=== PATIENT | male | born 1955 | race Caucasian/White ===

== ENCOUNTER 2023-05-01 11:30 | Outpatient (OUT) | payer MEDICARE, SELFPAY ==
--- NOTE | 2023-05-01 11:42 | XR_ITS ---
[address] [address] Patient Name: FUNMI JULIO MRN: [id number] date: 1955 Sex: M Assigned Patient Location: RAD Current Patient Location: [facility] Accession/Order Number: [id number] Exam Date: 05/01/2023 11:45 Report Date: 05/01/2023 13:56 At the request of: SHAIKH TIFFANIE Procedure: XR lumbar spine 2-3V EXAM: XR lumbar spine 2-3V HISTORY: Low Back Pain M54.50 COMPARISON: None. TECHNIQUE: 3 views FINDINGS: Satisfactory alignment. Maintained vertebral body heights and disc spaces. No acute fracture or subluxation. Scattered calcified atherosclerotic disease of aorta. IMPRESSION: Unremarkable exam. Electronically authenticated by: ORLANDO RIVERS Date: 05/01/2023 13:56
== END 2023-05-01 11:31 ==
LOC: RAD 11:35
PROVIDERS: PCP Internal Medicine; Visit Provider Internal Medicine
DX: M54.50 Low back pain, unspecified (principal)
CPT/HCPCS: 72100

== ENCOUNTER 2023-05-08 12:37 | Outpatient (RCR) | payer MEDICARE, SELFPAY | END 2023-05-23 14:15 | disposition home or self-care (01) | LOC: PT 12:37 | PROVIDERS: PCP Internal Medicine; Visit Provider Internal Medicine | DX: M54.50 Low back pain, unspecified (principal) | CPT/HCPCS: 97010; 97032; 97035; 97110; 97140; 97161; G0283 ==

== ENCOUNTER 2023-07-27 09:19 | Outpatient (OUT) | payer MEDICARE, SELFPAY ==
[2023-07-27 09:40] LABS: Basophils Percent Auto 0.3 % (0.2-2.0); Eosinophils Absolute Auto 0.2 10^3/uL (0.0-0.7); Eosinophils Percent Auto 2.1 % (0.9-7.0); Hematocrit 44.6 % (42.0-54.0); Hemoglobin 14.9 g/dL (14.0-18.0); Immature Granulocytes Abs Auto 0.03 10^3/uL (0.00-0.03); Immature Granulocytes Pct Auto 0.3 % (0.0-0.5); Lymphocytes Absolute Auto 2.7 10^3/uL (1.2-3.8); Lymphocytes Percent Auto 31.6 % (20.5-60.0); Mean Corpuscular HGB Conc 33.4 g/dL (29.9-35.2); Mean Corpuscular Hemoglobin 30.7 pg (25.9-34.0); Mean Corpuscular Volume 91.8 fL (80.0-94.0); Mean Platelet Volume 8.3 fL (9.5-13.5); Monocytes Absolute Auto 0.7 10^3/uL (0.3-0.8); Monocytes Percent Auto 7.8 % (1.7-12.0); Neutrophils Percent Auto 57.9 % (43.0-75.0); Platelet Count 321 10^3/uL (150-450); Red Blood Count 4.86 10^6/uL (4.70-6.10); Red Cell Distribution Width 13.3 % (11.0-15.0); White Blood Count 8.7 10^3/uL (4.0-11.0)
[2023-07-27 10:36] LABS: Alanine Aminotransferase 34 U/L (16-63); Albumin Globulin Ratio 0.9; Albumin Level 3.6 g/dL (3.4-5.0); Alkaline Phosphatase 67 U/L (46-116); Anion Gap 13.1; Aspartate Amino Transferase 18 U/L (15-37); BUN Creatinine Ratio 14.6; Bilirubin Direct 0.1 mg/dL (0.0-0.2); Bilirubin Total 0.3 mg/dL (0.2-1.0); Calcium 9.1 mg/dL (8.5-10.1); Carbon Dioxide 29.8 mmol/L (21.0-32.0); Chloride 102 mmol/L (98-107); Chol HDL Ratio 3.2; Cholesterol 132 mg/dL (<=200); Estimated GFR (African America >60 (>=60); Estimated GFR (Non-African Ame >60 (>=60); Globulin 4.2 g/dL; Glucose 104 mg/dL (74-106); HDL Cholesterol 41 mg/dL (40-60); LDL Cholesterol Calculated 63.8 mg/dL; Potassium 3.9 mmol/L (3.5-5.1); Sodium 141 mmol/L (136-145); Thyroid Stimulating Hormone 0.766 uIU/mL (0.358-3.740); Total Protein 7.8 g/dL (6.4-8.2); Triglycerides 136 mg/dL (<=150); VLDL CHOLESTEROL 27.2 mg/dL
[2023-07-27 11:58] LABS: Prostate Specific Antigen Scrn 2.77 ng/mL (<=4.00)
== END 2023-07-27 09:20 | disposition home or self-care (01) ==
LOC: LAB 09:21
PROVIDERS: PCP Family Medicine; Visit Provider Family Medicine
DX: I10 Essential (primary) hypertension (principal); Z79.899 Other long term (current) drug therapy; E78.5 Hyperlipidemia, unspecified; Z12.5 Encounter for screening for malignant neoplasm of prostate; E66.9 Obesity, unspecified
CPT/HCPCS: 36415; 80048; 80061; 80076; 84443; 85025; G0103

== ENCOUNTER 2023-10-30 12:21 | Emergency (ER) | payer MEDICARE, SELFPAY ==
[2023-10-30 12:25] VITALS: BP 145/80; PULSE 75; RESP 20; TEMP 36.8; O2SAT 96; BMI 38.8
--- NOTE | 2023-10-30 12:42 | ED.GENADUL1 ---
HPI - General Adult General Chief complaint: Upper Respiratory Infection Stated complaint: SORE THROAT Time Seen by Provider: 10/30/23 12:30 Source: patient Mode of arrival: walk-in Limitations: no limitations History of Present Illness HPI narrative: 67-year-old male presents for sore throat. He's had it for ten days. About fourteen days ago he was around somebody who had strep throat. No fever. He's had minimal cough. No vomiting diarrhea or skin rash. It is worse when he swallows. Related Data Home Medications Medication Instructions Recorded Confirmed amlodipine 10 mg tablet 10 mg PO DAILY 10/30/23 10/30/23 atorvastatin 40 mg tablet 40 mg PO DAILY 10/30/23 10/30/23 isosorbide mononitrate 60 mg 60 mg PO DAILY 10/30/23 10/30/23 tablet,extended release 24 hr lisinopril 20 1 tab PO BID 10/30/23 10/30/23 mg-hydrochlorothiazide 12.5 mg tablet metformin 850 mg tablet 850 mg PO DAILY 10/30/23 10/30/23 metoprolol succinate 100 mg 100 mg PO DAILY 10/30/23 10/30/23 tablet,extended release 24 hr omeprazole 20 mg capsule,delayed 20 mg PO DAILY 10/30/23 10/30/23 release paroxetine HCl 40 mg tablet 40 mg PO DAILY 10/30/23 10/30/23 Allergies Allergy/AdvReac Type Severity Reaction Status Date / Time oxycodone [From OxyContin] Allergy Hives Verified 10/30/23 12:25 Review of Systems ROS Narrative A ten point review of systems is negative except as noted above. Exam Narrative Exam Narrative: Nurses note and vital signs reviewed and patient is not hypoxic. General: The patient appears well and in no apparent distress. Patient is resting comfortably on cart. Skin: Warm, dry, no pallor noted. There is no rash noted. Head: Normocephalic, atraumatic Eye: Normal conjunctiva, no drainage Ears, Nose, Mouth, and Throat: oral mucosa is moist. Nares patent. no pharyngeal erythema or exudate noted. He is handling his oral secretions well. Cardiovascular: Regular Rate and Rhythm Respiratory: Patient is in no distress, no accessory muscle use, lungs are clear to auscultation, no wheezing, rales or rhonchi Back: non-tender GI: soft and nontender Musculoskeletal: The patient has no evidence of calf tenderness, no pitting edema, symmetrical pulses noted bilaterally Neurological: A&O, normal speech Psychiatric: Cooperative Constitutional Vital Signs, click to edit/add: Last Vital Signs Temp 98.3 F 10/30/23 12:25 Pulse 75 10/30/23 12:25 Resp 20 10/30/23 12:25 BP 145/80 H 10/30/23 12:25 Pulse Ox 96 10/30/23 12:25 O2 Del Method Room Air 10/30/23 12:25 Course Vital Signs Vital signs: Vital Signs Temperature 98.3 F 10/30/23 12:25 Pulse Rate 75 10/30/23 12:25 Respiratory Rate 20 10/30/23 12:25 Blood Pressure 145/80 H 10/30/23 12:25 Pulse Oximetry 96 10/30/23 12:25 Oxygen Delivery Method Room Air 10/30/23 12:25 Temperature 98.3 F 10/30/23 12:25 Pulse Rate 75 10/30/23 12:25 Respiratory Rate 20 10/30/23 12:25 Blood Pressure 145/80 H 10/30/23 12:25 Pulse Oximetry 96 10/30/23 12:25 Oxygen Delivery Method Room Air 10/30/23 12:25 Medical Decision Making MDM Narrative Medical decision making narrative: Strep test is negative. He was given IM Decadron and discharged home. There is no indication for an antibiotic. Treatment diagnosis and follow-up were discussed with the patient. Lab Data Lab results reviewed: Yes I reviewed the patient's lab results Labs: Lab Results 10/30/23 Range/Units 12:47 Streptococcus Screen Negative Discharge Plan Discharge Chief Complaint: Upper Respiratory Infection Clinical Impression: Viral pharyngitis Patient Disposition: Home, Self-Care Time of Disposition Decision: 14:06 Condition: Good Mode of Transportation: Private Vehicle Prescriptions / Home Meds: No Action amlodipine 10 mg tablet 10 mg PO DAILY atorvastatin 40 mg tablet 40 mg PO DAILY isosorbide mononitrate 60 mg tablet extended release 24 hr 60 mg PO DAILY lisinopril-hydrochlorothiazide 20-12.5 mg tablet 1 tab PO BID metformin 850 mg tablet 850 mg PO DAILY metoprolol succinate 100 mg tablet extended release 24 hr 100 mg PO DAILY omeprazole 20 mg capsule,delayed release(DR/EC) 20 mg PO DAILY paroxetine HCl 40 mg tablet 40 mg PO DAILY Instructions: Pharyngitis (ED) Stand Alone Forms: Portal Instructions Referrals: Rachid Henning MD [Primary Care Provider] - 1 week
[2023-10-30 13:00] LABS: Internal Control Within Normal Limits; Strep A Antigen Screen Negative
[2023-10-30] MEDS: DEXAMETHASONE SOD PHOS 10 MG/ML VIAL IM (14:13)
== END 2023-10-30 14:23 | disposition home or self-care (01) ==
PROVIDERS: Emergency Provider Emergency Medicine; PCP Family Medicine
DX: J02.8 Acute pharyngitis due to other specified organisms (principal); Z79.899 Other long term (current) drug therapy; Z79.84 Long term (current) use of oral hypoglycemic drugs
CPT/HCPCS: 87070; 87880; 96372; 99284; J1100

== ENCOUNTER 2023-11-16 10:23 | Outpatient (OUT) | payer MEDICARE, SELFPAY ==
--- NOTE | 2023-11-16 10:29 | XR_ITS ---
The [address] [address] Patient Name: FUNMI JULIO MRN: [id number] date: 1955 Sex: M Assigned Patient Location: LAB Current Patient Location: LAB Accession/Order Number: [id number] Exam Date: 11/16/2023 10:21 Report Date: 11/18/2023 01:56 At the request of: SHAIKH TIFFANIE Procedure: XR chest 2V EXAMINATION: XR chest 2V HISTORY: acute bronchitis with wheezing J20.9 , cough, congestion COMPARISON: No relevant comparison available. FINDINGS: LUNGS: Mild haziness and stranding within left midlung and a few small opacities. VASCULATURE: No increased pulmonary vasculature. PLEURA: No pneumothorax, effusion, or pleural thickening. CARDIAC: No cardiomegaly or cardiac silhouette abnormality. MEDIASTINUM: No visible mass or adenopathy. BONES: No fracture or visible bone lesion. OTHER: Negative. XR/XR chest 2V IMPRESSION: 1. Mild atelectasis or infiltrates within left midlung. Consider follow-up to document clearing. Electronically authenticated by: SHAZIA ARMSTRONG Date: 11/18/2023 01:56
--- OUTSIDE RECORDS SUMMARY | 2023-11-16 10:41 | XMS_ITS | CCD ---
Author Name Unknown Address [address] [place] [address] Organization [facility] Care Team Providers Care Felt Cementer Name Role Phone SADIA, MARIANELA Admitting Unavailable SADIA, MARIANELA Attending Unavailable MISC, DR CAICEDO Primary Care Unavailable SADIA, MARIANELA Consulting Unavailable SADIA, MARIANELA Admitting Unavailable SADIA, MARIANELA Attending Unavailable MISC, DR CAICEDO Primary Care Unavailable ZIEBER, DR DRE Santos Consulting Unavailable SADIA, MARIANELA Consulting Unavailable SADIA, MARIANELA Admitting Unavailable SADIA, MARIANELA Attending Unavailable MISC, DR CAICEDO Primary Care Unavailable SADIA, MARIANELA Admitting Unavailable SADIA, MARIANELA Attending Unavailable MISC, DR CAICEDO Primary Care Unavailable Funmi RESENDIZ Attending Unavailable LIT BARILLAS Referring Unavailable MOUKARONDA CEDILLO Attending Unavailable JOYCE CANTRELL Attending Unavailable Allergies Allergy Classification Reported Allergen(s) Allergy Type Date of Onset Reaction(s) Facility (1 source) oxyCODONE Drug Allergy 01-25-2022 [facility] Repository (1 source) oxyCODONE; Translations: [OXYCODONE] Drug Allergy 07-20-2022 [facility] Repository Problems Active Problems Problem Classification Problem Date Documented Date Episodic/Chronic Coronary atherosclerosis and other heart disease (6 sources) Atherosclerotic heart disease of [place] coronary artery without angina pectoris; Translations: [ASHD [place] W/O ANGINA PECTORIS] Onset: 01-12-2022 Chronic Disorders of lipid metabolism (2 sources) Mixed hyperlipidemia; Translations: [Mixed hyperlipidemia] Onset: 07-20-2022 Chronic Essential hypertension (2 sources) Essential (primary) hypertension; Translations: [Essential (primary) hypertension] Onset: 07-20-2022 Chronic Past or Other Problems Problem Classification Problem Date Documented Da te Episodic/Chronic Diabetes mellitus without complication (1 source) Prediabetes; Translations: [PREDIABETES] Onset: 01-14-2022 Episodic Other lower respiratory disease (5 sources) Other forms of dyspnea; Translations: [OTHER FORMS OF DYSPNEA] Onset: 01-14-2022 Episodic Results Test Name Value Interpretation Reference Range Facility Office Visiton 08-31-2023 Follow-up visit [id number] Funmi Julio 1955 Date Provider Department Center 08/31/2023 JOYCE RICKETTS EVIE Flores Family History Problem Relation Age of Onset Hypertension Brother Heart attack Other Family Status - Relation Status Age at Brother Other Level of Service:47405 AL OFFICE/OUTPATIENT ESTABLISHED LOW MDM 20-29 MIN Reason for Visit and Comments: Coronary Artery Disease [187] Hypertension [185625] Hyperlipidemia [182] Normal [facility] Reminderson 07-27-2023 Reminders - From: Tracy Walls LPN To: N - Clinical; Sent: 07/27/2023 08:16:44 EDT Show up: 03/09/2024 07:00:00 EDT Subject: colonoscopy recall Due Date/Time: 04/08/2024 07:00:00 EDT Reminder/Recall Patient due for screening colonoscopy 03/2024. Normal [facility] Physician Referralon 023 Physician Referral [id number] .[id number]:127 Normal [facility] In office Testingon 11-02-20 22 In office Testing [id number]# 1.00CD:127 Normal [facility] Follow-Upon 09-12-2022 Follow-Up [id number] Funmi Julio 1955 Date Provider Department Center 09/12/2022 RONDA MÉNDEZ EVIE Flores Family History Problem Relation Age of Onset Hypertension Brother Heart attack Other Family Status - Relation Status Age at Brother Other Level of Service:01244 AL OFFICE/OUTPATIENT ESTABLISHED MOD MDM 30-39 MIN Reason for Visit and Comments: Coronary Artery Disease [187] Hyperlipidemia [182] Normal [facility] CARDIAC STRESS TESTon 2021 CARDIAC STRESS TEST CARDIAC STRESS TEST LEXISCAN CARDIOLITE STRESS TEST Requesting Physician: Procedure Date: INDICATIONS: Dyspnea on exertion. METHODS: After the risks, benefits and alternatives were explained, written informed consent was obtained. The patient was brought to the stress lab in a resting and fasting state. He was connected to the appropriate hemodynamic and electrocardiographic monitoring. Lexiscan 0.4 mg was infused intravenously. The patient was monitored for the standard duration and transferred to the nuclear lab for further imaging. There were no complications. FINDINGS: Hemodynamics: Resting heart rate was 61 beats per minute increasing to a maximum of 84 beats per minute. Resting blood pressure was 114/80, decreasing to a minimum of 106/72. The patient experienced chest discomfort and throat discomfort after 3 minutes following infusion. Electrocardiography: Rest EKG: Sinus rhythm, 69 beats per minute, nonspecific ST-T wave changes. Borderline resting EKG. During infusion and recovery: No significant ST-T wave changes noted, no significant arrhythmias seen. FINAL IMPRESSIONS: 1. No ischemic EKG changes seen on Lexiscan pharmacological stress test. 2. Nuclear images are to be read, interpreted and reported in a separate dictation. [facility] Signed and Approved by: DR PADDY STANFORD 02/01/2022 09:17:00 Normal [facility] NM STRESS/REST MULTIon 01-25 NM STRESS/REST MULTI Patient: FUNMI JULIO Exam Date: 01/25/2022 : 1955 Gender:M Ordering : MARIANELA MCCULLOUGH Admission #: [id number] Family : Order #: [id number] CLICK HERE TO VIEW EXAM RADIOLOGY REPORT PROCEDURE: RADIONUCLIDE IMAGING STRESS/REST MULTI COMPARISON: None. INDICATIONS: Dyspnea TECHNIQUE: Exam Description: Stress/Rest two day protocol gated SPECT Rest Imagin.5 mCi Tc-99m Cardiolite IV on 01/26/2022 Stress Imaging 25.7 mCi Tc-99m Cardiolite IV on 01/26/2022 Exercise Protocol: 0.4 mg Lexiscan given IV Heart Rate (bpm): Rest: 61 Max: 84 PMHR: 53 Blood Pressure: Rest: 114/80 Max: 116/78 Symptoms: chest pain and throat discomfort Rest and peak stress ECG findings were normal and the exercise portion of the study was normal per attending physician Dr. Stanford . For more details please see separate cardiac stress test report. FINDINGS: QUALITY OF STUDY: Excellent. PERFUSION DEFECT: LOCATION: Basal inferior. Mid-inferior. SIZE: Small (1-2 segments). SEVERITY: Mild. TYPE: Persistent. WALL MOTION: Normal. LV SIZE: Normal. 108 mL. TID / TCD: None; 0.9 LVEF: Normal. Calculated EF 70%. SUMMARY: Myocardial perfusion imaging study has ABNORMAL findings. CONCLUSION: 1. No acute or reversible ischemia. 2. Diaphragm attenuation artifact versus mild fixed perfusion defect of the inferior wall. Artifact is favored. 3. Normal wall motion and ejection fraction. Dictated by: Dre Irvin M.D. on 01/26/2022 at 11:46 Approved by: Dre Irvin M.D. on 01/26/2022 at 11:49 Normal [facility] BNPon 01-12-2022 NT PRO BNP <11.1 Normal <=900.0 [facility] Comment on above: Performed By: #### B DIRECTOR OF RETENTION, CMP, LIPID, CRP #### [facility] [address] [place] [address] Dr. Ramesh Min CBC AUTO DIFFon 01-12-2022 BASO # 0.1 103/ul Normal 0.0-0.1 [facility] Comment on above: Performed By: #### C BC #### [facility] [address] [place] [address] Dr. Ramesh Min Basophils/100 WBC (Bld) 0.5 % Normal 0.2-2.0 [facility] Comment on above: Performed By: #### C BC #### [facility] [address] [place] [address] Dr. Ramesh Min EO # 0.2 103/ul Normal 0.0-0.7 [facility] Comment on above: Performed By: #### C BC #### [facility] [address] [place] [address] Dr. Ramesh Min Eosinophils/100 WBC (Bld) 2.0 % Normal 0.9-7.0 [facility] Comment on above: Performed By: #### C BC #### [facility] [address] [place] [address] Dr. Ramesh Min Erythrocyte distribution width (RBC) [Ratio] 13.1 % Normal 11.0-15.0 [facility] Comment on above: Performed By: #### C BC #### [facility] [address] [place] [address] Dr. Ramesh Min Hematocrit (Bld) [Volume fraction] 44.2 % Normal 42.0-54.0 [facility] Comment on above: Performed By: #### C BC #### [facility] [address] [place] [address] Dr. Ramesh Min Hemoglobin (Bld) [Mass/Vol] 14.8 g/dL Normal 14.0-18.0 [facility] Comment on above: Performed By: #### C BC #### [facility] [address] [place] [address] Dr. Ramesh Min IG # 0.05 10e3/ul Critically high 0.00-0.03 [facility] Comment on above: Performed By: #### C BC #### [facility] [address] [place] [address] Dr. Ramesh Min IG % 0.5 % Normal 0.0-0.5 [facility] Comment on above: Performed By: #### C BC #### [facility] [address] [place] [address] Dr. Ramesh Min LYMPH # 2.4 103/ul Normal 1.2-3.8 [facility] Comment on above: Performed By: #### C BC #### [facility] [address] [place] [address] Dr. Ramesh Min Lymphocytes/100 WBC (Bld) 25.0 % Normal 20.5-60.0 [facility] Comment on above: Performed By: #### C BC #### [facility] [address] [place] [address] Dr. Ramesh Min MANUAL DIFF REQ NO Normal [facility] Comment on above: Performed By: #### C BC #### [facility] [address] [address] [address] Ramesh Min MCH (RBC) [Entitic mass] 30.5 pg Normal 25.9-34.0 [facility] Comment on above: Performed By: #### C BC #### [facility] [address] [place] [address] Dr. Ramesh Min MCHC (RBC) [Mass/Vol] 33.5 g/dL Normal 29.9-35.2 [facility] Comment on above: Performed By: #### C BC #### [facility] [address] [place] [address] Dr. Ramesh Min MCV (RBC) [Entitic vol] 91.1 fL Normal 80.0-94.0 [facility] Comment on above: Performed By: #### C BC #### [facility] [address] [place] [address] Dr. Ramesh Min MONO # 0.8 103/ul Normal 0.3-0.8 [facility] Comment on above: Performed By: #### C BC #### [facility] [address] [place] [address] Dr. Ramesh Min Monocytes/100 WBC (Bld) 8.8 % Normal 1.7-12.0 [facility] Comment on above: Performed By: #### C BC #### [facility] [address] [place] [address] Dr. Ramesh Min NEUT # 6.1 103/ul Normal 1.4-6.5 [facility] Comment on above: Performed By: #### C BC #### [facility] [address] [place] [address] Dr. Ramesh Min Neutrophils/100 WBC (Bld) 63.2 % Normal 43.0-75.0 [facility] Comment on above: Performed By: #### C BC #### [facility] [address] [place] [address] Dr. Ramesh Min Platelet mean volume (Bld) [Entitic vol] 8.7 fL Critically low 9.5-13.5 [facility] Comment on above: Performed By: #### C BC #### [facility] [address] [address] [address] Ramesh Min PLT 330 103/ul Normal 150-450 [facility] Comment on above: Performed By: #### C BC #### [facility] [id number] Ramesh Min RBC 4.85 106/ul Normal 4.70-6.10 [facility] Comment on above: Performed By: #### C BC #### [facility] [id number] Ramesh Min WBC 9.6 103/ul Normal 4.0-11.0 [facility] Comment on above: Performed By: #### C BC #### [facility] [address] [address] [address] Ramesh Min CRPon 01-12-2022 CRP 0.7 mg/dL Normal <=1.0 [facility] Comment on above: Performed By: #### B DIRECTOR OF RETENTION, CMP, LIPID, CRP #### [facility] [address] [place], [place] [id number] Dr. Ramesh Min ECHOCARDIO M/2D COMPLETEon 0 01-12-2022 ECHOCARDIO M/2D COMPLETE Patient: FUNMI JULIO Exam Date: 01/12/2022 : 1955 Gender:M Ordering : MARIANELA MCCULLOUGH Admission #: [id number] Family : Order #: [id number] CLICK HERE TO VIEW EXAM ECHOCARDIOGRAM REPORT PROCEDURE: CARDIO PULMONARY ECHOCARDIO M/2D COMP INDICATIONS: Dyspnea on exertion COMPARISON: None. DESCRIPTION: COMPLETE ECHOCARDIOGRAM Real-time transthoracic echocardiography with 2D, M-mode, spectral and color flow Doppler performed. QUALITY: Technical quality was adequate. 72 286# 146/92 HR 74 LEFT VENTRICLE: Normal chamber size. Proximal septal hypertrophy (sigmoid septum). Global left ventricular systolic function is normal. Visual estimation of left ventricular ejection fraction is 60%. No regional wall motion abnormalities. LV EF: Normal at 60%. DIASTOLIC: Normal diastolic function. ATRIAL SEPTUM: LEFT ATRIUM: Normal chamber size. RIGHT ATRIUM: Normal chamber size. RIGHT VENTRICLE: Mild dilatation. Normal right ventricular systolic function. TRICUSPID VALVE: Normal mobility and thickness. No stenosis with trivial regurgitation. No evidence of pulmonary hypertension. Unable to calculate right sided pressures due to lack of tricuspid regurgitation. MITRAL VALVE: Normal mobility and thickness. No evidence of mitral valve stenosis. Trivial mitral regurgitation. AORTIC VALVE: Normal trileaflet appearance. No evidence of aortic valve stenosis. No aortic regurgitation. AORTIC ROOT: Normal diameter and appearance. The ascending aorta and aortic arch are normal in size. PULMONIC VALVE: Normal thickness and mobility. No stenosis. Trivial regurgitation. PERICARDIUM: No evidence of pericardial effusion. IVC: Collapses with inspirations. IVC is normal in size. PLEURA: CONCLUSION: 1. Normal ventricular function. 2. No valvular dysfunction. 3. No pericardial effusion. 4. Unable to assess right sided pressures due to lack to measurable tricuspid regurgitation. Adult Echocardiography Procedure Report Left Ventricle Left Atrium Mitral Valve Right Ventricle Aorta Aortic Valve Peak Velocity (Antegrade Flow): 1.34 m/s AoV Area (Peak Woo): 2.72 cm2, 2.72 cm2 Peak Velocity(Antegrade Flow): 1.34 m/s Peak Gradient(Antegrade Flow): 7.16 mm[Hg] Tricuspid Valve Peak Velocity: 0.36 m/s, 0.37 m/s Pulmonic Valve PV Max Woo (0.6 - 0.9 m per sec): 1.24 m/s PV Max Gradient: 6.18 mm[Hg] Right Atrium Dictated by: Ronda Gao M.D. on 01/13/2022 at 08:49 Approved by: Ronda Gao M.D. on 01/13/2022 at 08:51 Normal [facility] GLYCOHEMOGLOBIN A1Con 2021 ADA RECOMMENDATION ADA THERAPEUTIC TARGET 6.0 - 7.0 ACTION SUGGESTED > 7.0 Normal [facility] Comment on above: Performed By: #### A 1C #### [facility] [address] [place], [place] [address] Dr. Ramesh Min Glucose [Mass/Vol] 137 mg/dL Normal [facility] Comment on above: Performed By: #### A 1C #### [facility] [address] [place], [place] [address] Dr. Ramesh Min HbA1c (Bld) [Mass fraction] 6.4 % Critically high <=6.0 [facility] Comment on above: Performed By: #### A 1C #### [facility] [address] [address] [address] Ramesh Min LIPID PROFILEon 01-12-2022 CHOL-HDL RATIO NORM SEE BELOW Normal [facility] Comment on above: Result Comment: 3.3 - 4.4 LOW RISK 4.4 - 7.1 AVERAGE RISK 7.1 - 11.0 MODERATE RISK >11.0 HIGH RISK Performed By: #### B DIRECTOR OF RETENTION, CMP, LIPID, CRP #### [facility] [address] [address] [address] Ramesh Min Cholesterol [Mass/Vol] 125 mg/dL Normal <=200 [facility] Comment on above: Performed By: #### B DIRECTOR OF RETENTION, CMP, LIPID, CRP #### [facility] [address] [address] [address] Ramesh Min Cholesterol in HDL [Mass/Vol] 39 mg/dL Normal [facility] Comment on above: Performed By: #### B DIRECTOR OF RETENTION, CMP, LIPID, CRP #### [facility] [address] [address] [address] Ramesh Min Cholesterol in LDL [Mass/Vol] 69.2 mg/dL Normal [facility] Comment on above: Performed By: #### B DIRECTOR OF RETENTION, CMP, LIPID, CRP #### [facility] [address] [address] [address] Ramesh Min Cholesterol.total/Ch olesterol in HDL [Mass ratio] 3.2 {ratio} Normal [facility] Comment on above: Performed By: #### B DIRECTOR OF RETENTION, CMP, LIPID, CRP #### [facility] [address] [address] [address] Ramesh Min HDL NORMAL > or = 60 mg/dl - LO W CARDIOVASCULAR RISK <40 mg/dl - HIGH CARDIOVASCULAR RISK Normal [facility] Comment on above: Performed By: #### B DIRECTOR OF RETENTION, CMP, LIPID, CRP #### [facility] [address] [address] [address] Ramesh Min LDL CALC NORMAL SEE BELOW Normal [facility] Comment on above: Result Comment: <100 mg/dl OPTIMAL 100 - 129 mg/dl NEAR OR ABOVE OPTIMAL 130 - 159 mg/dl BORDERLINE HIGH 160 - 189 mg/dl HIGH >190 mg/dl VERY HIGH Performed By: #### B DIRECTOR OF RETENTION, CMP, LIPID, CRP #### [facility] [address] [address] [address] Ramesh Min Triglyceride [Mass/Vol] 84 mg/dL Normal <=150 [facility] Comment on above: Performed By: #### B DIRECTOR OF RETENTION, CMP, LIPID, CRP #### [facility] [address] [address] [address] Ramesh Min VLDL CALC 16.8 mg/dL Normal [facility] Comment on above: Performed By: #### B DIRECTOR OF RETENTION, CMP, LIPID, CRP #### [facility] [address] [place] [address] Dr. Ramesh Min PROF 14(COMP METB)on 022 Albumin [Mass/Vol] 3.7 g/dL Normal 3.5-5.0 [facility] Comment on above: Performed By: #### B DIRECTOR OF RETENTION, CMP, LIPID, CRP #### [facility] [address] [place] [address] Dr. Ramesh Min Albumin/Globulin [Mass ratio] 0.9 {ratio} Normal [facility] Comment on above: Performed By: #### B DIRECTOR OF RETENTION, CMP, LIPID, CRP #### [facility] [address] [place] [address] Dr. Ramesh Min ALP [Catalytic activity/Vol] 75 U/L Normal 38-126 [facility] Comment on above: Performed By: #### B DIRECTOR OF RETENTION, CMP, LIPID, CRP #### [facility] [address] [place] [address] Dr. Ramesh Min ALT [Catalytic activity/Vol] 33 U/L Normal 21-72 [facility] Comment on above: Performed By: #### B DIRECTOR OF RETENTION, CMP, LIPID, CRP #### [facility] [address] [place] [address] Dr. Ramesh Min Anion gap [Moles/Vol] 10.8 mmol/L Normal [facility] Comment on above: Performed By: #### B DIRECTOR OF RETENTION, CMP, LIPID, CRP #### [facility] [address] [address] [address] Ramesh Min AST [Catalytic activity/Vol] 15 U/L Critically low 17-59 [facility] Comment on above: Performed By: #### B DIRECTOR OF RETENTION, CMP, LIPID, CRP #### [facility] [address] [address] [address] Ramesh Min Bilirubin [Mass/Vol] 0.3 mg/dL Normal 0.2-1.3 [facility] Comment on above: Performed By: #### B DIRECTOR OF RETENTION, CMP, LIPID, CRP #### [facility] [address] [address] [address] Ramesh Min Calcium [Mass/Vol] 9.5 mg/dL Normal 8.4-10.2 [facility] Comment on above: Performed By: #### B DIRECTOR OF RETENTION, CMP, LIPID, CRP #### [facility] [address] [place] [address] Dr. Ramesh Min Chloride [Moles/Vol] 103 mmol/L Normal 98-107 [facility] Comment on above: Performed By: #### B DIRECTOR OF RETENTION, CMP, LIPID, CRP #### [facility] [address] [address] [address] Ramesh Min CO2 [Moles/Vol] 28.4 mmol/L Normal 22.0-30.0 [facility] Comment on above: Performed By: #### B DIRECTOR OF RETENTION, CMP, LIPID, CRP #### [facility] [address] [place] [address] Dr. Ramesh Min Creatinine [Mass/Vol] 0.92 mg/dL Normal 0.66-1.25 [facility] Comment on above: Performed By: #### B DIRECTOR OF RETENTION, CMP, LIPID, CRP #### [facility] [address] [place] [address] Dr. Ramesh Min EGFR-AF ANGOLAN >60 Normal >=60 [facility] Comment on above: Performed By: #### B DIRECTOR OF RETENTION, CMP, LIPID, CRP #### [facility] [address] [place] [address] Dr. Ramesh Min EGFR-NON AF ANGOLAN >60 Normal >=60 [facility] Comment on above: Performed By: #### B DIRECTOR OF RETENTION, CMP, LIPID, CRP #### [facility] [address] [place] [address] Dr. Ramesh Min Globulin (S) [Mass/Vol] 4.1 g/dL Normal [facility] Comment on above: Performed By: #### B DIRECTOR OF RETENTION, CMP, LIPID, CRP #### [facility] [address] [place] [address] Dr. Ramesh Min Glucose [Mass/Vol] 104 mg/dL Normal 74-106 [facility] Comment on above: Performed By: #### B DIRECTOR OF RETENTION, CMP, LIPID, CRP #### [facility] [address] [place] [address] Dr. Ramesh Min Potassium [Moles/Vol] 4.2 mmol/L Normal 3.4-5.0 [facility] Comment on above: Performed By: #### B DIRECTOR OF RETENTION, CMP, LIPID, CRP #### [facility] [address] [place] [address] Dr. Ramesh Min Protein [Mass/Vol] 7.8 g/dL Normal 6.1-8.2 [facility] Comment on above: Performed By: #### B DIRECTOR OF RETENTION, CMP, LIPID, CRP #### [facility] [address] [place] [address] Dr. Ramesh Min Sodium [Moles/Vol] 138 mmol/L Normal 137-145 [facility] Comment on above: Performed By: #### B DIRECTOR OF RETENTION, CMP, LIPID, CRP #### [facility] [address] [place] [address] Dr. Ramesh Min Urea nitrogen [Mass/Vol] 18.0 mg/dL Normal 9.0-20.0 [facility] Comment on above: Performed By: #### B DIRECTOR OF RETENTION, CMP, LIPID, CRP #### [facility] [address] [place] [address] Dr. Ramesh Min Urea nitrogen/Creatinine [Mass ratio] 19.6 mg/mg Normal [facility] Comment on above: Performed By: #### B DIRECTOR OF RETENTION, CMP, LIPID, CRP #### [facility] [id number] [facility]ames[facility] 20 mm/hr Normal <=20 [facility] Comment on above: Performed By: #### S EDR #### [facility] [id number] Ramesh Min Encounters Encounter Date Encounter Type Care Provider Facility Start: 08-31-2023 End: 08-31-2023 ambulatory JOYCE [facility] Start: 08-04-2023 ambulatory Funmi R NILL Facility :[facility] [place] [facility] Start: 07-21-2023 ambulatory Funmi NILL Facility:[facility] Start: 09-12-2022 End: 09-12-2022 ambulatory [facility] Start: 07-03-2022 ambulatory MARIANELA SADIA Facility:[facility] Start: 01-26-2022 ambulatory MARIANELA SADIA Facility:[facility] Start: 01-25-2022 End: 01-26-2022 ambulatory MARIANELA SADIA Facility:[facility] Start: 01-12-2022 End: 01-13-2022 ambulatory MARIANELA SADIA Facility:[facility] Payers Date Payer Category Payer Private Health Insurance [facility] [id number] 1957 Private Health Insurance [facility] [id number] 1959 Private Health Insurance [facility] [id number] 1957 Self-pay 1955 Unknown [id number] 1955 Unknown [id number] [id number] [id number] 1955 Unknown [id number] [id number] [id number] 1955 Unknown [id number] [id number] [id number] 1955 Unknown [id number] [id number] [id number] Progress note 08-31-2023 Note Date & Type Note Facility 08-31-2023 Note [facility] SUBJECTIVE Chief Complaint Patient presents with Coronary Artery Disease Hypertension Hyperlipidemia Funmi Julio is a 67 y.o. male here for follow-up. HPI PMHx: CAD (minimal with sluggish flow throughout the coronary arterial tree per 2014 cath - cath was done due to an abnormal stress test showing inferior and inferoapical ischemia), HTN, HLD 08/30/2023 He has been feeling well. He retired in November this year. 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 He denies c/o CP, dyspnea, orthopnea, PND, LE edema, dizziness/LH, palpitations. He does not check his BP at home. BP is high today. He does admit to eating a higher amount of salt yesterday on his watermelon. Patient Active Problem List Diagnosis Acute sinusitis Anemia Benign essential hypertension Coronary arteriosclerosis Cough Depressive disorder Hyperlipidemia Hypertensive disorder Impaired fasting glucose Neck sprain Pain in joint involving ankle and foot Precordial pain Solitary pulmonary nodule Chronic GERD Constipation Dyslipidemia Obesity (BMI 30-39.9) Rectal bleeding Sleep apnea Type 2 diabetes mellitus without complication, without long-term current use of insulin ([facility]) Past Medical History: Diagnosis Date Coronary artery disease Diabetes mellitus ([facility]) Hyperlipidemia Hypertension Sleep apnea Family History Problem Relation Name Age of Onset Hypertension Brother Heart attack Other Social History Tobacco Use Smoking status: Never Smokeless tobacco: Current Types: Chew Substance Use Topics Alcohol use: Yes Comment: MODERATE Drug use: Never Allergies Allergen Reactions Oxycodone ROS Constitutional: Positive for malaise/fatigue. Musculoskeletal: Positive for back pain. Neurological: Positive for light-headedness. All other systems reviewed and are negative. OBJECTIVE Visit Vitals BP (!) 159/95 (BP Location: Left arm, Patient Position: Sitting) Pulse 73 Ht 1.829 m (6') Wt 134 kg (296 lb) SpO2 94% BMI 40.14 kg/m??? Smoking Status Never BSA 2.61 m??? Medications: Current Outpatient Medications: amLODIPine (Norvasc) 10 mg tablet, Take 1 tablet by mouth in the morning., Disp: , Rfl: aspirin 81 mg chewable tablet, Chew 81 mg in the morning., Disp: , Rfl: atorvastatin (Lipitor) 40 mg tablet, Take 40 mg by mouth in the morning., Disp: , Rfl: isosorbide mononitrate ER (Imdur) 60 mg 24 hr tablet, Take 1 tablet (60 mg) by mouth in the morning., Disp: 90 tablet, Rfl: 3 lisinopriL-hydrochlorothiazide 20-12.5 mg tablet, Take 1 tablet by mouth in the morning and at bedtime., Disp: , Rfl: metFORMIN (Glucophage) 850 mg tablet, Take 1 tablet by mouth in the morning., Disp: , Rfl: metoprolol succinate XL (Toprol-XL) 100 mg 24 hr tablet, Take 1 tablet (100 mg) by mouth in the morning. Do not crush or chew., Disp: 90 tablet, Rfl: 3 omeprazole (PriLOSEC) [address] capsule, Take 1 capsule by mouth in the morning., Disp: , Rfl: PARoxetine (Paxil) 40 mg tablet, Take 1 tablet by mouth in the morning., Disp: , Rfl: Physical Exam Constitutional: Appearance: Normal appearance. He is obese. HENT: Head: Normocephalic and atraumatic. Right Ear: External ear normal. Left Ear: External ear normal. Eyes: Extraocular Movements: Extraocular movements intact. Pupils: Pupils are equal, round, and reactive to light. Neck: Vascular: No carotid bruit. Cardiovascular: Rate and Rhythm: Normal rate and regular rhythm. Pulses: Normal pulses. Heart sounds: Normal heart sounds. Pulmonary: Effort: Pulmonary effort is normal. Breath sounds: Normal breath sounds. Abdominal: General: Bowel sounds are normal. Palpations: Abdomen is soft. Musculoskeletal: General: Normal range of motion. Cervical back: Neck supple. Right lower leg: No edema. Left lower leg: No edema. Skin: General: Skin is warm and dry. Neurological: General: No focal deficit present. Mental Status: He is alert and oriented to person, place, and time. Psychiatric: Mood and Affect: Mood normal. Behavior: Behavior normal. Thought Content: Thought content normal. Judgment: Judgment normal. Labs: 08/30/23 Hgb 14.9, wbc 8.7, plt 321 Cr. 1.03, BUN 15, eGFR >60, K 3.9, Na 141, AST 18, ALT 34 Chol 132, trig 136, HDL 41, LDL 63 TSH 0.766 labs from 01/12/2022: CBC normal, Potassium 4.2 normal, Renal function normal BUN 18, creatinine 0.92, Liver function normal, Cholesterol 125, HDL 39, triglyceride 84, LDL 69, CRP normal 0.7, proBNP less than 11.1 normal Hemoglobin A1c 6.4 10/27/2018: normal BMP, CBC. LDL 51. TG 56 Testing/Procedures: stress test-01/26/2022: No acute or reversible ischemia, noted diaphragm artifact versus fixed perfusion defect, Normal wall motion and ejection fraction, No ischemic EKG changes seen on Lexiscan Echocardiogram from 01/12/2022 (more content not included)... [facility] Progress note 08-31-2023 Note Date & Type Note Facility 08-31-2023 Note Patient here for 1 y ear follow up CAD, hypertension, and hyperlipidemia. Dr. Gao increased metoprolol to 100mg daily at last apt. Had routine labs in Jun 2023. Denies chest pain and SOB. Review of Systems Constitutional: Positive for malaise/fatigue. Musculoskeletal: Positive for back pain. Neurological: Positive for light-headedness. All other systems reviewed and are negative. [facility] Progress note 09-12-2022 Note Date & Type Note Facility 09-12-2022 Note Subjective Funmi Julio is a 66 y.o. year old male patient being seen for 6 mo follow up CAD, hypertension, and hyperlipidemia. Had labs and CT chest in Jun 2022. Denies chest pain and SOB. Patient Active Problem List Diagnosis Acute sinusitis Anemia Benign essential hypertension Coronary arteriosclerosis Cough Depressive disorder Hyperlipidemia Hypertensive disorder Impaired fasting glucose Neck sprain Pain in joint involving ankle and foot Precordial pain Solitary pulmonary nodule Family History Problem Relation Name Age of Onset Hypertension Brother Heart attack Other Social History Tobacco Use Smoking status: Never Smokeless tobacco: Current Substance Use Topics Alcohol use: Yes Comment: MODERATE Drug use: Never HPI Funmi Julio is seen in follow up. He is a 66 yo man with prior history of hypertension and minimal CAD by cath in 2014 [His stress test showed inferior and inferoapical ischemia. He was referred for cardiac catheterization on 10/29/2015. This showed Minimal coronary artery disease with sluggish flow throughout the coronary arterial tree. He was recommended aspirin and statin therapy and risk factor control]. Follow-up cardiac testing in December and January 2022 was within normal limits. He has been well with no chest pain and no shortness of breath. His blood pressure has not been controlled. Recently had a CT scan of the chest to follow-up on pulmonary nodule. This is per his PCP. Results are not available during this visit. Review of Systems Constitutional: Positive for malaise/fatigue. Musculoskeletal: Positive for back pain. Neurological: Positive for light-headedness. Objective Visit Vitals BP (!) 148/93 (BP Location: Left arm, Patient Position: Sitting) Pulse (P) 70 Ht 1.829 m (6') Wt 129 kg (285 lb) SpO2 (P) 96% BMI 38.65 kg/m??? Smoking Status Never BSA 2.56 m??? Physical Exam Constitutional: Appearance: He is well-developed. He is obese. He is not ill-appearing. HENT: Head: Normocephalic and atraumatic. Nose: Nose normal. Eyes: General: No scleral icterus. Pupils: Pupils are equal, round, and reactive to light. Neck: Thyroid: No thyromegaly. Vascular: No JVD. Cardiovascular: Rate and Rhythm: Normal rate and regular rhythm. Heart sounds: Normal heart sounds. No murmur heard. No friction rub. No gallop. Pulmonary: Effort: Pulmonary effort is normal. No respiratory distress. Breath sounds: Normal breath sounds. No wheezing or rales. Chest: Chest wall: No tenderness. Abdominal: General: Bowel sounds are normal. There is no distension. Palpations: Abdomen is soft. Tenderness: There is no abdominal tenderness. Musculoskeletal: General: No swelling. Cervical back: Neck supple. Skin: General: Skin is warm and dry. Neurological: General: No focal deficit present. Mental Status: He is alert and oriented to person, place, and time. Psychiatric: Mood and Affect: Mood normal. Behavior: Behavior is cooperative. Judgment: Judgment normal. Allergies Allergies Allergen Reactions Oxycodone Medications Current Outpatient Medications: amLODIPine (Norvasc) 10 mg tablet, Take 1 tablet by mouth in the morning., Disp: , Rfl: aspirin 81 mg chewable tablet, Chew 81 mg in the morning., Disp: , Rfl: atorvastatin (Lipitor) 40 mg tablet, Take 40 mg by mouth in the morning., Disp: , Rfl: isosorbide mononitrate ER (Imdur) 60 mg 24 hr tablet, Take 1 tablet by mouth in the morning., Disp: , Rfl: lisinopriL-hydrochlorothiazide 20-12.5 mg tablet, Take 1 tablet by mouth in the morning and at bedtime., Disp: , Rfl: metFORMIN (Glucophage) 850 mg tablet, Take 1 tablet by mouth in the morning., Disp: , Rfl: omeprazole (PriLOSEC) [address] capsule, Take 1 capsule by mouth in the morning., Disp: , Rfl: PARoxetine (Paxil) 40 mg tablet, Take 1 tablet by mouth in the morning., Disp: , Rfl: metoprolol succinate XL (Toprol-XL) 100 mg 24 hr tablet, Take 1 tablet (100 mg) by mouth in the morning. Do not crush or chew., Disp: 90 tablet, Rfl: 3 Recent Labs No visits with results within 6 Month(s) from this visit. Latest known visit with results is: No results found for any previous visit. 10/27/2018: normal BMP, CBC. LDL 51. TG 56 labs from 01/12/2022: CBC normal, Potassium 4.2 normal, Renal function normal BUN 18, creatinine 0.92, Liver function normal, Cholesterol 125, HDL 39, triglyceride 84, LDL 69, CRP normal 0.7, proBNP less than 11.1 normal Hemoglobin A1c 6.4 Imaging and other tests stress test-01/26/2022: No acute or reversible ischemia, noted diaphragm artifact versus fixed perfusion defect, Normal wall motion and ejection fraction, No ischemic EKG changes seen on Lexiscan Echocardiogram from 01/12/2022 normal LV systolic function EF's 60%, No valvular dysfunction, No pericardial effusion Assessment/Plan Diagnoses and all orders for this visit: Coronary artery dise (more content not included)... [facility] Summary Purpose Family History No Family History Records FoundNo Family History Records FoundNo Family History Records Found Advance Directives No Advanced Directives Records FoundNo Advanced Directives Records FoundNo Advanced Directives Records Found Additional Source Comments (unrecognized sect ion and content) No Status Records FoundNo Status Records FoundNo Status Records Found INFORMATION SOURCE (unrecogn ized section and content) DATE CREATED AUTHOR 07/03/2022 [facility] DATE CREATED AUTHOR AUTHOR'S ORGANIZ ATION [facility]/2023 [facility] DATE CREATED AUTHOR AUTHOR'S ORGANIZ ATION 09/03/2023 [facility] FOR RECORDS PERTAINING TO PATIENTS WHO ARE OR HAVE BEEN ENROLLED IN A CHEMICAL DEPENDENCY/SUBSTANCEABUSE PROGRAM, SOME INFORMATION MAY BE OMITTED. This clinical summary was aggregated from multiple sources. Caution should be exercised in using it in the provision of clinical care. This summary normalizes information from multiple sources, and as a consequence, information in this document may materially change the coding, format and clinical context of patient data. In addition, data may be omitted in some cases. CLINICAL DECISIONS SHOULD BE BASED ON THE PRIMARY CLINICAL RECORDS. [employer] provides no warranty or guarantee of the accuracy or completeness of information in this document.
== END 2023-11-16 10:24 | disposition home or self-care (01) ==
LOC: LAB 10:24
PROVIDERS: PCP Family Medicine; Visit Provider Internal Medicine
DX: J20.9 Acute bronchitis, unspecified (principal)
CPT/HCPCS: 71046

== ENCOUNTER 2024-01-11 10:04 | Outpatient (OUT) | payer MEDICARE, SELFPAY ==
--- NOTE | 2024-01-11 11:32 | XR_ITS ---
The [address] [address] Patient Name: FUNMI JULIO MRN: [id number] date: 1955 Sex: M Assigned Patient Location: RAD Current Patient Location: RAD Accession/Order Number: [id number] Exam Date: 01/11/2024 11:38 Report Date: 01/11/2024 11:53 At the request of: SHAIKH TIFFANIE Procedure: XR chest 2V EXAM: XR chest 2V HISTORY: Abnormal Chest Xray R93.89 COMPARISON: 11/16/2023 TECHNIQUE: PA and lateral views of the chest. FINDINGS: The cardiomediastinal silhouette is normal. Improved mild atelectasis or infiltrate of the right mid lung field since prior exam. There is no pneumothorax. No pleural effusion is noted. The osseous structures are intact. XR/XR chest 2V IMPRESSION: Improved mild atelectasis or infiltrate of the right mid lung field since prior exam. 7 mm pulmonary nodule of the left lower lobe is unchanged. Electronically authenticated by: ORLANDO RIVERS Date: 01/11/2024 11:53
== END 2024-01-11 10:05 | disposition home or self-care (01) ==
LOC: RAD 10:13
PROVIDERS: PCP Family Medicine; Visit Provider Internal Medicine
DX: R93.89 Abnormal findings on diagnostic imaging of other specified body structures (principal); R91.1 Solitary pulmonary nodule
CPT/HCPCS: 71046

== ENCOUNTER 2024-02-01 10:53 | Outpatient (OUT) | payer MEDICARE, SELFPAY ==
--- OUTSIDE RECORDS SUMMARY | 2024-02-01 10:59 | XMS_ITS | CCD ---
Author Name Unknown Address [address] [place] [address] Organization [facility] Care Team Providers Care Director Of Restaurant Operations Name Role Phone SADIA, MARIANELA Admitting Unavailable [...] RESENDIZ Attending Unavailable LIT BARILLAS Referring Unavailable RONDA THIBODEAUX Attending Unavailable JOYCE CANTRELL Attending Unavailable SHAIKH MORENO Attending Unavailable SHAIKH MORENO Attending Unavailable Allergies Allergy Classification Reported Allergen(s) Allergy Type Date of Onset Reaction(s) Facility (1 source) oxyCODONE Drug Allergy 01-25-2022 [facility] Repository (1 source) oxyCODONE; Translations: [OXYCODONE] Drug Allergy 07-20-2022 [facility] Repository Problems Active Problems Problem Classification Problem Date Documented Date Episodic/Chronic Coronary atherosclerosis and other heart disease (6 sources) Atherosclerotic heart disease of [place] coronary artery without angina pectoris; Translations: [ASHD [place] CA W/O ANGINA PECTORIS] Onset: 01-12-2022 Chronic [...] Range Facility Office Visiton 08-31-2023 Follow-up visit [id number] Funmi Julio 1955 Date Provider Department Center 08/31/2023 JOYCE RICKETTS EVIE Flores Family History Problem Relation Age of Onset Hypertension Brother Heart attack Other Family Status - Relation Status Age at Brother Other Level of Service:22938 SD OFFICE/OUTPATIENT ESTABLISHED LOW MDM 20-29 MIN Reason for Visit and Comments: Coronary Artery Disease [187] Hypertension [097456] Hyperlipidemia [182] Normal [facility] Reminderson 07-27-2023 Reminders - From: Tracy Walls LPN To: N - Clinical; Sent: 07/27/2023 08:16:44 EDT Show up: 03/09/2024 07:00:00 EDT Subject: colonoscopy recall Due Date/Time: 04/08/2024 07:00:00 EDT Reminder/Recall Patient due for screening colonoscopy 03/2024. Normal [facility] Physician Referralon 023 Physician Referral [id number] .00CD:127 Normal [facility] In office Testingon 11-02-20 22 In office Testing [id number] 1.00CD:127 Normal [facility] Follow-Upon 09-12-2022 Follow-Up [id number] Funmi Julio 1955 Date Provider Department Center 09/12/2022 RONDA MÉNDEZ EVIE Flores Family History Problem Relation Age of Onset Hypertension Brother Heart attack Other Family Status - Relation Status Age at Brother Other Level of Service:95956 SD OFFICE/OUTPATIENT ESTABLISHED MOD MDM 30-39 MIN Reason for Visit and Comments: Coronary Artery Disease [187] Hyperlipidemia [182] Normal [facility] CARDIAC STRESS TESTon 2021 CARDIAC STRESS TEST [...] interpreted and reported in a separate dictation. [facility] Signed and Approved by: DR PADDY STANFORD 02/01/2022 09:17:00 Normal [facility] NM STRESS/REST MULTIon 01-25 NM STRESS/REST MULTI Patient: FUNMI JULIO Exam Date: 01/25/2022 : 1955 Gender:M Ordering : MARIANELA MCCULLOUGH Admission #: [id number] Family : Order #: [id number] CLICK HERE TO VIEW EXAM RADIOLOGY REPORT [...] M.D. on 01/26/2022 at 11:49 Normal [facility] BNPon 01-12-2022 NT PRO BNP <11.1 Normal <=900.0 [facility] Comment on above: Performed By: #### B RED CROSS WORKER, CMP, LIPID, CRP #### [facility] [address] [place] [address] Dr. Ramesh Min CBC AUTO DIFFon 01-12-2022 BASO # 0.1 103/ul Normal 0.0-0.1 [facility] Comment on above: Performed By: #### C BC #### [facility] [address] [place] [address] Dr. Ramesh Min Basophils/100 WBC (Bld) 0.5 % Normal 0.2-2.0 [facility] Comment on above: Performed By: #### C BC #### [facility] [address] [place] [address] Dr. Ramesh Min EO # 0.2 103/ul Normal 0.0-0.7 [facility] Comment on above: Performed By: #### C BC #### [facility] [address] [place] [address] Dr. Ramesh Min Eosinophils/100 WBC (Bld) 2.0 % Normal 0.9-7.0 [facility] Comment on above: Performed By: #### C BC #### [facility] [address] [place] [address] Dr. Ramesh Min Erythrocyte distribution width (RBC) [Ratio] 13.1 % Normal 11.0-15.0 [facility] Comment on above: Performed By: #### C BC #### [facility] [address] [place] [address] Dr. Ramesh Min Hematocrit (Bld) [Volume fraction] 44.2 % Normal 42.0-54.0 [facility] Comment on above: Performed By: #### C BC #### [facility] [address] [place] [address] Dr. Ramesh Min Hemoglobin (Bld) [Mass/Vol] 14.8 g/dL Normal 14.0-18.0 [facility] Comment on above: Performed By: #### C BC #### [facility] [address] [place] [address] Dr. Ramesh Min IG # 0.05 10e3/ul Critically high 0.00-0.03 [facility] Comment on above: Performed By: #### C BC #### [facility] [address] [place] [address] Dr. Ramesh Min IG % 0.5 % Normal 0.0-0.5 [facility] Comment on above: Performed By: #### C BC #### [facility] [address] [place] [address] Dr. Ramesh Min LYMPH # 2.4 103/ul Normal 1.2-3.8 [facility] Comment on above: Performed By: #### C BC #### [facility] [address] [place] [address] Dr. Ramesh Min Lymphocytes/100 WBC (Bld) 25.0 % Normal 20.5-60.0 [facility] Comment on above: Performed By: #### C BC #### [facility] [address] [place] [address] Dr. Ramesh Min MANUAL DIFF REQ NO [facility] Comment on above: Performed By: #### C BC #### [facility] [address] [address] [address] Ramesh Min MCH (RBC) [Entitic mass] 30.5 pg Normal 25.9-34.0 [facility] Comment on above: Performed By: #### C BC #### [facility] [address] [address] [address] Ramesh Min MCHC (RBC) [Mass/Vol] 33.5 g/dL Normal 29.9-35.2 [facility] Comment on above: Performed By: #### C BC #### [facility] [address] [place] [address] Dr. Ramesh Min MCV (RBC) [Entitic vol] 91.1 fL Normal 80.0-94.0 [facility] Comment on above: Performed By: #### C BC #### [facility] [address] [place] [address] Dr. Ramesh Min MONO # 0.8 103/ul Normal 0.3-0.8 [facility] Comment on above: Performed By: #### C BC #### [facility] [address] [place] [address] Dr. Ramesh Min Monocytes/100 WBC (Bld) 8.8 % Normal 1.7-12.0 [facility] Comment on above: Performed By: #### C BC #### [facility] [address] [place] [address] Dr. Ramesh Min NEUT # 6.1 103/ul Normal 1.4-6.5 [facility] Comment on above: Performed By: #### C BC #### [facility] [address] [place] [address] Dr. Ramesh Min Neutrophils/100 WBC (Bld) 63.2 % Normal 43.0-75.0 [facility] Comment on above: Performed By: #### C BC #### [facility] [address] [place] [address] Dr. Ramesh Min Platelet mean volume (Bld) [Entitic vol] 8.7 fL Critically low 9.5-13.5 [facility] Comment on above: Performed By: #### C BC #### [facility] [address] [place], [place] [address] Dr. Ramesh Min PLT 330 103/ul Normal 150-450 [facility] Comment on above: Performed By: #### C BC #### [facility] [address] [place], [place] [address] Dr. Ramesh Min RBC 4.85 106/ul Normal 4.70-6.10 [facility] Comment on above: Performed By: #### C BC #### [facility] [address] [place], [place] [address] Dr. Ramesh Min WBC 9.6 103/ul Normal 4.0-11.0 [facility] Comment on above: Performed By: #### C BC #### [facility] [address] [id number] [address] Ramesh Min CRPon 01-12-2022 CRP 0.7 mg/dL Normal <=1.0 [facility] Comment on above: Performed By: #### B RED CROSS WORKER, CMP, LIPID, CRP #### [facility] [address] [place], [place] [address] Dr. Ramesh Min ECHOCARDIO M/2D COMPLETEon 0 01-12-2022 ECHOCARDIO M/2D COMPLETE Patient: FUNMI JULIO Exam Date: 01/12/2022 : 1955 Gender:M Ordering : MARIANELA MCCULLOUGH Admission #: [id number] Family : Order #: [id number] CLICK HERE TO VIEW EXAM ECHOCARDIOGRAM REPORT [...] 6.18 mm[Hg] Right Atrium Dictated by: Ronda Thibodeaux M.D. on 01/13/2022 at 08:49 Approved by: Ronda Thibodeaux M.D. on 01/13/2022 at 08:51 Normal [facility] GLYCOHEMOGLOBIN A1Con 2021 ADA RECOMMENDATION ADA THERAPEUTIC TARGET 6.0 - 7.0 ACTION SUGGESTED > 7.0 Normal [facility] Comment on above: Performed By: #### A 1C #### [facility] [address] [address] [address] Ramesh Min Glucose [Mass/Vol] 137 mg/dL Normal [facility] Comment on above: Performed By: #### A 1C #### [facility] [address] [address] [address] Ramesh Min HbA1c (Bld) [Mass fraction] 6.4 % Critically high <=6.0 [facility] Comment on above: Performed By: #### A 1C #### [facility] [address] [address] [address] Ramesh Min LIPID PROFILEon 01-12-2022 CHOL-HDL RATIO NORM SEE BELOW Normal [facility] Comment on above: Result Comment: 3.3 - 4.4 LOW RISK 4.4 - 7.1 AVERAGE RISK 7.1 - 11.0 MODERATE RISK >11.0 HIGH RISK Performed By: #### B RED CROSS WORKER, CMP, LIPID, CRP #### [facility] [address] [address] [address] Ramesh Min Cholesterol [Mass/Vol] 125 mg/dL Normal <=200 [facility] Comment on above: Performed By: #### B RED CROSS WORKER, CMP, LIPID, CRP #### [facility] [address] [address] [address] Ramesh Min Cholesterol in HDL [Mass/Vol] 39 mg/dL Normal [facility] Comment on above: Performed By: #### B RED CROSS WORKER, CMP, LIPID, CRP #### [facility] [address] [address] [address] Ramesh Min Cholesterol in LDL [Mass/Vol] 69.2 mg/dL Normal [facility] Comment on above: Performed By: #### B RED CROSS WORKER, CMP, LIPID, CRP #### [facility] [address] [address] [address] Ramesh Min Cholesterol.total/Ch olesterol in HDL [Mass ratio] 3.2 {ratio} Normal [facility] Comment on above: Performed By: #### B RED CROSS WORKER, CMP, LIPID, CRP #### [facility] [address] [address] [address] Ramesh Min HDL NORMAL > or = 60 mg/dl - LO W CARDIOVASCULAR RISK <40 mg/dl - HIGH CARDIOVASCULAR RISK Normal [facility] Comment on above: Performed By: #### B RED CROSS WORKER, CMP, LIPID, CRP #### [facility] [address] [address] [address] Ramesh Min LDL CALC NORMAL SEE BELOW Normal [facility] Comment on above: Result Comment: <100 mg/dl OPTIMAL 100 - 129 mg/dl NEAR OR ABOVE OPTIMAL 130 - 159 mg/dl BORDERLINE HIGH 160 - 189 mg/dl HIGH >190 mg/dl VERY HIGH Performed By: #### B RED CROSS WORKER, CMP, LIPID, CRP #### [facility] [address] [address] [address] Ramesh Min Triglyceride [Mass/Vol] 84 mg/dL Normal <=150 [facility] Comment on above: Performed By: #### B RED CROSS WORKER, CMP, LIPID, CRP #### [facility] [address] [address] [address] Ramesh Min VLDL CALC 16.8 mg/dL Normal [facility] Comment on above: Performed By: #### B RED CROSS WORKER, CMP, LIPID, CRP #### [facility] [address] [address] [address] Ramesh Min PROF 14(COMP METB)on 022 Albumin [Mass/Vol] 3.7 g/dL Normal 3.5-5.[address] [facility] Comment on above: Performed By: #### B RED CROSS WORKER, CMP, LIPID, CRP #### [facility] [address] [address] [address] Ramesh Min Albumin/Globulin [Mass ratio] 0.9 {ratio} Normal [facility] Comment on above: Performed By: #### B RED CROSS WORKER, CMP, LIPID, CRP #### [facility] [address] [address] [address] Ramesh Min ALP [Catalytic activity/Vol] 75 U/L Normal 38-126 [facility] Comment on above: Performed By: #### B RED CROSS WORKER, CMP, LIPID, CRP #### [facility] [address] [address] [address] Ramesh Min ALT [Catalytic activity/Vol] 33 U/L Normal 21-72 [facility] Comment on above: Performed By: #### B RED CROSS WORKER, CMP, LIPID, CRP #### [facility] [address] [address] [address] Ramesh Min Anion gap [Moles/Vol] 10.8 mmol/L Normal [facility] Comment on above: Performed By: #### B RED CROSS WORKER, CMP, LIPID, CRP #### [facility] [address] [place] [address] Dr. Ramesh Min AST [Catalytic activity/Vol] 15 U/L Critically low 17-59 [facility] Comment on above: Performed By: #### B RED CROSS WORKER, CMP, LIPID, CRP #### [facility] [address] [place] [address] Dr. Ramesh Min Bilirubin [Mass/Vol] 0.3 mg/dL Normal 0.2-1.3 [facility] Comment on above: Performed By: #### B RED CROSS WORKER, CMP, LIPID, CRP #### [facility] [address] [place] [address] Dr. Ramesh Min Calcium [Mass/Vol] 9.5 mg/dL Normal 8.4-10.[address] [facility] Comment on above: Performed By: #### B RED CROSS WORKER, CMP, LIPID, CRP #### [facility] [address] [place] [address] Dr. Ramesh Min Chloride [Moles/Vol] 103 mmol/L Normal 98-107 [facility] Comment on above: Performed By: #### B RED CROSS WORKER, CMP, LIPID, CRP #### [facility] [address] [place] [address] Dr. Ramesh Min CO2 [Moles/Vol] 28.4 mmol/L Normal 22.0-30.0 [facility] Comment on above: Performed By: #### B RED CROSS WORKER, CMP, LIPID, CRP #### [facility] [address] [place] [address] Dr. Ramesh Min Creatinine [Mass/Vol] 0.92 mg/dL Normal 0.66-1.25 [facility] Comment on above: Performed By: #### B RED CROSS WORKER, CMP, LIPID, CRP #### [facility] [address] [place] [address] Dr. Ramesh Min EGFR-AF [facility] >60 Normal >=60 [facility] Comment on above: Performed By: #### B RED CROSS WORKER, CMP, LIPID, CRP #### [facility] [address] [address] [address] Ramesh Min EGFR-NON AF [facility] >60 Normal >=60 [facility] Comment on above: Performed By: #### B RED CROSS WORKER, CMP, LIPID, CRP #### [facility] [address] [address] [address] Ramesh Min Globulin (S) [Mass/Vol] 4.1 g/dL Normal [facility] Comment on above: Performed By: #### B RED CROSS WORKER, CMP, LIPID, CRP #### [facility] [address] [address] [address] Ramesh Min Glucose [Mass/Vol] 104 mg/dL Normal 74-106 [facility] Comment on above: Performed By: #### B RED CROSS WORKER, CMP, LIPID, CRP #### [facility] [address] [address] [address] Ramesh Min Potassium [Moles/Vol] 4.2 mmol/L Normal 3.4-5.0 [facility] Comment on above: Performed By: #### B RED CROSS WORKER, CMP, LIPID, CRP #### [facility] [address] [address] [address] Ramesh Min Protein [Mass/Vol] 7.8 g/dL Normal 6.1-8.2 [facility] Comment on above: Performed By: #### B RED CROSS WORKER, CMP, LIPID, CRP #### [facility] [address] [address] [address] Ramesh Min Sodium [Moles/Vol] 138 mmol/L Normal 137-145 [facility] Comment on above: Performed By: #### B RED CROSS WORKER, CMP, LIPID, CRP #### [facility] [address] [address] [address] Ramesh Min Urea nitrogen [Mass/Vol] 18.0 mg/dL Normal 9.0-20.0 [facility] Comment on above: Performed By: #### B RED CROSS WORKER, CMP, LIPID, CRP #### [facility] [address] [address] [address] Ramesh Min Urea nitrogen/Creatinine [Mass ratio] 19.6 mg/mg Normal [facility] Comment on above: Performed By: #### B RED CROSS WORKER, CMP, LIPID, CRP #### [facility] [address] [address] [address] Ramesh Min SED RATE [facility] 2021 SED RATE 20 mm/hr Normal <=20 [facility] Comment on above: Performed By: #### S EDR #### [facility] [address] [address] [address] Ramehs Min Encounters Encounter Date Encounter Type Care Provider Facility Start: 01-25-2024 End: 01-25-2024 ambulatory SHAIKH ROMILESVIA Not Available Start: 11-16-2023 End: 11-16-2023 ambulatory SHAIKH TIFFANIE Not Available Start: 08-31-2023 End: 08-31-2023 ambulatory [facility] Start: 08-04-2023 ambulatory Funmi RESENDIZ Facility :[facility]rego Start: 07-21-2023 ambulatory Funmi RESENDIZ Facility:[facility] [place] Start: 09-12-2022 End: 09-12-2022 ambulatory [facility] Start: 07-03-2022 ambulatory MARIANELA SADIA Facility:[facility] Start: 01-26-2022 ambulatory MARIANELA SADIA Facility:[facility] Start: 01-25-2022 End: 01-26-2022 ambulatory MARIANELA SADIA Facility:[facility] Start: 01-12-2022 End: 01-13-2022 ambulatory MARIANELA SADIA Facility:[facility] Payers Date Payer Category Payer Private Health Insurance [id number] Private Health Insurance EBM [id number] Private Health Insurance EBM [id number] Self-pay 1955 Unknown [id number] 2.16.84 [id number] 1955 Unknown [id number] 2.16.84 [id number] 1955 Unknown [id number] 2.16.84 [id number] 1955 Unknown [id number] 2.16.84 [id number] 1955 Unknown [id number] 2.16.8 [id number] 1955 Unknown [id number] 2.16.84 [id number] 1955 Unknown [id number] Progress note 08-31-2023 Note Date & Type Note Facility 08-31-2023 Note [facility] SUBJECTIVE Chief Complaint Patient presents with [...] year. 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 [facility] Progress note 08-31-2023 Note Date & Type Note Facility 08-31-2023 Note Patient here for 1 y ear follow up CAD, hypertension, and hyperlipidemia. Dr. Thibodeaux increased metoprolol to 100mg daily at last apt. Had routine labs in Jun 2023. Denies chest pain and SOB. Review of Systems Constitutional: Positive for malaise/fatigue. Musculoskeletal: Positive for back pain. Neurological: Positive for light-headedness. All other systems reviewed and are negative. [facility] Progress note 09-12-2022 Note Date & Type [...] Coronary artery dise (more content not included)... [facility] Summary Purpose Family History No Family History Records FoundNo Family History Records FoundNo Family History Records FoundNo Family History Records Found Advance Directives No Advanced Directives Records FoundNo Advanced Directives Records FoundNo Advanced Directives Records FoundNo Advanced Directives Records Found Additional Source Comments (unrecognized sect ion and content) No Status Records FoundNo Status Records FoundNo Status Records FoundNo Status Records Found INFORMATION SOURCE (unrecogn ized section and content) DATE CREATED AUTHOR 07/03/2022 [facility] DATE CREATED AUTHOR AUTHOR'S ORGANIZ ATION 07/28/2023 [facility] DATE CREATED AUTHOR AUTHOR'S ORGANIZ ATION 09/03/2023 [facility] DATE CREATED AUTHOR AUTHOR'S ORGANIZ ATION 01/27/2024 [facility] EPIC FOR RECORDS PERTAINING TO PATIENTS WHO ARE [...] BE BASED ON THE PRIMARY CLINICAL RECORDS. [facility] [employer] provides no warranty or guarantee of the accuracy or completeness of information in this document.
[2024-02-01 11:09] LABS: Basophils Absolute Auto 0.1 10^3/uL (0.0-0.1); Basophils Percent Auto 0.6 % (0.2-2.0); Eosinophils Absolute Auto 0.1 10^3/uL (0.0-0.7); Eosinophils Percent Auto 1.4 % (0.9-7.0); Hematocrit 45.5 % (42.0-54.0); Hemoglobin 14.5 g/dL (14.0-18.0); Immature Granulocytes Abs Auto 0.02 10^3/uL (0.00-0.03); Immature Granulocytes Pct Auto 0.2 % (0.0-0.5); Lymphocytes Absolute Auto 3.6 10^3/uL (1.2-3.8); Lymphocytes Percent Auto 35.8 % (20.5-60.0); Mean Corpuscular HGB Conc 31.9 g/dL (29.9-35.2); Mean Corpuscular Hemoglobin 29.6 pg (25.9-34.0); Mean Corpuscular Volume 92.9 fL (80.0-94.0); Mean Platelet Volume 8.9 fL (9.5-13.5); Monocytes Absolute Auto 0.6 10^3/uL (0.3-0.8); Monocytes Percent Auto 5.4 % (1.7-12.0); Neutrophils Absolute Auto 5.7 10^3/uL (1.4-6.5); Neutrophils Percent Auto 56.6 % (43.0-75.0); Platelet Count 351 10^3/uL (150-450); Red Cell Distribution Width 13.9 % (11.0-15.0); White Blood Count 10.1 10^3/uL (4.0-11.0)
[2024-02-01 11:32] LABS: Estimated Average Glucose 140 mg/dL; Glycohemoglobin A1C 6.5 % (4.5-6.2)
[2024-02-01 11:40] LABS: Alanine Aminotransferase 44 U/L (16-63); Albumin Globulin Ratio 0.8; Albumin Level 3.5 g/dL (3.4-5.0); Alkaline Phosphatase 67 U/L (46-116); Anion Gap 10.8; Aspartate Amino Transferase 19 U/L (15-37); BUN Creatinine Ratio 10.9; Bilirubin Total 0.4 mg/dL (0.2-1.0); Calcium 8.8 mg/dL (8.5-10.1); Carbon Dioxide 32.1 mmol/L (21.0-32.0); Chloride 101 mmol/L (98-107); Chol HDL Ratio 3.1; Cholesterol 125 mg/dL (<=200); Estimated GFR (African America >60 (>=60); Estimated GFR (Non-African Ame >60 (>=60); Globulin 4.4 g/dL; Glucose 106 mg/dL (74-106); HDL Cholesterol 40 mg/dL (40-60); LDL Cholesterol Calculated 63.2 mg/dL; Potassium 3.9 mmol/L (3.5-5.1); Sodium 140 mmol/L (136-145); Total Protein 7.9 g/dL (6.4-8.2); Triglycerides 109 mg/dL (<=150); VLDL CHOLESTEROL 21.8 mg/dL
[2024-02-01 13:16] LABS: Microalbum Creatinine Ratio Ur 18.4 mg/g (0.0-29.9); Microalbumin Urine Random 2.4 mg/dL (<=30.0)
== END 2024-02-01 10:54 | disposition home or self-care (01) ==
LOC: LAB 10:54
PROVIDERS: PCP Internal Medicine; Visit Provider Internal Medicine
DX: I25.10 Atherosclerotic heart disease of native coronary artery without angina pectoris (principal); E11.9 Type 2 diabetes mellitus without complications; I10 Essential (primary) hypertension; E78.5 Hyperlipidemia, unspecified
CPT/HCPCS: 36415; 80053; 80061; 82043; 82570; 83036; 85025

== ENCOUNTER 2024-02-14 20:57 | Outpatient (OUT) | payer MEDICARE, SELFPAY ==
--- OUTSIDE RECORDS SUMMARY | 2024-02-14 21:00 | XMS_ITS | CCD ---
Author Organization [facility] Care Team Providers Care Sound Person Name Role Phone SADIA, MARIANELA Admitting Unavailable [...] (1 source) oxyCODONE Drug Allergy 01-25-2022 [facility] Repository (1 source) oxyCODONE; Translations: [OXYCODONE] Drug Allergy 07-20-2022 [facility] Repository Problems Active Problems Problem Classification Problem Date Documented Date Episodic/Chronic Coronary atherosclerosis and other heart disease (6 sources) Atherosclerotic heart disease of [place] coronary artery without angina pectoris; Translations: [ASHD [place] CA W/O ANGINA PECTORIS] Onset: 01-12-2022 Chronic [...] Range Facility Office Visiton 08-31-2023 Follow-up visit [id number] Funmi Julio 1955 Date Provider Department Center 08/31/2023 JOYCE RICKETTS EVIE Flores Family History Problem Relation Age of Onset Hypertension Brother Heart attack Other Family Status - Relation Status Age at Brother Other Level of Service:56354 [place] OFFICE/OUTPATIENT ESTABLISHED LOW MDM 20-29 MIN Reason for Visit and Comments: Coronary Artery Disease [187] Hypertension [227937] Hyperlipidemia [182] Normal [facility] Reminderson 07-27-2023 Reminders - From: Tracy Walls LPN To: N - Clinical; Sent: 07/27/2023 08:16:44 EDT Show up: 03/09/2024 07:00:00 EDT Subject: colonoscopy recall Due Date/Time: 04/08/2024 07:00:00 EDT Reminder/Recall Patient due for screening colonoscopy 03/2024. Normal [facility] Physician Referralon 023 Physician Referral [id number] .00CD:127 Normal [facility] In office Testingon 11-02-20 22 In office Testing [id number] 1.00CD:127 Normal [facility] Follow-Upon 09-12-2022 Follow-Up [id number] Funmi Julio 1955 Date Provider Department Center 09/12/2022 RONDA MÉNDEZ EVIE Flores Family History Problem Relation Age of Onset Hypertension Brother Heart attack Other Family Status - Relation Status Age at Brother Other Level of Service:50931 [place] OFFICE/OUTPATIENT ESTABLISHED MOD MDM 30-39 MIN Reason for Visit and Comments: Coronary Artery Disease [187] Hyperlipidemia [182] Normal [facility] CARDIAC STRESS TESTon 2021 CARDIAC STRESS [...] interpreted and reported in a separate dictation. [facility] Signed and Approved by: DR PADDY STANFORD 02/01/2022 09:17:00 Normal [facility] NM STRESS/REST MULTIon 01-25 NM STRESS/REST MULTI Patient: FUNMI JULIO Exam Date: 01/25/2022 : 1955 Gender:M Ordering : MARIANELA MCCULLOUGH Admission #: [id number] Family : Order #: [id number] CLICK HERE TO VIEW EXAM RADIOLOGY REPORT [...] M.D. on 01/26/2022 at 11:49 Normal [facility] BNPon 01-12-2022 NT PRO BNP <11.1 Normal <=900.0 [facility] Comment on above: Performed By: #### B ASSEMBLY SUPERVISOR, CMP, LIPID, CRP #### [facility] [address] [place] [address] Dr. Ramesh Min CBC AUTO DIFFon 01-12-2022 BASO # 0.1 103/ul Normal 0.0-0.1 [facility] Comment on above: Performed By: #### C BC #### [facility] [address] [place] [address] Dr. Ramesh Min Basophils/100 WBC (Bld) 0.5 % Normal 0.2-2.0 [facility] Comment on above: Performed By: #### C BC #### [facility] [address] [place] [address] Dr. Ramesh Min EO # 0.2 103/ul Normal 0.0-0.7 [facility] Comment on above: Performed By: #### C BC #### [facility] [address] [place] [address] Dr. Ramesh Min Eosinophils/100 WBC (Bld) 2.0 % Normal 0.9-7.0 [facility] Comment on above: Performed By: #### C BC #### [facility] [address] [place] [address] Dr. Ramesh Min Erythrocyte distribution width (RBC) [Ratio] 13.1 % Normal 11.0-15.0 [facility] Comment on above: Performed By: #### C BC #### [facility] [address] [place] [address] Dr. Ramesh Min Hematocrit (Bld) [Volume fraction] 44.2 % Normal 42.0-54.0 [facility] Comment on above: Performed By: #### C BC #### [facility] [address] [place] [address] Dr. Ramesh Min Hemoglobin (Bld) [Mass/Vol] 14.8 g/dL Normal 14.0-18.0 [facility] Comment on above: Performed By: #### C BC #### [facility] [address] [place] [address] Dr. Ramesh Min IG # 0.05 10e3/ul Critically high 0.00-0.03 [facility] Comment on above: Performed By: #### C BC #### [facility] [address] [place] [address] Dr. Ramesh Min IG % 0.5 % Normal 0.0-0.5 [facility] Comment on above: Performed By: #### C BC #### [facility] [address] [place] [address] Dr. Ramesh Min LYMPH # 2.4 103/ul Normal 1.2-3.8 [facility] Comment on above: Performed By: #### C BC #### [facility] [address] [place] [address] Dr. Ramesh Min Lymphocytes/100 WBC (Bld) 25.0 % Normal 20.5-60.0 [facility] Comment on above: Performed By: #### C BC #### [facility] [address] [place] [address] Dr. Ramesh Min MANUAL DIFF REQ NO Normal [facility] Comment on above: Performed By: #### C BC #### [facility] [address] [address] [address] Ramesh Min MCH (RBC) [Entitic mass] 30.5 pg Normal 25.9-34.0 [facility] Comment on above: Performed By: #### C BC #### [facility] [address] [place] [address] Dr. Ramesh Min MCHC (RBC) [Mass/Vol] 33.5 g/dL Normal 29.9-35.2 [facility] Comment on above: Performed By: #### C BC #### [facility] [address] [place] [address] Dr. Ramesh Min MCV (RBC) [Entitic vol] 91.1 fL Normal 80.0-94.0 [facility] Comment on above: Performed By: #### C BC #### [facility] [address] [place] [address] Dr. Ramesh Min MONO # 0.8 103/ul Normal 0.3-0.8 [facility] Comment on above: Performed By: #### C BC #### [facility] [address] [place] [address] Dr. Ramesh Min Monocytes/100 WBC (Bld) 8.8 % Normal 1.7-12.0 [facility] Comment on above: Performed By: #### C BC #### [facility] [address] [place] [address] Dr. Ramesh iMn NEUT # 6.1 103/ul Normal 1.4-6.5 [facility] Comment on above: Performed By: #### C BC #### [facility] [address] [place] [address] Dr. Ramesh Min Neutrophils/100 WBC (Bld) 63.2 % Normal 43.0-75.0 [facility] Comment on above: Performed By: #### C BC #### [facility] [address] [place] [address] Dr. Ramesh Min Platelet mean volume (Bld) [Entitic vol] 8.7 fL Critically low 9.5-13.5 [facility] Comment on above: Performed By: #### C BC #### [facility] [address] [address] [address] Ramesh Min PLT 330 103/ul Normal 150-450 [facility] Comment on above: Performed By: #### C BC #### [facility] [address] [id number] Ramesh Min RBC 4.85 106/ul Normal 4.70-6.10 [facility] Comment on above: Performed By: #### C BC #### [facility] [id number] Ramesh Min WBC 9.6 103/ul Normal 4.0-11.0 [facility] Comment on above: Performed By: #### C BC #### [facility] [address] [address] [address] Ramesh Min CRPon 01-12-2022 CRP 0.7 mg/dL Normal <=1.0 [facility] Comment on above: Performed By: #### B ASSEMBLY SUPERVISOR, CMP, LIPID, CRP #### [facility] [address] [place], [place] [id number] Dr. Ramesh Min ECHOCARDIO M/2D COMPLETEon 0 01-12-2022 ECHOCARDIO M/2D COMPLETE Patient: FUNMI JULIO Exam Date: 01/12/2022 : 1955 Gender:M Ordering : MARIANELA MCCULLOUGH Admission #: [id number] Family : Order #: [id number] CLICK HERE TO VIEW EXAM ECHOCARDIOGRAM REPORT [...] Thibodeaux M.D. on 01/13/2022 at 08:51 Normal [facility] GLYCOHEMOGLOBIN A1Con 2021 ADA RECOMMENDATION ADA THERAPEUTIC TARGET 6.0 - 7.0 ACTION SUGGESTED > 7.0 Normal [facility] Comment on above: Performed By: #### A 1C #### [facility] [address] [place], [place] [address] Dr. Ramesh Min Glucose [Mass/Vol] 137 mg/dL [facility] Comment on above: Performed By: #### A 1C #### [facility] [address] [place], [place] [address] Dr. Ramesh Min HbA1c (Bld) [Mass fraction] 6.4 % Critically high <=6.0 [facility] Comment on above: Performed By: #### A 1C #### [facility] [address] [address] [address] Ramesh Min LIPID PROFILEon 01-12-2022 CHOL-HDL RATIO NORM SEE BELOW Normal [facility] Comment on above: Result Comment: 3.3 - 4.4 LOW RISK 4.4 - 7.1 AVERAGE RISK 7.1 - 11.0 MODERATE RISK >11.0 HIGH RISK Performed By: #### B ASSEMBLY SUPERVISOR, CMP, LIPID, CRP #### [facility] [address] [address] [address] Ramesh Min Cholesterol [Mass/Vol] 125 mg/dL Normal <=200 [facility] Comment on above: Performed By: #### B ASSEMBLY SUPERVISOR, CMP, LIPID, CRP #### [facility] [address] [address] [address] Ramesh Min Cholesterol in HDL [Mass/Vol] 39 mg/dL Normal [facility] Comment on above: Performed By: #### B ASSEMBLY SUPERVISOR, CMP, LIPID, CRP #### [facility] [address] [address] [address] Ramesh Min Cholesterol in LDL [Mass/Vol] 69.2 mg/dL Normal [facility] Comment on above: Performed By: #### B ASSEMBLY SUPERVISOR, CMP, LIPID, CRP #### [facility] [address] [address] [address] Ramesh Min Cholesterol.total/Ch olesterol in HDL [Mass ratio] 3.2 {ratio} Normal [facility] Comment on above: Performed By: #### B ASSEMBLY SUPERVISOR, CMP, LIPID, CRP #### [facility] [address] [address] [address] Ramesh Min HDL NORMAL > or = 60 mg/dl - LO W CARDIOVASCULAR RISK <40 mg/dl - HIGH CARDIOVASCULAR RISK Normal [facility] Comment on above: Performed By: #### B ASSEMBLY SUPERVISOR, CMP, LIPID, CRP #### [facility] [address] [address] [address] Ramesh Min LDL CALC NORMAL SEE BELOW Normal [facility] Comment on above: Result Comment: <100 mg/dl OPTIMAL 100 - 129 mg/dl NEAR OR ABOVE OPTIMAL 130 - 159 mg/dl BORDERLINE HIGH 160 - 189 mg/dl HIGH >190 mg/dl VERY HIGH Performed By: #### B ASSEMBLY SUPERVISOR, CMP, LIPID, CRP #### [facility] [address] [address] [address] Ramesh Min Triglyceride [Mass/Vol] 84 mg/dL Normal <=150 [facility] Comment on above: Performed By: #### B ASSEMBLY SUPERVISOR, CMP, LIPID, CRP #### [facility] [address] [address] [address] Ramesh Min VLDL CALC 16.8 mg/dL Normal [facility] Comment on above: Performed By: #### B ASSEMBLY SUPERVISOR, CMP, LIPID, CRP #### [facility] [address] [place] [address] Dr. Ramesh Min PROF 14(COMP METB)on 022 Albumin [Mass/Vol] 3.7 g/dL Normal 3.5-5.0 [facility] Comment on above: Performed By: #### B ASSEMBLY SUPERVISOR, CMP, LIPID, CRP #### [facility] [address] [place] [address] Dr. Ramesh Min Albumin/Globulin [Mass ratio] 0.9 {ratio} Normal [facility] Comment on above: Performed By: #### B ASSEMBLY SUPERVISOR, CMP, LIPID, CRP #### [facility] [address] [place] [address] Dr. Ramesh Min ALP [Catalytic activity/Vol] 75 U/L Normal 38-126 [facility] Comment on above: Performed By: #### B ASSEMBLY SUPERVISOR, CMP, LIPID, CRP #### [facility] [address] [place] [address] Dr. Ramesh Min ALT [Catalytic activity/Vol] 33 U/L Normal 21-72 [facility] Comment on above: Performed By: #### B ASSEMBLY SUPERVISOR, CMP, LIPID, CRP #### [facility] [address] [address] [address] Ramesh Min Anion gap [Moles/Vol] 10.8 mmol/L Normal [facility] Comment on above: Performed By: #### B ASSEMBLY SUPERVISOR, CMP, LIPID, CRP #### [facility] [address] [address] [address] Ramesh Min AST [Catalytic activity/Vol] 15 U/L Critically low 17-59 [facility] Comment on above: Performed By: #### B ASSEMBLY SUPERVISOR, CMP, LIPID, CRP #### [facility] [address] [address] [address] Ramesh Min Bilirubin [Mass/Vol] 0.3 mg/dL Normal 0.2-1.3 [facility] Comment on above: Performed By: #### B ASSEMBLY SUPERVISOR, CMP, LIPID, CRP #### [facility] [address] [place] [address] Dr. Ramesh Min Calcium [Mass/Vol] 9.5 mg/dL Normal 8.4-10.2 [facility] Comment on above: Performed By: #### B ASSEMBLY SUPERVISOR, CMP, LIPID, CRP #### [facility] [address] [place] [address] Dr. Ramesh Min Chloride [Moles/Vol] 103 mmol/L Normal 98-107 [facility] Comment on above: Performed By: #### B ASSEMBLY SUPERVISOR, CMP, LIPID, CRP #### [facility] [address] [place] [address] Dr. Ramesh Min CO2 [Moles/Vol] 28.4 mmol/L Normal 22.0-30.0 [facility] Comment on above: Performed By: #### B ASSEMBLY SUPERVISOR, CMP, LIPID, CRP #### [facility] [address] [place] [address] Dr. Ramesh Min Creatinine [Mass/Vol] 0.92 mg/dL Normal 0.66-1.25 [facility] Comment on above: Performed By: #### B ASSEMBLY SUPERVISOR, CMP, LIPID, CRP #### [facility] [address] [place] [address] Dr. Ramesh Min EGFR-AF MACANESE >60 Normal >=60 [facility] Comment on above: Performed By: #### B ASSEMBLY SUPERVISOR, CMP, LIPID, CRP #### [facility] [address] [place] [address] Dr. Ramesh Min EGFR-NON AF MACANESE >60 Normal >=60 [facility] Comment on above: Performed By: #### B ASSEMBLY SUPERVISOR, CMP, LIPID, CRP #### [facility] [address] [place] [address] Dr. Ramesh Min Globulin (S) [Mass/Vol] 4.1 g/dL Normal [facility] Comment on above: Performed By: #### B ASSEMBLY SUPERVISOR, CMP, LIPID, CRP #### [facility] [address] [place] [address] Dr. Ramesh Min Glucose [Mass/Vol] 104 mg/dL Normal 74-106 [facility] Comment on above: Performed By: #### B ASSEMBLY SUPERVISOR, CMP, LIPID, CRP #### [facility] [address] [place] [address] Dr. Ramesh Min Potassium [Moles/Vol] 4.2 mmol/L Normal 3.4-5.0 [facility] Comment on above: Performed By: #### B ASSEMBLY SUPERVISOR, CMP, LIPID, CRP #### [facility] [address] [place] [address] Dr. Ramesh Min Protein [Mass/Vol] 7.8 g/dL Normal 6.1-8.2 [facility] Comment on above: Performed By: #### B ASSEMBLY SUPERVISOR, CMP, LIPID, CRP #### [facility] [address] [place] [address] Dr. Ramesh Min Sodium [Moles/Vol] 138 mmol/L Normal 137-145 [facility] Comment on above: Performed By: #### B ASSEMBLY SUPERVISOR, CMP, LIPID, CRP #### [facility] [address] [place] [address] Dr. Ramesh Min Urea nitrogen [Mass/Vol] 18.0 mg/dL Normal 9.0-20.0 [facility] Comment on above: Performed By: #### B ASSEMBLY SUPERVISOR, CMP, LIPID, CRP #### [facility] [address] [place] [address] Dr. Ramesh Min Urea nitrogen/Creatinine [Mass ratio] 19.6 mg/mg Normal [facility] Comment on above: Performed By: #### B ASSEMBLY SUPERVISOR, CMP, LIPID, CRP #### [facility] [address] [address] [address] [facility]ames[facility] 20 mm/hr Normal <=20 [facility] Comment on above: Performed By: #### S EDR #### [facility] [address] [address] [address] Ramesh Min Encounters Encounter Date Encounter Type Care Provider Facility Start: 01-25-2024 End: 01-25-2024 ambulatory SHAIKH TIFFANIE Not Available Start: 11-16-2023 End: 11-16-2023 ambulatory SHAIKH TIFFANIE Not Available Start: 08-31-2023 End: 08-31-2023 ambulatory JOYCE [facility] Start: 08-04-2023 ambulatory Funmi Danielle RESENDIZ [facility] Start: 07-21-2023 ambulatory Funmi RESENDIZ Facility:[facility] Start: 09-12-2022 End: 09-12-2022 ambulatory [facility] Start: 07-03-2022 ambulatory MARIANELA SADIA Facility:[facility] Start: 01-26-2022 ambulatory MARIANELA SADIA Facility:[facility] Start: 01-25-2022 End: 01-26-2022 ambulatory MARIANELA SADIA Facility:[facility] Start: 01-12-2022 End: 01-13-2022 ambulatory MARIANELA SADIA Facility:[facility] Payers Date Payer Category Payer Private Health Insurance [facility] [id number] 1959 Private Health Insurance [facility] [id number] 1957 Private Health Insurance [facility] [id number] 1957 Self-pay 1955 Unknown [id number] [id number] 1955 Unknown [id number] 2.16.84 [id number] 1955 Unknown [id number] 2.16.84 [id number] 1955 Unknown [id number] 2.16.84 [id number] 1955 Unknown [id number] 2.16.8 [id number] 1955 Unknown [id number] 2.16.84 [id number] 1955 Unknown [id number] Progress note 08-31-2023 Note Date & Type Note Facility 08-31-2023 Note [facility] SUBJECTIVE Chief Complaint Patient presents with Coronary [...] complication, without long-term current use of insulin ([facility]) Past Medical History: Diagnosis Date Coronary artery disease Diabetes mellitus ([facility]) Hyperlipidemia Hypertension Sleep apnea Family History [...] Echocardiogram from 01/12/2022 (more content not included)... [facility] Progress note 08-31-2023 Note Date & [...] All other systems reviewed and are negative. [facility] Progress note 09-12-2022 Note Date & [...] Coronary artery dise (more content not included)... [facility] Summary Purpose Family History No Family [...] content) DATE CREATED AUTHOR 07/03/2022 [facility] DATE CREATED AUTHOR AUTHOR'S ORGANIZ ATION 07/28/2023 [facility] DATE CREATED AUTHOR AUTHOR'S ORGANIZ ATION 09/03/2023 [facility] DATE CREATED AUTHOR AUTHOR'S ORGANIZ ATION 01/27/2024 [facility] EPIC FOR RECORDS PERTAINING TO [...] BE BASED ON THE PRIMARY CLINICAL RECORDS. [facility] [employer] [facility]. provides no warranty or guarantee of the accuracy or completeness of information in this document.
== END 2024-02-14 20:58 | disposition home or self-care (01) ==
LOC: SLEEP 20:57
PROVIDERS: PCP Internal Medicine; Visit Provider Internal Medicine
DX: G47.33 Obstructive sleep apnea (adult) (pediatric) (principal)
CPT/HCPCS: 95811

== ENCOUNTER 2024-03-06 08:36 | Outpatient (OUT) | payer MEDICARE, SELFPAY ==
--- NOTE | 2024-03-06 08:40 | CT_ITS ---
[address] [address] Patient Name: FUNMI JULIO MRN: [id number] date: 1955 Sex: M Assigned Patient Location: CT Current Patient Location: CT Accession/Order Number: [id number] Exam Date: 03/06/2024 08:46 Report Date: 03/06/2024 09:48 At the request of: SHAIKH TIFFANIE Procedure: CT chest wo con EXAMINATION: CT chest wo con HISTORY: Solitary Pulmonary Nodule R91.1 COMPARISON: 01/11/2024 TECHNIQUE: Multi-planar CT images were created with IV contrast. Axial, Coronal, and Sagittal images. Dose reduction techniques were achieved by using automated exposure control and/or adjustment of mA and/or kV according to patient size and/or use of iterative reconstruction technique. FINDINGS: LUNGS: Scattered subcentimeter calcified and noncalcified pulmonary nodules with the largest noncalcified nodule irregular margins measuring 1.0 x 0.6 cm axial image 62 just above the right hemidiaphragm. Additional calcified nodules,the largest in the superior segment of the left lower lobe measures 6.7 mm and corresponds to the abnormality on plain x-ray likely atelectasis PLEURA: No mass, effusion, or pneumothorax. VASCULATURE: No abnormality. LUIS: No mass or adenopathy. MEDIASTINUM: No mass or adenopathy. CARDIAC: No enlargement, pericardial thickening, or significant calcification. AORTA: No aneurysm or dissection. CHEST WALL: No mass or axillary adenopathy. BONES: No bone lesion or fracture. LIMITED ABDOMEN: No suspicious findings. Limited images of the upper abdomen. OTHER: Negative. CT/CT chest wo con IMPRESSION: 1 cm noncalcified right lower lobe pulmonary nodule. Consider PET/CT to evaluate metabolic status 6.7 mm calcified left lung nodule corresponding to the plain film findings Electronically authenticated by: ELDON LEACH Date: 03/06/2024 09:48
== END 2024-03-06 08:37 | disposition home or self-care (01) ==
LOC: CT 08:36
PROVIDERS: PCP Internal Medicine; Visit Provider Internal Medicine
DX: R91.1 Solitary pulmonary nodule (principal)
CPT/HCPCS: 71250

== ENCOUNTER 2024-05-21 14:42 | Outpatient (OUT) | payer MEDICARE, SELFPAY ==
--- OUTSIDE RECORDS SUMMARY | 2024-05-21 14:52 | XMS_ITS | CCD ---
Author Organization [facility] Inform ion [facility] Care Team Providers Care Global Expansion Sales Director Name Role Phone SADIA, MARIANELA Admitting Unavailable [...] Unavailable MISC, DR CAICEDO Primary Care Unavailable SHAIKH MORENO Attending Unavailable FAWWAD, Attending Unavailable PETITTIMARTIR Attending Unavailable SHAIKH MORENO Referring Unavailable FAWBRADEN, Attending Unavailable TAMIAJOYCE GUSMAN Attending Unavailable MOUKARBELRONDA Attending Unavailable SHAIKH MORENO Primary Care Physician Funmi RESENDIZ Attending Unavailable LIT BARILLAS Referring Unavailable Funmi RESENDIZ Attending Unavailable LIT BARILLAS Referring Unavailable Allergies Allergy Classification Reported Allergen(s) Allergy Type Date of Onset Reaction(s) Facility Opioid Agonists (1 source) oxyCODONE; Translations: [oxyCODONE] Drug Allergy [facility] Repository (1 source) oxyCODONE Drug Allergy 2 [facility] Repository (2 sources) oxyCODONE; Translations: [OXYCODONE] Drug Allergy 2 Dyspnea (finding), Weal (disorder) [facility] Repository Medications Current Medications Medication Drug Class(es) Dates Sig (Normalized) Sig (Original) amLODIPine 10 mg oral tablet (1 source) Dihydropyridine Calcium Channel Zach Start: 03-20-2024 take 1 tablet by mouth once daily amLODIPine 10 mg Tab 10 mg = 1 tab(s), Oral, Daily, Refills(s) 0 Start Date: 03/20/24 Status: Ordered aspirin 81 mg chewable tablet (1 source) Platelet Aggregation Inhibitor, Nonsteroidal Anti-inflammatory Drug Start: 03-20-2024 aspirin 81 mg Chew Tab 81 mg = 1 tab(s), Chewed, Daily, Refills(s) 0 Start Date: 03/20/24 Status: Ordered hydroCHLOROthiazide 12.5 mg / lisinopril 20 mg oral tablet (1 source) Thiazide Diuretic, Angiotensin Converting Enzyme Inhibitor Start: 03-20-2024 take 1 tablet by mouth twice daily hydrochlorothia zide-lisinopril 12.5 mg-20 mg Tab 1 tab(s), Oral, BID, Refill(s) 0 Start Date: 03/20/24 Status: Ordered 24 hr isosorbide mononitrate 60 mg extended release oral tablet (1 source) Nitrate Vasodilator Start: 03-20-2024 take 1 tablet by mouth once daily in the morning isosorbide mononitrate 60 mg ER Tab 60 mg = 1 tab(s), Oral, qAM, Refills(s) 0 Start Date: 03/20/24 Status: Ordered metFORMIN hydrochloride 850 mg oral tablet (1 source) Biguanide Start: 03-20-2024 take 1 tablet by mouth once daily in the morning metformin 850 mg Tab 850 mg = 1 tab(s), Oral, qAM, Refills(s) 0 Start Date: 03/20/24 Status: Ordered 24 hr metoprolol succinate 100 mg extended release oral tablet (1 source) beta-Adrenergic Zach Start: 03-20-2024 take 1 tablet by mouth once daily metoprolol 100 mg ER Tab 100 mg = 1 tab(s), Oral, Daily, Refills(s) 0 Start Date: 03/20/24 Status: Ordered omeprazole 20 mg delayed release oral capsule (1 source) Proton Pump Inhibitor Start: 03-20-2024 take 1 capsule by mouth once daily omeprazole 20 mg Cap-DR 20 mg = 1 cap(s), Oral, Daily, Refills(s) 0 Start Date: 03/20/24 Status: Ordered PARoxetine hydrochloride 40 mg oral tablet (1 source) Serotonin Reuptake Inhibitor Start: 03-20-2024 take 1 tablet by mouth once daily Paxil 40 mg Tab 40 mg = 1 tab(s), Oral, Daily, Refills(s) 0 Start Date: 03/20/24 Status: Ordered Problems Active Problems Problem Classification Problem Date Documented Date Episodic/Chronic Coronary atherosclerosis and other heart disease (7 sources) Atherosclerotic heart disease of [place] coronary artery without angina pectoris; Translations: [Coronary arteriosclerosis] Onset: 01-12-2022 Chronic Deficiency and other anemia (1 source) Anemia 03-20-2024 Episodic Diabetes mellitus without complication (1 source) Diabetes mellitus 03-20-2024 Chronic Disorders of lipid metabolism (3 sources) Mixed hyperlipidemia; Translations: [Dyslipidemia] Onset: 11-13-2020 Chronic Esophageal disorders (1 source) Gastroesophageal reflux disease Onset: 11-13-2020 03-20-2024 Chronic Essential hypertension (3 sources) Essential (primary) hypertension; Translations: [Benign essential hypertension] Onset: 07-20-2022 Chronic Mood disorders (1 source) Depressive disorder 03-20-2024 Chronic Other nutritional; endocrine; and metabolic disorders (1 source) Morbid obesity; Translations: [Morbid (severe) obesity due to excess calories] Onset: 04-16-2024 Chronic Other nutritional; endocrine; and metabolic disorders (1 source) Body mass index 40+ - severely obese 04-16-2024 Chronic Other nutritional; endocrine; and metabolic disorders (1 source) Obese class III 03-20-2024 Chronic Other screening for suspected conditions (not mental disorders or infectious disease) (1 source) Screening for malignant neoplasm of colon done; Translations: [Encounter for screening for malignant neoplasm of colon] Onset: 04-16-2024 Episodic Unclassified (1 source) Patient encounter status 04-16-2024 Past or Other Problems Problem Classification Problem Date Documented Da te Episodic/Chronic Diabetes mellitus without complication (1 source) Prediabetes; Translations: [PREDIABETES] Onset: 01-14-2022 Episodic Other lower respiratory disease (5 sources) Other forms of dyspnea; Translations: [OTHER FORMS OF DYSPNEA] Onset: 01-14-2022 Episodic Results Test Name Value Interpretation Reference Range Facility Insurance Correspondenceon 0 05-17-2024 Insurance Correspondence [id number]# 1.00TIFF [facility] Consent for Procedure/Surger yon 04-18-2024 Consent for Procedure/Surgery [id number]#1. 00TIFF Normal [facility] Facesheeton 04-17-2024 Facesheet [id number]# 1.00TIFF [facility] Ambulatory Visit Summaryon 0 04-16-2024 Ambulatory Visit Summary NORI FUNMI Burnett :1955 Visit Date:04/16/2024 Ambulatory Visit Instructions Your Diagnosis Screening for malignant neoplasm of colon Class 3 obesity Your Care Team Attending Physician - DEANNA PARISH, Funmi Santos Primary Care Physician - TIFFANIE PARISH, Referring Physician - LIT BARILLAS MD This Is Your Medications List Contact prescribing physician if questions or concerns amlodipine (amLODIPine 10 mg Tab) aspirin (aspirin 81 mg Chew Tab) hydrochlorothiazide-l isinopril (hydrochlorothiazide- lisinopril 12.5 mg-20 mg Tab) isosorbide mononitrate (isosorbide mononitrate 60 mg ER Tab) metformin (metformin 850 mg Tab) metoprolol (metoprolol 100 mg ER Tab) omeprazole (omeprazole 20 mg Cap-DR) paroxetine (Paxil 40 mg Tab) Procedures Performed Colonoscopy (04/08/2014), Cardiac catheterization, Repair of umbilical hernia, Tonsillectomy and adenoidectomy. Discharge Vitals Heart Rate (Peripheral) 76 Respiratory Rate 16 Blood Pressure 140/92 Height 181.6 cm Height 71 in Weight 139 kg Weight 305.8 lb BMI 42.15 Medications What How Much When Instructions Unchanged amlodipine (amLODIPine 10 mg Tab) 1 Tablets By Mouth Every day Contact prescribing physician if questions or concerns Unchanged aspirin (aspirin 81 mg Chew Tab) 1 Tablets Chewed Every day Contact prescribing physician if questions or concerns Unchanged hydrochlorothiazide-l isinopril (hydrochlorothiazide- lisinopril 12.5 mg-20 mg Tab) 1 Tablets By Mouth 2 times a day Contact prescribing physician if questions or concerns Unchanged isosorbide mononitrate (isosorbide mononitrate 60 mg ER Tab) 1 Tablets By Mouth Once a day (in the morning) Contact prescribing physician if questions or concerns Unchanged metformin (metformin 850 mg Tab) 1 Tablets By Mouth Once a day (in the morning) Contact prescribing physician if questions or concerns Unchanged metoprolol (metoprolol 100 mg ER Tab) 1 Tablets By Mouth Every day Contact prescribing physician if questions or concerns Unchanged omeprazole (omeprazole 20 mg Cap-DR) 1 Capsules By Mouth Every day Contact prescribing physician if questions or concerns Unchanged paroxetine (Paxil 40 mg Tab) 1 Tablets By Mouth Every day Contact prescribing physician if questions or concerns Allergies oxyCODONE (SOB - Shortness of breath, Hives) Problems Ongoing - Any problem that you are currently receiving treatment for. Anemia Benign essential hypertension BMI 40.0-44.9, adult Class 3 obesity Coronary arteriosclerosis Depressive disorder Diabetes Dyslipidemia Gastroesophageal reflux disease Screening for malignant neoplasm of colon Patient Survey You may receive a survey via text or e-mail asking about your office visit. Please share your experience with us by completing your survey. We appreciate your feedback and thank you for choosing us for your care. Normal [facility] Office Visiton 03-22-2024 Follow-up visit [id number] Funmi Julio 1955 M Date Provider Department Center 03/22/2024 Walker-RONDA THIBODEAUX EVIE Flores Family History Problem Relation Age of Onset Hypertension Brother Heart attack Other Family Status - Relation Status Age at Brother Other Level of Service:31019 HI OFFICE/OUTPATIENT ESTABLISHED LOW MDM 20 MIN Reason for Visit and Comments: Follow-up [236709] - 6 month Normal [facility] Reminderson 03-15-2024 Reminders - From: Tracy Walls LPN To: N - Clinical; Sent: 07/27/2023 08:16:44 EDT Show up: 03/09/2024 07:00:00 EDT Subject: colonoscopy recall Due Date/Time: 04/08/2024 07:00:00 EDT Reminder/Recall Patient due for screening colonoscopy 03/2024. Left voice mail message to call to schedule consultation. Left voice mail message to call to schedule consultation. future appointmentFuture Appointments SELENA Hidalgo. Date: 04/02/2024 2:20 PM Scheduled Provider: Deanna PARISH, Funmi Jenkins, [address] [facility] [address] [place], [address] Normal [facility] 36on 09-15-2023 36 BP looks better. Continue all his current BP medications. Recommend he continues to monitor his BP a couple times a week and let us know if consistently runs elevated. Plan to follow-up in 6 months as planned or sooner if needed. Thanks! Normal [facility] Office Visiton 08-31-2023 Follow-up visit [id number] Funmi Julio 1955 M Date Provider Department Center 08/31/2023 JOYCE RICKETTS Family History Problem Relation Age of Onset Hypertension Brother Heart attack Other Family Status - Relation Status Age at Brother Other Level of Service:28433 [place] OFFICE/OUTPATIENT ESTABLISHED LOW [facility] 20-29 MIN Reason for Visit and Comments: Coronary Artery Disease [187] Hypertension [426944] Hyperlipidemia [182] Normal [facility] Physician Referralon 023 Physician Referral [id number] .00CD:127 Normal [facility] CARDIAC STRESS TESTon 2021 CARDIAC [...] interpreted and reported in a separate dictation. [facility] Signed and Approved by: DR PADDY STANFORD 02/01/2022 09:17:00 Normal [facility] NM STRESS/REST MULTIon 01-25 NM STRESS/REST MULTI Patient: FUNMI JULIO Exam Date: 01/25/2022 : 1955 Gender:M Ordering : MARIANELA MCCULLOUGH Admission #: [id number] Family : Order #: [id number] CLICK HERE TO VIEW EXAM RADIOLOGY REPORT [...] Irvin M.D. on 01/26/2022 at 11:49 Normal [facility] BNPon 01-12-2022 NT PRO BNP <11.1 Normal <=900.0 [facility] Comment on above: Performed By: #### B PROCESSING REP, CMP, LIPID, CRP #### [facility] [address] [place] [address] Dr. Ramesh Min CBC AUTO DIFFon 01-12-2022 BASO # 0.1 103/ul Normal 0.0-0.1 [facility] Comment on above: Performed By: #### C BC #### [facility] [address] [place] [address] Dr. Ramesh Min Basophils/100 WBC (Bld) 0.5 % Normal 0.2-2.0 [facility] Comment on above: Performed By: #### C BC #### [facility] [address] [place] [address] Dr. Ramesh Min EO # 0.2 103/ul Normal 0.0-0.7 [facility] Comment on above: Performed By: #### C BC #### [facility] [address] [place] [address] Dr. Ramesh Min Eosinophils/100 WBC (Bld) 2.0 % Normal 0.9-7.0 [facility] Comment on above: Performed By: #### C BC #### [facility] [address] [place] [address] Dr. Ramesh Min Erythrocyte distribution width (RBC) [Ratio] 13.1 % Normal 11.0-15.0 [facility] Comment on above: Performed By: #### C BC #### [facility] [address] [place] [address] Dr. Ramesh Min Hematocrit (Bld) [Volume fraction] 44.2 % Normal 42.0-54.[address] [facility] Comment on above: Performed By: #### C BC #### [facility] [address] [place] [address] Dr. Ramesh Min Hemoglobin (Bld) [Mass/Vol] 14.8 g/dL Normal 14.0-18.0 [facility] Comment on above: Performed By: #### C BC #### [facility] [address] [place] [address] Dr. Ramesh Min IG # 0.05 10e3/ul Critically high 0.00-0.03 [facility] Comment on above: Performed By: #### C BC #### [facility] [address] [place] [address] Dr. Ramesh Min IG % 0.5 % Normal 0.0-0.5 [facility] Comment on above: Performed By: #### C BC #### [facility] [address] [place] [address] Dr. Ramesh Min LYMPH # 2.4 103/ul Normal 1.2-3.8 [facility] Comment on above: Performed By: #### C BC #### [facility] [address] [place] [address] Dr. Ramesh Min Lymphocytes/100 WBC (Bld) 25.0 % Normal 20.5-60.0 [facility] Comment on above: Performed By: #### C BC #### [facility] [address] [place] [address] Dr. Ramesh Min MANUAL DIFF REQ NO Normal [facility] Comment on above: Performed By: #### C BC #### [facility] [address] [place] [address] Dr. Ramesh Min MCH (RBC) [Entitic mass] 30.5 pg Normal 25.9-34.0 [facility] Comment on above: Performed By: #### C BC #### [facility] [address] [place] [address] Dr. Ramesh Min MCHC (RBC) [Mass/Vol] 33.5 g/dL Normal 29.9-35.2 [facility] Comment on above: Performed By: #### C BC #### [facility] [address] [place] [address] Dr. Ramesh Min MCV (RBC) [Entitic vol] 91.1 fL Normal 80.0-94.0 [facility] Comment on above: Performed By: #### C BC #### [facility] [address] [place] [address] Dr. Ramesh Min MONO # 0.8 103/ul Normal 0.3-0.8 [facility] Comment on above: Performed By: #### C BC #### [facility] [address] [place] [address] Dr. Ramesh Min Monocytes/100 WBC (Bld) 8.8 % Normal 1.7-12.0 [facility] Comment on above: Performed By: #### C BC #### [facility] [address] [place] [address] Dr. Ramesh Min NEUT # 6.1 103/ul Normal 1.4-6.5 [facility] Comment on above: Performed By: #### C BC #### [facility] [address] [place] [address] Dr. Ramesh Min Neutrophils/100 WBC (Bld) 63.2 % Normal 43.0-75.0 [facility] Comment on above: Performed By: #### C BC #### [facility] [address] [place] [address] Dr. Ramesh Min Platelet mean volume (Bld) [Entitic vol] 8.7 fL Critically low 9.5-13.5 [facility] Comment on above: Performed By: #### C BC #### [facility] [address] [place] [address] Dr. Ramesh Min PLT 330 103/ul Normal 150-[address] [facility] Comment on above: Performed By: #### C BC #### [facility] [address] [place] [address] Dr. Ramesh Min RBC 4.85 106/ul Normal 4.70-6.[address] [facility] Comment on above: Performed By: #### C BC #### [facility] [address] [place] [address] Dr. Ramesh Min WBC 9.6 103/ul Normal 4.0-11.[address] [facility] Comment on above: Performed By: #### C BC #### [facility] [address] [place] [address] Dr. Ramesh Min CRPon 01-12-2022 CRP 0.7 mg/dL Normal <=1.0 [facility] Comment on above: Performed By: #### B PROCESSING REP, CMP, LIPID, CRP #### [facility] [address] [address] [address] Ramesh Min ECHOCARDIO M/2D COMPLETEon 0 01-12-2022 ECHOCARDIO M/2D COMPLETE Patient: FUNMI JULIO Exam Date: 01/12/2022 : 1955 Gender:M Ordering : MARIANELA MCCULLOUGH Admission #: [id number] Family : Order #: [id number] CLICK HERE TO VIEW EXAM ECHOCARDIOGRAM REPORT [...] Thibodeaux M.D. on 01/13/2022 at 08:51 Normal [facility] GLYCOHEMOGLOBIN A1Con 2021 ADA RECOMMENDATION ADA THERAPEUTIC TARGET 6.0 - 7.0 ACTION SUGGESTED > 7.0 Normal [facility] Comment on above: Performed By: #### A 1C #### [facility] [address] [place] [address] Dr. Ramesh Min Glucose [Mass/Vol] 137 mg/dL Normal [facility] Comment on above: Performed By: #### A 1C #### [facility] [address] [address] [address] Ramesh Min HbA1c (Bld) [Mass fraction] 6.4 % Critically high <=6.0 [facility] Comment on above: Performed By: #### A 1C #### [facility] [address] [place] [address] Dr. Ramesh Min LIPID PROFILEon 01-12-2022 CHOL-HDL RATIO NORM SEE BELOW Normal [facility] Comment on above: Result Comment: 3.3 - 4.4 LOW RISK 4.4 - 7.1 AVERAGE RISK 7.1 - 11.0 MODERATE RISK >11.0 HIGH RISK Performed By: #### B PROCESSING REP, CMP, LIPID, CRP #### [facility] [address] [address] [address] Ramesh Min Cholesterol [Mass/Vol] 125 mg/dL Normal <=200 [facility] Comment on above: Performed By: #### B PROCESSING REP, CMP, LIPID, CRP #### [facility] [address] [address] [address] Ramesh Min Cholesterol in HDL [Mass/Vol] 39 mg/dL Normal [facility] Comment on above: Performed By: #### B PROCESSING REP, CMP, LIPID, CRP #### [facility] [address] [address] [address] Ramesh Min Cholesterol in LDL [Mass/Vol] 69.2 mg/dL Normal [facility] Comment on above: Performed By: #### B PROCESSING REP, CMP, LIPID, CRP #### [facility] [address] [address] [address] Ramesh Min Cholesterol.total/Cho lesterol in HDL [Mass ratio] 3.2 {ratio} Normal [facility] Comment on above: Performed By: #### B PROCESSING REP, CMP, LIPID, CRP #### [facility] [address] [address] [address] Ramesh Min HDL NORMAL > or = 60 mg/dl - LO W CARDIOVASCULAR RISK <40 mg/dl - HIGH CARDIOVASCULAR RISK Normal [facility] Comment on above: Performed By: #### B PROCESSING REP, CMP, LIPID, CRP #### [facility] [address] [address] [address] Ramesh Min LDL CALC NORMAL SEE BELOW Normal [facility] Comment on above: Result Comment: <100 mg/dl OPTIMAL 100 - 129 mg/dl NEAR OR ABOVE OPTIMAL 130 - 159 mg/dl BORDERLINE HIGH 160 - 189 mg/dl HIGH >190 mg/dl VERY HIGH Performed By: #### B PROCESSING REP, CMP, LIPID, CRP #### [facility] [address] [address] [address] Ramesh Min Triglyceride [Mass/Vol] 84 mg/dL Normal <=150 [facility] Comment on above: Performed By: #### B PROCESSING REP, CMP, LIPID, CRP #### [facility] [address] [address] [address] Ramesh Min VLDL CALC 16.8 mg/dL Normal [facility] Comment on above: Performed By: #### B PROCESSING REP, CMP, LIPID, CRP #### [facility] [address] [address] [address] Ramesh Min PROF 14(COMP METB)on 022 Albumin [Mass/Vol] 3.7 g/dL Normal 3.5-5.0 [facility] Comment on above: Performed By: #### B PROCESSING REP, CMP, LIPID, CRP #### [facility] [address] [address] [address] Ramesh Min Albumin/Globulin [Mass ratio] 0.9 {ratio} Normal [facility] Comment on above: Performed By: #### B PROCESSING REP, CMP, LIPID, CRP #### [facility] [address] [place] [address] Dr. Ramesh Min ALP [Catalytic activity/Vol] 75 U/L Normal 38-126 [facility] Comment on above: Performed By: #### B PROCESSING REP, CMP, LIPID, CRP #### [facility] [address] [place] [address] Dr. Ramesh Min ALT [Catalytic activity/Vol] 33 U/L Normal 21-72 [facility] Comment on above: Performed By: #### B PROCESSING REP, CMP, LIPID, CRP #### [facility] [address] [place] [address] Dr. Ramesh Min Anion gap [Moles/Vol] 10.8 mmol/L Normal [facility] Comment on above: Performed By: #### B PROCESSING REP, CMP, LIPID, CRP #### [facility] [address] [place] [address] Dr. Ramesh Min AST [Catalytic activity/Vol] 15 U/L Critically low 17-59 [facility] Comment on above: Performed By: #### B PROCESSING REP, CMP, LIPID, CRP #### [facility] [address] [place] [address] Dr. Ramesh Min Bilirubin [Mass/Vol] 0.3 mg/dL Normal 0.2-1.3 [facility] Comment on above: Performed By: #### B PROCESSING REP, CMP, LIPID, CRP #### [facility] [address] [place] [address] Dr. Ramesh Min Calcium [Mass/Vol] 9.5 mg/dL Normal 8.4-10.2 [facility] Comment on above: Performed By: #### B PROCESSING REP, CMP, LIPID, CRP #### [facility] [address] [place], [place] [id number] Dr. Ramesh Min Chloride [Moles/Vol] 103 mmol/L Normal 98-[address] [facility] Comment on above: Performed By: #### B PROCESSING REP, CMP, LIPID, CRP #### [facility] [address] [place] [address] Dr. Ramesh Min CO2 [Moles/Vol] 28.4 mmol/L Normal 22.0-30.0 [facility] Comment on above: Performed By: #### B PROCESSING REP, CMP, LIPID, CRP #### [facility] [address] [place] [address] Dr. Ramesh Min Creatinine [Mass/Vol] 0.92 mg/dL Normal 0.66-1.25 [facility] Comment on above: Performed By: #### B PROCESSING REP, CMP, LIPID, CRP #### [facility] [address] [place] [address] Dr. Ramesh Min EGFR-AF STATELESS >60 Normal >=60 [facility] Comment on above: Performed By: #### B PROCESSING REP, CMP, LIPID, CRP #### [facility] [address] [place] [address] Dr. Ramesh Min EGFR-NON AF STATELESS >60 Normal >=60 [facility] Comment on above: Performed By: #### B PROCESSING REP, CMP, LIPID, CRP #### [facility] [address] [place] [address] Dr. Ramesh Min Globulin (S) [Mass/Vol] 4.1 g/dL Normal [facility] Comment on above: Performed By: #### B PROCESSING REP, CMP, LIPID, CRP #### [facility] [address] [place] [address] Dr. Ramesh Min Glucose [Mass/Vol] 104 mg/dL Normal 74-106 [facility] Comment on above: Performed By: #### B PROCESSING REP, CMP, LIPID, CRP #### [facility] [address] [place] [address] Dr. Ramesh Min Potassium [Moles/Vol] 4.2 mmol/L Normal 3.4-5.0 [facility] Comment on above: Performed By: #### B PROCESSING REP, CMP, LIPID, CRP #### [facility] [address] [address] [address] Ramesh Min Protein [Mass/Vol] 7.8 g/dL Normal 6.1-8.2 [facility] Comment on above: Performed By: #### B PROCESSING REP, CMP, LIPID, CRP #### [facility] [address] [place] [address] Dr. Ramesh Min Sodium [Moles/Vol] 138 mmol/L Normal 137-145 [facility] Comment on above: Performed By: #### B PROCESSING REP, CMP, LIPID, CRP #### [facility] [address] [place] [id number] Dr[address] Ramesh Min Urea nitrogen [Mass/Vol] 18.0 mg/dL Normal 9.0-20.0 [facility] Comment on above: Performed By: #### B PROCESSING REP, CMP, LIPID, CRP #### [facility] [address] [place] [address] Dr. Ramesh Min Urea nitrogen/Creatinine [Mass ratio] 19.6 mg/mg Normal [facility] Comment on above: Performed By: #### B PROCESSING REP, CMP, LIPID, CRP #### [facility] [address] [place] [address] Dr. Ramesh Min SED RATE [facility] 2021 SED RATE 20 mm/hr Normal <=20 [facility] Comment on above: Performed By: #### S EDR #### [facility] [address] [place] [address] Dr. Ramesh Min Vital Signs Date Time Vital Sign Value Performing Clinician Faci lity 04-16-2024 15:18-0400 Blood Pressure Location Funmi RESENDIZ [facility] 04-16-2024 15:18-0400 Diastolic blood pressure 92 mm[Hg] Funmi RESENDIZ [facility] 04-16-2024 15:18-0400 Heart rate 76 /min Funim RESENDIZ [facility] 04-16-2024 15:18-0400 Respiratory rate 16 /min Funmi NILL [facility] 04-16-2024 15:18-0400 Systolic blood pressure 140 mm[Hg] Funmi NILL [facility] Encounters Encounter Date Encounter Type Care Provider Facility Start: 04-16-2024 End: 04-16-2024 ambulatory Funmi R NILL Facility:[facility] Start: 04-16-2024 End: 04-16-2024 Patient encounter procedure Funmi R NILL [facility] Start: 03-22-2024 End: 03-22-[address] [facility] Start: 03-14-2024 End: 03-14-2024 ambulatory MARTIR DURHAM Not Available Start: 02-21-2024 End: 02-21-2024 ambulatory MERCEDES FAWWAD Not Available Start: 01-25-2024 End: 01-25-2024 ambulatory MERCEDES FAWWAD Not Available Start: 11-16-2023 End: 11-16-2023 ambulatory MERCEDES FAWWAD Not Available Start: 08-31-2023 End: 08-31-2023 ambulatory JOYCE [facility] Start: 08-04-2023 ambulatory Funmi R NILL Facility :[facility] Start: 07-21-2023 ambulatory Funmi NILL Facility:[facility] Start: 07-03-2022 ambulatory MARIANELA SADIA Facility:[facility] Start: 01-26-2022 ambulatory MARIANELA SADIA Facility:[facility] Start: 01-25-2022 End: 01-26-2022 ambulatory MARIANELA SADIA Facility:[facility] Start: 01-12-2022 End: 01-13-2022 ambulatory MARIANELA SADIA Facility:[facility] Procedures Date Procedure Procedure Detail Performing Clinician Start: 04-08-2014 Colonoscopy Funmi NI LL Cardiac catheterization Isma ael NILL Repair of umbilical hernia Adonay RESENDIZ Tonsillectomy and adenoidectomy Funmi RESENDIZ Immunizations Immunization Date Immunization Notes Care Provider Janeth herrera 09-28-2023 influenza virus vaccine, unspecified formulation Funmi RESENDIZ [facility] 10-23-2021 SARS-CoV-2 (COVID-19 ) mRNA-1273 vaccine Funmi VICTORL [facility] 03-06-2021 SARS-CoV-2 (COVID-19 ) mRNA-1273 vaccine Funmi VICTORL [facility] 02-06-2021 SARS-CoV-2 (COVID-19 ) mRNA-1273 vaccine Funmi RESENDIZ [facility] Payers Date Payer Category Payer Medicare [id number] 1957 Private Health Insurance [facility] [id number] 1959 Private Health Insurance [facility] [id number] 1957 Self-pay 1955 Unknown [id number] 2.16.84 [id number] 1957 Unknown [id number] 2.16.84 [id number] 1957 Unknown [id number] 2.16.84 [id number] 1957 Unknown [id number] 2.16.84 [id number] 1957 Unknown [id number] 2.16.84 [id number] 1957 Unknown [id number] 2.16.84 [id number] 1957 Unknown [id number] 2.16.84 [id number] 1957 Unknown [id number] 2.16.840 .[id number] 1957 Unknown [id number] 2.16.8 [id number] 1957 Unknown [id number] 2.16.8 [id number] Social History Date Type Detail Facility Start: 04-16-2024 Tobacco smoking status Ex-smoker (fi nding) [facility] Tobacco smoking status Smokeless tobacco user within last 30 days [facility] Sex Assigned At Male [facility] Functional Status Date Assessment Result Facility 04-16-2024 Functional Status N/A [facility] Clinical Note 04-16-2024 Note Date & Type Note Facility 04-16-2024 Note Chief Complaint consultation for colonoscopy HPI Staff 68 year old male presents on consultation from Dr. Barillas for screening colonoscopy. Denies abdominal or rectal pain. No rectal bleeding or change in bowel habits, . Denies nausea or vomiting. No unexplained weight loss. Last colonoscopy completed 03/2014-normal. No known family history of colon cancer. History of Present Illness 68 yo male with h/o CAD, DMII, htn, GERD, depression; referred for colorectal screening; denies change in bms or blood in stools; no abdominal complaints; denies asa or NSAID use, no SBE prophylaxis; abdominal operations significant for umbilical hernia repair, last colonoscopy 2013 with internal hemorrhoids; no fmhx of GI malignancy, sister with h/o Crohn's disease; no tobacco use. Review of Systems PHQ Score Initial Depression Screen Score: 0 SCORE ROS - Provider Constitutional: no fever, no sweats, no weight loss. Eyes: no glasses, no blurred vision, no visual loss. ENMT: no dentures, no hoarseness, no swallowing difficulties, no hearing loss, no ear infection(s), no nose bleeds. Cardiovascular: normal blood pressure, no chest pain, regular heartbeat, no heart murmur. Respiratory: no shortness of breath, no cough, no asthma, no wheezing. Gastrointestinal: no nausea, no vomiting, no diarrhea, no constipation, no blood in stool, no change in bowel habits, no abdominal pain, no hepatitis. Genitourinary: no kidney stones, no urine infection, no dysuria. Musculoskeletal: no pain, no weakness. Skin: no changing moles, no rash, no skin lumps. Neurologic: no seizures, no epilepsy, no headache. Psychiatric: no emotional or psychiatric problem. Heme/Lymph: no bleeding problems, no anemia, no blood clots, no transfusions. Allergy/Immunologic: no swollen lymph nodes/glands, no IV drug abuse. Other: Additional ROS info: Except as noted in the above Review of Systems and in the History of Present Illness, all other systems have been reviewed and are negative or noncontributory. Physical Exam Vitals & Measurements HR: 76(Peripheral) RR: 16 BP: 140/92 HT: 71 in HT: 181.6 cm WT: 139 kg WT: 305.8 lb BMI: 42.15 HEENT: normal conjunctiva, sclera clear, no scleral icterus, EOM intact, PERRLA, oral mucosa moist without lesions. Neck: trachea midline, no mass, symmetric, no thyromegaly or nodules, no adenopathy Respiratory: lungs CTA, respirations non labored. Cardiovascular: regular rate and rhythm, no murmur, no pedal edema or varicosities. Gastrointestinal: soft, non distended, no tenderness, no masses, no palpable hernias, diastasis recti no, no hepatosplenomegaly; normal bs Lymphatic: no cervical adenopathy, no supraclavicular adenopathy. Musculoskeletal: normal gait, digits and nails without infection, nodes, cyanosis, clubbing. Skin: no rashes, no lesions, no ulcers, no subcutaneous nodules, induration. Psychiatric/Neuro: oriented to time, place, person, judgement normal, affect appropriate for age, insight intact, no focal deficits. Tests: review of old records completed , Discussed surgical options, risks, and possible complications with patient. Assessment/Plan 1. Screening for malignant neoplasm of colon (Z12.11: Encounter for screening for malignant neoplasm of colon) plan colonoscopy under anesthesia, informed consent obtained. 2. Class 3 obesity (E66.01: Morbid (severe) obesity due to excess calories) recommend diet and exercise. Follow-up No qualifying data available Problem List/Past Medical History Ongoing Anemia Benign essential hypertension BMI 40.0-44.9, adult Class 3 obesity Coronary arteriosclerosis Depressive disorder Diabetes Dyslipidemia Gastroesophageal reflux disease Screening for malignant neoplasm of colon Historical No qualifying data Procedure/Surgical History Colonoscopy (04/08/2014), Cardiac catheterization, Repair of umbilical hernia, Tonsillectomy and adenoidectomy. Medications amLODIPine 10 mg Tab, 10 mg= 1 tab(s), Oral, Daily aspirin 81 mg Chew Tab, 81 mg= 1 tab(s), Chewed, Daily hydrochlorothiazide-lisinopril 12.5 mg-20 mg Tab, 1 tab(s), Oral, BID isosorbide mononitrate 60 mg ER Tab, 60 mg= 1 tab(s), Oral, qAM metformin 850 mg Tab, 850 mg= 1 tab(s), Oral, qAM metoprolol 100 mg ER Tab, 100 mg= 1 tab(s), Oral, Daily omeprazole 20 mg Cap-DR, 20 mg= 1 cap(s), Oral, Daily Paxil 40 mg Tab, 40 mg= 1 tab(s), Oral, Daily Allergies oxyCODONE (SOB - Shortness of breath, Hives) Social History Alcohol Current, Beer, Daily, 04/16/2024 Substance Abuse - Denies Substance Abuse, 04/16/2024 Tobacco Former smoker, quit more than 30 days ago Tobacco Use:. Smokeless tobacco user within last 30 days Smokeless Tobacco Use:. Cigarettes, Oral, 1 per day. Started age 20.0 Years. Yes, 04/16/2024 Family History Cardiac arrhythmia: Brother. Crohn's disease: Sister. Diabetes mellitus type 2: Mother. Heart disease: Brother. Hypertension: Sister and Brother. Primary oscar (more content not included)... [facility] Comment on above: Result Comment: Elec tronically Signed By: DEANNA PARISH, Funmi Suazo\Date and Time Signed: 04/16/24 16:19 EDT Progress note 03-22-2024 Note Date & Type Note Facility 03-22-2024 Note [place] [facility] - [facility] Subjective Amol Riehl is a 68 y.o. year old male patient being seen for Follow-up (6 month) Patient Active Problem List Diagnosis Acute sinusitis Anemia Benign essential hypertension Coronary arteriosclerosis Cough Depressive disorder Hyperlipidemia Hypertensive disorder Impaired fasting glucose Neck sprain Pain in joint involving ankle and foot Precordial pain Solitary pulmonary nodule Chronic GERD Constipation Dyslipidemia Obesity (BMI 30-39.9) Rectal bleeding Sleep apnea Type 2 diabetes mellitus without complication, without long-term current use of insulin ([facility]) Family History Problem Relation Name Age of Onset Hypertension Brother Heart attack Other Social History Tobacco Use Smoking status: Never Smokeless tobacco: Current Types: Chew Substance Use Topics Alcohol use: Yes Comment: MODERATE Drug use: Never HPI Funmi Julio is seen in follow up. He is a 68 yo man with prior history of hypertension and minimal CAD by cath in 2014 [His stress test showed inferior and inferoapical ischemia. He was referred for cardiac catheterization on 10/29/2015. This showed Minimal coronary artery disease with sluggish flow throughout the coronary arterial tree. He was recommended aspirin and statin therapy and risk factor control]. Follow-up cardiac testing including stress test and echocardiogram in December and January 2022 was within normal limits. At most recent visit in cardiology on 08/31/2023 his blood pressure was elevated. At that time he had ran out of Patronpath and this was refilled. His blood pressure has been controlled. Recently his PCP increased lisinopril hydrochlorothiazide back to twice daily due to leg swelling and the leg swelling improved. He has been well with no chest pain and no shortness of breath. He has no palpitations. He has good exercise tolerance. No cardiac complaints. Previously had a CT scan of the chest to follow-up on pulmonary nodule. he recently underwent a follow-up CT scan on 03/06/2024. This is followed by his primary care physician. He mentions today that they are referring him to a product marketing executive for follow-up. Review of Systems Cardiovascular: Positive for leg swelling. Negative for chest pain, claudication, cyanosis, dyspnea on exertion, irregular heartbeat, near-syncope, orthopnea, palpitations, paroxysmal nocturnal dyspnea and syncope. Objective Visit Vitals BP 118/80 (BP Location: Left arm, Patient Position: Sitting, BP Cuff Size: Large adult) Pulse 76 Resp 16 Ht 1.829 m (6') Wt 136 kg (299 lb 9.6 oz) SpO2 93% BMI 40.63 kg/m??? Smoking Status Never BSA 2.63 m??? Physical Exam Constitutional: Appearance: He is well-developed. He is obese. He is not ill-appearing. HENT: Head: Normocephalic and atraumatic. Nose: Nose normal. Eyes: General: No scleral icterus. Pupils: Pupils are equal, round, and reactive to light. Neck: Thyroid: No thyromegaly. Vascular: No JVD. Cardiovascular: Rate and Rhythm: Normal rate and regular rhythm. Pulses: Radial pulses are 2+ on the right side and 2+ on the left side. Heart sounds: Normal heart sounds. No murmur [...] Take 1 tablet by mouth in the morni (more content not included)... [facility] Progress note 08-31-2023 Note Date & [...] All other systems reviewed and are negative. [facility] Progress note 08-31-2023 Note Date & Type Note Facility 08-31-2023 Note Cardiovascular Medic [facility] SUBJECTIVE Chief Complaint Patient presents [...] complication, without long-term current use of insulin ([facility]) Past Medical History: Diagnosis Date Coronary artery disease Diabetes mellitus ([facility]) Hyperlipidemia Hypertension Sleep apnea Family History Problem [...] Echocardiogram from 01/12/2022 (more content not included)... [facility] Evaluation + Plan note Note Date & Type Note Facility Evaluation + Plan note No data available for this section [facility] Hospital Discharge instructions Note Date & Type Note Facility Hospital Discharge instructions No data available for this section [facility] Progress note Note Date & Type Note Facility Progress note No data available for this section [facility] Summary Purpose Family History No Family History Records FoundNo Family History Records FoundNo Family History Records Found No data available for this section No Family History Records Found Advance Directives No Advanced Directives Records FoundNo Advanced Directives Records FoundNo Advanced Directives Records FoundNo Advanced Directives Records Found Additional Source Comments (unrecognized sect ion and content) No Status Records FoundNo Status Records FoundNo Status Records FoundNo Status Records Found INFORMATION SOURCE (unrecogn ized section and content) DATE CREATED AUTHOR 07/03/2022 [facility] DATE CREATED AUTHOR AUTHOR'S ORGANIZ ATION 03/15/2024 [facility] EPIC DATE CREATED AUTHOR AUTHOR'S ORGANIZ ATION 03/24/2024 [facility] DATE CREATED AUTHOR AUTHOR'S ORGANIZ ATION 05/19/2024 [facility] Patient Care team informatio n (unrecognized section and content) Personnel Name: SHAIK MORENO MDH Address: Address: [address] [place] [id number] FOR RECORDS PERTAINING TO PATIENTS WHO ARE [...] BE BASED ON THE PRIMARY CLINICAL RECORDS. [facility]. provides no warranty or guarantee of the accuracy or completeness of information in this document.
== END 2024-05-21 14:43 | disposition home or self-care (01) ==
LOC: PST 14:42
PROVIDERS: PCP Internal Medicine; Visit Provider Surgery
DX: Z01.818 Encounter for other preprocedural examination (principal); Z12.11 Encounter for screening for malignant neoplasm of colon

== ENCOUNTER 2024-05-29 06:38 | Day surgery (SDC) | payer MEDICARE, SELFPAY ==
--- NOTE | 2024-05-29 | OP_ITS ---
OPERATION DATE: 05/29/2024 PREOPERATIVE DIAGNOSIS: Colorectal screening. POSTOPERATIVE DIAGNOSIS: Redundant colon. PROCEDURE: Colonoscopy to cecum. SURGEON: Jayson Huerta M.D. ANESTHESIA: Monitored anesthesia care. ESTIMATED BLOOD LOSS: Zero. INDICATIONS AND CONSENT: Patient is a 68-year-old male presents for colorectal screening. Indications, risks, benefits, alternatives of proceeding with colonoscopy were explained extensively to the patient, including the risks of bleeding, colon perforation or anesthetic complications. All of his questions were answered. Informed consent was obtained. PROCEDURE: Patient brought to the operating room, placed in the left lateral decubitus position. Monitored anesthesia care was provided. Rectal exam was performed which showed no masses or blood. The scope was inserted into the anal canal. Under direct visualization was advanced. With the aid of abdominal compression and positional changes, it was advanced to the cecum where cecal markings were clearly identified. Upon withdrawal of the scope, mucosal surfaces were carefully examined. There was noted to be a fair prep with some liquid brown stool throughout the colon that was partially irrigated clear. There were no mass lesions or polyps. No inflammatory changes or ulcerations. No significant diverticulosis. There was noted to be a redundant colon. The scope was retroflexed in the anal canal. There was no significant hemorrhoidal disease. Scope was then withdrawn. Patient tolerated procedure well, was sent to recovery room in good condition.f/u screening colonoscopy should be in 10 years if patient remains in good health. CC: Dr. Kristina OATES
--- OUTSIDE RECORDS SUMMARY | 2024-05-29 06:42 | XMS_ITS ---
Patient Summarization (C-CDA 2.1 CCD) Created on: May 29, 2024 FUNMI JULIO : 1955 Sex: Male Author Organization Sample organization Care Team Providers Care Handtools Repairer Name Role Phone SADIA, MARIANELA Admitting Unavailable [...] Unavailable MISC, DR CAICEDO Primary Care Unavailable JOYCE CANTRELL Attending Unavailable MOUKARBELRONDA Attending Unavailable SHAIKH MORENO Primary Care Physician [phone] Funmi HUERTA Attending Unavailable NADLIT MUÑIZ Referring Unavailable NILLFunmi Attending Unavailable LIT BARILLAS Referring Unavailable FAWSHAIKH FELICIANO Attending Unavailable FAWSHAIKH FELICIANO Attending Unavailable FAWBRADEN, Attending Unavailable MARTIR DURHAM Attending Unavailable FAWBRADEN, Referring Unavailable FAWBRADEN, Attending Unavailable Allergies Allergy Classification Reported Allergen(s) Allergy Type Date of Onset Reaction(s) Facility Opioid Agonists (1 source) oxyCODONE; Translations: [oxyCODONE] Drug Allergy [facility] Repository (1 source) oxyCODONE Drug Allergy 2 [facility] Repository (2 sources) oxyCODONE; Translations: [OXYCODONE] Drug Allergy 2 Dyspnea (finding), Weal (disorder) [facility] Repository Encounters Encounter Date Encounter Type Care Provider Facility Start: 05-23-2024 End: 05-23-2024 ambulatory SHAIKH TIFFANIE Not Available Start: 04-16-2024 End: 04-16-2024 ambulatory Funmi HUERTA Facility:[facility] Start: 04-16-2024 End: 04-16-2024 Patient encounter procedure Funmi HUERTA [facility] Start: 03-22-2024 End: 03-22-2024 ambulatory [facility] Start: 03-14-2024 End: 03-14-2024 ambulatory MARTIR DURHAM Not Available Start: 02-21-2024 End: 02-21-2024 ambulatory SHAIKH TIFFANIE Not Available Start: 01-25-2024 End: 01-25-2024 ambulatory SHAIKH TIFFANIE Not Available Start: 11-16-2023 End: 11-16-2023 ambulatory SHAIKH TIFFANIE Not Available Start: 08-31-2023 End: 08-31-2023 ambulatory JOYCE [facility] Start: 08-04-2023 ambulatory Funmi HUERTA Facility :[facility] Start: 07-21-2023 ambulatory Funmi HUERTA Facility:[facility] Start: 07-03-2022 ambulatory MARIANELA SADIA Facility:[facility] Start: 01-26-2022 ambulatory MARIANELA SADIA Facility:[facility] Start: 01-25-2022 End: 01-26-2022 ambulatory MARIANELA SADIA Facility:[facility] Start: 01-12-2022 End: 01-13-2022 ambulatory MARIANELA SADIA Facility:[facility] Immunizations Immunization Date Immunization Notes Care Provider Fa cili 09-28-2023 influenza virus vaccine, unspecified formulation Funmi HUERTA [facility] 10-23-2021 SARS-CoV-2 (COVID-19 ) mRNA-1273 vaccine Funmi VICTORL [facility] 03-06-2021 SARS-CoV-2 (COVID-19 ) mRNA-1273 vaccine Funmi VICTORL [facility] 02-06-2021 SARS-CoV-2 (COVID-19 ) oCNK-1395 vaccine Funmi VICTORChano [facility] Medications Current Medications Medication Drug Class(es) Dates [...] Refills(s) 0 Start Date: 03/20/24 Status: Ordered Payers Date Payer Category Payer Medicare [id number] 1957 Private Health Insurance [facility] [id number] Private Health Insurance [facility] [id number] 1957 Self-pay 1955 Unknown [id number] 2.16.84 [id number] 1955 Unknown [id number] 2.16.84 [id number] 1955 Unknown [id number] 2.16.84 [id number] 1955 Unknown [id number] 2.16.84 [id number] 1955 Unknown [id number] 2.16.8 [id number] 1955 Unknown [id number] 2.16.8 [id number] 1955 Unknown [id number] 2.16.84 0.1.566485.3.579.2.1259 1955 Unknown [id number] 2.16.84 [id number] 1955 Unknown [id number] 2.16.84 0.1.156190.3.579.2.1259 1955 Unknown [id number] 2.16.84 [id number] 1955 Unknown [id number] 2.16.840 .[id number] Problems Active Problems Problem Classification Problem Date Documented Date Episodic/Chronic Coronary atherosclerosis and other heart disease (7 sources) Atherosclerotic heart disease of [place] coronary artery without angina pectoris; Translations: [Coronary [...] [OTHER FORMS OF DYSPNEA] Onset: 01-14-2022 Episodic Procedures Date Procedure Procedure Detail Performing Clinician Start: 04-08-2014 Colonoscopy Funmi CARRION Cardiac catheterization Isma graves NILL Repair of umbilical hernia M ichael NILL Tonsillectomy and adenoidectomy Funmi HUERTA Results Test Name Value Interpretation Reference Range Facility Insurance Correspondenceon 0 05-17-2024 Insurance Correspondence [id number]# 1.00TIFF Normal [facility] Consent for Procedure/Surger yon 04-18-2024 Consent for Procedure/Surgery [id number]#1. 00TIFF Normal [facility] Facesheeton 04-17-2024 Facesheet [id number]# 1.00TIFF [facility] Ambulatory Visit Summaryon 0 04-16-2024 Ambulatory Visit Summary FUNMI JULIO :1955 Visit Date:04/16/2024 Ambulatory Visit Instructions Your Diagnosis Screening for malignant neoplasm of colon Class 3 obesity Your Care Team Attending Physician - MARTÍN PARISH, Funmi Santos Primary Care Physician - TIFFANIE PARISH, MERCEDES Referring Physician - LIT BARILLAS MD This [...] for choosing us for your care. Normal [facility] Office Visiton 03-22-2024 Follow-up visit [id number] HumbertoFunmiAmol 1955 M Date Provider Department Center 03/22/2024 RONDA MÉNDEZ EVIE Flores Family History Problem Relation Age of Onset Hypertension Brother Heart attack Other Family Status - Relation Status Age at Brother Other Level of Service:92494 [place] OFFICE/OUTPATIENT ESTABLISHED LOW MDM 20 MIN Reason for Visit and Comments: Follow-up [541558] - 6 month Normal [facility] Reminderson 03-15-2024 Reminders - From: Tracy Walls LPN To: N - Clinical; Sent: 07/27/2023 08:16:44 EDT Show up: 03/09/2024 07:00:00 EDT Subject: colonoscopy recall Due Date/Time: 04/08/2024 07:00:00 EDT Reminder/Recall Patient due for screening colonoscopy 03/2024. Left voice mail message to call to schedule consultation. Left voice mail message to call to schedule consultation. future appointmentFuture Appointments [facility]LE[facility] Borreg[facility] Appt. Date: 04/02/2024 2:20 PM Scheduled Provider: Funmi Huerta MD, [address] [facility] [address] [place], [address] [facility] 36on 09-15-2023 36 BP looks better. Continue all his current BP medications. Recommend he continues to monitor his BP a couple times a week and let us know if consistently runs elevated. Plan to follow-up in 6 months as planned or sooner if needed. Thanks! Normal [facility] Office Visiton 08-31-2023 Follow-up visit [id number] Funmi Julio 1955 M Date Provider Department Center 08/31/2023 JOYCE RICKETTS Family History Problem Relation Age of Onset Hypertension Brother Heart attack Other Family Status - Relation Status Age at Brother Other Level of Service:57546 [place] OFFICE/OUTPATIENT ESTABLISHED LOW MDM 20-29 MIN Reason for Visit and Comments: Coronary Artery Disease [187] Hypertension [739774] Hyperlipidemia [182] Normal [facility] Physician Referralon 023 Physician Referral [id number] .00CD:[address] [facility] CARDIAC STRESS TESTon 2021 CARDIAC STRESS [...] interpreted and reported in a separate dictation. [facility] Signed and Approved by: DR PADDY STANFORD 02/01/2022 09:17:00 Normal [facility] NM STRESS/REST MULTIon 01-25 NM STRESS/REST MULTI Patient: FUNMI JULIO Exam Date: 01/25/2022 : 1955 Gender:M Ordering : MARIANELA MCCULLOUGH Admission #: [id number] Family : Order #: [id number] CLICK HERE TO VIEW EXAM RADIOLOGY REPORT [...] M.D. on 01/26/2022 at 11:49 Normal [facility] [place] [facility] BNPon 01-12-2022 NT PRO BNP <11.1 Normal <=900.0 [facility] [place] [facility] Comment on above: Performed By: #### B WOOD BOATBUILDER APPRENTICE, CMP, LIPID, CRP #### [facility] [place] [facility] [address] [place] [address] Dr. Ramesh Min CBC AUTO DIFFon 01-12-2022 BASO # 0.1 103/ul Normal 0.0-0.1 [facility] Comment on above: Performed By: #### C BC #### [facility] [place] [facility] [address] [place] [address] Dr. Ramesh Min Basophils/100 WBC (Bld) 0.5 % Normal 0.2-2.0 [facility] Comment on above: Performed By: #### C BC #### [facility] [place] [facility] [address] [place] [address] Dr. Ramesh Min EO # 0.2 103/ul Normal 0.0-0.7 [facility] [place] [facility] Comment on above: Performed By: #### C BC #### [facility] [place] [facility] [address] [place] [address] Dr. Ramesh Min Eosinophils/100 WBC (Bld) 2.0 % Normal 0.9-7.0 [facility] [place] [facility] Comment on above: Performed By: #### C BC #### [facility] [place] [facility] [address] [place] [address] Dr. Ramesh Min Erythrocyte distribution width (RBC) [Ratio] 13.1 % Normal 11.0-15.0 [facility] [place] [facility] Comment on above: Performed By: #### C BC #### [facility] [place] [facility] [address] [place] [address] Dr. Ramesh Min Hematocrit (Bld) [Volume fraction] 44.2 % Normal 42.0-54.0 [facility] [place] [facility] Comment on above: Performed By: #### C BC #### [facility] [place] [facility] [address] [address] [address] Ramesh Min Hemoglobin (Bld) [Mass/Vol] 14.8 g/dL Normal 14.0-18.0 [facility] Comment on above: Performed By: #### C BC #### [facility] [place] [facility] [address] [address] [address] Ramesh Min IG # 0.05 10e3/ul Critically high 0.00-0.03 [facility] Comment on above: Performed By: #### C BC #### [facility] [place] [facility] [address] [place] [address] Dr. Ramesh Min IG % 0.5 % Normal 0.0-0.5 [facility] Comment on above: Performed By: #### C BC #### [facility] [place] [facility] [address] [place] [address] Dr. Ramesh Min LYMPH # 2.4 103/ul Normal 1.2-3.8 [facility] Comment on above: Performed By: #### C BC #### [facility] [place] [facility] [address] [place] [address] Dr. Ramesh Min Lymphocytes/100 WBC (Bld) 25.0 % Normal 20.5-60.0 [facility] Comment on above: Performed By: #### C BC #### [facility] [place] [facility] [address] [place] [address] Dr. Ramesh Min MANUAL DIFF REQ NO Normal [facility] [place] [facility] Comment on above: Performed By: #### C BC #### [facility] [place] [facility] [address] [place] [address] Dr. Ramesh Min MCH (RBC) [Entitic mass] 30.5 pg Normal 25.9-34.0 [facility] Comment on above: Performed By: #### C BC #### [facility] [place] [facility] [address] [place] [address] Dr. Ramesh Min MCHC (RBC) [Mass/Vol] 33.5 g/dL Normal 29.9-35.2 [facility] Comment on above: Performed By: #### C BC #### [facility] [place] [facility] [address] [place] [address] Dr. Ramesh Min MCV (RBC) [Entitic vol] 91.1 fL Normal 80.0-94.0 [facility] [place] [facility] Comment on above: Performed By: #### C BC #### [facility] [place] [facility] [address] [place] [address] Dr. Ramesh Min MONO # 0.8 103/ul Normal 0.3-0.8 [facility] [place] [facility] Comment on above: Performed By: #### C BC #### [facility] [place] [facility] [address] [place] [address] Dr. Ramesh Mni Monocytes/100 WBC (Bld) 8.8 % Normal 1.7-12.0 [facility] [place] [facility] Comment on above: Performed By: #### C BC #### [facility] [place] [facility] [address] [place] [address] Dr. Ramesh Min NEUT # 6.1 103/ul Normal 1.4-6.5 [facility] [place] [facility] Comment on above: Performed By: #### C BC #### [facility] [place] [facility] [address] [place] [address] Dr. Ramesh Min Neutrophils/100 WBC (Bld) 63.2 % Normal 43.0-75.0 [facility] [place] [facility] Comment on above: Performed By: #### C BC #### [facility] [place] [facility] [address] [place] [address] Dr. Ramesh Min Platelet mean volume (Bld) [Entitic vol] 8.7 fL Critically low 9.5-13.5 [facility] [place] [facility] Comment on above: Performed By: #### C BC #### [facility] [place] [facility] [address] [place] [address] Dr. Ramesh Min PLT 330 103/ul Normal 150-450 [facility] [place] [facility] Comment on above: Performed By: #### C BC #### [facility] [place] [facility] [address] [place] [address] Dr. Ramesh Min RBC 4.85 106/ul Normal 4.70-6.10 [facility] [place] [facility] Comment on above: Performed By: #### C BC #### [facility] [place] [facility] [address] [place] [address] Dr. Ramesh Min WBC 9.6 103/ul Normal 4.0-11.0 [facility] Comment on above: Performed By: #### C BC #### [facility] [place] [facility] [address] [address] [address] Ramesh Min CRPon 01-12-2022 CRP 0.7 mg/dL Normal <=1.0 [facility] Comment on above: Performed By: #### B WOOD BOATBUILDER APPRENTICE, CMP, LIPID, CRP #### [facility] [place] [facility] [address] [place], [place] [address] Dr. Ramesh Min ECHOCARDIO M/2D COMPLETEon 0 01-12-2022 ECHOCARDIO M/2D COMPLETE Patient: FUNMI JULIO Exam Date: 01/12/2022 : 1955 Gender:M Ordering : MARIANELA Lynch SADIA Admission #: [id number] Family : Order #: [id number] CLICK HERE TO VIEW EXAM ECHOCARDIOGRAM REPORT [...] Gao M.D. on 01/13/2022 at 08:51 Normal [facility] GLYCOHEMOGLOBIN A1Con 2021 ADA RECOMMENDATION ADA THERAPEUTIC TARGET 6.0 - 7.0 ACTION SUGGESTED > 7.0 Normal [facility] Comment on above: Performed By: #### A 1C #### [facility] [place] [facility] [address] [place] [address] Dr. Ramesh Min Glucose [Mass/Vol] 137 mg/dL Normal [facility] Comment on above: Performed By: #### A 1C #### [facility] [place] [facility] [address] [address] [address] Ramesh Min HbA1c (Bld) [Mass fraction] 6.4 % Critically high <=6.0 [facility] Comment on above: Performed By: #### A 1C #### [facility] [place] [facility] [address] [address] [address] Ramesh Min LIPID PROFILEon 01-12-2022 CHOL-HDL RATIO NORM SEE BELOW Normal [facility] Comment on above: Result Comment: 3.3 - 4.4 LOW RISK 4.4 - 7.1 AVERAGE RISK 7.1 - 11.0 MODERATE RISK >11.0 HIGH RISK Performed By: #### B WOOD BOATBUILDER APPRENTICE, CMP, LIPID, CRP #### [facility] [place] [facility] [address] [place] [address] Dr. Ramesh Min Cholesterol [Mass/Vol] 125 mg/dL Normal <=200 [facility] Comment on above: Performed By: #### B WOOD BOATBUILDER APPRENTICE, CMP, LIPID, CRP #### [facility] [place] [facility] [address] [address] [address] Ramesh Min Cholesterol in HDL [Mass/Vol] 39 mg/dL Normal [facility] Comment on above: Performed By: #### B WOOD BOATBUILDER APPRENTICE, CMP, LIPID, CRP #### [facility] [place] [facility] [address] [address] [address] Ramesh Min Cholesterol in LDL [Mass/Vol] 69.2 mg/dL Normal [facility] Comment on above: Performed By: #### B WOOD BOATBUILDER APPRENTICE, CMP, LIPID, CRP #### [facility] [place] [facility] [address] [address] [address] Ramesh Min Cholesterol.total/Cho lesterol in HDL [Mass ratio] 3.2 {ratio} Normal [facility] Comment on above: Performed By: #### B WOOD BOATBUILDER APPRENTICE, CMP, LIPID, CRP #### [facility] [place] [facility] [address] [address] [address] Ramesh Min HDL NORMAL > or = 60 mg/dl - LO W CARDIOVASCULAR RISK <40 mg/dl - HIGH CARDIOVASCULAR RISK Normal [facility] Comment on above: Performed By: #### B WOOD BOATBUILDER APPRENTICE, CMP, LIPID, CRP #### [facility] [place] [facility] [address] [address] [address] Ramesh Min LDL CALC NORMAL SEE BELOW Normal [facility] [place] [facility] Comment on above: Result Comment: <100 mg/dl OPTIMAL 100 - 129 mg/dl NEAR OR ABOVE OPTIMAL 130 - 159 mg/dl BORDERLINE HIGH 160 - 189 mg/dl HIGH >190 mg/dl VERY HIGH Performed By: #### B WOOD BOATBUILDER APPRENTICE, CMP, LIPID, CRP #### [facility] [place] [facility] [address] [address] [address] Ramesh Min Triglyceride [Mass/Vol] 84 mg/dL Normal <=150 [facility] [place] [facility] Comment on above: Performed By: #### B WOOD BOATBUILDER APPRENTICE, CMP, LIPID, CRP #### [facility] [place] [facility] [address] [address] [address] Ramesh Min VLDL CALC 16.8 mg/dL Normal [facility] [place] [facility] Comment on above: Performed By: #### B WOOD BOATBUILDER APPRENTICE, CMP, LIPID, CRP #### [facility] [place] [facility] [address] [address] [address] Ramesh Min PROF 14(COMP METB)on 022 Albumin [Mass/Vol] 3.7 g/dL Normal 3.5-5.0 [facility] Comment on above: Performed By: #### B WOOD BOATBUILDER APPRENTICE, CMP, LIPID, CRP #### [facility] [place] [facility] [address] [address] [address] Ramesh Min Albumin/Globulin [Mass ratio] 0.9 {ratio} Normal [facility] Comment on above: Performed By: #### B WOOD BOATBUILDER APPRENTICE, CMP, LIPID, CRP #### [facility] [place] [facility] [address] [place] [address] Dr. Ramehs Min ALP [Catalytic activity/Vol] 75 U/L Normal 38-126 [facility] Comment on above: Performed By: #### B WOOD BOATBUILDER APPRENTICE, CMP, LIPID, CRP #### [facility] [place] [facility] [address] [place] [address] Dr. Ramesh Min ALT [Catalytic activity/Vol] 33 U/L Normal 21-72 [facility] Comment on above: Performed By: #### B WOOD BOATBUILDER APPRENTICE, CMP, LIPID, CRP #### [facility] [place] [facility] [address] [place] [address] Dr. Ramesh Min Anion gap [Moles/Vol] 10.8 mmol/L Normal [facility] Comment on above: Performed By: #### B WOOD BOATBUILDER APPRENTICE, CMP, LIPID, CRP #### [facility] [place] [facility] [address] [place] [address] Dr. Ramesh Min AST [Catalytic activity/Vol] 15 U/L Critically low 17-59 [facility] Comment on above: Performed By: #### B WOOD BOATBUILDER APPRENTICE, CMP, LIPID, CRP #### [facility] [place] [facility] [address] [place] [address] Dr. Ramesh Min Bilirubin [Mass/Vol] 0.3 mg/dL Normal 0.2-1.3 [facility] Comment on above: Performed By: #### B WOOD BOATBUILDER APPRENTICE, CMP, LIPID, CRP #### [facility] [place] [facility] [address] [address] [address] Ramesh Min Calcium [Mass/Vol] 9.5 mg/dL Normal 8.4-10.2 [facility] Comment on above: Performed By: #### B WOOD BOATBUILDER APPRENTICE, CMP, LIPID, CRP #### [facility] [place] [facility] [address] [address] [address] Ramesh Min Chloride [Moles/Vol] 103 mmol/L Normal 98-107 [facility] [place] [facility] Comment on above: Performed By: #### B WOOD BOATBUILDER APPRENTICE, CMP, LIPID, CRP #### [facility] [place] [facility] [address] [address] [address] Ramesh Min CO2 [Moles/Vol] 28.4 mmol/L Normal 22.0-30.0 [facility] [place] [facility] Comment on above: Performed By: #### B WOOD BOATBUILDER APPRENTICE, CMP, LIPID, CRP #### [facility] [place] [facility] [address] [place] [address] Dr. Ramesh Min Creatinine [Mass/Vol] 0.92 mg/dL Normal 0.66-1.25 [facility] Comment on above: Performed By: #### B WOOD BOATBUILDER APPRENTICE, CMP, LIPID, CRP #### [facility] [place] [facility] [address] [place] [address] Dr. Ramesh iMn EGFR-AF LATVIAN >60 Normal >=60 [facility] [place] [facility] Comment on above: Performed By: #### B WOOD BOATBUILDER APPRENTICE, CMP, LIPID, CRP #### [facility] [place] [facility] [address] [place] [address] Dr. Ramesh Min EGFR-NON AF LATVIAN >60 Normal >=60 [facility] [place] [facility] Comment on above: Performed By: #### B WOOD BOATBUILDER APPRENTICE, CMP, LIPID, CRP #### [facility] [place] [facility] [address] [address] [address] Ramesh Min Globulin (S) [Mass/Vol] 4.1 g/dL Normal [facility] Comment on above: Performed By: #### B WOOD BOATBUILDER APPRENTICE, CMP, LIPID, CRP #### [facility] [place] [facility] [address] [place] [address] Dr. Ramesh Min Glucose [Mass/Vol] 104 mg/dL Normal 74-106 [facility] Comment on above: Performed By: #### B WOOD BOATBUILDER APPRENTICE, CMP, LIPID, CRP #### [facility] [place] [facility] [address] [address] [address] Ramesh Min Potassium [Moles/Vol] 4.2 mmol/L Normal 3.4-5.0 [facility] Comment on above: Performed By: #### B WOOD BOATBUILDER APPRENTICE, CMP, LIPID, CRP #### [facility] [place] [facility] [address] [address] [address] Ramesh Min Protein [Mass/Vol] 7.8 g/dL Normal 6.1-8.2 [facility] Comment on above: Performed By: #### B WOOD BOATBUILDER APPRENTICE, CMP, LIPID, CRP #### [facility] [place] [facility] [address] [place] [address] Dr. Ramesh Min Sodium [Moles/Vol] 138 mmol/L Normal 137-145 [facility] Comment on above: Performed By: #### B WOOD BOATBUILDER APPRENTICE, CMP, LIPID, CRP #### [facility] [place] [facility] [address] [address] [address] Ramesh Min Urea nitrogen [Mass/Vol] 18.0 mg/dL Normal 9.0-20.0 [facility] Comment on above: Performed By: #### B WOOD BOATBUILDER APPRENTICE, CMP, LIPID, CRP #### [facility] [place] [facility] [address] [place] [address] Dr. Ramesh Min Urea nitrogen/Creatinine [Mass ratio] 19.6 mg/mg Normal [facility] Comment on above: Performed By: #### B WOOD BOATBUILDER APPRENTICE, CMP, LIPID, CRP #### [facility] [place] [facility] [address] [place] [address] Dr. Ramesh Min SED RATE [facility] 2021 SED RATE 20 mm/hr Normal <=20 [facility] Comment on above: Performed By: #### S EDR #### [facility] [place] [facility] [address] [place] [address] Dr. Ramesh Min Social History Date Type Detail Facility Start: 04-16-2024 Tobacco smoking status Ex-smoker (fi nding) [facility] Tobacco smoking status Smokeless tobacco user within last 30 days [facility] Sex Assigned At Male [facility] Vital Signs Date Time Vital Sign Value Performing Clinician Claude pickard 04-16-2024 15:18-0400 Blood Pressure Location Inform Direct [facility] 04-16-2024 15:18-0400 Diastolic blood pressure 92 mm[Hg] [facility] 04-16-2024 15:18-0400 Heart rate 76 /min [facility] 04-16-2024 15:18-0400 Respiratory rate 16 /min [facility] 04-16-2024 15:18-0400 Systolic blood pressure 140 mm[Hg] [facility] Functional Status Date Assessment Result Facility 04-16-2024 Functional Status N/A [facility] Clinical Note 04-16-2024 Note Date & Type [...] Brother. Primary oscar (more content not included)... [facility] Comment on above: Result Comment: Elec tronically Signed By: MARTÍN PARISH, Funmi Suazo\Date and Time Signed: 04/16/24 16:19 EDT Progress note 03-22-2024 Note Date & Type Note Facility 03-22-2024 Note [facility] Subjective Funmi Julio is a 68 y.o. year old male [...] complication, without long-term current use of insulin ([facility]) Family History Problem Relation Name [...] that time he had ran out of [facility] [employer] and this was refilled. His blood pressure [...] that they are referring him to a junior legal secretary for follow-up. Review of Systems Cardiovascular: Positive [...] in the morni (more content not included)... [facility] Progress note 08-31-2023 Note Date [...] All other systems reviewed and are negative. [facility] Progress note 08-31-2023 Note Date & Type Note Facility 08-31-2023 Note [facility] SUBJECTIVE Chief Complaint Patient presents with [...] year. 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 [facility] Evaluation + Plan note Note Date & Type Note Facility Evaluation + Plan note No data available for this section [facility] Hospital Discharge instructions Note Date & Type Note Facility Hospital Discharge instructions No data available for this section [facility] Progress note Note Date & Type Note Facility Progress note No data available for this section [facility] Summary Purpose Family History No Family History Records FoundNo Family History Records Found No data available for this section No Family History Records FoundNo Family History Records Found Advance Directives No Advanced Directives Records FoundNo Advanced Directives Records FoundNo Advanced Directives Records FoundNo Advanced Directives Records Found Additional Source Comments (unrecognized sect ion and content) No Status Records FoundNo Status Records FoundNo Status Records FoundNo Status Records Found INFORMATION SOURCE (unrecogn ized section and content) DATE CREATED AUTHOR 07/03/2022 [facility] DATE CREATED AUTHOR AUTHOR'S ORGANIZ ATION 03/24/2024 [facility] DATE CREATED AUTHOR AUTHOR'S ORGANIZ ATION 05/19/2024 [facility] DATE CREATED AUTHOR AUTHOR'S ORGANIZ ATION 05/24/2024 [facility] Patient Care team informatio n (unrecognized section and content) Personnel Name: SHAIKH MORENO MD Address: Address: [address] [place] [id number] FOR RECORDS PERTAINING TO PATIENTS WHO ARE [...] BE BASED ON THE PRIMARY CLINICAL RECORDS. [facility] provides no warranty or guarantee of the accuracy or completeness of information in this document.
[2024-05-29 06:45] VITALS: BP 143/94; PULSE 70; TEMP 36.4; O2SAT 92; BMI 41.3; BMI 41.4
[2024-05-29 06:57] LABS: Glucometer 117 mg/dL (74-106)
[2024-05-29] MEDS: LACTATED RINGER'S SOLUTION 1,000 ML 50 ML IV (07:10)
[2024-05-29 08:22] VITALS: BP 127/66; PULSE 69; TEMP 36.2; O2SAT 94
[2024-05-29 08:37] VITALS: BP 117/78; PULSE 74; O2SAT 95
[2024-05-29 08:52] VITALS: BP 147/95; PULSE 63; O2SAT 92
== END 2024-05-29 08:52 | disposition home or self-care (01) ==
PROVIDERS: PCP Internal Medicine; Visit Provider Surgery
PROC: (CPT G0121; principal; 2024-05-29 07:40)
DX: Z12.11 Encounter for screening for malignant neoplasm of colon (principal); Q43.8 Other specified congenital malformations of intestine; E11.9 Type 2 diabetes mellitus without complications; I25.10 Atherosclerotic heart disease of native coronary artery without angina pectoris; K21.9 Gastro-esophageal reflux disease without esophagitis; F32.A Depression, unspecified; Z79.84 Long term (current) use of oral hypoglycemic drugs; Z87.891 Personal history of nicotine dependence; E66.01 Morbid (severe) obesity due to excess calories; Z68.41 Body mass index [BMI] 40.0-44.9, adult; G47.33 Obstructive sleep apnea (adult) (pediatric); E78.5 Hyperlipidemia, unspecified
CPT/HCPCS: G0121; 36415; 82948; J2250; J2704; J3010

== ENCOUNTER 2024-07-15 08:13 | Outpatient (OUT) | payer MEDICARE, SELFPAY ==
--- OUTSIDE RECORDS SUMMARY | 2024-07-15 08:27 | XMS_ITS | CCD ---
Author Organization [facility] Inform ion [facility] Care Team Providers Care Brick Pointer Name Role Phone SADIA, MARIANELA Admitting Unavailable [...] Attending Unavailable SHAIKH MORENO Primary Care Physician [phone] Funmi HUERTA Attending Unavailable LIT BARILLAS Referring Unavailable NILL, Funmi Santos Attending Unavailable LIT BARILLAS Referring Unavailable NILHeather, Funmi Santos Attending Unavailable SHAIKH MORENO Attending Unavailable SHAIKH MORENO Attending Unavailable MARTIR DURHAM Attending Unavailable SHAIKH MORENO Referring Unavailable SHAIKH MORENO Attending Unavailable TANIA GUSMAN Attending Unavailable SHAIKH MORENO Attending Unavailable Allergies Allergy Classification Reported Allergen(s) Allergy Type Date of Onset Reaction(s) Facility (1 source) oxyCODONE Drug Allergy 2 [facility] Repository (3 sources) oxyCODONE; Translations: [OXYCODONE] Drug Allergy 2 Dyspnea (finding), Weal (disorder) [facility] Repository Medications Current Medications Medication Drug Class(es) [...] disease (7 sources) Atherosclerotic heart disease of [place] coronary artery without angina pectoris; Translations: [Coronary [...] Test Name Value Interpretation Reference Range Facility Reminderson 05-31-2024 Reminders Reminders From: Tracy Walls LPN To: GSN - Clinical; Sent: 05/31/2024 09:11:26 EDT Show up: 04/29/2034 07:00:00 EDT Subject: colonoscopy recall Due Date/Time: 05/29/2034 07:00:00 EDT Reminder/Recall Patient due for screening colonoscopy 05/29/2034. Normal [facility] Insurance Correspondenceon 0 05-17-2024 Insurance Correspondence [id number]# 1.00TIFF [facility] Consent for Procedure/Surger yon 04-18-2024 Consent for Procedure/Surgery [id number]#1. 00TIFF [facility] Facesheeton 04-17-2024 Facesheet [id number]# 1.00TIFF [facility] Ambulatory Visit Summaryon 0 04-16-2024 Ambulatory Visit Summary FUNMI JULIO :1955 Visit Date:04/16/2024 Ambulatory Visit Instructions Your Diagnosis Screening for malignant neoplasm of colon Class 3 obesity Your Care Team Attending Physician - MARTÍN PARISH, Funmi Santos Primary Care Physician - TIFFANIE PARISH, [facility] Referring Physician - ERAN PARISH, LIT This Is Your Medications List Contact prescribing [...] for choosing us for your care. Normal [facility] Office Visiton 03-22-2024 Follow-up visit [id number] Funmi Julio 1955 M Date Provider Department Center 03/22/2024 [facility]RONDA THIBODEAUX [facility] Family History Problem Relation Age of Onset Hypertension Brother Heart attack Other Family Status - Relation Status Age at Brother Other Level of Service:65874 [place] OFFICE/OUTPATIENT ESTABLISHED LOW MDM 20 MIN Reason for Visit and Comments: Follow-up [453180] - 6 month Normal [facility] Reminderson 03-15-2024 Reminders - From: Tracy Walls LPN To: GSN - Clinical; Sent: 07/27/2023 08:16:44 EDT Show up: 03/09/2024 07:00:00 EDT Subject: colonoscopy recall Due Date/Time: 04/08/2024 07:00:00 EDT Reminder/Recall Patient due for screening colonoscopy 03/2024. Left voice mail message to call to schedule consultation. Left voice mail message to call to schedule consultation. future appointmentFuture Appointments SELENA Borrego Appt. Date: 04/02/2024 2:20 PM Scheduled Provider: Funmi Huerta MD, [address] [facility] [address] [place], [address] Normal [facility] 36on 09-15-2023 36 BP looks better. Continue all his current BP medications. Recommend he continues to monitor his BP a couple times a week and let us know if consistently runs elevated. Plan to follow-up in 6 months as planned or sooner if needed. Thanks! Normal [facility] Office Visiton 08-31-2023 Follow-up visit [id number] Funmi Julio 1955 M Date Provider Department Center 08/31/2023 JOYCE RICKETTS Family History Problem Relation Age of Onset Hypertension Brother Heart attack Other Family Status - Relation Status Age at Brother Other Level of Service:71982 [place] OFFICE/OUTPATIENT ESTABLISHED LOW MDM 20-29 MIN Reason for Visit and Comments: Coronary Artery Disease [187] Hypertension [366514] Hyperlipidemia [182] Normal [facility] Physician Referralon 023 Physician Referral [id number] .00CD:127 Normal [facility] CARDIAC STRESS TESTon 2021 CARDIAC STRESS [...] interpreted and reported in a separate dictation. [facility] Signed and Approved by: DR PADDY STANFORD 02/01/2022 09:17:00 Normal [facility] NM STRESS/REST MULTIon 01-25 NM STRESS/REST MULTI Patient: FUNMI JULIO Exam Date: 01/25/2022 : 1955 Gender:M Ordering : MARIANELA MOSQUEDAS Admission #: [id number] Family : Order #: [id number] CLICK HERE TO VIEW EXAM RADIOLOGY REPORT [...] M.D. on 01/26/2022 at 11:49 Normal [facility] BNPon 01-12-2022 NT PRO BNP <11.1 Normal <=900.0 [facility] Comment on above: Performed By: #### B OPERATIONS MGR, CMP, LIPID, CRP #### [facility] [address] [place] [address] Dr. Ramesh Min CBC AUTO DIFFon 01-12-2022 BASO # 0.1 103/ul Normal 0.0-0.1 [facility] Comment on above: Performed By: #### C BC #### [facility] [address] [place] [address] Dr. Ramesh Min Basophils/100 WBC (Bld) 0.5 % Normal 0.2-2.0 [facility] Comment on above: Performed By: #### C BC #### [facility] [address] [place] [address] Dr. Ramesh Min EO # 0.2 103/ul Normal 0.0-0.7 [facility] Comment on above: Performed By: #### C BC #### [facility] [address] [place] [address] Dr. Ramesh Min Eosinophils/100 WBC (Bld) 2.0 % Normal 0.9-7.0 [facility] Comment on above: Performed By: #### C BC #### [facility] [address] [place] [address] Dr. Ramesh Min Erythrocyte distribution width (RBC) [Ratio] 13.1 % Normal 11.0-15.0 [facility] Comment on above: Performed By: #### C BC #### [facility] [address] [place] [address] Dr. Ramesh Min Hematocrit (Bld) [Volume fraction] 44.2 % Normal 42.0-54.0 [facility] Comment on above: Performed By: #### C BC #### [facility] [address] [place] [address] Dr. Ramesh Min Hemoglobin (Bld) [Mass/Vol] 14.8 g/dL Normal 14.0-18.0 [facility] Comment on above: Performed By: #### C BC #### [facility] [address] [place] [address] Dr. Ramesh Min IG # 0.05 10e3/ul Critically high 0.00-0.03 [facility] Comment on above: Performed By: #### C BC #### [facility] [address] [place] [address] Dr. Ramesh Min IG % 0.5 % Normal 0.0-0.5 [facility] Comment on above: Performed By: #### C BC #### [facility] [address] [place] [address] Dr. Ramesh Min LYMPH # 2.4 103/ul Normal 1.2-3.8 [facility] Comment on above: Performed By: #### C BC #### [facility] [address] [place] [address] Dr. Ramesh Min Lymphocytes/100 WBC (Bld) 25.0 % Normal 20.5-60.0 [facility] Comment on above: Performed By: #### C BC #### [facility] [address] [place] [address] Dr. Ramesh Min MANUAL DIFF REQ NO Normal [facility] Comment on above: Performed By: #### C BC #### [facility] [address] [place] [address] Dr. Ramesh Min MCH (RBC) [Entitic mass] 30.5 pg Normal 25.9-34.0 [facility] Comment on above: Performed By: #### C BC #### [facility] [address] [place] [address] Dr. Ramesh Min MCHC (RBC) [Mass/Vol] 33.5 g/dL Normal 29.9-35.2 [facility] Comment on above: Performed By: #### C BC #### [facility] [address] [address] [address] Ramesh Min MCV (RBC) [Entitic vol] 91.1 fL Normal 80.0-94.0 [facility] Comment on above: Performed By: #### C BC #### [facility] [address] [address] [address] Ramesh Min MONO # 0.8 103/ul Normal 0.3-0.8 [facility] Comment on above: Performed By: #### C BC #### [facility] [address] [address] [address] Ramesh Min Monocytes/100 WBC (Bld) 8.8 % Normal 1.7-12.0 [facility] Comment on above: Performed By: #### C BC #### [facility] [address] [place] [address] Dr. Ramesh Min NEUT # 6.1 103/ul Normal 1.4-6.5 [facility] Comment on above: Performed By: #### C BC #### [facility] [address] [place] [address] Dr. Ramesh Min Neutrophils/100 WBC (Bld) 63.2 % Normal 43.0-75.0 [facility] Comment on above: Performed By: #### C BC #### [facility] [address] [address] [address] Ramesh Min Platelet mean volume (Bld) [Entitic vol] 8.7 fL Critically low 9.5-13.5 [facility] Comment on above: Performed By: #### C BC #### [facility] [address] [address] [address] Ramesh Min PLT 330 103/ul Normal 150-450 [facility] Comment on above: Performed By: #### C BC #### [facility] [address] [address] [address] Ramesh Min RBC 4.85 106/ul Normal 4.70-6.10 [facility] Comment on above: Performed By: #### C BC #### [facility] [address] [address] [address] Ramesh Min WBC 9.6 103/ul Normal 4.0-11.0 [facility] Comment on above: Performed By: #### C BC #### [facility] [address] [id number] Ramesh Min CRPon 01-12-2022 CRP 0.7 mg/dL Normal <=1.0 [facility] Comment on above: Performed By: #### B OPERATIONS MGR, CMP, LIPID, CRP #### [facility] [address] [address] [address] Ramesh Min ECHOCARDIO M/2D COMPLETEon 0 01-12-2022 ECHOCARDIO M/2D COMPLETE Patient: FUNMI JULIO Exam Date: 01/12/2022 : 1955 Gender:M Ordering : MARIANELA MCCULLOUGH Admission #: [id number] Family : Order #: [id number] CLICK HERE TO VIEW EXAM ECHOCARDIOGRAM REPORT [...] Thibodeaux M.D. on 01/13/2022 at 08:51 Normal [facility] GLYCOHEMOGLOBIN A1Con 2021 ADA RECOMMENDATION ADA THERAPEUTIC TARGET 6.0 - 7.0 ACTION SUGGESTED > 7.0 Normal [facility] Comment on above: Performed By: #### A 1C #### [facility] [address] [place] [address] Dr. Ramesh Min Glucose [Mass/Vol] 137 mg/dL Normal [facility] Comment on above: Performed By: #### A 1C #### [facility] [address] [address] [address] Ramesh Min HbA1c (Bld) [Mass fraction] 6.4 % Critically high <=6.0 [facility] Comment on above: Performed By: #### A 1C #### [facility] [address] [place] [address] Dr. Ramesh Min LIPID PROFILEon 01-12-2022 CHOL-HDL RATIO NORM SEE BELOW Normal [facility] Comment on above: Result Comment: 3.3 - 4.4 LOW RISK 4.4 - 7.1 AVERAGE RISK 7.1 - 11.0 MODERATE RISK >11.0 HIGH RISK Performed By: #### B OPERATIONS MGR, CMP, LIPID, CRP #### [facility] [address] [address] [address] Ramesh Min Cholesterol [Mass/Vol] 125 mg/dL Normal <=200 [facility] Comment on above: Performed By: #### B OPERATIONS MGR, CMP, LIPID, CRP #### [facility] [address] [address] [address] Ramesh Min Cholesterol in HDL [Mass/Vol] 39 mg/dL Normal [facility] Comment on above: Performed By: #### B OPERATIONS MGR, CMP, LIPID, CRP #### [facility] [address] [address] [address] Ramesh Min Cholesterol in LDL [Mass/Vol] 69.2 mg/dL Normal [facility] Comment on above: Performed By: #### B OPERATIONS MGR, CMP, LIPID, CRP #### [facility] [address] [address] [address] Ramesh Min Cholesterol.total/Cho lesterol in HDL [Mass ratio] 3.2 {ratio} Normal [facility] Comment on above: Performed By: #### B OPERATIONS MGR, CMP, LIPID, CRP #### [facility] [address] [address] [address] Ramesh Min HDL NORMAL > or = 60 mg/dl - LO W CARDIOVASCULAR RISK <40 mg/dl - HIGH CARDIOVASCULAR RISK Normal [facility] Comment on above: Performed By: #### B OPERATIONS MGR, CMP, LIPID, CRP #### [facility] [address] [address] [address] Ramesh Min LDL CALC NORMAL SEE BELOW Normal [facility] Comment on above: Result Comment: <100 mg/dl OPTIMAL 100 - 129 mg/dl NEAR OR ABOVE OPTIMAL 130 - 159 mg/dl BORDERLINE HIGH 160 - 189 mg/dl HIGH >190 mg/dl VERY HIGH Performed By: #### B OPERATIONS MGR, CMP, LIPID, CRP #### [facility] [address] [address] [address] Ramesh Min Triglyceride [Mass/Vol] 84 mg/dL Normal <=150 [facility] Comment on above: Performed By: #### B OPERATIONS MGR, CMP, LIPID, CRP #### [facility] [address] [address] [address] Ramesh Min VLDL CALC 16.8 mg/dL Normal [facility] Comment on above: Performed By: #### B OPERATIONS MGR, CMP, LIPID, CRP #### [facility] [address] [address] [address] Ramesh Min PROF 14(COMP METB)on 022 Albumin [Mass/Vol] 3.7 g/dL Normal 3.5-5.0 [facility] Comment on above: Performed By: #### B OPERATIONS MGR, CMP, LIPID, CRP #### [facility] [address] [address] [address] Ramesh Min Albumin/Globulin [Mass ratio] 0.9 {ratio} Normal [facility] Comment on above: Performed By: #### B OPERATIONS MGR, CMP, LIPID, CRP #### [facility] [address] [address] [address] Ramesh Min ALP [Catalytic activity/Vol] 75 U/L Normal 38-126 [facility] Comment on above: Performed By: #### B OPERATIONS MGR, CMP, LIPID, CRP #### [facility] [address] [address] [address] Ramesh Min ALT [Catalytic activity/Vol] 33 U/L Normal 21-72 [facility] Comment on above: Performed By: #### B OPERATIONS MGR, CMP, LIPID, CRP #### [facility] [address] [address] [address] Ramesh Min Anion gap [Moles/Vol] 10.8 mmol/L Normal [facility] Comment on above: Performed By: #### B OPERATIONS MGR, CMP, LIPID, CRP #### [facility] [address] [address] [address] Ramesh Min AST [Catalytic activity/Vol] 15 U/L Critically low 17-59 [facility] Comment on above: Performed By: #### B OPERATIONS MGR, CMP, LIPID, CRP #### [facility] [address] [address] [address] Ramesh Min Bilirubin [Mass/Vol] 0.3 mg/dL Normal 0.2-1.3 [facility] Comment on above: Performed By: #### B OPERATIONS MGR, CMP, LIPID, CRP #### [facility] [address] [place] [address] Dr. Ramesh Min Calcium [Mass/Vol] 9.5 mg/dL Normal 8.4-10.2 [facility] Comment on above: Performed By: #### B OPERATIONS MGR, CMP, LIPID, CRP #### [facility] [address] [place] [address] Dr. Ramesh Min Chloride [Moles/Vol] 103 mmol/L Normal 98-107 [facility] Comment on above: Performed By: #### B OPERATIONS MGR, CMP, LIPID, CRP #### [facility] [address] [place] [address] Dr. Ramesh Min CO2 [Moles/Vol] 28.4 mmol/L Normal 22.0-30.0 [facility] Comment on above: Performed By: #### B OPERATIONS MGR, CMP, LIPID, CRP #### [facility] [address] [place] [address] Dr. Ramesh Min Creatinine [Mass/Vol] 0.92 mg/dL Normal 0.66-1.25 [facility] Comment on above: Performed By: #### B OPERATIONS MGR, CMP, LIPID, CRP #### [facility] [address] [place] [address] Dr. Ramesh Min EGFR-AF CHILEAN >60 Normal >=60 [facility] Comment on above: Performed By: #### B OPERATIONS MGR, CMP, LIPID, CRP #### [facility] [address] [place] [address] Dr. Ramesh Min EGFR-NON AF CHILEAN >60 Normal >=60 [facility] Comment on above: Performed By: #### B OPERATIONS MGR, CMP, LIPID, CRP #### [facility] [address] [place] [address] Dr. Ramesh Min Globulin (S) [Mass/Vol] 4.1 g/dL Normal [facility] Comment on above: Performed By: #### B OPERATIONS MGR, CMP, LIPID, CRP #### [facility] [address] [address] [address] Ramesh Min Glucose [Mass/Vol] 104 mg/dL Normal 74-106 [facility] Comment on above: Performed By: #### B OPERATIONS MGR, CMP, LIPID, CRP #### [facility] [address] [address] [address] Ramesh Min Potassium [Moles/Vol] 4.2 mmol/L Normal 3.4-5.0 [facility] Comment on above: Performed By: #### B OPERATIONS MGR, CMP, LIPID, CRP #### [facility] [address] [address] [address] Ramesh Min Protein [Mass/Vol] 7.8 g/dL Normal 6.1-8.2 [facility] Comment on above: Performed By: #### B OPERATIONS MGR, CMP, LIPID, CRP #### [facility] [address] [place] [address] Dr. Ramesh Min Sodium [Moles/Vol] 138 mmol/L Normal 137-145 [facility] Comment on above: Performed By: #### B OPERATIONS MGR, CMP, LIPID, CRP #### [facility] [address] [address] [address] Ramesh Min Urea nitrogen [Mass/Vol] 18.0 mg/dL Normal 9.0-20.0 [facility] Comment on above: Performed By: #### B OPERATIONS MGR, CMP, LIPID, CRP #### [facility] [address] [address] [address] Ramesh Min Urea nitrogen/Creatinine [Mass ratio] 19.6 mg/mg Normal [facility] Comment on above: Performed By: #### B OPERATIONS MGR, CMP, LIPID, CRP #### [facility] [address] [address] [address] Ramesh Min SED RATE [facility] 2021 SED RATE 20 mm/hr Normal <=20 [facility] Comment on above: Performed By: #### S EDR #### [facility] [address] [address] [address] Ramesh Min Vital Signs Date Time Vital Sign Value Performing Clinician Faci lity 04-16-2024 15:18-0400 Blood Pressure Location Funmi VICTORL [facility] [place] 04-16-2024 15:18-0400 Diastolic blood pressure 92 mm[Hg] Funmi NILL [facility] [place] 04-16-2024 15:18-0400 Heart rate 76 /min Funmi NILL [facility] [place] 04-16-2024 15:18-0400 Respiratory rate 16 /min Funmi NILL [facility] [place] 04-16-2024 15:18-0400 Systolic blood pressure 140 mm[Hg] Funmi NILL [facility] [place] Encounters Encounter Date Encounter Type Care Provider Facility Start: 07-08-2024 End: 07-08-2024 ambulatory TANIA GUSMAN Not Available Start: 05-29-2024 End: 05-29-2024 ambulatory Funmi Danielle MARTÍN Facility:[id number] Start: 05-23-2024 End: 05-23-2024 ambulatory SHAIKH TIFFANIE Not Available Start: 04-16-2024 End: 04-16-2024 ambulatory Funmi R KAYLEIGHL [facility] Start: 04-16-2024 End: 04-16-2024 Patient encounter procedure Funmi Danielle MARTÍN [facility] [place] Start: 03-22-2024 End: 03-22-2024 ambulatory [facility] Start: 03-14-2024 End: 03-14-2024 ambulatory MARTIR DURHAM Not Available Start: 02-21-2024 End: 02-21-2024 ambulatory MERCEDES FAWWAD Not Available Start: 01-25-2024 End: 01-25-2024 ambulatory MERCEDES FAWWAD Not Available Start: 11-16-2023 End: 11-16-2023 ambulatory MERCEDES FAWWAD Not Available Start: 08-31-2023 End: 08-31-2023 ambulatory [facility] Start: 08-04-2023 ambulatory Funmi R NILL Facility :SELENA Borrego Start: 07-21-2023 ambulatory Funmi NILL Facility:Nichole Borrego Start: 07-03-2022 ambulatory MARIANELA MCCULLOUGH Facility:[facility] Start: 01-26-2022 ambulatory MARIANELA MCUCLLOUGH Facility:[facility] Start: 01-25-2022 End: 01-26-2022 ambulatory MARIANELA MCCULLOUGH Facility:[facility] Start: 01-12-2022 End: 01-13-2022 ambulatory MARIANELA MCCULLOUGH Facility:[facility] Procedures Date Procedure Procedure Detail Performing Clinician Start: 04-08-2014 Colonoscopy Funmi NI LL Cardiac catheterization Isma aeheather NILL Repair of umbilical hernia M ichael NILL Tonsillectomy and adenoidectomy Funmi NILL Immunizations Immunization Date Immunization Notes Care Provider Fa [facility] 09-28-2023 influenza virus vaccine, unspecified formulation Funmi NILL [facility] 10-23-2021 SARS-CoV-2 (COVID-19 ) mRNA-1273 vaccine Funmi NILL [facility] 03-06-2021 SARS-CoV-2 (COVID-19 ) mRNA-1273 vaccine Funmi NILL [facility] 02-06-2021 SARS-CoV-2 (COVID-19 ) mRNA-1273 vaccine Funmi NILL [facility] Payers Date Payer Category Payer Medicare [id number] 1957 Private Health Insurance [facility] [id number] Private Health Insurance [facility] [id number] Self-pay 1955 Unknown [id number] 2.16.84 [id number] 1955 Unknown [id number] 2.16.84 [id number] 1955 Unknown [id number] 2.16.84 [id number] 1955 Unknown [id number] 2.16.84 0.1.645973.3.579.2.593 1955 Unknown [id number] 2.16.8 40.1.570427.3.579.2.727 1955 Unknown [id number] 2.16.8 40.1.542362.3.579.2.727 1955 Unknown [id number] 2.16.8 40.1.459806.3.579.2.727 1955 Unknown [id number] 2.16.84 0.1.750436.3.579.2.1259 1955 Unknown [id number] 2.16.84 0.1.262336.3.579.2.1259 1955 Unknown [id number] 2.16.84 0.1.532654.3.579.2.1259 1955 Unknown [id number] 2.16.84 0.1.811218.3.579.2.1259 1955 Unknown [id number] 2.16.84 0.1.201405.3.579.2.1259 1955 Unknown [id number] 2.16.840 .1.797865.3.579.2.1259 Social History Date Type Detail Facility Start: 04-16-2024 Tobacco smoking status Ex-smoker (fi nding) [facility] Tobacco smoking status Smokeless tobacco user within last 30 days [facility] Sex Assigned At Male [facility] Functional Status Date Assessment Result Facility 04-16-2024 Functional Status N/A [facility] Clinical Note 04-16-2024 Note Date [...] Brother. Primary oscar (more content not included)... [facility] Comment on above: Result Comment: Elec tronically Signed By: MARTÍN PARISH, Funmi Santos\.br\Date and Time Signed: 04/16/24 16:19 EDT Progress note 03-22-2024 Note Date & Type Note Facility 03-22-2024 Note [place] [facility] - [facility] Subjective Funmi Julio is a [...] complication, without long-term current use of insulin ([facility]) Family History Problem Relation Name Age of [...] that time he had ran out of ampricer and this was refilled. His blood pressure [...] that they are referring him to a pilot submersible for follow-up. Review of Systems Cardiovascular: Positive [...] in the morni (more content not included)... [facility] Progress note 08-31-2023 Note Date & [...] All other systems reviewed and are negative. [facility] Progress note 08-31-2023 Note Date & Type Note Facility 08-31-2023 Note Cardiovascular Medic [facility] SUBJECTIVE Chief Complaint Patient presents with [...] complication, without long-term current use of insulin ([facility]) Past Medical History: Diagnosis Date Coronary artery disease Diabetes mellitus ([facility]) Hyperlipidemia Hypertension Sleep apnea Family History Problem [...] Echocardiogram from 01/12/2022 (more content not included)... [facility] Evaluation + Plan note Note Date & Type Note Facility Evaluation + Plan note No data available for this section [facility] Discharge instructions Note Date & Type Note Facility Hospital Discharge instructions No data available for this section [facility] Progress note Note Date & Type Note Facility Progress note No data available for this section [facility] Summary Purpose Family History No Family History [...] and content) DATE CREATED AUTHOR 07/03/2022 [facility] DATE CREATED AUTHOR AUTHOR'S ORGANIZ ATION 03/24/2024 [facility] DATE CREATED AUTHOR AUTHOR'S ORGANIZ ATION 06/12/2024 [facility] DATE CREATED AUTHOR AUTHOR'S ORGANIZ ATION 07/10/2024 [facility] EPIC Patient Care team informatio n (unrecognized section and content) Personnel Name: SHAIKH MORENO MD Address: Address: [address] [place] [address] FOR RECORDS PERTAINING TO PATIENTS WHO ARE [...] BE BASED ON THE PRIMARY CLINICAL RECORDS. [employer] [facility]. provides no warranty or guarantee of the accuracy or completeness of information in this document.
--- NOTE | 2024-07-15 08:52 | MR_ITS ---
[facility] [place] [id number] Patient Name: FUNMI JULIO MRN: [id number] date: 1955 Sex: M Assigned Patient Location: LAB Current Patient Location: LAB Accession/Order Number: [id number] Exam Date: 07/15/2024 09:01 Report Date: 07/15/2024 18:35 At the request of: TANIA GUSMAN Procedure: MR head/brain wo/w con EXAM: MR head/brain wo/w con HISTORY: Mild Cognitive Impairment COMPARISON: None. TECHNIQUE: Multisequence MRI brain was performed with and without intravenous contrast. FINDINGS: There is no restricted diffusion to suggest acute infarct. There is no midline shift, mass effect, or abnormal extraaxial fluid collections. There are no abnormal parenchymal or leptomeningeal enhancement. The cortical sulci and ventricular system are within normal limits. There are a few nonspecific scattered foci of T2/FLAIR signal abnormality in the supratentorial white matter, likely reflect chronic microvascular ischemic changes. The major intracranial flow voids are visualized. The cerebellar tonsils are normal in position. The orbits demonstrate no suspicious enhancement or any focal lesions. The paranasal sinuses show no air-fluid level. The mastoid air cells are clear. The calvarium and extracranial soft tissues are unremarkable. MR/MR head/brain wo/w con IMPRESSION: No acute intracranial abnormality or abnormal intracranial enhancement. Mild chronic microvascular ischemic changes. Electronically authenticated by: GERARDO UNLU Date: 07/15/2024 18:35
[2024-07-15 09:37] LABS: Thyroid Stimulating Hormone 0.891 uIU/mL (0.358-3.740)
== END 2024-07-15 08:14 | disposition home or self-care (01) ==
LOC: LAB 08:15
PROVIDERS: PCP Internal Medicine; Visit Provider Psychiatry & Neurology Neurology
DX: G31.84 Mild cognitive impairment of uncertain or unknown etiology (principal)
CPT/HCPCS: 36415; 70553; 82607; 84443; A9575

== ENCOUNTER 2024-07-15 08:19 | Outpatient (OUT) | payer MEDICARE, SELFPAY ==
--- OUTSIDE RECORDS SUMMARY | 2024-07-15 08:28 | XMS_ITS | CCD ---
Author Organization [facility] Inform ion [facility] Care Team Providers Care Computer Support Analyst Name Role Phone SADIA, MARIANELA Admitting Unavailable [...] Unavailable SHAIKH MORENO Primary Care Physician Funmi HUERTA Attending Unavailable LIT BARILLAS Referring Unavailable NILL, Funmi Santos Attending Unavailable LIT BARILLAS Referring Unavailable NILHeather, Funmi Santos Attending Unavailable SHAIKH MORENO Attending Unavailable SHAIKH MORENO Attending Unavailable MARTIR DURHAM Attending Unavailable SHAIKH OMRENO Referring Unavailable SHAIKH MORENO Attending Unavailable TANIA GUSMAN Attending Unavailable SHAIKH MORENO Attending Unavailable Allergies Allergy Classification Reported Allergen(s) Allergy Type Date of Onset Reaction(s) Facility (1 source) oxyCODONE Drug Allergy 2 [facility] Repository (3 sources) oxyCODONE; Translations: [OXYCODONE] Drug Allergy 2 Dyspnea (finding), Weal (disorder) [facility] Repository Medications Current Medications Medication Drug Class(es) [...] disease (7 sources) Atherosclerotic heart disease of [place] coronary artery without angina pectoris; Translations: [Coronary [...] Patient due for screening colonoscopy 05/29/2034. Normal [facility] Insurance Correspondenceon 0 05-17-2024 Insurance Correspondence [id number]# 1.00[facility] Consent for Procedure/Surger yon 04-18-2024 Consent for Procedure/Surgery [id number]#1. 00TIFF [facility] Facesheeton 04-17-2024 Facesheet [id number]# 1.00TIFF [facility] Ambulatory Visit Summaryon 0 04-16-2024 Ambulatory Visit Summary FUNMI JULIO :1955 Visit Date:04/16/2024 Ambulatory Visit Instructions Your Diagnosis Screening for malignant neoplasm of colon Class 3 obesity Your Care Team Attending Physician - MARTÍN PARISH, Funmi Santos Primary Care Physician - TIFFANIE PARISH, [facility] Referring Physician - ERAN PARISH, LIT This [...] choosing us for your care. Normal [facility] Office Visiton 03-22-2024 Follow-up visit [id number] Funmi Julio 1955 M Date Provider Department Center 03/22/2024 [facility] THIBODEAUX [facility] Family History Problem Relation Age of Onset Hypertension Brother Heart attack Other Family Status - Relation Status Age at Brother Other Level of Service:46059 [place] OFFICE/OUTPATIENT ESTABLISHED LOW MDM 20 MIN Reason for Visit and Comments: Follow-up [256758] - 6 month Normal [facility] Reminderson 03-15-2024 Reminders - From: Tracy Walls [...] Scheduled Provider: Funmi Huerta MD, [address] [facility] [address] [place], [address] Normal [facility] 36on 09-15-2023 36 BP looks better. Continue all his current BP medications. Recommend he continues to monitor his BP a couple times a week and let us know if consistently runs elevated. Plan to follow-up in 6 months as planned or sooner if needed. Thanks! Normal [facility] Office Visiton 08-31-2023 Follow-up visit [id number] Funmi Julio 1955 M Date Provider Department Center 08/31/2023 JOYCE RICKETTS Family History Problem Relation Age of Onset Hypertension Brother Heart attack Other Family Status - Relation Status Age at Brother Other Level of Service:48302 [place] OFFICE/OUTPATIENT ESTABLISHED LOW MDM 20-29 MIN Reason for Visit and Comments: Coronary Artery Disease [187] Hypertension [566464] Hyperlipidemia [182] Normal [facility] Physician Referralon 023 Physician Referral [id number] .[id number]:127 Normal [facility] CARDIAC STRESS TESTon 2021 CARDIAC STRESS [...] interpreted and reported in a separate dictation. [facility] Signed and Approved by: DR PADDY STANFORD 02/01/2022 09:17:00 Normal [facility] NM STRESS/REST MULTIon 01-25 NM STRESS/REST MULTI Patient: FUNMI JULIO Exam Date: 01/25/2022 : 1955 Gender:M Ordering : MARIANELA MOSQUEDAS Admission #: [id number] Family : Order #: [id number] CLICK HERE TO VIEW EXAM RADIOLOGY REPORT [...] M.D. on 01/26/2022 at 11:49 Normal [facility] BNPon 01-12-2022 NT PRO BNP <11.1 Normal <=900.0 [facility] Comment on above: Performed By: #### B MATCHER LEATHER PARTS, CMP, LIPID, CRP #### [facility] [address] [place] [address] Dr. Ramesh Min CBC AUTO DIFFon 01-12-2022 BASO # 0.1 103/ul Normal 0.0-0.1 [facility] Comment on above: Performed By: #### C BC #### [facility] [address] [place] [address] Dr. Ramesh Min Basophils/100 WBC (Bld) 0.5 % Normal 0.2-2.0 [facility] Comment on above: Performed By: #### C BC #### [facility] [address] [place] [address] Dr. Ramesh Min EO # 0.2 103/ul Normal 0.0-0.7 [facility] Comment on above: Performed By: #### C BC #### [facility] [address] [place] [address] Dr. Ramesh Min Eosinophils/100 WBC (Bld) 2.0 % Normal 0.9-7.0 [facility] Comment on above: Performed By: #### C BC #### [facility] [address] [place] [address] Dr. Ramesh Min Erythrocyte distribution width (RBC) [Ratio] 13.1 % Normal 11.0-15.0 [facility] Comment on above: Performed By: #### C BC #### [facility] [address] [place] [address] Dr. Ramesh Min Hematocrit (Bld) [Volume fraction] 44.2 % Normal 42.0-54.0 [facility] Comment on above: Performed By: #### C BC #### [facility] [address] [place] [address] Dr. Ramesh Min Hemoglobin (Bld) [Mass/Vol] 14.8 g/dL Normal 14.0-18.0 [facility] Comment on above: Performed By: #### C BC #### [facility] [address] [place] [address] Dr. Ramesh Min IG # 0.05 10e3/ul Critically high 0.00-0.03 [facility] Comment on above: Performed By: #### C BC #### [facility] [address] [place] [address] Dr. Ramesh Min IG % 0.5 % Normal 0.0-0.5 [facility] Comment on above: Performed By: #### C BC #### [facility] [address] [place] [address] Dr. Ramesh Min LYMPH # 2.4 103/ul Normal 1.2-3.8 [facility] Comment on above: Performed By: #### C BC #### [facility] [address] [place] [address] Dr. Ramesh Min Lymphocytes/100 WBC (Bld) 25.0 % Normal 20.5-60.0 [facility] Comment on above: Performed By: #### C BC #### [facility] [address] [place] [address] Dr. Ramesh Min MANUAL DIFF REQ NO Normal [facility] Comment on above: Performed By: #### C BC #### [facility] [address] [place] [address] Dr. Ramesh Min MCH (RBC) [Entitic mass] 30.5 pg Normal 25.9-34.0 [facility] Comment on above: Performed By: #### C BC #### [facility] [address] [place] [address] Dr. Ramesh Min MCHC (RBC) [Mass/Vol] 33.5 g/dL Normal 29.9-35.2 [facility] Comment on above: Performed By: #### C BC #### [facility] [address] [address] [address] Ramesh Min MCV (RBC) [Entitic vol] 91.1 fL Normal 80.0-94.0 [facility] Comment on above: Performed By: #### C BC #### [facility] [address] [address] [address] Ramesh Min MONO # 0.8 103/ul Normal 0.3-0.8 [facility] Comment on above: Performed By: #### C BC #### [facility] [address] [address] [address] Ramesh Min Monocytes/100 WBC (Bld) 8.8 % Normal 1.7-12.0 [facility] Comment on above: Performed By: #### C BC #### [facility] [address] [place] [address] Dr. Ramesh Min NEUT # 6.1 103/ul Normal 1.4-6.5 [facility] Comment on above: Performed By: #### C BC #### [facility] [address] [place] [address] Dr. Ramesh Min Neutrophils/100 WBC (Bld) 63.2 % Normal 43.0-75.0 [facility] Comment on above: Performed By: #### C BC #### [facility] [address] [address] [address] Ramesh Min Platelet mean volume (Bld) [Entitic vol] 8.7 fL Critically low 9.5-13.5 [facility] Comment on above: Performed By: #### C BC #### [facility] [address] [address] [address] Ramesh Min PLT 330 103/ul Normal 150-450 [facility] Comment on above: Performed By: #### C BC #### [facility] [address] [address] [address] Ramesh Min RBC 4.85 106/ul Normal 4.70-6.10 [facility] Comment on above: Performed By: #### C BC #### [facility] [address] [address] [address] Ramesh Min WBC 9.6 103/ul Normal 4.0-11.0 [facility] Comment on above: Performed By: #### C BC #### [facility] [id number] Ramesh Min CRPon 01-12-2022 CRP 0.7 mg/dL Normal <=1.0 [facility] Comment on above: Performed By: #### B MATCHER LEATHER [employer]S, CMP, LIPID, CRP #### [facility] [address] [address] [address] Ramesh Min ECHOCARDIO M/2D COMPLETEon 0 01-12-2022 ECHOCARDIO M/2D COMPLETE Patient: FUNMI JULIO Exam Date: 01/12/2022 : 1955 Gender:M Ordering : MARIANELA MCCULLOUGH Admission #: [id number] Family : Order #: [id number] CLICK HERE TO VIEW EXAM ECHOCARDIOGRAM REPORT [...] Thibodeaux M.D. on 01/13/2022 at 08:51 Normal [facility] GLYCOHEMOGLOBIN A1Con 2021 ADA RECOMMENDATION ADA THERAPEUTIC TARGET 6.0 - 7.0 ACTION SUGGESTED > 7.0 Normal [facility] Comment on above: Performed By: #### A 1C #### [facility] [address] [place] [address] Dr. Ramesh Min Glucose [Mass/Vol] 137 mg/dL Normal [facility] Comment on above: Performed By: #### A 1C #### [facility] [address] [address] [address] Ramesh Min HbA1c (Bld) [Mass fraction] 6.4 % Critically high <=6.0 [facility] Comment on above: Performed By: #### A 1C #### [facility] [address] [place] [address] Dr. Ramesh Min LIPID PROFILEon 01-12-2022 CHOL-HDL RATIO NORM SEE BELOW Normal [facility] Comment on above: Result Comment: 3.3 - 4.4 LOW RISK 4.4 - 7.1 AVERAGE RISK 7.1 - 11.0 MODERATE RISK >11.0 HIGH RISK Performed By: #### B M[employer], CMP, LIPID, CRP #### [facility] [address] [address] [address] Ramesh Min Cholesterol [Mass/Vol] 125 mg/dL Normal <=200 [facility] Comment on above: Performed By: #### B M[employer]ATH[employer]S, CMP, LIPID, CRP #### [facility] [address] [address] [address] Ramesh Min Cholesterol in HDL [Mass/Vol] 39 mg/dL Normal [facility] Comment on above: Performed By: #### B MATCH[employer]S, CMP, LIPID, CRP #### [facility] [address] [address] [address] Ramesh Min Cholesterol in LDL [Mass/Vol] 69.2 mg/dL Normal [facility] Comment on above: Performed By: #### B MATCHER [employer]S, CMP, LIPID, CRP #### [facility] [address] [address] [address] Ramesh Min Cholesterol.total/Cho lesterol in HDL [Mass ratio] 3.2 {ratio} Normal [facility] Comment on above: Performed By: #### B MATCHER [employer]S, CMP, LIPID, CRP #### [facility] [address] [address] [address] Ramesh Min HDL NORMAL > or = 60 mg/dl - LO W CARDIOVASCULAR RISK <40 mg/dl - HIGH CARDIOVASCULAR RISK Normal [facility] Comment on above: Performed By: #### B MATCH[employer]ER [employer]S, CMP, LIPID, CRP #### [facility] [address] [address] [address] Ramesh Min LDL CALC NORMAL SEE BELOW Normal [facility] Comment on above: Result Comment: <100 mg/dl OPTIMAL 100 - 129 mg/dl NEAR OR ABOVE OPTIMAL 130 - 159 mg/dl BORDERLINE HIGH 160 - 189 mg/dl HIGH >190 mg/dl VERY HIGH Performed By: #### B M[employer]S, CMP, LIPID, CRP #### [facility] [address] [address] [address] Ramesh Min Triglyceride [Mass/Vol] 84 mg/dL Normal <=150 [facility] Comment on above: Performed By: #### B MATCHER LEATHER [employer]S, CMP, LIPID, CRP #### [facility] [address] [address] [address] Ramesh Min VLDL CALC 16.8 mg/dL Normal [facility] Comment on above: Performed By: #### B MATCH[employer] LEATHER [employer]S, CMP, LIPID, CRP #### [facility] [address] [address] [address] Ramesh Min PROF 14(COMP METB)on 022 Albumin [Mass/Vol] 3.7 g/dL Normal 3.5-5.0 [facility] Comment on above: Performed By: #### B MATCHER LEATHER [employer]S, CMP, LIPID, CRP #### [facility] [address] [address] [address] Ramesh Min Albumin/Globulin [Mass ratio] 0.9 {ratio} Normal [facility] Comment on above: Performed By: #### B MATCHER LEATHER [employer]S, CMP, LIPID, CRP #### [facility] [address] [address] [address] Ramesh Min ALP [Catalytic activity/Vol] 75 U/L Normal 38-126 [facility] Comment on above: Performed By: #### B MATCHER LEATHER [employer]S, CMP, LIPID, CRP #### [facility] [address] [address] [address] Ramesh Min ALT [Catalytic activity/Vol] 33 U/L Normal 21-72 [facility] Comment on above: Performed By: #### B MATCHER LEATHER [employer]S, CMP, LIPID, CRP #### [facility] [address] [address] [address] Ramesh Min Anion gap [Moles/Vol] 10.8 mmol/L Normal [facility] Comment on above: Performed By: #### B MATCHER LEATHER [employer]S, CMP, LIPID, CRP #### [facility] [address] [address] [address] Ramesh Min AST [Catalytic activity/Vol] 15 U/L Critically low 17-59 [facility] Comment on above: Performed By: #### B MATCHER [employer]ER [employer]S, CMP, LIPID, CRP #### [facility] [address] [address] [address] Ramesh Min Bilirubin [Mass/Vol] 0.3 mg/dL Normal 0.2-1.3 [facility] Comment on above: Performed By: #### B MATCHER [employer]ER [employer]S, CMP, LIPID, CRP #### [facility] [address] [place] [address] Dr. Ramesh Min Calcium [Mass/Vol] 9.5 mg/dL Normal 8.4-10.2 [facility] Comment on above: Performed By: #### B MATCHER LEATHER [employer]S, CMP, LIPID, CRP #### [facility] [address] [place] [address] Dr. Ramesh Min Chloride [Moles/Vol] 103 mmol/L Normal 98-107 [facility] Comment on above: Performed By: #### B MATCHER LEATHER [employer]S, CMP, LIPID, CRP #### [facility] [address] [place] [address] Dr. Ramesh Min CO2 [Moles/Vol] 28.4 mmol/L Normal 22.0-30.0 [facility] Comment on above: Performed By: #### B MATCHER LEATHER [employer]S, CMP, LIPID, CRP #### [facility] [address] [place] [address] Dr. Ramesh Min Creatinine [Mass/Vol] 0.92 mg/dL Normal 0.66-1.25 [facility] Comment on above: Performed By: #### B MATCHER LEATHER [employer]S, CMP, LIPID, CRP #### [facility] [address] [place] [address] Dr. Ramesh Min EGFR-AF [place] >60 Normal >=60 [facility] Comment on above: Performed By: #### B MATCHER LEATHER [employer]S, CMP, LIPID, CRP #### [facility] [address] [place] [address] Dr. Ramesh Min EGFR-NON AF [place] >60 Normal >=60 [facility] Comment on above: Performed By: #### B MATCHER LEATHER [employer]S, CMP, LIPID, CRP #### [facility] [address] [place] [address] Dr. Ramesh Min Globulin (S) [Mass/Vol] 4.1 g/dL Normal [facility] Comment on above: Performed By: #### B MATCHER LEATHER [employer]S, CMP, LIPID, CRP #### [facility] [address] [address] [address] Ramesh Min Glucose [Mass/Vol] 104 mg/dL Normal 74-106 [facility] Comment on above: Performed By: #### B MATCHER LEATHER [employer]S, CMP, LIPID, CRP #### [facility] [address] [address] [address] Ramesh Min Potassium [Moles/Vol] 4.2 mmol/L Normal 3.4-5.0 [facility] Comment on above: Performed By: #### B MATCHER LEATHER [employer]S, CMP, LIPID, CRP #### [facility] [address] [address] [address] Ramesh Min Protein [Mass/Vol] 7.8 g/dL Normal 6.1-8.2 [facility] Comment on above: Performed By: #### B MATCHER LEATHER [employer]S, CMP, LIPID, CRP #### [facility] [address] [place] [address] Dr. Ramesh Min Sodium [Moles/Vol] 138 mmol/L Normal 137-145 [facility] Comment on above: Performed By: #### B MATCHER LEATHER [employer]S, CMP, LIPID, CRP #### [facility] [address] [address] [address] Ramesh Min Urea nitrogen [Mass/Vol] 18.0 mg/dL Normal 9.0-20.0 [facility] Comment on above: Performed By: #### B MATCHER LEATHER [employer]S, CMP, LIPID, CRP #### [facility] [address] [address] [address] Ramesh Min Urea nitrogen/Creatinine [Mass ratio] 19.6 mg/mg Normal [facility] Comment on above: Performed By: #### B MATCHER LEATHER [employer]S, CMP, LIPID, CRP #### [facility] [address] [address] [address] Ramesh Min SED RATE [facility] 2021 SED RATE 20 mm/hr Normal <=20 [facility] Comment on above: Performed By: #### S EDR #### [facility] [address] [address] [address] Ramesh Min Vital Signs Date Time Vital Sign Value Performing Clinician Faci lity 04-16-2024 15:18-0400 Blood Pressure Location Funmi VICTORL [facility] [place] 04-16-2024 15:18-0400 Diastolic blood pressure 92 mm[Hg] Funmi NILL [facility] [place] 04-16-2024 15:18-0400 Heart rate 76 /min Funmi NILL [facility] [place] 04-16-2024 15:18-0400 Respiratory rate 16 /min Funmi NILL [facility] [place] 04-16-2024 15:18-0400 Systolic blood pressure 140 mm[Hg] Funmi NILL [facility] [place] Encounters Encounter Date Encounter Type Care Provider Facility Start: 07-08-2024 End: 07-08-2024 ambulatory TANIA GUSMAN Not Available Start: 05-29-2024 End: 05-29-2024 ambulatory Funmi Danielle MARTÍN Facility:[id number] Start: 05-23-2024 End: 05-23-2024 ambulatory SHAIKH TIFFANIE Not Available Start: 04-16-2024 End: 04-16-2024 [facility] Start: 04-16-2024 End: 04-16-2024 Patient encounter procedure Funmi Danielle MARTÍN [facility] [place] Start: 03-22-2024 End: 03-22-2024 ambulatory [facility] Start: 03-14-2024 End: 03-14-2024 ambulatory MARTIR DURHAM Not Available Start: 02-21-2024 End: 02-21-2024 ambulatory MERCEDES FAWWAD Not Available Start: 01-25-2024 End: 01-25-2024 ambulatory MERCDEES FAWWAD Not Available Start: 11-16-2023 End: 11-16-2023 ambulatory MERCEDES FAWWAD Not Available Start: 08-31-2023 End: 08-31-[address] [facility] Start: 08-04-2023 ambulatory Funmi R NILL Facility :[facility] Start: 07-21-2023 ambulatory Funmi NILL Facility:[facility] Start: 07-03-2022 ambulatory MARIANELA MCCULLOUGH Facility:[facility] Start: 01-26-2022 ambulatory MARIANELA MCCULLOUGH Facility:[facility] Start: 01-25-2022 End: 01-26-2022 ambulatory MARIANELA MCCULLOUGH Facility:[facility] Start: 01-12-2022 End: 01-13-2022 ambulatory MARIANELA MCCULLOUGH Facility:[facility] Procedures Date Procedure Procedure Detail Performing Clinician Start: 04-08-2014 Colonoscopy Funmi NI LL Cardiac catheterization Isma aeheather NILL Repair of umbilical hernia M ichael NILL Tonsillectomy and adenoidectomy Funmi NILL Immunizations Immunization Date Immunization Notes Care Provider Fa [facility] 09-28-2023 influenza virus vaccine, unspecified formulation Funmi NILL [facility] 10-23-2021 SARS-CoV-2 (COVID-19 ) mRNA-1273 vaccine Funmi NILL [facility] 03-06-2021 SARS-CoV-2 (COVID-19 ) mRNA-1273 vaccine Funmi NILL [facility] 02-06-2021 SARS-CoV-2 (COVID-19 ) mRNA-1273 vaccine Funmi NILL [facility] Payers Date Payer Category Payer Medicare [id number] 1957 Private Health Insurance [facility] [id number] Private Health Insurance [facility] [id number] 1957 Self-pay 1955 Unknown [id number] 2.16.84 [id number] 1955 Unknown [id number] 2.16.84 [id number] 1955 Unknown [id number] 2.16.84 [id number] 1955 Unknown [id number] 2.16.84 0.1.341908.3.579.2.593 1955 Unknown [id number] 2.16.8 40.1.396119.3.579.2.727 1955 Unknown [id number] 2.16.8 40.1.519457.3.579.2.727 1955 Unknown [id number] 2.16.8 40.1.318576.3.579.2.727 1955 Unknown [id number] 2.16.84 0.1.554357.3.579.2.1259 1955 Unknown [id number] 2.16.84 0.1.865954.3.579.2.1259 1955 Unknown [id number] 2.16.84 0.1.707125.3.579.2.1259 1955 Unknown [id number] 2.16.84 0.1.991567.3.579.2.1259 1955 Unknown [id number] 2.16.84 0.1.095528.3.579.2.1259 1955 Unknown [id number] 2.16.840 .1.499495.3.579.2.1259 Social History Date Type Detail Facility Start: 04-16-2024 Tobacco smoking status Ex-smoker (fi nding) [facility] Tobacco smoking status Smokeless tobacco user within last 30 days [facility] Sex Assigned At Male [facility] Functional Status Date Assessment Result Facility 04-16-2024 Functional Status N/A [facility] Clinical Note 04-16-2024 Note Date & Type [...] Primary oscar (more content not included)... [facility] Comment on above: Result Comment: Elec tronically Signed By: MARTÍN PARISH, Funmi Santos\.br\Date and Time Signed: 04/16/24 16:19 EDT Progress note 03-22-2024 Note Date & Type Note Facility 03-22-2024 Note [place] [facility] Subjective Funmi Julio is a 68 [...] complication, without long-term current use of insulin ([facility]) Family History Problem Relation Name Age of [...] that time he had ran out of Boufr and this was refilled. His blood pressure [...] that they are referring him to a fondant puff maker for follow-up. Review of Systems Cardiovascular: Positive [...] in the morni (more content not included)... [facility] Progress note 08-31-2023 Note Date & Type [...] All other systems reviewed and are negative. [facility] Progress note 08-31-2023 Note Date & Type Note Facility 08-31-2023 Note [facility] SUBJECTIVE Chief Complaint Patient presents with [...] complication, without long-term current use of insulin ([facility]) Past Medical History: Diagnosis Date Coronary artery disease Diabetes mellitus ([facility]) Hyperlipidemia Hypertension Sleep apnea Family History [...] Echocardiogram from 01/12/2022 (more content not included)... [facility] Evaluation + Plan note Note Date & Type Note Facility Evaluation + Plan note No data available for this section [facility] Hospital Discharge instructions Note Date & Type Note Facility Hospital Discharge instructions No data available for this section [facility] Progress note Note Date & Type Note Facility Progress note No data available for this section [facility] Summary Purpose Family History No Family History [...] and content) DATE CREATED AUTHOR 07/03/2022 [facility] DATE CREATED AUTHOR AUTHOR'S ORGANIZ ATION 03/24/2024 [facility] DATE CREATED AUTHOR AUTHOR'S ORGANIZ ATION 06/12/2024 [facility] DATE CREATED AUTHOR AUTHOR'S ORGANIZ ATION 07/10/[address] [facility] EPIC Patient Care team informatio n (unrecognized section and content) Personnel Name: SHAIKH MORENO MD Address: Address: [address] [place] [address] FOR RECORDS PERTAINING TO PATIENTS WHO ARE [...] BE BASED ON THE PRIMARY CLINICAL RECORDS. [employer] [facility]. provides no warranty or guarantee of the accuracy or completeness of information in this document.
[2024-07-15 09:12] LABS: Alanine Aminotransferase 58 U/L (16-63); Albumin Level 3.6 g/dL (3.4-5.0); Alkaline Phosphatase 58 U/L (46-116); Anion Gap 12.8; Aspartate Amino Transferase 27 U/L (15-37); BUN Creatinine Ratio 9.2; Bilirubin Total 0.5 mg/dL (0.2-1.0); Calcium 9.2 mg/dL (8.5-10.1); Carbon Dioxide 28.2 mmol/L (21.0-32.0); Chloride 99 mmol/L (98-107); Estimated GFR (African America >60 (>=60); Estimated GFR (Non-African Ame >60 (>=60); Globulin 3.7 g/dL; Glucose 123 mg/dL (74-106); Sodium 136 mmol/L (136-145); Total Protein 7.3 g/dL (6.4-8.2)
[2024-07-15 10:25] LABS: Estimated Average Glucose 134 mg/dL; Glycohemoglobin A1C 6.3 % (4.5-6.2)
== END 2024-07-15 08:20 | disposition home or self-care (01) ==
LOC: LAB 08:20
PROVIDERS: PCP Internal Medicine; Visit Provider Internal Medicine
DX: G31.84 Mild cognitive impairment of uncertain or unknown etiology (principal); E11.9 Type 2 diabetes mellitus without complications; I10 Essential (primary) hypertension
CPT/HCPCS: 36415; 80053; 82607; 83036; 84443

== ENCOUNTER 2024-09-03 08:06 | Outpatient (OUT) | payer MEDICARE, SELFPAY ==
--- OUTSIDE RECORDS SUMMARY | 2024-09-03 08:21 | XMS_ITS | CCD ---
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 Name Role Phone SADIA, MARIANELA Admitting Unavailable [...] Primary Care Unavailable JOYCE CANTRELL Attending Unavailable RONDA THIBODEAUX Attending Unavailable SHAIKH MORENO Primary Care Physician [phone] SHAIKH MORENO Attending Unavailable SHAIKH MORENO Attending Unavailable MARTIR DURHAM Attending Unavailable SHAIKH MORENO Referring Unavailable SHAIKH MORENO Attending Unavailable TANIA GUSMAN Attending Unavailable TAMMY HARDY Attending UnavailSHREE Braxton Attending Unavailable TANIA GUSMAN Referring Unavailable SHAIKH MORENO Attending Unavailable ERWIN TIPTON Attending Unavailable LIT BARILLAS Referring Unavailable Funmi RESENDIZ Attending Unavailable Funmi RESENDIZ Attending Unavailable TAMMY HARDY Primary Care UnavailTania Lawrence Attending Unavailable TAMMY HARDY Referring UnavailTAMMY Harrell Primary Care UnavailTania Lawrence Attending Unavailable Allergies Allergy Classification Reported Allergen(s) Allergy Type Date of Onset Reaction(s) Facility (1 source) oxyCODONE Drug Allergy 2 [facility] Repository (4 sources) oxyCODONE; Translations: [OXYCODONE] Drug Allergy 2 Dyspnea (finding), Weal (disorder) [facility] Repository Medications Current Medications Medication Drug Class(es) Dates Sig (Normalized) Sig (Original) amLODIPine 10 mg oral tablet (2 sources) Dihydropyridine Calcium Channel Zach Start: 03-20-2024 take 1 tablet by mouth once daily amLODIPine 10 mg Tab 10 mg = 1 tab(s), Oral, Daily, Refills(s) 0 Start Date: 03/20/24 Status: Ordered aspirin 81 mg chewable tablet (2 sources) Platelet Aggregation Inhibitor, Nonsteroidal Anti-inflammatory Drug Start: 03-20-2024 aspirin 81 mg Chew Tab 81 mg = 1 tab(s), Chewed, Daily, Refills(s) 0 Start Date: 03/20/24 Status: Ordered hydroCHLOROthiazide 12.5 mg / lisinopril 20 mg oral tablet (2 sources) Thiazide Diuretic, Angiotensin Converting Enzyme Inhibitor Start: 03-20-2024 take 1 tablet by mouth twice daily hydrochlorothia zide-lisinopril 12.5 mg-20 mg Tab 1 tab(s), Oral, BID, Refill(s) 0 Start Date: 03/20/24 Status: Ordered 24 hr isosorbide mononitrate 60 mg extended release oral tablet (2 sources) Nitrate Vasodilator Start: 03-20-2024 take 1 tablet by mouth once daily in the morning isosorbide mononitrate 60 mg ER Tab 60 mg = 1 tab(s), Oral, qAM, Refills(s) 0 Start Date: 03/20/24 Status: Ordered metFORMIN hydrochloride 850 mg oral tablet (2 sources) Biguanide Start: 03-20-2024 take 1 tablet by mouth once daily in the morning metformin 850 mg Tab 850 mg = 1 tab(s), Oral, qAM, Refills(s) 0 Start Date: 03/20/24 Status: Ordered 24 hr metoprolol succinate 100 mg extended release oral tablet (2 sources) beta-Adrenergic Zach Start: 03-20-2024 take 1 tablet by mouth once daily metoprolol 100 mg ER Tab 100 mg = 1 tab(s), Oral, Daily, Refills(s) 0 Start Date: 03/20/24 Status: Ordered omeprazole 20 mg delayed release oral capsule (2 sources) Proton Pump Inhibitor Start: 03-20-2024 take 1 capsule by mouth once daily omeprazole 20 mg Cap-DR 20 mg = 1 cap(s), Oral, Daily, Refills(s) 0 Start Date: 03/20/24 Status: Ordered PARoxetine hydrochloride 40 mg oral tablet (2 sources) Serotonin Reuptake Inhibitor Start: 03-20-2024 take 1 tablet by mouth once daily Paxil 40 mg Tab 40 mg = 1 tab(s), Oral, Daily, Refills(s) 0 Start Date: 03/20/24 Status: Ordered Problems Active Problems Problem Classification Problem Date Documented Date Episodic/Chronic Coronary atherosclerosis and other heart disease (8 sources) Atherosclerotic heart disease of [place] coronary artery without angina pectoris; Translations: [Coronary arteriosclerosis] Onset: 01-12-2022 Chronic Deficiency and other anemia (2 sources) Anemia 03-20-2024 Episodic Diabetes mellitus without complication (2 sources) Diabetes mellitus 03-20-2024 Chronic Disorders of lipid metabolism (4 sources) Mixed hyperlipidemia; Translations: [Dyslipidemia] Onset: 11-13-2020 Chronic Esophageal disorders (2 sources) Gastroesophageal reflux disease Onset: 11-13-2020 03-20-2024 Chronic Essential hypertension (4 sources) Essential (primary) hypertension; Translations: [Benign essential hypertension] Onset: 07-20-2022 Chronic Mood disorders (2 sources) Depressive disorder 03-20-2024 Chronic Other nutritional; endocrine; and metabolic disorders (1 source) Morbid obesity; Translations: [Morbid (severe) obesity due to excess calories] Onset: 04-16-2024 Chronic Other nutritional; endocrine; and metabolic disorders (2 sources) Body mass index 40+ - severely obese 04-16-2024 Chronic Other nutritional; endocrine; and metabolic disorders (2 sources) Obese class III 03-20-2024 Chronic Other screening for suspected conditions (not mental disorders or infectious disease) (1 source) Screening for malignant neoplasm of colon done; Translations: [Encounter for screening for malignant neoplasm of colon] Onset: 04-16-2024 Episodic Unclassified (2 sources) Patient encounter status 04-16-2024 Past or Other Problems Problem Classification Problem Date Documented Da te Episodic/Chronic Diabetes mellitus without complication (1 source) Prediabetes; Translations: [PREDIABETES] Onset: 01-14-2022 Episodic Other lower respiratory disease (5 sources) Other forms of dyspnea; Translations: [OTHER FORMS OF DYSPNEA] Onset: 01-14-2022 Episodic Results Test Name Value Interpretation Reference Range Facility Ambulatory Visit Summaryon 1 Ambulatory Visit Summary Ambulatory Visit Summary FUNMI JULIO :1955 Visit Date:08/28/2024 Ambulatory Visit Instructions Your Diagnosis ED (erectile dysfunction) Low libido Acquired buried penis Screening PSA (prostate specific antigen) Your Care Team Attending Physician - Tania Mariscal MD Primary Care Physician - MS. TAMMY HARDY Referring Physician - MS. TAMMY HARDY This Is Your Medications List Contact prescribing physician if questions or concerns albuterol (Albuterol (Eqv-Ventolin HFA) 90 mcg/inh inhalation aerosol) amlodipine (amLODIPine 10 mg Tab) aspirin (aspirin 81 mg Chew Tab) atorvastatin (atorvastatin 40 mg Tab) fexofenadine (fexofenadine 180 mg Tab) hydrochlorothiazide-l isinopril (hydrochlorothiazide- lisinopril 12.5 mg-20 mg Tab) isosorbide mononitrate (isosorbide mononitrate 60 mg ER Tab) metformin (metformin 850 mg Tab) metoprolol (metoprolol 100 mg ER Tab) omeprazole (omeprazole 20 mg Cap-DR) paroxetine (Paxil 40 mg Tab) semaglutide (Ozempic 2 mg/3 mL (0.25 mg or 0.5 mg dose) subcutaneous solution) Procedures Performed Colonoscopy (05/29/2024), Colonoscopy (04/08/2014), Cardiac catheterization, Repair of umbilical hernia, Tonsillectomy and adenoidectomy. Discharge Vitals Heart Rate (Peripheral) 83 Respiratory Rate 16 Blood Pressure 138/72 Height 182 cm Height 72 in Weight 139 kg Weight 305.8 lb BMI 41.96 What to do next Scheduled Follow-Up Appointments Monday 9:45 AM EDT With: Tania Mariscal MD Where: [facility] [address] [place] [address]- You Need to Schedule the Following Appointments Follow Up with Davey PARISH, Tania Angel, URHeather, URO When: Where: [address], [place] [address]- [phone] Medications What How Much When Instructions Unchanged albuterol (Albuterol (Eqv-Ventolin HFA) 90 mcg/ inh inhalation aerosol) 2 Puffs Inhalation Every 4 hours Contact prescribing physician if questions or concerns Unchanged amlodipine (amLODIPine 10 mg Tab) 1 Tablets By Mouth Every day Contact prescribing physician if questions or concerns Unchanged aspirin (aspirin 81 mg Chew Tab) 1 Tablets Chewed Every day Contact prescribing physician if questions or concerns Unchanged atorvastatin (atorvastatin 40 mg Tab) 1 Tablets By Mouth Every day Contact prescribing physician if questions or concerns Unchanged fexofenadine (fexofenadine 180 mg Tab) 0 Refill(s) Contact prescribing physician if questions or concerns [...] prescribing physician if questions or concerns Unchanged semaglutide (Ozempic 2 mg/ 3 mL (0.25 mg or 0.5 mg dose) subcutaneous solution) 0.5 Milligram Subcutaneous Every week Contact prescribing physician if questions or concerns Allergies oxyCODONE (SOB - Shortness of breath, Hives) Problems Ongoing - Any problem that you are currently receiving treatment for. Acquired buried penis Anemia Benign essential hypertension BMI 40.0-44.9, adult Calcified granuloma of lung Class 3 obesity Coronary arteriosclerosis Depressive disorder Diabetes Dyslipidemia ED (erectile dysfunction) Gastroesophageal reflux disease Hyperlipidemia Hypertensive disorder Impaired fasting glycemia Low libido Obstructive sleep apnea syndrome Screening for malignant neoplasm of colon Type 2 diabetes mellitus Umbilical hernia Patient Survey You may receive a survey via text or e-mail asking about your office visit. Please share your experience with us by completing your survey. We appreciate your feedback and thank you for choosing us for your care. Education Materials Erectile Dysfunction Erectile dysfunction (ED) is the inability to get or keep an erection in order to have sexual intercourse. ED is considered a symptom of an underlying disorder and is not considered a disease. ED may include: ? Inability to get an erection. ? Lack of enough hardness of the erection to allow penetration. ? Loss of erection before sex is finished. What are the cau (more content not included)... Normal [facility] Urology Office/Clinic Noteon 08-28-2024 Urology Office/Clinic Note Urology Office/Clinic Note Chief Complaint New patient acquired buried penis HPI Staff 68 year old male new patient referred by Tammy Hardy NP for acquired buried penis. Hemoglobin A1c 07/15/24: 6.3 PSA: 12/30/20-1.21 07/12/22-1.20 IPSS: 9 Dysuria: denies Incomplete bladder emptying: denies Hematuria: denies Frequency: denies Urgency: yes Nocturia: once a night Stream: denies hesitancy, sometimes weak stream Leaking: once in a while Post void dripping: denies Wearing pads/ Depends: denies Urge incontinence: denies Stress incontinence: denies Incontinence without Sensory Awareness: denies Abdominal pain: denies Flank pain: denies Sexual complaints: _ History of Present Illness Tests reviewed: reviewed UA, referral records, A1c, PSAs I have reviewed the previous health record information and history for this patient from external providers. I have reviewed and verified the staff HPI to be accurate for this encounter. Review of Systems PHQ Score Initial Depression Screen Score: 0 SCORE ROS - Provider Constitutional: denies weight loss, denies hot flashes. Eyes: denies eye problems. Gastrointestinal: denies nausea, denies vomiting. Cardiovascular: denies chest pain or angina. Integumentary: no dryness Musculoskeletal: denies musculoskeletal symptoms. ENMT: denies otolaryngeal symptoms. Respiratory: no shortness of breath. Heme/Lymph: denies easy bleeding tendency, denies easy bruising tendency. Psychiatric: no confusion, no anxiety. Genitourinary: See HPI. Physical Exam Vitals & Measurements HR: 83(Peripheral) RR: 16 BP: 138/72 HT: 72 in HT: 182 cm WT: 139 kg WT: 305.8 lb BMI: 41.96 General Appearance: alert, no distress, well nourished, well developed male. Head: normocephalic . Eyes: normal orbit and globe. ENMT: normal examination of external ears. Chest: symmetric chest rise, respirations non labored. Cardiovascular: regular rate and rhythm. Abdomen: soft, non distended, no tenderness Genitourinary: normal scrotum, normal testes, normal urethra, normal epididymis, normal vas deferens/spermatic cord. no hernias palpable Flank Pain: none. Bladder: nonpalpable. Penis: normal shaft, bruising on left glans. moderately buried phallus. circumcised. prominent suprapubic fat pad Skin: warm, dry, no bruising. Psychiatric: cooperative, affect appropriate for age, normal judgement, euthymic mood. Assessment/Plan Funmi is a 68 yo male new pt referred by Tammy Hardy NP for acquired buried penis. IPSS 9. UA today negative for blood and infection. Not taking any prostate meds. No bother with urination. 1. ED (erectile dysfunction) (N52.9: Male erectile dysfunction, unspecified) JAVAN -1 Thinks he has tried Sildenafil 50mg in the distant past. Worked well wo SEs previously but now shares medication takes hours to be effective. Discussed switching to Tadalafil given longer lasting. Educated pt on contraindication with nitro products. Possible SEs discussed. Pt wishes to try this. -However, pt medication review shows isosorbide mononitrate daily, pt unable to take PDE5i. -Consider ICI or NAVI - information provided -DM control, cont following w/ PCP -Heart healthy diet, weight loss 2. Low libido (R68.82: Decreased libido) Does not have good libido. Discussed low testosterone contributing to ED. Offered to check level which pt is agreeable to. We discussed risk factors of hypogonadism including age, DM, metabolic syndrome, chronic renal insufficiency, COPD, HIV, obesity, chronic opioid use, chronic steroid exposure, testicular injury and varicocele. Associated symptoms include ED, low libido, infertility, fatigue, anemia, increased body fat, gynecomastia, reduced body hair/muscle mass, mood disturbances, and decreased bone mineral density. Patient would like to proceed with workup: -Will obtain morning serum testosterone (7-11 AM). Plans to go to [facility]. -If low, will confirm with repeat T, LH, prolactin, estradiol -If prolactin is elevated, will obtain repeat and if still elevated, obtain brain and pituitary MRI to check for prolactinoma and refer to endocrinology 3. 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 Reports he was circumcised. Only complaint with urination is difficulty controlling stream. Shares DM was uncontrolled when this first start. Most recent A1c 07/15/24 - 6.3. Has gained 45 lbs since retiring in Nov 2022. Educated pt on this is related to excessive tissue. Discussed operative intervention and risks/benefits. Advised pt this is not recommended. Pt admits this is not of concern, primary concern was ED. -DM control, cont following w/ PCP -Heart healthy diet, weight loss 4. Screening PSA (prostate specific antigen) (Z12.5: Encounter for screening for malignant neoplasm of prostate) PSA 12/30/20 - 1.21 07/12/22 - 1.20 PCP checks PSA which is low. Risks of elevat (more content not included)... Normal [facility] Comment on above: Result Comment: Elec tronically Signed By: Davey PARISH, Tania Angel\.br\Date and Time Signed: 08/28/24 11:36 EDT Reminderson 05-31-2024 Reminders Reminders From: Tracy Walls LPN To: GSN - Clinical; Sent: 05/31/2024 09:11:26 EDT Show up: 04/29/2034 07:00:00 EDT Subject: colonoscopy recall Due Date/Time: 05/29/2034 07:00:00 EDT Reminder/Recall Patient due for screening colonoscopy 05/29/2034. [facility] Insurance Correspondenceon 0 05-17-2024 Insurance Correspondence [id number]# 1.00TIFF [facility] Consent for Procedure/Surger yokemar 04-18-2024 Consent for Procedure/Surgery [id number]#1. 00TIFF Normal [facility] Facesheeton 04-17-2024 Facesheet [id number]# 1.00TIFF Normal [facility] Ambulatory Visit Summaryon 0 04-16-2024 Ambulatory Visit Summary FUNMI JULIO A :1955 Visit Date:04/16/2024 Ambulatory Visit Instructions Your Diagnosis Screening for malignant neoplasm of colon Class 3 obesity Your Care Team Attending Physician - MARTÍN PARISH, Funmi Santos Primary Care Physician - TIFFANIE PARISH, [facility] Referring Physician - ERAN PARISH, LIT This [...] for choosing us for your care. Normal [facility] Office Visiton 03-22-2024 Follow-up visit [id number] Funmi Julio 1955 [facility] Provider Department Center 03/22/2024 RONDA MÉNDEZ EVIE Flores Family History Problem Relation Age of Onset Hypertension Brother Heart attack Other Family Status - Relation Status Age at Brother Other Level of Service:33284 OR OFFICE/OUTPATIENT ESTABLISHED LOW MDM 20 MIN Reason for Visit and Comments: Follow-up [389221] - 6 month Normal [facility] 36on 09-15-2023 36 BP looks better. Continue all his current BP medications. Recommend he continues to monitor his BP a couple times a week and let us know if consistently runs elevated. Plan to follow-up in 6 months as planned or sooner if needed. Thanks! Normal [facility] Office Visiton 08-31-2023 Follow-up visit [id number] Funmi Julio 1955 [facility] Provider Department Center 08/31/2023 JOYCE RICKETTS EVIE Flores Family History Problem Relation Age of Onset Hypertension Brother Heart attack Other Family Status - Relation Status Age at Brother Other Level of Service:78145 OR OFFICE/OUTPATIENT ESTABLISHED LOW MDM 20-29 MIN Reason for Visit and Comments: Coronary Artery Disease [187] Hypertension [036013] Hyperlipidemia [182] Normal [facility] CARDIAC STRESS TESTon 2021 CARDIAC [...] interpreted and reported in a separate dictation. [facility] Signed and Approved by: DR PADDY STANFORD 02/01/2022 09:17:00 Normal [facility] NM STRESS/REST MULTIon 01-25 NM STRESS/REST MULTI Patient: FUNMI JULIO Exam Date: 01/25/2022 : 1955 Gender:M Ordering : MARIANELA MCCULLOUGH Admission #: [id number] Family : Order #: [id number] CLICK HERE TO VIEW EXAM RADIOLOGY REPORT [...] M.D. on 01/26/2022 at 11:49 Normal [facility] BNPon 01-12-2022 NT PRO BNP <11.1 Normal <=900.0 [facility] Comment on above: Performed By: #### B SENIOR ENGINEERING TECH, CMP, LIPID, CRP #### [facility] [address] [address] [address] Ramesh Min CBC AUTO DIFFon 01-12-2022 BASO # 0.1 103/ul Normal 0.0-0.1 [facility] Comment on above: Performed By: #### C BC #### [facility] [address] [place] [address] Dr. Ramesh Min Basophils/100 WBC (Bld) 0.5 % Normal 0.2-2.0 [facility] Comment on above: Performed By: #### C BC #### [facility] [address] [address] [address] Ramesh Min EO # 0.2 103/ul Normal 0.0-0.7 [facility] Comment on above: Performed By: #### C BC #### [facility] [address] [place] [address] Dr. Ramesh Min Eosinophils/100 WBC (Bld) 2.0 % Normal 0.9-7.0 [facility] Comment on above: Performed By: #### C BC #### [facility] [address] [place] [address] Dr. Ramesh Min Erythrocyte distribution width (RBC) [Ratio] 13.1 % Normal 11.0-15.0 [facility] Comment on above: Performed By: #### C BC #### [facility] [address] [place] [address] Dr. Ramesh Min Hematocrit (Bld) [Volume fraction] 44.2 % Normal 42.0-54.0 [facility] Comment on above: Performed By: #### C BC #### [facility] [address] [place] [address] Dr. Ramesh Min Hemoglobin (Bld) [Mass/Vol] 14.8 g/dL Normal 14.0-18.0 [facility] Comment on above: Performed By: #### C BC #### [facility] [address] [place] [address] Dr. Ramesh Min IG # 0.05 10e3/ul Critically high 0.00-0.03 [facility] Comment on above: Performed By: #### C BC #### [facility] [address] [place] [address] Dr. Ramesh Min IG % 0.5 % Normal 0.0-0.5 [facility] Comment on above: Performed By: #### C BC #### [facility] [address] [place] [address] Dr. Ramesh Min LYMPH # 2.4 103/ul Normal 1.2-3.8 [facility] Comment on above: Performed By: #### C BC #### [facility] [address] [place] [address] Dr. Ramesh Min Lymphocytes/100 WBC (Bld) 25.0 % Normal 20.5-60.0 [facility] Comment on above: Performed By: #### C BC #### [facility] [address] [place] [address] Dr. Ramesh Min MANUAL DIFF REQ NO Normal [facility] Comment on above: Performed By: #### C BC #### [facility] [address] [place] [address] Dr. Ramesh Min MCH (RBC) [Entitic mass] 30.5 pg Normal 25.9-34.0 [facility] Comment on above: Performed By: #### C BC #### [facility] [address] [place] [address] Dr. Ramesh Min MCHC (RBC) [Mass/Vol] 33.5 g/dL Normal 29.9-35.2 [facility] Comment on above: Performed By: #### C BC #### [facility] [address] [place] [address] Dr. Ramesh Min MCV (RBC) [Entitic vol] 91.1 fL Normal 80.0-94.0 [facility] Comment on above: Performed By: #### C BC #### [facility] [address] [place] [address] Dr. Ramesh Min MONO # 0.8 103/ul Normal 0.3-0.8 [facility] Comment on above: Performed By: #### C BC #### [facility] [address] [place] [address] Dr. Ramesh Min Monocytes/100 WBC (Bld) 8.8 % Normal 1.7-12.0 [facility] Comment on above: Performed By: #### C BC #### [facility] [address] [place] [address] Dr. Ramesh Min NEUT # 6.1 103/ul Normal 1.4-6.5 [facility] Comment on above: Performed By: #### C BC #### [facility] [address] [place] [address] Dr. Ramesh Min Neutrophils/100 WBC (Bld) 63.2 % Normal 43.0-75.0 [facility] Comment on above: Performed By: #### C BC #### [facility] [address] [place] [address] Dr. Ramesh Min Platelet mean volume (Bld) [Entitic vol] 8.7 fL Critically low 9.5-13.5 [facility] Comment on above: Performed By: #### C BC #### [facility] [address] [place], [place] [address] Dr. Ramesh Min PLT 330 103/ul Normal 150-450 [facility] Comment on above: Performed By: #### C BC #### [facility] [address] [place], [place] [address] Dr. Ramesh Min RBC 4.85 106/ul Normal 4.70-6.10 [facility] Comment on above: Performed By: #### C BC #### [facility] [address] [place], [place] [address] Dr. Ramesh Min WBC 9.6 103/ul Normal 4.0-11.0 [facility] Comment on above: Performed By: #### C BC #### [facility] [address] [address] [address] Ramesh Min CRPon 01-12-2022 CRP 0.7 mg/dL Normal <=1.0 [facility] Comment on above: Performed By: #### B SENIOR ENGINEERING TECH, CMP, LIPID, CRP #### [facility] [id number] Ramesh Min ECHOCARDIO M/2D COMPLETEon 0 01-12-2022 ECHOCARDIO M/2D COMPLETE Patient: FUNMI JULIO Exam Date: 01/12/2022 : 1955 Gender:M Ordering : MARIANELA MCCULLOUGH Admission #: [id number] Family : Order #: [id number] CLICK HERE TO VIEW EXAM ECHOCARDIOGRAM REPORT [...] Thibodeaux M.D. on 01/13/2022 at 08:51 Normal [facility] GLYCOHEMOGLOBIN A1Con 2021 ADA RECOMMENDATION ADA THERAPEUTIC TARGET 6.0 - 7.0 ACTION SUGGESTED > 7.0 Normal [facility] Comment on above: Performed By: #### A 1C #### [facility] [address] [place], [place] [address] Dr. Ramesh Min Glucose [Mass/Vol] 137 mg/dL Normal [facility] Comment on above: Performed By: #### A 1C #### [facility] [address] [place], [place] [address] Dr. Ramesh Min HbA1c (Bld) [Mass fraction] 6.4 % Critically high <=6.0 [facility] Comment on above: Performed By: #### A 1C #### [facility] [address] [address] [address] Ramesh Min LIPID PROFILEon 01-12-2022 CHOL-HDL RATIO NORM SEE BELOW Normal [facility] Comment on above: Result Comment: 3.3 - 4.4 LOW RISK 4.4 - 7.1 AVERAGE RISK 7.1 - 11.0 MODERATE RISK >11.0 HIGH RISK Performed By: #### B SENIOR ENGINEERING TECH, CMP, LIPID, CRP #### [facility] [address] [address] [address] Ramesh Min Cholesterol [Mass/Vol] 125 mg/dL Normal <=200 [facility] Comment on above: Performed By: #### B SENIOR ENGINEERING TECH, CMP, LIPID, CRP #### [facility] [address] [address] [address] Ramesh Min Cholesterol in HDL [Mass/Vol] 39 mg/dL Normal [facility] Comment on above: Performed By: #### B SENIOR ENGINEERING TECH, CMP, LIPID, CRP #### [facility] [address] [address] [address] Ramesh Min Cholesterol in LDL [Mass/Vol] 69.2 mg/dL Normal [facility] Comment on above: Performed By: #### B SENIOR ENGINEERING TECH, CMP, LIPID, CRP #### [facility] [address] [address] [address] Ramesh Min Cholesterol.total/Cho lesterol in HDL [Mass ratio] 3.2 {ratio} Normal [facility] Comment on above: Performed By: #### B SENIOR ENGINEERING TECH, CMP, LIPID, CRP #### [facility] [address] [address] [address] Ramesh Min HDL NORMAL > or = 60 mg/dl - LO W CARDIOVASCULAR RISK <40 mg/dl - HIGH CARDIOVASCULAR RISK Normal [facility] Comment on above: Performed By: #### B SENIOR ENGINEERING TECH, CMP, LIPID, CRP #### [facility] [address] [address] [address] Ramesh Min LDL CALC NORMAL SEE BELOW Normal [facility] Comment on above: Result Comment: <100 mg/dl OPTIMAL 100 - 129 mg/dl NEAR OR ABOVE OPTIMAL 130 - 159 mg/dl BORDERLINE HIGH 160 - 189 mg/dl HIGH >190 mg/dl VERY HIGH Performed By: #### B SENIOR ENGINEERING TECH, CMP, LIPID, CRP #### [facility] [address] [place] [address] Dr. Ramesh Min Triglyceride [Mass/Vol] 84 mg/dL Normal <=150 [facility] Comment on above: Performed By: #### B SENIOR ENGINEERING TECH, CMP, LIPID, CRP #### [facility] [address] [place] [address] Dr. Ramesh Min VLDL CALC 16.8 mg/dL Normal [facility] Comment on above: Performed By: #### B SENIOR ENGINEERING TECH, CMP, LIPID, CRP #### [facility] [address] [place] [address] Dr. Ramesh Min PROF 14(COMP METB)on 022 Albumin [Mass/Vol] 3.7 g/dL Normal 3.5-5.0 [facility] Comment on above: Performed By: #### B SENIOR ENGINEERING TECH, CMP, LIPID, CRP #### [facility] [address] [place] [address] Dr. Ramesh Min Albumin/Globulin [Mass ratio] 0.9 {ratio} Normal [facility] Comment on above: Performed By: #### B SENIOR ENGINEERING TECH, CMP, LIPID, CRP #### [facility] [address] [place] [address] Dr. Ramesh Min ALP [Catalytic activity/Vol] 75 U/L Normal 38-126 [facility] Comment on above: Performed By: #### B SENIOR ENGINEERING TECH, CMP, LIPID, CRP #### [facility] [address] [place] [address] Dr. Ramesh Min ALT [Catalytic activity/Vol] 33 U/L Normal 21-72 [facility] Comment on above: Performed By: #### B SENIOR ENGINEERING TECH, CMP, LIPID, CRP #### [facility] [address] [place] [address] Dr. Ramesh Min Anion gap [Moles/Vol] 10.8 mmol/L Normal [facility] Comment on above: Performed By: #### B SENIOR ENGINEERING TECH, CMP, LIPID, CRP #### [facility] [address] [place] [address] Dr. Ramesh Min AST [Catalytic activity/Vol] 15 U/L Critically low 17-59 [facility] Comment on above: Performed By: #### B SENIOR ENGINEERING TECH, CMP, LIPID, CRP #### [facility] [address] [place] [address] Dr. Ramesh Min Bilirubin [Mass/Vol] 0.3 mg/dL Normal 0.2-1.3 [facility] Comment on above: Performed By: #### B SENIOR ENGINEERING TECH, CMP, LIPID, CRP #### [facility] [address] [place] [address] Dr. Ramesh Min Calcium [Mass/Vol] 9.5 mg/dL Normal 8.4-10.2 [facility] Comment on above: Performed By: #### B SENIOR ENGINEERING TECH, CMP, LIPID, CRP #### [facility] [address] [place] [address] Dr. Ramesh Min Chloride [Moles/Vol] 103 mmol/L Normal 98-107 [facility] Comment on above: Performed By: #### B SENIOR ENGINEERING TECH, CMP, LIPID, CRP #### [facility] [address] [place] [address] Dr. Ramesh Min CO2 [Moles/Vol] 28.4 mmol/L Normal 22.0-30.0 [facility] Comment on above: Performed By: #### B SENIOR ENGINEERING TECH, CMP, LIPID, CRP #### [facility] [address] [place] [address] Dr. Ramesh Min Creatinine [Mass/Vol] 0.92 mg/dL Normal 0.66-1.25 [facility] Comment on above: Performed By: #### B SENIOR ENGINEERING TECH, CMP, LIPID, CRP #### [facility] [address] [place] [address] Dr. Ramesh Min EGFR-AF KITTITIAN >60 Normal >=60 [facility] Comment on above: Performed By: #### B SENIOR ENGINEERING TECH, CMP, LIPID, CRP #### [facility] [address] [place] [address] Dr. Ramesh Min EGFR-NON AF KITTITIAN >60 Normal >=60 [facility] Comment on above: Performed By: #### B SENIOR ENGINEERING TECH, CMP, LIPID, CRP #### [facility] [address] [place] [address] Dr. Ramesh Min Globulin (S) [Mass/Vol] 4.1 g/dL Normal [facility] Comment on above: Performed By: #### B SENIOR ENGINEERING TECH, CMP, LIPID, CRP #### [facility] [address] [address] [address] Ramesh Min Glucose [Mass/Vol] 104 mg/dL Normal 74-106 [facility] Comment on above: Performed By: #### B SENIOR ENGINEERING TECH, CMP, LIPID, CRP #### [facility] [address] [place] [address] Dr. Ramesh Min Potassium [Moles/Vol] 4.2 mmol/L Normal 3.4-5.0 [facility] Comment on above: Performed By: #### B SENIOR ENGINEERING TECH, CMP, LIPID, CRP #### [facility] [address] [place] [address] Dr. Ramesh Min Protein [Mass/Vol] 7.8 g/dL Normal 6.1-8.2 [facility] Comment on above: Performed By: #### B SENIOR ENGINEERING TECH, CMP, LIPID, CRP #### [facility] [address] [place] [address] Dr. Ramesh Min Sodium [Moles/Vol] 138 mmol/L Normal 137-145 [facility] Comment on above: Performed By: #### B SENIOR ENGINEERING TECH, CMP, LIPID, CRP #### [facility] [address] [place] [address] Dr. Ramesh Min Urea nitrogen [Mass/Vol] 18.0 mg/dL Normal 9.0-20.0 [facility] Comment on above: Performed By: #### B SENIOR ENGINEERING TECH, CMP, LIPID, CRP #### [facility] [address] [place] [address] Dr. Ramesh Min Urea nitrogen/Creatinine [Mass ratio] 19.6 mg/mg Normal [facility] Comment on above: Performed By: #### B SENIOR ENGINEERING TECH, CMP, LIPID, CRP #### [facility] [address] [address] [address] Ramesh Min SED RATE [facility] 2021 SED RATE 20 mm/hr Normal <=20 [facility] Comment on above: Performed By: #### S EDR #### [facility] [address] [address] [address] Ramesh Min Vital Signs Date Time Vital Sign Value Performing Clinician Faci lity 04-16-2024 15:18-0400 Blood Pressure Location [facility] 04-16-2024 15:18-0400 Diastolic blood pressure 92 mm[Hg] [facility] 04-16-2024 15:18-0400 Heart rate 76 /min [facility] 04-16-2024 15:18-0400 Respiratory rate 16 /min [facility] 04-16-2024 15:18-0400 Systolic blood pressure 140 mm[Hg] [facility] Encounters Encounter Date Encounter Type Care Provider Facility Start: 03-05-2025 ambulatory TAMMY HARDY Fa cility:[facility] [place] Start: 08-28-2024 End: 08-28-2024 ambulatory TAMMY HARDY Facility:[facility] [place] [facility] Start: 08-27-2024 End: 08-27-2024 ambulatory ERWIN TIPTON Facility:[facility] [place] Start: 08-27-2024 End: 08-27-2024 Patient encounter procedure ERWIN TIPTON [facility] Start: 08-15-2024 End: 08-15-2024 ambulatory SHAIKH TIFFANIE Not Available Start: 07-30-2024 End: 07-30-2024 ambulatory SHREE MCNALLYERAN Not Available Start: 07-24-2024 ambulatory ERWIN TIPTON Facility :[facility] Start: 07-23-2024 End: 07-23-2024 ambulatory TAMMY VALENTINZPATRICK Not Available Start: 07-08-2024 End: 07-08-2024 ambulatory TANIA GUSMAN Not Available Start: 05-29-2024 End: 05-29-2024 ambulatory Funmi RESENDIZ Facility:[id number] Start: 05-23-2024 End: 05-23-2024 ambulatory MERCEDES FAWWAD Not Available Start: 04-16-2024 End: 04-16-2024 ambulatory LIT BARILLAS Facility: [place] Start: 04-16-2024 End: 04-16-2024 Patient encounter procedure Funmi RESENDIZ [facility] Start: 03-22-2024 End: 03-22-2024 ambulatory [facility] Start: 03-14-2024 End: 03-14-2024 ambulatory MARTIR Burnett PETLIVANI Not Available Start: 02-21-2024 End: 02-21-2024 ambulatory MERCEDES FAWWAD Not Available Start: 01-25-2024 End: 01-25-2024 ambulatory MERCEDES FAWWAD Not Available Start: 11-16-2023 End: 11-16-2023 ambulatory MERCEDES FAWWAD Not Available Start: 08-31-2023 End: 08-31-2023 ambulatory [facility] Start: 07-03-2022 ambulatory MARIANELA SADIA Facility:[facility] Start: 01-26-2022 ambulatory MARIANELA SADIA Facility:[facility] Start: 01-25-2022 End: 01-26-2022 ambulatory MARIANELA SADIA Facility:[facility] Start: 01-12-2022 End: 01-13-2022 ambulatory MARIANELA SADIA Facility:[facility] Procedures Date Procedure Procedure Detail Performing Clinician Start: 05-29-2024 Colonoscopy ERWIN TODD Start: 04-08-2014 Colonoscopy Funmi NI LL Cardiac catheterization Isma aeheather NILL Repair of umbilical hernia Adonay curtis NILL Tonsillectomy and adenoidectomy Funmi NILL Immunizations Immunization Date Immunization Notes Care Provider Fa cili 09-28-2023 influenza virus vaccine, unspecified formulation Funmi NILL [facility] 10-23-2021 SARS-CoV-2 (COVID-19 ) mRNA-1273 vaccine Funmi NILL [facility] 03-06-2021 SARS-CoV-2 (COVID-19 ) mRNA-1273 vaccine Funmi NILL [facility] 02-06-2021 SARS-CoV-2 (COVID-19 ) mRNA-1273 vaccine Funmi VICTORL [facility] Payers Date Payer Category Payer Medicare [id number] 1957 Private Health Insurance [facility] [id number] 1957 Private Health Insurance [facility] [id number] 1957 Self-pay 1955 Unknown [id number] 2.16.84 [id number] 1957 Unknown [id number] 2.16.84 [id number] 1957 Unknown [id number] 2.16.84 0.1.442855.3.579.2.593 1957 Unknown [id number] 2.16.84 0.1.477891.3.579.2.593 1957 Unknown [id number] 2.16.84 0.1.933588.3.579.2.1259 1957 Unknown [id number] 2.16.84 0.1.375688.3.579.2.1259 1957 Unknown [id number] 2.16.84 0.1.760645.3.579.2.125 1957 Unknown [id number] 2.16.84 0.1.497041.3.579.2.1259 1957 Unknown [id number] 2.16.84 0.1.317119.3.579.2.125 1957 Unknown [id number] 2.16.84 0.1.535432.3.579.2.125 1957 Unknown [id number] 2.16.84 0.1.328752.3.579.2.1258 1957 Unknown [id number] 2.16.84 0.1.148290.3.579.2.1258 1957 Unknown [id number] 2.16.840 .1.613040.3.579.2.1258 1957 Unknown [id number] 2.16.8 40.1.440722.3.579.2.727 1957 Unknown [id number] 2.16.8 40.1.107216.3.579.2.727 1957 Unknown [id number] 2.16.8 40.1.740763.3.579.2.727 1957 Unknown [id number] 2.16.8 40.1.570048.3.579.2.727 1957 Unknown [id number] 2.16.8 40.1.074342.3.579.2.727 Social History Date Type Detail Facility Start: 04-16-2024 Tobacco smoking status Ex-smoker (fi nding) [facility] Tobacco smoking status Smokeless tobacco user within last 30 days [facility] Sex Assigned At Male [facility] Functional Status Date Assessment Result Facility 04-16-2024 Functional Status N/A [facility] Clinical Note 08-28-2024 Note Date & Type Note Facility 08-28-2024 Note Patient Education Urology Erectile Dysfunction Erectile dysfunction (ED) is the inability to get or keep an erection in order to have sexual intercourse. ED is considered a symptom of an underlying disorder and is not considered a disease. ED may include: ? Inability to get an erection. ? Lack of enough hardness of the erection to allow penetration. ? Loss of erection before sex is finished. What are the causes? This condition may be caused by: ? Physical causes, such as: ? Artery problems. This may include heart disease, high blood pressure, atherosclerosis, and diabetes. ? Hormonal problems, such as low testosterone. ? Obesity. ? Nerve problems. This may include back or pelvic injuries, multiple sclerosis, Parkinson's disease, spinal cord injury, and stroke. ? Certain medicines, such as: ? Pain relievers. ? Antidepressants. ? Blood pressure medicines and water pills (diuretics). ? Cancer medicines. ? Antihistamines. ? Muscle relaxants. ? Lifestyle factors, such as: ? Use of drugs such as marijuana, cocaine, or opioids. ? Excessive use of alcohol. ? Smoking. ? Lack of physical activity or exercise. ? Psychological causes, such as: ? Anxiety or stress. ? Sadness or depression. ? Exhaustion. ? Fear about sexual performance. ? Guilt. What are the signs or symptoms? Symptoms of this condition include: ? Inability to get an erection. ? Lack of enough hardness of the erection to allow penetration. ? Loss of the erection before sex is finished. ? Sometimes having normal erections, but with frequent unsatisfactory episodes. ? Low sexual satisfaction in either partner due to erection problems. ? A curved penis occurring with erection. The curve may cause pain, or the penis may be too curved to allow for intercourse. ? Never having nighttime or morning erections. How is this diagnosed? This condition is often diagnosed by: ? Performing a physical exam to find other diseases or specific problems with the penis. ? Asking you detailed questions about the problem. ? Doing tests, such as: ? Blood tests to check for diabetes mellitus or high cholesterol, or to measure hormone levels. ? Other tests to check for underlying health conditions. ? An ultrasound exam to check for scarring. ? A test to check blood flow to the penis. ? Doing a sleep study at home to measure nighttime erections. How is this treated? This condition may be treated by: ? Medicines, such as: ? Medicine taken by mouth to help you achieve an erection (oral medicine). ? Hormone replacement therapy to replace low testosterone levels. ? Medicine that is injected into the penis. Your health care provider may instruct you how to give yourself these injections at home. ? Medicine that is delivered with a short applicator tube. The tube is inserted into the opening at the tip of the penis, which is the opening of the urethra. A tiny pellet of medicine is put in the urethra. The pellet dissolves and enhances erectile function. This is also called MUSE (medicated urethral system for erections) therapy. ? Vacuum pump. This is a pump with a ring on it. The pump and ring are placed on the penis and used to create pressure that helps the penis become erect. ? Penile implant surgery. In this procedure, you may receive: ? An inflatable implant. This consists of cylinders, a pump, and a reservoir. The cylinders can be inflated with a fluid that helps to create an erection, and they can be deflated after intercourse. ? A semi-rigid implant. This consists of two silicone rubber rods. The rods provide some rigidity. They are also flexible, so the penis can both curve downward in its normal position and become straight for sexual intercourse. ? Blood vessel surgery to improve blood flow to the penis. During this procedure, a blood vessel from a different part of the body is placed into the penis to allow blood to flow around (bypass) damaged or blocked blood vessels. ? Lifestyle changes, such as exercising more, losing weight, and quitting smoking. Follow these instructions at home: Medicines ? Take [id number]-pajbmxz and prescription medicines only as told by your health care provider. Do not increase the dosage without first discussing it with your health care provider. ? If you are using self-injections, do injections as directed by your health care provider. Make sure you avoid any veins that are on the surface of the penis. After giving an injection, apply pressure to the injection site for 5 minutes. ? Talk to your health care provider about how to prevent headaches while taking ED medicines. These medicines may cause a sudden headache due to the increase in blood flow in your body. General instructions ? Exercise regularly, as directed by your health care provider. Work with your health care provider to lose weight, if needed. ? Do not use any products that contain nicotine or tobacco. These (more content not included)... [facility] Clinical Note 04-16-2024 Note Date & Type [...] Brother. Primary oscar (more content not included)... [facility] Comment on above: Result Comment: Elec tronically Signed By: MARTÍN PARISH, Funmi Santos\.br\Date and Time Signed: 04/16/24 16:19 EDT Progress note 03-22-2024 Note Date & Type Note Facility 03-22-2024 Note [facility] Subjective Funmi Julio is [...] complication, without long-term current use of insulin ([facility]) Family History Problem Relation Name [...] that time he had ran out of [employer] and this was refilled. His blood pressure [...] that they are referring him to a bottom man for follow-up. Review of Systems Cardiovascular: Positive [...] in the morni (more content not included)... [facility] Progress note 08-31-2023 Note Date [...] All other systems reviewed and are negative. [facility] Progress note 10-05-2023 Note Date & Type Note Facility 08-31-2023 Note Cardiovascular Medic [facility] SUBJECTIVE Chief Complaint Patient presents [...] year. 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 [facility] Evaluation + Plan note Note Date & Type Note Facility Evaluation + Plan note No data available for this section [facility] Evaluation + Plan note Note Date & Type Note Facility Evaluation + Plan note Future Appointments Appointment Date:08/28/2024 10:15:00 AM Scheduled Provider:Tania Mariscal MD Location:[facility] Appointment Type:URO New Patient [facility] Hospital Discharge instructions Note Date & Type Note Facility Hospital Discharge instructions No data available for this section [facility] Progress note Note Date & Type Note Facility Progress note No data available for this section [facility] Summary Purpose Family History No Family History Records FoundNo Family History Records Found No data available for this section No Family History Records FoundNo Family History Records Found No data available for this section Advance Directives No Advanced Directives Records FoundNo Advanced Directives Records FoundNo Advanced Directives Records FoundNo Advanced Directives Records Found Additional Source Comments (unrecognized sect ion and content) No Status Records FoundNo Status Records FoundNo Status Records FoundNo Status Records Found INFORMATION SOURCE (unrecogn ized section and content) DATE CREATED AUTHOR 07/03/2022 [facility] DATE CREATED AUTHOR AUTHOR'S ORGANIZ ATION 03/24/2024 [facility] DATE CREATED AUTHOR AUTHOR'S ORGANIZ ATION 08/17/2024 [facility] EPIC DATE CREATED AUTHOR AUTHOR'S ORGANJOHN ATION 08/29/2024 [facility] Patient Care team informatio n (unrecognized section and content) Personnel Name: SHAIKH MORENO MD Address: Address: [facility] [place], [address] Personnel Name: SHAIKH MORENO MD Address: Address: [facility] [place], [address] FOR RECORDS PERTAINING TO PATIENTS WHO ARE [...] BE BASED ON THE PRIMARY CLINICAL RECORDS. [employer] provides no warranty or guarantee of the accuracy or completeness of information in this document.
[2024-09-04 04:08] LABS: Testosterone 242 ng/dL (264-916)
== END 2024-09-03 08:07 | disposition home or self-care (01) ==
LOC: LAB 08:08
PROVIDERS: Visit Provider Urology
DX: R68.82 Decreased libido (principal); N52.9 Male erectile dysfunction, unspecified
CPT/HCPCS: 36415; 84403

== ENCOUNTER 2024-09-10 09:05 | Outpatient (OUT) | payer MEDICARE, SELFPAY ==
--- OUTSIDE RECORDS SUMMARY | 2024-09-10 09:28 | XMS_ITS | CCD ---
Author Organization [facility] Care Team Providers Care Batting Machine Operator Insulation Name Role Phone SADIA, MARIANELA Admitting Unavailable [...] Attending Unavailable SHAIKH MORENO Primary Care Physician ERWIN TIPTON Attending Unavailable RACHID BARILLAS Referring Unavailable Funmi RESENDIZ Attending Unavailable Funmi RESENDIZ Attending Unavailable TAMMY HARDY Primary Care UnavailTania Lawrence Attending Unavailable TAMMY HARDY Referring UnavailTAMMY Harrell Primary Care UnavailTania Lawrence Attending Unavailable DAVID, MS. TAMMY BADILLO Primary Care P katty SHAIKH MORENO Attending Unavailable SHAIKH MORENO Attending Unavailable MARTIR DURHAM Attending Unavailable SHAIKH MORENO Referring Unavailable SHAIKH MORENO Attending Unavailable TANIA LUCERO Attending Unavailable TAMMY HARDY Attending UnavailSHAIKH Reynoso Attending Unavailable SHREE HERNANDES Attending Unavailable TANIA LUCERO Referring Unavailable TANIA LUCERO Attending Unavailable Rachid Barillas MD Unavailable Tammy Hardy NP Unavailable Rachid Barillas MD Primary Care Provider Allergies Allergy Classification Reported Allergen(s) Allergy Type Date of Onset Reaction(s) Facility (1 source) oxyCODONE Drug Allergy 2 [facility] Repository (9 sources) oxyCODONE; Translations: [OXYCODONE] Drug Allergy 2 Dyspnea (finding), Weal (disorder), Hives [facility] Repository Medications Current Medications Medication Drug Class(es) Dates Sig (Normalized) Sig (Original) 0.25 MG, 0.5 MG Dose 3 ML semaglutide 0.68 MG/ML Pen Injector [Ozempic] (1 source) Start: 4 inject 0.5 mg by subcutaneous injection every week Ozempic 2 mg/3 mL (0.25 mg or 0.5 mg dose) subcutaneous solution 0.5 mg, SubCutaneous, qWeek Start Date: 08/28/24 Status: Ordered [id number] 200 actuat albuterol 0.09 mg/actuat metered dose inhaler (3 sources) beta2-Adrenergic Agonist Start: 4 take 2 puff(s) by inhalation every four hours for wheezing albuterol HFA (Ventolin HFA) 90 mcg/act inhaler Indications: Acute bronchitis with wheezing Inhale 2 puffs every 4 (four) hours if needed for wheezing 18 g 07/23/2024 Active Albuterol (Eqv-Ventolin HFA) 90 mcg/inh inhalation aerosol (1 source) Start: 4 take 2 puff(s) by inhalation every four hours Albuterol (Eqv-Ventolin HFA) 90 mcg/inh inhalation aerosol 2 puff(s), Inhalation, q4hr Start Date: 08/28/24 Status: Ordered amLODIPine 10 mg oral tablet (7 sources) Dihydropyridine Calcium Channel Zach Start: 4 End: 5 take 1 tablet by mouth once daily amLODIPine (Norvasc) 10 MG tablet Indications: Primary hypertension (CMS/HCC) Take 1 tablet (10 mg) by mouth Daily 90 tablet 1 08/21/2024 02/17/2025 Active aspirin 81 mg chewable tablet (7 sources) Platelet Aggregation Inhibitor, Nonsteroidal Anti-inflammatory Drug Start: 4 aspirin 81 mg Chew Tab 81 mg = 1 tab(s), Chewed, Daily, Refills(s) 0 Start Date: 03/20/24 Status: Ordered atorvastatin 40 mg oral tablet (5 sources) HMG-CoA Reductase Inhibitor Start: 4 take 1 tablet by mouth at bedtime atorvastatin (Lipitor) 40 MG tablet Indications: Hyperlipidemia, unspecified (CMS/HCC) TAKE 1 TABLET BY MOUTH AT BEDTIME 90 tablet 1 05/20/2024 Active fexofenadine hydrochloride 180 mg oral tablet (5 sources) Histamine-1 Receptor Antagonist Start: 4 fexofenadine 180 mg Tab 0 Refill(s), Refills(s) 0 Start Date: 08/28/24 Status: Ordered hydroCHLOROthiazide 12.5 mg / lisinopril 20 mg oral tablet (7 sources) Thiazide Diuretic, Angiotensin Converting Enzyme Inhibitor Start: 4 End: 4 take 1 tablet by mouth once daily lisinopril-hydro CHLOROthiazide 20-12.5 MG tablet Indications: Essential (primary) hypertension (CMS/HCC) Take 1 tablet by mouth Daily 90 tablet 1 05/20/2024 11/16/2024 Active Start: 03-20-2024 take 1 tablet by gareth th twice daily hydrochlorothiazide-lisinopril 12.5 mg-2 0 mg Tab 1 tab(s), Oral, BID, Refill(s) 0 Start Date: 03/20/24 Status: Ordered 24 hr isosorbide mononitrate 60 mg extended release oral tablet (7 sources) Nitrate Vasodilator Start: 03-20-2024 take 1 tablet by mouth once daily in the morning isosorbide mononitrate 60 mg ER Tab 60 mg = 1 tab(s), Oral, qAM, Refills(s) 0 Start Date: 03/20/24 Status: Ordered metFORMIN hydrochloride 850 mg oral tablet (7 sources) Biguanide Start: 03-20-2024 take 1 tablet by mouth once daily metFORMIN (Glucophage) 850 MG tablet Indications: Major depressive disorder, recurrent, mild (HCC) (CMS/HCC) TAKE 1 TABLET BY MOUTH DAILY 90 tablet 1 05/20/2024 Active 24 hr metoprolol succinate 100 mg extended release oral tablet (7 sources) beta-Adrenergic Zach Start: 03-20-2024 take 1 tablet by mouth once daily metoprolol 100 mg ER Tab 100 mg = 1 tab(s), Oral, Daily, Refills(s) 0 Start Date: 03/20/24 Status: Ordered Start: 08-31-2023 take 1 tablet by gareth th every twenty-four hours in the morning metoprolol succinate XL (Toprol-XL) 100 MG 24 hr tablet Take 100 mg by mouth in the morning. 08/31/2023 Active omeprazole 20 mg delayed release oral capsule (7 sources) Proton Pump Inhibitor Start: 03-20-2024 End: 08-20-2025 take 1 capsule by mouth at bedtime omeprazole (PriLOSEC) [address] capsule Indications: Chronic GERD Take 1 capsule (20 mg) by mouth at bedtime 90 capsule 3 08/20/2024 08/20/2025 Active PARoxetine hydrochloride 40 mg oral tablet (7 sources) Serotonin Reuptake Inhibitor Start: 03-20-2024 End: 08-21-2025 take 1 tablet by mouth once daily PARoxetine (Paxil) 40 MG tablet Indications: Persistent depressive disorder (CMS/HCC) Take 1 tablet (40 mg) by mouth Daily 90 tablet 3 08/21/2024 08/21/2025 Active Semaglutide,0.25 or 0.5MG/DOS, (Ozempic, 0.25 or 0.5 MG/DOSE,) 2 MG/3ML solution pen-injector (4 sources) Start: 08-22-2024 End: 09-21-2024 Semaglutide,0.25 or 0.5MG/DOS, (Ozempic, 0.25 or 0.5 MG/DOSE,) 2 MG/3ML solution pen-injector Indications: Type 2 diabetes mellitus without complication, without long-term current use of insulin (CMS/HCC) Inject 0.5 mg under the skin 1 (one) time per week 3 mL 2 08/22/2024 09/21/2024 Active Problems Active Problems Problem Classification Problem Date Documented Date Episodic/Chronic Abdominal hernia (1 source) Umbilical hernia 08-28-2024 Episodic Chronic obstructive pulmonary disease and bronchiectasis (4 sources) Suspected respiratory disease; Translations: [Chronic obstructive pulmonary disease, unspecified] Onset: 01-25-2024 01-25-2024 Chronic Coronary atherosclerosis and other heart disease (13 sources) Atherosclerotic heart disease of [place] coronary artery without angina pectoris; Translations: [Coronary arteriosclerosis] Onset: 01-12-2022 Chronic Deficiency and other anemia (3 sources) Anemia 03-20-2024 Episodic Diabetes mellitus without complication (8 sources) Diabetes mellitus; Translations: [Type 2 diabetes mellitus] Onset: 11-13-2020 03-20-2024 Chronic Disorders of lipid metabolism (14 sources) Mixed hyperlipidemia; Translations: [Dyslipidemia] Onset: 11-13-2020 Chronic Esophageal disorders (7 sources) Gastroesophageal reflux disease; Translations: [Gastro-esophageal reflux disease without esophagitis] Onset: 11-13-2020 03-20-2024 Chronic Essential hypertension (14 sources) Essential (primary) hypertension; Translations: [Benign essential hypertension] Onset: 05-13-2013 Chronic Mood disorders (7 sources) Depressive disorder; Translations: [Dysthymic disorder] Onset: 11-13-2020 03-20-2024 Chronic Other ear and sense organ disorders (4 sources) Excessive cerumen in ear canal ; Translations: [Impacted cerumen, bilateral] Onset: 07-23-2024 07-23-2024 Episodic Other hereditary and degenerative nervous system conditions (4 sources) Impaired cognition; Translations: [Mild cognitive impairment, so stated] Onset: 05-23-2024 05-23-2024 Chronic Other male genital disorders (2 sources) Male erectile dysfunction, unspecified; Translations: [Erectile dysfunction] Onset: 08-28-2024 Chronic Other male genital disorders (6 sources) Acquired buried penis; 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] Onset: 07-23-2024 Chronic Other nervous system disorders (2 sources) Impaired cognition; Translations: [Other symptoms and signs involving cognitive functions and awareness] 09-04-2024 Episodic Other nutritional; endocrine; and metabolic disorders (1 source) Morbid obesity; Translations: [Morbid (severe) obesity due to excess calories] Onset: 04-16-2024 Chronic Other nutritional; endocrine; and metabolic disorders (7 sources) Body mass index 40+ - severely obese; Translations: [Body mass index (BMI) 40.0-44.9, adult] Onset: 05-23-2024 04-16-2024 Chronic Other nutritional; endocrine; and metabolic disorders (3 sources) Obese class III 03-20-2024 Chronic Other screening for suspected conditions (not mental disorders or infectious disease) (2 sources) Screening for malignant neoplasm of colon done; Translations: [Encounter for screening for malignant neoplasm of colon] Onset: 04-16-2024 Episodic Residual codes; unclassified (1 source) Obstructive sleep apnea syndrome 08-28-2024 Chronic Residual codes; unclassified (4 sources) Sleep apnea; Translations: [Sleep apnea, unspecified] Onset: 04-16-2012 01-25-2024 Chronic Residual codes; unclassified (2 sources) Reduced libido; Translations: [Decreased libido] Onset: 08-28-2024 Episodic Unclassified (3 sources) Patient encounter status 04-16-2024 Unclassified (1 source) Calcified granuloma of lung 08-28-2024 Past or Other Problems Problem Classification Problem Date Documented Da te Episodic/Chronic Acute bronchitis (4 sources) Acute bronchitis co-occurrent with wheeze; Translations: [Acute bronchitis, unspecified] Onset: 11-16-2023 Resolved: 01-25-2024 01-25-2024 Episodic Diabetes mellitus without complication (2 sources) Prediabetes; Translations: [Impaired fasting glycemia] Onset: 01-14-2022 08-28-2024 Episodic Mood disorders (4 sources) Mood disorders Onset: 05-23-2024 05-23-2024 Other and unspecified benign neoplasm (4 sources) Pigmented skin lesion ; Translations: [Melanocytic nevi, unspecified] Onset: 01-25-2024 Resolved: 05-23-2024 05-23-2024 Episodic Other lower respiratory disease (5 sources) Other forms of dyspnea; Translations: [OTHER FORMS OF DYSPNEA] Onset: 01-14-2022 Episodic Other lower respiratory disease (4 sources) Solitary nodule of lung; Translations: [Solitary pulmonary nodule] Onset: 07-20-2022 11-16-2023 Episodic Otitis media and related conditions (4 sources) Acute suppurative otitis media without spontaneous rupture of ear drum; Translations: [Acute suppurative otitis media without spontaneous rupture of ear drum, bilateral] Onset: 11-16-2023 Resolved: 01-25-2024 01-25-2024 Episodic Results Test Name Value Interpretation Reference Range Facility ALL TESTOSTERONEon Interpretation and review of laboratory results Abnormal [facility] Testosterone [Mass/Vol] 242 ng/dL Abnormal 264 - 916 ng/dL [facility] Comment on above: Adult male reference interval is based on a population of healthy nonobese males (BMI <30) between 19 and 39 years old. Veronica et.al. JCEM 2017,102;3036-5760. PMID: [id number]. Performed at: [facility] [employer] [id number] [employer] Operator: Tato Hall PhD, Phone: [phone] [facility] Ambulatory Visit Summaryon 1 Ambulatory Visit Summary [...] Tania Mariscal MD Where: [facility] [address] [place] [address] [place] [address]- You Need to Schedule the Following Appointments Follow Up with Davye PARISH, Tania Angel, URL, URO When: Where: [address] [place] [address]- [phone] Medications What How Much When Instructions Unchanged [...] the cau (more content not included)... Normal [facility] Urology Office/Clinic Noteon 08-28-2024 Urology Office/Clinic Note [...] testosterone (7-11 AM). Plans to go to [facility]. -If low, will confirm with repeat T, [...] of elevat (more content not included)... Normal [facility] Comment on above: Result Comment: Elec tronically Signed By: Davey PARISH, Tania Angel\.br\Date and Time Signed: 08/28/24 11:36 EDT Reminderson 05-31-2024 Reminders Reminders From: Tracy Walls LPN To: N - Clinical; Sent: 05/31/2024 09:11:26 EDT Show up: 04/29/2034 07:00:00 EDT Subject: colonoscopy recall Due Date/Time: 05/29/2034 07:00:00 EDT Reminder/Recall Patient due for screening colonoscopy 05/29/2034. Normal [facility] Insurance Correspondenceon 0 05-17-2024 Insurance Correspondence [id number]# 1.00TIFF [facility] Consent for Procedure/Surger yon 04-18-2024 Consent for Procedure/Surgery [id number]#1. 00TIFF [facility] Facesheeton 04-17-2024 Facesheet [id number]# 1.00TIFF [facility] Ambulatory Visit Summaryon 0 04-16-2024 Ambulatory Visit Summary FUNMI JULIO :1955 Visit Date:04/16/2024 Ambulatory Visit Instructions Your Diagnosis Screening for malignant neoplasm of colon Class 3 obesity Your Care Team Attending Physician - MARTÍN PARISH, Funmi Santos Primary Care Physician - TIFFANIE PARISH, [facility] Referring Physician - RACHID BARILLAS MD This Is Your Medications List [...] for choosing us for your care. Normal [facility] Office Visiton 03-22-2024 Follow-up visit [id number] Funmi Julio 1955 M Date Provider Department Center 03/22/2024 Walker-RONDA THIBODEAUX EVIE Flores Family History Problem Relation Age of Onset Hypertension Brother Heart attack Other Family Status - Relation Status Age at Brother Other Level of Service:14006 MS OFFICE/OUTPATIENT ESTABLISHED LOW MDM 20 MIN Reason for Visit and Comments: Follow-up [404113] - 6 month Normal [facility] 36on 09-15-2023 36 BP looks better. Continue all his current BP medications. Recommend he continues to monitor his BP a couple times a week and let us know if consistently runs elevated. Plan to follow-up in 6 months as planned or sooner if needed. Thanks! Normal [facility] Office Visiton 08-31-2023 Follow-up visit [id number] Funmi Julio 1955 M Date Provider Department Center 08/31/2023 JOYCE RICKETTS [facility] Family History Problem Relation Age of Onset Hypertension Brother Heart attack Other Family Status - Relation Status Age at Brother Other Level of Service:09251 MS OFFICE/OUTPATIENT ESTABLISHED LOW [facility] 20-29 MIN Reason for Visit and Comments: Coronary Artery Disease [187] Hypertension [274907] Hyperlipidemia [182] Normal [facility] CARDIAC STRESS TESTon 2021 CARDIAC STRESS [...] interpreted and reported in a separate dictation. [facility] Signed and Approved by: DR PADDY STANFORD 02/01/2022 09:17:00 Normal [facility] NM STRESS/REST MULTIon 01-25 NM STRESS/REST MULTI Patient: FUNMI JULIO Exam Date: 01/25/2022 : 1955 Gender:M Ordering : MARIANELA MCCULLOUGH Admission #: [id number] Family : Order #: [id number] CLICK HERE TO VIEW EXAM RADIOLOGY REPORT [...] M.D. on 01/26/2022 at 11:49 Normal [facility] BNPon 01-12-2022 NT PRO BNP <11.1 Normal <=900.0 [facility] Comment on above: Performed By: #### B COPY CENTER ASSOCIATE, CMP, LIPID, CRP #### [facility] [address] [address] [address] Ramesh Min CBC AUTO DIFFon 01-12-2022 BASO # 0.1 103/ul Normal 0.0-0.1 [facility] Comment on above: Performed By: #### C BC #### [facility] [address] [address] [address] Ramesh Min Basophils/100 WBC (Bld) 0.5 % Normal 0.2-2.0 [facility] Comment on above: Performed By: #### C BC #### [facility] [address] [place] [address] Dr. Ramesh Min EO # 0.2 103/ul Normal 0.0-0.7 [facility] Comment on above: Performed By: #### C BC #### [facility] [address] [place] [address] Dr. Ramesh Min Eosinophils/100 WBC (Bld) 2.0 % Normal 0.9-7.0 [facility] Comment on above: Performed By: #### C BC #### [facility] [address] [place] [address] Dr. Ramesh Min Erythrocyte distribution width (RBC) [Ratio] 13.1 % Normal 11.0-15.0 [facility] Comment on above: Performed By: #### C BC #### [facility] [address] [place] [address] Dr. Ramesh Min Hematocrit (Bld) [Volume fraction] 44.2 % Normal 42.0-54.0 [facility] Comment on above: Performed By: #### C BC #### [facility] [address] [place] [address] Dr. Ramesh Min Hemoglobin (Bld) [Mass/Vol] 14.8 g/dL Normal 14.0-18.0 [facility] Comment on above: Performed By: #### C BC #### [facility] [address] [place] [address] Dr. Ramesh Min IG # 0.05 10e3/ul Critically high 0.00-0.03 [facility] Comment on above: Performed By: #### C BC #### [facility] [address] [place] [address] Dr. Ramesh Min IG % 0.5 % Normal 0.0-0.5 [facility] Comment on above: Performed By: #### C BC #### [facility] [address] [place] [address] Dr. Ramesh Min LYMPH # 2.4 103/ul Normal 1.2-3.8 [facility] Comment on above: Performed By: #### C BC #### [facility] [address] [address] [address] Ramesh Min Lymphocytes/100 WBC (Bld) 25.0 % Normal 20.5-60.0 [facility] Comment on above: Performed By: #### C BC #### [facility] [address] [address] [address] Ramesh Min MANUAL DIFF REQ NO Normal [facility] Comment on above: Performed By: #### C BC #### [facility] [address] [place] [address] Dr. Ramesh Min MCH (RBC) [Entitic mass] 30.5 pg Normal 25.9-34.0 [facility] Comment on above: Performed By: #### C BC #### [facility] [address] [place] [address] Dr. Ramesh Min MCHC (RBC) [Mass/Vol] 33.5 g/dL Normal 29.9-35.2 [facility] Comment on above: Performed By: #### C BC #### [facility] [address] [place] [address] Dr. Ramesh Min MCV (RBC) [Entitic vol] 91.1 fL Normal 80.0-94.0 [facility] Comment on above: Performed By: #### C BC #### [facility] [address] [place] [address] Dr. Ramesh Min MONO # 0.8 103/ul Normal 0.3-0.8 [facility] Comment on above: Performed By: #### C BC #### [facility] [address] [place] [address] Dr. Ramesh Min Monocytes/100 WBC (Bld) 8.8 % Normal 1.7-12.0 [facility] Comment on above: Performed By: #### C BC #### [facility] [address] [place] [address] Dr. Ramesh Min NEUT # 6.1 103/ul Normal 1.4-6.5 [facility] Comment on above: Performed By: #### C BC #### [facility] [address] [address] [address] Ramesh Min Neutrophils/100 WBC (Bld) 63.2 % Normal 43.0-75.0 [facility] Comment on above: Performed By: #### C BC #### [facility] [address] [address] [address] Ramesh Min Platelet mean volume (Bld) [Entitic vol] 8.7 fL Critically low 9.5-13.5 [facility] Comment on above: Performed By: #### C BC #### [facility] [address] [address] [address] Ramesh Min PLT 330 103/ul Normal 150-450 [facility] Comment on above: Performed By: #### C BC #### [facility] [address] [address] [address] Ramesh Min RBC 4.85 106/ul Normal 4.70-6.10 [facility] Comment on above: Performed By: #### C BC #### [facility] [address] [address] [address] Ramesh Min WBC 9.6 103/ul Normal 4.0-11.0 [facility] Comment on above: Performed By: #### C BC #### [facility] [address] [address] [address] Ramesh Min CRPon 01-12-2022 CRP 0.7 mg/dL Normal <=1.0 [facility] Comment on above: Performed By: #### B COPY CENTER ASSOCIATE, CMP, LIPID, CRP #### [facility] [address] [place] [address] Dr. Ramesh Min ECHOCARDIO M/2D COMPLETEon 0 01-12-2022 ECHOCARDIO M/2D COMPLETE Patient: FUNMI JULIO Exam Date: 01/12/2022 : 1955 Gender:M Ordering : MARIANELA ReyesHumera SADIA Admission #: [id number] Family : Order #: [id number] CLICK HERE TO VIEW EXAM ECHOCARDIOGRAM REPORT [...] Thibodeaux M.D. on 01/13/2022 at 08:51 Normal [facility] GLYCOHEMOGLOBIN A1Con 2021 ADA RECOMMENDATION ADA THERAPEUTIC TARGET 6.0 - 7.0 ACTION SUGGESTED > 7.0 Normal [facility] Comment on above: Performed By: #### A 1C #### [facility] [address] [address] [address] Ramesh Min Glucose [Mass/Vol] 137 mg/dL Normal [facility] Comment on above: Performed By: #### A 1C #### [facility] [address] [address] [address] Ramesh Min HbA1c (Bld) [Mass fraction] 6.4 % Critically high <=6.0 [facility] Comment on above: Performed By: #### A 1C #### [facility] [address] [address] [address] Ramesh Min LIPID PROFILEon 01-12-2022 CHOL-HDL RATIO NORM SEE BELOW Normal [facility] Comment on above: Result Comment: 3.3 - 4.4 LOW RISK 4.4 - 7.1 AVERAGE RISK 7.1 - 11.0 MODERATE RISK >11.0 HIGH RISK Performed By: #### B COPY CENTER ASSOCIATE, CMP, LIPID, CRP #### [facility] [address] [address] [address] Ramesh Min Cholesterol [Mass/Vol] 125 mg/dL Normal <=200 [facility] Comment on above: Performed By: #### B COPY CENTER ASSOCIATE, CMP, LIPID, CRP #### [facility] [address] [address] [address] Ramesh Min Cholesterol in HDL [Mass/Vol] 39 mg/dL Normal [facility] Comment on above: Performed By: #### B COPY CENTER ASSOCIATE, CMP, LIPID, CRP #### [facility] [address] [address] [address] Ramesh Min Cholesterol in LDL [Mass/Vol] 69.2 mg/dL Normal [facility] Comment on above: Performed By: #### B COPY CENTER ASSOCIATE, CMP, LIPID, CRP #### [facility] [address] [place] [address] Dr. Ramesh Min Cholesterol.total/Cho lesterol in HDL [Mass ratio] 3.2 {ratio} Normal [facility] Comment on above: Performed By: #### B COPY CENTER ASSOCIATE, CMP, LIPID, CRP #### [facility] [address] [address] [address] Ramesh Min HDL NORMAL > or = 60 mg/dl - LO W CARDIOVASCULAR RISK <40 mg/dl - HIGH CARDIOVASCULAR RISK Normal [facility] Comment on above: Performed By: #### B COPY CENTER ASSOCIATE, CMP, LIPID, CRP #### [facility] [address] [address] [address] Ramesh Min LDL CALC NORMAL SEE BELOW Normal [facility] Comment on above: Result Comment: <100 mg/dl OPTIMAL 100 - 129 mg/dl NEAR OR ABOVE OPTIMAL 130 - 159 mg/dl BORDERLINE HIGH 160 - 189 mg/dl HIGH >190 mg/dl VERY HIGH Performed By: #### B COPY CENTER ASSOCIATE, CMP, LIPID, CRP #### [facility] [address] [address] [address] Ramesh Min Triglyceride [Mass/Vol] 84 mg/dL Normal <=150 [facility] Comment on above: Performed By: #### B COPY CENTER ASSOCIATE, CMP, LIPID, CRP #### [facility] [facility] [address] [address] [address] Ramesh Min VLDL CALC 16.8 mg/dL Normal [facility] Comment on above: Performed By: #### B COPY CENTER ASSOCIATE, CMP, LIPID, CRP #### [facility] [address] [address] [address] Ramesh Min PROF 14(COMP METB)on 022 Albumin [Mass/Vol] 3.7 g/dL Normal 3.5-5.0 [facility] Comment on above: Performed By: #### B COPY CENTER ASSOCIATE, CMP, LIPID, CRP #### [facility] [address] [address] [address] Ramesh Min Albumin/Globulin [Mass ratio] 0.9 {ratio} Normal [facility] Comment on above: Performed By: #### B COPY CENTER ASSOCIATE, CMP, LIPID, CRP #### [facility] [address] [place] [address] Dr. Ramesh Min ALP [Catalytic activity/Vol] 75 U/L Normal 38-126 [facility] Comment on above: Performed By: #### B COPY CENTER ASSOCIATE, CMP, LIPID, CRP #### [facility] [address] [address] [address] Ramesh Min ALT [Catalytic activity/Vol] 33 U/L Normal 21-72 [facility] Comment on above: Performed By: #### B COPY CENTER ASSOCIATE, CMP, LIPID, CRP #### [facility] [address] [address] [address] Ramesh Min Anion gap [Moles/Vol] 10.8 mmol/L Normal [facility] Comment on above: Performed By: #### B COPY CENTER ASSOCIATE, CMP, LIPID, CRP #### [facility] [address] [address] [address] Ramesh Min AST [Catalytic activity/Vol] 15 U/L Critically low 17-59 [facility] Comment on above: Performed By: #### B COPY CENTER ASSOCIATE, CMP, LIPID, CRP #### [facility] [address] [place] [address] Dr. Ramesh Min Bilirubin [Mass/Vol] 0.3 mg/dL Normal 0.2-1.3 [facility] Comment on above: Performed By: #### B COPY CENTER ASSOCIATE, CMP, LIPID, CRP #### [facility] [address] [address] [address] Ramesh Min Calcium [Mass/Vol] 9.5 mg/dL Normal 8.4-10.2 [facility] Comment on above: Performed By: #### B COPY CENTER ASSOCIATE, CMP, LIPID, CRP #### [facility] [address] [address] [address] Ramesh Min Chloride [Moles/Vol] 103 mmol/L Normal 98-107 [facility] Comment on above: Performed By: #### B COPY CENTER ASSOCIATE, CMP, LIPID, CRP #### [facility] [address] [address] [address] Ramesh Min CO2 [Moles/Vol] 28.4 mmol/L Normal 22.0-30.0 [facility] Comment on above: Performed By: #### B COPY CENTER ASSOCIATE, CMP, LIPID, CRP #### [facility] [address] [address] [address] Ramesh Min Creatinine [Mass/Vol] 0.92 mg/dL Normal 0.66-1.25 [facility] Comment on above: Performed By: #### B COPY CENTER ASSOCIATE, CMP, LIPID, CRP #### [facility] [address] [place] [address] Dr. Ramesh Min EGFR-AF CUBAN >60 Normal >=60 [facility] Comment on above: Performed By: #### B COPY CENTER ASSOCIATE, CMP, LIPID, CRP #### [facility] [address] [place] [address] Dr. Ramesh Min EGFR-NON AF CUBAN >60 Normal >=60 [facility] Comment on above: Performed By: #### B COPY CENTER ASSOCIATE, CMP, LIPID, CRP #### [facility] [address] [place] [address] Dr. Ramesh Min Globulin (S) [Mass/Vol] 4.1 g/dL Normal [facility] Comment on above: Performed By: #### B COPY CENTER ASSOCIATE, CMP, LIPID, CRP #### [facility] [address] [place] [address] Dr. Ramesh Min Glucose [Mass/Vol] 104 mg/dL Normal 74-106 [facility] Comment on above: Performed By: #### B COPY CENTER ASSOCIATE, CMP, LIPID, CRP #### [facility] [address] [place] [address] Dr. Ramesh Min Potassium [Moles/Vol] 4.2 mmol/L Normal 3.4-5.0 [facility] Comment on above: Performed By: #### B COPY CENTER ASSOCIATE, CMP, LIPID, CRP #### [facility] [address] [place] [address] Dr. Ramesh Min Protein [Mass/Vol] 7.8 g/dL Normal 6.1-8.2 [facility] Comment on above: Performed By: #### B COPY CENTER ASSOCIATE, CMP, LIPID, CRP #### [facility] [address] [place] [address] Dr. Ramesh Min Sodium [Moles/Vol] 138 mmol/L Normal 137-145 [facility] Comment on above: Performed By: #### B COPY CENTER ASSOCIATE, CMP, LIPID, CRP #### [facility] [address] [address] [address] Ramesh Min Urea nitrogen [Mass/Vol] 18.0 mg/dL Normal 9.0-20.0 [facility] Comment on above: Performed By: #### B COPY CENTER ASSOCIATE, CMP, LIPID, CRP #### [facility] [address] [place], [place] [address] Dr. Ramesh Min Urea nitrogen/Creatinine [Mass ratio] 19.6 mg/mg Normal [facility] Comment on above: Performed By: #### B COPY CENTER ASSOCIATE, CMP, LIPID, CRP #### [facility] [address] [address] [address] Ramesh Min SED RATE [facility] 2021 SED RATE 20 mm/hr Normal <=20 [facility] Comment on above: Performed By: #### S EDR #### [facility] [address] [address] [address] Ramesh Min Vital Signs Date Time Vital Sign Value Performing Clinician Claude pickard 09-04-2024 15:15-0400 Body mass index (BMI) [Ratio] 41.45 kg/m2 [employer] Work Phone: [facility] 09-04-2024 15:15-0400 Body weight 138.62 kg Babycareopher [employer] Work Phone: [facility] 09-04-2024 15:15-0400 Diastolic blood pressure 83 mm[Hg] [employer]randolph Lucero [employer] Work Phone: [facility] 09-04-2024 15:15-0400 Heart rate 78 /min Baby[employer]opher Jazmine DO Work Phone: [facility] 09-04-2024 15:15-0400 SaO2% (BldA) [Mass fraction] 94 % [employer] Novast DO Work Phone: [facility] 09-04-2024 15:15-0400 Systolic blood pressure 144 mm[Hg] [employer] Jazmine DO Work Phone: [facility] 08-28-2024 10:40-0400 Diastolic blood pressure 72 mm[Hg] Tania Lue [facility] 08-28-2024 10:40-0400 Heart rate 83 /min Tania Lue [facility] 08-28-2024 10:40-0400 Respiratory rate 16 /min Tania Lue [facility] 08-28-2024 10:40-0400 Systolic blood pressure 138 mm[Hg] Tania Lue [facility] 04-16-2024 15:18-0400 Blood Pressure Location Funmi NILL [facility] 04-16-2024 15:18-0400 Diastolic blood pressure 92 mm[Hg] Funmi NILL [facility] 04-16-2024 15:18-0400 Heart rate 76 /min Funmi NILL [facility] 04-16-2024 15:18-0400 Respiratory rate 16 /min Funmi NILL [facility] 04-16-2024 15:18-0400 Systolic blood pressure 140 mm[Hg] Funmi NILL [facility] Encounters Encounter Date Encounter Type Care Provider Facility Start: 03-05-2025 ambulatory TAMMY Fowler cility:[facility] Start: 09-04-2024 End: 09-04-2024 Office outpatient visit 25 minutes Tania Lucero DO Work Phone: [facility] Comment on above: Cognitive impairment (Primary Dx) Start: 09-04-2024 End: 09-04-2024 ambulatory TANIA LUCERO Not Available Start: 09-04-2024 End: 09-04-2024 Bamboo flowsheet Tania Lucero DO Work Phone: [facility] Start: 09-04-2024 End: 09-04-2024 Bamboo flowsheet Marquisrandolph Jazmine DO Work Phone: [facility] Start: 09-03-2024 End: 09-04-2024 Clinisync Result Encounter Generic External Data Provider [facility] Unsolicited Start: 09-03-2024 End: 09-04-2024 Clinisync Result Encounter Generic External Data Provider [facility] Unsolicited Start: 08-28-2024 End: 08-28-2024 ambulatory TAMMY HARDY Facility:[facility] Start: 08-28-2024 End: 08-28-2024 Patient encounter procedure Tania Mariscal [facility] Start: 08-27-2024 End: 08-27-2024 ambulatory ERWIN TIPTON Facility:[facility]reg[facility] Start: 08-27-2024 End: 08-27-2024 Patient encounter procedure ERWIN TIPTON [facility] Start: 08-15-2024 End: 08-15-2024 ambulatory SHAIKH TIFFANIE Not Available Start: 07-30-2024 End: 07-30-2024 ambulatory SHREE HERNANDES Not Available Start: 07-24-2024 ambulatory ERWIN TIPTON Facility :RACHEL [facility] Start: 07-23-2024 End: 07-23-2024 ambulatory TAMMY HARDY Not Available Start: 07-08-2024 End: 07-08-2024 ambulatory TANIA LUCERO Not Available Start: 05-29-2024 End: 05-29-2024 ambulatory Funmi RESENDIZ Facility:[id number] Start: 05-23-2024 End: 05-23-2024 ambulatory SHAIKH TIFFANIE Not Available Start: 04-16-2024 End: 04-16-2024 ambulatory RACHID BARILLAS Facility:SELENA Borrego Start: 04-16-2024 End: 04-16-2024 Patient encounter procedure Funmi Santos NILL [facility] Start: 03-22-2024 End: 03-22-2024 ambulatory [facility] Start: 03-14-2024 End: 03-14-2024 ambulatory MARTIR DURHAM Not Available Start: 02-21-2024 End: 02-21-2024 ambulatory SHAIKH TIFFANIE Not Available Start: 01-25-2024 End: 01-25-2024 ambulatory SHAIKH TIFFANIE Not Available Start: 11-16-2023 End: 11-16-2023 ambulatory SHAIKH TIFFANIE Not Available Start: 08-31-2023 End: 08-31-2023 ambulatory [facility] Start: 07-03-2022 ambulatory MARIANELA SADIA Facility:[facility] 1 Start: 01-26-2022 ambulatory MARIANELA SADIA Facility:[facility] 1 Start: 01-25-2022 End: 01-26-2022 ambulatory MARIANELA SADIA Facility:[facility] Start: 01-12-2022 End: 01-13-2022 ambulatory MARIANELA SADIA Facility:[facility]1 Procedures Date Procedure Procedure Detail Performing Clinician Start: 09-03-2024 ALL TESTOSTERONE Generi c External Data Provider Start: 05-29-2024 Colonoscopy Generic Pr ovider Start: 05-29-2024 Colonoscopy ERWIN TODD Start: 04-08-2014 Colonoscopy Funmi INFANTE LL Cardiac catheterization Isma ael NILL Repair of umbilical hernia Adonay readstar NILL Tonsillectomy and adenoidectomy Funmi RESENDIZ Plan of Treatment Date Care Activity Detail Author Start: 05-29-2034 Screening for malign ant neoplasm of colon [facility] Start: 05-27-2026 Glaucoma screening Diabetes: R etinopathy Screening [facility] Start: 09-03-2025 End: 09-03-2025 Patient encounter procedure 09/03/2025 9:30 AM EDT Office Visit [facility] [address] [place] [id number] Jazmine FareedmaryuriDO [address] [place] [address] [facility] Start: 01-31-2025 Urine screening for protein Diabetes: Urine Protein Screening [facility] Start: 09-04-2024 End: 09-04-2024 Patient encounter procedure [facility] Comment on above: Arrived Start: 08-03-2024 Hemoglobin A1c measurement Diabetes: Hemoglobin A1C [facility] Start: 07-28-2024 Influenza vaccination Influenza Vacc ine (#1) [facility] Start: 1961 Pneumococcal Vaccine : 65+ Years (1 of 2 - PCV) Pneumococcal Vaccine: 65+ Years (1 of 2 - PCV) [facility] Start: 1955 Screening for malign ant neoplasm of colon [facility] Immunizations Immunization Date Immunization Notes Care Provider Fa cility 09-28-2023 influenza virus vaccine, unspecified formulation Funmi RESENDIZ [facility] 09-28-2023 Influenza, High-dose Seasonal, Quadrivalent, Preservative Free Generic Provider [facility] 10-23-2021 SARS-CoV-2 (COVID-19 ) mRNA-1273 vaccine Funmi RESENDIZ [facility] 09-12-2021 influenza virus vaccine, unspecified formulation Tania Mariscal [facility] 09-12-2021 influenza, injectabl e, quadrivalent, preservative free Generic Provider [facility] 03-06-2021 SARS-CoV-2 (COVID-19 ) mRNA-1273 vaccine Funmi RESENDIZ [facility] 02-06-2021 SARS-CoV-2 (COVID-19 ) mRNA-1273 vaccine Funmi RESENDIZ [facility] 08-27-2020 influenza virus vaccine, unspecified formulation Generic Provider [facility] 08-26-2020 influenza virus vaccine, unspecified formulation Tania Lue [facility] 08-26-2020 influenza, injectabl e, quadrivalent, preservative free Generic Provider [facility] 11-18-2019 influenza virus vaccine, unspecified formulation Tania Lue [facility] 11-18-2019 influenza, injectabl e, quadrivalent, contains preservative Generic Provider [facility] 04-27-2019 zoster vaccine recombinant Generic Provider [facility] 11-27-2018 zoster vaccine recombinant Generic Provider [facility] 09-11-2018 zoster vaccine recombinant Tania Lue [facility] 08-14-2018 influenza virus vaccine, unspecified formulation Tania Lue [facility] 08-14-2018 influenza, seasonal, injectable Generic Provider [facility] 03-10-2018 zoster vaccine recombinant Tania Lue [facility] 09-15-2017 influenza virus vaccine, unspecified formulation Tania Lue [facility] 09-15-2017 influenza, seasonal, injectable Generic Provider [facility] 10-16-2015 influenza virus vaccine, unspecified formulation Tania Lue [facility] 10-16-2015 influenza, seasonal, injectable Generic Provider [facility] 08-05-2013 influenza virus vaccine, unspecified formulation Tania Lue [facility] 08-05-2013 influenza, seasonal, injectable, preservative free Generic Provider [facility] 08-09-2012 influenza virus vaccine, unspecified formulation Tania Mariscal [facility] 08-09-2012 influenza, seasonal, injectable, preservative free Generic Provider [facility] 08-12-2011 influenza virus vaccine, unspecified formulation Tania Mariscal [facility] 08-12-2011 influenza, seasonal, injectable, preservative free Generic Provider [facility] 07-28-2011 influenza virus vaccine, unspecified formulation Generic Provider [facility] Payers Date Payer Category Payer Medicare AETNA MEDICARE A DVANTAGE AETNA MEDICARE REPLACEMENT [id number] 2022-Present [address] [place] [address] [id number] 2022 Medicare [id number] 1959 Private Health Insurance [id number] 1959 Private Health Insurance [id number] 1959 Self-pay 1957 Unknown [id number] [id number]. 593 1957 Unknown [id number] 2.16.840.1.655689.3.579.2. 593 1957 Unknown [id number] 2.16.840.1.763829.3.579.2. 593 1957 Unknown [id number] 2.16.840.1.112661.3.579.2. 593 1957 Unknown [id number] 2.16.840.1.222138.3.579.2. 727 1957 Unknown [id number] 2.16.840.1.084792.3.579.2. 727 1957 Unknown [id number] 2.16.840.1.522257.3.579.2. 727 1957 Unknown [id number] 2.16.840.1.705733.3.579.2. 727 1957 Unknown [id number] 2.16.840.1.363207.3.579.2. 727 1957 Unknown [id number] 2.16.840.1.604113.3.579.2. 9 1957 Unknown [id number] 2.16.840.1.351888.3.579.2. 9 1957 Unknown [id number] 2.16.840.1.707558.3.579.2. 1258 1957 Unknown [id number] 2.16.840.1.865530.3.579.2. 9 1957 Unknown [id number] 2.16.840.1.507523.3.579.2. 9 1957 Unknown [id number] 2.16.840.1.047880.3.579.2. 1258 1957 Unknown [id number] 2.16.840.1.887956.3.579.2. 1258 1957 Unknown [id number] 2.16.840.1.922289.3.579.2. 9 1957 Unknown [id number] 2.16.840.1.273107.3.579.2. 1258 1957 Unknown [id number] 2.16.840.1.289444.3.579.2. 1259 Social History Date Type Detail Facility Start: 04-16-2024 End: 07-08-2024 Tobacco smoking status Ex-smoker (finding) [facility] [place] Tobacco smoking status Smokeless tobacco user within last 30 days [facility] Start: 07-16-2024 End: 07-23-2024 Sex Assigned At Male [facility] History of tobacco use Current smoker [facility] History of tobacco use Cigarette Smoker [facility] Start: 07-08-2024 End: 07-16-2024 Cigarettes smoked current (pack per day) - Reported 0.5 [facility] History of tobacco use Passive smoker [facility] Start: 07-08-2024 Tobacco use and exposure User of smokeless tobacco [facility] History of tobacco use Chews Tobacco [facility] Start: 07-23-2024 End: 09-04-2024 Alcoholic beverage intake Lifetime non-drinker (finding) [facility] Do you belong to any clubs or organizations such as pentecostal groups, unions, fraternal or athletic groups, or school groups? No [facility] Are you now , , , , never or living with a partner? [facility] How often to you hav e a drink containing alcohol? 4 or more times a week [facility] How many standard dr inks containing alcohol do you have on a typical day? 3 or 4 [facility] How often do you hav e 6 or more drinks on 1 occasion? Weekly [facility] How hard is it for y ou to pay for the very basics like food, housing, medical care, and heating Not very hard [facility] Do you feel stress - tense, restless, nervous, or anxious, or unable to sleep at night because your mind is troubled all the time - these days [OSQ] Only a little [facility] (I/We) worried wheth er (my/our) food would run out before (I/we) got money to buy more. Never true [facility] Start: 1955 Sex assigned at Not on file [facility] Functional Status Date Assessment Result Facility 08-28-2024 Functional Status N/A [facility] 04-16-2024 Functional Status N/A [facility] [place] Clinical Notes 08-31-2023 to 09-04-2024 Tania Lucero DO - 09/04/2024 3:30 PM EDT Note Date & Type Note Facility 09-04-2024 History of Present illness Narrative Images from the original note were not included. Chief complaint: Cognitive impairment Subjective Funmi Burnett Humberto, 68 y.o., male Patient is here for a follow up for cognitive impairment. He had an MRI of the brain and neuro psych testing completed for review. Patient states things have been about the same since last visit. He denies any worsening in memory. He is sleeping well at night getting about 8 hours. He denies any vivid dream or hallucinations. Denies any new concerns at this time. Review of Systems Constitutional: Negative for appetite change, fatigue and fever. Respiratory: Negative for cough, shortness of breath and wheezing. Cardiovascular: Negative for chest pain, palpitations and leg swelling. Gastrointestinal: Negative for abdominal pain, constipation, diarrhea and nausea. Musculoskeletal: Negative for arthralgias, gait problem and myalgias. Neurological: Negative for dizziness, tremors, numbness and headaches. Memory loss Past Medical History: Diagnosis Date Chronic low back pain CVD (cardiovascular disease) (CMS/HCC) Dyslipidemia (CMS/HCC) Encounter for long-term (current) use of medications Essential hypertension, benign (CMS/HCC) Gastroesophageal reflux disease Hyperlipidemia (CMS/HCC) Low back pain Major depressive disorder, recurrent episode, mild (HCC) (CMS/HCC) Obesity with body mass index (BMI) of 30.0 to 39.9 Past Surgical History: Procedure Laterality Date TONSILLECTOMY Adenoidectomy UMBILICAL HERNIA REPAIR Family History Problem Relation Name Age of Onset Diabetes Mother Cancer Sister Hypertension Sister Cancer Brother Heart disease Brother Hypertension Brother Heart attack Brother Social History Tobacco Use Smoking status: Former Current packs/day: 0.50 Average packs/day: 0.5 packs/day for 2.0 years (1.0 ttl pk-yrs) Types: Cigarettes Passive exposure: Past Smokeless tobacco: Current Types: Chew Substance Use Topics Alcohol use: Never Allergies: Oxycodone Vitals: 09/04/24 1515 BP: 144/83 Pulse: 78 SpO2: 94% Body mass index is 41.45 kg/m . weight: 305 lb 9.6 oz Neurologic exam: Mental status: Awake, alert to person, place and time. Language is fluent without aphasia. Attention and concentration are normal. Fund of knowledge is appropriate for level of education. MOCA: 26/30 Cranial nerves: CN II: Visual acuity is normal. Visual ferrer full to confrontation. CN III, IV, : pupils equal round and reactive to light. Extraocular movements intact. No ptosis present. CN V: Facial sensation is normal. CN VII: Full and symmetric facial movement. CN VIII: Hearing is normal to finger rub bilaterally: CN IX and X: Palate elevates symmetrically. CN XI: Shoulder shrug is normal bilaterally. CN XII: Tongue is midline without atrophy or fasciculation. Motor: Strength is 5/5 throughout. Bulk is normal. Sensory: Sensation is intact to light touch throughout Four extremities. Reflexes: Deep tendon reflexes are 2+ and symmetric throughout. Coordination: Fvnxry-st-rsde testing and rapid alternating movements are normal Gait: Normal Review and summary of old records: Neuropsych analysis at [facility] on 08/15/2024: Current neuropsych eval demonstrates well-preserved cognition and memory. No compelling evidence of neurodegenerative type condition. No other organic etiology. Findings completely normal for age. Minimal psychiatric contribution. MRI of the brain on 07/15/2024: No acute abnormality. No abnormal postcontrast enhancement. chronic microvascular ischemic disease. Vitamin B12 and thyroid stimulating hormone on 07/15/2024: Normal Vitamin B12 level on 07/12/2022: Normal Assessment/Plan Diagnoses and all orders for this visit: Cognitive impairment It is my impression that the patient has subjective complaints of memory loss. A factor that may be influencing this is the patient's right more recent history of relatively lower oxygenation status. He has seen pulmonology for this. [place] cognitive assessment was 26/30. MRI of the brain does show some chronic microvascular ischemic disease but otherwise is unremarkable for acute pathology. B12 and thyroid stimulating hormone normal. Neuropsych testing demonstrates preserved cognition for patient's age. Patient does not appear to have any neurodegenerative process at this time. . Plan: Monitor clinically Pt has been fully educated on their diagnosis, lab results, treatment options, follow up plan, and return instructions documented in this encounter [facility] 08-28-2024 Hospital Discharge instructions Patient Education 08/28/2024 11:12:34 Erectile Dysfunction Erectile Dysfunction Erectile dysfunction (ED) is the inability to get or keep an erection in order to have sexual intercourse. ED is considered a symptom of an underlying disorder and is not considered a disease. ED may include: Inability to get an erection. Lack of enough hardness of the erection to allow penetration. Loss of erection before sex is finished. What are the causes? This condition may be caused by: Physical causes, such as: ?Artery problems. This may include heart disease, high blood pressure, atherosclerosis, and diabetes. ?Hormonal problems, such as low testosterone. ?Obesity. ?Nerve problems. This may include back or pelvic injuries, multiple sclerosis, Parkinson's disease, spinal cord injury, and stroke. Certain medicines, such as: ?Pain relievers. ?Antidepressants. ?Blood pressure medicines and water pills (diuretics). ?Cancer medicines. ?Antihistamines. ?Muscle relaxants. Lifestyle factors, such as: ?Use of drugs such as marijuana, cocaine, or opioids. ?Excessive use of alcohol. ?Smoking. ?Lack of physical activity or exercise. Psychological causes, such as: ?Anxiety or stress. ?Sadness or depression. ?Exhaustion. ?Fear about sexual performance. ?Guilt. What are the signs or symptoms? Symptoms of this condition include: Inability to get an erection. Lack of enough hardness of the erection to allow penetration. Loss of the erection before sex is finished. Sometimes having normal erections, but with frequent unsatisfactory episodes. Low sexual satisfaction in either partner due to erection problems. A curved penis occurring with erection. The curve may cause pain, or the penis may be too curved to allow for intercourse. Never having nighttime or morning erections. How is this diagnosed? This condition is often diagnosed by: Performing a physical exam to find other diseases or specific problems with the penis. Asking you detailed questions about the problem. Doing tests, such as: ?Blood tests to check for diabetes mellitus or high cholesterol, or to measure hormone levels. ?Other tests to check for underlying health conditions. ?An ultrasound exam to check for scarring. ?A test to check blood flow to the penis. Doing a sleep study at home to measure nighttime erections. How is this treated? This condition may be treated by: Medicines, such as: ?Medicine taken by mouth to help you achieve an erection (oral medicine). ?Hormone replacement therapy to replace low testosterone levels. ?Medicine that is injected into the penis. Your health care provider may instruct you how to give yourself these injections at home. ?Medicine that is delivered with a short applicator tube. The tube is inserted into the opening at the tip of the penis, which is the opening of the urethra. A tiny pellet of medicine is put in the urethra. The pellet dissolves and enhances erectile function. This is also called MUSE (medicated urethral system for erections) therapy. Vacuum pump. This is a pump with a ring on it. The pump and ring are placed on the penis and used to create pressure that helps the penis become erect. Penile implant surgery. In this procedure, you may receive: ?An inflatable implant. This consists of cylinders, a pump, and a reservoir. The cylinders can be inflated with a fluid that helps to create an erection, and they can be deflated after intercourse. ?A semi-rigid implant. This consists of two silicone rubber rods. The rods provide some rigidity. They are also flexible, so the penis can both curve downward in its normal position and become straight for sexual intercourse. Blood vessel surgery to improve blood flow to the penis. During this procedure, a blood vessel from a different part of the body is placed into the penis to allow blood to flow around (bypass) damaged or blocked blood vessels. Lifestyle changes, such as exercising more, losing weight, and quitting smoking. Follow these instructions at home: Medicines Take ejra-jxe-hpmmkrb and prescription medicines only as told by your health care provider. Do not increase the dosage without first discussing it with your health care provider. If you are using self-injections, do injections as directed by your health care provider. Make sure you avoid any veins that are on the surface of the penis. After giving an injection, apply pressure to the injection site for 5 minutes. Talk to your health care provider about how to prevent headaches while taking ED medicines. These medicines may cause a sudden headache due to the increase in blood flow in your body. General instructions Exercise regularly, as directed by your health care provider. Work with your health care provider to lose weight, if needed. Do not use any products that contain nicotine or tobacco. These products include cigarettes, chewing tobacco, and vaping devices, such as e-cigarettes. If you need help quitting, ask your health care provider. Before using a vacuum pump, read the instructions that come with the pump and discuss any questions with your health care provider. Keep all follow-up visits. This is important. Contact a health care provider if: You feel nauseous. You are vomiting. You get sudden headaches while taking ED medicines. You have any concerns about your sexual health. Get help right away if: You are taking oral or injectable medicines and you have an erection that lasts longer than 4 hours. If your health care provider is unavailable, go to the nearest emergency room for evaluation. An erection that lasts much longer than 4 hours can result in permanent damage to your penis. You have severe pain in your groin or abdomen. You develop redness or severe swelling of your penis. You have redness spreading at your groin or lower abdomen. You are unable to urinate. You experience chest pain or a rapid heartbeat (palpitations) after taking oral medicines. These symptoms may represent a serious problem that is an emergency. Do not wait to see if the symptoms will go away. Get medical help right away. Call your local emergency services (911 in the [place] Do not drive yourself to the hospital. Summary Erectile dysfunction (ED) is the inability to get or keep an erection during sexual intercourse. This condition is diagnosed based on a physical exam, your symptoms, and tests to determine the cause. Treatment varies depending on the cause and may include medicines, hormone therapy, surgery, or a vacuum pump. You may need follow-up visits to make sure that you are using your medicines or devices correctly. Get help right away if you are taking or injecting medicines and you have an erection that lasts longer than 4 hours. This information is not intended to replace advice given to you by your health care provider. Make sure you discuss any questions you have with your health care provider. Document Revised: 02/09/2022 Document Reviewed: 02/09/2022 [employer] Patient Education 2023 [employer]. Follow Up Care 08/27/2024 13:33:54 With:Davey PARISH, ODALYS Arrieta, URO Address: [address] [place], [place] [address] [place] [address] [phone] When: Unknown Comments:6 mos (possible T level) [facility] 08-28-2024 Note Patient Education Urology Erectile Dysfunction [...] these instructions at home: Medicines ? Take qwho-epd-ractdeb and prescription medicines only as told by [...] or tobacco. These (more content not included)... [facility] 04-16-2024 Note Chief Complaint consultation for colonoscopy [...] Brother. Primary oscar (more content not included)... [facility] Comment on above: Result Comment: Elec tronically Signed By: MARTÍN PARISH, Funmi Suazo\Date and Time Signed: 04/16/24 16:19 EDT 03-22-2024 Note [facility] Subjective Funmi Julio is a [...] complication, without long-term current use of insulin ([facility]) Family History Problem Relation Name Age of [...] that time he had ran out of [place] and this was refilled. His blood pressure [...] that they are referring him to a shoe puller for follow-up. Review of Systems Cardiovascular: Positive [...] in the morni (more content not included)... [facility] 08-31-2023 Note Patient here for 1 y ear follow up CAD, hypertension, and hyperlipidemia. Dr. Thibodeaux increased metoprolol to 100mg daily at last apt. Had routine labs in Jun 2023. Denies chest pain and SOB. Review of Systems Constitutional: Positive for malaise/fatigue. Musculoskeletal: Positive for back pain. Neurological: Positive for light-headedness. All other systems reviewed and are negative. [facility] 08-31-2023 Note Cardiovascular Medic [facility] SUBJECTIVE Chief Complaint Patient presents [...] year. 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 [facility] Evaluation + Plan note No data available for this section [facility] [place] Evaluation + Plan note Future Appointments Appointment Date:08/28/2024 10:15:00 AM Scheduled Provider:Tania Mariscal MD Location:[facility] Appointment Type:URO New Patient [facility] Evaluation + Plan note Future Appointments Appointment Date:03/05/2025 09:45:00 AM Scheduled Provider:Tania Mariscal MD Location:[facility] Appointment Type:URO Office Visit Diagnostic Tests PendingTestosterone Level Total 08/28/24 [facility] Evaluation note Diagnosis Cognitive impairment- Primary Unspecified persistent mental disorders due to conditions classified elsewhere documented in this encounter [facility] No data available for this section [facility] [employer] note No data available for this section [facility] Summary Purpose Family History No Family History Records FoundNo Family History Records Found No data available for this section No Family History Records Found No data available for this section No data available for this section No Family History Records Found Advance Directives No Advanced Directives Records FoundNo Advanced Directives Records FoundNo Advanced Directives Records FoundNo Advanced Directives Records Found Additional Source Comments (unrecognized sect ion and content) No Status Records FoundNo Status Records FoundNo Status Records FoundNo Status Records Found INFORMATION SOURCE (unrecogn ized section and content) DATE CREATED AUTHOR 07/03/2022 [facility] DATE CREATED AUTHOR AUTHOR'S ORGANIZ ATION 03/24/2024 [facility] DATE CREATED AUTHOR AUTHOR'S ORGANIZ ATION 08/29/2024 [facility] DATE CREATED AUTHOR AUTHOR'S ORGANIZ ATION 09/06/2024 [facility] EPIC Patient Care team informatio n (unrecognized section and content) 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 Specialty Start Date End Date Rachid Barillas MD [address] [place] [address] PCP - [employer] 10/27/23 Rachid Barillas MD [address] [place] [phone] PCP - General Family Medicine 07/23/24 Tammy Hardy NP [address] [place] [address] Nurse Practitioner Family Medicine 07/01/24 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 Specialty Start Date End Date Rachid Barillas MD [address] [place] [phone] PCP - [employer] 10/27/23 Rachid Barillas MD [address] [place] [phone] PCP - General Family Medicine 07/23/24 Tammy Hardy NP [address] [place] [address] Nurse Practitioner Family Medicine 07/01/24 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 Specialty Start Date End Date Rachid Barillas MD [address] [place] [phone] PCP - [employer] 10/27/23 Rachid Barillas MD [address] [place] [phone] PCP - General Family Medicine 07/23/24 Tammy Hardy NP [address] [place] [address] Nurse Practitioner Family Medicine 07/01/24 FOR RECORDS PERTAINING TO PATIENTS WHO ARE [...] BE BASED ON THE PRIMARY CLINICAL RECORDS. [facility] [employer] [facility]. provides no warranty or guarantee of the accuracy or completeness of information in this document.
[2024-09-11 04:07] LABS: Luteinizing Hormone(LH) 10.2 mIU/mL (1.7-8.6); Prolactin 10.9 ng/mL (3.6-25.2); Testosterone 220 ng/dL (264-916)
[2024-09-15 00:06] LABS: Estrogens, Total 98 pg/mL (56-213)
== END 2024-09-10 09:06 | disposition home or self-care (01) ==
LOC: LAB 09:07
PROVIDERS: Visit Provider Nurse Practitioner Family
DX: E29.1 Testicular hypofunction (principal)
CPT/HCPCS: 36415; 82672; 83002; 84146; 84403

== ENCOUNTER 2025-03-12 08:24 | Outpatient (OUT) | payer MEDICARE, SELFPAY ==
--- OUTSIDE RECORDS SUMMARY | 2025-03-12 08:30 | XMS_ITS | CCD ---
Author Organization [facility] Care Team Providers Care Wire Spinner Name Role Phone SADIA, MARIANELA Admitting Unavailable SADIA, MARIANELA Attending Unavailable MISC, DR CACIEDO Primary Care Unavailable SADIA, MARIANELA Consulting Unavailable SADIA, MARIANELA Admitting Unavailable SADIA, MARIANELA Attending Unavailable MISC, DR CAICEDO Primary Care Unavailable ZIEBER, DR SHAZIA Santos Consulting Unavailable SADIA, MARIANELA Consulting Unavailable SADIA, MARIANELA Admitting Unavailable SADIA, MARIANELA Attending Unavailable MISC, DR CAICEDO Primary Care Unavailable SADIA, MARIANELA Admitting Unavailable SADIA, MARIANELA Attending Unavailable MISC, DR CAICEDO Primary Care Unavailable JOYCE CANTRELL Attending Unavailable RONDA THIBODEAUX Attending Unavailable SHAIKH MORENO Primary Care Physician [phone] DAVID, MS. HCIOMA BADILLO Primary Care P katty Rachid Barillas MD Unavailable Chioma Hardy NP Unavailable Rachid Barillas MD Primary Care Provider PAWEL SORIA Attending Unavailable SHAIKH MORENO Attending Unavailable MARTIR DURHAM Attending Unavailable SHAIKH MORENO Referring Unavailable SHAIKH MORENO Attending Unavailable TANIA LUCERO Attending Unavailable CHIOMA HARDY Attending UnavailDESHAWN Braxton Attending Unavailable TANIA LUCERO Referring Unavailable TANIA LUCERO Attending Unavailable CHIOMA HARDY Attending UnavailCHARISMA Fregoso Attending Unavailab CHIOMA Shen Referring Unavailviktor HARDY [facility] Tania Hansen [facility] Un[facility] Att[facility] Tania Hansen Attending Unavailable Funmi RESENDIZ Attending Unavailable RACHID BARILLAS Referring Unavailable Funmi RESENDIZ Attending [facility] Tania Hansen Attending Unavailable Allergies Allergy Classification Reported Allergen(s) Allergy Type Date of Onset Reaction(s) Facility (1 source) oxyCODONE Drug Allergy 2 [facility] Repository (20 sources) oxyCODONE; Translations: [OXYCODONE] Drug Allergy 2 Dyspnea (finding), Weal (disorder), [facility] Repository Medications Current Medications Medication Drug Class(es) Dates Sig (Normalized) Sig (Original) 0.25 MG, 0.5 MG Dose 3 ML semaglutide 0.68 MG/ML Pen Injector [Ozempic] (2 sources) Start: 08-28-2024 inject 0.5 mg by subcutaneous injection every week Ozempic 2 mg/3 mL (0.25 mg or 0.5 mg dose) subcutaneous solution 0.5 mg, SubCutaneous, qWeek Start Date: 08/28/24 Status: Ordered [id number] actuat albuterol 0.09 mg/actuat metered dose inhaler (20 sources) beta2-Adrenergic Agonist Start: 11-16-2023 End: 12-07-2024 take 2 puff(s) by inhalation every four hours for wheezing albuterol HFA (Ventolin HFA) 90 mcg/act inhaler Indications: Acute bronchitis with wheezing Inhale 2 puffs every 4 (four) hours if needed for wheezing 18 g 07/23/2024 Active Albuterol (Eqv-Ventolin HFA) 90 mcg/inh inhalation aerosol (2 sources) Start: 08-28-2024 take 2 puff(s) by inhalation every four hours Albuterol (Eqv-Ventolin HFA) 90 mcg/inh inhalation aerosol 2 puff(s), Inhalation, q4hr Start Date: 08/28/24 Status: Ordered amLODIPine 10 mg oral tablet (20 sources) Dihydropyridine Calcium Channel Zach Start: 03-20-2024 End: 05-06-2025 take 1 tablet by mouth once daily amLODIPine 10 mg Tab 10 mg = 1 tab(s), Oral, Daily, Refills(s) 0 Start Date: 03/20/24 Status: Ordered anastrozole 1 mg oral tablet (1 source) Aromatase Inhibitor Start: 12-18-2024 End: 06-16-2025 take 1 tablet by mouth every week anastrozole 1 mg Tab 1 mg = 1 tab(s), Oral, qWeek, X 90 day(s), # 13 tab(s), Refills(s) 1, Pharmacy: [id number], 182, cm, 12/18/24 11:48:00 EST, Height/Length Dosing, 139, kg, 12/18/24 11:48:00 EST, Weight Dosing Start Date: 12/18/24 Stop Date: 06/16/25 Status: Ordered aspirin 81 mg chewable tablet (20 sources) Platelet Aggregation Inhibitor, Nonsteroidal Anti-inflammatory Drug Start: 03-20-2024 End: 11-07-2024 aspirin 81 mg Chew Tab 81 mg = 1 tab(s), Chewed, Daily, Refills(s) 0 Start Date: 03/20/24 Status: Ordered atorvastatin 40 mg oral tablet (20 sources) HMG-CoA Reductase Inhibitor Start: 05-20-2024 End: 11-07-2024 take 1 tablet by mouth once daily atorvastatin 40 mg Tab 40 mg = 1 tab(s), Oral, Daily Start Date: 08/28/24 Status: Ordered carbamide peroxide 65 mg/ml otic solution (2 sources) Start: 07-23-2024 End: 07-27-2024 carbamide peroxide (Debrox) 6.5 % otic solution Indications: Cerumen debris on tympanic membrane of both ears Administer 3-5 drops into affected ear(s) in the morning and 3-5 drops before bedtime. Do all this for 4 days. 15 mL 07/23/2024 07/27/2024 Active fexofenadine hydrochloride 180 mg oral tablet (20 sources) Histamine-1 Receptor Antagonist Start: 08-28-2024 End: 11-07-2024 fexofenadine 180 mg Tab 0 Refill(s), Refills(s) 0 Start Date: 08/28/24 Status: Ordered take 1 tablet by mouth in the mo rning fexofenadine (Lamar Allergy) 180 MG tablet Take 1 tablet by mouth in the morning. Active hydroCHLOROthiazide 12.5 mg / lisinopril 20 mg oral tablet (20 sources) Thiazide Diuretic, Angiotensin Converting Enzyme Inhibitor Start: 05-20-2024 End: 05-06-2025 take 1 tablet by mouth once daily lisinopril-hydroCHLOROthiazide 20-12.5 MG tablet Indications: Essential (primary) hypertension (CMS/HCC) Take 1 tablet by mouth Daily 90 tablet 1 11/07/2024 05/06/2025 Active Start: 03-20-2024 take 1 tablet by gareth th twice daily hydrochlorothiazide-lisinopril 12.5 mg-2 0 mg Tab 1 tab(s), Oral, BID, Refill(s) 0 Start Date: 03/20/24 Status: Ordered 24 hr isosorbide mononitrate 60 mg extended release oral tablet (20 sources) Nitrate Vasodilator Start: 03-20-2024 End: 11-07-2024 take 1 tablet by mouth once daily in the morning isosorbide mononitrate 60 mg ER Tab 60 mg = 1 tab(s), Oral, qAM, Refills(s) 0 Start Date: 03/20/24 Status: Ordered metFORMIN hydrochloride 850 mg oral tablet (20 sources) Biguanide Start: 03-20-2024 End: 11-07-2024 take 1 tablet by mouth once daily metFORMIN (Glucophage) 850 MG tablet Indications: Type 2 diabetes mellitus without complication, without long-term current use of insulin (CMS/HCC) Take 1 tablet (850 mg) by mouth Daily 90 tablet 1 11/07/2024 Active 24 hr metoprolol succinate 100 mg extended release oral tablet (20 sources) beta-Adrenergic Zach Start: 03-20-2024 take 1 tablet by mouth once daily metoprolol 100 mg ER Tab 100 mg = 1 tab(s), Oral, Daily, Refills(s) 0 Start Date: 03/20/24 Status: Ordered Start: 08-31-2023 End: 01-15-2026 take 1 tablet by mouth every twenty-four hours in the morning metoprolol succinate XL (Toprol-XL) 100 MG 24 hr tablet Indications: Primary hypertension (CMS/HCC) Take 1 tablet (100 mg) by mouth in the morning. 30 tablet 14 11/07/2024 01/15/2026 Active omeprazole 20 mg delayed release oral capsule (20 sources) Proton Pump Inhibitor Start: 03-20-2024 End: 11-07-2025 take 1 capsule by mouth once daily omeprazole 20 mg Cap-DR 20 mg = 1 cap(s), Oral, Daily, Refills(s) 0 Start Date: 03/20/24 Status: Ordered Ozempic, 1 MG/DOSE, 4 MG/3ML solution pen-injector (1 source) Start: 11-07-2024 inject 1 mg by subcutaneous injection every week Ozempic, 1 MG/DOSE, 4 MG/3ML solution pen-injector Indications: Type 2 diabetes mellitus without complication, without long-term current use of insulin (CMS/[facility]) INJECT 1mg SUBCUTANEOUSLY (UNDER THE SKIN) EVERY WEEK 3 mL 12 11/07/2024 Active PARoxetine hydrochloride 40 mg oral tablet (20 sources) Serotonin Reuptake Inhibitor Start: 03-20-2024 End: 11-07-2025 take 1 tablet by mouth once daily Paxil 40 mg Tab 40 mg = 1 tab(s), Oral, Daily, Refills(s) 0 Start Date: 03/20/24 Status: Ordered Semaglutide,0.25 or 0.5MG/DOS, (Ozempic, 0.25 or 0.5 MG/DOSE,) 2 MG/3ML solution pen-injector (10 sources) Start: 08-22-2024 End: 11-07-2024 Semaglutide,0.25 or 0.5MG/DOS, (Ozempic, 0.25 or 0.5 MG/DOSE,) 2 MG/3ML solution pen-injector Indications: Type 2 diabetes mellitus without complication, without long-term current use of insulin (CMS/HCC) Inject 0.5 mg under the skin 1 (one) time per week 3 mL 2 08/22/2024 11/07/2024 Discontinued (Dose adjustment) Start: 08-22-2024 Semaglutide,0. 25 or 0.5MG/DOS, (Ozempic, 0.25 or 0.5 MG/DOSE,) 2 MG/3ML solution pen-injector Indications: Type 2 diabetes mellitus without complication, without long-term current use of insulin (CMS/HCC) Inject 0.5 mg under the skin 1 (one) time per week 3 mL 2 08/22/2024 Active Start: 08-22-2024 End: 09-21-2024 Semaglutide,0.25 or 0.5MG/DO S, (Ozempic, 0.25 or 0.5 MG/DOSE,) 2 MG/3ML solution pen-injector Indications: Type 2 diabetes mellitus without complication, without long-term current use of insulin (CMS/HCC) Inject 0.5 mg under the skin 1 (one) time per week 3 mL 2 08/22/2024 09/21/2024 Active testosterone undecanoate 237 mg oral capsule (1 source) Androgen Start: 12-18-2024 take 1 capsule by mouth twice daily Jatenzo 237 mg oral capsule 237 mg = 1 cap(s), Oral, BID, # 60 cap(s), Refills(s) 11, Pharmacy: [facility], 182, cm, 12/18/24 11:48:00 EST, Height/Length Dosing, 139, kg, 12/18/24 11:48:00 EST, Weight Dosing Start Date: 12/18/24 Status: Ordered Completed/Discontinued Medications Medication Drug Class(es) Dates Sig (Normalized) Sig (Original) Ozempic, 0.25 or 0.5 MG/DOSE, 2 MG/3ML solution pen-injector (9 sources) Start: 05-23-2024 End: 08-21-2024 Ozempic, 0.25 or 0.5 MG/DOSE, 2 MG/3ML solution pen-injector Indications: Type 2 diabetes mellitus without complication, without long-term current use of insulin (CMS/HCC) INJECT 0.25mg SUBCUTANEOUSLY EVERY WEEK for FOUR weeks; then INJECT 0.5mc SUBCUTANEOUSLY EVERY WEEK 3 mL 05/23/2024 08/21/2024 Discontinued (Reorder) Start: 05-23-2024 Ozempic, 0.25 or 0.5 MG/DOSE, 2 MG/3ML solution pen-injector Indications: Type 2 diabetes mellitus without complication, without long-term current use of insulin (CMS/HCC) INJECT 0.25mg SUBCUTANEOUSLY EVERY WEEK for FOUR weeks; then INJECT 0.5mc SUBCUTANEOUSLY EVERY WEEK 3 mL 05/23/2024 Active 1 mg dose 1.5 ml semaglutide 1.34 mg/ml pen injector (3 sources) Start: 11-07-2024 End: 11-07-2024 inject 1 mg by subcutaneous injection every week semaglutide (Ozempic) 2 MG/1.5ML solution pen-injector Indications: Type 2 diabetes mellitus without complication, without long-term current use of insulin (CMS/HCC) Inject 1 mg under the skin 1 (one) time per week 2 each 11/07/2024 11/07/2024 Discontinued Start: 11-07-2024 inject 1 mg by subcu taneous injection every week semaglutide (Ozempic) 2 MG/1.5ML solution pen-injector Indications: Type 2 diabetes mellitus without complication, without long-term current use of insulin (CMS/HCC) Inject 1 mg under the skin 1 (one) time per week 2 each 11/07/2024 Active Problems Active Problems Problem Classification Problem Date Documented Date Episodic/Chronic Abdominal hernia (2 sources) Umbilical hernia 08-28-2024 Episodic Alcohol-related disorders (4 sources) History of alcohol abuse; Translations: [Alcohol abuse, in remission] 07-30-2024 Chronic Chronic obstructive pulmonary disease and bronchiectasis (20 sources) Suspected respiratory disease; Translations: [Chronic obstructive pulmonary disease, unspecified] Onset: 01-25-2024 01-25-2024 Chronic Coronary atherosclerosis and other heart disease (20 sources) Atherosclerotic heart disease of [place] coronary artery without angina pectoris; Translations: [Coronary arteriosclerosis] Onset: 01-12-2022 Chronic Deficiency and other anemia (4 sources) Anemia 03-20-2024 Episodic Diabetes mellitus without complication (20 sources) Diabetes mellitus; Translations: [Type 2 diabetes mellitus] Onset: 11-13-2020 03-20-2024 Chronic Disorders of lipid metabolism (20 sources) Mixed hyperlipidemia; Translations: [Dyslipidemia] Onset: 11-13-2020 Chronic Esophageal disorders (20 sources) Gastroesophageal reflux disease; Translations: [Gastro-esophageal reflux disease without esophagitis] Onset: 11-13-2020 03-20-2024 Chronic Essential hypertension (20 sources) Essential (primary) hypertension; Translations: [Benign essential hypertension] Onset: 05-13-2013 Chronic Mood disorders (20 sources) Depressive disorder; Translations: [Dysthymic disorder] Onset: 11-13-2020 03-20-2024 Chronic Other endocrine disorders (1 source) Testicular hypofunction; Translations: [Testicular hypofunction] Onset: 12-18-2024 Chronic Other endocrine disorders (1 source) Male hypogonadism 12-18-2024 Chronic Other hereditary and degenerative nervous system conditions (20 sources) Impaired cognition; Translations: [Mild cognitive impairment, so stated] Onset: 05-23-2024 05-23-2024 Chronic Other male genital disorders (4 sources) Male erectile dysfunction, unspecified; Translations: [Erectile dysfunction] Onset: 08-28-2024 Chronic Other male genital disorders (20 sources) Acquired buried penis; 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] Onset: 07-23-2024 Chronic Other nervous system disorders (2 sources) Impaired cognition; Translations: [Other symptoms and signs involving cognitive functions and awareness] 09-04-2024 Episodic Other nutritional; endocrine; and metabolic disorders (1 source) Morbid obesity; Translations: [Morbid (severe) obesity due to excess calories] Onset: 04-16-2024 Chronic Other nutritional; endocrine; and metabolic disorders (20 sources) Body mass index 40+ - severely obese; Translations: [Body mass index (BMI) 40.0-44.9, adult] Onset: 05-23-2024 04-16-2024 Chronic Other nutritional; endocrine; and metabolic disorders (4 sources) Obese class III 03-20-2024 Chronic Other screening for suspected conditions (not mental disorders or infectious disease) (2 sources) Screening for malignant neoplasm of colon done; Translations: [Encounter for screening for malignant neoplasm of colon] Onset: 04-16-2024 Episodic Residual codes; unclassified (6 sources) Obstructive sleep apnea syndrome; Translations: [Obstructive sleep apnea (adult) (pediatric)] 08-28-2024 Chronic Residual codes; unclassified (19 sources) Sleep apnea; Translations: [Sleep apnea, unspecified] Onset: 04-16-2012 01-25-2024 Chronic Residual codes; unclassified (3 sources) Reduced libido; Translations: [Decreased libido] Onset: 08-28-2024 Episodic Unclassified (4 sources) Patient encounter status 04-16-2024 Unclassified (2 sources) Calcified granuloma of lung 08-28-2024 Unclassified (3 sources) Patient on antidepressant monitoring plan Onset: 11-07-2024 11-07-2024 Past or Other Problems Problem Classification Problem Date Documented Da te Episodic/Chronic Acute bronchitis (20 sources) Acute bronchitis co-occurrent with wheeze; Translations: [Acute bronchitis, unspecified] Onset: 11-16-2023 Resolved: 01-25-2024 01-25-2024 Episodic Diabetes mellitus without complication (3 sources) Prediabetes; Translations: [Impaired fasting glycemia] Onset: 01-14-2022 08-28-2024 Episodic Mood disorders (19 sources) Mood disorders Onset: 05-23-2024 05-23-2024 Other and unspecified benign neoplasm (19 sources) Pigmented skin lesion ; Translations: [Melanocytic nevi, unspecified] Onset: 01-25-2024 Resolved: 05-23-2024 05-23-2024 Episodic Other ear and sense organ disorders (20 sources) Excessive cerumen in ear canal ; Translations: [Impacted cerumen, bilateral] Onset: 07-23-2024 07-23-2024 Episodic Other lower respiratory disease (5 sources) Other forms of dyspnea; Translations: [OTHER FORMS OF DYSPNEA] Onset: 01-14-2022 Episodic Other lower respiratory disease (20 sources) Solitary nodule of lung; Translations: [Solitary pulmonary nodule] Onset: 07-20-2022 11-16-2023 Episodic Otitis media and related conditions (19 sources) Acute suppurative otitis media without spontaneous rupture of ear drum; Translations: [Acute suppurative otitis media without spontaneous rupture of ear drum, bilateral] Onset: 11-16-2023 Resolved: 01-25-2024 01-25-2024 Episodic Residual codes; unclassified (4 sources) Amnesia; Translations: [Other amnesia] 07-30-2024 Episodic Results Test Name Value Interpretation Reference Range Facility Ambulatory Visit Summaryon 0 12-18-2024 Ambulatory Visit Summary Ambulatory Visit Summary NORIFUNMI LANGLEY A :1955 Visit Date:12/18/2024 Ambulatory Visit Instructions Your Diagnosis ED (erectile dysfunction) Hypogonadism male Acquired buried penis Your Care Team Attending Physician - Davey PARISH, Tania Angel Primary Care Physician - DAVID, CHIOMA BADILLO This Is Your Medications List anastrozole (anastrozole 1 mg Tab) testosterone (Jatenzo 237 mg oral capsule) Contact prescribing physician if questions or concerns [...] umbilical hernia, Tonsillectomy and adenoidectomy. Discharge Vitals Temperature (Oral) 37 ???C Heart Rate (Peripheral) 80 Blood Pressure 150/98 Height 182 cm Height 72 in Weight 139 kg Weight 306.442 lb BMI 41.96 What to do next Scheduled Follow-Up Appointments Monday 8:30 AM EDT With: Where: [facility] [address] [id number]- Monday 10:00 AM EDT With: Tania Mariscal MD Where: [facility] [address] [place] [address]- You Need to Schedule the Following Appointments Follow Up with Tania Mariscal MD, URL, URO When: In 3 months Comments: wLabs Where: You Need to Complete the Following Hematocrit, Blood, Routine collect, *Est. 03/18/25 +/- 21 day(s), Order for future visit, Lab Collect, Hypogonadism male, Not Required, Print Label By Order Location PSA Total, Blood, Routine collect, *Est. 03/18/25 +/- 21 day(s), Order for future visit, Lab Collect, Hypogonadism male Prostate cancer screening, Required & Missing, Print Label By Order Location Testosterone Level Total, Blood, Routine collect, *Est. 03/18/25 +/- 21 day(s), Order for future visit, Lab Collect, Hypogonadism male, Not Required, Print Label By Order Location Medications What How Much When Instructions New anastrozole (anastrozole 1 mg Tab) 1 Tablets By Mouth Every week Duration: 90 Days Refills: 1 Pickup at [facility] New testosterone (Jatenzo 237 mg oral capsule) 1 Capsules By Mouth 2 times a day Refills: 11 Pickup at [facility] Unchanged albuterol (Albuterol (Eqv-Ventolin HFA) 90 mcg/ [...] Contact prescribing physician if questions or concerns Pharmacy Information [facility]: [id number] [phone] Allergies oxyCODONE (SOB - Shortness of breath, Hives) Problems Ongoing - Any problem that you are currently receiving treatment for. Acquired buried penis A (more content not included)... Normal [facility] Urology Office/Clinic Noteon 12-18-2024 Urology Office/Clinic Note Urology Office/Clinic Note Chief Complaint testosterone levels HPI Staff 69yr old male here to 6mo f/u with testosterone level & to discuss treatment options. Previous Dx: ED, low libido, acquired buried penis, screening PSA Testosterone: 09/03/24 - 242 Dysuria: _no Incomplete bladder emptying: _no Hematuria: _no Frequency: _q3-4 hrs Urgency: _no Nocturia: _2x Stream: _normal Leaking: _no Post void dripping: _no Wearing pads/ Depends: _no Urge incontinence: _no Stress incontinence: _no Incontinence without Sensory Awareness: _no Abdominal pain: _no Flank pain: _no Sexual complaints: _ History of Present Illness Tests reviewed: reviewed UA and labs. I have reviewed the previous health record information and history for this patient from . I have reviewed and verified the staff HPI to be accurate for this encounter. There have been no associated fever, chills, flank pain, or blood in the urine. Denies any urinary infections since last encounter. Review of Systems PHQ Score Initial [...] See HPI. Physical Exam Vitals & Measurements T: 37 ???C(Oral) HR: 80(Peripheral) BP: 150/98 HT: 72 in HT: 182 cm WT: 139 kg WT: 306.442 lb BMI: 41.96 General Appearance: alert, no distress, well nourished, well developed male. Assessment/Plan Funmi is a 69 yo male pt here today to address low testosterone levels. IPSS 3(9). UA today negative for blood and infection. Not taking any prostate meds. No bother with urination. 1. ED (erectile dysfunction) (N52.9: Male erectile dysfunction, unspecified) JAVAN 1(1) Pt medication review shows isosorbide mononitrate daily, pt unable to take PDE5i. Advised pt that his only options would be ICI or NAVI. PT states that he would not like to treat this at this time. -Consider ICI or NAVI - information provided -DM control, cont following w/ PCP -Heart healthy diet, weight loss 2. Hypogonadism male (E29.1: Testicular hypofunction) Labs 09/10/24 - Estrogen 98, LH 10.2, Prolactin 10.9 Testosterone ([id number]) 09/03/24 - 242 09/10/24 - 220 Discussed levels with pt. Discussed TRT options for pt, risks and benefits addressed. Pt states that he would like to see if he can start Jatenzo and if it is not covered then we would do injections. Follow up in 3 mos w/labs. All questions/concerns were discussed. Pt to call the office if he encounters any issues prior. Pt acknowledges understanding. -Will send Jatenzo 237mg BID. If the Jatenzo is too costly, then we will start Testosterone Inj IM 100mg q2wks. Discussed the medication side effects, and the patient will monitor closely for these, as well as for symptom improvement. If severe side effects occur, the medication should be stopped and the office notified. -Will order Testosterone, HCT and PSA for pt to get prior to appt after starting whichever form of TRT. If pt does start injections, pt is to get the labs at the group home point of getting the injections. Pt will be getting these done IO with a nurse. -Will start Anastrozole 1mg once a wk. Discussed the medication side effects, and the patient will monitor closely for these, as well as for symptom improvement. If severe side effects occur, the medication should be stopped and the office notified. 3. 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 Reports he was circumcised. Only complaint with urination is difficulty controlling stream. Shares DM was uncontrolled when this first start. Most recent A1c 07/15/24 - 6.3. Has gained 45 lbs since retiring in Nov 2022. Not addressed at today's visit. -DM control, cont following w/ PCP -Heart healthy diet, weight loss Follow-up With When Contact Information Tania Mariscal MD, URL, URO In 3 months Additional Instructions: wLabs Patient Education Hypogonadism, Male I, Eileen Moody, personally scribed for Dr. Mariscal on 12/18/2024 12:04:58. . Documentation recorded by the scribe, Eileen Moody, accurately reflects the services(s) I performed and decisions made by me. Authenticated by Dr. Mariscal on 12/18/2024 12:10:03. Problem List/Past Medical History Ongoing Acquired buried penis Anemia Benign essential hypertension BMI 40.0-44.9, adult Calcified granuloma of lung Class 3 obesity Coronary arteriosclerosis Depressive disorder Diabetes Dyslipidemia ED (erectile (more content not included)... Normal [facility] Comment on above: Result Comment: Elec tronically Signed By: Tania Mariscal MD\.br\Date and Time Signed: 12/18/24 12:10 EST\.br\Electronically Co-Signed By: Eileen Moody\.br\Date and Time Co-Signed: 12/18/24 12:05 EST ALL LUTEINIZING HORMONEon LUTEINIZING HORMONE(LH) 10.2 Abnormal [facility] ALL TESTOSTERONEon Testosterone [Mass/Vol] 220 ng/dL Abnormal 264 - 916 ng/dL [facility] Comment on above: Adult male reference interval is based on a population of healthy nonobese males (BMI <30) between 19 and 39 years old. Veronica et.al. JCEM 2017,102;[id number]. PMID: [id number]. No Panel Informationon 09-15 Interpretation and review of laboratory results Abnormal [facility] ESTROGENon 09-15-2024 ESTROGENS, TOTAL 98 pg/mL 56 - 213 pg/mL [facility] Comment on above: Prepubertal <40 Performed at: [facility] [id number] [employer]: Wilber Reina MD, Phone: [phone] [facility] PROLACTINon 09-15-2024 PROLACTIN 10.9 ng/mL 3.6 - 25.2 ng/mL [facility] Comment on above: Performed at: [facility] [address] [id number] [employer]er: Tato Hall PhD, Phone: [phone] ALL TESTOSTERONEon Interpretation and review of laboratory results Abnormal [facility] Testosterone [Mass/Vol] 242 ng/dL Abnormal 264 - 916 ng/dL [facility] Comment on above: Adult male reference interval is based on a population of healthy nonobese males (BMI <30) between 19 and 39 years old. chelsie Martin.al. JCEM 2017,102;8117-8747. PMID: [id number]. Performed at: [facility] [address] [id number] [employer] Dealer: Tato Hall PhD, Phone: [phone] [facility] Ambulatory Visit Summaryon 1 Ambulatory Visit Summary Ambulatory Visit Summary FUNMI JULIO :1955 Visit Date:08/28/2024 Ambulatory Visit Instructions Your Diagnosis ED (erectile dysfunction) Low libido Acquired buried penis Screening PSA (prostate specific antigen) Your Care Team Attending Physician - Tania Mariscal MD Primary Care Physician - MS. CHIOMA HARDY Referring Physician - MS. CHIOMA HARDY This Is Your Medications List Contact [...] Tania Mariscal MD Where: [facility] [address] [place] [address] You Need to Schedule the Following Appointments Follow Up with Davey PARISH, Tania Angel, URL, URO When: Where: [address] [place] [address]- [phone] Medications What How Much When Instructions Unchanged [...] the cau (more content not included)... 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 Hemoglobin [...] 68 yo male new pt referred by Chioma Hardy NP for acquired buried penis. IPSS [...] testosterone (7-11 AM). Plans to go to [facility]. -If low, will confirm with repeat T, [...] Risks of elevat (more content not included)... [facility] Comment on above: Result Comment: Elec tronically Signed By: Davey PARISH, Tania Onofre.br\Date and Time Signed: 08/28/24 11:36 EDT Reminderson 05-31-2024 Reminders Reminders From: Tracy Walls LPN To: N - Clinical; Sent: 05/31/2024 09:11:26 EDT Show up: 04/29/2034 07:00:00 EDT Subject: colonoscopy recall Due Date/Time: 05/29/2034 07:00:00 EDT Reminder/Recall Patient due for screening colonoscopy 05/29/2034. [facility] Insurance Correspondenceon 0 05-17-2024 Insurance Correspondence [id number]# 1.00TIFF [facility] Consent for Procedure/Surger yon 04-18-2024 Consent for Procedure/Surgery [id number]#1. 00TIFF [facility] Facesheeton 04-17-2024 Facesheet [id number]# 1.00TIFF [facility] Ambulatory Visit Summaryon 0 04-16-2024 Ambulatory Visit Summary FUNMI JULIO :1955 Visit Date:04/16/2024 Ambulatory Visit Instructions Your Diagnosis Screening for malignant neoplasm of colon Class 3 obesity Your Care Team Attending Physician - MARTÍN PARISH, Funmi Santos Primary Care Physician - TIFFANIE PARISH, Referring Physician - RACHID BARILLAS MD This [...] for choosing us for your care. Normal [facility] Office Visiton 03-22-2024 Follow-up visit [id number] Funmi Julio 1955 M Date Provider Department Center 03/22/2024 DEV RONDA EVIE Amina Mark Family History Problem Relation Age of Onset Hypertension Brother Heart attack Other Family Status - Relation Status Age at Brother Other Level of Service:[address] [place] OFFICE/OUTPATIENT ESTABLISHED LOW MDM 20 MIN Reason for Visit and Comments: Follow-up [363396] - 6 month Normal [facility] 36on 09-15-2023 36 BP looks better. Continue all his current BP medications. Recommend he continues to monitor his BP a couple times a week and let us know if consistently runs elevated. Plan to follow-up in 6 months as planned or sooner if needed. Thanks! Normal [facility] Office Visiton 08-31-2023 Follow-up visit [id number] Funmi Julio 1955 M Date Provider Department Center 08/31/2023 JOYCE RICKETTS EVIE Smithevue Mark Family History Problem Relation Age of Onset Hypertension Brother Heart attack Other Family Status - Relation Status Age at Brother Other Level of Service:[address]7634 [place] OFFICE/OUTPATIENT ESTABLISHED LOW MDM 20-29 MIN Reason for Visit and Comments: Coronary Artery Disease [187] Hypertension [662882] Hyperlipidemia [182] Normal [facility] CARDIAC STRESS TESTon 2021 CARDIAC STRESS [...] interpreted and reported in a separate dictation. [facility] Signed and Approved by: DR PADDY STANFORD 02/01/2022 09:17:00 Normal [facility] NM STRESS/REST MULTIon 01-25 NM STRESS/REST MULTI Patient: FUNMI JULIO Exam Date: 01/25/2022 : 1955 Gender:M Ordering : MARIANELA MCCULLOUGH Admission #: [id number] Family : Order #: [id number] CLICK HERE TO VIEW EXAM RADIOLOGY REPORT [...] wall motion and ejection fraction. Dictated by: Shazia Irvin M.D. on 01/26/2022 at 11:46 Approved by: Shazia Irvin M.D. on 01/26/2022 at 11:49 Normal [facility] BNPon 01-12-2022 NT PRO BNP <11.1 Normal <=900.0 [facility] Comment on above: Performed By: #### B RESIDENTIAL [employer]AR SALES CONSULTANT, CMP, LIPID, CRP #### [facility] [address] [place] [address] Dr. Ramesh Min CBC AUTO DIFFon 01-12-2022 BASO # 0.1 103/ul Normal 0.0-0.1 [facility] Comment on above: Performed By: #### C BC #### [facility] [address] [place] [address] Dr. Ramesh Min Basophils/100 WBC (Bld) 0.5 % Normal 0.2-2.0 [facility] Comment on above: Performed By: #### C BC #### [facility] [address] [place] [address] Dr. Ramesh Min EO # 0.2 103/ul Normal 0.0-0.7 [facility] Comment on above: Performed By: #### C BC #### [facility] [address] [place] [address] Dr. Ramesh Min Eosinophils/100 WBC (Bld) 2.0 % Normal 0.9-7.0 [facility] Comment on above: Performed By: #### C BC #### [facility] [address] [place] [address] Dr. Ramesh Min Erythrocyte distribution width (RBC) [Ratio] 13.1 % Normal 11.0-15.0 [facility] Comment on above: Performed By: #### C BC #### [facility] [address] [place] [address] Dr. Ramesh Min Hematocrit (Bld) [Volume fraction] 44.2 % Normal 42.0-54.0 [facility] Comment on above: Performed By: #### C BC #### [facility] [address] [place] [address] Dr. Ramesh Min Hemoglobin (Bld) [Mass/Vol] 14.8 g/dL Normal 14.0-18.0 [facility] Comment on above: Performed By: #### C BC #### [facility] [address] [place] [address] Dr. Ramesh Min IG # 0.05 10e3/ul Critically high 0.00-0.03 [facility] Comment on above: Performed By: #### C BC #### [facility] [address] [place] [address] Dr. Ramesh Min IG % 0.5 % Normal 0.0-0.5 [facility] Comment on above: Performed By: #### C BC #### [facility] [address] [place] [address] Dr. Ramesh Min LYMPH # 2.4 103/ul Normal 1.2-3.8 [facility] Comment on above: Performed By: #### C BC #### [facility] [address] [place] [address] Dr. Ramesh Min Lymphocytes/100 WBC (Bld) 25.0 % Normal 20.5-60.0 [facility] Comment on above: Performed By: #### C BC #### [facility] [address] [place] [address] Dr. Ramesh Min MANUAL DIFF REQ NO Normal [facility] Comment on above: Performed By: #### C BC #### [facility] [address] [place] [address] Dr. Ramesh Min MCH (RBC) [Entitic mass] 30.5 pg Normal 25.9-34.0 [facility] Comment on above: Performed By: #### C BC #### [facility] [address] [place] [address] Dr. Ramesh Min MCHC (RBC) [Mass/Vol] 33.5 g/dL Normal 29.9-35.2 [facility] Comment on above: Performed By: #### C BC #### [facility] [address] [place] [address] Dr. Ramesh Min MCV (RBC) [Entitic vol] 91.1 fL Normal 80.0-94.0 [facility] Comment on above: Performed By: #### C BC #### [facility] [address] [place] [address] Dr. Ramesh Min MONO # 0.8 103/ul Normal 0.3-0.8 [facility] Comment on above: Performed By: #### C BC #### [facility] [address] [place] [address] Dr. Ramesh Min Monocytes/100 WBC (Bld) 8.8 % Normal 1.7-12.0 [facility] Comment on above: Performed By: #### C BC #### [facility] [address] [place] [address] Dr. Ramesh Min NEUT # 6.1 103/ul Normal 1.4-6.5 [facility] Comment on above: Performed By: #### C BC #### [facility] [address] [place] [address] Dr. Ramesh Min Neutrophils/100 WBC (Bld) 63.2 % Normal 43.0-75.0 [facility] Comment on above: Performed By: #### C BC #### [facility] [address] [place] [address] Dr. Ramesh Min Platelet mean volume (Bld) [Entitic vol] 8.7 fL Critically low 9.5-13.5 [facility] Comment on above: Performed By: #### C BC #### [facility] [address] [place] [address] Dr. Ramesh Min PLT 330 103/ul Normal 150-450 [facility] Comment on above: Performed By: #### C BC #### [facility] [address] [place] [address] Dr. Ramesh Min RBC 4.85 106/ul Normal 4.70-6.10 [facility] Comment on above: Performed By: #### C BC #### [facility] [address] [place] [address] Dr. Ramesh Min WBC 9.6 103/ul Normal 4.0-11.0 [facility] Comment on above: Performed By: #### C BC #### [facility] [address] [place] [address] Dr. Ramesh Min CRPon 01-12-2022 CRP 0.7 mg/dL Normal <=1.0 [facility] Comment on above: Performed By: #### B RESIDENTIAL [employer] SALES CONSULTANT, CMP, LIPID, CRP #### [facility] [address] [address] [address] Ramesh Min ECHOCARDIO M/2D COMPLETEon 0 01-12-2022 ECHOCARDIO M/2D COMPLETE Patient: FUNMI JULIO Exam Date: 01/12/2022 : 1955 Gender:M Ordering : MARIANELA MCCULLOUGH Admission #: [id number] Family : Order #: [id number] CLICK HERE TO VIEW EXAM ECHOCARDIOGRAM REPORT [...] Thibodeaux M.D. on 01/13/2022 at 08:51 Normal [facility] GLYCOHEMOGLOBIN A1Con 2021 ADA RECOMMENDATION ADA THERAPEUTIC TARGET 6.0 - 7.0 ACTION SUGGESTED > 7.0 Normal [facility] Comment on above: Performed By: #### A 1C #### [facility] [address] [place] [address] Dr. Ramesh Min Glucose [Mass/Vol] 137 mg/dL Normal [facility] Comment on above: Performed By: #### A 1C #### [facility] [address] [address] [address] Ramesh Min HbA1c (Bld) [Mass fraction] 6.4 % Critically high <=6.0 [facility] Comment on above: Performed By: #### A 1C #### [facility] [address] [place] [address] Dr. Ramesh Min LIPID PROFILEon 01-12-2022 CHOL-HDL RATIO NORM SEE BELOW Normal [facility] Comment on above: Result Comment: 3.3 - 4.4 LOW RISK 4.4 - 7.1 AVERAGE RISK 7.1 - 11.0 MODERATE RISK >11.0 HIGH RISK Performed By: #### B RESIDENTIAL [employer] SALES CONSULTANT, CMP, LIPID, CRP #### [facility] [address] [address] [address] Ramesh Min Cholesterol [Mass/Vol] 125 mg/dL Normal <=200 [facility] Comment on above: Performed By: #### B RESIDENTIAL SOLAR SALES CONSULTANT, CMP, LIPID, CRP #### [facility] [address] [address] [address] Ramesh Min Cholesterol in HDL [Mass/Vol] 39 mg/dL Normal [facility] Comment on above: Performed By: #### B RESIDENTIAL SOLAR SALES CONSULTANT, CMP, LIPID, CRP #### [facility] [address] [address] [address] Ramesh Min Cholesterol in LDL [Mass/Vol] 69.2 mg/dL Normal [facility] Comment on above: Performed By: #### B RESIDENTIAL SOLAR SALES CONSULTANT, CMP, LIPID, CRP #### [facility] [address] [address] [address] Ramesh Min Cholesterol.total/Cho lesterol in HDL [Mass ratio] 3.2 {ratio} Normal [facility] Comment on above: Performed By: #### B RESIDENTIAL SOLAR SALES CONSULTANT, CMP, LIPID, CRP #### [facility] [address] [address] [address] Ramesh Min HDL NORMAL > or = 60 mg/dl - LO W CARDIOVASCULAR RISK <40 mg/dl - HIGH CARDIOVASCULAR RISK Normal [facility] Comment on above: Performed By: #### B RESIDENTIAL SOLAR SALES CONSULTANT, CMP, LIPID, CRP #### [facility] [address] [address] [address] Ramesh Min LDL CALC NORMAL SEE BELOW Normal [facility] Comment on above: Result Comment: <100 mg/dl OPTIMAL 100 - 129 mg/dl NEAR OR ABOVE OPTIMAL 130 - 159 mg/dl BORDERLINE HIGH 160 - 189 mg/dl HIGH >190 mg/dl VERY HIGH Performed By: #### B RESIDENTIAL SOL[employer] SALES CONSULTANT, CMP, LIPID, CRP #### [facility] [address] [address] [address] Ramesh Min Triglyceride [Mass/Vol] 84 mg/dL Normal <=150 [facility] Comment on above: Performed By: #### B RESIDENTIAL SOLAR SALES CONSULTANT, CMP, LIPID, CRP #### [facility] [address] [address] [address] Ramesh Min VLDL CALC 16.8 mg/dL Normal [facility] Comment on above: Performed By: #### B RESIDENTIAL [employer] SALES CONSULTANT, CMP, LIPID, CRP #### [facility] [address] [address] [address] Ramesh Min PROF 14(COMP METB)on 022 Albumin [Mass/Vol] 3.7 g/dL Normal 3.5-5.0 [facility] Comment on above: Performed By: #### B RESIDENTIAL [employer] SALES CONSULTANT, CMP, LIPID, CRP #### [facility] [address] [address] [address] Ramesh Min Albumin/Globulin [Mass ratio] 0.9 {ratio} Normal [facility] Comment on above: Performed By: #### B RESIDENTIAL SOL[employer] SALES CONSULTANT, CMP, LIPID, CRP #### [facility] [address] [address] [address] Ramesh Min ALP [Catalytic activity/Vol] 75 U/L Normal 38-126 [facility] Comment on above: Performed By: #### B RESIDENTIAL [employer] SALES CONSULTANT, CMP, LIPID, CRP #### [facility] [address] [address] [address] Ramesh Min ALT [Catalytic activity/Vol] 33 U/L Normal 21-72 [facility] Comment on above: Performed By: #### B RESIDENTIAL SOLAR SALES CONSULTANT, CMP, LIPID, CRP #### [facility] [address] [place] [address] Dr. Ramesh Min Anion gap [Moles/Vol] 10.8 mmol/L Normal [facility] Comment on above: Performed By: #### B RESIDENTIAL SOLAR SALES CONSULTANT, CMP, LIPID, CRP #### [facility] [address] [place] [address] Dr. Ramesh Min AST [Catalytic activity/Vol] 15 U/L Critically low 17-59 [facility] Comment on above: Performed By: #### B RESIDENTIAL SOLAR SALES CONSULTANT, CMP, LIPID, CRP #### [facility] [address] [place] [address] Dr. Ramesh Min Bilirubin [Mass/Vol] 0.3 mg/dL Normal 0.2-1.3 [facility] Comment on above: Performed By: #### B RESIDENTIAL SOLAR SALES CONSULTANT, CMP, LIPID, CRP #### [facility] [address] [place] [address] Dr. Ramesh Min Calcium [Mass/Vol] 9.5 mg/dL Normal 8.4-10.2 [facility] Comment on above: Performed By: #### B RESIDENTIAL SOLAR SALES CONSULTANT, CMP, LIPID, CRP #### [facility] [address] [place] [address] Dr. Ramesh Min Chloride [Moles/Vol] 103 mmol/L Normal 98-107 [facility] Comment on above: Performed By: #### B RESIDENTIAL SOLAR SALES CONSULTANT, CMP, LIPID, CRP #### [facility] [address] [address] [address] Ramesh Min CO2 [Moles/Vol] 28.4 mmol/L Normal 22.0-30.0 [facility] Comment on above: Performed By: #### B RESIDENTIAL SOLAR SALES CONSULTANT, CMP, LIPID, CRP #### [facility] [address] [place] [address] Dr. Ramesh Min Creatinine [Mass/Vol] 0.92 mg/dL Normal 0.66-1.25 [facility] Comment on above: Performed By: #### B RESIDENTIAL SOLAR SALES CONSULTANT, CMP, LIPID, CRP #### [facility] [address] [place] [address] Dr. Ramesh Min EGFR-AF NICARAGUAN >60 Normal >=60 [facility] Comment on above: Performed By: #### B RESIDENTIAL SOLAR SALES CONSULTANT, CMP, LIPID, CRP #### [facility] [address] [place] [address] Dr. Ramesh Min EGFR-NON AF NICARAGUAN >60 Normal >=60 [facility] Comment on above: Performed By: #### B RESIDENTIAL SOLAR SALES CONSULTANT, CMP, LIPID, CRP #### [facility] [address] [place] [address] Dr. Ramesh Min Globulin (S) [Mass/Vol] 4.1 g/dL Normal [facility] Comment on above: Performed By: #### B RESIDENTIAL SOLAR SALES CONSULTANT, CMP, LIPID, CRP #### [facility] [address] [place] [address] Dr. Ramesh Min Glucose [Mass/Vol] 104 mg/dL Normal 74-106 [facility] Comment on above: Performed By: #### B RESIDENTIAL SOLAR SALES CONSULTANT, CMP, LIPID, CRP #### [facility] [address] [place] [address] Dr. Ramesh Min Potassium [Moles/Vol] 4.2 mmol/L Normal 3.4-5.0 [facility] Comment on above: Performed By: #### B RESIDENTIAL SOLAR SALES CONSULTANT, CMP, LIPID, CRP #### [facility] [address] [address] [address] Ramesh Min Protein [Mass/Vol] 7.8 g/dL Normal 6.1-8.2 [facility] Comment on above: Performed By: #### B RESIDENTIAL SOLAR SALES CONSULTANT, CMP, LIPID, CRP #### [facility] [address] [address] [address] Ramesh Min Sodium [Moles/Vol] 138 mmol/L Normal 137-145 [facility] Comment on above: Performed By: #### B RESIDENTIAL SOLAR SALES CONSULTANT, CMP, LIPID, CRP #### [facility] [address] [address] [address] Ramesh Min Urea nitrogen [Mass/Vol] 18.0 mg/dL Normal 9.0-20.0 [facility] Comment on above: Performed By: #### B RESIDENTIAL SOLAR SALES CONSULTANT, CMP, LIPID, CRP #### [facility] [address] [place] [address] Dr. Ramesh Min Urea nitrogen/Creatinine [Mass ratio] 19.6 mg/mg Normal [facility] Comment on above: Performed By: #### B RESIDENTIAL SOLAR SALES CONSULTANT, CMP, LIPID, CRP #### [facility] [address] [place] [address] Dr. Ramesh Min SED RATE formerly [facility] 2021 SED RATE 20 mm/hr Normal <=20 [facility] Comment on above: Performed By: #### S EDR #### [facility] [address] [place] [address] Dr. Ramesh Min Vital Signs Date Time Vital Sign Value Performing Clinician Facility 12-18-2024 11:36-0500 Blood Pressure Location Tania Lue [facility] 12-18-2024 11:36-0500 Body temperature 98.6 [degF] Tania Jeane [facility] 12-18-2024 11:36-0500 Diastolic blood pressure 98 mm[Hg] Tania Mariscal [facility] 12-18-2024 11:36-0500 Heart rate 80 /min Tania Lue [facility] 12-18-2024 11:36-0500 Systolic blood pressure 150 mm[Hg] Tania Lue [facility] 11-07-2024 09:29-0500 Body height 182.9 cm Chioma Hardy RESIDENTIAL [employer]AR SALES CONSULTANT Work Phone: [facility] 11-07-2024 09:29-0500 Body mass index (BMI) [Ratio] 42.59 kg/m2 Chioma Hardy RESIDENTIAL SOLAR SALES CONSULTANT Work Phone: [facility] 11-07-2024 09:29-0500 Body temperature 96.21 [degF] Chioma Hardy RESIDENTIAL SOLAR SALES CONSULTANT Work Phone: [facility] 11-07-2024 09:29-0500 Body weight 142.43 kg Chioma Hardy RESIDENTIAL SOLAR SALES CONSULTANT Work Phone: [facility] 11-07-2024 09:29-0500 Diastolic blood pressure 84 mm[Hg] Chioma Hardy RESIDENTIAL SOLAR SALES CONSULTANT Work Phone: [facility] 11-07-2024 09:29-0500 Heart rate 65 /min Chioma Hardy RESIDENTIAL SOLAR SALES CONSULTANT Work Phone: [facility] 11-07-2024 09:29-0500 Respiratory rate 16 /min Chioma Hardy RESIDENTIAL SOLAR SALES CONSULTANT Work Phone: [facility] 11-07-2024 09:29-0500 SaO2% (BldA) [Mass fraction] 93 % Chioma Hardy RESIDENTIAL SOLAR SALES CONSULTANT Work Phone: [facility] 11-07-2024 09:29-0500 Systolic blood pressure 136 mm[Hg] Chioma Hardy RESIDENTIAL SOLAR SALES CONSULTANT Work Phone: [facility] 09-04-2024 15:15-0400 Body mass index (BMI) [Ratio] 41.45 kg/m2 Christopher Jazmine DO Work Phone: [facility] 09-04-2024 15:15-0400 Body weight 138.62 kg Christopher Jazmine DO Work Phone: [facility] 09-04-2024 15:15-0400 Diastolic blood pressure 83 mm[Hg] Christopher Jazmine DO Work Phone: [facility] 09-04-2024 15:15-0400 Heart rate 78 /min Christopher Jazmine DO Work Phone: [facility] 09-04-2024 15:15-0400 SaO2% (BldA) [Mass fraction] 94 % Christopher Jazmine DO Work Phone: [facility] 09-04-2024 15:15-0400 Systolic blood pressure 144 mm[Hg] Christopher Jazmine DO Work Phone: [facility] 08-28-2024 10:40-0400 Diastolic blood pressure 72 mm[Hg] Tania Lue [facility] 08-28-2024 10:40-0400 Heart rate 83 /min Tania Lue [facility] 08-28-2024 10:40-0400 Respiratory rate 16 /min Tania Lue [facility] 08-28-2024 10:40-0400 Systolic blood pressure 138 mm[Hg] Tania Lue [facility] 07-23-2024 10:31-0400 Body height 182.9 cm Chioma Hardy RESIDENTIAL SOLAR SALES CONSULTANT Work Phone: [facility] 07-23-2024 10:31-0400 Body mass index (BMI) [Ratio] 42.18 kg/m2 Chioma Hardy RESIDENTIAL SOLAR SALES CONSULTANT Work Phone: [facility] 07-23-2024 10:31-0400 Body temperature 97.81 [degF] Chioma Hardy RESIDENTIAL SOLAR SALES CONSULTANT Work Phone: [facility] 07-23-2024 10:31-0400 Body weight 141.07 kg Chioma Hardy RESIDENTIAL SOLAR SALES CONSULTANT Work Phone: [facility] 07-23-2024 10:31-0400 Diastolic blood pressure 80 mm[Hg] Chioma Hardy RESIDENTIAL SOLAR SALES CONSULTANT Work Phone: [facility] 07-23-2024 10:31-0400 Heart rate 85 /min Chioma Hardy [employer]IDENTIAL [employer] Work Phone: [facility] Comment on above: 96% O2 07-23-2024 10:31-0400 Systolic blood pressure 118 mm[Hg] Chioma Hardy [employer]IDENTIAL [employer] Work Phone: [facility] 04-16-2024 15:18-0400 Blood Pressure Location Funmi NILL [facility] 04-16-2024 15:18-0400 Diastolic blood pressure 92 mm[Hg] Funmi NILL [facility] 04-16-2024 15:18-0400 Heart rate 76 /min Funmi NILL [facility] [place] 04-16-2024 15:18-0400 Respiratory rate 16 /min Funmi NILL [facility] [place] 04-16-2024 15:18-0400 Systolic blood pressure 140 mm[Hg] Funmi NILL [facility] Encounters Encounter Date Encounter Type Care Provider Facility Start: 03-19-2025 ambulatory CHIOMA HARDY Fa cility:[facility] Start: 03-12-2025 ambulatory CHIOMA HARDY Fa cility:[facility] Borreg[facility] Start: 02-10-2025 End: 02-10-2025 ambulatory PAWEL SORIA Not Available Start: 12-18-2024 End: 12-18-2024 ambulatory CHIOMA HARDY Facility:[facility] Start: 12-18-2024 End: 12-18-2024 Patient encounter procedure [facility] Start: 11-07-2024 End: 11-07-2024 Bamboo flowsheet Chioma Hardy [employer]IDENTIAL [employer] SAL[employer]ULTANT Work Phone: [facility] Start: 11-07-2024 End: 11-07-2024 Bamboo flowsheet Chioma Hardy [employer]IDENTIAL [employer] SAL[employer] CONSULTANT Work Phone: [facility] Start: 11-07-2024 End: 11-07-2024 Refill Chioma Hardy [employer]IDENTIAL [employer] SAL[employer] CONSULTANT Work Phone: [facility] Comment on above: Type 2 diabetes radha itus without complication, without long- term current use of insulin (CMS/HCC) Start: 11-07-2024 End: 11-07-2024 Office outpatient visit 15 minutes Chioma Doshitrick [employer]IDENTIAL [employer] SAL[employer] CON[employer]ULTANT Work Phone: [facility] Comment on above: Type 2 diabetes radha itus without complication, without long- term current use of insulin (CMS/HCC) (Primary Dx); Mixed hyperlipidemia (CMS/HCC); Primary hypertension (CMS/HCC); BMI 40.0-44.9, adult (CMS/HCC); Acute bronchitis with wheezing; Hyperlipidemia, unspecified (CMS/HCC); Essential (primary) hypertension (CMS/HCC); Major depressive disorder, recurrent, mild (HCC) (CMS/HCC); Chronic GERD; Persistent depressive disorder (CMS/HCC); Suspected chronic obstructive pulmonary disease based on initial evaluation (CMS/HCC) Start: 11-07-2024 End: 11-07-2024 ambulatory CHIOMA HARDY Not Available Start: 10-31-2024 End: 10-31-2024 Refill Krystal Dickson [facility] Comment on above: Essential (primary) hypertension (CMS/HCC) Start: 09-10-2024 End: 09-15-2024 Clinisync Result Encounter Generic External Data Provider [facility] Unsolicited Start: 09-10-2024 End: 09-15-2024 Clinisync Result Encounter Generic External Data Provider [facility] Unsolicited Start: 09-04-2024 End: 09-04-2024 Office outpatient visit 25 minutes Christopher Jazmine DO Work Phone: [facility] Comment on above: Cognitive impairment (Primary Dx) Start: 09-04-2024 End: 09-04-2024 ambulatory TANIA LUCERO Not Available Start: 09-04-2024 End: 09-04-2024 Bamboo flowsheet Christopher Jazmine DO Work Phone: [facility] Start: 09-04-2024 End: 09-04-2024 Bamboo flowsheet Christopher Jazmine DO Work Phone: [facility] Start: 09-03-2024 End: 09-04-2024 Clinisync Result Encounter Generic External Data Provider [facility] External Department Unsolicited Start: 09-03-2024 End: 09-04-2024 Clinisync Result Encounter Generic External Data Provider [facility] External [facility] Unsolicited Start: 08-28-2024 End: 08-28-2024 ambulatory CHIOMA OLSONK Facility:[facility]ylie e Start: 08-28-2024 End: 08-28-2024 Patient encounter procedure Tania Mariscal [facility] [place] Start: 08-27-2024 End: 08-27-2024 ambulatory PA-C ERWIN TIPTON Facility:[facility] Start: 08-27-2024 End: 08-27-2024 Patient encounter procedure ERWIN TIPTON [facility] Start: 08-21-2024 End: 08-22-2024 Refill Chioma Hardy [employer]IDENTIAL [employer] SAL[employer] CONSULTANT Work Phone: [facility] Comment on above: Type 2 diabetes radha itus without complication, without long- term current use of insulin (CMS/HCC) Start: 08-15-2024 End: 08-15-2024 Patient encounter procedure Deshawn Hernandes PhD Work Phone: [facility] Comment on above: Memory loss (Primary Dx); ZENON on CPAP; Depression, unspecified depression type (CMS/HCC); History of alcohol abuse Start: 08-15-2024 End: 08-15-2024 ambulatory PAWEL SORIA Not Available Start: 07-30-2024 End: 07-30-2024 Bamboo flowsheet Deshawn Hernandes PhD Work Phone: [facility] Start: 07-30-2024 End: 07-30-2024 Bamboo flowsheet Deshawn Hernandes PhD Work Phone: [facility] Start: 07-30-2024 End: 07-30-2024 Patient encounter procedure Deshawn Hernandes PhD Work Phone: [facility] Comment on above: Mild cognitive impai rment (Primary Dx); Memory loss; ZENON on CPAP; Depression, unspecified depression type (CMS/HCC); History of alcohol abuse Start: 07-30-2024 End: 07-30-2024 ambulatory DESHAWN HERNANDES Not Available Start: 07-24-2024 ambulatory CHARISMA TIPTON Fac ility:[facility] Start: 07-23-2024 End: 07-23-2024 Bamboo flowsheet Chioma Hardy [employer]IDENTIAL [employer] SAL[employer] CONSULTANT Work Phone: [facility] Start: 07-23-2024 End: 07-23-2024 Bamboo flowsheet Chioma Hardy [employer]IDENTIAL [employer] SAL[employer] CONSULTANT Work Phone: [facility] Start: 07-23-2024 End: 07-23-2024 Office outpatient visit 25 minutes Chioma Hardy RESIDENTIAL [employer] SAL[employer] CONSULTANT Work Phone: [facility] Comment on above: Type 2 diabetes radha itus without complication, without long- term current use of insulin ([facility]) (Primary Dx); Benign essential hypertension ([facility]); Chronic GERD; Suspected chronic obstructive pulmonary disease based on initial evaluation ([facility]); Mild cognitive impairment; Acute bronchitis with wheezing; Mixed hyperlipidemia ([facility]); Cerumen debris on tympanic membrane of both ears; Solitary pulmonary nodule; Acquired buried penis Start: 07-23-2024 End: 07-23-2024 ambulatory CHIOMA HARDY Not Available Start: 07-08-2024 End: 07-08-2024 ambulatory TANIA LUCERO Not Available Start: 05-29-2024 End: 05-29-2024 ambulatory Funmi RESENDIZ Facility:CD:[id number] Start: 05-23-2024 End: 05-23-2024 ambulatory SHAIKH TIFFANIE Not Available Start: 04-16-2024 End: 04-16-2024 ambulatory Funmi RESENDIZ Facility:[facility] Start: 04-16-2024 End: 04-16-2024 Patient encounter procedure Funmi RESENDIZ [facility] [place] Start: 03-22-2024 End: 03-22-20[facility] Start: 03-14-2024 End: 03-14-2024 ambulatory MARTIR Lex DURHAM Not Available Start: 02-21-2024 End: 02-21-2024 ambulatory SHAIKH TIFFANIE Not Available Start: 08-31-2023 End: 08-31-2023 ambulatory [facility] Start: 07-03-2022 ambulatory MARIANELA MCCULLOUGH Facility:H 1 Start: 01-26-2022 ambulatory MARIANELA MCCULLOUGH Facility:H 1 Start: 01-25-2022 End: 01-26-2022 ambulatory MARIANELA MCCULLOUGH Facility:H1 Start: 01-12-2022 End: 01-13-2022 ambulatory MARIANELA [facility] Facility:H1 Procedures Date Procedure Procedure Detail Performing Clinician Start: 09-10-2024 ALL LUTEINIZING HORMONE Generic External Data Provider Start: 09-10-2024 ALL TESTOSTERONE Generi c External Data Provider Start: 09-10-2024 TB ESTROGEN Generic Ex ternal Data Provider Start: 09-10-2024 TB PROLACTIN Generic E xternal Data Provider Start: 09-03-2024 ALL TESTOSTERONE Generi c External Data Provider Start: 05-29-2024 Colonoscopy Chioma frias NP Work Phone: Start: 05-29-2024 Colonoscopy ERWIN TODD Start: 04-08-2014 Colonoscopy Funmi CARRION Cardiac catheterization Isma aeheather NILL Repair of umbilical hernia Adonay curtis NILL Tonsillectomy and adenoidectomy Funmi NILL Plan of Treatment Date Care Activity Detail Author Start: 05-29-2034 Screening for malign ant neoplasm of colon [facility] Start: 05-27-2026 Glaucoma screening Diabetes: R etinopathy Screening [facility] Start: 09-03-2025 End: 09-03-2025 Patient encounter procedure 09/03/2025 9:30 AM EDT Office Visit [facility] [address] [place] [phone] Tania Lucero, [address] [place] [address] [id number] [facility] Start: 05-23-2025 Medicare Annual Wellness (AWV) Medicare Annual Wellness (AWV) [facility] Start: 02-10-2025 End: 02-10-2025 Patient encounter procedure 02/10/2025 9:30 AM EDT Office Visit [facility] [address] [place] [address] Chioma Hardy NP [address] [place] [address] [facility] Start: 01-31-2025 Urine screening for protein Diabetes: Urine Protein Screening [facility] Start: 01-02-2025 Influenza vaccination Influenza Vacc ine (#1) [facility] Comment on above: Postponed from 07/28 (Patient Refused) Start: 11-07-2024 End: 11-07-2024 Patient encounter procedure [facility] Comment on above: Arrived Start: 10-23-2024 End: 10-23-2024 Patient encounter procedure 10/23/2024 9:30 AM EST Office Visit [facility] [address] [place] [phone] Chioma Hardy NP [address] [place] [address] [facility] Start: 09-04-2024 End: 09-04-2024 Patient encounter procedure [facility] [address] Comment on above: Arrived Start: 08-15-2024 End: 08-15-2024 Patient encounter procedure 08/15/2024 9:00 AM EDT Office Visit [facility] [address] [phone] [facility] Start: 08-03-2024 Hemoglobin A1c measurement Diabetes: Hemoglobin A1C [facility] Start: 07-30-2024 End: 07-30-2024 Patient encounter procedure [facility] Comment on above: Mild cognitive impai rment Start: 07-28-2024 Influenza vaccination Influenza Vacc ine (#1) [facility] Start: 07-23-2024 End: 07-23-2024 Patient encounter procedure 07/23/2024 10:30 AM EDT Office Visit [facility] [address] [place] [phone] Chioma Hardy NP [address] [place] [phone] Arrived [facility] Comment on above: Arrived Start: 1961 Pneumococcal Vaccine : 65+ Years (1 of 2 - PCV) Pneumococcal Vaccine: 65+ Years (1 of 2 - PCV) [facility] Start: 1955 Screening for malign ant neoplasm of colon [facility] Immunizations Immunization Date Immunization Notes Care Provider Fa cili 09-28-2023 influenza virus vaccine, unspecified formulation Funmi RESENDIZ [facility] 09-28-2023 Influenza, High-dose Seasonal, Quadrivalent, Preservative Free Chioma Hardy [employer]IDENTIAL [employer] SAL[employer]SULTANT Work Phone: [facility] 10-23-2021 SARS-CoV-2 (COVID-19 ) mRNA-1273 vaccine Funmi NILL [facility] 09-12-2021 influenza virus vaccine, unspecified formulation Tania Mariscal [facility] 09-12-2021 influenza, injectabl e, quadrivalent, preservative free Chioma Hardy RESIDENTIAL [employer] SAL[employer] CONSULTANT Work Phone: [facility] 03-06-2021 SARS-CoV-2 (COVID-19 ) mRNA-1273 vaccine Funmi NILL [facility] 02-06-2021 SARS-CoV-2 (COVID-19 ) mRNA-1273 vaccine Funmi NILL [facility] 08-27-2020 influenza virus vaccine, unspecified formulation Chioma Hardy RESIDENTIAL [employer] SAL[employer] CONSULTANT Work Phone: [facility] 08-26-2020 influenza virus vaccine, unspecified formulation Tania Lue [facility] 08-26-2020 influenza, injectabl e, quadrivalent, preservative free Chioma Hardy RESIDENTIAL [employer] SALES CONSULTANT Work Phone: [facility] 11-18-2019 influenza virus vaccine, unspecified formulation Tania Lue [facility] 11-18-2019 influenza, injectabl e, quadrivalent, contains preservative Chioma Hardy RESIDENTIAL [employer] SALES CONSULTANT Work Phone: [facility] 04-27-2019 zoster vaccine recombinant Chioma Hardy RESIDENTIAL [employer] SAL[employer] CONSULTANT Work Phone: [facility] 11-27-2018 zoster vaccine recombinant Chioma Hardy RESIDENTIAL [employer] SALES CONSULTANT Work Phone: [facility] 09-11-2018 zoster vaccine recombinant Chioma Hardy RESIDENTIAL [employer] SAL[employer] CONSULTANT Work Phone: [facility] 08-14-2018 influenza virus vaccine, unspecified formulation Tania Lue [facility] 08-14-2018 influenza, seasonal, injectable Chioma Hardy RESIDENTIAL [employer] SAL[employer] CONSULTANT Work Phone: [facility] 03-10-2018 zoster vaccine recombinant Chioma Hardy RESIDENTIAL [employer] SALES CONSULTANT Work Phone: [facility] 09-15-2017 influenza virus vaccine, unspecified formulation Tania Lue [facility] 09-15-2017 influenza, seasonal, injectable Chioma Hardy RESIDENTIAL [employer] SAL[employer] CONSULTANT Work Phone: [facility] 10-16-2015 influenza virus vaccine, unspecified formulation Tania Lue [facility] 10-16-2015 influenza, seasonal, injectable Chioma Hardy RESIDENTIAL [employer] SAL[employer] CONSULTANT Work Phone: [facility] 08-05-2013 influenza virus vaccine, unspecified formulation Tania Lue [facility] 08-05-2013 influenza, seasonal, injectable, preservative free Chioma Hardy RESIDENTIAL [employer] SALES CONSULTANT Work Phone: [facility] 08-09-2012 influenza virus vaccine, unspecified formulation Tania Lue [facility] 08-09-2012 influenza, seasonal, injectable, preservative free Chioma Hardy RESIDENTIAL [employer]AR SALES CONSULTANT Work Phone: [facility] 08-12-2011 influenza virus vaccine, unspecified formulation Tania Lue [facility] 08-12-2011 influenza, seasonal, injectable, preservative free Chioma Hardy RESIDENTIAL [employer] SALES CONSULTANT Work Phone: [facility] 07-28-2011 influenza virus vaccine, unspecified formulation Chioma Hardy RESIDENTIAL [employer] SALES CONSULTANT Work Phone: [facility] Payers Date Payer Category Payer Medicaid [employer] MEDICARE A DVANTAGE [id number] 2022 Medicare AETNA MEDICARE A DVANTAGE AETNA MEDICARE REPLACEMENT [id number] 2022-Present [address] [place] [address] [id number] 2022 Medicare [id number] 1959 Private Health Insurance [id number] 1959 Private Health Insurance [id number] 1959 Self-pay 1957 Unknown [id number] 2.16.840.1.148951.3.579.2. 593 1957 Unknown [id number] 2.16.840.1.861594.3.579.2. 593 1957 Unknown [id number] 2.16.840.1.331879.3.579.2. 593 1957 Unknown [id number] 2.16.840.1.607062.3.579.2. 593 1957 Unknown [id number] 2.16.840.1.993506.3.579.2. 1259 1957 Unknown [id number] 2.16.840.1.916233.3.579.2. 1259 1957 Unknown [id number] 2.16.840.1.343343.3.579.2. 1259 1957 Unknown [id number] 2.16.840.1.078409.3.579.2. 1259 1957 Unknown [id number] 2.16.840.1.613731.3.579.2. 1259 1957 Unknown [id number] 2.16.840.1.874868.3.579.2. 1259 1957 Unknown [id number] 2.16.840.1.680753.3.579.2. 1259 1957 Unknown [id number] 2.16.840.1.315381.3.579.2. 1259 1957 Unknown [id number] 2.16.840.1.048031.3.579.2. 1259 1957 Unknown [id number] 2.16.840.1.562616.3.579.2. 1259 1957 Unknown [id number] 2.16.840.1.085006.3.579.2. 727 1957 Unknown [id number] 2.16.840.1.600549.3.579.2. 727 1957 Unknown [id number] 2.16.840.1.483038.3.579.2. 727 1957 Unknown [id number] 2.16.840.1.307371.3.579.2. 727 1957 Unknown [id number] 2.16.840.1.639105.3.579.2. 727 1957 Unknown [id number] 2.16.840.1.819323.3.579.2. 727 1957 Unknown [id number] 2.16.840.1.393781.3.579.2. 727 Social History Date Type Detail Facility Start: 04-16-2024 End: 12-18-2024 Tobacco smoking status Ex-smoker (finding) [facility] Tobacco smoking status Smokeless tobacco user within last 30 days [facility] Start: 07-16-2024 End: 07-23-2024 Sex Assigned At Male [facility] History of tobacco use Current smoker [facility] History of tobacco use Cigarette Smoker [facility] Start: 07-08-2024 End: 07-16-2024 Cigarettes smoked current (pack per day) - Reported 0.5 [facility] History of tobacco use Passive smoker [facility] Start: 07-08-2024 Tobacco use and exposure User of smokeless tobacco [facility] History of tobacco use Chews Tobacco [facility] Start: 07-08-2024 End: 07-23-2024 Alcoholic beverage intake Lifetime non-drinker (finding) [facility] Do you belong to any clubs or organizations such as oriental orthodox groups, unions, fraternal or athletic groups, or [...] Only a little [facility] (I/We) worried whestanton er (my/our) food would run out before (I/we) got money to buy more. Never true [facility] Start: 1955 Sex assigned at Not on file [facility] Goals Date Patient Goal Desired Activity /State Personal health goal Functional Status Date Assessment Result Facility 12-18-2024 Functional Status N/A [facility] 08-28-2024 Functional Status N/A [facility] 04-16-2024 Functional Status N/A [facility] [place] Clinical Notes 08-31-2023 to 12-18-2024 Chioma Hardy, DEX - 11/07/2024 9:48 AM Evy Hardy NP - 11/07/2024 9:47 AM Evy Hardy NP - 11/07/2024 9:47 AM Evy Hardy NP - 11/07/2024 9:47 AM EST Note Date & Type Note Facility 12-18-2024 Hospital Discharge instructions Patient Education 12/18/2024 12:03:33 Hypogonadism, Male Hypogonadism, Male Male hypogonadism is a condition of having a level of testosterone that is lower than normal. Testosterone is a chemical, or hormone, that is made mainly in the testicles. In boys, testosterone is responsible for the development of male characteristics during puberty. These include: Making the penis bigger. Growing and building the muscles. Growing facial hair. Deepening the voice. In adult men, testosterone is responsible for maintaining: An interest in sex and the ability to have sex. Muscle mass. Sperm production. Red blood cell production. Bone strength. Testosterone also gives men energy and a sense of well-being. Testosterone normally decreases as men age and the testicles make less testosterone. Testosterone levels can vary from man to man. Not all men will have signs and symptoms of low testosterone. Weight, alcohol use, medicines, and certain medical conditions can affect a man's testosterone level. What are the causes? This condition is caused by: A natural decrease in testosterone that occurs as a man grows older. This is the main cause of this condition. Use of medicines, such as antidepressants, steroids, and opioids. Diseases and conditions that affect the testicles or the making of testosterone. These include: ?Injury or damage to the testicles from trauma, cancer, cancer treatment, or infection. ?Diabetes. ?Sleep apnea. ?Genetic conditions that men are born with. ?Disease of the pituitary gland. This gland is in the brain. It produces hormones. ?Obesity. ?Metabolic syndrome. This is a group of diseases that affect blood pressure, blood sugar, cholesterol, and belly fat. ?HIV or AIDS. ?Alcohol abuse. ?Kidney failure. ?Other long-term or chronic diseases. What are the signs or symptoms? Common symptoms of this condition include: Loss of interest in sex (low sex drive). Inability to have or maintain an erection (erectile dysfunction). Feeling tired (fatigue). Mood changes, like irritability or depression. Loss of muscle and body hair. Infertility. Large breasts. Weight gain (obesity). How is this diagnosed? Your health care provider can diagnose hypogonadism based on: Your signs and symptoms. A physical exam to check your testosterone levels. This includes blood tests. Testosterone levels can change throughout the day. Levels are highest in the morning. You may need to have repeat blood tests before getting a diagnosis of hypogonadism. Depending on your medical history and test results, your health care provider may also do other tests to find the cause of low testosterone. How is this treated? This condition is treated with testosterone replacement therapy. Testosterone can be given by: Injection or through pellets inserted under the skin. Gels or patches placed on the skin or in the mouth. Testosterone therapy is not for everyone. It has risks and side effects. Your health care provider will consider your medical history, your risk for prostate cancer, your age, and your symptoms before putting you on testosterone replacement therapy. Follow these instructions at home: Take paev-ejv-znyhbyh and prescription medicines only as told by your health care provider. Eat foods that are high in fiber, such as beans, whole grains, and fresh fruits and vegetables. Limit foods that are high in fat and processed sugars, such as fried or sweet foods. If you drink alcohol: ?Limit how much you have to 0 2 drinks a day. ?Know how much alcohol is in your drink. In the [place] one drink equals one 12 oz bottle of beer (355 mL), one 5 oz glass of wine (148 mL), or one 1 oz glass of hard liquor (44 mL). Return to your normal activities as told by your health care provider. Ask your health care provider what activities are safe for you. Keep all follow-up visits. This is important. Contact a health care provider if: You have any of the signs or symptoms of low testosterone. You have any side effects from testosterone therapy. Summary Male hypogonadism is a condition of having a level of testosterone that is lower than normal. The natural drop in testosterone production that occurs with age is the most common cause of this condition. Low testosterone can also be caused by many diseases and conditions that affect the testicles and the making of testosterone. This condition is treated with testosterone replacement therapy. There are risks and side effects of testosterone therapy. Your health care provider will consider your age, medical history, symptoms, and risks for prostate cancer before putting you on testosterone therapy. This information is not intended to replace advice given to you by your health care provider. Make sure you discuss any questions you have with your health care provider. Document Revised: 07/15/2021 Document Reviewed: 07/15/2021 [employer] Patient Education 2023 [email or web address] Follow Up Care 08/28/2024 11:12:51 With:Davey PARISH, ODALYS Arrieta, URO Address: When:Within 3 Month(s) Comments:[employer] [facility] 12-18-2024 Note Patient Education Urology Hypogonadism, Male Male hypogonadism is a condition of having a level of testosterone that is lower than normal. Testosterone is a chemical, or hormone, that is made mainly in the testicles. In boys, testosterone is responsible for the development of male characteristics during puberty. These include: ??? Making the penis bigger. ??? Growing and building the muscles. ??? Growing facial hair. ??? Deepening the voice. In adult men, testosterone is responsible for maintaining: ??? An interest in sex and the ability to have sex. ??? Muscle mass. ??? Sperm production. ??? Red blood cell production. ??? Bone strength. Testosterone also gives men energy and a sense of well-being. Testosterone normally decreases as men age and the testicles make less testosterone. Testosterone levels can vary from man to man. Not all men will have signs and symptoms of low testosterone. Weight, alcohol use, medicines, and certain medical conditions can affect a man's testosterone level. What are the causes? This condition is caused by: ??? A natural decrease in testosterone that occurs as a man grows older. This is the main cause of this condition. ??? Use of medicines, such as antidepressants, steroids, and opioids. ??? Diseases and conditions that affect the testicles or the making of testosterone. These include: ? Injury or damage to the testicles from trauma, cancer, cancer treatment, or infection. ? Diabetes. ? Sleep apnea. ? Genetic conditions that men are born with. ? Disease of the pituitary gland. This gland is in the brain. It produces hormones. ? Obesity. ? Metabolic syndrome. This is a group of diseases that affect blood pressure, blood sugar, cholesterol, and belly fat. ? HIV or AIDS. ? Alcohol abuse. ? Kidney failure. ? Other long-term or chronic diseases. What are the signs or symptoms? Common symptoms of this condition include: ??? Loss of interest in sex (low sex drive). ??? Inability to have or maintain an erection (erectile dysfunction). ??? Feeling tired (fatigue). ??? Mood changes, like irritability or depression. ??? Loss of muscle and body hair. ??? Infertility. ??? Large breasts. ??? Weight gain (obesity). How is this diagnosed? Your health care provider can diagnose hypogonadism based on: ??? Your signs and symptoms. ??? A physical exam to check your testosterone levels. This includes blood tests. Testosterone levels can change throughout the day. Levels are highest in the morning. You may need to have repeat blood tests before getting a diagnosis of hypogonadism. Depending on your medical history and test results, your health care provider may also do other tests to find the cause of low testosterone. How is this treated? This condition is treated with testosterone replacement therapy. Testosterone can be given by: ??? Injection or through pellets inserted under the skin. ??? Gels or patches placed on the skin or in the mouth. Testosterone therapy is not for everyone. It has risks and side effects. Your health care provider will consider your medical history, your risk for prostate cancer, your age, and your symptoms before putting you on testosterone replacement therapy. Follow these instructions at home: ??? Take wnsb-ide-jizqdzh and prescription medicines only as told by your health care provider. ??? Eat foods that are high in fiber, such as beans, whole grains, and fresh fruits and vegetables. Limit foods that are high in fat and processed sugars, such as fried or sweet foods. ??? If you drink alcohol: ? Limit how much you have to 0?2 drinks a day. ? Know how much alcohol is in your drink. In the [place] one drink equals one 12 oz bottle of beer (355 mL), one 5 oz glass of wine (148 mL), or one 1? oz glass of hard liquor (44 mL). ??? Return to your normal activities as told by your health care provider. Ask your health care provider what activities are safe for you. ??? Keep all follow-up visits. This is important. Contact a health care provider if: ??? You have any of the signs or symptoms of low testosterone. ??? You have any side effects from testosterone therapy. Summary ??? Male hypogonadism is a condition of having a level of testosterone that is lower than normal. ??? The natural drop in testosterone production that occurs with age is the most common cause of this condition. ??? Low testosterone can also be caused by many diseases and conditions that affect the testicles and the making of testosterone. ??? This condition is treated with testosterone replacement therapy. ??? There are risks and side effects of testosterone therapy. Your health care provider will consider your age, medical history, symptoms, and risks for prostate cancer before putting you on testosterone therapy. This information is not intended to replace advice given to you by your health care provider. Make sure you discuss any (more content not included)... [facility] 11-07-2024 History of Present illness Narrative Associated Problem(s): BMI 40.0-44.9, adult ([facility]) Discussed with patient their BMI (actual, verses recommended). We have also discussed lifestyle modifications: attempts to perform physical activity as chronic conditions allow, also to monitor dietary intake: increasing protein/fruits/veggies and lowering carb intake (unless contraindicated). Limit sodas, juices, and sugary drinks. Also discussed oral medications that can be utilized for weight loss, as well as surgical options for weight loss. Associated Problem(s): HTN (hypertension) ([facility]) Currently taking amlodipine 10mg Isosorbide Lisinopril-hydrochlorothiazide Metoprolol Does not check BP at home; Denies orthostatic changes, dizziness, cough, shortness of breath, swelling in extremities. Continue current regimen. Given BP log, advised pt to record BP and bring log back with them to next visit. Associated Problem(s): Hyperlipidemia ([facility]) Currently taking Atorvastatin 40mg Denies any myalgias. Continue current regimen. Associated Problem(s): Type 2 diabetes mellitus without complication, without long-term current use of insulin ([facility]) Currently taking Metformin Semaglutide Has been tolerating with no adverse effects. Would like to increase to 1 mg. Will increase dose today. Most recent labs: hemoglobin A1C 6.1% Does not check BG levels at home. No episode of hypoglycemia No medication adverse effects reported by the patient. Patient educated on lifestyle modifications, dietary restrictions, signs and symptoms of hypoglycemia/hyperglycemia and importance of eating regular consistent meals. Stressed upon importance of checking blood glucose at home and bring blood glucose log to appointments. All questions, concerns answered and addressed. Encouraged to call office if persistent hypoglycemia/hyperglycemia on home glucose monitoring noted. Images from the original note were not included. Subjective Patient ID: Funmi Julio is a 68 y.o. male who presents for Follow-up. HPI Specialists: Neurology- Dr. Lucero Pulmonology- Dr. Marcelino Cardiology- Dr. Thibodeaux HTN: Currently taking amlodipine 10mg Isosorbide Lisinopril-hydrochlorothiazide Metoprolol Does not check BP at home; Denies orthostatic changes, dizziness, cough, shortness of breath, swelling in extremities. Continue current regimen. Given BP log, advised pt to record BP and bring log back with them to next visit. HLD: Currently taking Atorvastatin 40mg Denies any myalgias. Continue current regimen. Component Ref Range & Units 9 mo ago (02/01/24) 9 mo ago (02/01/24) 9 mo ago (02/01/24) 9 mo ago (02/01/24) TRIGLYCERIDES <=150 mg/dL 109 140 R 35.8 R 130.20 R CHOLESTEROL <=200 mg/dL 125 3.9 R 0.2 R HDL CHOLESTEROL 40 - 60 mg/dL 40 10.8 R 5.7 R Comment: > or =60 mg/dl - LOW CARDIOVASCULAR RISK <40 mg/dl - HIGH CARDIOVASCULAR RISK LDL CHOLESTEROL CALCULATED mg/dL 63.2 106 R 3.6 R Comment: <100 mg/dl OPTIMAL 100-129 mg/dl NEAR OR ABOVE OPTIMAL 130-159 mg/dl BORDERLINE HIGH 160-189 mg/dl HIGH >190 mg/dl VERY HIGH VLDL CHOLESTEROL mg/dL 21.8 0.4 R 0.6 R CHOL HDL RATIO 3.1 19 R 0.02 R Comment: 3.3 - 4.4 LOW RISK 4.4 - 7.1 AVERAGE RISK 7.1 - 11.0 MODERATE RISK >11.0 HIGH RISK ALANINE AMINOTRANSFERASE 44 R ALKALINE PHOSPHATASE 67 R TOTAL PROTEIN 7.9 R ALBUMIN LEVEL 3.5 R ALBUMIN GLOBULIN RATIO 0.8 Resulting Agency [facility] DMII: Currently taking Metformin Semaglutide Has been tolerating with no adverse effects. Would like to increase to 1 mg. Will increase dose today. Most recent labs: hemoglobin A1C 6.3% Does not check BG levels at home. No episode of hypoglycemia No medication adverse effects reported by the patient. Patient educated on lifestyle modifications, dietary restrictions, signs and symptoms of hypoglycemia/hyperglycemia and importance of eating regular consistent meals. Stressed upon importance of checking blood glucose at home and bring blood glucose log to appointments. All questions, concerns answered and addressed. Encouraged to call office if persistent hypoglycemia/hyperglycemia on home glucose monitoring noted. Education: Check blood sugars daily, notify if <70 or >200. Take medications (pills or insulin) as directed. Monitor for s/s of hypoglycemia (sweaty, dizziness, nausea, vomiting, or shakiness). Watch for increase in thirst, urination, or appetite. Inspect feet frequently monitoring for open wounds , and also recommend yearly eye exam. Pt should attempt to remain as physically active as chronic conditions allow, as well as trying to follow a diet low in carbohydrates, and simple sugars. Review of Systems Constitutional: Negative for activity change, appetite change, chills, diaphoresis, fatigue, fever and unexpected weight change. HENT: Negative for congestion, ear pain, rhinorrhea, sinus pressure, sinus pain, sneezing, sore throat, trouble swallowing and voice change. Eyes: Negative for visual disturbance. Respiratory: Negative for cough, chest tightness, shortness of breath and wheezing. Cardiovascular: Negative for chest pain, palpitations and leg swelling. Gastrointestinal: Negative for abdominal distention, abdominal pain, blood in stool, constipation, diarrhea and vomiting. Genitourinary: Negative for decreased urine volume, dysuria, flank pain, frequency, hematuria and urgency. Musculoskeletal: Negative for arthralgias, gait problem, joint swelling and myalgias. Skin: Negative for rash. Neurological: Negative for dizziness, tremors, syncope, weakness, light-headedness and headaches. Psychiatric/Behavioral: Negative for decreased concentration and suicidal ideas. The patient is not nervous/anxious. Hematological: Does not bruise/bleed easily. Endocrine: Negative for cold intolerance, heat intolerance, polydipsia, polyphagia and polyuria. Objective Physical Exam Vitals reviewed. Constitutional: Appearance: Normal appearance. HENT: Right Ear: Tympanic membrane normal. Left Ear: Tympanic membrane normal. Nose: Nose normal. Mouth/Throat: Mouth: Mucous membranes are moist. Pharynx: Oropharynx is clear. Eyes: Pupils: Pupils are equal, round, and reactive to light. Cardiovascular: Rate and Rhythm: Normal rate and regular rhythm. Pulses: Normal pulses. Heart sounds: Normal heart sounds. Pulmonary: Effort: Pulmonary effort is normal. Breath sounds: Normal breath sounds. Abdominal: General: Abdomen is flat. Bowel sounds are normal. Palpations: Abdomen is soft. Skin: Capillary Refill: Capillary refill takes less than 2 seconds. Neurological: Mental Status: He is alert and oriented to person, place, and time. Assessment/Plan Problem List Items Addressed This Visit Chronic GERD (Chronic) Relevant Medications omeprazole (PriLOSEC) [address] capsule Hyperlipidemia ([facility]) Currently taking Atorvastatin 40mg Denies any myalgias. Continue current regimen. Persistent depressive disorder ([facility]) (Chronic) Relevant Medications PARoxetine (Paxil) 40 MG tablet Type 2 diabetes mellitus without complication, without long-term current use of insulin ([facility]) - Primary (Chronic) Currently taking Metformin Semaglutide Has been tolerating with no adverse effects. Would like to increase to 1 mg. Will increase dose today. Most recent labs: hemoglobin A1C 6.1% Does not check BG levels at home. No episode of hypoglycemia No medication adverse effects reported by the patient. Patient educated on lifestyle modifications, dietary restrictions, signs and symptoms of hypoglycemia/hyperglycemia and importance of eating regular consistent meals. Stressed upon importance of checking blood glucose at home and bring blood glucose log to appointments. All questions, concerns answered and addressed. Encouraged to call office if persistent hypoglycemia/hyperglycemia on home glucose monitoring noted. Relevant Medications semaglutide (Ozempic) 2 MG/1.5ML solution pen-injector metFORMIN (Glucophage) 850 MG tablet HTN (hypertension) ([facility]) Currently taking amlodipine 10mg Isosorbide Lisinopril-hydrochlorothiazide Metoprolol Does not check BP at home; Denies orthostatic changes, dizziness, cough, shortness of breath, swelling in extremities. Continue current regimen. Given BP log, advised pt to record BP and bring log back with them to next visit. Relevant Medications amLODIPine (Norvasc) 10 MG tablet ASPIRIN 81 MG chewable tablet isosorbide mononitrate ER (Imdur) 60 MG 24 hr tablet metoprolol succinate XL (Toprol-XL) 100 MG 24 hr tablet Suspected chronic obstructive pulmonary disease based on initial evaluation ([facility]) Relevant Medications albuterol HFA (Ventolin HFA) 90 mcg/act inhaler fexofenadine (Lamar Allergy) 180 MG tablet BMI 40.0-44.9, adult ([facility]) Discussed with patient their BMI (actual, verses recommended). We have also discussed lifestyle modifications: attempts to perform physical activity as chronic conditions allow, also to monitor dietary intake: increasing protein/fruits/veggies and lowering carb intake (unless contraindicated). Limit sodas, juices, and sugary drinks. Also discussed oral medications that can be utilized for weight loss, as well as surgical options for weight loss. Other Visit Diagnoses Acute bronchitis with wheezing Hyperlipidemia, unspecified ([facility]) Relevant Medications atorvastatin (Lipitor) 40 MG tablet Essential (primary) hypertension ([facility]) Relevant Medications lisinopril-hydroCHLOROthiazide 20-12.5 MG tablet Major depressive disorder, recurrent, mild (HCC) ([facility]) documented in this encounter [facility] 10-31-2024 Telephone encounter Note Patient states he did not know that you lowered his meds to 1 time a day instead of 2 and he's running out of lisinopril now [facility] 10-31-2024 Miscellaneous Notes Patient states he did not know that you lowered his meds to 1 time a day instead of 2 and he's running out of lisinopril now documented in this encounter [facility] 09-04-2024 History of Present illness Narrative Images from the original note were not included. Chief complaint: Cognitive impairment Subjective Funmi Burnett Nori, 68 y.o., male Patient is here for [...] reflexes are 2+ and symmetric throughout. Coordination: Qrklre-yy-gdih testing and rapid alternating movements are normal [...] status. He has seen pulmonology for this. Rony cognitive assessment was 26/30. MRI of the [...] and return instructions documented in this encounter [facility] 08-28-2024 Hospital Discharge instructions Patient Education 08/28/2024 [...] Follow these instructions at home: Medicines Take hwvi-ctg-[id number] and prescription medicines only as told by [...] provider. Document Revised: 02/09/2022 Document Reviewed: 02/09/2022 [employer] Patient Education 2023 [email or web address] Follow Up Care 08/27/2024 13:33:54 With:Davey PARISH, ODALYS Arrieta, URO Address: [address] [place] [phone] When: Unknown Comments:6 mos (possible T level) [facility] 08-28-2024 Note Patient Education Urology Erectile [...] these instructions at home: Medicines ? Take elmn-gvx-yvjitqf and prescription medicines only as told by [...] or tobacco. These (more content not included)... [facility] 08-15-2024 History of Present illness Narrative Images from the original note were not included. Neuropsychology Deshawn Hernandes, PhD NEUROPSYCHOLOGICAL EVALUATION Funmi Julio is a 68 y.o. male referred for neuropsychological evaluation to assist with facilitating and informing medical differential diagnosis and clinical decision-making. The following information was obtained during an interview with the patient, as well as review of available records. PRESENTING PROBLEM: Decline in memory over the past year especially noticeable since retiring. Was noticeable before but much worse now. Experiencing general day-to-day forgetfulness such as forgetting names, requiring to write things down, as well as losing train of thought. Otherwise remains independent in ADLs, housework, finances, medication, and driving. Physically active completing yardwork and maintaining his three-quarter acre garden. Socially experiencing less drive/motivation. Mostly homebody since retiring but does visit neighbors 1X/week. Overall sleeping well and wears CPAP nightly. Records indicate recently detected low oxygen which may be contributing to above presentation. Follows with pulmonology now. Pain complaints include chronic low back pain. Prior neurological history includes large chunk of ice falling from 75 feet onto patient's head resulting in LOC but no residual effects. Recent MoCA . 07/15/24 brain MRI nonacute with chronic microvascular ischemic changes. Family neurological history includes Parkinson's dementia (father). Psychiatric history notable for depression. Met with psychiatry in the past but medications made him too tired and services were discontinued. Strong family history of bipolar disorder. Also has history of heavy alcohol consumption typically averaging 24 beers/week. Consuming much less since being started on Ozempic as this has helped curb his cravings. Reformed smoker. [place] language [place]. Completed an associate's degree in automotive work. 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 Resides with of 42 years. They have one child. MEDICAL HISTORY/MEDICATION: MEDICATIONS: Current Outpatient Medications Medication Instructions albuterol HFA (Ventolin HFA) 90 mcg/act inhaler 2 puffs, Inhalation, Every 4 hours PRN amLODIPine (NORVASC) 10 mg, Oral, Daily aspirin (ASPIRIN) 81 mg, Oral, Daily atorvastatin (LIPITOR) 40 mg, Oral, Nightly fexofenadine (Lamar Allergy) 180 MG tablet 1 tablet, Oral, Daily isosorbide mononitrate ER (IMDUR) 60 mg, Oral, Daily lisinopril-hydroCHLOROthiazide 20-12.5 MG tablet 1 tablet, Oral, Daily metFORMIN (GLUCOPHAGE) 850 mg, Oral, Daily metoprolol succinate XL (TOPROL-XL) 100 mg, Oral, Daily RT omeprazole (PRILOSEC) 20 mg, Oral, Nightly Ozempic, 0.25 or 0.5 MG/DOSE, 2 MG/3ML solution pen-injector INJECT 0.25mg SUBCUTANEOUSLY EVERY WEEK for FOUR weeks; then INJECT 0.5mc SUBCUTANEOUSLY EVERY WEEK PARoxetine (PAXIL) 40 mg, Oral, Daily ASSESSMENT: Presented to appointment on time, alert, and Ox3. Rapport easily established. Good eye contact. Socially appropriate during conversation and testing. Hearing adequate for current purposes. Ambulated independently. Purpose for current evaluation explained and patient agreed to participate. Performance validity testing consistent with good effort. Vision/Visuoconstruction: Binocular near-point visual acuity 20/40. Visual ferrer full to confrontation. Visuoconstruction 42nd %ile. Nonverbal abstract reasoning 79th %ile. Copy of a complex geometric design >16th %ile. Motor/Speed of Processing: Right-handed. Mine Safety Engineer strength 16th %ile with right-hand, 21st %ile with left. Speeded graphomotor transcoding 21st %ile. Attention/Working Memory: Auditory attention/working memory 14th %ile (6 digits forward, 4 digits backward, 4 digits during sequencing). Speeded visual scanning/attention 12th %ile. Speeded visual divided attention 18th %ile. Speech/Language: Expressive speech fluent and absent of paraphasic errors. Comprehension adequate for current purposes. Single-word reading 35th %ile. Generative naming to phonemic cues 14th %ile, 42nd %ile to semantic cues. Confrontation naming 24th %ile. Verbal abstract reasoning 10th %ile. Learning and Memory: Learning of a word list 69th %ile (5-9-9-11-11), delayed recall 50th %ile. Recognition discriminability 50th %ile. Forced-choice /16. Immediate recall for prose passages 18th %ile, delayed 7th %ile. Recognition 10-16th %ile. Immediate recall for a variety of geometric figures 35th %ile, delayed 82nd %ile. Recognition 51-75th %ile. Executive Functioning: Novel problem-solving and cognitive flexibility >16th %ile, 3/6 categories completed in 64 sorts. Responding absent of significant perseveration. Emotional Functioning: Minimal depression and anxiety. Denied any thoughts of self-harm. FINDINGS AND RECOMMENDATIONS: CONCLUSIONS: 1. Estimated average pre-morbid intellectual functioning. 2. Preserved visual acuity without signs of visual field cut or neglect. 3. Preserved bilateral gross motor function. 4. Minimal depression and anxiety. OPINION: Current neuropsychological evaluation demonstrates well-preserved cognition and memory. There is no evidence of a neurodegenerative condition or other organic etiology. Findings are completely normal for his age. Minimal psychiatric contribution. RECOMMENDATIONS: Results and recommendations forwarded to treating physician for review during their next appointment. Patient encouraged to contact this office with any additional questions. No activity restrictions from a cognitive standpoint. Memory strategies: Regularly and frequently review information that must be remembered. Link new information in as many ways as possible to already known information. This strategy creates several avenues for remembering the information later. Utilize external memory sources such as lists, date books, calendars, and pocket-size recorders for information that must be remembered. A smartphone is a useful tool in consolidating all this information into one source. Active listening, such as repeating and summarizing information back to presenter when learning important information for future recall may be beneficial as opposed to simply passive listening. Establish a consistent structured routine. Regular physical activity for stress relief, improved cognitive efficiency, and optimal sleep. Attempt new hobbies and skills, keep learning. Proper nutritional intake, such as Mediterranean-style diet, while paying close attention to food sourcing. No need for neuropsychological re-evaluation at this time. Results may be used as a baseline point of comparison should there be concern for future cognitive decline. Thank you for allowing me to participate in the care of this individual. Please contact me with any questions at [phone]. documented in this encounter [facility] 07-30-2024 History of Present illness Narrative Images from the original note were not included. Deshawn Hernandes, PhD NEUROBEHAVIORAL STATUS EXAMINATION Funmi Julio is a 68 y.o. male referred for neuropsychological evaluation to assist with facilitating and informing medical differential diagnosis and clinical decision-making. The following information was obtained during an interview with the patient, as well as review of available records. PRESENTING PROBLEM AND HISTORY Decline in memory over the past year especially noticeable since retiring. Was noticeable before but much worse now. Experiencing general day-to-day forgetfulness such as forgetting names, requiring to write things down, as well as losing train of thought. Otherwise remains independent in ADLs, housework, finances, medication, and driving. Physically active completing yardwork and maintaining his three-quarter acre garden. Socially experiencing less drive/motivation. Mostly homebody since retiring but does visit neighbors 1X/week. Overall sleeping well and wears CPAP nightly. Records indicate recently detected low oxygen which may be contributing to above presentation. Files with pulmonology now. Pain complaints include chronic low back pain. Prior neurological history includes large chunk of ice falling from 75 feet onto patient's head resulting in LOC but no residual effects. Recent MoCA . 07/15/24 brain MRI nonacute with chronic microvascular ischemic changes. Family neurological history includes Parkinson's dementia (father). Psychiatric history notable for depression. Met with psychiatry in the past but medications made him too tired in services were discontinued. Strong family history of bipolar disorder. Also has history of heavy alcohol consumption typically averaging 24 beers/week. Consuming much less since being started on all as epic as this has helped curb his cravings. Reformed smoker. [place] language [place]. Completed an Associates degree in automotive work. 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 Resides with of 42 years. They have one child. MEDICAL HISTORY/MEDICATION: Past Medical History: Diagnosis Date Chronic low back pain CVD (cardiovascular disease) (CMS/HCC) Dyslipidemia (CMS/HCC) Encounter for long-term (current) use of medications Essential hypertension, benign (CMS/HCC) Gastroesophageal reflux disease Hyperlipidemia (CMS/HCC) Low back pain Major depressive disorder, recurrent episode, mild (HCC) (CMS/HCC) Obesity with body mass index (BMI) of 30.0 to 39.9 MEDICATIONS: Current Outpatient Medications Medication Instructions albuterol HFA (Ventolin HFA) 90 mcg/act inhaler 2 puffs, Inhalation, Every 4 hours PRN amLODIPine (NORVASC) 10 mg, Oral, Daily aspirin (ASPIRIN) 81 mg, Oral, Daily atorvastatin (LIPITOR) 40 mg, Oral, Nightly fexofenadine (Lamar Allergy) 180 MG tablet 1 tablet, Oral, Daily isosorbide mononitrate ER (IMDUR) 60 mg, Oral, Daily lisinopril-hydroCHLOROthiazide 20-12.5 MG tablet 1 tablet, Oral, Daily metFORMIN (GLUCOPHAGE) 850 mg, Oral, Daily metoprolol succinate XL (TOPROL-XL) 100 mg, Oral, Daily RT omeprazole (PRILOSEC) 20 mg, Oral, Nightly Ozempic, 0.25 or 0.5 MG/DOSE, 2 MG/3ML solution pen-injector INJECT 0.25mg SUBCUTANEOUSLY EVERY WEEK for FOUR weeks; then INJECT 0.5mc SUBCUTANEOUSLY EVERY WEEK PARoxetine (PAXIL) 40 mg, Oral, Daily INITIAL IMPRESSION AND PLAN: Memory loss, ZENON, as well as history of depression and alcohol abuse: The patient will be scheduled for neuropsychological assessment, which will include tests for memory, reasoning, language, problem-solving, attention, and mood. Thank you for allowing me to participate in the care of this individual. Please contact me with any questions at [phone]. documented in this encounter [facility] 07-23-2024 History of Present illness Narrative Associated Problem(s): Chronic GERD Taking Omeprazole 20mg Has been taking for 20 years. Feels symptoms are well controlled at this time. Declines EGD at this time- will revisit at next OV. Continue with Prilosec. Associated Problem(s): Mild cognitive impairment Following with Neurology- Sees Dr. Lucero and was referred to additional specialisat @ [facility] Neurology- Appointment on 07/30/2024; MRI completed on 07/15/2024. Associated Problem(s): Suspected chronic obstructive pulmonary disease based on initial evaluation ([facility]) Follows Dr. Marcelino with Pulmonology Feels symptoms are well managed currently. Continue current regimen. Associated Problem(s): Acquired buried penis Reports dysuria Has difficulty with urinary flow Report penis is withdrawn internally. Has hard time initiating and controlling flow Was taking viagra once per month to help, has never seen urology. Associated Problem(s): Benign essential hypertension (CMS/HCC) Follows Cardiology- Dr. Thibodeaux Isosorbide 60mg Lisinopril- hydrochlorothiazide 20-12.5mg Amlodipine 10mg Denies orthostatic changes Admits: Edema to BLE 2-3 times per week Continue current regimen Associated Problem(s): Solitary pulmonary nodule Follows Pulmonology- Dr. Marcelino Associated Problem(s): Hyperlipidemia (CMS/HCC) Atorvastatin 40mg Denies myalgias Continue Lipitor Associated Problem(s): Type 2 diabetes mellitus without complication, without long-term current use of insulin (CMS/HCC) Most recent labs: hemoglobin A1C 6.3% Down from 6.5%. Taking Metfoprmin 850mg Ozempic 0.25mg- just started 2 weeks ago. No episode of hypoglycemia No medication adverse effects reported by the patient. Patient educated on lifestyle modifications, dietary restrictions, signs and symptoms of hypoglycemia/hyperglycemia and importance of eating regular consistent meals. Stressed upon importance of checking blood glucose at home and bring blood glucose log to appointments. All questions, concerns answered and addressed. Encouraged to call office if persistent hypoglycemia/hyperglycemia on home glucose monitoring noted. Images from the original note were not included. Subjective Patient ID: Funmi Julio is a 68 y.o. male who presents for Follow-up. HPI Following with Neurology- Sees Dr. Lucero and was referred to additional specialisat @ [facility]- Appointmnet on 07/30/2024; Follows Pulmonology- Dr. Marcelino Follows Cardiology- Dr. Thibodeaux HTN: Isosorbide 60mg Lisinopril- hydrochlorothiazide 20-12.5mg Amlodipine 10mg Denies orthostatic changes Admits: Edema to BLE 2-3 times per week HLD: Atorvastatin 40mg Denies myalgias Continue Lipitor Most recent Lipid Panel below: Component Ref Range & Units 5 mo ago (02/01/24) 5 mo ago (02/01/24) 5 mo ago (02/01/24) 5 mo ago (02/01/24) TRIGLYCERIDES <=150 mg/dL 109 140 R 35.8 R 130.20 R CHOLESTEROL <=200 mg/dL 125 3.9 R 0.2 R HDL CHOLESTEROL 40 - 60 mg/dL 40 10.8 R 5.7 R Comment: > or =60 mg/dl - LOW CARDIOVASCULAR RISK <40 mg/dl - HIGH CARDIOVASCULAR RISK LDL CHOLESTEROL CALCULATED mg/dL 63.2 106 R 3.6 R Comment: <100 mg/dl OPTIMAL 100-129 mg/dl NEAR OR ABOVE OPTIMAL 130-159 mg/dl BORDERLINE HIGH 160-189 mg/dl HIGH >190 mg/dl VERY HIGH VLDL CHOLESTEROL mg/dL 21.8 0.4 R 0.6 R CHOL HDL RATIO 3.1 19 R 0.02 R Comment: 3.3 - 4.4 LOW RISK 4.4 - 7.1 AVERAGE RISK 7.1 - 11.0 MODERATE RISK >11.0 HIGH RISK ALANINE AMINOTRANSFERASE 44 R ALKALINE PHOSPHATASE 67 R TOTAL PROTEIN 7.9 R ALBUMIN LEVEL 3.5 R ALBUMIN GLOBULIN RATIO 0.8 Resulting Agency [facility] DMII: Most recent labs: hemoglobin A1C 6.3% Down from 6.5%. 0 Result Notes Component Ref Range & Units 8 d ago 5 mo ago GLYCOHEMOGLOBIN A1C 4.5 - 6.2 % 6.3 High 6.5 High CM Comment: ADA RECOMMENDED LIMIT 4.0 - 6.0 ADA THERAPEUTIC TARGET < 7.0 ACTION SUGGESTED > 7.0 ESTIMATED AVERAGE GLUCOSE mg/dL 134 140 Resulting Agency TBH TB Average FSBS range from patient does not check sugars No episode of hypoglycemia No medication adverse effects reported by the patient. Patient educated on lifestyle modifications, dietary restrictions, signs and symptoms of hypoglycemia/hyperglycemia and importance of eating regular consistent meals. Stressed upon importance of checking blood glucose at home and bring blood glucose log to appointments. All questions, concerns answered and addressed. Encouraged to call office if persistent hypoglycemia/hyperglycemia on home glucose monitoring noted. Last DM eye Exam 1 year ago Diabetic foot exam: Left: Reflexes 2+ Vibratory sensation normal Proprioception normal Sharp/dull discrimination normal Filament test present Right: Reflexes 2+ Vibratory sensation normal Proprioception normal Sharp/dull discrimination normal Filament test present Buried Penis: Reports dysuria Has difficulty with urinary flow Report penis is withdrawn internally. Has hard time initiating and controlling flow Was taking viagra once per month to help, has never seen urology. Review of Systems Constitutional: Negative for activity change, appetite change, chills, diaphoresis, fatigue, fever and unexpected weight change. HENT: Negative for congestion, ear pain, rhinorrhea, sinus pressure, sinus pain, sneezing, sore throat, trouble swallowing and voice change. Eyes: Negative for visual disturbance. Respiratory: Negative for cough, chest tightness, shortness of breath and wheezing. Cardiovascular: Positive for leg swelling. Negative for chest pain and palpitations. Intermittent leg swelling, non pitting 2 times per week. Gastrointestinal: Negative for abdominal distention, abdominal pain, blood in stool, constipation, diarrhea and vomiting. Genitourinary: Negative for decreased urine volume, dysuria, flank pain, frequency, hematuria and urgency. Musculoskeletal: Negative for arthralgias, gait problem, joint swelling and myalgias. Skin: Negative for rash. Neurological: Negative for dizziness, tremors, syncope, weakness, light-headedness and headaches. Psychiatric/Behavioral: Negative for decreased concentration and suicidal ideas. The patient is not nervous/anxious. Hematological: Does not bruise/bleed easily. Endocrine: Negative for cold intolerance, heat intolerance, polydipsia, polyphagia and polyuria. Objective Physical Exam Vitals reviewed. Constitutional: Appearance: Normal appearance. HENT: Head: Normocephalic and atraumatic. Right Ear: There is impacted cerumen. Left Ear: There is impacted cerumen. Nose: Nose normal. Mouth/Throat: Mouth: Mucous membranes are moist. Pharynx: Oropharynx is clear. Eyes: Pupils: Pupils are equal, round, and reactive to light. Cardiovascular: Rate and Rhythm: Normal rate and regular rhythm. Pulses: Normal pulses. Heart sounds: Normal heart sounds. Pulmonary: Effort: Pulmonary effort is normal. Breath sounds: Normal breath sounds. Abdominal: General: Abdomen is flat. Bowel sounds are normal. Palpations: Abdomen is soft. Musculoskeletal: General: Normal range of motion. Cervical back: Normal range of motion. Skin: General: Skin is warm and dry. Capillary Refill: Capillary refill takes less than 2 seconds. Neurological: General: No focal deficit present. Mental Status: He is alert and oriented to person, place, and time. Psychiatric: Mood and Affect: Mood normal. Behavior: Behavior normal. Assessment/Plan Problem List Items Addressed This Visit Benign essential hypertension (CMS/HCC) (Chronic) Follows Cardiology- Dr. Thibodeaux Isosorbide 60mg Lisinopril- hydrochlorothiazide 20-12.5mg Amlodipine 10mg Denies orthostatic changes Admits: Edema to BLE 2-3 times per week Continue current regimen Chronic GERD (Chronic) Taking Omeprazole 20mg Has been taking for 20 years. Feels symptoms are well controlled at this time. Declines EGD at this time- will revisit at next OV. Continue with Prilosec. Hyperlipidemia (CMS/HCC) Atorvastatin 40mg Denies myalgias Continue Lipitor Solitary pulmonary nodule Follows Pulmonology- Dr. Marcelino Type 2 diabetes mellitus without complication, without long-term current use of insulin (CMS/HCC) - Primary (Chronic) Most recent labs: hemoglobin A1C 6.3% Down from 6.5%. Taking Metfoprmin 850mg Ozempic 0.25mg- just started 2 weeks ago. No episode of hypoglycemia No medication adverse effects reported by the patient. Patient educated on lifestyle modifications, dietary restrictions, signs and symptoms of hypoglycemia/hyperglycemia and importance of eating regular consistent meals. Stressed upon importance of checking blood glucose at home and bring blood glucose log to appointments. All questions, concerns answered and addressed. Encouraged to call office if persistent hypoglycemia/hyperglycemia on home glucose monitoring noted. Suspected chronic obstructive pulmonary disease based on initial evaluation (CMS/HCC) Follows Dr. Marcelino with Pulmonology Feels symptoms are well managed currently. Continue current regimen. Mild cognitive impairment Following with Neurology- Sees Dr. Lucero and was referred to additional specialisat @ [facility] Neurology- Appointment on 07/30/2024; MRI completed on 07/15/2024. 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 Has hard time initiating and controlling flow Was taking viagra once per month to help, has never seen urology. Other Visit Diagnoses Acute bronchitis with wheezing Relevant Medications albuterol HFA (Ventolin HFA) 90 mcg/act inhaler documented in this encounter [facility] 07-23-2024 Instructions Chioma Hardy NP - 07/23/2024 10:30 AM EDT Refills sent Your labs all look good. Keep up the good work! Referral sent to Dr. Mata-Urology They will call you! Education: Check blood sugars daily, notify if <70 or >200. Take medications (pills or insulin) as directed. Monitor for s/s of hypoglycemia (sweaty, dizziness, nausea, vomiting, or shakiness). Watch for increase in thirst, urination, or appetite. Inspect feet frequently monitoring for open wounds , and also recommend yearly eye exam. Pt should attempt to remain as physically active as chronic conditions allow, as well as trying to follow a diet low in carbohydrates, and simple sugars. documented in this encounter [facility] 04-16-2024 Note Chief Complaint consultation for colonoscopy [...] Brother. Primary oscar (more content not included)... [facility] Comment on above: Result Comment: Elec tronically Signed By: MARTÍN PARISH, Funmi Santos\.silvio\Date and Time Signed: 04/16/24 16:19 EDT 03-22-2024 Note [place] [facility]iology - [facility] Subjective Funmi Julio is a [...] complication, without long-term current use of insulin ([facility]) Family History Problem Relation Name Age [...] that time he had ran out of [employer] and this was refilled. His blood pressure [...] that they are referring him to a data security coordinator for follow-up. Review of Systems Cardiovascular: Positive [...] morni (more content not included)... [facility] 08-31-2023 Note Patient here for 1 y ear follow up CAD, hypertension, and hyperlipidemia. Dr. Thibodeaux increased metoprolol to 100mg daily at last apt. Had routine labs in Jun 2023. Denies chest pain and SOB. Review of Systems Constitutional: Positive for malaise/fatigue. Musculoskeletal: Positive for back pain. Neurological: Positive for light-headedness. All other systems reviewed and are negative. [facility] 08-31-2023 Note Cardiovascular Medic [facility] SUBJECTIVE Chief Complaint Patient presents [...] this year. 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 [facility] Evaluation + Plan note No data available for this section [facility] [place] Evaluation + Plan note Future Appointments Appointment Date:08/28/2024 10:15:00 AM Scheduled Provider:Tania Mariscal MD Location:[facility] Appointment Type:URO New Patient [facility] Evaluation + Plan note Future Appointments Appointment Date:03/05/2025 09:45:00 AM Scheduled Provider:Tania Mariscal MD Location:[facility] Appointment Type:URO Office Visit Diagnostic Tests PendingTestosterone Level Total 08/28/24 [facility] Evaluation + Plan note Future Appointments Appointment Date:03/12/2025 08:30:00 AM Scheduled Provider: Location:[facility] Appointment Type:URO Nurse Visit Appointment Date:03/19/2025 10:00:00 AM Scheduled Provider:Tania Mariscal MD Location:[facility] Appointment Type:URO Office Visit Future Scheduled TestsPSA Total 03/18/25Hematocrit 03/18/25Testosterone Level Total 03/18/25 [facility] Evaluation note Diagnosis Cognitive impairment- Primary Unspecified persistent mental disorders due to conditions classified elsewhere documented in this encounter [facility]* Diagnosis Solitary pulmonary nodule- Primary Benign essential hypertension ([facility]/HCC) Essential hypertension, benign Chronic GERD Type 2 diabetes mellitus without complication, without long-term current use of insulin ([facility]) Persistent depressive disorder ([facility]) Hyperlipidemia, unspecified hyperlipidemia type ([facility]) Morbid (severe) obesity due to excess calories (E66.01) Primary hypertension (CMS/HCC) Unspecified essential hypertension Coronary arteriosclerosis ([facility]) Coronary atherosclerosis of unspecified type of vessel, [place] or graft Obstructive sleep apnea syndrome Obstructive sleep apnea (adult) (pediatric) Suspected chronic obstructive pulmonary disease based on initial evaluation ([facility]) Skin mole Solitary pulmonary nodule- Primary Obstructive sleep apnea syndrome Obstructive sleep apnea (adult) (pediatric) Primary hypertension (CMS/HCC) Unspecified essential hypertension Type 2 diabetes mellitus without complication, without long-term current use of insulin (CMS/[facility]) Hyperlipidemia, unspecified hyperlipidemia type (CMS/HCC) Type 2 diabetes mellitus without complication, without long-term current use of insulin (CMS/[facility])- Primary Mild cognitive impairment Mild cognitive impairment, so stated Primary hypertension (CMS/HCC) Unspecified essential hypertension Solitary pulmonary nodule Dyslipidemia (CMS/HCC) Other and unspecified hyperlipidemia Coronary arteriosclerosis (CMS/HCC) Coronary atherosclerosis of unspecified type of vessel, [place] or graft BMI 40.0-44.9, adult (CMS/[facility]) Type 2 diabetes mellitus without complication, without long-term current use of insulin (CMS/[facility])- Primary Benign essential hypertension (CMS/HCC) Essential hypertension, benign Chronic GERD Suspected chronic obstructive pulmonary disease based on initial evaluation ([facility]) Mild cognitive impairment Mild cognitive impairment, so stated Acute bronchitis with wheezing Mixed hyperlipidemia (CMS/HCC) Mixed hyperlipidemia Cerumen debris on tympanic membrane of both ears Solitary pulmonary nodule Acquired buried penis Essential (primary) hypertension (CMS/[facility]) Unspecified essential hypertension documented in this encounter [facility]* Diagnosis Solitary pulmonary nodule- Primary Benign essential hypertension (CMS/HCC) Essential hypertension, benign Chronic GERD Type 2 diabetes mellitus without complication, without long-term current use of insulin ([facility]) Persistent depressive disorder (CMS/[facility]) Hyperlipidemia, unspecified hyperlipidemia type (CMS/[facility]) Morbid (severe) obesity due to excess calories (E66.01) Primary hypertension (CMS/HCC) Unspecified essential hypertension Coronary arteriosclerosis (CMS/[facility]) Coronary atherosclerosis of unspecified type of vessel, [place] or graft Obstructive sleep apnea syndrome Obstructive sleep apnea (adult) (pediatric) Suspected chronic obstructive pulmonary disease based on initial evaluation ([facility]) Skin mole Solitary pulmonary nodule- Primary Obstructive sleep apnea syndrome Obstructive sleep apnea (adult) (pediatric) Primary hypertension (CMS/[facility]) Unspecified essential hypertension Type 2 diabetes mellitus without complication, without long-term current use of insulin (CMS/[facility]) Hyperlipidemia, unspecified hyperlipidemia type (CMS/[facility]) Type 2 diabetes mellitus without complication, without long-term current use of insulin (CMS/[facility])- Primary Mild cognitive impairment Mild cognitive impairment, so stated Primary hypertension (CMS/[facility]) Unspecified essential hypertension Solitary pulmonary nodule Dyslipidemia (CMS/HCC) Other and unspecified hyperlipidemia Coronary arteriosclerosis (CMS/HCC) Coronary atherosclerosis of unspecified type of vessel, [place] or graft BMI 40.0-44.9, adult ([facility]) Type 2 diabetes mellitus without complication, without long-term current use of insulin ([facility])- Primary Benign essential hypertension (CMS/HCC) Essential hypertension, benign Chronic GERD Suspected chronic obstructive pulmonary disease based on initial evaluation ([facility]) Mild cognitive impairment Mild cognitive impairment, so stated Acute bronchitis with wheezing Mixed hyperlipidemia (CMS/[facility]) Mixed hyperlipidemia Cerumen debris on tympanic membrane of both ears Solitary pulmonary nodule Acquired buried penis Type 2 diabetes mellitus without complication, without long-term current use of insulin (CMS/[facility])- Primary Mixed hyperlipidemia (CMS/HCC) Mixed hyperlipidemia Primary hypertension (CMS/HCC) Unspecified essential hypertension BMI 40.0-44.9, adult ([facility]) Acute bronchitis with wheezing Hyperlipidemia, unspecified (CMS/[facility]) Essential (primary) hypertension (CMS/HCC) Unspecified essential hypertension Major depressive disorder, recurrent, mild (HCC) ([facility]) Major depressive disorder, recurrent episode, mild Chronic GERD Persistent depressive disorder ([facility]) Suspected chronic obstructive pulmonary disease based on initial evaluation ([facility]) documented in this encounter [facility]* Diagnosis Solitary pulmonary nodule- Primary Benign essential hypertension (CMS/[facility]) Essential hypertension, benign Chronic GERD Type 2 diabetes mellitus without complication, without long-term current use of insulin ([facility]) Persistent depressive disorder (CMS/[facility]) Hyperlipidemia, unspecified hyperlipidemia type (CMS/[facility]) Morbid (severe) obesity due to excess calories (E66.01) Primary hypertension (CMS/[facility]) Unspecified essential hypertension Coronary arteriosclerosis (CMS/[facility]) Coronary atherosclerosis of unspecified type of vessel, [place] or graft Obstructive sleep apnea syndrome Obstructive sleep apnea (adult) (pediatric) Suspected chronic obstructive pulmonary disease based on initial evaluation ([facility]) Skin mole Solitary pulmonary nodule- Primary Obstructive sleep apnea syndrome Obstructive sleep apnea (adult) (pediatric) Primary hypertension (CMS/HCC) Unspecified essential hypertension Type 2 diabetes mellitus without complication, without long-term current use of insulin (CMS/[facility]) Hyperlipidemia, unspecified hyperlipidemia type (CMS/[facility]) Type 2 diabetes mellitus without complication, without long-term current use of insulin (CMS/[facility])- Primary Mild cognitive impairment Mild cognitive impairment, so stated Primary hypertension (CMS/HCC) Unspecified essential hypertension Solitary pulmonary nodule Dyslipidemia (CMS/[facility]) Other and unspecified hyperlipidemia Coronary arteriosclerosis (CMS/HCC) Coronary atherosclerosis of unspecified type of vessel, [place] or graft BMI 40.0-44.9, adult ([facility]) Type 2 diabetes mellitus without complication, without long-term current use of insulin (CMS/[facility])- Primary Benign essential hypertension (CMS[facility] [facility]) Essential hypertension, benign Chronic GERD Suspected chronic obstructive pulmonary disease based on initial evaluation ([facility]) Mild cognitive impairment Mild cognitive impairment, so stated Acute bronchitis with wheezing Mixed hyperlipidemia ([facility]) Mixed hyperlipidemia Cerumen debris on tympanic membrane of both ears Solitary pulmonary nodule Acquired buried penis Type 2 diabetes mellitus without complication, without long-term current use of insulin ([facility])- Primary Mixed hyperlipidemia ([facility]) Mixed hyperlipidemia Primary hypertension ([facility]) Unspecified essential hypertension BMI 40.0-44.9, adult ([facility]) Acute bronchitis with wheezing Hyperlipidemia, unspecified ([facility]) Essential (primary) hypertension ([facility]) Unspecified essential hypertension Major depressive disorder, recurrent, mild (HCC) ([facility]) Major depressive disorder, recurrent episode, mild Chronic GERD Persistent depressive disorder ([facility]) Suspected chronic obstructive pulmonary disease based on initial evaluation ([facility]) Type 2 diabetes mellitus without complication, without long-term current use of insulin ([facility]) documented in this encounter [facility] HealthcareEvaluation note* Diagnosis Type 2 diabetes mellitus without complication, without long-term current use of insulin ([facility])- Primary Benign essential hypertension ([facility]) Essential hypertension, benign Chronic GERD Suspected chronic obstructive pulmonary disease based on initial evaluation ([facility]) Mild cognitive impairment Mild cognitive impairment, so stated Acute bronchitis with wheezing Mixed hyperlipidemia ([facility]) Mixed hyperlipidemia Cerumen debris on tympanic membrane of both ears Solitary pulmonary nodule Acquired buried penis documented in this encounter [facility]* Diagnosis Mild cognitive impairment- Primary Mild cognitive impairment, so stated Memory loss ZENON on CPAP Depression, unspecified depression type ([facility]) History of alcohol abuse Nondependent alcohol abuse, in remission documented in this encounter [facility]* Diagnosis Memory loss- Primary ZENON on CPAP Depression, unspecified depression type ([facility]) History of alcohol abuse Nondependent alcohol abuse, in remission documented in this encounter [facility]* Diagnosis Type 2 diabetes mellitus without complication, without long-term current use of insulin ([facility]) documented in this encounter [facility] HealthcareHospital Discharge instructions No data available for this section [facility] [place] Progress note No data available for this section [facility] [place] Reason for referral (narrative)* Consultation (Routine) - Pending Review Specialty Diagnoses / Procedures Referred By Contac t Referred To Contact Urology Diagnoses Acquired buried penis Procedures [place] OFFICE/OUTPATIENT NEW HIGH MDM 60 MINUTES Chioma Hardy NP [address] [place] [address] Maximilian Mata MD [address] [place] [address] Referral ID Status Reason Start Date Expiration Date Visits Requested Visits Authorized [id number] Pending Review Specialty Services Required 07/23/2024 01/19/2025 1 1 Scheduling Instructions Please include OV note from 07/23 [facility] Narrative* Consultation (Routine) - Closed Specialty Diagnoses / Procedures Referred By Contac t Referred To Contact Psychology / Neurology Diagnoses Mild cognitive impairment Procedures [place] OFFICE/OUTPATIENT NEW HIGH [facility] 60 MINUTES Tania Lucero DO [address] [place], [place] [id number] Deshawn Hernandes, PhD [address] [place] [id number] Referral ID Status Reason Start Date Expiration Date V isits Requested Visits Authorized [id number] Closed Specialty Services Required 07/08/2024 01/04/2025 1 1 [facility] Summary Purpose Family History No Family History [...] Directives Records FoundNo Advanced Directives Records Found Reason for Referral Specialty Diagnoses / Procedures Referred By Ben t Referred To Contact Diagnoses Type 2 diabetes mellitus without complication, without long-term current use of insulin ([facility]) Chioam Hardy NP [address] [place] [address] Referral ID Status Reason Start Date Expiration Date Visits Re quested Visits Authorized [id number] Closed 1 1 Additional Source Comments (unrecognized sect ion and content) No Status Records FoundNo Status Records FoundNo Status Records FoundNo Status Records Found INFORMATION SOURCE (unrecogn ized section and content) DATE CREATED AUTHOR 07/03/2022 [facility] DATE CREATED AUTHOR AUTHOR'S ORGANIZ ATION 03/24/2024 [facility] DATE CREATED AUTHOR AUTHOR'S ORGANIZ ATION 02/12/2025 [facility] DATE CREATED AUTHOR AUTHOR'S ORGANIZ ATION 03/10/2025 [facility] Patient Care team informatio n (unrecognized section and content) Wire Spinner Relationship Specialty Start Date End Date Rachid Barillas MD [address] [place] [phone] PCP - [employer] 10/27/23 Rachid Barillas MD [address] [place] [address] PCP - General Family Medicine 07/23/24 Chioma Hardy NP [address] [place] [address] Nurse Practitioner Family Medicine 07/01/24 Wire Spinner Relationship Specialty Start Date End Date Rachid Barillas MD [address] [place] [address] PCP - [employer] 10/27/23 Rachid Barillas MD [address] [place] [address] PCP - General Family Medicine 07/23/24 Chioma Hardy NP [address] [place] [address] Nurse Practitioner Family Medicine 07/01/24 Wire Spinner Relationship Specialty Start Date End Date Rachid Barillas MD [address] [place] [address] PCP - [employer] 10/27/23 Rachid Barillas MD [address] [place] [address] PCP - General Family Medicine 07/23/24 Chioma Hardy NP [address] [place] [address] Nurse Practitioner Family Medicine 07/01/24 Wire Spinner Relationship Specialty Start Date End Date Rachid Barillas MD [address] [place] [address] PCP - [employer] 10/27/23 Rachid Barillas MD [address] [place] [address] PCP - General Family Medicine 07/23/24 Chioma Hardy NP [address] [place] [address] Nurse Practitioner Family Medicine 07/01/24 Wire Spinner Relationship Specialty Start Date End Date Rachid Barillas MD [address] [place] [address] PCP - [employer] 10/27/23 Rachid Barillas MD [address] [place] [address] PCP - General Family Medicine 07/23/24 Chioma Hardy NP [address] [place] [address] Nurse Practitioner Family Medicine 07/01/24 Wire Spinner Relationship Specialty Start Date End Date Rachid Barillas MD [address] [place] [address] PCP - [employer] 10/27/23 Rachid Barillas MD [address] [place] [address] PCP - General Family Medicine 07/23/24 Chioma Hardy NP [address] [place] [address] Nurse Practitioner Family Medicine 07/01/24 Wire Spinner Relationship Specialty Start Date End Date Rachid Barillas MD [address] [place] [address] PCP - [employer] 10/27/23 Rachid Barillas MD [address] [place] [address] PCP - General Family Medicine 07/23/24 Chioma Hardy NP [address] [place] [address] Nurse Practitioner Family Medicine 07/01/24 Wire Spinner Relationship Specialty Start Date End Date Rachid Barillas MD [address] [place] [address] PCP - [employer] 10/27/23 Rachid Barillas MD [address] [place] [address] PCP - General Family Medicine 07/23/24 Chioma Hardy NP [address] [place] [address] Nurse Practitioner Family Medicine 07/01/24 Wire Spinner Relationship Specialty Start Date End Date Rachid Barillas MD [address] [place] [address] PCP - [employer] 10/27/23 Rachid Barillas MD [address] [place] [address] PCP - General Family Medicine 07/23/24 Chioma Hardy NP [address] [place] [address] Nurse Practitioner Family Medicine 07/01/24 Wire Spinner Relationship Specialty Start Date End Date Rachid Barillas MD [address] [place] [address] PCP - [employer] 10/27/23 Rachid Barillas MD [address] [place] [address] PCP - General Family Medicine 07/23/24 Chioma Hardy NP [address] [place] [address] Nurse Practitioner Family Medicine 07/01/24 Wire Spinner Relationship Specialty Start Date End Date Rachid Barillas MD [address] [place] [address] PCP - [employer] 10/27/23 Rachid Barillas MD [address] [place] [address] PCP - General Family Medicine 07/23/24 Chioma Hardy NP [address] [place] [address] Nurse Practitioner Family Medicine 07/01/24 Wire Spinner Relationship Specialty Start Date End Date Rachid Barillas MD [address] [place] [address] PCP - [employer] 10/27/23 Rachid Barillas MD [address] [place] [address] PCP - General Family Medicine 07/23/24 Chioma Hardy NP [address] [place] [address] Nurse Practitioner Family Medicine 07/01/24 Wire Spinner Relationship Specialty Start Date End Date Rachid Barillas MD [address] [place] [address] PCP - [employer] 10/27/23 Rachid Barillas MD [address] [place] [address] PCP - General Family Medicine 07/23/24 Chioma Hardy NP [address] [place] [address] Nurse Practitioner Family Medicine 07/01/24 Reason for Visit (unrecogniz ed section and content) Reason Comments Follow-up Reason Comments Med Change Request Reason Comments Follow-up Reason Onset Date Comments Med Refill 08/21/2024 FOR RECORDS PERTAINING TO PATIENTS WHO ARE [...] BE BASED ON THE PRIMARY CLINICAL RECORDS. [employer] [facility]. provides no warranty or guarantee of the accuracy or completeness of information in this document.
[2025-03-12 08:42] LABS: Basophils Absolute Auto 0.1 10^3/uL (0.0-0.1); Basophils Percent Auto 0.6 % (0.2-2.0); Eosinophils Absolute Auto 0.3 10^3/uL (0.0-0.7); Eosinophils Percent Auto 2.5 % (0.9-7.0); Hematocrit 43.6 % (42.0-54.0); Hemoglobin 14.5 g/dL (14.0-18.0); Immature Granulocytes Abs Auto 0.05 10^3/uL (0.00-0.03); Immature Granulocytes Pct Auto 0.5 % (0.0-0.5); Lymphocytes Absolute Auto 3.6 10^3/uL (1.2-3.8); Lymphocytes Percent Auto 34.5 % (20.5-60.0); Mean Corpuscular HGB Conc 33.3 g/dL (29.9-35.2); Mean Corpuscular Hemoglobin 29.1 pg (25.9-34.0); Mean Corpuscular Volume 87.4 fL (80.0-94.0); Mean Platelet Volume 8.7 fL (9.5-13.5); Monocytes Absolute Auto 0.7 10^3/uL (0.3-0.8); Monocytes Percent Auto 6.6 % (1.7-12.0); Neutrophils Absolute Auto 5.8 10^3/uL (1.4-6.5); Neutrophils Percent Auto 55.3 % (43.0-75.0); Platelet Count 347 10^3/uL (150-450); Red Blood Count 4.99 10^6/uL (4.70-6.10); Red Cell Distribution Width 14.1 % (11.0-15.0); White Blood Count 10.4 10^3/uL (4.0-11.0)
[2025-03-12 08:55] LABS: Bilirubin Urine NEGATIVE (NEGATIVE); Blood Urine NEGATIVE (NEGATIVE); Clarity Urine CLEAR (CLEAR); Color Urine YELLOW (YELLOW); Glucose Urine UA NEGATIVE (NEGATIVE); Ketones Urine NEGATIVE (NEGATIVE); Leukocyte Esterase Urine NEGATIVE (NEGATIVE); Nitrite Urine NEGATIVE (NEGATIVE); Protein Urine TRACE mg/dL (NEG/TRACE)
[2025-03-12 08:56] LABS: Urine Microscopic Indicated NO
[2025-03-12 09:12] LABS: Creatinine Urine Random 184.26 mg/dL (20.00-300.00); Microalbum Creatinine Ratio Ur 21.1 mg/g (0.0-29.9); Microalbumin Urine Random 3.9 mg/dL (<=30.0)
[2025-03-12 09:12] LABS: Alanine Aminotransferase 38 U/L (16-63); Albumin Level 3.7 g/dL (3.4-5.0); Alkaline Phosphatase 84 U/L (46-116); Anion Gap 11.2; Aspartate Amino Transferase 20 U/L (15-37); BUN Creatinine Ratio 13.1; Bilirubin Total 0.4 mg/dL (0.2-1.0); Calcium 8.8 mg/dL (8.5-10.1); Carbon Dioxide 29.7 mmol/L (21.0-32.0); Chloride 101 mmol/L (98-107); Chol HDL Ratio 3.2; Cholesterol 107 mg/dL (<=200); Estimated GFR (African America >60 (>=60 mL/min/1.73m^2); Estimated GFR (Non-African Ame >60 (>=60 mL/min/1.73m^2); Globulin 3.8 g/dL; Glucose 148 mg/dL (74-106); HDL Cholesterol 33 mg/dL (40-60); Potassium 3.9 mmol/L (3.5-5.1); Sodium 138 mmol/L (136-145); Total Protein 7.5 g/dL (6.4-8.2); Triglycerides 101 mg/dL (<=150); VLDL CHOLESTEROL 20.2 mg/dL
== END 2025-03-12 08:25 | disposition home or self-care (01) ==
LOC: LAB 08:27
PROVIDERS: PCP Nurse Practitioner; Visit Provider Nurse Practitioner
DX: G47.33 Obstructive sleep apnea (adult) (pediatric) (principal); K21.9 Gastro-esophageal reflux disease without esophagitis; E66.01 Morbid (severe) obesity due to excess calories; I10 Essential (primary) hypertension; I25.10 Atherosclerotic heart disease of native coronary artery without angina pectoris; E11.9 Type 2 diabetes mellitus without complications; E78.2 Mixed hyperlipidemia; Z12.5 Encounter for screening for malignant neoplasm of prostate
CPT/HCPCS: 36415; 80053; 80061; 81003; 82043; 82570; 85025; G0103

== ENCOUNTER 2025-04-02 08:01 | Outpatient (OUT) | payer MEDICARE, SELFPAY ==
[2025-04-02 09:04] LABS: BUN Creatinine Ratio 8.2; Calcium 9.1 mg/dL (8.5-10.1); Chloride 98 mmol/L (98-107); Estimated GFR (African America >60 (>=60 mL/min/1.73m^2); Estimated GFR (Non-African Ame >60 (>=60 mL/min/1.73m^2); Glucose 145 mg/dL (74-106); Sodium 136 mmol/L (136-145)
== END 2025-04-02 08:02 | disposition home or self-care (01) ==
LOC: LAB 08:05
PROVIDERS: PCP Nurse Practitioner; Visit Provider Internal Medicine Interventional Cardiology
DX: R06.02 Shortness of breath (principal); I10 Essential (primary) hypertension; R60.0 Localized edema
CPT/HCPCS: 80048; 83880

== ENCOUNTER 2025-04-02 08:13 | Outpatient (OUT) | payer MEDICARE, SELFPAY ==
--- NOTE | 2025-04-02 08:15 | CT_ITS ---
The [address] [address] Patient Name: FUNMI JULIO MRN: [id number] date: 1955 Sex: M Assigned Patient Location: CT Current Patient Location: CT Accession/Order Number: [id number] Exam Date: 04/02/2025 09:52 Report Date: 04/02/2025 09:55 At the request of: FRACISCO MORRISON DO Procedure: CT chest wo con CT CHEST WITHOUT IV CONTRAST: CLINICAL HISTORY: Solitary Pulmonary Nodule COMPARISON: CT chest 03/06/2024 TECHNIQUE: Spiral images were obtained through the chest without IV contrast. This CT exam was performed using one or more following dose reduction techniques: Automated exposure control, adjustment of the mA and/or kV according to patient size, or use of iterative reconstruction technique. FINDINGS: Mediastinum:Thoracic aorta appears normal in caliber. Pulmonary trunk appears nondilated. No pericardial effusion. No lymphadenopathy. Partially calcified mediastinal and left hilar lymph nodes. The esophagus is grossly unremarkable Lungs:Bibasilar atelectasis. No consolidation pneumothorax or pleural effusion. Calcified granuloma left lower lobe. A granuloma right upper lobe. Previously identified 1 cm nodule involving the right lower lobe appears to represent an area of focal scarring or subsegmental atelectasis particularly on the sagittal reconstructions. No suspicious pulmonary nodule is seen. Abd:No acute findings. Liver and splenic granulomas. Soft tissues/Bones: No acute findings. Osseous structures demonstrate degenerative change. CT/CT chest wo con IMPRESSION: No suspicious pulmonary nodule seen on today's study. The previously identified 1 cm nodule appears to represent area of focal atelectasis or scarring. Impression dictated by: John Sneed Jr., D.O. 04/02/2025 9:55 AM Dictation Location: [place] [address] Electronically authenticated by: [id number] Y Date: 04/02/2025 09:55
== END 2025-04-02 08:14 | disposition home or self-care (01) ==
LOC: CT 08:13
PROVIDERS: PCP Nurse Practitioner; Visit Provider Internal Medicine
DX: R91.1 Solitary pulmonary nodule (principal)
CPT/HCPCS: 71250

== ENCOUNTER 2025-04-04 08:53 | Outpatient (OUT) | payer MEDICARE, SELFPAY ==
--- NOTE | 2025-04-04 09:00 | CA_ITS ---
Patient Name Site Name FUNMI JULIO The [facility] Account No Medical Record Number Age Sex Date Time [id number] [facility]:[id number] M 04/04/2025 09:02 At the Request Of RONDA THIBODEAUX ECHOCARDIOGRAM REPORT PROCEDURE: CA ECHO DOPPLER COMPLETE INDICATIONS: Shortness of breath, edema, diabetes COMPARISON: None. DESCRIPTION: COMPLETE ECHOCARDIOGRAM Real-time transthoracic echocardiography with 2D, M-mode, spectral and color flow Doppler performed. QUALITY: Technical quality was adequate. LEFT VENTRICLE: Normal chamber size. Mild concentric left ventricular hypertrophy. LV EF: Normal left ventricular systolic function without wall motion abnormalities, ejection fraction 60% DIASTOLIC: Normal diastolic function. ATRIAL SEPTUM: Appears intact LEFT ATRIUM: Normal chamber size. RIGHT ATRIUM: Normal chamber size. RIGHT VENTRICLE: Normal chamber size. Normal right ventricular systolic function. TRICUSPID VALVE: Normal mobility and thickness. No stenosis with no regurgitation therefore could not evaluate RVSP. MITRAL VALVE: Normal mobility and thickness. No evidence of mitral valve stenosis. There is no mitral annular calcification. No mitral regurgitation. AORTIC VALVE: Normal trileaflet appearance. No visible sclerosis. Normal leaflet mobility. No evidence of aortic valve stenosis. No aortic regurgitation. AORTIC ROOT: Normal diameter and appearance. Ascending aorta is normal in size. PULMONIC VALVE: Normal thickness and mobility. No stenosis. No regurgitation. PERICARDIUM: No evidence of pericardial effusion. IVC: Not well visualized. PLEURA: CONCLUSION: Normal left ventricle size, wall thickness and systolic function without wall motion abnormalities, ejection fraction 60% Normal left ventricle diastolic function Normal right ventricle size and systolic function No significant valvular abnormalities Adult Echocardiography Procedure Report Left Ventricle LVEDD (3.7 - 5.6 cm): 4.64 cm LVESD (2.2 - 4.0 cm): 2.65 cm LVIVS thickness (0.6 - 1.2 cm): 1.14 cm LVPW thickness (0.5 - 1.0 cm): 1.23 cm e': 0.10 m/s E - e': 4.64 LVOT Max Gradient: 8.44 mm[Hg] LVOT Area (cm2): 1.45 m/s Peak Velocity (LVOT): 1.45 m/s Mean Velocity (LVOT): 0.93 m/s LVOT Diameter 2.76 cm Left Ventricular Ejection Fraction: Left Atrium LA Volume Index (2D A2C): 19.74 ml/m2 Left Atrium Systolic Dimension: 3.98 cm Mitral Valve MV E to A Ratio: 0.73 MV Max Gradient: MV Mean Gradient: Mitral Valve A-Wave Peak Velocity: 0.65 m/s Mitral Valve E-Wave Peak Velocity: 0.48 m/s Cardiovascular Orifice Area: Right Ventricle RV Internal Diastolic Dimension: Aorta AO Root Diam: 3.58 cm Ascending Ao Diam: 3.26 cm Aortic Valve AoV Area (Peak Woo): 5.76 cm2, 5.76 cm2 AoV Area (VTI): 4.92 cm2, 4.92 cm2 Deceleration [place]: Pressure Half-Time: Peak Velocity(Antegrade Flow): 1.51 m/s Peak Gradient(Antegrade Flow): 9.15 mm[Hg] Mean Velocity(Antegrade Flow): 0.96 m/s Mean Gradient(Antegrade Flow): 4.47 mm[Hg] Velocity Time Integral: 33.51 cm Tricuspid Valve Peak Velocity (Regurgitant Flow): Peak Velocity: Pulmonic Valve Mean Gradient: 2.42 mm[Hg] Mean Velocity: 0.72 m/s Peak Velocity: 1.15 m/s, 1.14 m/s Peak Gradient: 5.15 mm[Hg], 5.30 mm[Hg] Right Atrium Right Atrium Systolic Pressure: 67.75 ml, 67.75 ml Dictated by: Clay Ruvalcaba MD on 04/04/2025 at 18:06 Approved by: Clay Ruvalcaba MD on 04/04/2025 at 18:12
== END 2025-04-04 08:54 | disposition home or self-care (01) ==
LOC: CARD 08:54
PROVIDERS: PCP Nurse Practitioner; Visit Provider Internal Medicine Interventional Cardiology
DX: E78.2 Mixed hyperlipidemia (principal); R06.02 Shortness of breath
CPT/HCPCS: 93306

== ENCOUNTER 2025-08-13 11:07 | Outpatient (OUT) | payer MEDICARE, SELFPAY ==
--- OUTSIDE RECORDS SUMMARY | 2022-03-22 09:47 | XMS_ITS | Continuity of Care Document ---
Author Organization [facility] rtment Address [address] [place] [address] Phone Care Team Providers Care [employer] Consultant Name Role Phone Anna Duncan APRN, CNP Unavailable Unavailab le Allergies, Adverse Reactions, Alerts Substance Reaction Status Criticality No Known Allergies Active No Inform ation Medications Medication Instructions Dosage Effective Dates (start - stop) Status Comments Vazalore 81 mg capsule take 1 capsule by oral route every day 81 MG - Active Plavix 75 mg tablet take 1 tablet by ora l route every day 75 MG - Active atorvastatin 80 mg tablet take 1 tablet by oral route every day 80 MG - Active carvedilol 3.125 mg tablet take 1 tablet by oral route 2 times every day with food 3.125 MG - Active furosemide 20 mg tablet take 1 tablet by oral route every day 20 MG - Active Lasix 20 mg tablet take 1 tablet by ora l route every day 20 MG - Active ELIQUIS 5 mg ORAL - Active Procedures Procedure Date RPR ROUTINE VENIPUNCTURE IM injection of antibiotic (ex. Bicillin , Gent.) OFFICE/OUTPATIENT VISIT, EST ADMN MODERNA SARSCOV2 .5ML IST DOSE MODERNA SARSCOV2 VACCINE .5 ML 21 Advance Directives Directive Yes / No Effective Date File Name No Information Encounters Encounter Description Practice Location Reason(s) For Visit Diagnoses Date Provider Providers Copied on Encounter [facility] t, [address], [place], [place], [id number] , [place] tel:[phone] [facility] No Information 2 Dakota Castillo. [address] [place], [place], [id number] , [place]. tel:[phone] OFFICE/OUTPA TIENT VISIT, EST [facility] t, [address], [place], [place], [id number] , [place] tel:[phone] [facility] STI Screening/Theresa tment (chief complaint) Encntr screen for infections w sexl mode of transmissEnco unter for family planning adviceSyphili s 2 Dakota Castillo. [address] [place], [place], [id number] , [place]. tel:[phone] Referring Provider: Anna Santos, [address] [place], [address] . tel:[phone] [facility] t, [address] [place], [place], [id number] , [place] tel:[phone] [facility] Immunization immunizations (chief complaint) No Information 1 Mika Reed. [address] [place], [place], [id number] , [place]. tel:[phone] Family History Family Member Type Diagnosis Age At Onset No Information Immunizations Vaccine Date Status Comments Moderna mRNA-1273 COVID-19 Vaccine refused Note: TPV1 ; Source: New Immunization Record Moderna mRNA-1273 COVID-19 Vaccine administered Note: TPV1 ; Source: New Immunization Record Payers Payer name Insurance type Covered democrat ID Authoriza tion(s) No Information Social History Type Description Quantity Date Captured Comments Alcohol Use Details Unknown Caffeine Use Details Unknown Tobacco Use Status Smoking Status No Information Sex Male Chief Complaint And Reason For Visit No Information Reason For Referral Reason For Referral No Information Plan Of Treatment Date Type Action Status Goal Flu (split) (3 y rs or older). Due on due Goal Flu (split) (3 y rs or older). Due on due Future Order: Lab Order RPR W/re flex FTA (RPR), Appointment on: , Sent on: Sent Future Order: Lab Order Venipivonne enriquez (AMY), Appointment on: , Sent on: Sent History Of Present Illness Encounter Date Complaint History Of Prese nt Illness STI Screening/Treatment Patient denies having any symptoms today. Patient's current partners are women. Patient presents for pos RPR. Patient reports never using condoms. Patient does not know of any STI exposure. Additional information: Pt was called and told he had a +RPR from [place] a couple of weeks. Was not treated. Denies having syphilis in the past. Denies any painless sore or rashes. Desires RPR only. /HARISH Mcknight/Ema MOORE. immunizations Functional Status Date Functional Assessmen t No Information Instructions Date Instruction Additional Infor mation Pt presents for visi t today due to contact to syphilis. Last known contact was last week. Partner was tested last month due to rash on her stomach. She has been treated. RPR drawn today and returned 1:128. Pt denies any sores, rashes, memory loss, fever, headaches, visual changes. On exam there is a slight rash noted to the bottom of the feet bilaterally. There is also a slight rash at the patient's lower back. There are no open sores present. Treated today with 1 dose Bicillin 2,400,000 IM in R gluteus. Pt denies allergies. pt unable to stay to speak with DIS or wait for RPR results. Called patient to notify of positive RPR. Left message for him to call back. Pt treated appropriately. Educated to return in 3 months for retesting and to abstain from sexual activity for 7 days following treatment. 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 Jesu Chacon RN/EJesson CREDIT ADJUSTER-AUTO CLOCKS REPAIRER Related to Encntr screen for infections w sexl mode of transmiss Does not desire a ch ild within the next year. Opts for partner's method today. Reports he feels safe. Denies abuse or coercion. Sexual health risk assessment completed. Benefits of sexual risk avoidance discussed. Promoted aspects of a healthy partner relationship and family involvement encouraged. Pt declines condoms. Jesu Chacon RN/Ema CREDIT ADJUSTER-AUTO CLOCKS REPAIRER Related to Encounter for family planning advice Assessments Type Assessment Date No Information Patient Care Teams Name Effective Dates (start - stop) Status Members No Information
--- OUTSIDE RECORDS SUMMARY | 2025-08-13 11:10 | XMS_ITS | Encounter Summary ---
Author Organization [facility] Address [address] [place] [address] Care Team Providers Care Staff Counselor Name Role Phone Rachid Henning MD Primary Care Provider [phone] Rachid Henning MD Primary Care Provider [phone] Shaikh МАРИНА Acevedo Primary Care Provider [phone] Tammy Hardy DAIRY INSPECTOR Unavailable [phone] Rachid Henning MD Primary Care Provider [phone] Shaikh МАРИНА Acevedo Unavailable [phone] Encounter Details Date Type Department Care Team (Late st Contact Info) Description 11/18/2023 Clinisync Result Encounter [facility] External Department Unsolicited Shaikh Acevedo MD [address] [place] [address] Social History Tobacco Use Types Packs/Day Years Used Date Smoking Tobacco: Never Smokeless Tobacco: Current Chew Alcohol Use Standard Drinks/Week Comments Never 0 (1 standard drink = 0.6 oz pur e alcohol) Sex and Gender Information Value Date Recorded Sex Assigned at Not on file Legal Sex Male 7:19 PM EDT Gender Identity Not on file Sexual Orientation Not on file documented as of this encounter Plan of Treatment Not on file documented as of this encounter Procedures Procedure Name Priority Date/Time Associated Diagnosis Comments XR CHEST 2V 11/18/2023 1:56 AM EST documented in this encounter Results * XR CHEST 2V (11/18/2023 1:56 AM EST) Anatomical Region Laterality Modality Other 11/18/2023 1:56 AM EST Narrative 11/18/2023 1:59 AM EST [address] [address] XRay Report Signed Patient: JAYSON PAUL MR#: [id number] : 1955 Acct:[id number] Age/Sex: 67 / M ADM Date: 11/16/23 Loc: LAB Attending Dr: Shaikh Kristina Diane Ordering Physician: Shaikh Roxi Acevedo Date of Service: 11/16/23 Procedure(s): XR chest 2V Accession Number(s): [id number] cc: Shaikh Roxi Acevedo; Rachid Henning M.D. [address] [address] Patient Name: JAYSON PAUL MRN: [id number] date: 1955 Sex: M Assigned Patient Location: LAB Current Patient Location: LAB Accession/Order Number: [id number] Exam Date: 11/16/2023 10:21 Report Date: 11/18/2023 01:56 At the request of: SHAIKH KRISTINA Procedure: XR chest 2V EXAMINATION: XR chest 2V HISTORY: acute bronchitis with wheezing J20.9 , cough, congestion COMPARISON: No relevant comparison available. FINDINGS: LUNGS: Mild haziness and stranding within left midlung and a few small opacities. VASCULATURE: No increased pulmonary vasculature. PLEURA: No pneumothorax, effusion, or pleural thickening. CARDIAC: No cardiomegaly or cardiac silhouette abnormality. MEDIASTINUM: No visible mass or adenopathy. BONES: No fracture or visible bone lesion. OTHER: Negative. XR/XR chest 2V IMPRESSION: 1. Mild atelectasis or infiltrates within left midlung. Consider follow-up to document clearing. Electronically authenticated by: DRE IRVIN Date: 11/18/2023 01:56 Dictated By: Dre Irvin M.D. Signed By: 11/18/23 0159 DD/ 0156 TD/TT: Rig Builder: Procedure Note Radiology, Radiologist, - 11/18/2023 [facility] [id number] XRay Report Signed Patient: JAYSON PAULMR#: [id number] : 1955cct:[id number] Age/Sex: 67 / MADM Date: 11/16/23 Loc: LAB Attending Dr: Shaikh Kristina Diane Ordering Physician: Shaikh Roxi Acevedo Date of Service: 11/16/23 Procedure(s): XR chest 2V Accession Number(s): [id number] cc: Shaikh Roxi Acevedo; Rachid Henning M.D. [facility] [place] [facility] [id number] Patient Name: JAYSON PAUL MRN: [id number] date: 1955 Sex: M Assigned Patient Location: LAB Current Patient Location: LAB Accession/Order Number: [id number] Exam Date: 11/16/2023 10:21 Report Date: 11/18/2023 01:56 At the request of: SHAIKH KRISTINA Procedure: XR chest 2V EXAMINATION: XR chest 2V HISTORY: acute bronchitis with wheezing J20.9 , cough, congestion COMPARISON: No relevant comparison available. FINDINGS: LUNGS: Mild haziness and stranding within left midlung and a few small opacities. VASCULATURE: No increased pulmonary vasculature. PLEURA: No pneumothorax, effusion, or pleural thickening. CARDIAC: No cardiomegaly or cardiac silhouette abnormality. MEDIASTINUM: No visible mass or adenopathy. BONES: No fracture or visible bone lesion. OTHER: Negative. XR/XR chest 2V IMPRESSION: 1. Mild atelectasis or infiltrates within left midlung. Consider follow-upto document clearing. Electronically authenticated by: DRE IRVIN Date: 11/18/2023 01:56 Dictated By: Dre Irvin M.D. Signed By:11/18/23 0159 DD/ 0156 TD/TT: Rig Builder: Shaikh Kristina [facility] Final Result documented in this encounter Visit Diagnoses Not on filedocumented in this encounter Care Teams Staff Counselor Relationship Specialty Start Date End Date Rachid Henning MD PCP - General Family Medicine 06/08/23 01/11/24 Rachid Henning MD PCP - General Family Medicine 01/12/24 01/24/24 Shaikh Acevedo MD [address] [place] [id number] PCP - General Internal Medicine 01/25/24 06/30/24 Rachid Henning MD PCP - General Family Medicine 07/23/24 Shaikh Acevedo MD [address] [place] [id number] PCP - [employer] 10/27/23 Tammy Hardy NP [address] [place] [phone] Nurse Practitioner Family Medicine 07/01/24 documented as of this encounter
--- OUTSIDE RECORDS SUMMARY | 2025-08-13 11:10 | XMS_ITS | Encounter Summary ---
Author Organization [employer] Address [id number] [address] [place] [address] Care Team Providers Care Shrimp Peeler Name Role Phone Rachid Henning MD Primary Care Provider [phone] Encounter Details Date Type Department Care Team (Late st Contact Info) Description 04/04/2022 Orders Only [facility] Internal Medicine [address] [place] [address] Emeli Cardenas CMA Essential hypertension Social History Tobacco Use Types Packs/Day Years Used Date Smoking Tobacco: Former Cigarettes 1 6 1 985 - 1990 Smokeless Tobacco: Current Chew Alcohol Use Standard Drinks/Week Comments Yes 0 (1 standard drink = 0.6 oz pur e alcohol) PHQ-2 Answer Date Recorded Total Score 0 01/11/2021 Childcare Answer Date Recorded Childcare Unknown 11/10/2020 Employment Answer Date Recorded Employment Unknown 11/10/2020 Purpose - Life Answer Date Recorded Purpose and direction in life Unknown Sex and Gender Information Value Date Recorded Sex Assigned at Not on file Legal Sex Male 11:26 AM EDT Gender Identity Not on file Sexual Orientation Not on file COVID-19 Exposure Response Date Recorded In the last 10 days, have yo u been in contact with someone who was confirmed or suspected to have Coronavirus/COVID-19? No / Unsure 04/04/2022 8:46 AM EDT documented as of this encounter Plan of Treatment Not on file documented as of this encounter Procedures Procedure Name Priority Date/Time Associated Diagnosis Comments ECHO 2.0 Routine 01/12/2022 CBC (NO DIFF) Routine 01/12/2022 Essential hypertension documented in this encounter Results * (ABNORMAL) CBC without diff (01/12/2022) External Hematocrit Hct 44.2 42 - 54 [facility] External Hemoglobin 14.8 14 - 18 [facility] External Mpv 8.7(A) 9.5 - 13.5 [facility] External Platelet Count 330 150 - 450 [facility] External Rbc Count 4.85 4.70 - 6.10 [facility] External Rdw 13.1 11 - 15 [facility] External Wbc Count 9.6 4 - 11 [facility] 01/12/2022 us Reginaldo Keene GAS ATTENDANT-PHOTOCOPYING EQUIPMENT MECHANIC LAB BLOOD ORDERABLES F inal Result [facility] * Echo 2.0 (01/12/2022) Anatomical Region Laterality Modality Chest N/A Ultrasound us Not In System Ref Prov CV ECHO ORDERABLES Final Result documented in this encounter Visit Diagnoses Diagnosis Essential hypertension Unspecified essential hypertension documented in this encounter Additional Health Concerns Assessment Noted Time PHQ-9 Depression Total Score: 0 01/11/20 21 8:00 AM EST A Body Mass Index follow-up plan has been documented for the patient 04/04/2022 9:51 AM EDT documented as of this encounter Care Teams Shrimp Peeler Relationship Specialty Start Date End Date Rachid Henning MD PCP - General Family Medicine 04/03/23 documented as of this encounter
--- OUTSIDE RECORDS SUMMARY | 2025-08-13 11:10 | XMS_ITS | Clinical Summary ---
Author Organization [facility] Healthcare Address [address] [place] [address] Care Team Providers Care Classifications Officer Cc/Cm Name Role Phone Tammy Hardy NP Unavailable [phone] Rachid Henning MD Primary Care Provider [phone] Shaikh МАРИНА Acevedo Unavailable [phone] Allergies Active Allergy Reactions Criticality Noted Date Comments Oxycodone Hives Medium 11/16/2023 Medications albuterol HFA (Ventolin HFA) 90 mcg/act inhalerIndication s:Suspected chronic obstructive pulmonary disease based on initial evaluation ([facility]) Inhale 2 puffs every 4 (four) hours if needed for wheezing 18 g 4 Active amLODIPine (Norvasc) 10 MG tabletIndications :Primary hypertension Take 1 tablet (10 mg) by mouth Daily 90 tablet 1 4 Active ASPIRIN 81 MG chewable tabletIndications :Primary hypertension Chew 1 tablet (81 mg) Daily 90 tablet 2 4 Active fexofenadine (Lamar Allergy) 180 MG tabletIndications :Suspected chronic obstructive pulmonary disease based on initial evaluation ([facility]) Take 1 tablet (180 mg) by mouth Daily 90 tablet 4 Active isosorbide mononitrate ER (Imdur) 60 MG 24 hr tabletIndications :Primary hypertension Take 1 tablet (60 mg) by mouth Daily 90 tablet 4 Active lisinopril-hydroC HLOROthiazide 20-12.5 MG tabletIndications :Essential (primary) hypertension Take 1 tablet by mouth Daily 90 tablet 1 4 Active metoprolol succinate XL (Toprol-XL) 100 MG 24 hr tabletIndications :Primary hypertension Take 1 tablet (100 mg) by mouth in the morning. 30 tablet 14 4 01/15/20 26 Active omeprazole (PriLOSEC) [address] capsuleIndication s:Chronic GERD Take 1 capsule (20 mg) by mouth at bedtime 90 capsule 3 4 11/07/20 25 Active PARoxetine (Paxil) 40 MG tabletIndications :Persistent depressive disorder Take 1 tablet (40 mg) by mouth Daily 90 tablet 3 4 11/07/20 25 Active metFORMIN (Glucophage) 850 MG tabletIndications :Type 2 diabetes mellitus without complication, without long-term current use of insulin (HCC) Take 1 tablet (850 mg) by mouth in the morning and 1 tablet (850 mg) in the evening. Take with meals. 180 tablet 5 Active anastrozole (Arimidex) 1 MG chemo tablet Take 1 mg by mouth 1 (one) time per week. Active spironolactone (Aldactone) 25 MG tablet Take 12.5 mg by mouth in the morning. 5 03/14/20 26 Active semaglutide (Ozempic, 1 MG/DOSE,) 4 MG/3ML solution pen-injector Inject 1 mg under the skin 1 (one) time per week 4 Active atorvastatin (Lipitor) 40 MG tabletIndications :Hyperlipidemia, unspecified Take 1 tablet (40 mg) by mouth at bedtime 90 tablet 1 5 08/18/20 25 Active Active Problems Problem Noted Date Diagnosed Date Type 2 diabetes mellitus with other specified co mplication 05/13/2025 Assessment & Plan (05/13/2025 6:16 AM EDT): HTN, CAD, ED Encounter for subsequent [facility] wellness visit (AWV) in Medicare patient 05/13/2025 Assessment & Plan (05/13/2025 6:17 AM EDT): Reviewed Ht/Wt/BMI Recommend eye exam yearly Recommend dental exams twice a year Balance work/leisure activities Exercises is recommended most days of the week (appropriate as chronic conditions allow) Follow up yearly and prn Chest pain 03/11/2025 Umbilical hernia 03/11/2025 Pulmonary fibrosis, unspecified 02/10/2025 Assessment & Plan (02/10/2025 6:57 AM EDT): Follows with dr rust Current meds: albuterol prn Morbid (severe) obesity due to excess calories 0 02/10/2025 Assessment & Plan (05/13/2025 6:16 AM EDT): Discussed with patient their BMI (actual, verses recommended). We have also discussed lifestyle modifications: attempts to perform physical activity as chronic conditions allow, also to monitor dietary intake: increasing protein/fruits/veggies and lowering carb intake (unless contraindicated). Limit sodas, juices, and sugary drinks. Assessment & Plan (02/10/2025 6:59 AM EDT): Discussed with patient their BMI (actual, verses recommended). We have also discussed lifestyle modifications: attempts to perform physical activity as chronic conditions allow, also to monitor dietary intake: increasing protein/fruits/veggies and lowering carb intake (unless contraindicated). Limit sodas, juices, and sugary drinks. Calcified granuloma of lung 02/10/2025 Calcified lymph nodes 02/10/2025 ED (erectile dysfunction) 02/10/2025 Former tobacco use 02/10/2025 Hypogonadism male 02/10/2025 Obstructive sleep apnea syndrome 02/10/2025 Assessment & Plan (05/13/2025 6:15 AM EDT): You have a diagnosis of obstructive sleep apnea. It is recommended that you wear your PAP device any time while in bed sleeping. Not using the PAP device can increase your risk of elevated/uncontrolled high blood pressure, atrial fibrillation, heart attack, stroke, or sudden . Compliance with PAP: yes How many hours of use per night: 10 Do you feel more refreshed in the morning: yes Company that supplies your machine and tubing/filters etc: [facility] Doctor that manages your ZENON: Dr Og Assessment & Plan (02/10/2025 1:43 PM EDT): You have a diagnosis of obstructive sleep apnea. It is recommended that you wear your PAP device any time while in bed sleeping. Not using the PAP device can increase your risk of elevated/uncontrolled high blood pressure, atrial fibrillation, heart attack, stroke, or sudden . 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 Has hard time initiating and controlling flow Was taking viagra once per month to help, has never seen urology. Body mass index (BMI) 40.0-44.9, adult Assessment & Plan (11/07/2024 9:48 AM EST): Discussed with patient their BMI (actual, verses recommended). We have also discussed lifestyle modifications: attempts to perform physical activity as chronic conditions allow, also to monitor dietary intake: increasing protein/fruits/veggies and lowering carb intake (unless contraindicated). Limit sodas, juices, and sugary drinks. Also discussed oral medications that can be utilized for weight loss, as well as surgical options for weight loss. Assessment & Plan (05/23/2024 11:00 AM EDT): Patient educated on risks of increased cardiovascular morbidity/mortality and poor health outcomes associated with unhealthy bodyweight. Patient counseled on lifestyle modifications, dietary restrictions. Patient encouraged to limit caloric intake and increase physical activity. Therapeutic and surgical options reviewed with patient . Patient was offered opportunity to ask questions and address their concern. Starting on Ozempic. Follow up in one month Mild cognitive impairment 05/23/2024 Assessment & Plan (02/10/2025 7:03 AM EDT): Under the care of neurology Has also had MRI brain and neuropsych testing as well Assessment & Plan (07/23/2024 12:18 PM EDT): Following with Neurology- Sees Dr. Lucero and was referred to additional specialisat @ [facility] Neurology- Appointment on 07/30/2024; MRI completed on 07/15/2024. Assessment & Plan (05/23/2024 10:59 AM EDT): Mild Cognitive impairment on initial screening. Increasingly forgetful, has to write down everything to remember. Will refer to Neurology. Discussed his alcohol use, drinks about 4-5 cans of beers daily - need to cut down. Suspected chronic obstructiv e pulmonary disease based on initial evaluation 01/25/2024 Assessment & Plan (07/23/2024 12:17 PM EDT): Follows Dr. Rust with Pulmonology Feels symptoms are well managed currently. Continue current regimen. Assessment & Plan (01/25/2024 1:10 PM EST): Reports chronic, morning cough. Mild LEMON. He experiences wheezing whenever he has respiratory illness. He has also noted wheezing when he exerts himself or when its cold weather. Suspect underlying reactive airway disease Order PFTs. Coronary arteriosclerosis 07/20/2022 Assessment & Plan (05/13/2025 6:15 AM EDT): Current meds: statin, imdur, demarco/hydrochlorothiazide, b denice, asa Cardiology: [facility] Assessment & Plan (02/10/2025 1:44 PM EDT): Current meds: statin, imdur, demarco/hydrochlorothiazide, b denice, asa Cardiology: [facility] Assessment & Plan (05/23/2024 10:57 AM EDT): Non obs CAD on [facility] in 2014. On ASA, stain, imdur and Toprol Follows [facility] cardiology. Denies CP, SOB, palpitations. Assessment & Plan (01/25/2024 11:02 AM EST): Non obs CAD on [facility] in 2014. On ASA, stain, imdur and Toprol Follows [facility] cardiology. Denies CP, SOB, palpitations. Hyperlipidemia 07/20/2022 Assessment & Plan (02/10/2025 7:01 AM EDT): On statin therapy Check labs yearly and prn dose changes Assessment & Plan (11/07/2024 9:47 AM EST): Currently taking Atorvastatin 40mg Denies any myalgias. Continue current regimen. Assessment & Plan (07/23/2024 11:06 AM EDT): Atorvastatin 40mg Denies myalgias Continue Lipitor Assessment & Plan (02/21/2024 10:04 AM EDT): LDL less than 70, hx of HTN. T2 DM. C/w lipitor. Monitor for side effects. Assessment & Plan (01/25/2024 11:03 AM EST): On lipitor, check lipid panel. Solitary pulmonary nodule 07/20/2022 Overview (04/02/2025): Fu CT done 04/02/25 by Ryland Assessment & Plan (07/23/2024 12:14 PM EDT): Follows Pulmonology- Dr. Rust Assessment & Plan (05/23/2024 11:01 AM EDT): CT chest 03/20 --> 1 cm noncalcified right lower lobe pulmonary nodule. --> new 6.7 mm calcified left lung nodule -stable Former smoker. Refer to Pulm Assessment & Plan (02/21/2024 10:01 AM EDT): Stable 7 mm lung nodule noted on CXR. Last CT chest performed in [address] was recommended to document stability. He is a former smoker. Will order a CT scan to ensure stability, and no suspicious change in appearance. Assessment & Plan (01/25/2024 1:08 PM EST): Stable, unchanged. 7 mm pulm nodule left lower lobe Benign essential hypertension 11/13/2020 Assessment & Plan (05/13/2025 6:15 AM EDT): Please check blood pressure daily and record DASH diet Limit caffeine Take medication as directed Contact office if chest pain, pressure, dizziness, shortness of breath, swelling legs Recommend slow position changes Current meds: amlodipine, imdur, demarco/hydrochlorothiazide, b denice Assessment & Plan (02/10/2025 6:58 AM EDT): Please check blood pressure daily and record DASH diet Limit caffeine Take medication as directed Contact office if chest pain, pressure, dizziness, shortness of breath, swelling legs Recommend slow position changes Current meds: amlodipine, imdur, demarco/hydrochlorothiazide, b denice Assessment & Plan (07/23/2024 12:15 PM EDT): Follows Cardiology- Dr. Gao Isosorbide 60mg Lisinopril- hydrochlorothiazide 20-12.5mg Amlodipine 10mg Denies orthostatic changes Admits: Edema to BLE 2-3 times per week Continue current regimen Assessment & Plan (01/25/2024 1:09 PM EST): Decrease lisinopril-hydrochlorothiazide to once daily. Chronic GERD 11/13/2020 Assessment & Plan (02/10/2025 6:59 AM EDT): Recommendations: freq small meals, nothing to eat or drink at least 2 hours prior to bed, limit caffeine, alcohol, as well as spicy foods Meds to limit or avoid if possible: NSAIDS Elevate HOB if possible Current med: omeprazole Assessment & Plan (07/23/2024 12:19 PM EDT): Taking Omeprazole 20mg Has been taking for 20 years. Feels symptoms are well controlled at this time. Declines EGD at this time- will revisit at next OV. Continue with Prilosec. Assessment & Plan (01/25/2024 11:07 AM EST): On omeprazole. Symptoms controlled on it. Never had EGD. Using it for over 20 years now His symptoms recur anytime he has attempted to stop using it. Recommended EGD but patient would like to hold off on it. Type 2 diabetes mellitus wit hout complication, without long-term current use of insulin 11/13/2020 Assessment & Plan (05/13/2025 10:22 AM EDT): Check blood sugars daily, notify if <70 [...] diet low in carbohydrates, and simple sugars. Current meds: metformin, asa, statin, demarco/hydrochlorothiazide, ozempic A1c: 7.7% 05/13/25 7.3% 02/10/25 Assessment & Plan (02/10/2025 1:42 PM EDT): Check blood sugars daily, notify if <70 [...] diet low in carbohydrates, and simple sugars. Current meds: metformin, asa, statin, demarco/hydrochlorothiazide, ozempic A1c: 7.3 Assessment & Plan (11/07/2024 9:59 AM EST): Currently taking Metformin Semaglutide Has been tolerating [...] persistent hypoglycemia/hyperglycemia on home glucose monitoring noted. Assessment & Plan (07/23/2024 11:02 AM EDT): Most recent labs: hemoglobin A1C 6.3% Down [...] persistent hypoglycemia/hyperglycemia on home glucose monitoring noted. Assessment & Plan (05/23/2024 10:58 AM EDT): Patient is on metformin 850 mg once daily. Tolerating it w/o adverse effects Labs reviewed and discussed, A1C at goal Will start on Ozempic to help with weight loss, as morbidly obese. Patient counseled and educated on adverse effects, drug interactions and to reach out to office/pharmacy if questions or concerns related to new medications. Follow up in one month, if tolerating 0.5 mg, will increase to 1 mg next appointment/visit. A1C before next appt. Assessment & Plan (02/21/2024 10:03 AM EDT): Patient is on metformin 850 mg once daily. Tolerating it w/o adverse effects Labs reviewed and discussed, A1C at goal Assessment & Plan (01/25/2024 1:09 PM EST): Patient is on metformin 850 mg once daily. Tolerating it w/o adverse effects Check CBC, CMP, A1C, urine albumin/creatinine. Will consider GLP agonists to help with weight loss, and decide once blood work is back. Resolved Problems Problem Noted Date Diagnosed Date Resolved Date Type 2 diabetes mellitus wit hout complications 02/10/2025 05/13/2025 Skin mole 01/25/2024 05/23/2024 Assessment & Plan (01/25/2024 1:12 PM EST): Mole noted over his back. Irregular margin, raised, with color variation. No growth. Suspect melanoma - refer to derm Non-recurrent acute suppurat swapnil otitis media of both ears without spontaneous rupture of tympanic membranes 11/16/2023 01/25/2024 Assessment & Plan (11/16/2023 10:44 AM EST): Symptoms present x 4 weeks now. Presumably started off as viral URTI but definitely bacterial infection based on exam Will call in oral Augmentin, benzonatate as needed. PO prednisone along with Ventolin as wheezing noted on exam No prior hx of COPD/Asthma Will also order CXR to ensure he has not developed Pneumonia Patient educated on worrisome signs and symptoms and to seek care in ED if symptoms like worsening SOB, persistent fever, confusion develops. Acute bronchitis with wheezing 11/16/2023 01/25/2024 Dyslipidemia 11/13/2020 02/10/2025 Persistent depressive disorder 11/13/2020 02/10/2025 Assessment & Plan (01/25/2024 11:04 AM EST): On Paroxetine 40 mg. Has been using it for over 20 years now. Patient reports intermittent depression but overall symptoms well controlled. HTN (hypertension) 05/13/2013 Assessment & Plan (11/07/2024 9:47 AM EST): Currently taking amlodipine 10mg Isosorbide Lisinopril-hydrochlorothiazide Metoprolol Does not check BP at home; Denies orthostatic changes, dizziness, cough, shortness of breath, swelling in extremities. Continue current regimen. Given BP log, advised pt to record BP and bring log back with them to next visit. Assessment & Plan (05/23/2024 10:57 AM EDT): Previously his lisinopril-hydrochlorothiazide was switched to once daily as he reported intermittent dizziness in the morning but then he noticed increasing swelling in LE and started to use it q12. He is also on Amlodipine 10, Imdur 60 mg, Toprol 100 mg. BP at goal, denies feeling dizzy anymore. C/w lisinopril-hydrochlorothiazide q12. Assessment & Plan (02/21/2024 10:03 AM EDT): Last appointment his lisinopril-hydrochlorothiazide was switched to once daily as he reported intermittent dizziness in the morning. He is also on Amlodipine 10, Imdur 60 mg, Toprol 100 mg. Reviewed home BP, at goal. He reports his dizziness has improved. Will monitor for now. C/w same. Assessment & Plan (01/25/2024 11:00 AM EST): BP well controlled. On average less than 130/90. Tolerating Anti hypertensive w/o adverse effects. Patient encouraged to continue with home BP monitoring and call office if he experiences orthostatic symptoms or persistently elevated BP. On Amlodipine 10, Imdur 60 mg, Lisinopril-hydrochlorothiazide 20/12.5, Toprol 100 mg. Reports intermittent dizziness vaishali in the morning. He does not check his BP daily but he reports BP fluctuates. Uses all of his medications in the morning. He is using Lisinopril-hydrochlorothiazide twice a day Asked patient to use it once a day. Asked patient to use Lisinopril-hydrochlorothiazide at night only and take rest of his meds during day time. Patient asked to check his BP at home and maintain BP log and bring it to us next appointment so that we can adjust his medications. Sleep apnea 04/16/2012 02/10/2025 Assessment & Plan (02/21/2024 10:01 AM EDT): Repeat Sleep Study performed 02/17 - will get a new CPAP and mask. Following Sleep Clinic now. Assessment & Plan (01/25/2024 11:05 AM EST): Using CPAP. Patient had Sleep Study in 2004. Has not had a repeat sleep study. Will refer to Sleep Clinic. Encounters Date Type Department Care Team Description 05/19/2025 Refill [facility] [address] [place] [address] Lela Solorzano NP Hyperlipidemia, unspecified 05/13/2025 10:00 AM EDT [facility] [address] [place] [address] Lela Solorzano NP Encounter for subsequent annual wellness visit (AWV) in Medicare patient (Primary Dx); Type 2 diabetes mellitus with other specified complication (HCC); Obstructive sleep apnea syndrome; Benign essential hypertension ; Coronary arteriosclerosis ; Morbid (severe) obesity due to excess calories ([facility]); Type 2 diabetes mellitus without complication, without long-term current use of insulin (HCC); Primary hypertension ; Hyperlipidemia, unspecified ; Suspected chronic obstructive pulmonary disease based on initial evaluation ([facility]) 05/13/2025 Bamboo flowsheet [facility] [address] [place] [address] Lela Solorzano NP from Last 3 Months Immunizations Immunization Administration Dates Next Due Influenza, High-dose Seasona l, Quadrivalent, Preservative Free 09/28/2023 Influenza, Unspecified 09/28/2023,2020,08/27/2020,2019,11/18/2019,08/14/2018,09/15/2017,1 12/16/2014,08/05/2013,08/09/2012, 011,07/28/2011 Influenza, injectable, quadrivalent 11/18/2019 Influenza, injectable, quadr ivalent, preservative free 09/12/2021,08/26/2020 Influenza, seasonal, injectable 08/14/2018,09/15,10/16/2015 Influenza, seasonal, injecta ble, preservative free 08/05/2013,08/09/2012,08/12/2011 Zoster, Recombinant 04/27/2019, 9,09/11/2018,2017 Family History Medical History Relation Name Comments Cancer Brother Heart attack Brother Heart disease Brother Hypertension Brother Diabetes Mother Cancer Sister Hypertension Sister Relation Name Status Comments Brother Mother Sister Social History Tobacco Use Types Packs/Day Years Used Date Smoking Tobacco: Former Cigarettes 0.5 2 Passive Smoke Exposure: Past Smokeless Tobacco: Current Chew Tobacco Cessation:Ready to Q uit: Not Asked; Counseling Given: Not Answered Alcohol Use Standard Drinks/Week Comments Never 0 (1 standard drink = 0.6 oz pur e alcohol) B1300 Health Literacy Answer Date Recor ded How often do you need to hav e someone help you when you read instructions, pamphlets, or other written material from your doctor or pharmacy? Never 07/16/2024 Social Connection and Isolat ion Panel [NHANES] Answer Date Recorded In a typical week, how many times do you talk on the phone with family, friends, or neighbors? More than three times a week 07/16/2024 How often do you get togethe r with friends or relatives? Twice a week 07/16/2024 How often do you attend chur or spiritism services? Never 07/16/2024 Do you belong to any clubs o r organizations such as anabaptist groups, unions, fraternal or athletic groups, or school groups? No 07/16/2024 How often do you attend meet ings of the clubs or organizations you belong to? Never 07/16/2024 Are you , , di vorced, , never , or living with a partner? 07/16/2024 AUDIT-C Answer Date Recorded Q1: How often do you have a drink containing alcohol? 4 or more times a week 07/16/2024 Q2: How many drinks containi ng alcohol do you have on a typical day when you are drinking? 3 or 4 Q3: How often do you have si x or more drinks on one occasion? Weekly 07/16/2024 Overall Financial Resource Strain (CARDIA) Answe r Date Recorded How hard is it for you to pa y for the very basics like food, housing, medical care, and heating? Not very hard 07/16/2024 PHQ-2 Answer Date Recorded Patient Health Questionnaire-2 Score 0 05/13/2025 [facility] - Occupational Stress Questionnaire Answer Date Recorded Do you feel stress - tense, restless, nervous, or anxious, or unable to sleep at night because your mind is troubled all the time - these days? Only a little 07/16/2024 Exercise Vital Sign Answer Date Recorde d On average, how many days pe r week do you engage in moderate to strenuous exercise (like a brisk walk)? 3 days 07/16/2024 On average, how many minutes do you engage in exercise at this level? 20 min 07/16/2024 Hunger Vital Sign Answer Date Recorded Within the past 12 months, y ou worried that your food would run out before you got the money to buy more. Never true 07/16/20 Within the past 12 months, t he food you bought just didn't last and you didn't have money to get more. Never true 07/16/2024 PRAPARE - Transportation Answer Date Re corded In the past 12 months, has l ack of transportation kept you from medical appointments or from getting medications? No 06/28 In the past 12 months, has l ack of transportation kept you from meetings, work, or from getting things needed for daily living? No 07/16/2024 Housing Stability Vital Sign Answer Javad e Recorded In the last 12 months, was t here a time when you were not able to pay the mortgage or rent on time? No 07/16/2024 Number of Times Moved in the Last Year Not on fi le 07/16/2024 At any time in the past 12 m [facility], were you homeless or living in a senior care (including now)? No 07/16/2024 Sex and Gender Information Value Date Recorded Sex Assigned at Not on file Legal Sex Male 7:19 PM EDT Gender Identity Not on file Sexual Orientation Not on file Last Filed Vital Signs Vital Sign Reading Time Taken Comments Blood Pressure 116/82 05/13/2025 9:59 AM EDT Pulse 51 05/13/2025 9:59 AM EDT Temperature 35.9 C (96.7 F) 05/13/2025 9:59 AM EDT Respiratory Rate 20 05/13/2025 9:59 AM EDT Oxygen Saturation 94% 05/13/2025 9:59 AM EDT Inhaled Oxygen Concentration - - Weight 145 kg (319 lb 3.2 oz) 05/13/2025 9:59 AM EDT Height 182.9 cm (6') 11/07/2024 9:29 AM EST Body Mass Index 43.29 11/07/2024 9:29 AM EST Plan of Treatment Health Maintenance Due Date Last Done Comments CT Colonography 1957 FIT-DNA 1957 FIT 1957 FOBT 1957 Sigmoidoscopy 1957 Influenza Vaccine (#1) 2025 3, 09/28/2023, 09/12/2021, Additional history exists Diabetes: Hemoglobin A1C 11/12/2025 025, 02/10/2025, 02/01/2024, Additional history exists Pneumococcal Vaccine: 65+ Years (1 of 2 - PCV) 02/10/2026 Postponed from 1976 (Patient Refused) Diabetes: Urine Protein Screening 03/12/2026 03/12/2025, 02/01/2024, 07/12/2022, Additional history exists Medicare Annual Wellness (AWV) 05/13/2026 05/13/2025, 05/23/2024, 05/23/2024 Diabetes: Retinopathy Screening 05/27/2026 05/27/2024, 07/25/2023, 05/29/2023 Colonoscopy 05/29/2034 05/29/2024, 07/0 01/2024, 04/08/2014 Colorectal Cancer Screening 05/29/2034 Goals Goal Patient Goal Type Associated Problems Recent Progress Patient-Stated? Author Help patient manage antidepressant medication Care Plan Patient on antidepressant monitoring plan No Tammy Travis NP Procedures Procedure Name Priority Date/Time Associated Diagnosis Comments POCT GLYCOSYLATED HEMOGLOBIN (HGB A1C) Routine 05/13/2025 10:22 AM EDT Type 2 diabetes mellitus without complication, without long-term current use of insulin (HCC) DIABETIC RETINOPATHY SCREENING - OU - BOTH EYES Routine 05/27/2024 12:41 PM EDT from Last 3 Months or Most Recently Relevant to Health Maintenance Results * (ABNORMAL) POCT glycosylated hemoglobin (Hb A1C) docked device (05/13/2025 10:22 AM EDT) Hemoglobin A1C 7.7 Blood Venous blood specimen / Unknown 05/13/2025 10:22 AM EDT us Lela Solorzano LABEL PASTER POINT OF CARE TEST ENTER/EDIT O RDERABLES Final Result * Diabetic Retinopathy Screening - OU - Both Eyes (05/27/2024 12:41 PM EDT) Anatomical Region Laterality Modality Head Other Shaikh Kristina [facility] Final Result from Last 3 Months or Most Recently Relevant to Health Maintenance Additional Health Concerns Active Problems Noted Date Diagnosed Date Patient on antidepressant monitoring plan 2023 Insurance [employer] MEDICARE ADVANTAGE Care Teams Classifications Officer Cc/Cm Relationship Specialty Start Date End Date Rachid Henning MD PCP - General Family Medicine 07/23/24 Shaikh Acevedo MD [address] [place] [address] PCP - [employer] 10/27/23 Tammy Hardy NP Nurse Practitioner Family Medicine 07/01/24
--- OUTSIDE RECORDS SUMMARY | 2025-08-13 11:10 | XMS_ITS | Encounter Summary ---
Author Organization [employer] Address [facility] [id number] [address] [place] [address] Care Team Providers Care Dandy Tender Name Role Phone Rachid Henning MD Primary Care Provider [phone] Encounter Details Date Type Department Care Team (Late st Contact Info) Description 04/13/2021 Orders Only [facility] [address] [place] [address] Ref Prov, [place] [address] Social History Tobacco Use Types Packs/Day Years [...] Exposure Response Date Recorded In the last month, have you been in contact with someone who was confirmed or suspected to have Coronavirus / COVID-19? No / Unsure 04/13/2021 7:46 AM EDT documented as of this encounter Plan of Treatment Not on file documented as of this encounter Procedures Procedure Name Priority Date/Time Associated Diagnosis Comments ENDOSCOPY, COLON Routine 04/08/2014 documented in this encounter Results * Endoscopy, colon, diagnostic (04/08/2014) us Not In System Ref Prov GI PROCEDURE ORDERABLES F inal Result [facility] EXTERNAL NON-INTERFACED REF LAB [address] [place] [address] documented in this encounter Visit Diagnoses Not on filedocumented in this encounter Additional Health Concerns Assessment Noted Time PHQ-9 Depression Total Score: 0 01/11/20 21 8:00 AM EST documented as of this encounter Care Teams Dandy Tender Relationship Specialty Start Date End Date Rachid Henning MD PCP - General Family Medicine 04/03/23 documented as of this encounter
--- NOTE | 2025-08-13 11:11 | XR_ITS ---
The [address] [address] Patient Name: FUNMI JULIO MRN: [id number] date: 1955 Sex: M Assigned Patient Location: [facility] Current Patient Location: [facility] Accession/Order Number: [id number] Exam Date: 08/13/2025 11:14 Report Date: 08/13/2025 11:43 At the request of: PAWEL SORIA NP Procedure: XR lumbar spine 2-3V LUMBAR SPINE - 3 views COMPARISON: 05/01/2023 CLINICAL DATA: Chronic low back pain with radiation down the legs. No reported injury. AP, lateral lumbar and lumbosacral views were obtained. There is osteopenia. There are no developing compression fractures or displacement. The disc spaces are maintained. There is minor endplate spurring. Lower lumbar facet hypertrophy is seen. The SI joints are intact. No paraspinal soft tissue abnormalities are present. XR/XR lumbar spine 2-3V IMPRESSION: MILD DEGENERATIVE CHANGES. NO ACUTE BONY FINDINGS. Impression dictated by: Michelle Dutta M.D. 08/13/2025 11:43 AM Dictation Location: [employer] Electronically authenticated by: [id number] Y Date: 08/13/2025 11:43
--- OUTSIDE RECORDS SUMMARY | 2025-08-13 11:11 | XMS_ITS | Encounter Summary ---
Author Organization [facility] Address [address] [place] [address] Care Team Providers Care Early Breastfeeding Care Specialist Name Role Phone Shaikh МАРИНА Acevedo Primary Care Provider [phone] Tammy Hardy NP Unavailable [phone] Rachid Henning MD Primary Care Provider [phone] Shaikh МАРИНА Acevedo Unavailable [phone] Reason for Visit * Reason Comments Med Change Request Encounter Details Date Type Department Care Team (Late st Contact Info) Description 05/23/2024 Refill [facility] [address] [place] [address] Shaikh Acevedo MD [address] [place] [address] Type 2 diabetes mellitus without complication, without long-term current use of insulin (HCC) Social History Tobacco Use Types Packs/Day Years Used Date Smoking Tobacco: Former Cigarettes 0.5 2 Passive Smoke Exposure: Past Smokeless Tobacco: Current Chew Alcohol Use Standard Drinks/Week Comments Never 0 (1 standard drink = 0.6 oz pur e alcohol) PHQ-2 Answer Date Recorded Patient Health Questionnaire-2 Score 0 05/23/2024 Sex and Gender Information Value Date Recorded Sex Assigned at Not on file Legal Sex Male 7:19 PM EDT Gender Identity Not on file Sexual Orientation Not on file documented as of this encounter Functional Status * Over the past 2 weeks, how often have you been bothered by any of the following problems? Question Answer Date of Assessment Author Little interest or pleasure in doing things Not at all 05/23/2024 10:29 AM Kimberly Beyer MA Feeling down, depressed, or hopeless Not at all 05/23/2024 10:29 AM Kimberly Beyer MA Patient Health Questionnaire -2 Score 0 05/23/2024 10:29 AM Kimberly Beyer MA * Question Answer Date of Assessment Author Trouble falling or staying asleep, or sleeping too much Several days 05/23/2024 10:29 AM Shaikh Taylor MD Feeling tired or having little energy Several days 05/23/2024 10:29 AM Shaikh Taylor MD Poor appetite or overeating Several days 05/23/2024 10 :29 AM Shaikh Taylor MD Feeling bad about yourself - or that you are a failure or have let yourself or your family down Not at all 05/23/2024 10:29 AM Shaikh Taylor MD Trouble concentrating on things, such as reading the newspaper or watching television Not at all 05/23/2024 10:29 AM Shaikh Taylor MD Moving or speaking so slowly that other people could have noticed? Or the opposite - being so fidgety or restless that you have been moving around a lot more than usual. Not at all 05/23/2024 10:29 AM Shaikh Taylor MD Thoughts that you would be better off or hurting yourself in some way Not at all 05/23/2024 10:29 AM Shaikh Taylor MD Patient Health Questionnaire-9 Score 3 05/23/2024 10:29 AM Shaikh Taylor MD * How difficult have these problems made it for you to do your work, take care of things at home, or get along with other people? Answer Date of Assessment Author Not difficult at all 05/23/2024 10:29 AM Shaikh Argueta MD documented as of this encounter Miscellaneous Notes * Telephone Encounter - Shaikh Kristina MD - 05/23/2024 2:39 PM EDT Approving, but needs appt for additional refills. documented in this encounter Plan of Treatment Not on file documented as of this encounter Visit Diagnoses Diagnosis Type 2 diabetes mellitus without complication, without long-term current use of insulin (HCC) documented in this encounter Additional Health Concerns Assessment Noted Time PHQ-9 Depression Total Score: 3 05/23/20 10:29 AM EDT documented as of this encounter Care Teams Early Breastfeeding Care Specialist Relationship Specialty Start Date End Date Shaikh Acevedo MD [address] [place] [address] PCP - General Internal Medicine 01/25/24 06/30/24 Rachid Henning MD [address] [place] [address] PCP - General Family Medicine 07/23/24 Shaikh Acevedo MD [address] [place] [address] PCP - [employer] 10/27/23 Tammy Hardy NP [address] [place] [address] Nurse Practitioner Family Medicine 07/01/24 documented as of this encounter
--- OUTSIDE RECORDS SUMMARY | 2025-08-13 11:11 | XMS_ITS | Encounter Summary ---
Author Organization [employer] Address [id number] [place] [address] Care Team Providers Care Dimmer Board Operator Name Role Phone Rachid Henning MD Primary Care Provider [phone] Encounter Details Date Type Department Care Team (Late st Contact Info) Description 12/31/2020 Telephone [facility] Internal Medicine [address] [place] [address] Reginaldo Keene, NUCLEAR WEAPONS SPECIALIST-CAPSULE FILLING MACHINE OPERATOR [address] [place] [address] Social History Tobacco Use Types Packs/Day Years Used Date Smoking Tobacco: Former Cigarettes 1 6 Smokeless Tobacco: Never Alcohol Use Standard Drinks/Week Comments Yes 0 (1 standard drink = 0.6 oz pur e alcohol) Childcare Answer Date Recorded Childcare Unknown 11/10/2020 [...] have Coronavirus / COVID-19? No / Unsure 12/30/2020 7:54 AM EST documented as of this encounter Miscellaneous Notes * Telephone Encounter - Marie Huitron - 12/31/2020 8:30 AM EST ----- Message from SHAD Mcknight sent at 12/31/2020 8:25 AM EST ----- Lab work looks good. There were no concerning findings. We will discuss your results in detail at your appt on 01/11. * Telephone Encounter - Marie Huitron - 12/31/2020 8:30 AM EST Left a message to inform patient of lab results. documented in this encounter Plan of Treatment Not on file documented as of this encounter Visit Diagnoses Not on filedocumented in this encounter Care Teams Dimmer Board Operator Relationship Specialty Start Date End Date Rachid Henning MD PCP - General Family Medicine 04/03/23 documented as of this encounter
--- OUTSIDE RECORDS SUMMARY | 2025-08-13 11:11 | XMS_ITS | Patient Health Record ---
Author Organization [facility] [place] Address [address] [place] [address] Care Team Providers Care Sanforizer Name Role Phone Lela Solorzano CNP Primary Care Provider Unavail able Fracisco Morrison Unavailable [phone] Allergies Allergen (clinical drug ingredient) Drug/Non Drug Allergy documented on EMR Reaction Allergy Type Onset Date Status oxycodone Oxycodone hives Drug Allergy Active Results Component Value Reference Range Notes CT Chest w/o contrast Reviewed date:04/02/2025 10:07:53 AM Interpretation: Performing Lab: Notes/Report: CT chest wo con Reviewed date:04/02/2025 10:44:20 AM Interpretation: Performing Lab: Notes/Report: Source Facility: [place] [address] CT Scan Report Signed Patient: JAYSON PAUL MR#: [id number] : 1955 Acct:[id number] Age/Sex: 69 / M ADM Date: 04/02/25 Loc: CT Attending Dr: Fracisco Morrison D.O. Ordering Physician: Fracisco Morrison D.O. Date of Service: 04/02/25 Procedure(s): CT chest wo con Accession Number(s): [id number] cc: Lela Solorzano NP [place] [address] Patient Name: JAYSON PAUL MRN: [id number] date: 1955 Sex: M Assigned Patient Location: CT Current Patient Location: CT Accession/Order Number: [id number] Exam Date: 04/02/2025 09:52 Report Date: 04/02/2025 09:55 At the request of: FRACISCO MORRISON DO Procedure: CT chest wo con CT CHEST WITHOUT IV CONTRAST: CLINICAL HISTORY: Solitary Pulmonary Nodule COMPARISON: CT chest 03/06/2024 TECHNIQUE: Spiral images were obtained through the chest without IV contrast. This CT exam was performed using one or more following dose reduction techniques: Automated exposure control, adjustment of the mA and/or kV according to patient size, or use of iterative reconstruction technique. FINDINGS: Mediastinum:Thoracic aorta appears normal in caliber. Pulmonary trunk appears nondilated. No pericardial effusion. No lymphadenopathy. Partially calcified mediastinal and left hilar lymph nodes. The esophagus is grossly unremarkable Lungs:Bibasilar atelectasis. No consolidation pneumothorax or pleural effusion. Calcified granuloma left lower lobe. A granuloma right upper lobe. Previously identified 1 cm nodule involving the right lower lobe appears to represent an area of focal scarring or subsegmental atelectasis particularly on the sagittal reconstructions. No suspicious pulmonary nodule is seen. Abd:No acute findings. Liver and splenic granulomas. Soft tissues/Bones: No acute findings. Osseous structures demonstrate degenerative change. CT/CT chest wo con IMPRESSION: No suspicious pulmonary nodule seen on today's study. The previously identified 1 cm nodule appears to represent area of focal atelectasis or scarring. Impression dictated by: Savanah Dan Jr.OHumera 04/02/2025 9:55 AM Dictation Location: [place] [address] Electronically authenticated by: [id number] Y Date: 04/02/2025 09:55 Dictated By: John Sneed M.D. Signed By: 04/02/25 0957 DD/ TD/TT: Burglar Alarm Operator: Reason For Referral No Information Medications Medication SIG (Take, Route, Frequency, Duration) Notes Start Date End Date Status Lisinopril-hydroCHLOROthi azide 20-12.5 MG Oral; Duration: 90 Days Active metFORMIN HCl 850 MG TAKE 1 TABLET BY [facility] DAILY Oral; Duration: 90 Days Active Metoprolol Succinate ER 100 MG Oral; Duration: 90 Days Acti ve Omeprazole 20 MG Oral; Duration: 90 Days Active PARoxetine HCl 40 MG TAKE 1 TABLET BY [facility] DAILY Oral; Duration: 90 Days Active Albuterol Sulfate HFA 108 (90 Base) MCG/ACT Inhalation; Duration: 17 Days Active traMADol HCl 50 MG 1 tablet as needed Orally Once a day 06/25/2024 Active amLODIPine Besylate 10 MG TAKE 1 TABLET BY MOUTH DAILY Oral; Duration: 90 Days Active Ozempic (0.25 or 0.5 MG/DOSE) 2 MG/3ML Subcutaneous; Duration: 42 Days Not-Taking Aspirin 81 MG 1 tablet Orally Once a day Active Atorvastatin Calcium 40 MG TAKE 1 TABLET BY MOUTH AT BEDTIME Oral; Duration: 90 Days Active Fexofenadine HCl 180 MG 1 tablet Swallow whole with water; do not take with fruit juices. Orally Once a day Active Isosorbide Mononitrate ER 60 MG Oral; Duration: 90 Days Acti ve Immunizations Vaccine Route Administration Date Status Comme nts Flu, Fluzone High-Dose (2022 -2023) (10112) 65 yrs+ Unknown 09/28/2023 Administered SARS-COV-2 (COVID 19 Moderna - Booster 0.25mL) Unknown 10/23/2021 Administered ZOSTER (SHINGLES) VACCINE (HZV) Unknown 09/11/2018 Admi nistered Social History Tobacco Use: Social History Observation Description Date Details (start date - stop date) Former Smoker NA - NA Tobacco use other than smoking: Question Answer Notes Are you an other tobacco user? Yes C hew Tobacco Control (Standard) Question Answer Notes Tobacco use: Former smoker How long has it been since y ou last smoked? Greater than 10 years Additional Findings: Tobacco user Chews tobacco Additional Findings: Tobacco non-user Ex-heavy c igarette smoker (20-30/day) Problems Problem Type SNOMED Code ICD Code Onset Dates Problem Status W/U Status Risk Notes Problem Solitary pulmonary nodule (111237843) Solitary pulmonary nodule (R91.1) Active confirmed Problem Morbid obesity (108049405) Morbid obesity (E66.01) Active confirmed Problem Obstructive sleep apnea syndrome (97179956) ZENON (obstructive sleep apnea) (G47.33) Active confirmed Problem Diabetes mellitus type 2 (disorder) (67451879) DM2 (diabetes mellitus, type 2) (E11.9) Active confirmed Problem Ex-tobacco user (finding) (344230638) History of tobacco abuse (Z87.891) Active confirmed Problem Calcified granuloma of lung (521990069501365 00) 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1 ; Shortness of breath R06.02 ; Calcified granuloma of lung J84.10 ; Calcified lymph nodes I89.8 ; ZENON (obstructive sleep apnea) G47.33 ; DM2 (diabetes mellitus, type 2) E11.9 ; History of tobacco abuse Z87.891 and Morbid obesity E66.01 [facility] [address] [place] [address] 04/02/2025 Fracisco [facility] Assessments Encounter Date Diagnosis (ICD Code) Assessment Notes Treatment Notes Treatment Clinical Notes Section Notes 03/26/2025 Solitary pulmonary nodule (ICD-10 - R91.1) History from prior visit: 10mm RLL pulmonary nodule. This appears to be present as far back as 2011. The difficulty assessing this nodule is that imaging studies were performed at 3 different institutions and there are 3 different measurments: -10mm 03/06/2024 - [facility] -8mm 07/12/2022 - Prommanuel Pachecot -5mm 03/21/2012 - Holley Stewart (presumptive same location as above) The variation between the two most recent studies could be positional, but unclear if it could explain a 5mm difference. This would represent either scar/granuloma vs. an extremely slow growing adenocarcinoma-in- situ. My suspicion is for the former. Options reviewed with the patient last visit were PET, CT chest , and doing nothing. A [address] chest F/U was due at this time, but not completed - patient states no one contacted him to schedule it. I personally handed the patient the CT chest order with the contact information for him to call to schedule the CT. We will contact him with the results - if stable/unchanged, may consider repeating 1 year or no further testing... if abnormal, will need further evaluation such as PET. No planned F/U visit scheduled as of this time - further plan of care dependent on CT chest results. 03/26/2025 Shortness of breath (ICD-10 - R06.02) Still has LEMON, but patient states it is not often and he uses albuterol ~1x/month. Concerned patient may be downplaying his symptoms, but he replied that he feels okay and does not want to start a maintenance inhaler. Offered PFT, but he declined at this time. 03/26/2025 Calcified granuloma of lung (ICD-10 - J84.10) Present as far back as 03/21/2012. Consistent with old granulomatous disease. 03/26/2025 Calcified lymph nodes (ICD-10 - I89.8) Present as far back as 03/21/2012. Consistent with old granulomatous disease. 03/26/2025 ZENON (obstructive sleep apnea) (ICD-10 - G47.33) I am not managing this. 03/26/2025 DM2 (diabetes mellitus, type 2) (ICD-10 - E11.9) 03/26/2025 History of tobacco abuse (ICD-10 - Z87.891) Very brief smoking history - 1ppd x 2 years, quit decades ago. Does not meet LDCT criteria. 03/26/2025 Morbid obesity (ICD-10 - E66.01) Patient's weight is inducing a restrictive pulmonary physiology. Weight loss indicated: Decrease calories, increase activity. Plan Of Treatment No Information Insurance Providers Payer Name Payer Address Payer Phone Subscriber Number Group Number Insured Name Patient Relationship to Insured Coverage Start Date Coverage End Date [employer]ARE [address] [place] [address] [id number] Jayson Paul Self - patient is the insured Medical (General) History Medical History History ICD Code Solitary pulmonary nodule R91.1 Calcified granuloma of lung J84.10 Calcified lymph nodes I89.8 ZENON (obstructive sleep apnea) G47.33 History of tobacco abuse Z87.891 Dyslipidemia E78.5 DM2 (diabetes mellitus, type 2) E11.9 HTN (hypertension) I10 Morbid obesity E66.01 Surgical History Surgery Date(Month/Year) cardiac catheterization umbilical hernia repair tonsillectomy and adenoidectomy lithotripsy
--- OUTSIDE RECORDS SUMMARY | 2025-08-13 11:12 | XMS_ITS | Encounter Summary ---
Author Organization [facility] Address [address] [place] [address] Care Team Providers Care Geophysical Engineer Name Role Phone Shaikh МАРИНА Acevedo Primary Care Provider [phone] Tammy Hardy BOOK REVIEWER Unavailable [phone] Rachid Henning MD Primary Care Provider [phone] Shaikh МАРИНА Acevedo Unavailable [phone] Encounter Details Date Type Department Care Team (Late st Contact Info) Description 02/21/2024 Orders Only [facility] [address] [place] [address] Shaikh Acevedo MD [address] [place] [address] Social History Tobacco Use Types Packs/Day Years Used Date Smoking Tobacco: Former Cigarettes 0.5 2 Passive Smoke Exposure: Past Smokeless Tobacco: Current Chew Alcohol Use Standard Drinks/Week Comments Never 0 (1 standard drink = 0.6 oz pur e alcohol) PHQ-2 Answer Date Recorded Patient Health Questionnaire-2 Score 1 02/21/2024 Sex and Gender Information Value Date Recorded [...] Little interest or pleasure in doing things Several days 02/21/2024 9:27 AM EDT Kimberly Morgan M A Feeling down, depressed, or hopeless Not at all 02/21/2024 9:27 AM EDT Kimberly Morgan MA Patient Health Questionnaire-2 Score 1 02/21/2024 9:27 AM EDT Kimberly Morgan MA * If you checked off any problems on this questionnaire so far, Question Answer Date of Assessment Author How difficult have these problems made it for you to do your work, take care of things at home, or get along with other people? Somewhat difficult 02/21/2024 9:27 AM EDT Kimberly Morgan M A documented as of this encounter Plan of Treatment Not on file documented as of this encounter Procedures Procedure Name Priority Date/Time Associated Diagnosis Comments POLYSOMNOGRAPHY Routine 02/14/2024 9:04 AM EDT documented in this encounter Results * Polysomnography (02/14/2024 9:04 AM EDT) us Shaikh Kristina [facility] ORDERABLES Final R esult documented in this encounter Visit Diagnoses Not on filedocumented in this encounter Care Teams Geophysical Engineer Relationship Specialty Start Date End Date Shaikh Acevedo MD [address] [place] [address] PCP - General Internal Medicine 01/25/24 06/30/24 Rachid Henning MD [address] [place] [address] PCP - General Family Medicine 07/23/24 Shaikh Acevedo MD [address] [place] [address] PCP - [employer] 10/27/23 Tammy Hardy NP [address] [place] [address] Nurse Practitioner Family Medicine 07/01/24 documented as of this encounter
--- OUTSIDE RECORDS SUMMARY | 2025-08-13 11:12 | XMS_ITS | Encounter Summary ---
Author Organization [facility] Address [address] [place] [address] Care Team Providers Care Tree Doctor Name Role Phone Rachid Henning MD Primary Care Provider [phone] Rachid Henning MD Primary Care Provider [phone] Shaikh МАРИНА Acevedo Primary Care Provider [phone] Tammy Hardy CIVIL ENGINEERING TECHNICIAN Unavailable [phone] Rachid Henning MD Primary Care Provider [phone] Shaikh МАРИНА Acevedo Unavailable [phone] Encounter Details Date Type Department Care Team (Late st Contact Info) Description 01/11/2024 Clinisync Result Encounter [facility] External Department Unsolicited Shaikh Acevedo MD [address] [place] [address] Social History Tobacco Use Types Packs/Day Years [...] Date/Time Associated Diagnosis Comments XR CHEST 2V 01/11/2024 11:53 AM EST documented in this encounter Results * XR CHEST 2V (01/11/2024 11:53 AM EST) Anatomical Region Laterality Modality Other 01/11/2024 11:5 3 AM EST Narrative 01/11/2024 11:56 AM EST [address] [address] XRay Report Signed Patient: JAYSON PAUL MR#: [id number] : 1955 Acct:[id number] Age/Sex: 68 / M ADM Date: 01/11/24 Loc: RAD Attending Dr: Shaikh Kristina Diane Ordering Physician: Shaikh Roxi Acevedo Date of Service: 01/11/24 Procedure(s): XR chest 2V Accession Number(s): [id number] cc: Shaikh Roxi Acevedo; Rachid Henning M.D. [place] [address] Patient Name: JAYSON PAUL MRN: [id number] date: 1955 Sex: M Assigned Patient Location: [facility] Current Patient Location: [facility] Accession/Order Number: [id number] Exam Date: 01/11/2024 11:38 Report Date: 01/11/2024 11:53 At the request of: SHAIKH KRISTINA Procedure: XR chest 2V EXAM: XR chest 2V HISTORY: Abnormal Chest Xray R93.89 COMPARISON: 11/16/2023 TECHNIQUE: PA and lateral views of the chest. FINDINGS: The cardiomediastinal silhouette is normal. Improved mild atelectasis or infiltrate of the right mid lung field since prior exam. There is no pneumothorax. No pleural effusion is noted. The osseous structures are intact. XR/XR chest 2V IMPRESSION: Improved mild atelectasis or infiltrate of the right mid lung field since prior exam. 7 mm pulmonary nodule of the left lower lobe is unchanged. Electronically authenticated by: ORLANDO RIVERS Date: 01/11/2024 11:53 Dictated By: Orlando Rivers M.D. Signed By: 01/11/24 1156 DD/ 1153 TD/TT: Venetian Blind Worker: Procedure Note Radiology, Radiologist, - 01/31/2024 [facility] [place] [id number] XRay Report Signed Patient: JAYSON PAULMR#: [id number] : 1955cct:[id number] Age/Sex: 68 / MADM Date: 01/11/24 Loc: RAD Attending Dr: Shaikh Kristina Diane Ordering Physician: Shaikh Roxi Acevedo Date of Service: 01/11/24 Procedure(s): XR chest 2V Accession Number(s): [id number] cc: Shaikh Roxi Acevedo; Rachid Henning M.D. The [address] [address] Patient Name: JAYSON PAUL MRN: [id number] date: 1955 Sex: M Assigned Patient Location: [facility] Current Patient Location: [facility] Accession/Order Number: [id number] Exam Date: 01/11/2024 11:38 Report Date: 01/11/2024 11:53 At the request of: SHAIKH KRISTINA Procedure: XR chest 2V EXAM: XR chest 2V HISTORY: Abnormal Chest Xray R93.89 COMPARISON: 11/16/2023 TECHNIQUE: PA and lateral views of the chest. FINDINGS: The cardiomediastinal silhouette is normal. Improved mild atelectasis or infiltrate of the right mid lung field since prior exam. There is no pneumothorax. No pleural effusion is noted. The osseous structures are intact. XR/XR chest 2V IMPRESSION: Improved mild atelectasis or infiltrate of the right mid lung field since prior exam. 7 mm pulmonary nodule of the left lower lobe is unchanged. Electronically authenticated by: ORLANDO RIVERS Date: 01/11/2024 11:53 Dictated By: Orlando Rivers M.D. Signed By:01/11/24 1156 DD/ 52 TD/TT: Venetian Blind Worker: us Shaikh Kristina [facility] Final Result documented in this encounter Visit Diagnoses Not on filedocumented in this encounter Care Teams Tree Doctor Relationship Specialty Start Date End Date Rachid Henning MD PCP - General Family Medicine 06/08/23 01/11/24 Rachid Henning MD PCP - General Family Medicine 01/12/24 01/24/24 Shaikh Acevedo MD [address] [place] [address] PCP - General Internal Medicine 01/25/24 06/30/24 Rachid Henning MD PCP - General Family Medicine 07/23/24 Shaikh Acevedo MD [address] [place] [address] PCP - [employer] 10/27/23 Tammy Hardy NP [address] [place] [address] Nurse Practitioner Family Medicine 07/01/24 documented as of this encounter
--- OUTSIDE RECORDS SUMMARY | 2025-08-13 11:12 | XMS_ITS | Encounter Summary ---
Author Organization [facility] Address [address] [place] [address] Care Team Providers Care Research Technologist Name Role Phone Shaikh МАРИНА Acevedo Primary Care Provider [phone] Tammy Hardy HEAD OF DATA Unavailable [phone] Rachid Henning MD Primary Care Provider [phone] Shaikh МАРИНА Acevedo Unavailable [phone] Encounter Details Date Type Department Care Team (Late st Contact Info) Description 03/06/2024 Clinisync Result Encounter [facility] External Department Unsolicited Shaikh Acevedo MD [address] [place] [address] Social History Tobacco Use Types Packs/Day Years [...] Procedure Name Priority Date/Time Associated Diagnosis Comments CT CHEST WO CON 03/06/2024 9:48 AM EDT documented in this encounter Results * CT CHEST WO CON (03/06/2024 9:48 AM EDT) Anatomical Region Laterality Modality Other 03/06/2024 9:48 AM EDT Narrative 03/06/2024 9:[place] [address] CT Scan Report Signed Patient: JAYSON PAUL MR#: [id number] : 1955 Acct:[id number] Age/Sex: 68 / M ADM Date: 03/06/24 Loc: CT Attending Dr: Shaikh Kristina Diane Ordering Physician: Shaikh Roxi Acevedo Date of Service: 03/06/24 Procedure(s): CT chest wo con Accession Number(s): [id number] cc: Shaikh Roxi Acevedo [place] [address] Patient Name: JAYSON PAUL MRN: [id number] date: 1955 Sex: M Assigned Patient Location: CT Current Patient Location: CT Accession/Order Number: [id number] Exam Date: 03/06/2024 08:46 Report Date: 03/06/2024 09:48 At the request of: SHAIKH KRISTINA Procedure: CT chest wo con EXAMINATION: CT chest wo con HISTORY: Solitary Pulmonary Nodule R91.1 COMPARISON: 01/11/2024 TECHNIQUE: Multi-planar CT images were created with IV contrast. Axial, Coronal, and Sagittal images. Dose reduction techniques were achieved by using automated exposure control and/or adjustment of mA and/or kV according to patient size and/or use of iterative reconstruction technique. FINDINGS: LUNGS: Scattered subcentimeter calcified and noncalcified pulmonary nodules with the largest noncalcified nodule irregular margins measuring 1.0 x 0.6 cm axial image 62 just above the right hemidiaphragm. Additional calcified nodules,the largest in the superior segment of the left lower lobe measures 6.7 mm and corresponds to the abnormality on plain x-ray likely atelectasis PLEURA: No mass, effusion, or pneumothorax. VASCULATURE: No abnormality. LUIS: No mass or adenopathy. MEDIASTINUM: No mass or adenopathy. CARDIAC: No enlargement, pericardial thickening, or significant calcification. AORTA: No aneurysm or dissection. CHEST WALL: No mass or axillary adenopathy. BONES: No bone lesion or fracture. LIMITED ABDOMEN: No suspicious findings. Limited images of the upper abdomen. OTHER: Negative. CT/CT chest wo con IMPRESSION: 1 cm noncalcified right lower lobe pulmonary nodule. Consider PET/CT to evaluate metabolic status 6.7 mm calcified left lung nodule corresponding to the plain film findings Electronically authenticated by: ELDON LEACH Date: 03/06/2024 09:48 Dictated By: Eldon Leach M.D. Signed By: 03/06/24950 DD/ 7 TD/TT: Aircraft Charter Dispatcher: Procedure Note Radiology, Radiologist, MD - 03/06/2024 [place] [address] CT Scan Report Signed Patient: JAYSON PAULMR#: [id number] : 1955cct:[id number] Age/Sex: 68 / MADM Date: 03/06/24 Loc: CT Attending Dr: Shaikh Kristina Diane Ordering Physician: Shaikh Roxi Acevedo Date of Service: 03/06/24 Procedure(s): CT chest wo con Accession Number(s): [id number] cc: Shaikh Roxi Acevedo [facility] [place] [address] Patient Name: JAYSON PAUL MRN: [id number] date: 1955 Sex: M Assigned Patient Location: CT Current Patient Location: CT Accession/Order Number: [id number] Exam Date: 03/06/2024 08:46 Report Date: 03/06/2024 09:48 At the request of: SHAIKH KRISTINA Procedure: CT chest wo con EXAMINATION: CT chest wo con HISTORY: Solitary Pulmonary Nodule R91.1 COMPARISON: 01/11/2024 TECHNIQUE: Multi-planar CT images were created with IV contrast. Axial, Coronal, and Sagittal images. Dose reduction techniques were achieved byusing automated exposure control and/or adjustment of mA and/or kV according to patient size and/or use of iterative reconstruction technique. FINDINGS: LUNGS: Scattered subcentimeter calcified and noncalcified pulmonarynodules with the largest noncalcified nodule irregular margins measuring 1.0 x 0.6cm axial image 62 just above the right hemidiaphragm. Additional calcified nodules,the largest in the superior segment of the left lower lobemeasures 6.7 mm and corresponds to the abnormality on plain x-ray likely atelectasis PLEURA: No mass, effusion, or pneumothorax. VASCULATURE: No abnormality. LUIS: No mass or adenopathy. MEDIASTINUM: No mass or adenopathy. CARDIAC: No enlargement, pericardial thickening, or significantcalcification. AORTA: No aneurysm or dissection. CHEST WALL: No mass or axillary adenopathy. BONES: No bone lesion or fracture. LIMITED ABDOMEN: No suspicious findings. Limited images of the upperabdomen. OTHER: Negative. CT/CT chest wo con IMPRESSION: 1 cm noncalcified right lower lobe pulmonary nodule. Consider PET/CT to evaluate metabolic status 6.7 mm calcified left lung nodule corresponding to the plain film findings Electronically authenticated by: ELDON LEACH Date: 03/06/2024 09:48 Dictated By: Eldon Leach M.D. Signed By:03/06/24950 DD/ 7 TD/TT: Aircraft Charter Dispatcher: us Shaikh Kristina [facility] Final Result documented in this encounter Visit Diagnoses Not on filedocumented in this encounter Care Teams Research Technologist Relationship Specialty Start Date End Date Shaikh Acevedo MD [address] [place] [address] PCP - General Internal Medicine 01/25/24 06/30/24 Rachid Henning MD [address] [place] [address] PCP - General Family Medicine 07/23/24 Shaikh Acevedo MD [address] [place] [address] PCP - [employer] 10/27/23 Tammy Hardy NP [address] [place] [address] Nurse Practitioner Family Medicine 07/01/24 documented as of this encounter
--- OUTSIDE RECORDS SUMMARY | 2025-08-13 11:12 | XMS_ITS | Clinical Summary ---
Author Organization [facility] Address [address], [address] [place] [address] Care Team Providers Care Integration Project Manager Name Role Phone Marbella Ortiz MD Primary Care Provider Unavailable Allergies Active Allergy Reactions Criticality Noted Date Comments Oxycodone Hives,Itching 05/13/2013 Medications pravastatin (PRAVACHOL) 80 MG tablet Take 80 mg by mouth nightly Active paroxetine (PAXIL) 40 MG tablet Take 40 mg by mouth every morning. Active fexofenadine (CHERELLE ALLERGY) 180 MG tablet Take 180 mg by mouth daily. Active omeprazole (PRILOSEC) 20 MG capsule Take 20 mg by mouth nightly Active atorvastatin (LIPITOR) 40 MG tablet Take 40 mg by mouth nightly Active aspirin 81 MG tablet Take 81 mg by mouth daily Active metFORMIN (GLUCOPHAGE) 500 MG tablet Take 500 mg by mouth daily (with breakfast) Active lisinopril-hydr ochlorothiazide (PRINZIDE;ZESTO RETIC) 20-25 MG per tablet Take 1 tablet by mouth daily Active Coenzyme Q10 (CO Q-10) 200 MG CAPS Take 1 capsule by mouth daily Active acetaminophen (TYLENOL) 500 MG tablet Take 500 mg by mouth daily Takes 2 tablets in AM. Active Active Problems Problem Noted Date Diagnosed Date Rectal bleeding 03/18/2014 Anemia 03/18/2014 Constipation 03/18/2014 HTN (hypertension) 05/13/2013 Sleep apnea 04/16/2012 Lung nodule, Rt 04/16/2012 Immunizations Immunization Administration Dates Next Due Influenza Virus Vaccine 07/28/2011 Family History Medical History Relation Name Comments Diabetes Mother Heart Attack Mother Relation Name Status Comments Father Mother Social History Tobacco Use Types Packs/Day Years Used Date Smoking Tobacco: Former Cigarettes 1.5 4 0 05/13/1978 - 05/13/1982 Smokeless Tobacco: Current Snuff Alcohol Use Standard Drinks/Week Comments Yes 2 (1 standard drink = 0.6 oz pur e alcohol) Sex and Gender Information Value Date Recorded Sex Assigned at Not on file Legal Sex Male 9:22 AM EST Gender Identity Not on file Sexual Orientation Not on file Last Filed Vital Signs Vital Sign Reading Time Taken Comments Blood Pressure 132/68 06/20/2017 1:08 PM EDT Pulse 94 06/20/2017 1:08 PM EDT Temperature 36.2 C (97.1 F) 06/20/2017 1:08 PM EDT Respiratory Rate 20 06/20/2017 1:08 PM EDT Oxygen Saturation 94% 06/20/2017 1:08 PM EDT Inhaled Oxygen Concentration - - Weight 119.3 kg (263 lb) 06/20/2017 1:08 PM EDT Height 182.9 cm (6') 06/20/2017 1:08 PM EDT Body Mass Index 35.67 06/20/2017 1:08 PM EDT Plan of Treatment Not on file Medical Devices Implanted Type Area Technology Applications Consultant Device Identifier Shelf Expiration Date Model / Serial / Lot Patch Juve Ventralex St W/Strap Cir Med 6.4cm Implanted:Qty : 1 on 05/17/2017 by Dejah Toledo DO at [facility] Mesh N/A: [employer] 03/24/2019 [id number] / / [id number] Insurance Care Teams Integration Project Manager Relationship Specialty Start Date End Date Marbella Ortiz MD PCP - General 04/12/12
--- OUTSIDE RECORDS SUMMARY | 2025-08-13 11:12 | XMS_ITS | Encounter Summary ---
Author Organization [facility] Address [address] [place] [address] Care Team Providers Care College Advisor Name Role Phone Shaikh МАРИНА Acevedo Primary Care Provider [phone] Tammy Hardy PREFITTER DOORS Unavailable [phone] Rachid Henning MD Primary Care Provider [phone] Shaikh МАРИНА Acevedo Unavailable [phone] Encounter Details Date Type Department Care Team (Late st Contact Info) Description 04/17/2024 Abstract [facility] [address] [place] [address] Shaikh Acevedo MD [address] [place] [address] Social History Tobacco Use Types Packs/Day Years [...] on filedocumented in this encounter Care Teams College Advisor Relationship Specialty Start Date End Date Shaikh Acevedo MD [address] [place] [address] PCP - General Internal Medicine 01/25/24 06/30/24 Rachid Henning MD [address] [place] [address] PCP - General Family Medicine 07/23/24 Shaikh Acevedo MD [address] [place] [address] PCP - [employer] 10/27/23 Tammy Hardy NP [address] [place] [address] Nurse Practitioner Family Medicine 07/01/24 documented as of this encounter
--- OUTSIDE RECORDS SUMMARY | 2025-08-13 11:12 | XMS_ITS | Clinical Summary ---
Author Organization [facility] Address [id number] [place] [address] Care Team Providers Care Lunch Counter Manager Name Role Phone Rachid Henning MD Primary Care Provider [phone] Allergies Active Allergy Reactions Criticality Noted Date Comments Oxycodone Hives,Itching Low 05/13/2013 Medications aspirin 81 mg Take 81 mg by mouth daily. Active lisinopril-hydroC HLOROthiazide (PRINZIDE,ZESTORE TIC) 20-12.5 mg per tabletIndications :Essential hypertension Take 1 tablet by mouth in the morning and 1 tablet before bedtime. 180 tablet 3 2 Active metFORMIN (GLUCOPHAGE) 850 mg tabletIndications :Type 2 diabetes mellitus without complication, without long-term current use of insulin ([facility]) Take 1 tablet (850 mg total) by mouth in the morning. 90 tablet 3 2 Active atorvastatin (LIPITOR) 40 mg tabletIndications :Dyslipidemia Take 1 tablet (40 mg total) by mouth in the morning. 90 tablet 3 2 Active amLODIPine (NORVASC) 10 mg tabletIndications :Essential hypertension Take 1 tablet (10 mg total) by mouth in the morning. 90 tablet 3 2 Active metoprolol succinate XL (TOPROL XL) 50 mg 24 hr tabletIndications :Essential hypertension Take 1 tablet (50 mg total) by mouth in the morning. 90 tablet 3 2 Active PARoxetine (PAXIL) 40 mg tabletIndications :Persistent depressive disorder Take 1 tablet (40 mg total) by mouth in the morning. 90 tablet 3 2 Active omeprazole (PriLOSEC) 20 mg capsuleIndication s:Chronic GERD Take 1 capsule (20 mg total) by mouth in the morning. 90 capsule 3 2 Active isosorbide mononitrate (IMDUR) 60 mg 24 hr tablet Take 1 tablet (60 mg total) by mouth daily. 2 Active Active Problems Problem Noted Date Diagnosed Date Obesity (BMI 30-39.9) 01/11/2021 Essential hypertension 11/13/2020 Dyslipidemia 11/13/2020 Type 2 diabetes mellitus wit hout complication, without long-term current use of insulin 11/13/2020 Persistent depressive disorder 11/13/2020 Chronic GERD 11/13/2020 Right lower lobe pulmonary nodule 11/13/2020 Overview (07/09/2021): 2013: 5 mm 2020: 8 mm Immunizations Immunization Administration Dates Next Due COVID-19, mRNA, LNP-S, PF, 100mcg/0.5mL Dose 03/06/2021,02/06/2021 Influenza (IM) Preservative Free 08/05/2013,07/28,08/12/2011 Influenza, Im Trivalent Preservative 08/14/2018, 09/15/2017,10/16/2015 Influenza, Injectable, Quadrivalent 11/18/2019 Influenza, Injectable, quadr ivalent (PF) 09/12/2021,08/26/2020 Influenza, Unspecified 08/27/2020,07/28/2011 Zoster Vaccine Recombinant 04/27/2019,,09/11/2018,2017 Family History Medical History Relation Name Comments Heart disease Brother 1 Heart disease Brother 2 No Known Problems Father No Known Problems Maternal Grandfather No Known Problems Maternal Grandmother Diabetes Mother Heart disease Mother No Known Problems Paternal Grandfather No Known Problems Paternal Grandmother Thyroid cancer Sister Relation Name Status Comments Brother 1 Brother 2 Father Maternal Grandfather Maternal Grandmother Mother Paternal Grandfather Paternal Grandmother Sister Alive Social History Tobacco Use Types Packs/Day Years Used Date Smoking Tobacco: Former Cigarettes 1 6 1 5 - 1990 Smokeless Tobacco: Current Chew Tobacco Cessation:Ready to Q uit: Not Asked; Counseling Given: Not Answered Alcohol Use Standard Drinks/Week Comments Yes 0 [...] Sign Reading Time Taken Comments Blood Pressure 138/84 10/03/2022 9:05 AM EST Pulse 72 10/03/2022 8:29 AM EST Temperature 36.9 C (98.5 F) 07/13/2021 8:18 AM EDT Respiratory Rate 18 10/03/2022 8:29 AM EST Oxygen Saturation 96% 10/03/2022 8:29 AM EST Inhaled Oxygen Concentration - - Weight 129.3 kg (285 lb) 10/03/2022 8:29 AM EST Height 182.9 cm (6') 10/03/2022 8:29 AM EST Body Mass Index 38.65 10/03/2022 8:29 AM EST Plan of Treatment Health Maintenance Due Date Last Done Comments Diabetic Ophthalmology Exam 1955 Depression Screening 1969 Tobacco Screening 1969 Diabetic Foot Exam 1975 DTaP,Tdap and Td Vaccines (1 - Tdap) 1976 Fall Risk Screening 2022 Adult BMI Screening 10/03/2023 10/03/2022 Colonoscopy 04/08/2024 04/08/2014 COVID-19 Vaccine (2024-2 6 season) 2025 10/23/2021, 03/06/2021, 02/06/2021 Influenza Vaccine 07/28/2025 09/28/2023, , 08/27/2020, Additional history exists Statin Use: Diabetic 05/20/2026 05/20/2025 Zoster (Shingles) Vaccine Completed 2018, 11/27/2018, 09/11/2018, Additional history exists Medical Devices Not on file Insurance [id number] Care Teams Lunch Counter Manager Relationship Specialty Start Date End Date Rachid Henning MD PCP - General Family Medicine 04/03/23
--- OUTSIDE RECORDS SUMMARY | 2025-08-13 11:12 | XMS_ITS | Encounter Summary ---
Author Organization [facility] Address [address] [place] [address] Care Team Providers Care Aoc Aadc Operations Staff Officer Name Role Phone Tammy Hardy NP Unavailable [phone] Rachid Henning MD Primary Care Provider [phone] Shaikh МАРИНА Acevedo Unavailable [phone] Encounter Details Date Type Department Care Team (Late st Contact Info) Description 07/15/2024 Clinisync Result Encounter [facility] External Department Unsolicited Adam Lucero DO [address] [place] [address] Social History Tobacco Use Types Packs/Day Years [...] How often do you attend chur or rastafarian services? Never 07/16/2024 Do you belong to any clubs o r organizations such as hoahaoism groups, unions, fraternal or athletic groups, or [...] Recorded Patient Health Questionnaire-2 Score 0 05/23/2024 [facility] - Occupational Stress Questionnaire Answer Date Recorded [...] money to buy more. Never true 07/16/20 24 Within the past 12 months, t he [...] any time in the past 12 m [facility], were you homeless or living in a [facility] (including now)? No 07/16/2024 Sex and Gender Information Value Date Recorded Sex Assigned at Not on file Legal Sex Male 7:19 PM EDT Gender Identity Not on file Sexual Orientation Not on file documented as of this encounter Functional Status * Audit-C Score Answer Date of Assessment Author 8 07/16/2024 5:31 PM EDT Mychart, Generic * Q1: How often do you have a drink containing alcohol? Answer Date of Assessment Author 4 or more times a week 07/16/2024 5:31 PM EDT My chart, Generic * Q2: How many drinks containing alcohol do you have on a typical day when you are drinking? Answer Date of Assessment Author 3 or 4 07/16/2024 5:31 PM EDT Mychart, Generic * Q3: How often do you have six or more drinks on one occasion? Answer Date of Assessment Author Weekly 07/16/2024 5:31 PM EDT Mychart, Generic documented as of this encounter Plan of Treatment Not on file documented as of this encounter Procedures Procedure Name Priority Date/Time Associated Diagnosis Comments MRI HEAD/BRAIN WO/W CONTR 07/15/2024 6:35 PM EDT documented in this encounter Results * MRI HEAD/BRAIN WO/W CONTR (07/15/2024 6:35 PM EDT) Anatomical Region Laterality Modality Radiographic Patricia ging 07/15/2024 6:35 PM EDT Narrative 07/15/2024 6:37 PM EDT The [address] [address] Magnetic Resonance Report Signed Patient: JAYSON PAUL MR#: [id number] : 1955 Acct:[id number] Age/Sex: 68 / M ADM Date: 07/15/24 Loc: LAB Attending Dr: Adam Lucero D.O. Ordering Physician: Adam Lucero D.O. Date of Service: 07/15/24 Procedure(s): MR head/brain wo/w con Accession Number(s): [id number] cc: Shaikh Roxi Acevedo; Adam Lucero D.O. The [place] [address] Patient Name: JAYSON PAUL MRN: [facility]:[id number] date: 1955 Sex: M Assigned Patient Location: LAB Current Patient Location: LAB Accession/Order Number: [id number] Exam Date: 07/15/2024 09:01 Report Date: 07/15/2024 18:35 At the request of: ADAM LUCERO Procedure: MR head/brain wo/w con EXAM: MR head/brain wo/w con HISTORY: Mild Cognitive Impairment COMPARISON: None. TECHNIQUE: Multisequence MRI brain was performed with and without intravenous contrast. FINDINGS: There is no restricted diffusion to suggest acute infarct. There is no midline shift, mass effect, or abnormal extraaxial fluid collections. There are no abnormal parenchymal or leptomeningeal enhancement. The cortical sulci and ventricular system are within normal limits. There are a few nonspecific scattered foci of T2/FLAIR signal abnormality in the supratentorial white matter, likely reflect chronic microvascular ischemic changes. The major intracranial flow voids are visualized. The cerebellar tonsils are normal in position. The orbits demonstrate no suspicious enhancement or any focal lesions. The paranasal sinuses show no air-fluid level. The mastoid air cells are clear. The calvarium and extracranial soft tissues are unremarkable. MR/MR head/brain wo/w con IMPRESSION: No acute intracranial abnormality or abnormal intracranial enhancement. Mild chronic microvascular ischemic changes. Electronically authenticated by: GERARDO VASQUEZ Date: 07/15/2024 18:35 Dictated By: GERARDO VASQUEZ M.D. Signed By: 07/15/241836 DD/ 34 TD/TT: Cooker Tender: Procedure Note Radiology, Radiologist, - 07/15/2024 [place] [address] Magnetic Resonance Report Signed Patient: JAYSON PALUMR#: [id number] : 1955cct:[id number] Age/Sex: 68 / MADM Date: 07/15/24 Loc: LAB Attending Dr: Adam Lucero D.O. Ordering Physician: Adam Lucero D.O. Date of Service: 07/15/24 Procedure(s): MR head/brain wo/w con Accession Number(s): [id number] cc: Shaikh Roxi Acevedo; Adam Lucero D.O. [place] [address] Patient Name: JAYSON PAUL MRN: [id number] date: 1955 Sex: M Assigned Patient Location: LAB Current Patient Location: LAB Accession/Order Number: [id number] Exam Date: 07/15/2024 09:01 Report Date: 07/15/2024 18:35 At the request of: ADAM LUCERO Procedure: MR head/brain wo/w con EXAM: MR head/brain wo/w con HISTORY: Mild Cognitive Impairment COMPARISON: None. TECHNIQUE: Multisequence MRI brain was performed with and withoutintravenous contrast. FINDINGS: There is no restricted diffusion to suggest acute infarct. There is nomidline shift, mass effect, or abnormal extraaxial fluid collections. There are no abnormal parenchymal or leptomeningeal enhancement. Thecortical sulci and ventricular system are within normal limits. There are a few nonspecific scattered foci of T2/FLAIR signal abnormalityin the supratentorial white matter, likely reflect chronic microvascularischemic changes. The major intracranial flow voids are visualized. The cerebellar tonsilsare normal in position. The orbits demonstrate no suspicious enhancement or any focal lesions. The paranasal sinuses show no air-fluid level. The mastoid air cells areclear. The calvarium and extracranial soft tissues are unremarkable. MR/MR head/brain wo/w con IMPRESSION: No acute intracranial abnormality or abnormal intracranial enhancement. Mild chronic microvascular ischemic changes. Electronically authenticated by: GERARDO VASQUEZ Date: 07/15/2024 18:35 Dictated By: GERARDO VASQUEZ M.D. Signed By:07/15/241836 DD/ 34 TD/TT: Cooker Tender: Adam Lucero DO IMG XR PROCEDURES Final R esult documented in this encounter Visit Diagnoses Not on filedocumented in this encounter Additional Health Concerns Assessment Noted Time PHQ-9 Depression Total Score: 3 05/23/20 10:29 AM EDT documented as of this encounter Care Teams Aoc Aadc Operations Staff Officer Relationship Specialty Start Date End Date Rachid Henning MD PCP - General Family Medicine 07/23/24 Shaikh Acevedo MD [address] [place] [address] PCP - [employer] 10/27/23 Tammy Hardy NP Nurse Practitioner Family Medicine 07/01/24 documented as of this encounter
--- OUTSIDE RECORDS SUMMARY | 2025-08-13 11:12 | XMS_ITS | Encounter Summary ---
Author Organization [facility] Address [address] [place] [address] Care Team Providers Care Underwriting Manager Name Role Phone Rachid Henning MD Primary Care Provider [phone] Reason for Visit * Reason Onset Date Comments Med Refill 08/11/2025 Encounter Details Date Type Department Care Team (Late st Contact Info) Description 08/11/2025 Refill [facility] [address] [place] [id number] Patricia Brennan MA Benign hypertension without congestive heart failure Social History Tobacco Use Types Packs/Day Years Used Date Smoking Tobacco: Former Cigarettes Smokeless Tobacco: Current Chew Alcohol Use Standard Drinks/Week Comments Yes 0 (1 standard drink = 0.6 oz pur e alcohol) MODERATE UT Safety & Environment Answer Date Rec orded Fear of Current or Ex-Partner Not on file Emotionally Abused Not on file 01/18/2024 Physically Abused Not on file 01/18/2024 Sexually Abused Not on file 01/18/2024 Physically or Sexually Abused Not on file Sex and Gender Information Value Date Recorded Sex Assigned at Not on file Legal Sex Male 11:37 PM EDT Gender Identity Not on file Sexual Orientation Not on file documented as of this encounter Plan of Treatment Not on file documented as of this encounter Visit Diagnoses Diagnosis Benign hypertension without congestive heart failure documented in this encounter Care Teams Underwriting Manager Relationship Specialty Start Date End Date Rachid Henning MD [address] [place] [address] PCP - General 08/31/23 documented as of this encounter
--- OUTSIDE RECORDS SUMMARY | 2025-08-13 11:12 | XMS_ITS | Clinical Summary ---
Author Organization [facility] Address [address] [place] [address] Care Team Providers Care Sales Secretary Name Role Phone Rachid Henning MD Primary Care Provider [phone] Allergies Active Allergy Reactions Criticality Noted Date Comments Oxycodone 07/20/2022 Medications amLODIPine (Norvasc) 10 mg tablet Take 1 tablet by mouth in the morning. Active aspirin 81 mg chewable tablet Chew 81 mg in the morning. Active atorvastatin (Lipitor) 40 mg tablet Take 40 mg by mouth in the morning. Active lisinopriL-hydro chlorothiazide 20-12.5 mg tablet Take 1 tablet by mouth in the morning and at bedtime. Active metFORMIN (Glucophage) 850 mg tablet Take 1 tablet by mouth with breakfast and with evening meal. Active omeprazole (PriLOSEC) [address] capsule Take 1 capsule by mouth in the morning. Active PARoxetine (Paxil) 40 mg tablet Take 1 tablet by mouth in the morning. Active fexofenadine (Lamar) 180 mg tablet Take 1 tablet by mouth in the morning. Active isosorbide mononitrate ER (Imdur) 60 mg 24 hr tabletIndication s:Coronary artery disease involving diomede coronary artery of diomede heart without angina pectoris Take 1 tablet (60 mg) by mouth in the morning. 90 tablet 3 4 08/21/20 25 Active albuterol 90 mcg/actuation inhaler Inhale 2 puffs every 4 (four) hours if needed. 4 Active anastrozole (Arimidex) 1 mg chemo tablet Take 1 mg by mouth 1 (one) time per week Active Ozempic 1 mg/dose (4 mg/3 mL) pen injector Inject 1 mg under the skin in the morning. 4 Active testosterone undecanoate (Jatenzo) 237 mg capsule Take 237 mg by mouth. 5 Active spironolactone (Aldactone) 25 mg tabletIndication s:Primary hypertension,Nikhil ma of lower extremity Take 0.5 tablets (12.5 mg) by mouth in the morning. 45 tablet 3 5 03/14/20 26 Active metoprolol succinate XL (Toprol-XL) 100 mg 24 hr tabletIndication s:Benign hypertension without congestive heart failure Take 1 tablet (100 mg) by mouth in the morning. Do not crush or chew. 90 tablet 3 5 08/11/20 26 Active metoprolol succinate XL (Toprol-XL) 100 mg 24 hr tabletIndication s:Benign hypertension without congestive heart failure Take 1 tablet (100 mg) by mouth in the morning. Do not crush or chew. 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 Cerumen debris on tympanic membrane of both ears 07/23/2024 Mild cognitive impairment 05/23/2024 Suspected chronic obstructiv e pulmonary disease based on initial evaluation 01/25/2024 Acute sinusitis 07/20/2022 Anemia 07/20/2022 Benign essential hypertension 07/20/2022 Coronary arteriosclerosis 07/20/2022 Cough 07/20/2022 Depressive disorder 07/20/2022 Hyperlipidemia 07/20/2022 Hypertensive disorder 07/20/2022 Impaired fasting glucose 07/20/2022 Neck sprain 07/20/2022 Pain in joint involving ankle and foot Precordial pain 07/20/2022 Solitary pulmonary nodule 07/20/2022 Obesity (BMI 30-39.9) 01/11/2021 08/31/2023 Chronic GERD 11/13/2020 08/31/2023 Dyslipidemia 11/13/2020 08/31/2023 Type 2 diabetes mellitus wit hout complication, without long-term current use of insulin 11/13/2020 08/31/2023 Constipation 03/18/2014 08/31/2023 Rectal bleeding 03/18/2014 08/31/2023 Sleep apnea 04/16/2012 08/31/2023 Encounters Date Type Department Care Team Description 08/11/2025 Refill [facility] [place] [address] [place] [address] Patricia Brennan MA Benign hypertension without congestive heart failure from Last 3 Months Family History Medical History Relation Name Comments Hypertension Brother Diabetes Mother Heart attack Other Relation Name Status Comments Brother Father Mother Other Sister Alive Social History Tobacco Use Types Packs/Day Years Used Date Smoking Tobacco: Former Cigarettes Smokeless Tobacco: Current Chew Tobacco Cessation:Ready to [...] Sign Reading Time Taken Comments Blood Pressure 150/86 03/14/2025 9:17 AM EDT Pulse 83 03/14/2025 9:17 AM EDT Temperature - - Respiratory Rate 16 03/22/2024 12:50 PM EDT Oxygen Saturation 94% 03/14/2025 9:17 AM EDT Inhaled Oxygen Concentration - - Weight 142 kg (314 lb) 03/14/2025 9:17 AM EDT Height 182.9 cm (6') 03/14/2025 9:17 AM EDT Body Mass Index 42.59 03/14/2025 9:17 AM EDT Plan of Treatment Health Maintenance Due Date Last Done Comments CT Colonography 1955 Diabetes: Hemoglobin A1C 1955 FIT-DNA 1955 FIT 1955 FOBT 1955 Medicare Annual Wellness (AWV) 1955 Sigmoidoscopy 1955 Diabetes: Retinopathy Screening 1967 Depression Screening 1969 Pneumococcal Vaccine: 50+ Years (1 of 2 - PCV) 1976 Adult Tetanus 1979 Fall Risk Screening 2022 Diabetes: Urine Protein Screening 07/12/2023 07/12/2022 COVID-19 Vaccine ( season) 2025 10/23/2021, 03/06/2021, 02/06/2021 Influenza Vaccine (#1) 2025 , 09/12/2021, 08/27/2020, Additional history exists Colonoscopy 05/29/2034 05/29/2024, 04/08/2014 Colorectal Cancer Screening 05/29/2034 Zoster Vaccines Completed 04/27/2019, 11/2018, 09/11/2018, Additional history exists HIB Vaccines Aged Out No longer eligi ble based on patient's age to complete this topic HPV Vaccines Aged Out No longer eligi ble based on patient's age to complete this topic IPV Vaccines Aged Out No longer eligi ble based on patient's age to complete this topic Meningococcal B Vaccine Aged Out No l onger eligible based on patient's age to complete this topic Meningococcal Vaccine Aged Out No stefany manuel eligible based on patient's age to complete this topic Rotavirus Vaccines Aged Out No longer eligible based on patient's age to complete this topic Insurance [employer] MEDICARE ADVANTAGE Care Teams Sales Secretary Relationship Specialty Start Date End Date Rachid Henning MD [address] [place] [address] PCP - General 08/31/23
--- OUTSIDE RECORDS SUMMARY | 2025-08-13 11:12 | XMS_ITS | Encounter Summary ---
Author Organization [facility] Address [address] [place] [address] Care Team Providers Care Electron Gun Assembler Name Role Phone Shaikh МАРИНА Acevedo Primary Care Provider [phone] Tammy Hardy PRODUCTION ANALYST Unavailable [phone] Rachid Henning MD Primary Care Provider [phone] Shaikh МАРИНА Acevedo Unavailable [phone] Encounter Details Date Type Department Care Team (Late st Contact Info) Description 05/27/2024 Orders Only [facility] [address] [place] [address] Shaikh Acevedo MD [address] [place] [address] Social History Tobacco Use Types Packs/Day Years [...] Procedure Name Priority Date/Time Associated Diagnosis Comments DIABETIC RETINOPATHY SCREENING - OU - BOTH EYES Routine 05/27/2024 12:41 PM EDT documented in this encounter Results * Diabetic Retinopathy Screening - OU - Both Eyes (05/27/2024 12:41 PM EDT) Anatomical Region Laterality Modality Head Other us Shaikh Kristina [facility] [employer] Final Result documented in this encounter Visit Diagnoses Not on filedocumented in this encounter Additional Health Concerns Assessment Noted Time PHQ-9 Depression Total Score: 3 05/23/20 24 10:29 AM EDT documented as of this encounter Care Teams Electron Gun Assembler Relationship Specialty Start Date End Date Shaikh Acevedo MD [address] [place] [phone] PCP - General Internal Medicine 01/25/24 06/30/24 Rachid Henning MD [address] [place] [address] PCP - General Family Medicine 07/23/24 Shaikh Acevedo MD [address] [place] [address] PCP - [employer] 10/27/23 Tammy Hardy NP [address] [place] [phone] Nurse Practitioner Family Medicine 07/01/24 documented as of this encounter
--- OUTSIDE RECORDS SUMMARY | 2025-08-13 11:12 | XMS_ITS | Encounter Summary ---
Author Organization [facility] Address [address] [place] [address] Care Team Providers Care Core Driller Name Role Phone Reginaldo Keene NP Primary Care Provider Rachid Henning MD Primary Care Provider [phone] Reason for Visit * Reason Comments Med Refill Encounter Details Date Type Department Care Team (Late st Contact Info) Description 02/14/2023 Refill [facility] [address] [place] [address] Sofya Tong, [employer] [address] [place] [address] Chest pain, unspecified type Social History Tobacco Use Types Packs/Day Years Used Date Smoking Tobacco: Never Smokeless Tobacco: Current Alcohol Use Standard Drinks/Week Comments Yes 0 (1 standard drink = 0.6 oz pur e alcohol) MODERATE Sex and Gender Information Value Date Recorded Sex Assigned at Not on file Legal Sex Male 11:37 PM EDT Gender Identity Not on file Sexual Orientation Not on file documented as of this encounter Plan of Treatment Not on file documented as of this encounter Visit Diagnoses Diagnosis Chest pain, unspecified type documented in this encounter Care Teams Core Driller Relationship Specialty Start Date End Date Reginaldo Keene NP [address] [facility] [address] PCP - General 09/12/22 08/30/23 Rachid Henning MD [address] [place] [address] PCP - General 08/31/23 documented as of this encounter
--- OUTSIDE RECORDS SUMMARY | 2025-08-13 11:13 | XMS_ITS | CCD ---
Author Organization [facility] CliniSymn Care Team Providers Care Blood And Plasma Laboratory Assistant Name Role Phone SADIA, MARIANELA Admitting Unavailable [...] MISC, DR CAICEDO Primary Care Unavailable SHAIKH ACEVEDO Primary Care Physician ANTONY, MS. CHIOMA BADILLO Primary Care P bradensician Rachid Barillas MD Unavailable Antony CFO, Chioma Unavailable Rachid Barillas MD Primary Care Provider Antony CFO, Chioma Unavailable Shaikh Acevedo MD Unavailable ANTONY [facility] Care UnavailTania Lawrence Admitting Unavailable Tania Mariscal Attending Unavailable Tania Mariscal Admitting Unavailable Tania Mariscal [facility] UnavailFunmi Soler Attending Unavailable RACHID BARILLAS Referring Unavailable Funmi RESENDIZ Attending Unavailable Tania Mariscal Attending [facility]available [facility] UnavailTania Lawrence [facility] Un[facility] Un[facility]ail[facility] Attending Unavailable LAZARA HARDYTANY [facility] UnavailTania Lawrence Attending Un[facility] Unavailviktor HARDY, CHIOMA Referring UnavailERWIN Fregoso Attending Unavailable Tania Mariscal Attending Unavailable [facility] UnavailRONDA Honeycutt Attending Unavailable LELA SOLORZANO Attending Unavailable LELA SOLORZANO Attending Unavailable SHAIKH ACEVEDO Attending Unavailable TANIA LUCERO Attending Unavailable CHIOMA HARDY Attending UnavailDESHAWN Braxton Attending Unavailable TANIA LUCERO Referring Unavailable TANIA LUCERO Attending Unavailable CHIOMA HARDY Attending Unavailviktor [facility] NON STAFF Primary Care Provider UnavailPerri Landa DO Attending Provider [phone] Lela Savage Primary Care Provider Lela Savage Attending Provider [phone] Allergies Allergy Classification Reported Allergen(s) Allergy Type Date of Onset Reaction(s) Facility (1 source) oxyCODONE Drug Allergy 2 [facility] Repository (20 sources) oxyCODONE; Translations: [oxycodone] Drug Allergy 2 Dyspnea (finding), Weal (disorder), Hives [facility] Medications Current Medications Medication Drug Class(es) Dates Sig (Normalized) Sig (Original) 0.25 MG, 0.5 MG Dose 3 ML semaglutide 0.68 MG/ML Pen Injector [Ozempic] (3 sources) Start: 08-28-2024 inject 0.5 mg by subcutaneous injection every week Ozempic 2 mg/3 mL (0.25 mg or 0.5 mg dose) subcutaneous solution 0.5 mg, SubCutaneous, qWeek Start Date: 08/28/24 Status: Ordered Repeat number: 1 Start: 08-28-2024 inject 0.5 mg by sub cutaneous injection every week Ozempic 2 mg/3 mL (0.25 mg or 0.5 mg dose) subcutaneous solution 0.5 mg, SubCutaneous, qWeek Start Date: 08/28/24 Status: Ordered [id number] 200 actuat albuterol 0.09 mg/actuat metered dose inhaler (20 sources) beta2-Adrenergic Agonist Start: 06-25-2025 Albut cathleen Sulfate 90 mcg/actuation HFA aerosol inhaler Active 1 INH INHALATION Every 6 hours June 25, 2025 12:00am Complies with drug therapy Start: 11-16-2023 End: 12-07-2024 take 2 puff(s) by inhalation every four hours for wheezing albuterol HFA (Ventolin HFA) 90 mcg/act inhaler Indications: Suspected chronic obstructive pulmonary disease based on initial evaluation ([facility]) Inhale 2 puffs every 4 (four) hours if needed for wheezing 18 g 11/07/2024 Active Albuterol (Eqv-Ventolin HFA) 90 mcg/inh inhalation aerosol (3 sources) Start: 08-28-2024 take 2 puff(s) by inhalation every four hours Albuterol (Eqv-Ventolin HFA) 90 mcg/inh inhalation aerosol 2 puff(s), Inhalation, q4hr Start Date: 08/28/24 Status: Ordered Repeat number: 1 Start: 08-28-2024 take 2 puff(s) by in halation every four hours Albuterol (Eqv-Ventolin HFA) 90 mcg/inh inhalation aerosol 2 puff(s), Inhalation, q4hr Start Date: 08/28/24 Status: Ordered amLODIPine 10 mg oral tablet (20 sources) Dihydropyridine Calcium Channel Denice Start: 06-25-2025 take 1 tablet by mouth once daily Amlodipine 10 mg tablet Active 10 MG PO Daily June 25, 2025 12:00am Complies with drug therapy Start: 03-20-2024 End: 05-06-2025 take 1 tablet by mouth once daily amLODIPine (Norvasc) 10 MG tablet Indications: Primary hypertension Take 1 tablet (10 mg) by mouth Daily 90 tablet 1 11/07/2024 Active aspirin 81 mg oral tablet (20 sources) Platelet Aggregation Inhibitor, Nonsteroidal Anti-inflammatory Drug Start: 06-25-2025 take 1 tablet by mouth once daily Aspirin 81 mg tablet Active 81 MG PO Daily June 25, 2025 12:00am Complies with drug therapy Start: 03-20-2024 End: 11-07-2024 ASPIRIN 81 MG chewable table t Indications: Primary hypertension Chew 1 tablet (81 mg) Daily 90 tablet 2 11/07/2024 Active atorvastatin 40 mg oral tablet (20 sources) HMG-CoA Reductase Inhibitor Start: 05-20-2024 End: 08-18-2025 take 1 tablet by mouth once daily Atorvastatin 40 mg tablet Active 40 MG PO Daily June 25, 2025 12:00am Complies with drug therapy carbamide peroxide 65 mg/ml otic solution (2 sources) Start: 07-23-2024 End: 07-27-2024 carbamide peroxide (Debrox) 6.5 % otic solution Indications: Cerumen debris on tympanic membrane of both ears Administer 3-5 drops into affected ear(s) in the morning and 3-5 drops before bedtime. Do all this for 4 days. 15 mL 07/23/2024 07/27/2024 Active Cpap (Continuous Positive Airway Pressure) unit (1 source) Start: 06-25-2025 Cpap (Continuo us Positive Airway Pressure) unit Active 0 .Route 1 June 25, 2025 12:00am New mask and supplies x 1 year, Dx ZENON Patient would like the ramp turned off fexofenadine hydrochloride 180 mg oral tablet (20 sources) Histamine-1 Receptor Antagonist Start: 06-25-2025 take 1 tablet by mouth once daily Fexofenadine 180 mg tablet Active 180 MG PO Daily June 25, 2025 12:00am Complies with drug therapy Start: 08-28-2024 End: 11-07-2024 take 1 tablet by mouth once daily fexofenadine (Lamar Allergy) 180 MG tablet Indications: Suspected chronic obstructive pulmonary disease based on initial evaluation ([facility]) Take 1 tablet (180 mg) by mouth Daily 90 tablet 11/07/2024 Active take 1 tablet by gareth th in the morning fexofenadine (Lamar Allergy) 180 MG tablet Take 1 tablet by mouth in the morning. Active hydroCHLOROthiazide 12.5 mg / lisinopril 20 mg oral tablet (20 sources) Thiazide Diuretic, Angiotensin Converting Enzyme Inhibitor Start: 06-25-2025 take 1 tablet by mouth once daily Lisinopril-Hydrochlorothiazide 20-12.5 mg tablet Active 1 TAB PO Daily June 25, 2025 12:00am Complies with drug therapy Start: 05-20-2024 End: 05-06-2025 take 1 tablet by mouth once daily lisinopril-hydroCHLOROthiazide 20-12.5 M G tablet Indications: Essential (primary) hypertension Take 1 tablet by mouth Daily 90 tablet 1 11/07/2024 Active Start: 03-20-2024 take 1 tablet by gareth th twice daily hydrochlorothiazide-lisinopril 12.5 mg-2 0 mg Tab 1 tab(s), Oral, BID, Refill(s) 0 Start Date: 03/20/24 Status: Ordered Repeat number: 1 24 hr isosorbide mononitrate 60 mg extended release oral tablet (20 sources) Nitrate Vasodilator Start: 06-25-2025 take 1 tablet by mouth every twenty-four hours Isosorbide Mononitrate 60 mg tablet extended release 24 hr Active MG PO June 25, 2025 12:00am Complies with drug therapy Start: 03-20-2024 End: 11-07-2024 take 1 tablet by mouth once daily isosorbide mononitrate ER (Imdur) 60 MG 24 hr tablet Indications: Primary hypertension Take 1 tablet (60 mg) by mouth Daily 90 tablet 11/07/2024 Active metFORMIN hydrochloride 850 mg oral tablet (20 sources) Biguanide Start: 08-10-2025 take 1 tablet by mouth twice daily Metformin 850 mg tablet Active 850 MG PO Twice daily August 10, 2025 12:00am Complies with drug therapy Start: 06-25-2025 End: 08-10-2025 take 1 tablet by mouth once daily Metformin 850 mg tablet Discontinued 850 MG PO Daily June 25, 2025 12:00am August 10, 2025 7:48pm Start: 03-20-2024 End: 05-11-2025 take 1 tablet by mouth in the morning metFORMIN (Glucophage) 850 MG tablet Indications: Type 2 diabetes mellitus without complication, without long-term current use of insulin (HCC) Take 1 tablet (850 mg) by mouth in the morning and 1 tablet (850 mg) in the evening. Take with meals. 180 tablet 02/10/2025 Active 24 hr metoprolol succinate 100 mg extended release oral tablet (20 sources) beta-Adrenergic Denice Start: 03-20-2024 take 1 tablet by mouth once daily metoprolol 100 mg ER Tab 100 mg = 1 tab(s), Oral, Daily, Refills(s) 0 Start Date: 03/20/24 Status: Ordered Repeat number: 1 Start: 08-31-2023 End: 01-15-2026 take 1 tablet by mouth every twenty-four hours Metoprolol Succinate 100 mg tablet extended release 24 hr Active MG PO June 25, 2025 12:00am Complies with drug therapy omeprazole 20 mg delayed release oral capsule (20 sources) Proton Pump Inhibitor Start: 03-20-2024 End: 11-07-2025 take 1 capsule by mouth once daily Omeprazole 20 mg capsule,delayed release(DR/EC) Active 20 MG PO Daily June 25, 2025 12:00am Complies with drug therapy Ozempic, 1 MG/DOSE, 4 MG/3ML solution pen-injector (1 source) Start: 11-07-2024 inject 1 mg by subcutaneous injection every week Ozempic, 1 MG/DOSE, 4 MG/3ML solution pen-injector Indications: Type 2 diabetes mellitus without complication, without long-term current use of insulin (CMS/[facility]) INJECT 1mg SUBCUTANEOUSLY (UNDER THE SKIN) EVERY WEEK 3 mL 12 11/07/2024 Active PARoxetine hydrochloride 40 mg oral tablet (20 sources) Serotonin Reuptake Inhibitor Start: 03-20-2024 End: 11-07-2025 take 1 tablet by mouth once Paroxetine Hcl 40 mg tablet Active 40 MG PO Once June 25, 2025 12:00am Complies with drug therapy semaglutide (Ozempic, 1 MG/DOSE,) 4 MG/3ML solution pen-injector (4 sources) Start: 11-07-2024 inject 1 mg by subcutaneous injection every week semaglutide (Ozempic, 1 MG/DOSE,) 4 MG/3ML solution pen-injector Inject 1 mg under the skin 1 (one) time per week 11/07/2024 Active Semaglutide,0.25 or 0.5MG/DOS, (Ozempic, 0.25 or [...] Active testosterone undecanoate 237 mg oral capsule (8 sources) Androgen Start: 12-18-2024 End: 05-13-2025 Testosterone Undecanoate (Jatenzo) 237 MG capsule Take 237 mg by mouth 12/18/2024 05/13/2025 Discontinued (Therapy completed) Completed/Discontinued Medications Medication Drug Class(es) Dates Sig (Normalized) Sig (Original) anastrozole 1 mg oral tablet (8 sources) Aromatase Inhibitor Start: 06-25-2025 End: 08-13-2025 take 1 tablet by mouth once daily Anastrozole 1 mg tablet Discontinued 1 MG PO Daily June 25, 2025 12:00am August 13, 2025 10:00am Start: 12-18-2024 End: 06-16-2025 take 1 tablet by mouth every week anastrozole 1 mg Tab 1 mg = 1 tab(s), Oral, qWeek, X 90 day(s), # 13 tab(s), Refills(s) 1, Pharmacy: [id number], 182, cm, 12/18/24 11:48:00 EST, Height/Length Dosing, 139, kg, 12/18/24 11:48:00 EST, Weight Dosing Start Date: 12/18/24 Stop Date: 06/16/25 Status: Ordered Quantity: 13.0 Unit: tab(s) Repeat number: 2 Ozempic, 0.25 or 0.5 MG/DOSE , 2 MG/3ML solution pen-injector (9 sources) Start: 05-23-2024 End: 08-21-2024 Ozempic, 0.25 or 0.5 MG/DOSE , 2 MG/3ML solution pen-injector Indications: Type 2 [...] time per week 2 each 11/07/2024 Active Semaglutide (2 sources) Start: 06-25-2025 End: 08-13-2025 inject 1 mg by subcutaneous injection every week Semaglutide (Ozempic) 1 mg/dose (4 mg/3 mL) pen injector Discontinued 1 MG SUBCUT every week June 25, 2025 12:00am August 13, 2025 10:01am Start: 06-25-2025 inject 1 mg by subcu taneous injection every week Semaglutide (Ozempic) 1 mg/dose (4 mg/3 mL) pen injector Active 1 MG SUBCUT every week June 25, 2025 12:00am Complies with drug therapy spironolactone 25 mg oral tablet (7 sources) Aldosterone Antagonist Start: 06-25-2025 End: 08-10-2025 take 1 tablet by mouth once daily Spironolactone 25 mg tablet Discontinued 25 MG PO Daily June 25, 2025 12:00am August 10, 2025 7:49pm Start: 03-14-2025 End: 03-14-2026 Spironolactone 25 mg tablet Active 12.5 MG PO Daily August 10, 2025 12:00am Complies with drug therapy Problems Active Problems Problem Classification Problem Date Documented Date Episodic/Chronic Abdominal hernia (8 sources) Umbilical hernia; Translations: [Umbilical hernia without obstruction or gangrene] Onset: 03-11-2025 08-28-2024 Episodic Alcohol-related disorders (4 sources) History of alcohol abuse; Translations: [Alcohol abuse, in remission] 07-30-2024 Chronic Chronic obstructive pulmonary disease and bronchiectasis (20 sources) Suspected respiratory disease; Translations: [Chronic obstructive pulmonary disease, unspecified] Onset: 01-25-2024 01-25-2024 Chronic Coronary atherosclerosis and other heart disease (20 sources) Atherosclerotic heart disease of [place] coronary artery without angina pectoris; Translations: [Coronary arteriosclerosis] Onset: 01-12-2022 Chronic Deficiency and other anemia (5 sources) Anemia 03-20-2024 Episodic Diabetes mellitus with complications (6 sources) Type 2 diabetes mellitus; Translations: [Type 2 diabetes mellitus with other specified complication] Onset: 05-13-2025 05-13-2025 Chronic Diabetes mellitus without complication (20 sources) Diabetes mellitus; Translations: [Type 2 diabetes mellitus] Onset: 11-13-2020 Resolved: 05-13-2025 03-20-2024 Chronic Disorders of lipid metabolism (20 sources) Dyslipidemia; Translations: [Hyperlipidemia] Onset: 11-13-2020 Resolved: 02-10-2025 03-20-2024 Chronic Esophageal disorders (20 sources) Gastroesophageal reflux disease; Translations: [Gastro-esophageal reflux disease without esophagitis] Onset: 11-13-2020 03-20-2024 Chronic Essential hypertension (20 sources) Benign essential hypertension; Translations: [Hypertensive disorder] Onset: 05-13-2013 Resolved: 02-10-2025 03-20-2024 Chronic Mood disorders (20 sources) Depressive disorder; Translations: [Dysthymic disorder] Onset: 11-13-2020 Resolved: 02-10-2025 03-20-2024 Chronic Nonspecific chest pain (4 sources) Chest pain; Translations: [Chest pain, unspecified] Onset: 03-11-2025 05-13-2025 Episodic Other diseases of veins and lymphatics (9 sources) Calcified lymph nodes; Translations: [Other specified noninfective disorders of lymphatic vessels and lymph nodes] Onset: 02-10-2025 02-10-2025 Chronic Other endocrine disorders (1 source) Testicular hypofunction; Translations: [Testicular hypofunction] Onset: 12-18-2024 Chronic Other endocrine disorders (11 sources) Male hypogonadism; Translations: [Testicular hypofunction] Onset: 02-10-2025 12-18-2024 Chronic Other hereditary and degenerative nervous system conditions (20 sources) Impaired cognition; Translations: [Mild cognitive impairment, so stated] Onset: 05-23-2024 05-23-2024 Chronic Other lower respiratory disease (9 sources) Fibrosis of lung; Translations: [Pulmonary fibrosis, unspecified] Onset: 02-10-2025 02-10-2025 Chronic Other lower respiratory disease (9 sources) Calcified granuloma of lung; Translations: [Other disorders of lung] Onset: 02-10-2025 02-10-2025 Episodic Other lower respiratory disease (2 sources) Shortness of breath; Translations: [Shortness of breath] Onset: 03-14-2025 Episodic Other lower respiratory disease (1 source) Snoring; Translations: [Snoring] 06-25-2025 Episodic Other male genital disorders (14 sources) Male erectile dysfunction, unspecified; Translations: [Erectile dysfunction] Onset: 08-28-2024 Chronic Other male genital disorders (20 sources) Acquired buried penis; 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] Onset: 07-23-2024 Chronic Other nervous system disorders (2 sources) Impaired cognition; Translations: [Other symptoms and signs involving cognitive functions and awareness] 09-04-2024 Episodic Other nutritional; endocrine; and metabolic disorders (3 sources) Morbid obesity; Translations: [Morbid (severe) obesity due to excess calories] Onset: 04-16-2024 Chronic Other nutritional; endocrine; and metabolic disorders (20 sources) Body mass index 40+ - severely obese; Translations: [Body mass index (BMI) 40.0-44.9, adult] Onset: 05-23-2024 04-16-2024 Chronic Other nutritional; endocrine; and metabolic disorders (5 sources) Obese class III 03-20-2024 Chronic Other nutritional; endocrine; and metabolic disorders (10 sources) Obesity caused by energy imbalance; Translations: [Morbid (severe) obesity due to excess calories] Onset: 02-10-2025 02-10-2025 Chronic Other nutritional; endocrine; and metabolic disorders (1 source) Obesity; Translations: [Obesity, unspecified] 06-25-2025 Chronic Other screening for suspected conditions (not mental disorders or infectious disease) (11 sources) Screening for malignant neoplasm of colon done; Translations: [Encounter for screening for malignant neoplasm of colon] Onset: 04-16-2024 Episodic Residual codes; unclassified (20 sources) Obstructive sleep apnea syndrome; Translations: [Obstructive sleep apnea (adult) (pediatric)] Onset: 02-10-2025 08-28-2024 Chronic Residual codes; unclassified (1 source) Hypersomnia; Translations: [Hypersomnia, unspecified] 06-25-2025 Chronic Residual codes; unclassified (4 sources) Reduced libido; Translations: [Decreased libido] Onset: 08-28-2024 Episodic Residual codes; unclassified (2 sources) Localized edema; Translations: [Localized edema] Onset: 03-14-2025 Episodic Screening and history of mental health and substance abuse codes (9 sources) Ex-tobacco user; Translations: [Personal history of nicotine dependence] Onset: 02-10-2025 02-10-2025 Episodic Spondylosis; intervertebral disc disorders; other back problems (3 sources) Chronic low back pain; Translations: [Chronic low back pain] Episodic Unclassified (5 sources) Patient encounter status 04-16-2024 Unclassified (3 sources) Calcified granuloma of lung 08-28-2024 Unclassified (11 sources) Patient on antidepressant monitoring plan Onset: 11-07-2024 11-07-2024 Unclassified (1 source) M54.50 - Low back pain, unspecified,G89.29 - Other chronic pain Past or Other Problems Problem Classification Problem Date Documented Da te Episodic/Chronic Acute bronchitis (20 sources) Acute bronchitis co-occurrent with wheeze; Translations: [Acute bronchitis, unspecified] Onset: 11-16-2023 Resolved: 01-25-2024 01-25-2024 Episodic Diabetes mellitus without complication (4 sources) Prediabetes; Translations: [Impaired fasting glycemia] Onset: 01-14-2022 08-28-2024 Episodic Mood disorders (20 sources) Mood disorders Onset: 05-23-2024 Resolved: 05-13-2025 05-23-2024 Other and unspecified benign neoplasm (20 sources) Pigmented skin lesion ; Translations: [Melanocytic [...] 11-16-2023 Episodic Otitis media and related conditions (20 sources) Acute suppurative otitis media without spontaneous rupture of ear drum; Translations: [Acute suppurative otitis media without spontaneous rupture of ear drum, bilateral] Onset: 11-16-2023 Resolved: 01-25-2024 01-25-2024 Episodic Residual codes; unclassified (20 sources) Sleep apnea; Translations: [Sleep apnea, unspecified] Onset: 04-16-2012 Resolved: 02-10-2025 01-25-2024 Chronic Residual codes; unclassified (4 sources) Amnesia; Translations: [Other amnesia] 07-30-2024 Episodic Results Test Name Value Interpretation Reference Range Facility HbA1c (Bld) [Mass fraction]o n 05-13-2025 Interpretation and review of laboratory results Abnormal [facility] - Hematology and Cell countson 05-13-2025 HbA1c (Bld) [Mass fraction] 7.7 % [facility] 36on 04-07-2025 36 Regarding echo resul t from 04/04/2025: and labs from 04/02/2025: MD Karine Funes MA His echocardiogram and blood testing were okay. Continue same medications. Follow-up as planned unless there is need to see me before that. Patient informed. He verbalized understanding. Normal [facility] CA ECHO DOPPLER COMPLETEon 0 04-04-2025 [place] [address] Cardiology Report Signed Patient: FUNMI JULIO MR#: [id number] : 1955 Acct:[id number] Age/Sex: 69 / M ADM Date: 04/04/25 Loc: CARD Attending Dr: RONDA GAO Ordering Physician: RONDA GAO Date of Service: 04/04/25 Procedure(s): CA echo doppler complete Accession Number(s): [id number] cc: Lela Solorzano CFO; RONDA GAO Patient Name Site Name FUNMI JULIO [facility] Account No Medical Record Number Age Sex Date Time [id number] TBH:[id number] 69 M 04/04/2025 09:02 At the Request Of RONDA GAO ECHOCARDIOGRAM REPORT PROCEDURE: CA ECHO DOPPLER COMPLETE INDICATIONS: Shortness of breath, edema, diabetes COMPARISON: None. DESCRIPTION: COMPLETE ECHOCARDIOGRAM Real-time transthoracic echocardiography with 2D, M-mode, spectral and color flow Doppler performed. QUALITY: Technical quality was adequate. LEFT VENTRICLE: Normal chamber size. Mild concentric left ventricular hypertrophy. LV EF: Normal left ventricular systolic function without wall motion abnormalities, ejection fraction 60% DIASTOLIC: Normal diastolic function. ATRIAL SEPTUM: Appears intact LEFT ATRIUM: Normal chamber size. RIGHT ATRIUM: Normal chamber size. RIGHT VENTRICLE: Normal chamber size. Normal right ventricular systolic function. TRICUSPID VALVE: Normal mobility and thickness. No stenosis with no regurgitation therefore could not evaluate RVSP. MITRAL VALVE: Normal mobility and thickness. No evidence of mitral valve stenosis. There is no mitral annular calcification. No mitral regurgitation. AORTIC VALVE: Normal trileaflet appearance. No visible sclerosis. Normal leaflet mobility. No evidence of aortic valve stenosis. No aortic regurgitation. AORTIC ROOT: Normal diameter and appearance. Ascending aorta is normal in size. PULMONIC VALVE: Normal thickness and mobility. No stenosis. No regurgitation. PERICARDIUM: No evidence of pericardial effusion. IVC: Not well visualized. PLEURA: CONCLUSION: Normal left ventricle size, wall thickness and systolic function without wall motion abnormalities, ejection fraction 60% Normal left ventricle diastolic function Normal right ventricle size and systolic function No significant valvular abnormalities Adult Echocardiography Procedure Report Left Ventricle LVEDD (3.7 - 5.6 cm): 4.64 cm LVESD (2.2 - 4.0 cm): 2.65 cm LVIVS thickness (0.6 - 1.2 cm): 1.14 cm LVPW thickness (0.5 - 1.0 cm): 1.23 cm e': 0.10 m/s E - e': 4.64 LVOT Max Gradient: 8.44 mm[Hg] LVOT Area (cm2): 1.45 m/s Peak Velocity (LVOT): 1.45 m/s Mean Velocity (LVOT): 0.93 m/s LVOT Diameter 2.76 cm Left Ventricular Ejection Fraction: Left Atrium LA Volume Index (2D A2C): 19.74 ml/m2 Left Atrium Systolic Dimension: 3.98 cm Mitral Valve MV E to A Ratio: 0.73 MV Max Gradient: MV Mean Gradient: Mitral Valve A-Wave Peak Velocity: 0.65 m/s Mitral Valve E-Wave Peak Velocity: 0.48 m/s Cardiovascular Orifice Area: Right Ventricle RV Internal Diastolic Dimension: Aorta AO Root Diam: 3.58 cm Ascending Ao Diam: 3.26 cm Aortic Valve AoV Area (Peak Woo): 5.76 cm2, 5.76 cm2 AoV Area (VTI): 4.92 cm2, 4.92 cm2 Deceleration [place]: Pressure Half-Time: Peak Velocity(Antegrade Flow): 1.51 m/s Peak Gradient(Antegrade Flow): 9.15 mm[Hg] Mean Velocity(Antegrade Flow): 0.96 m/s Mean Gradient(Antegrade Flow): 4.47 mm[Hg] Velocity Time Integral: 33.51 cm Tricuspid Valve Peak Velocity (Regurgitant Flow): Peak Velocity: Pulmonic Valve Mean Gradient: 2.42 mm[Hg] Mean Velocity: 0.72 m/s Peak Velocity: 1.15 m/s, 1.14 m/s Peak Gradient: 5.15 mm[Hg], 5.30 mm[Hg] Right Atrium Right Atrium Systolic Pressure: 67.75 ml, 67.75 ml Di (more content not included)... [facility] Radiology, Radiologist, MD - 04/04/2025 [place] [address] Cardiology Report Signed Patient: FUNMI JULIO MR#: [id number] : 1955 Acct:[id number] Age/Sex: 69 / M ADM Date: 04/04/25 Loc: CARD Attending Dr: RONDA GAO Ordering Physician: RONDA GAO Date of Service: 04/04/25 Procedure(s): CA echo doppler complete Accession Number(s): [id number] cc: Lela Solorzano CFO; RONDA GAO Patient Name Site Name FUNMI JULIO [facility] Account No Medical Record Number Age Sex Date Time [id number] [facility]:[id number] 69 M 04/04/2025 09:02 At the Request Of RONDA GAO ECHOCARDIOGRAM REPORT PROCEDURE: CA ECHO DOPPLER COMPLETE INDICATIONS: Shortness of breath, edema, diabetes COMPARISON: None. DESCRIPTION: COMPLETE ECHOCARDIOGRAM Real-time transthoracic echocardiography with 2D, M-mode, spectral and color flow Doppler performed. QUALITY: Technical quality was adequate. LEFT VENTRICLE: Normal chamber size. Mild concentric left ventricular hypertrophy. LV EF: Normal left ventricular systolic function without wall motion abnormalities, ejection fraction 60% DIASTOLIC: Normal diastolic function. ATRIAL SEPTUM: Appears intact LEFT ATRIUM: Normal chamber size. RIGHT ATRIUM: Normal chamber size. RIGHT VENTRICLE: Normal chamber size. Normal right ventricular systolic function. TRICUSPID VALVE: Normal mobility and thickness. No stenosis with no regurgitation therefore could not evaluate RVSP. MITRAL VALVE: Normal mobility and thickness. No evidence of mitral valve stenosis. There is no mitral annular calcification. No mitral regurgitation. AORTIC VALVE: Normal trileaflet appearance. No visible sclerosis. Normal leaflet mobility. No evidence of aortic valve stenosis. No aortic regurgitation. AORTIC ROOT: Normal diameter and appearance. Ascending aorta is normal in size. PULMONIC VALVE: Normal thickness and mobility. No stenosis. No regurgitation. PERICARDIUM: No evidence of pericardial effusion. IVC: Not well visualized. PLEURA: CONCLUSION: Normal left ventricle size, wall thickness and systolic function without wall motion abnormalities, ejection fraction 60% Normal left ventricle diastolic function Normal right ventricle size and systolic function No significant valvular abnormalities Adult Echocardiography Procedure Report Left Ventricle LVEDD (3.7 - 5.6 cm): 4.64 cm LVESD (2.2 - 4.0 cm): 2.65 cm LVIVS thickness (0.6 - 1.2 cm): 1.14 cm LVPW thickness (0.5 - 1.0 cm): 1.23 cm e': 0.10 m/s E - e': 4.64 LVOT Max Gradient: 8.44 mm[Hg] LVOT Area (cm2): 1.45 m/s Peak Velocity (LVOT): 1.45 m/s Mean Velocity (LVOT): 0.93 m/s LVOT Diameter 2.76 cm Left Ventricular Ejection Fraction: Left Atrium LA Volume Index (2D A2C): 19.74 ml/m2 Left Atrium Systolic Dimension: 3.98 cm Mitral Valve MV E to A Ratio: 0.73 MV Max Gradient: MV Mean Gradient: Mitral Valve A-Wave Peak Velocity: 0.65 m/s Mitral Valve E-Wave Peak Velocity: 0.48 m/s Cardiovascular Orifice Area: Right Ventricle RV Internal Diastolic Dimension: Aorta AO Root Diam: 3.58 cm Ascending Ao Diam: 3.26 cm Aortic Valve AoV Area (Peak Woo): 5.76 cm2, 5.76 cm2 AoV Area (VTI): 4.92 cm2, 4.92 cm2 Deceleration [place]: Pressure Half-Time: Peak Velocity(Antegrade Flow): 1.51 m/s Peak Gradient(Antegrade Flow): 9.15 mm[Hg] Mean Velocity(Antegrade Flow): 0.96 m/s Mean Gradient(Antegrade Flow): 4.47 mm[Hg] Velocity Time Integral: 33.51 cm Tricuspid Valve Peak Velocity (Regurgitant Flow): Peak Velocity: Pulmonic Valve Mean Gradient: 2.42 mm[Hg] Mean Velocity: 0.72 m/s Peak Velocity: 1.15 m/s, 1.14 m/s Peak Gradient: 5.15 mm[Hg], 5.30 mm[Hg] Right Atrium Right Atrium Systolic Pressure: 67.75 ml, 67.75 ml Dictated by: Clay Ruvalcaba MD on 04/04/2025 at 18:06 Approved by: Clay Ruvalcaba MD on 04/04/2025 at 18:12 Dictated By: Clay Ruvalcaba M.D. Signed By: 04/04/251813 DD/ 11 TD/TT: Claims Customer Service Representative: [facility] Radiology Study observation (narrative) [facility] CA ECHO DOPPLER COMPLETEOrde red By: Radiologist Radiology on 04-04-2025 [facility] Work Phone: ALL BASIC METABOLIC PANELon 04-02-2025 Anion gap [Moles/Vol] 12 mmol/L [facility] Calcium [Mass/Vol] 9.1 mg/dL 8.5 - 10. 1 mg/dL [facility] Chloride [Moles/Vol] 98 mmol/L 98 - 10 7 mmol/L [facility] CO2 [Moles/Vol] 30 mmol/L 21.0 - 32.0 mmol/L [facility] Creatinine [Mass/Vol] 0.97 mg/dL 0.70 - 1.30 mg/dL [facility] GFR/1.73 sq M.predicted CKD-EPI (S/P/Bld) [Vol rate/Area] >60 >=60 mL/min/1.73m 2 [facility] Glucose [Mass/Vol] 145 mg/dL High 74 - 106 mg/dL [facility] Interpretation and review of laboratory results Abnormal [facility] Potassium [Moles/Vol] 4 mmol/L 3.5 - 5.1 mmol/L [facility] Sodium [Moles/Vol] 136 mmol/L 136 - 145 mmol/L [facility] TBH EGFR-NON AF THAI >60 >=60 mL/min/1.73m 2 [facility] Urea nitrogen [Mass/Vol] 8 mg/dL 7.0 - 18.0 mg/dL [facility] Urea nitrogen/Creatinine [Mass ratio] 8.2 mg/mg [facility] ALL PRO BNPon 04-02-2025 NT PRO B TYPE NATRIURETIC PEPT 24 pg/mL NINF - 900.0 pg/mL [facility] CT CHEST WO CONon 04-02-[address] [address] [address] Scan Report Signed Patient: FUNMI JULIO MR#: [id number] : 1955 Acct:[id number] Age/Sex: 69 / M ADM Date: 04/02/25 Loc: CT Attending Dr: Fracisco Morrison D.O. Ordering Physician: Fracisco Morrison D.O. Date of Service: 04/02/25 Procedure(s): CT chest wo con Accession Number(s): [id number] cc: Lela Solorzano NP [address] [address] Patient Name: FUNMI JULIO MRN: TBH:[id number] date: 1955 Sex: M Assigned Patient Location: CT Current Patient Location: CT Accession/Order Number: [id number] Exam Date: 04/02/2025 09:52 Report Date: 04/02/2025 [...] focal atelectasis or scarring. Impression dictated by: John Sneed Jr., D.O. 04/02/2025 9:55 AM Dictation Location: [place] [address] Electronically authenticated by: [id number] Y Date: 04/02/2025 09:55 Dictated By: John Sneed M.D. Signed By: 04/02/2557 DD/ 4 TD/TT: Claims Customer Service Representative: [facility] Radiology, Radiologist, MD - 04/02/2025 [place] [address] CT Scan Report Signed Patient: FUNMI JULIO MR#: [id number] : 1955 Acct:[id number] Age/Sex: 69 / M ADM Date: 04/02/25 Loc: CT Attending Dr: Fracisco Morrison D.O. Ordering Physician: Fracisco Morrison D.O. Date of Service: 04/02/25 Procedure(s): CT chest wo con Accession Number(s): [id number] cc: Lela Solorzano NP [facility] [place] [id number] Patient Name: FUNMI JULIO MRN: [facility]:[id number] date: 1955 Sex: M Assigned Patient Location: CT Current Patient Location: CT Accession/Order Number: [id number] Exam Date: 04/02/2025 09:52 Report Date: 04/02/2025 [...] focal atelectasis or scarring. Impression dictated by: John Sneed Jr., D.O. 04/02/2025 9:55 AM Dictation Location: [place] [address] Electronically authenticated by: [id number] Y Date: 04/02/2025 09:55 Dictated By: John Sneed M.D. Signed By: 04/02/25 0957 DD/ TD/TT: Claims Customer Service Representative: [facility] Radiology Study observation (narrative) [facility] CT CHEST WO CONOrdered By: Danielle kilgoreiologschuyler Radiology on 04-02-2025 [facility] Work Phone: No Panel Informationon 04-02 [facility] Ambulatory Visit Summaryon 0 03-19-2025 Ambulatory Visit Summary Ambulatory Visit Summary FUNMI JULIO :1955 Visit Date:03/19/2025 Ambulatory Visit Instructions Your Diagnosis Hypogonadism male ED (erectile dysfunction) Acquired buried penis Screening PSA (prostate specific antigen) Your Care Team Attending Physician - Davey PARISH, Tania Angel Primary Care Physician - MS. CHIOMA HARDY This Is Your Medications List anastrozole [...] 8:30 AM EDT Where: [facility] [place] [address]- You Need to Schedule the Following Appointments Follow Up with Davey PARISH, ODALYS Arrieta, URO When: Where: You Need to Complete [...] thank you for choosing us for your ca (more content not included)... Normal [facility] Urology Office/Clinic Noteon 03-19-2025 Urology Office/Clinic Note Urology Office/Clinic Note Chief Complaint 3 month [...] 1. Hypogonadism male (E29.1: Testicular hypofunction) Testosterone (345-575) 09/03/24 - 242 09/10/24 - 220 03/12/25 [...] 03/19/2025 10:49:02. . 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 [facility] Comment on above: Result Comment: Elec tronically Signed By: Tania Mariscal MD\.br\Date and Time Signed: 03/19/25 10:57 EDT\.br\Electronically Co-Signed By: Aditi Mora\.br\Date and Time Co-Signed: 03/19/25 10:49 EDT\.br\Electronically Co-Signed By: Aditi Mora\.br\Date and Time Co-Signed: 03/19/25 10:55 EDT Office Visiton 03-14-2025 Follow-up visit [id number] Funmi Julio 1955 M Date Provider Department Center 03/14/2025 RONAD MÉNDEZ EVIE Flores Family History Problem Relation Age of Onset Diabetes Mother Hypertension Brother Heart attack Other Family Status - Relation Status Age at Mother Father Sister Alive Brother Other Level of Service:75493 RI OFFICE/OUTPATIENT ESTABLISHED MOD MDM 30 MIN Normal [facility] Testost Totalon 03-14-2025 Testosterone [Mass/Vol] 348 ng/dL Invalid Interpretation Code [id number] [facility] Comment on above: Result Comment: Adul t male reference interval is based on a population of healthy nonobese males (BMI <30) between 19 and 39 years old. chelsie Martin.al. JCEM 2017,102;4837-9788. PMID: [id number]. Performed at: [facility] [id number] PhD Isabel Godwin Performed By: #### 2 [id number] #### [facility] [address] [place] [address] ALL CBC WITH AUTO DIFFon BASOPHILS ABSOLUTE AUTO 0.1 [facility] Basophils/100 WBC (Bld) 0.6 % 0.2 - 2.0 % [facility] Eosinophils/100 WBC (Bld) 2.5 % 0.9 - 7.0 % [facility] Erythrocyte distribution width (RBC) [Ratio] 14.1 % 11.0 - 15.0 % [facility] Hematocrit (Bld) [Volume fraction] 43.6 % 42.0 - 54.0 % [facility] Hemoglobin (Bld) [Mass/Vol] 14.5 g/dL 14.0 - 18.0 g/dL [facility] IMMATURE GRANULOCYTES ABS AUTO 0.05 High [facility] Immature granulocytes/100 WBC (Bld) 0.5 % 0.0 - 0.5 % [facility] Interpretation and review of laboratory results Abnormal [facility] LYMPHOCYTES ABSOLUTE AUTO 3.6 [facility] Lymphocytes/100 WBC (Bld) 34.5 % 20.5 - 60.0 % [facility] MCH (RBC) [Entitic mass] 29.1 pg 25.9 - 34.0 pg [facility] MCHC (RBC) [Mass/Vol] 33.3 g/dL 29.9 - 35.2 g/dL [facility] MCV (RBC) [Entitic vol] 87.4 fL 80.0 - 94.0 fL [facility] MONOCYTES ABSOLUTE AUTO 0.7 [facility] Monocytes/100 WBC (Bld) 6.6 % 1.7 - 12.0 % [facility] NEUTROPHILS ABSOLUTE AUTO 5.8 [facility] Neutrophils/100 WBC (Bld) 55.3 % 43.0 - 75.0 % [facility] Platelet mean volume (Bld) [Entitic vol] 8.7 fL Low 9.5 - 13.5 fL [facility] TBH EO # 0.3 [facility]H PLT 347 [facility] TB RBC 4.99 [facility] TB WBC 10.4 [facility] CHEMISTRYOrdered By: SYSTEM SYSTEM on 03-12-2025 Prostate specific Ag [Mass/Vol] 1.5 ng/mL Normal 0.1 - 3.5 ng/mL [facility] Comment on above: Interpretive Data: T he concentration of PSA determined by different manufacturers can vary due to differences in assay methods and reagent specificity. Values obtained from different assay methods cannot be used interchangeably. The methodology used for this result was chemiluminescence using [employer] Hybritech PSA reagent. PSA Totalon 03-12-2025 Prostate specific Ag [Mass/Vol] 1.5 ng/mL Normal 0.1-3.5 [facility] Comment on above: Result Comment: The concentration of PSA determined by different manufacturers can vary due to differences in assay methods and reagent specificity. Values obtained from different assay methods cannot be used interchangeably. The methodology used for this result was chemiluminescence using [employer] Access Hybritech PSA reagent. Performed By: #### 1 [id number] #### [facility] [address] [place] [address] Ambulatory Visit Summaryon 0 12-18-2024 Ambulatory Visit Summary Ambulatory Visit Summary NORIFUNMI Madden :1955 Visit Date:12/18/2024 Ambulatory Visit Instructions Your Diagnosis ED (erectile dysfunction) Hypogonadism male Acquired buried penis Your Care Team Attending Physician - Davey PARISH, Tania Angel Primary Care Physician - ANTONY, MS. CHIOMA BADILLO This Is Your Medications List [...] AM EDT With: Where: [facility] [address] [address]- Monday 10:00 AM EDT With: Davey PARISH, Tania Angel Where: [facility] [address] [address]- You Need to Schedule the Following Appointments [...] Duration: 90 Days Refills: 1 Pickup at [facility] New testosterone (Jatenzo 237 mg oral capsule) 1 Capsules By Mouth 2 times a day Refills: 11 Pickup at [facility] Unchanged albuterol (Albuterol (Eqv-Ventolin HFA) 90 [...] physician if questions or concerns Pharmacy Information [facility]: [address] [place], [place] [phone] Allergies oxyCODONE (SOB - Shortness of breath, Hives) Problems Ongoing - Any problem that you are currently receiving treatment for. Acquired buried penis A (more content not included)... [facility] Urology Office/Clinic Noteon 12-18-2024 Urology Office/Clinic [...] Estrogen 98, LH 10.2, Prolactin 10.9 Testosterone (264-916) 09/03/24 - 242 09/10/24 - 220 Discussed [...] is to get the labs at the custodial point of getting the injections. Pt will [...] ED (erectile (more content not included)... [facility] Comment on above: Result Comment: Elec [...] and 39 years old. chelsie Martin.al. JCEM 2017,102;2123-0533. PMID: [id number]. No Panel Informationon 09-15 Interpretation and review of laboratory results Abnormal [facility] ESTROGENon 09-15-2024 ESTROGENS, TOTAL 98 pg/mL 56 - 213 pg/mL [facility] Comment on above: Prepubertal <40 Performed at: [facility] [address] [id number] Furnace Mechanic: Wilber Reina MD, Phone: [phone] [facility] PROLACTINon 09-15-2024 PROLACTIN 10.9 ng/mL 3.6 - 25.2 ng/mL [facility] Healthcare Comment on above: Performed at: [address] [id number] Furnace Mechanic: Tato Hall PhD, Phone: [phone] ALL TESTOSTERONEon Interpretation and review of laboratory results Abnormal [facility] Testosterone [Mass/Vol] 242 ng/dL Abnormal 264 - 916 ng/dL [facility] Comment on above: Adult male reference interval is based on a population of healthy nonobese males (BMI <30) between 19 and 39 years old. chelsie Martin.al. JCEM 2017,102;6588-3884. PMID: [id number]. Performed at: - [address] [id number] Furnace Mechanic: Tato Hall PhD, Phone: [phone] [facility] Ambulatory Visit Summaryon 1 Ambulatory Visit Summary Ambulatory Visit Summary FUNMI JULIO :1955 Visit Date:08/28/2024 Ambulatory Visit Instructions Your Diagnosis ED (erectile dysfunction) Low libido Acquired buried penis Screening PSA (prostate specific antigen) Your Care Team Attending Physician - Tania Mariscal MD Primary Care Physician - MS. CHIOMA HARDY Referring Physician - ANTONY, MS. CHIOMA BADILLO This Is Your Medications List Contact [...] Davey PARISH, Tania Angel Where: [facility] [address] [place] [address] [place] [address]- You Need to Schedule the Following Appointments Follow Up with Davey PARISH, ODALYS Arrieta, JESSICA When: Where: [address], [place] [phone] Medications What How Much When Instructions Unchanged [...] the cau (more content not included)... [facility] Urology Office/Clinic Noteon 08-28-2024 Urology Office/Clinic [...] testosterone (7-11 AM). Plans to go to [facility]. -If low, will confirm with repeat [...] of elevat (more content not included)... [facility] Comment on above: Result Comment: Elec tronically Signed By: Davey PARISH, Tania Angel\.br\Date and Time Signed: 08/28/24 11:36 EDT Reminderson 05-31-2024 Reminders Reminders From: Tracy Walls LPN To: [facility] - Clinical; Sent: 05/31/2024 09:11:26 EDT Show up: 04/29/2034 07:00:00 EDT Subject: colonoscopy recall Due Date/Time: 05/29/2034 07:00:00 EDT Reminder/Recall Patient due for screening colonoscopy 05/29/2034. [facility] Insurance Correspondenceon 0 05-17-2024 Insurance Correspondence [id number]# 1.00TIFF [facility] Consent for Procedure/Surger yon 04-18-2024 Consent for Procedure/Surgery [id number]#1. 00TIFF [facility] Facesheeton 04-17-2024 Facesheet [id number]# 1.00TIFF [facility] Ambulatory Visit Summaryon 0 04-16-2024 Ambulatory Visit Summary FUNMI JULIO :1955 Visit Date:04/16/2024 Ambulatory Visit Instructions Your Diagnosis Screening for malignant neoplasm of colon Class 3 obesity Your Care Team Attending Physician - MARTÍN PARISH, Funmi Santos Primary Care Physician - TIFFANIE PARISH, [facility] Referring Physician - ERAN PARISH, RACHID This Is Your Medications List Contact prescribing [...] for choosing us for your care. [facility] CARDIAC STRESS TESTon 2021 CARDIAC STRESS [...] interpreted and reported in a separate dictation. [facility] Signed and Approved by: DR PADDY STANFORD 02/01/2022 09:17:00 Normal [facility] NM STRESS/REST MULTIon 01-25 NM STRESS/REST MULTI Patient: FUNMI JULIO Exam Date: 01/25/2022 : 1955 Gender:M Ordering : MARIANELA MCCULLOUGH Admission #: [id number] Family : Order #: [id number] CLICK HERE TO VIEW EXAM RADIOLOGY REPORT [...] Irvin M.D. on 01/26/2022 at 11:49 Normal [facility] BNPon 01-12-2022 NT PRO BNP <11.1 Normal <=900.0 [facility] Comment on above: Performed By: #### B CFO, CMP, LIPID, CRP #### [facility] [address] [place] [address] [address] Ramehs Min CBC AUTO DIFFon 01-12-2022 BASO # 0.1 103/ul Normal 0.0-0.1 [facility] Comment on above: Performed By: #### C BC #### [facility] [address] [place] [address] Dr. Ramesh Min Basophils/100 WBC (Bld) 0.5 % Normal 0.2-2.0 [facility] Comment on above: Performed By: #### C BC #### [facility] [address] [place] [address] Dr. Ramesh Min EO # 0.2 103/ul Normal 0.0-0.7 [facility] Comment on above: Performed By: #### C BC #### [facility] [address] [place] [address] Dr. Ramesh Min Eosinophils/100 WBC (Bld) 2.0 % Normal 0.9-7.0 [facility] Comment on above: Performed By: #### C BC #### [facility] [address] [place] [address] Dr. Ramesh Min Erythrocyte distribution width (RBC) [Ratio] 13.1 % Normal 11.0-15.0 [facility] Comment on above: Performed By: #### C BC #### [facility] [address] [place] [address] Dr. Ramesh Min Hematocrit (Bld) [Volume fraction] 44.2 % Normal 42.0-54.0 [facility] Comment on above: Performed By: #### C BC #### [facility] [address] [place] [address] Dr. Ramesh Min Hemoglobin (Bld) [Mass/Vol] 14.8 g/dL Normal 14.0-18.0 [facility] Comment on above: Performed By: #### C BC #### [facility] [address] [place] [address] Dr. Ramesh Min IG # 0.05 10e3/ul Critically high 0.00-0.03 [facility] Comment on above: Performed By: #### C BC #### [facility] [address] [place] [address] Dr. Ramesh Min IG % 0.5 % Normal 0.0-0.5 [facility] Comment on above: Performed By: #### C BC #### [facility] [address] [place] [address] Dr. Ramesh Min LYMPH # 2.4 103/ul Normal 1.2-3.8 [facility] Comment on above: Performed By: #### C BC #### [facility] [address] [place] [address] Dr. Ramesh Min Lymphocytes/100 WBC (Bld) 25.0 % Normal 20.5-60.0 [facility] Comment on above: Performed By: #### C BC #### [facility] [address] [place] [address] Dr. Ramesh Min MANUAL DIFF REQ NO Normal [facility] Comment on above: Performed By: #### C BC #### [facility] [address] [place] [address] Dr. Ramesh Min MCH (RBC) [Entitic mass] 30.5 pg Normal 25.9-34.0 [facility] Comment on above: Performed By: #### C BC #### [facility] [address] [place] [address] Dr. Ramesh Min MCHC (RBC) [Mass/Vol] 33.5 g/dL Normal 29.9-35.2 [facility] Comment on above: Performed By: #### C BC #### [facility] [address] [place] [address] Dr. Ramesh Min MCV (RBC) [Entitic vol] 91.1 fL Normal 80.0-94.0 [facility] Comment on above: Performed By: #### C BC #### [facility] [address] [place] [address] Dr. Ramesh Min MONO # 0.8 103/ul Normal 0.3-0.8 [facility] Comment on above: Performed By: #### C BC #### [facility] [address] [place] [address] Dr. Ramesh Min Monocytes/100 WBC (Bld) 8.8 % Normal 1.7-12.0 [facility] Comment on above: Performed By: #### C BC #### [facility] [address] [place] [address] Dr. Ramesh Min NEUT # 6.1 103/ul Normal 1.4-6.5 [facility] Comment on above: Performed By: #### C BC #### [facility] [address] [place] [address] Dr. Ramesh Min Neutrophils/100 WBC (Bld) 63.2 % Normal 43.0-75.0 [facility] Comment on above: Performed By: #### C BC #### [facility] [address] [place] [address] Dr. Ramesh Min Platelet mean volume (Bld) [Entitic vol] 8.7 fL Critically low 9.5-13.5 [facility] Comment on above: Performed By: #### C BC #### [facility] [address] [place] [address] Dr. Ramesh Min PLT 330 103/ul Normal 150-450 [facility] Comment on above: Performed By: #### C BC #### [facility] [address] [place] [address] Dr. Ramesh Min RBC 4.85 106/ul Normal 4.70-6.10 [facility] Comment on above: Performed By: #### C BC #### [facility] [address] [place] [address] Dr. Ramesh Min WBC 9.6 103/ul Normal 4.0-11.0 [facility] Comment on above: Performed By: #### C BC #### [facility] [address] [place] [address] Dr. Ramesh Min CRPon 01-12-2022 CRP 0.7 mg/dL Normal <=1.0 [facility] Comment on above: Performed By: #### B CFO, CMP, LIPID, CRP #### [facility] [address] [place] [address] Dr. Ramesh Min ECHOCARDIO M/2D COMPLETEon 0 2-16-2022 ECHOCARDIO M/2D COMPLETE Patient: FUNMI JULIO Exam Date: 01/12/2022 : 1955 Gender:M Ordering : MARIANELA MCCULLOUGH Admission #: [id number] Family : Order #: [id number] CLICK HERE TO VIEW EXAM ECHOCARDIOGRAM REPORT [...] Gao M.D. on 01/13/2022 at 08:51 Normal [facility] GLYCOHEMOGLOBIN A1Con 2021 ADA RECOMMENDATION ADA THERAPEUTIC TARGET 6.0 - 7.0 ACTION SUGGESTED > 7.0 Normal [facility] Comment on above: Performed By: #### A 1C #### [facility] [address] [place] [address] [address] Ramesh Min Glucose [Mass/Vol] 137 mg/dL Normal [facility] Comment on above: Performed By: #### A 1C #### [facility] [address] [place] [address] [address] Ramesh Min HbA1c (Bld) [Mass fraction] 6.4 % Critically high <=6.0 [facility] Comment on above: Performed By: #### A 1C #### [facility] [address] [address] [address] Ramesh Min LIPID PROFILEon 01-12-2022 CHOL-HDL RATIO NORM SEE BELOW Normal [facility] Comment on above: Result Comment: 3.3 - 4.4 LOW RISK 4.4 - 7.1 AVERAGE RISK 7.1 - 11.0 MODERATE RISK >11.0 HIGH RISK Performed By: #### B CFO, CMP, LIPID, CRP #### [facility] [address] [address] [address] Ramesh Min Cholesterol [Mass/Vol] 125 mg/dL Normal <=200 [facility] Comment on above: Performed By: #### B CFO, CMP, LIPID, CRP #### [facility] [address] [address] [address] Ramesh Min Cholesterol in HDL [Mass/Vol] 39 mg/dL Normal [facility] Comment on above: Performed By: #### B CFO, CMP, LIPID, CRP #### [facility] [address] [address] [address] Ramesh Min Cholesterol in LDL [Mass/Vol] 69.2 mg/dL Normal [facility] Comment on above: Performed By: #### B CFO, CMP, LIPID, CRP #### [facility] [address] [address] [address] Ramesh Min Cholesterol.total/Ch olesterol in HDL [Mass ratio] 3.2 {ratio} Normal [facility] Comment on above: Performed By: #### B CFO, CMP, LIPID, CRP #### [facility] [address] [address] [address] Ramesh Min HDL NORMAL > or = 60 mg/dl - LO W CARDIOVASCULAR RISK <40 mg/dl - HIGH CARDIOVASCULAR RISK Normal [facility] Comment on above: Performed By: #### B CFO, CMP, LIPID, CRP #### [facility] [address] [address] [address] Ramesh Min LDL CALC NORMAL SEE BELOW Normal [facility] Comment on above: Result Comment: <100 mg/dl OPTIMAL 100 - 129 mg/dl NEAR OR ABOVE OPTIMAL 130 - 159 mg/dl BORDERLINE HIGH 160 - 189 mg/dl HIGH >190 mg/dl VERY HIGH Performed By: #### B CFO, CMP, LIPID, CRP #### [facility] [address] [address] [address] Ramesh Min Triglyceride [Mass/Vol] 84 mg/dL Normal <=150 [facility] Comment on above: Performed By: #### B CFO, CMP, LIPID, CRP #### [facility] [address] [address] [address] Ramesh Min VLDL CALC 16.8 mg/dL Normal [facility] Comment on above: Performed By: #### B CFO, CMP, LIPID, CRP #### [facility] [address] [address] [address] Ramesh Min PROF 14(COMP METB)on 022 Albumin [Mass/Vol] 3.7 g/dL Normal 3.5-5.0 [facility] Comment on above: Performed By: #### B CFO, CMP, LIPID, CRP #### [facility] [address] [address] [address] Ramesh Min Albumin/Globulin [Mass ratio] 0.9 {ratio} Normal [facility] Comment on above: Performed By: #### B CFO, CMP, LIPID, CRP #### [facility] [address] [address] [address] Ramesh Min ALP [Catalytic activity/Vol] 75 U/L Normal 38-126 [facility] Comment on above: Performed By: #### B CFO, CMP, LIPID, CRP #### [facility] [address] [place] [address] Dr. aRmesh Min ALT [Catalytic activity/Vol] 33 U/L Normal 21-72 [facility] Comment on above: Performed By: #### B CFO, CMP, LIPID, CRP #### [facility] [address] [place] [address] Dr. Ramesh Min Anion gap [Moles/Vol] 10.8 mmol/L Normal [facility] Comment on above: Performed By: #### B CFO, CMP, LIPID, CRP #### [facility] [address] [place] [address] Dr. Ramesh Min AST [Catalytic activity/Vol] 15 U/L Critically low 17-59 [facility] Comment on above: Performed By: #### B CFO, CMP, LIPID, CRP #### [facility] [address] [place] [address] Dr. Ramesh Min Bilirubin [Mass/Vol] 0.3 mg/dL Normal 0.2-1.3 [facility] Comment on above: Performed By: #### B CFO, CMP, LIPID, CRP #### [facility] [address] [place] [address] Dr. Ramesh Min Calcium [Mass/Vol] 9.5 mg/dL Normal 8.4-10.2 [facility] Comment on above: Performed By: #### B CFO, CMP, LIPID, CRP #### [facility] [address] [place] [address] Dr. Ramesh Min Chloride [Moles/Vol] 103 mmol/L Normal 98-107 [facility] Comment on above: Performed By: #### B CFO, CMP, LIPID, CRP #### [facility] [address] [address] [address] Ramesh Min CO2 [Moles/Vol] 28.4 mmol/L Normal 22.0-30.0 [facility] Comment on above: Performed By: #### B CFO, CMP, LIPID, CRP #### [facility] [address] [address] [address] Ramesh Min Creatinine [Mass/Vol] 0.92 mg/dL Normal 0.66-1.25 [facility] Comment on above: Performed By: #### B CFO, CMP, LIPID, CRP #### [facility] [address] [address] [address] Ramesh Min EGFR-AF THAI >60 Normal >=60 [facility] Comment on above: Performed By: #### B CFO, CMP, LIPID, CRP #### [facility] [address] [address] [address] Ramesh Min EGFR-NON AF THAI >60 Normal >=60 [facility] Comment on above: Performed By: #### B CFO, CMP, LIPID, CRP #### [facility] [address] [address] [address] Ramesh Min Globulin (S) [Mass/Vol] 4.1 g/dL Normal [facility] Comment on above: Performed By: #### B CFO, CMP, LIPID, CRP #### [facility] [address] [address] [address] Ramesh Min Glucose [Mass/Vol] 104 mg/dL Normal 74-106 [facility] Comment on above: Performed By: #### B CFO, CMP, LIPID, CRP #### [facility] [address] [address] [address] Ramesh Min Potassium [Moles/Vol] 4.2 mmol/L Normal 3.4-5.0 [facility] Comment on above: Performed By: #### B CFO, CMP, LIPID, CRP #### [facility] [address] [address] [address] Ramesh Min Protein [Mass/Vol] 7.8 g/dL Normal 6.1-8.2 [facility] Comment on above: Performed By: #### B CFO, CMP, LIPID, CRP #### [facility] [address] [place] [address] Dr. Ramesh Min Sodium [Moles/Vol] 138 mmol/L Normal 137-145 [facility] Comment on above: Performed By: #### B CFO, CMP, LIPID, CRP #### [facility] [address] [place] [address] Dr. Ramesh Min Urea nitrogen [Mass/Vol] 18.0 mg/dL Normal 9.0-20.0 [facility] Comment on above: Performed By: #### B CFO, CMP, LIPID, CRP #### [facility] [address] [place] [address] Dr. Ramesh Min Urea nitrogen/Creatinine [Mass ratio] 19.6 mg/mg Normal [facility] Comment on above: Performed By: #### B CFO, CMP, LIPID, CRP #### [facility] [address] [place] [address] Dr. Ramesh Min SED RATE [facility] 2021 SED RATE 20 mm/hr Normal <=20 [facility] Comment on above: Performed By: #### S EDR #### [facility] [address] [place] [address] Dr. Ramesh Min Vital Signs Date Time Vital Sign Value Performing Clinician Facility 08-13-2025 09:45-0400 Body height 182.88 cm [facility] 08-13-2025 09:45-0400 Body mass index (BMI) [Ratio] 43.7 kg/m2 [facility] 08-13-2025 09:45-0400 Body temperature 96.5 [degF] [facility] 08-13-2025 09:45-0400 Body weight 146.11 kg [facility] 08-13-2025 09:45-0400 Diastolic blood pressure 86 mm[Hg] [facility] 08-13-2025 09:45-0400 Heart rate 83 /min [facility] 08-13-2025 09:45-0400 Respiratory rate 24 /min [facility] 08-13-2025 09:45-0400 SaO2% (BldA) [Mass fraction] 94 % [facility] 08-13-2025 09:45-0400 Systolic blood pressure 148 mm[Hg] [facility] 06-25-2025 13:32-0400 Body height 182.88 cm [facility] 06-25-2025 13:32-0400 Body mass index (BMI) [Ratio] 42.8 kg/m2 [facility] 06-25-2025 13:32-0400 Body weight 143.33 kg [facility] 06-25-2025 13:32-0400 Diastolic blood pressure 88 mm[Hg] [facility] 06-25-2025 13:32-0400 Heart rate 77 /min [facility] 06-25-2025 13:32-0400 SaO2% (BldA) [Mass fraction] 91 % [facility] 06-25-2025 13:32-0400 Systolic blood pressure 128 mm[Hg] [facility] 05-13-2025 09:59-0400 Body mass index (BMI) [Ratio] 43.29 kg/m2 Lela Solorzano CFO Work Phone: [facility] 05-13-2025 09:59-0400 Body temperature 96.69 [degF] Lela Solorzano CFO Work Phone: [facility] 05-13-2025 09:59-0400 Body weight 144.79 kg Lela Jeanine CFO Work Phone: [facility] 05-13-2025 09:59-0400 Diastolic blood pressure 82 mm[Hg] Lela Jeanine CFO Work Phone: [facility] 05-13-2025 09:59-0400 Heart rate 51 /min Lela Jeanine CFO Work Phone: [facility] 05-13-2025 09:59-0400 Respiratory rate 20 /min Lela Jeanine CFO Work Phone: [facility] 05-13-2025 09:59-0400 SaO2% (BldA) [Mass fraction] 94 % Lela Jeanine CFO Work Phone: [facility] 05-13-2025 09:59-0400 Systolic blood pressure 116 mm[Hg] Lela Jeanine CFO Work Phone: [facility] 12-18-2024 11:36-0500 Blood Pressure Location Tania Lue [facility] 12-18-2024 11:36-0500 Body temperature 98.6 [degF] Tania Lue [facility] 12-18-2024 11:36-0500 Diastolic blood pressure 98 mm[Hg] Tania Lue [facility] 12-18-2024 11:36-0500 Heart rate 80 /min Tania Lue [facility] 12-18-2024 11:36-0500 Systolic blood pressure 150 mm[Hg] Tania Lue [facility] 11-07-2024 09:29-0500 Body height 182.9 cm Chioma Pardopatrick CFO Work Phone: [facility] 11-07-2024 09:29-0500 Body mass index (BMI) [Ratio] 42.59 kg/m2 Chioma Hardy CFO Work Phone: [facility] 11-07-2024 09:29-0500 Body temperature 96.21 [degF] Chioma Hardy CFO Work Phone: [facility] 11-07-2024 09:29-0500 Body weight 142.43 kg Chioma Hardy CFO Work Phone: [facility] 11-07-2024 09:29-0500 Diastolic blood pressure 84 mm[Hg] Chioma Hardy CFO Work Phone: [facility] 11-07-2024 09:29-0500 Heart rate 65 /min Chioma Hardy CFO Work Phone: [facility] 11-07-2024 09:29-0500 Respiratory rate 16 /min Cihoma Hardy CFO Work Phone: [facility] 11-07-2024 09:29-0500 SaO2% (BldA) [Mass fraction] 93 % Chioma Hardy CFO Work Phone: [facility] 11-07-2024 09:29-0500 Systolic blood pressure 136 mm[Hg] Chioma Hardy CFO Work Phone: [facility] 09-04-2024 15:15-0400 Body mass index (BMI) [Ratio] 41.45 kg/m2 Christopher Jazmine DO Work Phone: [facility] 09-04-2024 15:15-0400 Body weight 138.62 kg Christopher Jazmine DO Work Phone: [facility] 09-04-2024 15:15-0400 Diastolic blood pressure 83 mm[Hg] Christopher Jazmine DO Work Phone: [facility] 09-04-2024 15:15-0400 Heart rate 78 /min Christopher Jazmine DO Work Phone: [facility] 09-04-2024 15:15-0400 SaO2% (BldA) [Mass fraction] 94 % Christopher Jazmine DO Work Phone: [facility] 09-04-2024 15:15-0400 Systolic blood pressure 144 mm[Hg] Christopher Jazmine DO Work Phone: [facility] 08-28-2024 10:40-0400 Diastolic blood pressure 72 mm[Hg] [...] 10:31-0400 Body height 182.9 cm Chioma Hardy CFO Work Phone: [facility] 07-23-2024 10:31-0400 Body mass index (BMI) [Ratio] 42.18 kg/m2 Chioma Hardy CFO Work Phone: [facility] 07-23-2024 10:31-0400 Body temperature 97.81 [degF] Chioma Hardy CFO Work Phone: [facility] 07-23-2024 10:31-0400 Body weight 141.07 kg Chioma Hardy CFO Work Phone: [facility] 07-23-2024 10:31-0400 Diastolic blood pressure 80 mm[Hg] Chioma Hardy CFO Work Phone: [facility] 07-23-2024 10:31-0400 Heart rate 85 /min Chioma Hardy CFO Work Phone: [facility] Comment on above: 96% O2 07-23-2024 10:31-0400 Systolic blood pressure 118 mm[Hg] Chioma Hardy CFO Work Phone: [facility] 04-16-2024 15:18-0400 Blood Pressure Location Funmi RESENDIZ [facility] 04-16-2024 15:18-0400 Diastolic blood pressure 92 mm[Hg] Funmi VICTORL [facility] 04-16-2024 15:18-0400 Heart rate 76 /min Funmi NILL [facility] 04-16-2024 15:18-0400 Respiratory rate 16 /min Funmi NILL [facility] 04-16-2024 15:18-0400 Systolic blood pressure 140 mm[Hg] Funmi NILL [facility] Encounters Encounter Date Encounter Type Care Provider Facility Start: 09-24-2025 ambulatory Tania Mariscal Facility:[facility] Start: 08-13-2025 End: 08-13-2025 ambulatory NON ST[facility]FF [facility] Work Phone: Start: 08-13-2025 End: 08-13-2025 Patient encounter procedure Lela Solorzano CFO-C -[facility] Work Phone: Start: 08-10-2025 Patient encounter procedure [facility] Start: 06-25-2025 End: 06-25-2025 ambulatory NON STAFF [facility] Work Phone: Start: 06-25-2025 End: 06-25-2025 Patient encounter procedure Perri Og DO -[facility] Work Phone: Start: 05-19-2025 End: 05-20-2025 Refill Lela Solorzano CFO Work Phone: [facility] Comment on above: Hyperlipidemia, unsp ecified Start: 05-13-2025 End: 05-13-2025 Bamboo flowsheet Lela Solorzano NP Work Phone: [facility] Start: 05-13-2025 End: 05-13-2025 Bamboo flowsheet Lela Solorzano CFO Work Phone: [facility] Start: 05-13-2025 End: 05-13-2025 Patient encounter procedure Lela Jeanine CFO Work Phone: [facility] Comment on above: Encounter for subseq uent annual wellness visit (AWV) in Medicare patient (Primary Dx); Type 2 diabetes mellitus with other specified complication (HCC); Obstructive sleep apnea syndrome; Benign essential hypertension ; Coronary arteriosclerosis ; Morbid (severe) obesity due to excess calories ([facility]-HCC); Type 2 diabetes mellitus without complication, without long-term current use of insulin (HCC); Primary hypertension ; Hyperlipidemia, unspecified ; Suspected chronic obstructive pulmonary disease based on initial evaluation ([facility]) Start: 05-13-2025 End: 05-13-2025 ambulatory LELA JEANINE Not Available Start: 04-04-2025 End: 04-04-2025 Clinisync Result Encounter Generic External Data Provider [facility] External [facility] Unsolicited Start: 04-04-2025 End: 04-04-2025 Clinisync Result Encounter Generic External Data Provider [facility] Unsolicited Start: 04-02-2025 End: 04-02-2025 Clinisync Result Encounter Generic External Data Provider [facility] Unsolicited Start: 04-02-2025 End: 04-02-2025 Clinisync Result Encounter Generic External Data Provider [facility] External [facility] Unsolicited Start: 03-19-2025 End: 03-19-2025 ambulatory Tania Mariscal Facility:[facility] Start: 03-14-2025 End: 03-14-2025 ambulatory [facility] Start: 03-12-2025 End: 03-12-2025 Clinisync Result Encounter Lela Solorzano CFO Work Phone: [facility] Unsolicited Start: 03-12-2025 End: 03-12-2025 Clinisync Result Encounter Lela Jeanine CFO Work Phone: [facility] Unsolicited Start: 03-12-2025 End: 03-12-2025 Lab Drop off Tania Mariscal [facility] Start: 03-12-2025 End: 03-12-2025 ambulatory CHIOMA HARDY Facility:[facility] Start: 02-10-2025 End: 02-10-2025 ambulatory LELA SOLORZANO Not Available Start: 12-18-2024 End: 12-18-2024 ambulatory Tania Mariscal Facility:[facility] Start: 12-18-2024 End: 12-18-2024 Patient encounter procedure Tania Mariscal [facility] Start: 11-07-2024 End: 11-07-2024 Bamboo flowsheet Chioma Doshitrick CFO Work Phone: [facility] Start: 11-07-2024 End: 11-07-2024 Bamboo flowsheet Chioma Servinzpatrick CFO Work Phone: [facility] Start: 11-07-2024 End: 11-07-2024 Refill Chioma Hardy CFO Work Phone: [facility] Comment on above: Type 2 diabetes radha itus without complication, without long- term current use of insulin (CMS/HCC) Start: 11-07-2024 End: 11-07-2024 Office outpatient visit 15 minutes Chioma aHrdy CFO Work Phone: [facility] Comment on [...] obstructive pulmonary disease based on initial evaluation ([facility]) Start: 11-07-2024 End: 11-07-2024 ambulatory CHIOMA HARDY Not Available Start: 10-31-2024 End: 10-31-2024 Refill Krystal Dickson [facility] Comment on above: Essential (primary) hypertension ([facility]) Start: 09-10-2024 End: 09-15-2024 Clinisync Result Encounter Generic External Data Provider [facility] Unsolicited Start: 09-10-2024 End: 09-15-2024 Clinisync Result Encounter Generic External Data Provider [facility] External [facility] Unsolicited Start: 09-04-2024 End: 09-04-2024 Office outpatient visit 25 minutes Tania Lucero DO Work Phone: [facility] Comment on above: Cognitive impairment (Primary Dx) Start: 09-04-2024 End: 09-04-2024 ambulatory TANIA LUCERO Not Available Start: 09-04-2024 End: 09-04-2024 Bamboo flowsheet Tania Lucero DO Work Phone: [facility] Start: 09-04-2024 End: 09-04-2024 Bamboo flowsheet Tania Lucero DO Work Phone: [facility] Start: 09-03-2024 End: 09-04-2024 Clinisync Result Encounter Generic External Data Provider [facility] Unsolicited Start: 09-03-2024 End: 09-04-2024 Clinisync Result Encounter Generic External Data Provider [facility] Unsolicited Start: 08-28-2024 End: 08-28-2024 ambulatory Tania Mariscal Facility:[facility] Start: 08-28-2024 End: 08-28-2024 Patient encounter procedure Tania Mariscal [facility] Start: 08-27-2024 End: 08-27-2024 ambulatory EWRIN TIPTON Facility:[facility] Start: 08-27-2024 End: 08-27-2024 Patient encounter procedure ERWIN Mundo DANUTA [facility] Start: 08-21-2024 End: 08-22-2024 Refill Chioma Hardy CFO Work Phone: [facility] Comment on above: Type 2 diabetes radha itus without complication, without long- term current use of insulin (CMS/HCC) Start: 08-15-2024 End: 08-15-2024 Patient encounter procedure Deshawn Terrell PhD Work Phone: [facility] Comment on above: Memory loss (Primary Dx); ZENON on CPAP; Depression, unspecified depression type (CMS/HCC); History of alcohol abuse Start: 08-15-2024 End: 08-15-2024 ambulatory LELA AICHHOLZ Not Available Start: 07-30-2024 End: 07-30-2024 Bamboo flowsheet Deshawn Terrell PhD Work Phone: [facility] Start: 07-30-2024 End: 07-30-2024 Bamboo flowsheet Deshawn Terrell PhD Work Phone: [facility] Start: 07-30-2024 End: 07-30-2024 Patient encounter procedure Deshawn Terrell PhD Work Phone: [facility] Comment on above: Mild cognitive impai rment (Primary Dx); Memory loss; ZENON on CPAP; Depression, unspecified depression type (CMS/HCC); History of alcohol abuse Start: 07-30-2024 End: 07-30-2024 ambulatory DESHAWN TERRELL Not Available Start: 07-24-2024 ambulatory Tania Jeane Facility:[facility] Start: 07-23-2024 End: 07-23-2024 Bamboo flowsheet Chioma Hardy CFO Work Phone: [facility] Start: 07-23-2024 End: 07-23-2024 Bamboo flowsheet Chioma Antony CFO Work Phone: [facility] Start: 07-23-2024 End: 07-23-2024 Office outpatient visit 25 minutes Chioma Hardy CFO Work Phone: [facility] Comment on above: Type 2 diabetes radha itus without complication, without long- term current use of insulin (CMS/[facility]) (Primary Dx); Benign essential hypertension (CMS/[facility]); Chronic GERD; Suspected chronic obstructive pulmonary disease based on initial evaluation ([facility]); Mild cognitive impairment; Acute bronchitis with wheezing; Mixed hyperlipidemia (CMS/[facility]); Cerumen debris on tympanic membrane of both ears; Solitary pulmonary nodule; Acquired buried penis Start: 07-23-2024 End: 07-23-2024 ambulatory CHIOMA HARDY Not Available Start: 07-08-2024 End: 07-08-2024 ambulatory TANIA LUCERO Not Available Start: 05-29-2024 End: 05-29-2024 ambulatory Funmi RESENDIZ Facility:[id number] Start: 05-23-2024 End: 05-23-2024 ambulatory SHAIKH TIFFANIE Not Available Start: 04-16-2024 End: 04-16-2024 ambulatory Funmi RESENDIZ Facility:[facility] Start: 04-16-2024 End: 04-16-2024 Patient encounter procedure Funmi RESENDIZ [facility] Start: 07-03-2022 ambulatory MARIANELA SADIA Facility:[facility] Start: 01-26-2022 ambulatory MARIANELA SADIA Facility:[facility] Start: 01-25-2022 End: 01-26-2022 ambulatory MARIANELA SADIA Facility:[facility] Start: 01-12-2022 End: 01-13-2022 ambulatory MARIANELA SADIA Facility:[facility] Procedures Date Procedure Procedure Detail Performing Clinician Start: 05-13-2025 Hemoglobin glycosylated a1c Lela Solorzano CFO Work Phone: Start: 04-04-2025 CA ECHO DOPPLER COMPLETE Generic Externa l Data Provider Start: 04-02-2025 CT CHEST WO CON Generic External Javad a Provider Start: 04-02-2025 ALL BASIC METABOLIC PANEL Generic [employer] Data Provider Start: 04-02-2025 ALL PRO BNP Generic External Javad a Provider Start: 03-12-2025 ALL CBC WITH AUTO DIFF Lela Solorzano CFO Work Phone: Start: 09-10-2024 ALL LUTEINIZING HORMONE Generic External Data Provider Start: 09-10-2024 ALL TESTOSTERONE Generic External Javad a Provider Start: 09-10-2024 [facility] ESTROGEN Generic External Javad a Provider Start: 09-10-2024 [facility] PROLACTIN Generic External Javad a Provider Start: 09-03-2024 ALL TESTOSTERONE Generic External Javad a Provider Start: 05-29-2024 Colonoscopy Chioma Hardy CFO Work Phone: Start: 05-29-2024 Colonoscopy ERWIN DANUTA Start: 04-08-2014 Colonoscopy Funmi RESENDIZ Cardiac catheterization Isma aeheather NILL History of tonsillectomy History of tonsillectomy Repair of umbilical hernia Adonay ichstar NILL Tonsillectomy and adenoidectomy Funmi NILL Plan of Treatment Date Care Activity Detail Author Start: 05-29-2034 Screening for malign ant neoplasm of colon [facility] Start: 05-27-2026 Glaucoma screening Diabetes: R etinopathy Screening [facility] Start: 05-19-2026 End: 05-19-2026 Patient encounter procedure 05/19/2026 11:00 AM EDT Office Visit [facility] [address] [place] [id number] Lela Solorzano, DEX [address] [place] [id number] [facility] Start: 03-12-2026 Urine screening for protein Diabetes: Urine Protein Screening [facility] Start: 02-10-2026 Pneumococcal Vaccine : 65+ Years (1 of 2 - PCV) Pneumococcal Vaccine: 65+ Years (1 of 2 - PCV) [facility] Comment on above: Postponed from 11/29 (Patient Refused) Start: 11-12-2025 Hemoglobin A1c measurement Maria G betes: Hemoglobin A1C [facility] Start: 09-03-2025 End: 09-03-2025 Patient encounter procedure [facility] [address] Start: 08-13-2025 Hemoglobin A1c measurement Maria G betes: Hemoglobin A1C [facility] Start: 08-13-2025 Patient referral [facility] Work Phone: Start: 08-13-2025 End: 08-13-2025 Patient encounter procedure 08/13/2025 9:40 AM EDT Office Visit [facility] [address] [place] [phone] Lela Solorzano NP [address] [place] [phone] [facility] Start: 07-28-2025 Influenza vaccination Influenz a Vaccine (Season Ended) [facility] Start: 05-23-2025 Medicare Annual Well ness (AWV) Medicare Annual Wellness (AWV) [facility] Start: 05-13-2025 End: 05-13-2025 Patient encounter procedure [facility] Comment on above: Encounter for subseq uent annual wellness visit (AWV) in Medicare patient (Primary Dx); Type 2 diabetes mellitus with other specified complication (HCC); Obstructive sleep apnea syndrome; Benign essential hypertension ; Coronary arteriosclerosis ; Morbid (severe) obesity due to excess calories ([facility]-H[facility]); Type 2 diabetes mellitus without complication, without long-term current use of insulin (HCC) Start: 02-10-2025 End: 02-10-2025 Patient encounter procedure 02/10/2025 9:30 AM EDT Office Visit [facility] [address] [place] [id number] Chioma Hardy NP [address] [place] [id number] [facility] Start: 01-31-2025 Urine screening for protein Diabetes: Urine Protein Screening [facility] Start: 01-02-2025 Influenza vaccination Influenza Vacc ine (#1) [facility] Comment on above: Postponed from 07/28 (Patient Refused) Start: 11-07-2024 End: 11-07-2024 Patient encounter procedure [facility] Comment on above: Arrived Start: 10-23-2024 End: 10-23-2024 Patient encounter procedure 10/23/2024 9:30 AM EST Office Visit [facility] [address] [place] [address] Chioma Hardy NP [address] [place] [address] [facility] Start: 09-04-2024 End: 09-04-2024 [facility] Comment on above: Arrived Start: 08-15-2024 End: 08-15-2024 Patient encounter procedure 08/15/2024 9:00 AM EDT Office Visit [facility] [address] [phone] [facility] Start: 08-03-2024 Hemoglobin A1c measurement Maria G betes: Hemoglobin A1C [facility] Start: 07-30-2024 End: 07-30-2024 Patient encounter procedure [facility] Comment on above: Mild cognitive impai rment Start: 07-28-2024 Influenza vaccination Influenza Vacc ine (#1) [facility] Start: 07-23-2024 End: 07-23-2024 Patient encounter procedure 07/23/2024 10:30 AM EDT Office Visit [facility] [address] [place] [address] Chioma Hardy, DEX [address] [place] [address] Arrived [facility] Comment on above: Arrived Start: 1961 Pneumococcal Vaccine : 65+ Years (1 of 2 - PCV) Pneumococcal Vaccine: 65+ Years (1 of 2 - PCV) [facility] Start: 1955 Screening for malign ant neoplasm of colon [facility] Patient Education Low back pain in adults [facility] Work Phone: Patient referral [facility] Work Phone: XR Lumbar spine 2 or 3 Views [facility] Immunizations Immunization Date Immunization Notes Care Provider Fa cility 09-28-2023 influenza virus vaccine, unspecified formulation Funmi NILL [facility] 09-28-2023 Influenza, High-dose Seasonal, Quadrivalent, Preservative Free Chioma Hardy CFO Work Phone: [facility] 10-23-2021 SARS-CoV-2 (COVID-19 ) mRNA-[address] [facility] 09-12-2021 influenza virus vaccine, unspecified formulation Tania Mariscal [facility] 09-12-2021 influenza, injectabl e, quadrivalent, preservative free Chioma Hardy CFO Work Phone: [facility] 03-06-2021 SARS-CoV-2 (COVID-19 ) mRNA-[address] [facility] 02-06-2021 SARS-CoV-2 (COVID-19 ) mRNA-[address] [facility] 08-27-2020 influenza virus vaccine, unspecified formulation Chioma Hardy CFO Work Phone: [facility] 08-26-2020 influenza virus vaccine, unspecified formulation Tania Mariscal [facility] 08-26-2020 influenza, injectabl e, quadrivalent, preservative free Chioma Hardy CFO Work Phone: [facility] 11-18-2019 influenza virus vaccine, unspecified formulation Tania Lue [facility] 11-18-2019 influenza, injectabl e, quadrivalent, contains preservative Chioma Hardy CFO Work Phone: [facility] 04-27-2019 zoster vaccine recombinant Chioma Hardy CFO Work Phone: [facility] 11-27-2018 zoster vaccine recombinant Chioma Hardy CFO Work Phone: [facility] 09-11-2018 zoster vaccine recombinant Chioma Hardy CFO Work Phone: [facility] 08-14-2018 influenza virus vaccine, unspecified formulation Tania Lue [facility] 08-14-2018 influenza, seasonal, injectable Chioma Hardy CFO Work Phone: [facility] 03-10-2018 zoster vaccine recombinant Chioma Hardy CFO Work Phone: [facility] 09-15-2017 influenza virus vaccine, unspecified formulation Tania Lue [facility] 09-15-2017 influenza, seasonal, injectable Chioma Hardy CFO Work Phone: [facility] 10-16-2015 influenza virus vaccine, unspecified formulation Tania Lue [facility] 10-16-2015 influenza, seasonal, injectable Chioma Hardy CFO Work Phone: [facility] 08-05-2013 influenza virus vaccine, unspecified formulation Tania Lue [facility] 08-05-2013 influenza, seasonal, injectable, preservative free Chioma Hardy CFO Work Phone: [facility] 08-09-2012 influenza virus vaccine, unspecified formulation Tania Lue [facility] 08-09-2012 influenza, seasonal, injectable, preservative free Chioma Hardy CFO Work Phone: [facility] 08-12-2011 influenza virus vaccine, unspecified formulation Tania Lue [facility] 08-12-2011 influenza, seasonal, injectable, preservative free Chioma Hardy CFO Work Phone: [facility] 07-28-2011 influenza virus vaccine, unspecified formulation Chioma Hardy CFO Work Phone: [facility] Payers Date Payer Category Payer Private Health Insurance [id number] 2022 Medicaid AETNA MEDICARE A DVANTAGE [id number] 2022 Medicare AETNA MEDICARE A DVANTAGE AETNA MEDICARE REPLACEMENT [id number] 2022-Present [address] [place] [address] [id number] 2022 Private Health Insurance [id number] 1959 Private Health Insurance [id number] 1959 Private Health Insurance [id number] 1959 Self-pay 1957 Unknown [id number] 2.16.840.1.258761.3.579.2. 593 1957 Unknown [id number] 2.16.840.1.441831.3.579.2. 593 1957 Unknown [id number] 2.16.840.1.393682.3.579.2. 593 1957 Unknown [id number] 2.16.840.1.669230.3.579.2. 593 1957 Unknown [id number] 2.16.840.1.893859.3.579.2. 727 1957 Unknown [id number] 2.16.840.1.891341.3.579.2. 727 1957 Unknown [id number] 2.16.840.1.854292.3.579.2. 727 1957 Unknown [id number] 2.16.840.1.533908.3.579.2. 727 1957 Unknown [id number] 2.16.840.1.721348.3.579.2. 727 1957 Unknown [id number] 2.16.840.1.244530.3.579.2. 727 1957 Unknown [id number] 2.16.840.1.779057.3.579.2. 727 1957 Unknown [id number] 2.16.840.1.973790.3.579.2. 727 1957 Unknown [id number] 2.16.840.1.601129.3.579.2. 727 1957 Unknown [id number] 2.16.840.1.067941.3.579.2. 9 1957 Unknown [id number] 2.16.840.1.247849.3.579.2. 1259 1957 Unknown [id number] 2.16.840.1.869093.3.579.2. 9 1957 Unknown [id number] 2.16.840.1.225495.3.579.2. 1259 1957 Unknown [id number] 2.16.840.1.274071.3.579.2. 1258 1957 Unknown [id number] 2.16.840.1.614442.3.579.2. 9 1957 Unknown [id number] 2.16.840.1.206365.3.579.2. 1258 1957 Unknown [id number] 2.16.840.1.877746.3.579.2. 9 1957 Unknown [id number] 2.16.840.1.243979.3.579.2. 1259 Social History Date Type Detail Facility Start: 04-16-2024 End: 07-08-2024 Tobacco smoking status Ex-smoker (finding) [facility] Tobacco smoking status Smokeless tobacco user within last [address] [facility] Start: 07-16-2024 End: 05-13-2025 Sex Assigned At Male [facility] History of tobacco use Current smoker [facility] [...] Chews Tobacco [facility] Start: 07-23-2024 End: 05-13-2025 Alcoholic beverage intake Lifetime non-drinker (finding) [facility] Do you belong to any clubs or organizations such as buddhist groups, unions, fraternal or athletic groups, or [...] at Not on file [facility] How often do you nee d to have someone help you when you read instructions, pamphlets, or other written material from your doctor or pharmacy [SILS] Never [facility] Sexual Orientation [facility] Start: 06-24-2010 Sex Male (finding) [facility] if ever [facility] Work Phone: Start: 1955 Sex Assigned At Male F [facility] Goals Date Patient Goal Desired Activity /State Personal health goal Functional Status Date Assessment Result Facility 05-13-2025 Patient Health Quest ionnaire 2 item (PHQ-2) [Reported] [facility] 12-18-2024 Functional Status N/A [facility] 08-28-2024 Functional Status N/A [facility] 04-16-2024 Functional Status N/A [facility] General Surgery [facility] Clinical Notes 04-16-2024 to 06-25-2025 Note Date & Type Note Facility 06-25-2025 Evaluation note Diagnosis Onset Date Resolution Hypersomnia deleted June 25 1:16pm Obesity deleted June 25 1:16pm ZEN[facility] (obstructive sleep apnea) deleted June 25, 2025 1:16pm Snoring deleted June 25 1:16pm CAD in [place] artery acute Sept ember 2024 9:29am Chronic lower back pain acute S eptember 2024 9:29am Essential hypertension acute Se ptember 2024 9:29am GERD without esophagitis acute August 13, 2025 9:29am Morbid obesity due to excess calories acute August 13, 2025 9:29am ZENON (obstructive sleep apnea) acute August 13, 2025 9:29am Type 2 diabetes mellitus without complication, without long-term current us acute July 282024 9:29am [facility] Work Phone: [phone] 852-631306-17-2025 History of Present illness Narrative* JEREMIAH ABRAMS - 05/13/2025 10:00 AM EDT Pt is needing refills of his medications * Lela Solorzano NP - 05/13/2025 10:00 AM EDT Images from the original note were not included. Funmi Julio is a 69 y.o. 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, Urologist, Neurologist for ZENON HCPOA/Living Will: no Concerns: SUBJECTIVE: MEDICATIONS: Current Outpatient Medications Medication Instructions albuterol HFA (Ventolin HFA) 90 mcg/act inhaler 2 puffs, Inhalation, Every 4 hours PRN amLODIPine (NORVASC) 10 mg, Oral, Daily anastrozole (ARIMIDEX) 1 mg, Weekly aspirin (ASPIRIN) 81 mg, Oral, Daily atorvastatin (LIPITOR) 40 mg, Oral, Nightly fexofenadine (LAMAR ALLERGY) 180 mg, Oral, Daily isosorbide mononitrate ER (IMDUR) 60 mg, Oral, Daily lisinopril-hydroCHLOROthiazide 20-12.5 MG tablet 1 tablet, Oral, Daily metFORMIN (GLUCOPHAGE) 850 mg, Oral, 2 times daily with meals metoprolol succinate XL (TOPROL-XL) 100 mg, Oral, Daily RT omeprazole (PRILOSEC) 20 mg, Oral, Nightly Ozempic (1 MG/DOSE) 1 mg, Subcutaneous, Weekly PARoxetine (PAXIL) 40 mg, Oral, Daily spironolactone (ALDACTONE) 12.5 mg, Daily RT ALLERGIES: Allergies Allergen Reactions Oxycodone Hives REVIEW OF SYMPTOMS: Review of Systems Constitutional: Negative for activity change, appetite change and unexpected weight change. HENT: Negative for ear pain, nosebleeds, sneezing, trouble swallowing and voice change. Eyes: Negative for pain, discharge and visual disturbance. Respiratory: Negative for apnea, chest tightness and wheezing. Cardiovascular: Negative for leg swelling. Gastrointestinal: Negative for abdominal distention, blood in stool, constipation and diarrhea. Genitourinary: Negative for decreased urine volume, difficulty urinating, dysuria and hematuria. Skin: Negative for color change. Neurological: Negative for dizziness, tremors and seizures. Psychiatric/Behavioral: Negative for agitation, decreased concentration, hallucinations, self-injury and suicidal ideas. The patient is not nervous/anxious. Hematological: Negative for adenopathy. Does not bruise/bleed easily. Endocrine: Negative for cold intolerance, heat intolerance, polydipsia and polyuria. Allergic/Immunologic: Negative for environmental allergies and food allergies. PAST MEDICAL HISTORY Past Medical History: Diagnosis Date Chronic low back pain CVD (cardiovascular disease) Dyslipidemia Encounter for long-term (current) use of medications Essential hypertension, benign Gastroesophageal reflux disease Hyperlipidemia Low back pain Major depressive disorder, recurrent episode, mild Obesity with body mass index (BMI) of 30.0 to 39.9 Past Surgical History: Procedure Laterality Date TONSILLECTOMY Adenoidectomy UMBILICAL HERNIA REPAIR family history includes Cancer in his brother and sister; Diabetes in his mother; Heart attack in his brother; Heart disease in his brother; Hypertension in his brother and sister. OBJECTIVE: Visit Vitals BP 116/82 (BP Location: Left arm, Patient Position: Sitting, BP Cuff Size: Large adult) Pulse 51 Temp 96.7 F (Temporal) Resp 20 Wt 319 lb 3.2 oz SpO2 94% BMI 43.29 kg/m Smoking Status Former BSA 2.71 m Physical Exam Vitals and nursing note reviewed. Constitutional: Appearance: Normal appearance. HENT: Head: Normocephalic. Right Ear: External ear normal. Left Ear: External ear normal. Nose: Nose normal. Mouth/Throat: Mouth: Mucous membranes are moist. Pharynx: Oropharynx is clear. Eyes: Extraocular Movements: Extraocular movements intact. Conjunctiva/sclera: Conjunctivae normal. Cardiovascular: Rate and Rhythm: Normal rate and regular rhythm. Pulses: Normal pulses. Heart sounds: Normal heart sounds. Pulmonary: Effort: Pulmonary effort is normal. Breath sounds: Normal breath sounds. Abdominal: General: Bowel sounds are normal. Palpations: Abdomen is soft. Musculoskeletal: Cervical back: Neck supple. Skin: General: Skin is warm and dry. Capillary Refill: Capillary refill takes 2 to 3 seconds. Neurological: General: No focal deficit present. Mental Status: He is alert. Psychiatric: Mood and Affect: Mood normal. Behavior: Behavior normal. Thought Content: Thought content normal. Judgment: Judgment normal. ASSESSMENT AND PLAN: No follow-ups on file. Problem List Items Addressed This Visit Benign essential hypertension (Chronic) Please check blood pressure daily and record DASH diet Limit caffeine Take medication as directed Contact office if chest pain, pressure, dizziness, shortness of breath, swelling legs Recommend slow position changes Current meds: amlodipine, imdur, demarco/hydrochlorothiazide, b denice Coronary arteriosclerosis Current meds: statin, imdur, demarco/hydrochlorothiazide, b denice, asa Cardiology: [facility] Type 2 diabetes mellitus without complication, without long-term current use of insulin (HCC) (Chronic) Check blood sugars daily, notify if <70 or >200. Take medications (pills or insulin) as directed. Monitor for s/s of hypoglycemia (sweaty, dizziness, nausea, vomiting, or shakiness). Watch for increase in thirst, urination, or appetite. Inspect feet frequently monitoring for open wounds , andalso recommend yearly eye exam. Pt should attempt to remain as physically active as chronic conditions allow, as well as trying to follow a diet low in carbohydrates, and simple sugars. Current meds: metformin, asa, statin, demarco/hydrochlorothiazide, ozempic A1c: 7.7% 05/13/25 7.3% 02/10/25 Relevant Orders POCT glycosylated hemoglobin (Hb A1C) docked device Morbid (severe) obesity due to excess calories ([facility]) Discussed with patient their BMI (actual, verses recommended). We have also discussed lifestyle modifications: attempts to perform physical activity as chronic conditions allow, also to monitor dietary intake: increasing protein/fruits/veggies and lowering carb intake (unless contraindicated). Limit sodas, juices, and sugary drinks. Obstructive sleep apnea syndrome You have a diagnosis of obstructive sleep [...] that supplies your machine and tubing/filters etc: [facility] Doctor that manages your ZENON: Dr Og Type 2 diabetes mellitus with other specified complication (HCC) HTN, CAD, ED Encounter for subsequent annual wellness visit (AWV) in Medicare patient - Primary Reviewed Ht/Wt/BMI Recommend eye exam yearly Recommend dental exams twice a year Balance work/leisure activities Exercises is recommended most days of the week (appropriate as chronic conditions allow) Follow up yearly and prn * Lela Solorzano NP - 05/13/2025 6:17 AM EDTAssociated Problem(s): Encounter for subsequent annual wellness visit (AWV) in Medicare patient Reviewed Ht/Wt/BMI Recommend eye exam yearly Recommend dental exams twice a year Balance work/leisure activities Exercises is recommended most days of the week (appropriate as chronic conditions allow) Follow up yearly and prn * Lela Solorzano NP - 05/13/2025 6:16 AM EDTAssociated Problem(s): Type 2 diabetes mellitus without complication, without long-term current useof insulin (HCC) Check blood sugars daily, notify if <70 or >200. Take medications (pills or insulin) as directed. Monitor for s/s of hypoglycemia (sweaty, dizziness, nausea, vomiting, or shakiness). Watch for increase in thirst, urination, or appetite. Inspect feet frequently monitoring for open wounds , andalso recommend yearly eye exam. Pt should attempt to remain as physically active as chronic conditions allow, as well as trying to follow a diet low in carbohydrates, and simple sugars. Current meds: metformin, asa, statin, demarco/hydrochlorothiazide, ozempic A1c: 7.7% 05/13/25 7.3% 02/10/25 * Lela Solorzano NP - 05/13/2025 6:16 AM EDTAssociated Problem(s): Type 2 diabetes mellitus with other specified complication (HCC) HTN, CAD, ED * Lela Solorzano NP - 05/13/2025 6:16 AM EDTAssociated Problem(s): Morbid (severe) obesity due to excess calories ([facility]-HCC) Discussed with patient their BMI (actual, verses recommended). We have also discussed lifestyle modifications: attempts to perform physical activity as chronic conditions allow, also to monitor dietary intake: increasing protein/fruits/veggies and lowering carb intake (unless contraindicated). Limit sodas, juices, and sugary drinks. * Lela Solorzano NP - 05/13/2025 6:15 AM EDTAssociated Problem(s): Coronary arteriosclerosis Current meds: statin, imdur, demarco/hydrochlorothiazide, b denice, asa [facility] * Lela Solorzano NP - 05/13/2025 6:15 AM EDTAssociated Problem(s): Benign essential hypertension Please check blood pressure daily and record DASH diet Limit caffeine Take medication as directed Contact office if chest pain, pressure, dizziness, shortness of breath, swelling legs Recommend slow position changes Current meds: amlodipine, imdur, demarco/hydrochlorothiazide, b denice * Lela Solorzano NP - 05/13/2025 6:15 AM EDTAssociated Problem(s): Obstructive sleep apnea syndrome You have a diagnosis of obstructive sleep [...] Doctor that manages your ZENON: Dr Og documented in this encounterSaint [facility]'s [id number] Instructions* Patient Instructions* Lela Solorzano NP - 05/13/2025 10:[address] Og's office for an appointment: [phone] documented in this encounterSaint John's [id number] NotePatient Education Urology Hypogonadism, Male Male hypogonadism is [...] Follow these instructions at home: ??? Take khku-xqa-vuwgnha and prescription medicines only as told by your health care provider. ??? Eat foods that are high in fiber, such as beans, whole grains, and fresh fruits and vegetables.Limit foods that are high in fat and [...] sure you discuss any (more content not included)...[facility]04-18-2025 NoteUT Cardiology - [facility] Subjective Funmi Julio is a 69 y.o. year old male patient being seen for 1 year follow up. Patinet denies chest pain, or leg swelling . Patient complains of SOB, dyspnea with exertion, lower back pain. Patient had recent labs at [facility] on 03/12/2025 Patient Active Problem List Diagnosis Acute sinusitis Anemia Benign essential hypertension Coronary arteriosclerosis Cough Depressive disorder Hyperlipidemia Hypertensive disorder Impaired fasting glucose Neck sprain Pain in joint involving ankle and foot Precordial pain Solitary pulmonary nodule Chronic GERD Constipation Dyslipidemia Obesity (BMI 30-39.9) Rectal bleeding Sleep apnea Type 2 diabetes mellitus without complication, without long-term current use of insulin (CMS/HCC) Acquired buried penis Calcified lymph nodes Cerumen [...] followed by his primary care physician and family preservation officer. Today he reports that he has been [...] tablet, Chew 81 mg in the morning., Di (more content not included)...[facility]01-22-2025 Hospital Discharge instructions Patient Education 12/18/2024 12:03:33 [...] older. This is the main cause of thiscondition. Use of medicines, such as antidepressants, steroids, [...] therapy. Follow these instructions at home: Take isse-hpu-jyflyxz and prescription medicines only as told by [...] for prostate cancer before putting you on testosteronetherapy. This information is not intended to replace advice given to you by your health care provider. Make sure you discuss any questions you have with your health care provider. Document Revised: 07/15/2021 Document Reviewed: 07/15/2021 [employer] Patient Education 2023 [employer]. Follow Up Care 08/28/2024 11:12:51 With:Davey PARISH, ODALYS Arrieta, URO Address: When:Within 3 Month(s) Comments:[facility] 01-22-2025 NotePatient Education Urology Hypogonadism, Male Male hypogonadism is [...] Follow these instructions at home: ??? Take ynes-xxk-dxbxaia and prescription medicines only as told by your health care provider. ??? Eat foods that are high in fiber, such as beans, whole grains, and fresh fruits and vegetables.Limit foods that are high in fat and [...] sure you discuss any (more content not included)...[facility]12-12-2024 History of Present illness Narrative* Chioma Hardy NP - 11/07/2024 9:48 AM ESTAssociated Problem(s): BMI 40.0-44.9, adult (CMS/[facility]) Discussed with patient their BMI (actual, verses recommended). We have also discussed lifestyle modifications: attempts to perform physical activity as chronic conditions allow, also to monitor dietary intake: increasing protein/fruits/veggies and lowering carb intake (unless contraindicated). Limit sodas, juices, and sugary drinks. Also discussed oral medications that can be utilized for weight loss, as well as surgical options for weight loss. * Chioma Hardy NP - 11/07/2024 9:47 AM ESTAssociated Problem(s): HTN (hypertension) (CMS/[facility]) Currently taking amlodipine 10mg Isosorbide Lisinopril-hydrochlorothiazide Metoprolol Does not check BP at home; Denies orthostatic changes, dizziness, cough, shortness of breath, swelling in extremities. Continue current regimen. Given BP log, advised pt to record BP and bring log back with them to next visit. * Chioma Hardy NP - 11/07/2024 9:47 AM ESTAssociated Problem(s): Hyperlipidemia (CMS/HCC) Currently taking Atorvastatin 40mg Denies any myalgias. Continue current regimen. * Chioma Hardy NP - 11/07/2024 9:47 AM ESTAssociated Problem(s): Type 2 diabetes mellitus without complication, without long-term current useof insulin (CMS/HCC) Currently taking Metformin Semaglutide Has been tolerating [...] persistent hypoglycemia/hyperglycemia on home glucose monitoring noted. * Chioma Hardy NP - 11/07/2024 9:30 AM EST Images from the original note were not included. Subjective Patient ID: Funmi Julio is a 68 y.o. male who presents for Follow-up. HPI Specialists: Neurology- Dr. Lucero Pulmonology- Dr. Morrison Cardiology- Dr. Gao HTN: Currently taking amlodipine 10mg Isosorbide Lisinopril-hydrochlorothiazide [...] R ALBUMIN GLOBULIN RATIO 0.8 Resulting Agency [facility] DMII: Currently taking Metformin Semaglutide Has [...] feet frequently monitoring for open wounds , andalso recommend yearly eye exam. Pt should attempt [...] Neurological: Negative for dizziness, tremors, syncope, weakness, light- headedness and headaches. Psychiatric/Behavioral: Negative for decreased concentration and suicidal ideas. The patient is notnervous/anxious. Hematological: Does not bruise/bleed easily. Endocrine: Negative [...] omeprazole (PriLOSEC) [address] capsule Hyperlipidemia (CMS/HCC) Currently taking Atorvastatin 40mg Denies any myalgias. Continue current regimen. Persistent depressive disorder (CMS/HCC) (Chronic) Relevant Medications PARoxetine (Paxil) 40 MG tablet Type 2 diabetes mellitus without complication, without long-term current use of insulin ([facility]) -Primary (Chronic) Currently taking Metformin Semaglutide Has been [...] metFORMIN (Glucophage) 850 MG tablet HTN (hypertension) ([facility]) Currently taking amlodipine 10mg Isosorbide Lisinopril-hydrochlorothiazide Metoprolol [...] obstructive pulmonary disease based on initial evaluation ([facility]) Relevant Medications albuterol HFA (Ventolin HFA) 90 mcg/act inhaler fexofenadine (Lamar Allergy) 180 MG tablet BMI 40.0-44.9, adult ([facility]) Discussed with patient their BMI (actual, verses [...] Diagnoses Acute bronchitis with wheezing Hyperlipidemia, unspecified ([facility]) Relevant Medications atorvastatin (Lipitor) 40 MG tablet Essential (primary) hypertension (CMS/HCC) Relevant Medications lisinopril-hydroCHLOROthiazide 20-12.5 MG tablet Major depressive disorder, recurrent, mild (HCC) (CMS/HCC) documented in this [facility]12-05-2024 Telephone encounter Note* Telephone Encounter - Krystal Dickson - 10/31/2024 11:28 AM EST Patient states he did not know that you lowered his meds to 1 time a day instead of 2 and he's running out of lisinopril now [facility] [id number] Miscellaneous Notes* Telephone Encounter - Krystal Dickson - 10/31/2024 11:28 AM EST Patient states he did not know that you lowered his meds to 1 time a day instead of 2 and he's running out of lisinopril now documented in this [facility]10-09-2024 History of Present illness Narrative* Tania Lucero DO - 09/04/2024 3:30 PM EDT Images from the original note were not included. Chief complaint: Cognitive impairment Subjective Funmi Julio, 68 y.o., male Patient is here for [...] reflexes are 2+ and symmetric throughout. Coordination: Ihuunq-cy-jlex testing and rapid alternating movements are normal Gait: Normal Review and summary of old records: Neuropsych analysis at [facility] on 08/15/2024: Current neuropsych eval demonstrates well-preserved cognition and memory. No compelling evidence of neurodegenerative type condition. No otherorganic etiology. Findings completely normal for age. Minimal psychiatric contribution. MRI of the brain on 07/15/2024: No acute abnormality. No abnormal postcontrast enhancement. chronicmicrovascular ischemic disease. Vitamin B12 and thyroid stimulating hormone on 07/15/2024: Normal Vitamin B12 level on 07/12/2022: Normal Assessment/Plan Diagnoses and all orders for this visit: Cognitive impairment It is my impression that the patient has subjective complaints of memory loss. A factor that may beinfluencing this is the patient's right more recent history of relatively lower oxygenation status.He has seen pulmonology for this. Rony cognitive assessment was . MRI of the brain does show some [...] plan, and return instructions documented in this encounterSaint John's [id number] Hospital Discharge instructions Patient Education 08/28/2024 11:12:34 Erectile Dysfunction Erectile Dysfunction Erectile dysfunction (ED) is the inability to get or keep an erection in order to have sexual intercourse. ED is considered a symptom of an underlying disorder and is not considered a disease. ED mayinclude: Inability to get an erection. Lack of [...] back or pelvic injuries, multiple sclerosis, Parkinson's disease,spinal cord injury, and stroke. Certain medicines, such [...] or the penis may be too curved toallow for intercourse. Never having nighttime or morning [...] penis. During this procedure, a blood vessel froma different part of the body is placed into the penis to allow blood to flow around (bypass) damaged or blocked blood vessels. Lifestyle changes, such as exercising more, losing weight, and quitting smoking. Follow these instructions at home: Medicines Take tfga-aux-wclahcr and prescription medicines only as told by your health care provider. Do not increase the dosage without first discussing it with your health care provider. If you are using self-injections, do injections as directed by your health care provider. Make sureyou avoid any veins that are on the surface of the penis. After giving an injection, apply pressureto the injection site for 5 minutes. Talk [...] you need help quitting, ask your health careprovider. Before using a vacuum pump, read the instructions that come with the pump and discuss any questionswith your health care provider. Keep all follow-up [...] provider. Document Revised: 02/09/2022 Document Reviewed: 02/09/2022 [employer] Patient Education 2023 [employer]. Follow Up Care 08/27/2024 13:33:54 With:Davey PARISH, Tania Angel, URL, [facility] Address: [address], [place] [address]- [phone] When: Unknown Comments:6 mos (possible T level) [facility] 10-02-2024 NotePatient Education Urology Erectile Dysfunction Erectile dysfunction (ED) is the inability to get or keep an erection in order to have sexual intercourse. ED is considered a symptom of an underlying disorder and is not considered a disease. ED mayinclude: ? Inability to get an erection. ? [...] The tube is inserted into the opening atthe tip of the penis, which is the opening of the urethra. A tiny pellet of medicine is put in the urethra. The pellet dissolves and enhances erectile function. This is also called MUSE (medicated urethral system for erections) therapy. ? Vacuum pump. This is a pump with a ring on it. The pump and ring are placed on the penis and usedto create pressure that helps the penis become [...] these instructions at home: Medicines ? Take btwm-fhu-ebbztob and prescription medicines only as told by [...] to prevent headaches while taking ED medicines. Thesemedicines may cause a sudden headache due to the increase in blood flow in your body. General instructions ? Exercise regularly, as directed by your health care provider. Work with your health care providerto lose weight, if needed. ? Do not use any products that contain nicotine or tobacco. These (more content not included)...[facility]09-19-[facility] History of Present illness Narrative* Deshawn Terrell, PhD - 08/15/2024 9:00 AM EDT Images from the original note were not included. Neuropsychology Deshawn Terrell, PhD NEUROPSYCHOLOGICAL EVALUATION Funmi Julio is a [...] driving. Physically active completing yardwork and maintaining histhree-quarter acre garden. Socially experiencing less drive/motivation. Mostly homebody since retiring but does visit neighbors 1X/week. Overall sleeping well and wears CPAP nightly. Records indicate recently detected low oxygen which may be contributing to above presentation. Follows with pulmonology now. Pain complaints include chronic low back pain. Prior neurological history includes large chunk of ice falling from 75 feet onto p atient's head resulting in LOC but no residual [...] has helped curb his cravings. Reformed smoker. [place] language [place]. Completed an associate's degree in automotive work. 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 Also has long history of chemical exposure [...] design >16th %ile. Motor/Speed of Processing: Right-handed. Infantry Weapons Officer strength 16th %ile with right- hand, 21st %ile with left. Speeded graphomotor transcoding [...] 50th %ile. Recognition discriminability 50th %ile. Forced-choice 16/16. Immediate recall for prose passages 18th %ile, delayed 7th %ile. Recognition 10- 16th %ile. Immediate recall for a variety of geometric mgpxwha39sd %ile, delayed 82nd %ile. Recognition 51-75th %ile. [...] lists, date books, calendars, and pocket-size recorders forinformation that must be remembered. A smartphone is [...] of this individual. Please contact me with [employer] at [phone]. documented in this encounterSaint John's [id number] History of Present illness Narrative* Deshawn Terrell, PhD - 07/30/2024 11:00 AM EDT Images from the original note were not included. Deshawn Terrell, PhD NEUROBEHAVIORAL STATUS EXAMINATION Funmi Julio is [...] driving. Physically active completing yardwork and maintaining histhree-quarter acre garden. Socially experiencing less drive/motivation. Mostly homebody since retiring but does visit neighbors 1X/week. Overall sleeping well and wears CPAP nightly. Records indicate recently detected low oxygen which may be contributing to above presentation. Files with pulmonology now. Pain complaints include chronic low back pain. Prior neurological history includes large chunk of ice falling from 75 feet onto pat samantha's head resulting in LOC but no residual [...] consumption typically averaging 24 beers/week. Consuming much lesssince being started on all as epic as this has helped curb his cravings. Reformed smoker. [place] language [place]. Completed an Associates degree in automotive work. 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 Also has long history of chemical exposure [...] of this individual. Please contact me with [employer] at [phone]. documented in this encounterSaint John's [id number] History of Present illness Narrative* Chioma Hardy NP - 07/23/2024 12:19 PM EDTAssociated Problem(s): Chronic GERD Taking Omeprazole 20mg Has been taking for 20 years. Feels symptoms are well controlled at this time. Declines EGD at this time- will revisit at next OV. Continue with [facility]. * Chioma Hardy NP - 07/23/2024 12:18 PM EDTAssociated Problem(s): Mild cognitive impairment Following with Neurology- Sees Dr. Lucero and was referred to additional specialisat @ [facility] Neurology- Appointment on 07/30/2024; MRI completed on 07/15/2024. * Chioma Hardy NP - 07/23/2024 12:17 PM EDTAssociated Problem(s): Suspected chronic obstructive pulmonary disease based on initial evaluation ( [facility]) Follows Dr. Morrison with Pulmonology Feels symptoms are well managed currently. Continue current regimen. * Chioma Hardy NP - 07/23/2024 12:16 PM EDTAssociated Problem(s): Acquired buried penis Reports dysuria Has difficulty with urinary flow Report penis is withdrawn internally. Has hard time initiating and controlling flow Was taking viagra once per month to help, has never seen urology. * Chioma Hardy NP - 07/23/2024 12:15 PM EDTAssociated Problem(s): Benign essential hypertension (CMS/HCC) Follows Cardiology- Dr. Gao Isosorbide 60mg Lisinopril- hydrochlorothiazide 20-12.5mg Amlodipine 10mg Denies orthostatic changes Admits: Edema to BLE 2-3 times per week Continue current regimen * Chioma Hardy NP - 07/23/2024 12:14 PM EDTAssociated Problem(s): Solitary pulmonary nodule Follows Pulmonology- Dr. Morrison * Chioma Hardy NP - 07/23/2024 11:06 AM EDTAssociated Problem(s): Hyperlipidemia (CMS/HCC) Atorvastatin 40mg Denies myalgias Continue Lipitor * Chioma Hardy NP - 07/23/2024 11:02 AM EDTAssociated Problem(s): Type 2 diabetes mellitus without complication, without long-term current useof insulin (CMS/HCC) Most recent labs: hemoglobin A1C [...] persistent hypoglycemia/hyperglycemia on home glucose monitoring noted. * Chioma Hardy NP - 07/23/2024 10:30 AM EDT Images from the original note were not included. Subjective Patient ID: Funmi Julio is a 68 y.o. male who presents for Follow-up. HPI Following with Neurology- Sees Dr. Lucero and was referred to additional specialisat @ [facility]- Appointmnet on 07/30/2024; Follows Pulmonology- Dr. Morrison Follows Cardiology- Dr. Gao HTN: Isosorbide 60mg Lisinopril- hydrochlorothiazide 20-12.5mg Amlodipine [...] R ALBUMIN GLOBULIN RATIO 0.8 Resulting Agency [facility] DMII: Most recent labs: hemoglobin A1C 6.3% Down from 6.5%. 0 Result Notes Component Ref Range & Units 8 d ago 5 mo ago GLYCOHEMOGLOBIN A1C 4.5 - 6.2 % 6.3 High 6.5 High CM Comment: ADA RECOMMENDED LIMIT 4.0 - 6.0 ADA THERAPEUTIC TARGET < 7.0 ACTION SUGGESTED > 7.0 ESTIMATED AVERAGE GLUCOSE mg/dL 134 140 Resulting Agency [facility] Average FSBS range from patient does not [...] Neurological: Negative for dizziness, tremors, syncope, weakness, light- headedness and headaches. Psychiatric/Behavioral: Negative for decreased concentration and suicidal ideas. The patient is notnervous/anxious. Hematological: Does not bruise/bleed easily. Endocrine: Negative [...] essential hypertension (CMS/HCC) (Chronic) Follows Cardiology- Dr. Goa Isosorbide 60mg Lisinopril- hydrochlorothiazide 20-12.5mg Amlodipine 10mg [...] Lipitor Solitary pulmonary nodule Follows Pulmonology- Dr. Morrison Type 2 diabetes mellitus without complication, without long-term current use of insulin ([facility]) -Primary (Chronic) Most recent labs: hemoglobin A1C 6.3% [...] obstructive pulmonary disease based on initial evaluation ([facility]) Follows Dr. Morrison with Pulmonology Feels symptoms are well managed currently. Continue current regimen. Mild cognitive impairment Following with Neurology- Sees Dr. Lucero and was referred to additional specialisat @ [facility] Neurology- Appointment on 07/30/2024; MRI completed on [...] HFA) 90 mcg/act inhaler documented in this encounterSaint John's [id number] Instructions* Patient Instructions* Chioma Hardy NP - 07/23/2024 10:30 AM [...] feet frequently monitoring for open wounds , andalso recommend yearly eye exam. Pt should attempt to remain as physically active as chronic conditions allow, as well as trying to follow a diet low in carbohydrates, and simple sugars. documented in this encounterSaint John's [id number] NoteChief Complaint consultation for colonoscopy HPI Staff 68 [...] denies asa or NSAID use, no SBE prophylaxis;abdominal operations significant for umbilical hernia repair, last [...] swallowing difficulties, no hearing loss, no ear infection(s),no nose bleeds. Cardiovascular: normal blood pressure, no [...] and Brother. Primary oscar (more content not included)...[facility] HospitalComment on above:Result Comment: Electronically Signed By: MARTÍN PARISH, Funmi Suazo\Date and Time Signed: 04/16/24 16:19 EDTEvaluation + Plan note No data available for this section [facility] Evaluation + Plan note Future Appointments Appointment Date:08/28/2024 10:15:00 AM Scheduled Provider:Tania Mariscal MD Location:[facility] Appointment Type:URO New Patient [facility] evaluation + Plan note Future Appointments Appointment Date:03/05/2025 09:45:00 AM Scheduled Provider:Tania Mariscal MD Location:[facility] Appointment Type:URO Office Visit Diagnostic Tests Pending * Testosterone Level Total 08/28/24 [facility] evaluation + Plan note Future Appointments Appointment Date:03/12/2025 08:30:00 AM Scheduled Provider: Location:[facility] Appointment Type:URO Nurse Visit Appointment Date:03/19/2025 10:00:00 AM Scheduled Provider:Tania Mariscal MD Location:[facility] Appointment Type:URO Office Visit Future Scheduled Tests Laboratory* PSA Total 03/18/25 * Hematocrit 03/18/25 * Testosterone Level Total 03/18/25 [facility] evaluation + Plan note Future Appointments Appointment Date:03/19/2025 10:00:00 AM Scheduled Provider:Tania Mariscal MD Location:[facility] Appointment Type:URO Office Visit Diagnostic Tests Pending * Testosterone Level Total 03/12/25 Future Scheduled Tests Laboratory* Hematocrit 03/18/25 [facility] Evaluation note* Diagnosis Cognitive impairment- Primary Unspecified persistent mental disorders due to conditions classified elsewhere [facility] Diagnosis Solitary pulmonary nodule- Primary Benign essential hypertension (CMS/HCC) Essential hypertension, benign Chronic GERD Type 2 diabetes mellitus without complication, without long-term current use of insulin ([facility]) Persistent depressive disorder ([facility]) Hyperlipidemia, unspecified hyperlipidemia type (CMS/HCC) Morbid (severe) obesity due to excess calories (E66.01) Primary hypertension (CMS/HCC) Unspecified essential hypertension Coronary arteriosclerosis (CMS/HCC) Coronary atherosclerosis of unspecified type of vessel, [place] or graft Obstructive sleep apnea syndrome Obstructive sleep apnea (adult) (pediatric) Suspected chronic obstructive pulmonary disease based on initial evaluation ([facility]) Skin mole Solitary pulmonary nodule- Primary Obstructive sleep apnea syndrome Obstructive sleep apnea (adult) (pediatric) Primary hypertension (CMS/HCC) Unspecified essential hypertension Type 2 diabetes mellitus without complication, without long-term current use of insulin (CMS/HCC) Hyperlipidemia, unspecified hyperlipidemia type (CMS/HCC) Type 2 diabetes mellitus without complication, without long-term current use of insulin (CMS/HCC)- Primary Mild cognitive impairment Mild cognitive impairment, so stated Primary hypertension (CMS/HCC) Unspecified essential hypertension Solitary pulmonary nodule Dyslipidemia (CMS/HCC) Other and unspecified hyperlipidemia Coronary arteriosclerosis (CMS/HCC) Coronary atherosclerosis of unspecified type of vessel, [place] or graft BMI 40.0-44.9, adult ([facility]) Type 2 diabetes mellitus without complication, without long-term current use of insulin ([facility])- Primary Benign essential hypertension (CMS/HCC) Essential hypertension, benign Chronic GERD Suspected chronic obstructive pulmonary disease based on initial evaluation ([facility]) Mild cognitive impairment Mild cognitive impairment, so stated Acute bronchitis with wheezing Mixed hyperlipidemia (CMS/HCC) Mixed hyperlipidemia Cerumen debris on tympanic membrane of both ears Solitary pulmonary nodule Acquired buried penis Essential (primary) hypertension ([facility]) Unspecified essential hypertension documented in this encounter [facility] HealthcareEvaluation note* Diagnosis Solitary pulmonary nodule- Primary Benign essential hypertension (CMS/HCC) Essential hypertension, benign Chronic GERD Type 2 diabetes mellitus without complication, without long-term current use of insulin ([facility]) Persistent depressive disorder (CMS/[facility]) Hyperlipidemia, unspecified hyperlipidemia type ([facility]) Morbid (severe) obesity due to excess calories (E66.01) Primary hypertension (CMS/HCC) Unspecified essential hypertension Coronary arteriosclerosis (CMS/[facility]) Coronary atherosclerosis of unspecified type of vessel, [place] or graft Obstructive sleep apnea syndrome Obstructive sleep apnea (adult) (pediatric) Suspected chronic obstructive pulmonary disease based on initial evaluation ([facility]) Skin mole Solitary pulmonary nodule- Primary Obstructive sleep apnea syndrome Obstructive sleep apnea (adult) (pediatric) Primary hypertension (CMS/[facility]) Unspecified essential hypertension Type 2 diabetes mellitus without complication, without long-term current use of insulin ([facility]) Hyperlipidemia, unspecified hyperlipidemia type ([facility]) Type 2 diabetes mellitus without complication, without long-term current use of insulin ([facility])- Primary Mild cognitive impairment Mild cognitive impairment, so stated Primary hypertension ([facility]) Unspecified essential hypertension Solitary pulmonary nodule Dyslipidemia ([facility]) Other and unspecified hyperlipidemia Coronary arteriosclerosis ([facility]) Coronary atherosclerosis of unspecified type of vessel, [place] or graft BMI 40.0-44.9, adult ([facility]) Type 2 diabetes mellitus without complication, without long-term current use of insulin ([facility])- Primary Benign essential hypertension ([facility]/HCC) Essential hypertension, benign Chronic GERD Suspected chronic obstructive pulmonary disease based on initial evaluation ([facility]) Mild cognitive impairment Mild cognitive impairment, so stated Acute bronchitis with wheezing Mixed hyperlipidemia ([facility]) Mixed hyperlipidemia Cerumen debris on tympanic membrane of both ears Solitary pulmonary nodule Acquired buried penis Type 2 diabetes mellitus without complication, without long-term current use of insulin ([facility])- Primary Mixed hyperlipidemia ([facility]) Mixed hyperlipidemia Primary hypertension ([facility]) Unspecified essential hypertension BMI 40.0-44.9, adult ([facility]) Acute bronchitis with wheezing Hyperlipidemia, unspecified ([facility]) Essential (primary) hypertension ([facility]/HCC) Unspecified essential hypertension Major depressive disorder, recurrent, mild (HCC) ([facility]) Major depressive disorder, recurrent episode, mild Chronic GERD Persistent depressive disorder ([facility]) Suspected chronic obstructive pulmonary disease based on initial evaluation ([facility]) documented in this encounter [facility] HealthcareEvaluation note* Diagnosis Solitary pulmonary nodule- Primary Benign essential hypertension ([facility]) Essential hypertension, benign Chronic GERD Type 2 diabetes mellitus without complication, without long-term current use of insulin ([facility]) Persistent depressive disorder ([facility]) Hyperlipidemia, unspecified hyperlipidemia type ([facility]) Morbid (severe) obesity due to excess calories (E66.01) Primary hypertension ([facility]) Unspecified essential hypertension Coronary arteriosclerosis ([facility]) Coronary atherosclerosis of unspecified type of vessel, [place] or graft Obstructive sleep apnea syndrome Obstructive sleep apnea (adult) (pediatric) Suspected chronic obstructive pulmonary disease based on initial evaluation ([facility]) Skin mole Solitary pulmonary nodule- Primary Obstructive sleep apnea syndrome Obstructive sleep apnea (adult) (pediatric) Primary hypertension ([facility]) Unspecified essential hypertension Type 2 diabetes mellitus without complication, without long-term current use of insulin ([facility]) Hyperlipidemia, unspecified hyperlipidemia type ([facility]) Type 2 diabetes mellitus without complication, without long-term current use of insulin ([facility])- Primary Mild cognitive impairment Mild cognitive impairment, so stated Primary hypertension ([facility]) Unspecified essential hypertension Solitary pulmonary nodule Dyslipidemia ([facility]) Other and unspecified hyperlipidemia Coronary arteriosclerosis ([facility]) Coronary atherosclerosis of unspecified type of vessel, [place] or graft BMI 40.0-44.9, adult ([facility]) Type 2 diabetes mellitus without complication, without long-term current use of insulin ([facility])- Primary Benign essential hypertension ([facility]) Essential hypertension, benign Chronic GERD Suspected chronic obstructive pulmonary disease based on initial evaluation ([facility]) Mild cognitive impairment Mild cognitive impairment, so stated Acute bronchitis with wheezing Mixed hyperlipidemia ([facility]) Mixed hyperlipidemia Cerumen debris on tympanic membrane of both ears Solitary pulmonary nodule Acquired buried penis Type 2 diabetes mellitus without complication, without long-term current use of insulin ([facility])- Primary Mixed hyperlipidemia ([facility]) Mixed hyperlipidemia Primary hypertension ([facility]) Unspecified essential hypertension BMI 40.0-44.9, adult ([facility]) Acute bronchitis with wheezing Hyperlipidemia, unspecified ([facility]) Essential (primary) hypertension ([facility]) Unspecified essential hypertension Major depressive disorder, recurrent, mild (HCC) ([facility]) Major depressive disorder, recurrent episode, mild Chronic GERD Persistent depressive disorder ([facility]) Suspected chronic obstructive pulmonary disease based on initial evaluation ([facility]) Type 2 diabetes mellitus without complication, without long-term current use of insulin ([facility]) [facility] Diagnosis Type 2 diabetes mellitus without complication, without long-term current use of insulin ([facility])- Primary Benign essential hypertension ([facility]) Essential hypertension, benign Chronic GERD Suspected chronic obstructive pulmonary disease based on initial evaluation ([facility]) Mild cognitive impairment Mild cognitive impairment, so stated Acute bronchitis with wheezing Mixed hyperlipidemia ([facility]) Mixed hyperlipidemia Cerumen debris on tympanic membrane of both ears Solitary pulmonary nodule Acquired buried penis documented [facility] Diagnosis Mild cognitive impairment- Primary Mild cognitive impairment, so stated Memory loss ZENON on CPAP Depression, unspecified depression type ([facility]) History of alcohol abuse Nondependent alcohol abuse, in remission documented in this [facility] Diagnosis Memory loss- Primary ZENON on CPAP Depression, unspecified depression type ([facility]) History of alcohol abuse Nondependent alcohol abuse, in remission documented in this [facility]* Diagnosis Type 2 diabetes mellitus without complication, without long-term current use of insulin ([facility]) documented [facility]* Diagnosis Solitary pulmonary nodule- Primary Benign essential hypertension Essential hypertension, benign Chronic GERD Type 2 diabetes mellitus without complication, without long-term current use of insulin ([facility]) Persistent depressive disorder Hyperlipidemia, unspecified hyperlipidemia type Morbid (severe) obesity due to excess calories (E66.01) Primary hypertension Unspecified essential hypertension Coronary arteriosclerosis Coronary atherosclerosis of unspecified type of vessel, [place] or graft Obstructive sleep apnea syndrome Obstructive sleep apnea (adult) (pediatric) Suspected chronic obstructive pulmonary disease based on initial evaluation ([facility]) Skin mole Solitary pulmonary nodule- Primary Obstructive sleep apnea syndrome Obstructive sleep apnea (adult) (pediatric) Primary hypertension Unspecified essential hypertension Type 2 diabetes mellitus without complication, without long-term current use of insulin ([facility]) Hyperlipidemia, unspecified hyperlipidemia type Type 2 diabetes mellitus without complication, without long-term current use of insulin ([facility])- Primary Mild cognitive impairment Mild cognitive impairment, so stated Primary hypertension Unspecified essential hypertension Solitary pulmonary nodule Dyslipidemia Other and unspecified hyperlipidemia Coronary arteriosclerosis Coronary atherosclerosis of unspecified type of vessel, [place] or graft BMI 40.0-44.9, adult ([facility]) Type 2 diabetes mellitus without complication, without long-term current use of insulin ([facility])- Primary Benign essential hypertension Essential hypertension, benign Chronic GERD Suspected chronic obstructive pulmonary disease based on initial evaluation ([facility]) Mild cognitive impairment Mild cognitive impairment, so stated Acute bronchitis with wheezing Mixed hyperlipidemia Mixed hyperlipidemia Cerumen debris on tympanic membrane of both ears Solitary pulmonary nodule Acquired buried penis Type 2 diabetes mellitus without complication, without long-term current use of insulin ([facility])- Primary Mixed hyperlipidemia Mixed hyperlipidemia Primary hypertension Unspecified essential hypertension BMI 40.0-44.9, adult ([facility]) Acute bronchitis with wheezing Hyperlipidemia, unspecified Essential (primary) hypertension Unspecified essential hypertension Major depressive disorder, recurrent, mild Major depressive disorder, recurrent episode, mild Chronic GERD Persistent depressive disorder Suspected chronic obstructive pulmonary disease based on initial evaluation ([facility]) Benign essential hypertension- Primary Essential hypertension, benign Pulmonary fibrosis, unspecified ([facility]) Morbid (severe) obesity due to excess calories ([facility]) Body mass index (BMI) 40.0-44.9, adult ([facility]) Obstructive sleep apnea syndrome Obstructive sleep apnea (adult) (pediatric) Coronary arteriosclerosis Coronary atherosclerosis of unspecified type of vessel, [place] or graft Chronic GERD Type 2 diabetes mellitus without complication, without long-term current use of insulin ([facility]) Mixed hyperlipidemia Mixed hyperlipidemia Episode of recurrent major depressive disorder, unspecified depression episode severity Mild cognitive impairment Mild cognitive impairment, so stated Prostate cancer screening Special screening for malignant neoplasm of prostate Primary hypertension Unspecified essential hypertension Encounter for subsequent annual wellness visit (AWV) in Medicare patient- Primary Type 2 diabetes mellitus with other specified complication (HCC) Obstructive sleep apnea syndrome Obstructive sleep apnea (adult) (pediatric) Benign essential hypertension Essential hypertension, benign Coronary arteriosclerosis Coronary atherosclerosis of unspecified type of vessel, [place] or graft Morbid (severe) obesity due to excess calories ([facility]) Type 2 diabetes mellitus without complication, without long-term current use of insulin ([facility]) Primary hypertension Unspecified essential hypertension Hyperlipidemia, unspecified Suspected chronic obstructive pulmonary disease based on initial evaluation ([facility]) documented in this encounter [facility]* Diagnosis Solitary pulmonary nodule- Primary Benign essential hypertension Essential hypertension, benign Chronic GERD Type 2 diabetes mellitus without complication, without long-term current use of insulin ([facility]) Persistent depressive disorder Hyperlipidemia, unspecified hyperlipidemia type Morbid (severe) obesity due to excess calories (E66.01) Primary hypertension Unspecified essential hypertension Coronary arteriosclerosis Coronary atherosclerosis of unspecified type of vessel, [place] or graft Obstructive sleep apnea syndrome Obstructive sleep apnea (adult) (pediatric) Suspected chronic obstructive pulmonary disease based on initial evaluation ([facility]) Skin mole Solitary pulmonary nodule- Primary Obstructive sleep apnea syndrome Obstructive sleep apnea (adult) (pediatric) Primary hypertension Unspecified essential hypertension Type 2 diabetes mellitus without complication, without long-term current use of insulin ([facility]) Hyperlipidemia, unspecified hyperlipidemia type Type 2 diabetes mellitus without complication, without long-term current use of insulin ([facility])- Primary Mild cognitive impairment Mild cognitive impairment, so stated Primary hypertension Unspecified essential hypertension Solitary pulmonary nodule Dyslipidemia Other and unspecified hyperlipidemia Coronary arteriosclerosis Coronary atherosclerosis of unspecified type of vessel, [place] or graft BMI 40.0-44.9, adult ([facility]) Type 2 diabetes mellitus without complication, without long-term current use of insulin ([facility])- Primary Benign essential hypertension Essential hypertension, benign Chronic GERD Suspected chronic obstructive pulmonary disease based on initial evaluation ([facility]) Mild cognitive impairment Mild cognitive impairment, so stated Acute bronchitis with wheezing Mixed hyperlipidemia Mixed hyperlipidemia Cerumen debris on tympanic membrane of both ears Solitary pulmonary nodule Acquired buried penis Type 2 diabetes mellitus without complication, without long-term current use of insulin ([facility])- Primary Mixed hyperlipidemia Mixed hyperlipidemia Primary hypertension Unspecified essential hypertension BMI 40.0-44.9, adult ([facility]) Acute bronchitis with wheezing Hyperlipidemia, unspecified Essential (primary) hypertension Unspecified essential hypertension Major depressive disorder, recurrent, mild Major depressive disorder, recurrent episode, mild Chronic GERD Persistent depressive disorder Suspected chronic obstructive pulmonary disease based on initial evaluation ([facility]) Benign essential hypertension- Primary Essential hypertension, benign Pulmonary fibrosis, unspecified ([facility]) Morbid (severe) obesity due to excess calories ([facility]) Body mass index (BMI) 40.0-44.9, adult ([facility]) Obstructive sleep apnea syndrome Obstructive sleep apnea (adult) (pediatric) Coronary arteriosclerosis Coronary atherosclerosis of unspecified type of vessel, [place] or graft Chronic GERD Type 2 diabetes mellitus without complication, without long-term current use of insulin (HCC) Mixed hyperlipidemia Mixed hyperlipidemia Episode of recurrent major depressive disorder, unspecified depression episode severity Mild cognitive impairment Mild cognitive impairment, so stated Prostate cancer screening Special screening for malignant neoplasm of prostate Primary hypertension Unspecified essential hypertension Encounter for subsequent annual wellness visit (AWV) in Medicare patient- Primary Type 2 diabetes mellitus with other specified complication (HCC) Obstructive sleep apnea syndrome Obstructive sleep apnea (adult) (pediatric) Benign essential hypertension Essential hypertension, benign Coronary arteriosclerosis Coronary atherosclerosis of unspecified type of vessel, [place] or graft Morbid (severe) obesity due to excess calories ([facility]) Type 2 diabetes mellitus without complication, without long-term current use of insulin (HCC) Primary hypertension Unspecified essential hypertension Hyperlipidemia, unspecified Suspected chronic obstructive pulmonary disease based on initial evaluation (HCC) Hyperlipidemia, unspecified documented in this encounter [facility] HealthcareEvaluation noteNo assessment information availableMem[facility] Work Phone: Hospital Discharge instructions No data available for this section [facility] Hospital Discharge instructionsAmbulatory Orders* Referral to PT (Nima Flores) Time Frame: 08/13/25, Location: [facility] Work Phone: Progress note No data available for this section [facility] Reason for referral (narrative)* Consultation (Routine) - Pending Review Specialty Diagnoses / Procedures Referred By Ben t Referred To Contact Urology Diagnoses Acquired buried penis Procedures RI OFFICE/OUTPATIENT NEW HIGH MDM 60 MINUTES Chioma Hardy NP [address] [place] [address] Maximilian Mata MD [address] [place] [address] Referral ID Status Reason Start Date Expiration Date Visits Requested Visits Authorized [id number] Pending Review Specialty Services Required 07/23/2024 01/19/2025 1 1 Scheduling Instructions Please include [facility] 07[facility]23 [facility]ative)No reason for referral information availableMemorial Hospital Work Phone: Reason for visit Narrative* Consultation (Routine) - Closed Specialty Diagnoses / Procedures Referred By Ben schmitt Referred To Contact Psychology / Neurology Diagnoses Mild cognitive impairment Procedures RI OFFICE/OUTPATIENT [facility] MDM 60 MINUTES Tania Lucero DO [address] [place] [id number] Deshawn Terrell, PhD [address] [place] [phone] Referral ID Status Reason Start Date Expiration Date V isits Requested Visits Authorized [id number] Closed Specialty Services Required 07/08/2024 01/04/2025 1 1 [facility] Healthcare Summary Purpose Family History Relationship Condition Age at Onset Recorded Date/T annemarie father Unknown mother Unknown Diabetes mellitus Unknown Heart disease Unknown History of stroke Unknown Advance Directives Advance Directive Response Recorded Date/ Time Advance Directives No June 25 1:16pm Reason for Referral Specialty Diagnoses / Procedures Referred By Ben schmitt Referred To Contact Diagnoses Type 2 diabetes mellitus without complication, without long-term current use of insulin ([facility]) Chioma Hardy, DEX [address] [place] [phone] Referral ID Status Reason Start Date Expiration Date Visits Re quested Visits Authorized [id number] Closed 1 1 Chief Complaint and Reason for Visit Chief Complaint Admit Date Sleep F/u June 25, 2025 1:16 pm Chief Complaint Admit Date Sleep F/u June 25, 2025 1:16 pm Established Patient August 13, 2025 9:29am Reason for Visit Admit Date Hypersomnia June 25, 2025 1:16 pm Obesity June 25, 2025 1:16 pm ZENON (obstructive sleep apnea) Payal 30th, 2025 1:16pm Snoring June 25, 2025 1:16 pm CAD in [place] artery August 13 9:29am Chronic lower back pain August 13, 2025 9:29am Essential hypertension August 13, 025 9:29am GERD without esophagitis August 13, 2025 9:29am Morbid obesity due to excess calories Se ptember 2024 9:29am ZENON (obstructive sleep apnea) August 13, 2025 9:29am Type 2 diabetes mellitus wit hout complication, without long-term current us August 13, 2025 9:29am Additional Source Comments (unrecognized sect ion and content) No Status Records FoundNo Status Records FoundNo Status Records FoundNo Status Records FoundNo Status Records FoundNo Status Records Found INFORMATION SOURCE (unrecogn ized section and content) DATE CREATED AUTHOR 07/03/2022 [facility] DATE CREATED AUTHOR AUTHOR'S ORGANIZ ATION 03/15/2025 [facility] DATE CREATED AUTHOR AUTHOR'S ORGANIZ ATION [facility] DATE CREATED AUTHOR AUTHOR'S ORGANIZ ATION 03/22/2025 [facility] DATE CREATED AUTHOR AUTHOR'S ORGANIZ ATION 04/07/2025 [facility] DATE CREATED AUTHOR AUTHOR'S ORGANIZ ATION 05/15/2025 [facility] Patient Care team informatio n (unrecognized section and content) Blood And Plasma Laboratory Assistant Relationship Specialty Start Date End Date Rachid Barillas MD [address] [place] [address] PCP - [employer] 10/27/23 Rachid Barillas MD [address] [place] [address] PCP - General Family Medicine 07/23/24 Chioma Hardy NP [address] [place] [address] Nurse Practitioner Family Medicine 07/01/24 [facility] Plasma Laboratory Assistant Relationship Specialty Start Date End Date Rachid Barillas MD [address] [place] [address] PCP - [employer] 10/27/23 Rachid Barillas MD [address] [place] [address] PCP - General Family Medicine 07/23/24 Chioma Hardy NP [address] [place] [address] Nurse Practitioner Family Medicine 07/01/24 [facility] Plasma Laboratory Assistant Relationship Specialty Start Date End Date Rachid Barillas MD [address] [place] [address] PCP - [employer] 10/27/23 Rachid Barillas MD [address] [place] [address] PCP - General Family Medicine 07/23/24 Chioma Hardy NP [address] [place] [address] Nurse Practitioner Family Medicine 07/01/24 Blood And Plasma Laboratory Assistant Relationship Specialty Start Date End Date Rachid Barillas MD [address] [place] [address] PCP - [employer] 10/27/23 Rachid Barillas MD [address] [place] [address] PCP - General Family Medicine 07/23/24 Chioma Hardy NP [address] [place] [address] Nurse Practitioner Family Medicine 07/01/24 Blood And Plasma Laboratory Assistant Relationship Specialty Start Date End Date Rachid Barillas MD [address] [place] [address] PCP - [employer] 10/27/23 Rachid Barilals MD [address] [place] [address] PCP - General Family Medicine 07/23/24 Chioma Hardy NP [address] [place] [address] Nurse Practitioner Family Medicine 07/01/24 Blood And Plasma Laboratory Assistant Relationship Specialty Start Date End Date Rachid Barillas MD [address] [place] [address] PCP - [employer] 10/27/23 Rachid Barillas MD [address] [place] [address] PCP - General Family Medicine 07/23/24 Chioma Hardy NP [address] [place] [address] Nurse Practitioner Family Medicine 07/01/24 Blood And Plasma Laboratory Assistant Relationship Specialty Start Date End Date Rachid Barillas MD [address] [place] [address] PCP - [employer] 10/27/23 Rachid Barillas MD [address] [place] [address] PCP - General Family Medicine 07/23/24 Chioma Hardy, DEX [address] [place] [address] Nurse Practitioner Family Medicine 07/01/24 Blood And Plasma Laboratory Assistant Relationship Specialty Start Date End Date Rachid Barillas MD [address] [place] [address] PCP - [employer] 10/27/23 Rachid Barillas MD [address] [place] [address] PCP - General Family Medicine 07/23/24 Chioma Hardy, DEX [address] [place] [address] Nurse Practitioner Family Medicine 07/01/24 Blood And Plasma Laboratory Assistant Relationship Specialty Start Date End Date Rachid Barillas MD [address] [place] [address] PCP - [employer] 10/27/23 Rachid Barillas MD [address] [place] [address] PCP - General Family Medicine 07/23/24 Chioma Hardy NP [address] [place] [address] Nurse Practitioner Family Medicine 07/01/24 Blood And Plasma Laboratory Assistant Relationship Specialty Start Date End Date Rachid Barillas MD [address] [place] [address] PCP - [employer] 10/27/23 Rachid Barillas MD [address] [place] [address] PCP - General Family Medicine 07/23/24 Chioma Hardy NP [address] [place] [address] Nurse Practitioner Family Medicine 07/01/24 Blood And Plasma Laboratory Assistant Relationship Specialty Start Date End Date Rachid Barillas MD [address] [place] [address] PCP - [employer] 10/27/23 Rachid Barillas MD [address] [place] [address] PCP - General Family Medicine 07/23/24 Chioma Hardy NP [address] [place] [address] Nurse Practitioner Family Medicine 07/01/24 Blood And Plasma Laboratory Assistant Relationship Specialty Start Date End Date Rachid Barillas MD [address] [place] [address] PCP - [employer] 10/27/23 Rachid Barillas MD [address] [place] [address] PCP - General Family Medicine 07/23/24 Chioma Hardy NP [address] [place] [address] Nurse Practitioner Family Medicine 07/01/24 Blood And Plasma Laboratory Assistant Relationship Specialty Start Date End Date Rachid Barillas MD [address] [place] [address] PCP - [employer] 10/27/23 Rachid Barillas MD [address] [place] [address] PCP - General Family Medicine 07/23/24 Chioma Hardy NP [address] [place] [address] Nurse Practitioner Family Medicine 07/01/24 Blood And Plasma Laboratory Assistant Relationship Specialty Start Date End Date Rachid Barillas MD [address] [place] [address] PCP - General Family Medicine 07/23/24 Shaikh Acevedo MD [address] [place] [address] PCP - [employer] 10/27/23 Chioma Hardy NP Nurse Practitioner Family Medicine 07/01/24 Blood And Plasma Laboratory Assistant Relationship Specialty Start Date End Date Rachid Barillas MD [address] [place] [address] PCP - General Family Medicine 07/23/24 Shaikh Acevedo MD [address] [place] [address] PCP - [employer] 10/27/23 Chioma Hardy NP Nurse Practitioner Family Medicine 07/01/24 Blood And Plasma Laboratory Assistant Relationship Specialty Start Date End Date Rachid Barillas MD [address] [place] [address] PCP - General Family Medicine 07/23/24 Shaikh Acevedo MD [address] [place] [address] PCP - [employer] 10/27/23 Chioma Hardy NP Nurse Practitioner Family Medicine 07/01/24 Blood And Plasma Laboratory Assistant Relationship Specialty Start Date End Date Rachid Barillas MD [address] [place] [address] PCP - General Family Medicine 07/23/24 Shaikh Acevedo MD [address] [place] [address] PCP - [employer] 10/27/23 Chioma Hardy NP Nurse Practitioner Family Medicine 07/01/24 Blood And Plasma Laboratory Assistant Relationship Specialty Start Date End Date Rachid Barillas MD [address] [place] [address] PCP - General Family Medicine 07/23/24 Shaikh Acevedo MD [address] [place] [address] PCP - [employer] 10/27/23 Chioma Hardy NP Nurse Practitioner Family Medicine 07/01/24 Blood And Plasma Laboratory Assistant Relationship Specialty Start Date End Date Rachid Barillas MD [address] [place] [address] PCP - General Family Medicine 07/23/24 Shaikh Acevedo MD [address] [place] [address] PCP - [employer] 10/27/23 Chioma Hardy NP Nurse Practitioner Family Medicine 07/01/24 Team Status: Active Member Role Status Dates NON STAFF Primary Care Provider Active Team Status: Inactive Member Role Status Dates NON STAFF Primary Care Provider Active Start: June 25, 2025 End: June 25, 2025 Perri Og DO Attending Provider Active Sta rt: June 25, 2025 End: June 25, 2025 Team Status: Active Member Role Status Dates JULEE Sanders Primary Care Provider Active Team Status: Inactive Member Role Status Dates JULEE Sanders Primary Care Provider Active Start: August 13, 2025 End: August 13, 2025 Lela Solorzano NP-C Attending Provider Active Start: August 13, 2025 End: August 13, 2025 Reason for Visit (unrecogniz ed section and content) Reason Comments Follow-up Reason Comments Med Change Request Reason Comments Follow-up Reason Onset Date Comments Med Refill 08/21/2024 Reason Comments Medicare Annual Wellness Visit Initial Reason Onset Date Comments Med Refill 05/19/2025 Goals (unrecognized section and content) Goals may be documented in a n alternate section FOR RECORDS PERTAINING TO PATIENTS WHO ARE [...] BE BASED ON THE PRIMARY CLINICAL RECORDS. [employer] provides no warranty or guarantee of the accuracy or completeness of information in this document.
== END 2025-08-13 11:08 | disposition home or self-care (01) ==
LOC: RAD 11:08
PROVIDERS: PCP Nurse Practitioner; Visit Provider Nurse Practitioner
DX: M54.50 Low back pain, unspecified (principal); G89.29 Other chronic pain
CPT/HCPCS: 72100

== ENCOUNTER 2025-08-20 10:34 | Outpatient (RCR) | payer MEDICARE, SELFPAY | END 2025-09-24 13:11 | disposition home or self-care (01) | LOC: PT 10:34 | PROVIDERS: PCP Nurse Practitioner; Visit Provider Nurse Practitioner | DX: M54.50 Low back pain, unspecified (principal); G89.29 Other chronic pain | CPT/HCPCS: 97010; 97110; 97113; 97162; G0283 ==

== ENCOUNTER 2025-08-25 10:15 | Outpatient (OUT) | payer MEDICARE, SELFPAY ==
--- OUTSIDE RECORDS SUMMARY | 2025-05-13 09:49 | XMS_ITS ---
Author Name Auto Generated Organization [place] Care Team Providers Care Time Study Observer Name Role Phone RONDA THIBODEAUX Attending Unavailable PAWEL SORAI Attending Unavailable PAWEL SORIA Attending Unavailable TANIA GUSMAN Attending Unavailable HARDY, BRITTANY Attending UnavailTania Lawrence Attending Unavailable [facility] Referring Unavailabl rocío [facility] [place] UnavailTania Lawrence Attending Unavailable [facility] Un[facility]ail[facility] Attending Unavailable [facility] UnavailTania Lawrence Attending Unavailable [facility] [place] UnavailTania Lawrence Admitting Unavailable Tania Mariscal Attending [facility] Admitting Unavailable Tania Mariscal Attending Unavailable TAMMY HARDY Primary Care Unavailviktor e ERWIN TIPTON Attending Unavailable PROBLEMS DATE TYPE CONDITION / CODE ATTENDING STATUS RADHA Rocío 07/20/2022 Admitting Diagnosis Essential (primary) hypertension / I10(ICD-10) CARLOS EDUARDO [facility] 07/20/2022 Admitting Diagnosis Mixed hyperlipidemia / E78.2(ICD-10) [facility] 03/14/2025 Admitting Diagnosis Atherosclerotic heart disease of [place] coronary artery without angina pectoris / I25.10(ICD-10) [facility] 03/14/2025 Admitting Diagnosis Shortness of breath / R06.02(ICD-10) [facility] Admitting Diagnosis Localized edema / R60.0(ICD-10) [facility] PROCEDURES No Procedure Records Found RESULTS 36 Observed: 04/07/2025 10:28 AM Status: COMPLETED Source: [facility] Regarding echo result from : and labs from 04/02/2025: MD Karine Funes MA His echocardiogram and blood testing were okay. Continue same medications. Follow-up as planned unless there is need to see me before that. Patient informed. He verbalized understanding. PATIENT EDUCATION Observed: 03/19/2025 10:47 AM Status: F Source: [facility] Patient Education Urology Hypogonadism, Male Male hypogonadism [...] Follow these instructions at home: ??? Take [id number] and prescription medicines only as told by [...] provider. Document Revised: 07/15/2021 Document Reviewed: 07/15/2021 [employer] Patient Education ? 2023 [employer] AMBULATORY VISIT SUMMARY Observed: 03/19 9:58 AM Status: F Source: [facility] Ambulatory Visit Summary FUNMI JULIO :1955 Visit Date:03/19/2025 Ambulatory Visit Instructions Your Diagnosis Hypogonadism male ED (erectile dysfunction) Acquired buried penis Screening PSA (prostate specific antigen) Your Care Team Attending Physician - Davey PARISH, Tania Angel Primary Care Physician - MS. TAMMY HARDY This Is Your Medications List anastrozole (anastrozole 1 mg Tab) Contact prescribing physician if questions or concerns albuterol (Albuterol (Eqv-Ventolin HFA) 90 mcg/inh inhalation aerosol) amlodipine (amLODIPine 10 mg Tab) aspirin (aspirin 81 mg Chew Tab) atorvastatin (atorvastatin 40 mg Tab) fexofenadine (fexofenadine 180 mg Tab) hydrochlorothiazide-lisinopril (hydrochlorothiazide-lisinopril 12.5 mg-20 mg Tab) isosorbide mononitrate (isosorbide mononitrate 60 mg ER Tab) metformin (metformin 850 mg Tab) metoprolol (metoprolol 100 mg ER Tab) omeprazole (omeprazole 20 mg Cap-DR) paroxetine (Paxil 40 mg Tab) semaglutide (Ozempic 2 mg/3 mL (0.25 mg or 0.5 mg dose) subcutaneous solution) [Image Removed: STOP]Stop taking these medications testosterone (Jatenzo 237 mg oral capsule) Procedures Performed Colonoscopy (05/29/2024), Colonoscopy (04/08/2014), Cardiac catheterization, Repair of umbilical hernia, Tonsillectomy and adenoidectomy. Discharge Vitals Height 182 cm Height 72 in Weight 145.1 kg Weight 319.89 lb BMI 43.81 What to do next Scheduled Follow-Up Appointments Monday 8:30 AM EDT Where: [facility] [id number]- You Need to Schedule the Following Appointments Follow Up with Davey PARISH, Tania Angel, URL, URO When: Where: You Need to Complete the Following Testosterone Level Total, Blood, Routine collect, 07/28/25, Order for future visit, Lab Collect, Hypogonadism male, Not Required, Print Label By Order Location Medications What How Much When Instructions Unchanged anastrozole (anastrozole 1 mg Tab) 1 Tablets By Mouth Every week Duration: 90 Days Unchanged albuterol (Albuterol (Eqv-Ventolin HFA) 90 mcg/ [...] prescribing physician if questions or concerns Unchanged hydrochlorothiazide-lisinopril (hydrochlorothiazide-lisinopril 12.5 mg-20 mg Tab) 1 Tablets By Mouth Every day Contact prescribing physician if questions or concerns Unchanged isosorbide mononitrate (isosorbide mononitrate 60 mg ER Tab) 1 Tablets By Mouth Once a day (in the morning) Contact prescribing physician if questions or concerns Unchanged metformin (metformin 850 mg Tab) 1 Tablets By Mouth 2 [...] Contact prescribing physician if questions or concerns What How Much When Comments Stop Taking testosterone (Jatenzo 237 mg oral capsule) 1 Capsules By Mouth 2 times a day Allergies oxyCODONE (SOB - Shortness of breath, Hives) Problems Ongoing - Any problem that you are currently receiving treatment for. Acquired buried penis Anemia Benign essential hypertension BMI 40.0-44.9, adult Calcified granuloma of lung Class 3 obesity Coronary arteriosclerosis Depressive disorder Diabetes Dyslipidemia ED (erectile dysfunction) Gastroesophageal reflux disease Hyperlipidemia Hypertensive disorder Hypogonadism male Impaired fasting glycemia Low libido Morbid obesity with BMI of 40.0-44.9, adult Obstructive sleep apnea syndrome Screening for malignant neoplasm of colon Screening PSA (prostate specific antigen) Type 2 diabetes mellitus Umbilical hernia Patient Survey You may receive a survey via text or e-mail asking about your office visit. Please share your experience with us by completing your survey. We appreciate your feedback and thank you for choosing us for your care. Education Materials Hypogonadism, Male Male hypogonadism is a condition [...] Follow these instructions at home: ??? Take [id number] and prescription medicines only as told by your health care provider. ??? Eat foods that are high in fiber, such as beans, whole grains, and fresh fruits and vegetables. Limit foods that are high in fat and processed sugars, such as fried or sweet foods. ??? If you drink alcohol: ? Limit how much you have to 0???2 drinks a day. ? Know how much alcohol is in your drink. In the [place] one drink equals one 12 oz bottle of beer (355 mL), one 5 oz glass of wine (148 mL), or one 1??? oz glass of hard liquor (44 mL). [...] provider. Document Revised: 07/15/2021 Document Reviewed: 07/15/2021 [employer] Patient Education ??? 2023 [employer] UROLOGY OFFICE/CLINIC NOTE Observed: 9:58 AM Status: F Source: [facility] Urology Office/Clinic Note Chief Complaint 3 month with labs HPI Staff 69 year old male patient here for 3 month follow up with labs. Previous dx: ED, hypogonadism male, acquired buried penis 03/12/25: HCT- 43.6 PSA- 1.5 Testosterone- 348 * Jatenzo 237 mg bid, Pt. not taking Pt. is taking Nugenix total-T OTC, Pt. states he has been taking for about a month IPSS 2 JAVAN 2 Pt. denies having pain with urination or gross hematuria Pt. denies having abd or flank pain History of Present Illness Tests reviewed: reviewed UA, PSA, testosterone, hgb, hct. I have reviewed the previous health record information and history for this patient from Dr. Mariscal I have reviewed and verified the staff [...] See HPI. Physical Exam Vitals & Measurements HT: 182 cm HT: 72 in WT: 319.89 lb WT: 145.1 kg BMI: 43.81 General Appearance: alert, no distress, well nourished, well developed male. Assessment/Plan Funmi is a 69 yo male pt here today to review labs. On Ozempic. 1. Hypogonadism male (E29.1: Testicular hypofunction) Testosterone ([id number]) 09/03/24 - 242 09/10/24 - 220 03/12/25 - 348 Other labs 09/10/24 - Estrogen 98, LH 10.2, Prolactin 10.9 03/12/25 - hgb 14.5, hct 43.6 Prescribed Jatenzo 237mg bid and Anastrozole 1mg 1x/wk at prior OV. Pt states that Jatenzo was >$1000. Pt never started. Pt states he purchased Nugenix which was around $80. Testosterone level did increase mildly. As he is tolerating this well, he would like to continue taking this OTC supplement. Discussed testosterone injections. Pt prefers Nugenix. He prefers to check testosterone level in 6 months rather than symptomatic monitoring. -Cont Nugenix per pt request -Pt to call if he is interested in starting testosterone injections -Testosterone level in 6 mos (nurse visit), pt wishes to be called rather than making an appt -F/up to be made based on level if further medication tx is desired 2. ED (erectile dysfunction) (N52.9: Male erectile dysfunction, unspecified) JAVAN 2 (1) Isosorbide mononitrate on med list, pt unable to take PDE5i. Advised pt that his only options would be ICI or NAVI. Pt states he did not look into these treatment options since last visit. Has noticed slight improvement with ED since starting Nugenix. Declines further tx at this time -DM control, cont following w/ primary care -Heart healthy diet, weight loss 3. 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 Reports he was circumcised. Only complaint with urination is difficulty controlling stream. Shares DM was uncontrolled when this first start. Most recent A1c 07/15/24 - 6.3. Has gained 45 lbs since retiring in Nov 2022. Pt states he just keeps gaining weight. -DM control, cont following w/ PCP -Heart healthy diet, weight loss -Would need referral to tertiary center for buried penis repair 4. Screening PSA (prostate specific antigen) (Z12.5: Encounter for screening for malignant neoplasm of prostate) PSA 03/12/25 - 1.5 UA today negative for blood or infection. IPSS 2 (3) Not taking any BPH meds. No bothersome urinary complaints. -Can cont prostate cancer screening through primary care Follow-up With When Contact Information Davey PARISH, Tania Angel, URL, URO Additional Instructions: Nurse visit in 6 mos for testosterone level (pt to be called with results) Patient Education Hypogonadism, Male I, Aditi Mora, personally scribed for Dr. Mariscal on 03/19/2025 10:49:02. . Documentation recorded by the scribe, Aditi Mora, accurately reflects the services(s) I performed and decisions made by me. Authenticated by Dr. Mariscal on 03/19/2025 10:57:34. Problem List/Past Medical History Ongoing Acquired buried penis Anemia Benign essential hypertension BMI 40.0-44.9, adult Calcified granuloma of lung Class 3 obesity Coronary arteriosclerosis Depressive disorder Diabetes Dyslipidemia ED (erectile dysfunction) Gastroesophageal reflux disease Hyperlipidemia Hypertensive disorder Hypogonadism male Impaired fasting glycemia Low libido Morbid obesity with BMI of 40.0-44.9, adult Obstructive sleep apnea syndrome Screening for malignant neoplasm of colon Screening PSA (prostate specific antigen) Type 2 diabetes mellitus Umbilical hernia Historical No qualifying data Procedure/Surgical History Colonoscopy (05/29/2024), Colonoscopy (04/08/2014), Cardiac catheterization, Repair of umbilical hernia, Tonsillectomy and adenoidectomy. Medications Albuterol (Eqv-Ventolin HFA) 90 mcg/inh inhalation aerosol, 2 puff(s), Inhalation, q4hr amLODIPine 10 mg Tab, 10 mg= 1 tab(s), Oral, Daily anastrozole 1 mg Tab, 1 mg= 1 tab(s), Oral, qWeek, 1 refills aspirin 81 mg Chew Tab, 81 mg= 1 tab(s), Chewed, Daily atorvastatin 40 mg Tab, 40 mg= 1 tab(s), Oral, Daily fexofenadine 180 mg Tab hydrochlorothiazide-lisinopril 12.5 mg-20 mg Tab, 1 tab(s), Oral, Daily isosorbide mononitrate 60 mg ER Tab, 60 mg= 1 tab(s), Oral, qAM Jatenzo 237 mg oral capsule, 237 mg= 1 cap(s), Oral, BID, 5 refills, Not taking metformin 850 mg Tab, 850 mg= 1 tab(s), Oral, BID metoprolol 100 mg ER Tab, 100 mg= 1 tab(s), Oral, Daily omeprazole 20 mg Cap-DR, 20 mg= 1 cap(s), Oral, Daily Ozempic 2 mg/3 mL (0.25 mg or 0.5 mg dose) subcutaneous solution, 0.5 mg, SubCutaneous, qWeek Paxil 40 mg Tab, 40 mg= 1 tab(s), Oral, Daily Allergies oxyCODONE (SOB - Shortness of breath, Hives) Social History Alcohol Current. Beer. Several times per day., 12/17/2024 Substance Abuse - Denies Substance Abuse, 04/16/2024 Never., 12/18/2024 Tobacco Former smoker, quit more than 30 days ago, quit at age 29 Tobacco Use:. Cigarettes, 03/19/2025 Family History Cardiac arrhythmia: Brother. Crohn's disease: Sister. Diabetes mellitus type 2: Mother. Heart disease: Brother. Hypertension: Sister and Brother. Primary malignant neoplasm of prostate: Brother. Stroke: Mother and Sister. Immunizations Vaccine Date Status influenza virus vaccine, inactivated 09/28/2023 Recorded SARS-CoV-2 (COVID-19) mRNA-1273 vaccine 10/23/2021 Recorded influenza virus vaccine, inactivated 09/12/2021 Recorded SARS-CoV-2 (COVID-19) mRNA-1273 vaccine 03/06/2021 Recorded SARS-CoV-2 (COVID-19) mRNA-1273 vaccine 02/06/2021 Recorded influenza virus vaccine, inactivated 08/26/2020 Recorded influenza virus vaccine, inactivated 11/18/2019 Recorded zoster vaccine, inactivated 09/11/2018 Recorded influenza virus vaccine, inactivated 08/14/2018 Recorded zoster vaccine, inactivated 03/10/2018 Recorded influenza virus vaccine, inactivated 09/15/2017 Recorded influenza virus vaccine, inactivated 10/16/2015 Recorded influenza virus vaccine, inactivated 08/05/2013 Recorded influenza virus vaccine, inactivated 08/09/2012 Recorded influenza virus vaccine, inactivated 08/12/2011 Recorded Lab Results Ambulatory Point of Care Results Bilirubin Urine Dipstick: Negative (03/19/25 10:20:00) Blood Urine Dipstick: Negative (03/19/25 10:20:00) Glucose Urine Dipstick: Negative (03/19/25 10:20:00) Ketones Urine Dipstick: Trace - 5 mg/dl (03/19/25 10:20:00) Leukocytes Urine Dipstick: Negative (03/19/25 10:20:00) Nitrite Urine Dipstick: Negative (03/19/25 10:20:00) Protein Urine Dipstick: 1+ (30 mg/dl) (03/19/25 10:20:00) Specific [place] Urine Dipstick: 1.025 (03/19/25 10:20:00) Urine Appearance Urine Dipstick: Clear (03/19/25 10:20:00) Urine Color Urine Dipstick: Yellow (03/19/25 10:20:00) Urobilinogen Urine Dipstick: Normal 0.2-1 EU/dl (03/19/25 10:20:00) pH Urine Dipstick: 6 (03/19/25 10:20:00) Result Comment: Electronical ly Signed By: Tania Mariscal MD\.br\Date and Time Signed: 03/19/25 10:57 EDT\.br\Electronically Co-Signed By: Aditi Mora\.br\Date and Time Co-Signed: 03/19/25 10:49 EDT\.br\Electronically Co-Signed By: Aditi Mora\.br\Date and Time Co-Signed: 03/19/25 10:55 EDT OFFICE VISIT Observed: 03/14/2025 9:15 AM Status: COMPLETED Source: [facility] [id number] Funmi Julio 01/1956 M Date Provider Department Center 03/14/2025 Walker-RONDA THIBODEAUX Family History Problem Relation Age of Onset Diabetes Mother Hypertension Brother Heart attack Other Family Status - Relation Status Age at Mother Father Sister Alive Brother Other Level of Service:00084 ME OFFICE/OUTPATIENT ESTABLISHED MOD MDM 30 MIN PROGRESS Observed: 03/14/2025 9:15 AM Status: COMPLETED Source: [facility] Cardiology - [facility] Subjective Funmi Julio is a 69 y.o. year old male patient being seen for 1 year follow up. Patinet denies chest pain, or leg swelling . Patient complains of SOB, dyspnea with exertion, lower back pain. Patient had recent labs at [facility] on 03/12/2025 Patient Active Problem List Diagnosis Acute sinusitis Anemia Benign essential hypertension Coronary arteriosclerosis Cough Depressive disorder Hyperlipidemia Hypertensive disorder Impaired fasting glucose Neck sprain Pain in joint involving ankle and foot Precordial pain Solitary pulmonary nodule Chronic GERD Constipation Dyslipidemia Obesity (BMI 30-39.9) Rectal bleeding Sleep apnea Type 2 diabetes mellitus without complication, without long-term current use of insulin ([facility]/HCC) Acquired buried penis Calcified lymph nodes Cerumen debris on tympanic membrane of both ears Chest pain ED (erectile dysfunction) Episode of recurrent major depressive disorder Former tobacco use Hypogonadism male Low libido Mild cognitive impairment Morbid (severe) obesity due to excess calories (CMS/HCC) Prostate cancer screening Suspected chronic obstructive pulmonary disease based on initial evaluation (CMS/HCC) Umbilical hernia Family History Problem Relation Name Age of Onset Diabetes Mother Hypertension Brother Heart attack Other Social History Tobacco Use Smoking status: Former Types: Cigarettes Smokeless tobacco: Current Types: Chew Substance Use Topics Alcohol use: Yes Comment: MODERATE Drug use: Never HPI Funmi Julio is seen in follow up. He is a 69 yo man with prior history of hypertension [...] and January 2022 was within normal limits. Previously his PCP increased lisinopril hydrochlorothiazide back to twice daily due to leg swelling and the leg swelling improved. Previously had a CT scan of the chest to follow-up on pulmonary nodule. he recently underwent a follow-up CT scan on 03/06/2024. 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 Today he reports that he has been having shortness of breath on exertion NYHA class II-III symptoms. He also has leg edema. No chest pain. No palpitations. He has acceptable exercise tolerance. His blood pressure is elevated. Review of Systems Constitutional: Negative. Cardiovascular: Positive for dyspnea on exertion and leg swelling. Negative for chest pain, claudication, cyanosis, irregular heartbeat, near-syncope, orthopnea, palpitations, paroxysmal nocturnal dyspnea and syncope. Respiratory: Positive for shortness of breath. Musculoskeletal: Positive for back pain. Objective Visit Vitals BP 150/86 (BP Location: Left arm, Patient Position: Sitting) Pulse 83 Ht 1.829 m (6') Wt (!) 142 kg (314 lb) SpO2 94% BMI 42.59 kg/m??? Smoking Status Former BSA 2.69 m??? Physical Exam Constitutional: Appearance: He is [...] General: No swelling. Cervical back: Neck supple. Right lower le+ Pitting Edema present. Left lower le+ Pitting Edema present. Skin: General: Skin is warm and dry. Neurological: General: No focal deficit present. Mental Status: He is alert and oriented to person, place, and time. Psychiatric: Mood and Affect: Mood normal. Behavior: Behavior is cooperative. Judgment: Judgment normal. Allergies Allergies Allergen Reactions Oxycodone Medications Current Outpatient Medications: albuterol 90 mcg/actuation inhaler, Inhale 2 puffs every 4 (four) hours if needed., Disp: , Rfl: amLODIPine (Norvasc) 10 mg tablet, Take 1 tablet by mouth in the morning., Disp: , Rfl: aspirin 81 mg chewable tablet, Chew 81 mg in the morning., Disp: , Rfl: atorvastatin (Lipitor) 40 mg tablet, Take 40 mg by mouth in the morning., Disp: , Rfl: fexofenadine (Lamar) 180 mg tablet, Take 1 tablet by mouth [...] mg tablet, Take 1 tablet by mouth with breakfast and with evening meal., Disp: , Rfl: metoprolol succinate XL (Toprol-XL) [...] mouth in the morning., Disp: , Rfl: testosterone undecanoate (Jatenzo) 237 mg capsule, Take 237 mg by mouth., Disp: , Rfl: anastrozole (Arimidex) 1 mg chemo tablet, Take 1 mg by mouth 1 (one) time per week, Disp: , Rfl: Ozempic 1 mg/dose (4 mg/3 mL) pen injector, Inject 1 mg under the skin in the morning., Disp: , Rfl: spironolactone (Aldactone) 25 mg tablet, Take 0.5 tablets (12.5 mg) by mouth in the morning., Disp: 45 tablet, Rfl: 3 Recent Labs 10/27/2018: normal BMP, CBC. LDL 51. TG 56 labs from 01/12/2022: CBC normal, Potassium 4.2 normal, Renal function normal BUN 18, creatinine 0.92, Liver function normal, Cholesterol 125, HDL 39, triglyceride 84, LDL 69, CRP normal 0.7, proBNP less than 11.1 normal Hemoglobin A1c 6.4 blood testing 08/30/2023: Hgb 14.9, wbc 8.7, plt 321, Cr. 1.03, BUN 15, eGFR >60, K 3.9, Na 141, AST 18, ALT 34, Chol 132, trig 136, HDL 41, LDL 63, TSH 0.766 Blood testing 02/01/2024: Hemoglobin 14.5, platelets 351, potassium 3.9, BUN 11, creatinine 1.01, EGFR more than 60, hemoglobin A1c 6.5%, LFTs normal, triglycerides 109, cholesterol 125, LDL 63, Blood testing 07/15/2024: Potassium 4.0, BUN 9, creatinine 0.98, EGFR more than 60, hemoglobin A1c 6.3%, LFTs normal, TSH normal. Blood testing 03/12/2025: Hemoglobin 14.5, platelets 347, potassium 3.9, BUN 13, creatinine 0.99, EGFR more than 60, LFTs normal. Triglycerides 101, cholesterol 107, HDL 33, LDL 54. Imaging and other tests CT scan of the chest 03/06/2024: IMPRESSION: 1 cm noncalcified right lower lobe pulmonary nodule. Consider PET/CT to evaluate metabolic status 6.7 mm calcified left lung nodule corresponding to the plain film findings Chest x-ray 01/11/2024: Improved mild atelectasis or infiltrate of the right mid lung field since Prior exam. 7 mm pulmonary nodule of the left lower lobe is unchanged. stress test-01/26/2022: No acute or reversible ischemia, noted diaphragm artifact versus fixed perfusion defect, Normal wall motion and ejection fraction, No ischemic EKG changes seen on Lexiscan Echocardiogram from 01/12/2022 normal LV systolic function EF's 60%, No valvular dysfunction, No pericardial effusion of Assessment/Plan Diagnoses and all orders for this visit: Coronary artery disease involving [place] coronary artery of [place] heart without angina pectoris Shortness of breath - Transthoracic echo (TTE) complete; Future - B-type natriuretic peptide; Future Primary hypertension - spironolactone (Aldactone) 25 mg tablet; Take 0.5 tablets (12.5 mg) by mouth in the morning. - Basic metabolic panel; Future Mixed hyperlipidemia - Transthoracic echo (TTE) complete; Future Edema of lower extremity - spironolactone (Aldactone) 25 mg tablet; Take 0.5 tablets (12.5 mg) by mouth in the morning. - B-type natriuretic peptide; Future 1. CAD, Mild by cath in 2015 in the setting of abnormal stress test: He is doing well with no angina. Continue current aspirin and statin therapy. I reviewed his recent blood testing from February 2025. His LDL is at target. 2. Hypertension: This is not controlled. I will add spironolactone 12.5 mg once daily. Continue other current medications. I reviewed his recent labs and they show normal renal function. I will check a BMP in 2 weeks after spironolactone therapy. 3. Hyperlipidemia: LDL is at target. Continue current statin therapy. 4. Shortness of breath, lower extremity edema: Could be related to uncontrolled hypertension, but also could represent possible diastolic heart failure. I will check an echocardiogram. I will check BNP. I am adding spironolactone. Unless needed before I will see him in follow-up in 1 year. Follow up in about 1 year (around 03/14/2026). Ronda Thibodeaux MD TESTOST TOTAL Collected: 03/12/2025 8:39 AM Status: F Source: [facility] TYPE CODE TESTS RESULT OUT OF RANGE REFERENCE UNITS LAB 2986-8([facility]) TESTOSTERONE: MCNC:PT:SER/P LAS:QN: 348 Unknown [id number] ng/dL Result Comment: Adult male r eference interval is based on a population of healthy nonobese males (BMI <30) between 19 and 39 years old. Veronica et.al. JCEM 2017,102;[id number]. PMID: [id number]. Performed at: Lab[address] [id number] PhD Isabel Godwin Performed By: #### [id number] # ### [facility] [address] [place] [id number] PSA TOTAL Collected: 8:39 AM Status: F Source: [facility] TYPE CODE TESTS RESULT OUT OF RANGE REFERENCE UNITS LAB 1917-1(LOINC) PROSTATE SPECIFIC AG:MCNC:PT:S ER/PLAS:QN: 1.5 Normal 0.1-3.5 ng/mL Result Comment: The concentr ation of PSA determined by different manufacturers can vary due to differences in assay methods and reagent specificity. Values obtained from different assay methods cannot be used interchangeably. The methodology used for this result was chemiluminescence using [employer]'s Access [employer] PSA reagent. Performed By: #### [id number] #### [facility] [address] [place] [address] AMBULATORY VISIT SUMMARY Observed: 12/18 1:53 PM Status: F Source: [facility] Ambulatory Visit Summary FUNMI JULIO :1955 Visit Date:12/18/2024 Ambulatory Visit Instructions Your Diagnosis ED (erectile dysfunction) Hypogonadism male Acquired buried penis Your Care Team Attending Physician - Davey PARISH, Tania Angel Primary Care Physician - MS. TAMMY HARDY This Is Your Medications List anastrozole (anastrozole 1 mg Tab) testosterone (Jatenzo 237 mg oral capsule) Contact prescribing physician if questions or concerns albuterol (Albuterol (Eqv-Ventolin HFA) 90 mcg/inh inhalation aerosol) amlodipine (amLODIPine 10 mg Tab) aspirin (aspirin 81 mg Chew Tab) atorvastatin (atorvastatin 40 mg Tab) fexofenadine (fexofenadine 180 mg Tab) hydrochlorothiazide-lisinopril (hydrochlorothiazide-lisinopril 12.5 mg-20 mg Tab) isosorbide mononitrate (isosorbide [...] AM EDT With: Where: [facility] [address] [place] [address]- Monday 10:00 AM EDT With: Tania Mariscal MD Where: [facility] [address] [place] [address]- You Need to Schedule the Following Appointments Follow Up with Davey PARISH, Tania Angel, URL, URO When: In 3 months Comments: [...] Duration: 90 Days Refills: 1 Pickup at [facility] New testosterone (Jatenzo 237 mg oral capsule) 1 Capsules By Mouth 2 times a day Refills: 11 Pickup at [facility] Unchanged albuterol (Albuterol (Eqv-Ventolin HFA) 90 [...] prescribing physician if questions or concerns Unchanged hydrochlorothiazide-lisinopril (hydrochlorothiazide-lisinopril 12.5 mg-20 mg Tab) 1 Tablets By [...] physician if questions or concerns Pharmacy Information [facility]: [address], [place] [id number] [phone] Allergies oxyCODONE (SOB - Shortness of breath, Hives) Problems Ongoing - Any problem that you are currently receiving treatment for. Acquired buried penis Anemia Benign essential hypertension BMI 40.0-44.9, adult Calcified granuloma of lung Class 3 obesity Coronary arteriosclerosis Depressive disorder Diabetes Dyslipidemia ED (erectile dysfunction) Gastroesophageal reflux disease Hyperlipidemia Hypertensive disorder Hypogonadism male Impaired fasting glycemia Low libido Obstructive sleep apnea syndrome Screening for malignant neoplasm of colon Type 2 diabetes mellitus Umbilical hernia Patient Survey You may receive a survey via text or e-mail asking about your office visit. Please share your experience with us by completing your survey. We appreciate your feedback and thank you for choosing us for your care. Education Materials Hypogonadism, Male Male hypogonadism is a condition [...] Follow these instructions at home: ??? Take fmps-wch-uveiebu and prescription medicines only as told by your health care provider. ??? Eat foods that are high in fiber, such as beans, whole grains, and fresh fruits and vegetables. Limit foods that are high in fat and processed sugars, such as fried or sweet foods. ??? If you drink alcohol: ? Limit how much you have to 0???2 drinks a day. ? Know how much alcohol is in your drink. In the [place] one drink equals one 12 oz bottle of beer (355 mL), one 5 oz glass of wine (148 mL), or one 1??? oz glass of hard liquor (44 mL). [...] provider. Document Revised: 07/15/2021 Document Reviewed: 07/15/2021 [employer] Patient Education ??? 2023 [employer] UROLOGY OFFICE/CLINIC NOTE Observed: 12:03 PM Status: F Source: [facility] Urology Office/Clinic Note Chief Complaint testosterone levels [...] Estrogen 98, LH 10.2, Prolactin 10.9 Testosterone (200-276) 09/03/24 - 242 09/10/24 - 220 Discussed [...] is to get the labs at the [facility] point of getting the injections. Pt will [...] weight loss Follow-up With When Contact Information Davey PARISH, Tania Angel, URL, URO In 3 months Additional Instructions: [...] dysfunction) Gastroesophageal reflux disease Hyperlipidemia Hypertensive disorder Hypogonadism male Impaired fasting glycemia Low libido Obstructive sleep apnea syndrome Screening for malignant neoplasm of colon Type 2 diabetes mellitus Umbilical hernia Historical No qualifying data Procedure/Surgical History Colonoscopy (05/29/2024), Colonoscopy (04/08/2014), Cardiac catheterization, Repair of umbilical hernia, Tonsillectomy and adenoidectomy. Medications Albuterol (Eqv-Ventolin HFA) 90 mcg/inh inhalation aerosol, 2 puff(s), Inhalation, q4hr amLODIPine 10 mg Tab, 10 mg= 1 tab(s), Oral, Daily aspirin 81 mg Chew Tab, 81 mg= 1 tab(s), Chewed, Daily atorvastatin 40 mg Tab, 40 mg= 1 tab(s), Oral, Daily fexofenadine 180 mg Tab hydrochlorothiazide-lisinopril 12.5 mg-20 mg Tab, 1 tab(s), Oral, BID isosorbide mononitrate 60 mg ER Tab, 60 mg= 1 tab(s), Oral, qAM metformin 850 mg Tab, 850 mg= 1 tab(s), Oral, qAM metoprolol 100 mg ER Tab, 100 mg= 1 tab(s), Oral, Daily omeprazole 20 mg Cap-DR, 20 mg= 1 cap(s), Oral, Daily Ozempic 2 mg/3 mL (0.25 mg or 0.5 mg dose) subcutaneous solution, 0.5 mg, SubCutaneous, qWeek Paxil 40 mg Tab, 40 mg= 1 tab(s), Oral, Daily Allergies oxyCODONE (SOB - Shortness of breath, Hives) Social History Alcohol Current. Beer. Several times per day., 12/17/2024 Substance Abuse - Denies Substance Abuse, 04/16/2024 Never., 12/18/2024 Tobacco Former smoker, quit more than 30 days ago, quit at age 29 Tobacco Use:. Cigarettes, 12/18/2024 Family History Cardiac arrhythmia: Brother. Crohn's disease: Sister. Diabetes mellitus type 2: Mother. Heart disease: Brother. Hypertension: Sister and Brother. Primary malignant neoplasm of prostate: Brother. Stroke: Mother and Sister. Immunizations Vaccine Date Status influenza virus vaccine, inactivated 09/28/2023 Recorded SARS-CoV-2 (COVID-19) mRNA-1273 vaccine 10/23/2021 Recorded influenza virus vaccine, inactivated 09/12/2021 Recorded SARS-CoV-2 (COVID-19) mRNA-1273 vaccine 03/06/2021 Recorded SARS-CoV-2 (COVID-19) mRNA-1273 vaccine 02/06/2021 Recorded influenza virus vaccine, inactivated 08/26/2020 Recorded influenza virus vaccine, inactivated 11/18/2019 Recorded zoster vaccine, inactivated 09/11/2018 Recorded influenza virus vaccine, inactivated 08/14/2018 Recorded zoster vaccine, inactivated 03/10/2018 Recorded influenza virus vaccine, inactivated 09/15/2017 Recorded influenza virus vaccine, inactivated 10/16/2015 Recorded influenza virus vaccine, inactivated 08/05/2013 Recorded influenza virus vaccine, inactivated 08/09/2012 Recorded influenza virus vaccine, inactivated 08/12/2011 Recorded Lab Results Ambulatory Point of Care Results Bilirubin Urine Dipstick: Negative (12/18/24 11:42:00) Blood Urine Dipstick: Negative (12/18/24 11:42:00) Glucose Urine Dipstick: Negative (12/18/24 11:42:00) Ketones Urine Dipstick: Negative (12/18/24 11:42:00) Leukocytes Urine Dipstick: Negative (12/18/24 11:42:00) Nitrite Urine Dipstick: Negative (12/18/24 11:42:00) Protein Urine Dipstick: 1+ (30 mg/dl) (12/18/24 11:42:00) Specific [place] Urine Dipstick: >=1.030 (12/18/24 11:42:00) Urine Appearance Urine Dipstick: Clear (12/18/24 11:42:00) Urine Color Urine Dipstick: Dark yellow (12/18/24 11:42:00) Urobilinogen Urine Dipstick: Normal 0.2-1 EU/dl (12/18/24 11:42:00) pH Urine Dipstick: 6.5 (12/18/24 11:42:00) Result Comment: Electronical ly Signed By: Tania Mariscal MD\.br\Date and Time Signed: 12/18/24 12:10 EST\.br\Electronically Co-Signed By: Eileen Moody\.br\Date and Time Co-Signed: 12/18/24 12:05 EST PATIENT EDUCATION Observed: 12/18/2024 12:03 PM Status: F Source: [facility] Patient Education Urology Hypogonadism, Male Male hypogonadism [...] Follow these instructions at home: ??? Take tbwz-yed-rajcczh and prescription medicines only as told by [...] provider. Document Revised: 07/15/2021 Document Reviewed: 07/15/2021 [employer] Patient Education ? 2023 [employer]. UROLOGY OFFICE/CLINIC NOTE Observed: 12/2023 11:16 AM Status: C Source: [facility] Urology Office/Clinic Note Chief Complaint New patient [...] testosterone (7-11 AM). Plans to go to [facility]. -If low, will confirm with repeat T, [...] checks PSA which is low. Risks of elevation with TRT discussed Follow-up With When Contact Information Davey PARISH, Tania Angel, URL, URO [address], [place] [address]- [phone] Additional Instructions: 6 mos (possible T level) Patient Education Erectile Dysfunction IKatja, personally scribed for Dr. Mariscal on 08/28/2024 11:16:42. . Documentation recorded by the scribe, Katja Street, accurately reflects the services(s) I performed and decisions made by me. Authenticated by Dr. Mariscal on 08/28/2024 11:33:55. Problem List/Past Medical History Ongoing Acquired buried penis Anemia Benign essential hypertension BMI 40.0-44.9, adult Calcified granuloma of lung Class 3 obesity Coronary arteriosclerosis Depressive disorder Diabetes Dyslipidemia ED (erectile dysfunction) Gastroesophageal reflux disease Hyperlipidemia Hypertensive disorder Impaired fasting glycemia Low libido Obstructive sleep apnea syndrome Screening for malignant neoplasm of colon Type 2 diabetes mellitus Umbilical hernia Historical No qualifying data Procedure/Surgical History Colonoscopy (05/29/2024), Colonoscopy (04/08/2014), Cardiac catheterization, Repair of umbilical hernia, Tonsillectomy and adenoidectomy. Medications Albuterol (Eqv-Ventolin HFA) 90 mcg/inh inhalation aerosol, 2 puff(s), Inhalation, q4hr amLODIPine 10 mg Tab, 10 mg= 1 tab(s), Oral, Daily aspirin 81 mg Chew Tab, 81 mg= 1 tab(s), Chewed, Daily atorvastatin 40 mg Tab, 40 mg= 1 tab(s), Oral, Daily fexofenadine 180 mg Tab hydrochlorothiazide-lisinopril 12.5 mg-20 mg Tab, 1 tab(s), Oral, BID isosorbide mononitrate 60 mg ER Tab, 60 mg= 1 tab(s), Oral, qAM metformin 850 mg Tab, 850 mg= 1 tab(s), Oral, qAM metoprolol 100 mg ER Tab, 100 mg= 1 tab(s), Oral, Daily omeprazole 20 mg Cap-DR, 20 mg= 1 cap(s), Oral, Daily Ozempic 2 mg/3 mL (0.25 mg or 0.5 mg dose) subcutaneous solution, 0.5 mg, SubCutaneous, qWeek Paxil 40 mg Tab, 40 mg= 1 tab(s), Oral, Daily Allergies oxyCODONE (SOB - Shortness of breath, Hives) Social History Alcohol Current, Beer, Several times per day, 08/28/2024 Substance Abuse - Denies Substance Abuse, 04/16/2024 Tobacco Former smoker, quit more than 30 days ago, quit at age 29 Tobacco Use:. Smokeless tobacco user within last 30 days Smokeless Tobacco Use:. Cigarettes, Oral, 1 per day. Started age 20.0 Years. Stopped age 29 Years. Yes, 08/28/2024 Family History Cardiac arrhythmia: Brother. Crohn's disease: Sister. Diabetes mellitus type 2: Mother. Heart disease: Brother. Hypertension: Sister and Brother. Primary malignant neoplasm of prostate: Brother. Stroke: Mother and Sister. Immunizations Vaccine Date Status influenza virus vaccine, inactivated 09/28/2023 Recorded SARS-CoV-2 (COVID-19) mRNA-1273 vaccine 10/23/2021 Recorded influenza virus vaccine, inactivated 09/12/2021 Recorded SARS-CoV-2 (COVID-19) mRNA-1273 vaccine 03/06/2021 Recorded SARS-CoV-2 (COVID-19) mRNA-1273 vaccine 02/06/2021 Recorded influenza virus vaccine, inactivated 08/26/2020 Recorded influenza virus vaccine, inactivated 11/18/2019 Recorded zoster vaccine, inactivated 09/11/2018 Recorded influenza virus vaccine, inactivated 08/14/2018 Recorded zoster vaccine, inactivated 03/10/2018 Recorded influenza virus vaccine, inactivated 09/15/2017 Recorded influenza virus vaccine, inactivated 10/16/2015 Recorded influenza virus vaccine, inactivated 08/05/2013 Recorded influenza virus vaccine, inactivated 08/09/2012 Recorded influenza virus vaccine, inactivated 08/12/2011 Recorded Lab Results Ambulatory Point of Care Results Bilirubin Urine Dipstick: Negative (08/28/24 10:39:00) Blood Urine Dipstick: Negative (08/28/24 10:39:00) Glucose Urine Dipstick: Negative (08/28/24 10:39:00) Ketones Urine Dipstick: Negative (08/28/24 10:39:00) Leukocytes Urine Dipstick: Negative (08/28/24 10:39:00) Nitrite Urine Dipstick: Negative (08/28/24 10:39:00) Protein Urine Dipstick: Negative (08/28/24 10:39:00) Specific [place] Urine Dipstick: 1.025 (08/28/24 10:39:00) Urine Appearance Urine Dipstick: Clear (08/28/24 10:39:00) Urine Color Urine Dipstick: Yellow (08/28/24 10:39:00) Urobilinogen Urine Dipstick: Normal 0.2-1 EU/dl (08/28/24 10:39:00) pH Urine Dipstick: 6 (08/28/24 10:39:00) If low T is confirmed, pt wishes to start Jatenzo PO BID. Insurance coverage discussed. Need for continued lab monitoring discussed Result Comment: Electronical ly Signed By: Davey PARISH, Tania Angel\.br\Date and Time Signed: 08/28/24 11:36 EDT AMBULATORY VISIT SUMMARY Observed: 08/28 11:13 AM Status: F Source: [facility] Ambulatory Visit Summary FUNMI JULIO :1955 Visit Date:08/28/2024 Ambulatory Visit Instructions Your Diagnosis ED (erectile dysfunction) Low libido Acquired buried penis Screening PSA (prostate specific antigen) Your Care Team Attending Physician - Davey PARISH, Tania Angel Primary Care Physician - MS. TAMMY HARDY Referring Physician - DAVID, MS. TAMMY BADILLO This Is Your Medications List Contact prescribing physician if questions or concerns albuterol (Albuterol (Eqv-Ventolin HFA) 90 mcg/inh inhalation aerosol) amlodipine (amLODIPine 10 mg Tab) aspirin (aspirin 81 mg Chew Tab) atorvastatin (atorvastatin 40 mg Tab) fexofenadine (fexofenadine 180 mg Tab) hydrochlorothiazide-lisinopril (hydrochlorothiazide-lisinopril 12.5 mg-20 mg Tab) isosorbide mononitrate (isosorbide [...] Follow-Up Appointments Monday 9:45 AM EDT With: Davey PARISH, Tania Angel Where: [facility] [address] [place] [address] [place] [address]- You Need to Schedule the Following Appointments Follow Up with Davey PARISH, Tania Angel, URL, URO When: Where: [address] [place] [address] [phone] Medications What How Much When Instructions Unchanged [...] prescribing physician if questions or concerns Unchanged hydrochlorothiazide-lisinopril (hydrochlorothiazide-lisinopril 12.5 mg-20 mg Tab) 1 Tablets By [...] these instructions at home: Medicines ? Take swbp-gnd-gddnnkv and prescription medicines only as told by [...] help quitting, ask your health care provider. ? Before using a vacuum pump, read the instructions that come with the pump and discuss any questions with your health care provider. ? Keep all follow-up visits. This is important. Contact a health care provider if: ? You feel nauseous. ? You are vomiting. ? You get sudden headaches while taking ED medicines. ? You have any concerns about your sexual health. Get help right away if: ? You are taking oral or injectable medicines and you have an erection that lasts longer than 4 hours. If your health care provider is unavailable, go to the nearest emergency room for evaluation. An erection that lasts much longer than 4 hours can result in permanent damage to your penis. ? You have severe pain in your groin or abdomen. ? You develop redness or severe swelling of your penis. ? You have redness spreading at your groin or lower abdomen. ? You are unable to urinate. ? You experience chest pain or a rapid heartbeat (palpitations) after taking oral medicines. These symptoms may represent a serious problem that is an emergency. Do not wait to see if the symptoms will go away. Get medical help right away. Call your local emergency services (911 in the [place] Do not drive yourself to the hospital. Summary ? Erectile dysfunction (ED) is the inability to get or keep an erection during sexual intercourse. ? This condition is diagnosed based on a physical exam, your symptoms, and tests to determine the cause. Treatment varies depending on the cause and may include medicines, hormone therapy, surgery, or a vacuum pump. ? You may need follow-up visits to make sure that you are using your medicines or devices correctly. ? Get help right away if you are taking or injecting medicines and you have an erection that lasts longer than 4 hours. This information is not intended to replace advice given to you by your health care provider. Make sure you discuss any questions you have with your health care provider. Document Revised: 02/09/2022 Document Reviewed: 02/09/2022 Elsevier Patient Education ? 2023 [employer]. PATIENT EDUCATION Observed: 08/28/2024 11:12 AM Status: F Source: [facility] Patient Education Urology Erectile Dysfunction Erectile dysfunction [...] these instructions at home: Medicines ? Take nxtt-yrj-vqgojcd and prescription medicines only as told by [...] help quitting, ask your health care provider. ? Before using a vacuum pump, read the instructions that come with the pump and discuss any questions with your health care provider. ? Keep all follow-up visits. This is important. Contact a health care provider if: ? You feel nauseous. ? You are vomiting. ? You get sudden headaches while taking ED medicines. ? You have any concerns about your sexual health. Get help right away if: ? You are taking oral or injectable medicines and you have an erection that lasts longer than 4 hours. If your health care provider is unavailable, go to the nearest emergency room for evaluation. An erection that lasts much longer than 4 hours can result in permanent damage to your penis. ? You have severe pain in your groin or abdomen. ? You develop redness or severe swelling of your penis. ? You have redness spreading at your groin or lower abdomen. ? You are unable to urinate. ? You experience chest pain or a rapid heartbeat (palpitations) after taking oral medicines. These symptoms may represent a serious problem that is an emergency. Do not wait to see if the symptoms will go away. Get medical help right away. Call your local emergency services (911 in the [place] Do not drive yourself to the hospital. Summary ? Erectile dysfunction (ED) is the inability to get or keep an erection during sexual intercourse. ? This condition is diagnosed based on a physical exam, your symptoms, and tests to determine the cause. Treatment varies depending on the cause and may include medicines, hormone therapy, surgery, or a vacuum pump. ? You may need follow-up visits to make sure that you are using your medicines or devices correctly. ? Get help right away if you are taking or injecting medicines and you have an erection that lasts longer than 4 hours. This information is not intended to replace advice given to you by your health care provider. Make sure you discuss any questions you have with your health care provider. Document Revised: 02/09/2022 Document Reviewed: 02/09/2022 Elsevier Patient Education ? 2023 Elsevier Inc. ALLERGIES DATE TYPE / CODE NAME / CODE REACTION SEVERITY SOURCE 07/20/2022 DRUG INGREDI/8063274 03(SNOMED CT) OXYCODONE [facility] /[id number](SN OMED CT) oxyCODONE [id number] 9 [facility] ENCOUNTERS ADMIT/DISCHARGE ACCOUNT NUMBER ADMITTING ENCOUNTER CLASS LOCATION SOURCE 05/13/2025/05/13/20 [id number] Ambulatory Building:[facility] 03/19/2025/03/19/20 [id number] Ambulatory [place]: Exam 1 [facility] 03/14/2025/03/14/20 25 [id number] Ambulatory Building:CC B [facility] 03/12/2025 [id number] Tania Mariscal Ambulatory [facility]:FT LAB [facility] 03/12/2025/03/12/20 25 [id number] Tania Mariscal Ambulatory [facility]:FT [facility] 03/12/2025/03/12/20 [id number] Ambulatory [place] [facility] 02/10/2025/02/11/20 [id number] Ambulatory Building:[facility] 12/18/2024/12/18/19 25 [id number] Ambulatory [place]: Exam 2 [facility] 11/07/2024/11/07/20 24 [id number] Ambulatory Building:[facility] 09/04/2024/09/04/20 24 [id number] Ambulatory Building:[facility] 08/28/2024/08/28/20 24 [id number] Ambulatory [facility] [place]:[facility] [place]: Exam 1 [facility] 08/27/2024/08/27/20 24 [id number] Ambulatory EU Kev [place]ding:[place] [facility] PAYERS ENCOUNTER GUARANTOR PAYER SUBSCRIBER SOURCE 05/13/2025 FUNMI CANTU: [id number] [place], [place] [address]Udb: (HP) Primary Insurance:AETNA MEDICARE ADVANTAGEPolicy Number: [id number] Date:2022-12-28 FUNMI FLAHERTYOB: [id number] [place] [address] [facility] 03/19/2025 FUNMI FLAHERTYOB: [id number] [place] RDTel: ~~(4 1 (HP) Primary Insurance:AETNAPolicy Number: [id number] Date:4340-03-45[address] [place] [address]DI: FUNMI COOK [facility] 03/14/2025 Primary Insurance:AETNA MEDICARE ADVANTAGEPolicy Number: [id number] Date:2022-12-28 FUNMI FLAHERTYOB: [id number] [place] [address] [facility] 03/12/2025 FUNMI FLAHERTYOB: [id number] [place] RDTel: ~~(4 1 (HP) Primary Insurance:AETNAPolicy Number: [id number] Date:0223-43-43[address] [place] [address]HC: FUNMI COOK [facility] 03/12/2025 FUNMI FLAHERTYOB: [id number] [place] RDTel: ~~(4 1 (HP) Primary Insurance:AETNAPolicy Number: [id number] Date:3992-64-70[address], [place] [address]XO: FUNMI COOK [facility] 02/10/2025 FUNMI Burnett MAGDYLDOB: [id number] [place], [place] [address]Cac: (HP) Primary Insurance:AET MEDICARE ADVANTAGEPolicy Number: [id number] Date:2022-12-28 YANELIS MAGDYLDOB: [id number] [place] [address] [facility] EP[facility] 12/18/2024 YANELIS MAGDYLDOB: [id number] [place] RDTel: ~~(4 1 (HP) Primary Insurance:AETNAPolicy Number: [id number] Date:4951-23-80[id number] [place] [address]SK: FUNMI COOK [facility] 11/07/2024 YANELIS MAGDYLDOB: [id number] [place], [place] [address]Yah: (HP) Primary Insurance:AETNA MEDICARE ADVANTAGEPolicy Number: [id number] Date:2022-12-28 YANELIS MAGDYLDOB: [id number] [place] [address] [facility] EPIC 09/04/2024 YANELIS MAGDYLDOB: [id number] [place] [address]Yvq: (HP) [facility]Policy Number: [id number] Date:2022-12-28 YANELIS MAGDYLDOB: [id number] [place] [address] [facility] EP[facility] 08/28/2024 FUNMI CURRANLDOB: [id number] [place] RDTel: ~~(4 1 (HP) Primary Insurance:AETNAPolicy Number: [id number] Date:1812-58-13[address] [place] [address]XZ: FUNMI Burnett NDLOW [facility] 08/27/2024 FUNMI FLAHERTYOB: [id number] [place] RDTel: ~~(4 1 (HP) Primary Insurance:AETNAPolicy Number: [id number] Date:7367-55-40YY [address] [place] [address]XZ: [facility]ELIS NDJOLENEPar[facility]
--- OUTSIDE RECORDS SUMMARY | 2025-08-13 06:17 | XMS_ITS | Continuity of Care Document ---
Author Organization [facility] [place] Address [address] [place] [address] Phone Care Team Providers Care Satellite Dish Installer Name Role Phone NON STAFF Primary Care Provider Perri Lou DO Attending Provider Leal SolorzanoC Primary Care Provider Lela Solorzano NP-Nandini Attending Provider Care Teams Patient Care Team Team Status: Active Member Role Status Dates Lela Solorzano NP-Nandini Primary Care Provider Active Visit Care Team Team Status: Inactive Member Role Status Dates NON STAFF Primary Care Provider Active Start: June 25, 2025 End: June 25, 2025 Perri Og DO Attending Provider Active Sta rt: June 25, 2025 End: June 25, 2025 Patient Care Team Team Status: Inactive Member Role Status Dates Lela Solorzano NP-Nandini Primary Care Provider Active Start: August 13, 2025 End: August 13, 2025 JULEE Sanders Attending Provider Active Start: August 13, 2025 End: August 13, 2025 Chief Complaint and Reason for Visit Chief Complaint Admit Date Sleep F/u June 25, 2025 1:16 pm Established Patient August 13, 2025 9:29am Reason for Visit Admit Date Hypersomnia June 25, 2025 1:16 pm Obesity June 25, 2025 1:16 pm ZENON (obstructive sleep apnea) June 25, 2025 1:16pm Snoring June 25, 2025 1:16 pm CAD in [place] artery August 13 9:29am Chronic lower back pain August 13, 2025 9:29am Essential hypertension August 13, 025 9:29am GERD without esophagitis August 13, 2025 9:29am Morbid obesity due to excess calories Se ptember 2024 9:29am ZENON (obstructive sleep apnea) August 13, 2025 9:29am Type 2 diabetes mellitus wit hout complication, without long-term current us August 13, 2025 9:29am Reason for Referral Referring Provider Name Referring Provider Address Referring Provider Phone Referral Date Requested Appointment Date Referral Reason Lela Nails Jeanine [address] [place] [address] Work Phone: August 13, 2025 M54.50 - Low back pain, unspecified,G 89.29 - Other chronic pain July M54.50 - Low back pain, unspecified,G 89.29 - Other chronic pain Allergies, Adverse Reactions, Alerts Allergen Type Severity Reaction Last Updated Verified Status oxycodone Allergy Unknown hives August 10, 2025 7:42pm Ye s Active Social History Smoking Status Unknown if ever smoked Observation Status Observation Response Date of Response Legal Sex Male (finding) Sex Assigned At Male November Family History Relationship Condition Age at Onset Recorded Date/T annemarie father Unknown mother Unknown Diabetes mellitus Unknown Heart disease Unknown History of stroke Unknown Problems Active Problems Medical Problem Onset Date Status Encounter for subsequent [facility] wellness visit (AWV) in Medicare patient Unknown Active Major depression, recurrent Unknown Acti ve ZENON (obstructive sleep apnea) Unknown Ac tive Calcified granuloma of lung Unknown Acti ve Prostate cancer screening Unknown Active CAD in [place] artery Unknown Active Chronic lower back pain Unknown Active Pulmonary fibrosis, unspecified Unknown Active Erectile dysfunction Unknown Active Acquired buried penis Unknown Active Former tobacco use Unknown Active Umbilical hernia Unknown Active Mixed hyperlipidemia Unknown Active Mild cognitive impairment Unknown Active Hypogonadism in male Unknown Active Essential hypertension Unknown Active Morbid obesity due to excess calories Unknown Active Type 2 diabetes mellitus wit hout complication, without long-term current use of insulin Unknown Active GERD without esophagitis Unknown Active History of tonsillectomy Unknown Active Calcified lymph nodes Unknown Active COPD (chronic obstructive pulmonary disease) Unk nown Active Medications Medication Status Dose Units Route Directions Qty Days St art Date Stop Date End Date Instructions Adherence Atorvastati n 40 mg tablet Active 40 MG PO Daily June 25, 2025 12:00a m Complies with drug therapy Anastrozole 1 mg tablet Discont inued 1 MG PO Daily June 25, 2025 12:00a m Septe mber 2024 10:00 am Lisinopril- Hydrochloro thiazide 20-12.5 mg tablet Active 1 TAB PO Daily June 25, 2025 12:00a m Complies with drug therapy Metoprolol Succinate 100 mg tablet extended release 24 hr Active MG PO June 25, 2025 12:00a m Complies with drug therapy Metformin 850 mg tablet Discont inued 850 MG PO Daily June 25, 2025 12:00 m [facility] 2024 7:48p m Fexofenadin e 180 mg tablet Active 180 MG PO Daily June 25, 2025 12:00a m Complies with drug therapy Spironolact one 25 mg tablet Discont inued 25 MG PO Daily June 25, 2025 12:00a m [facility] 2024 7:49p m Isosorbide Mononitrate 60 mg tablet extended release 24 hr Active MG PO June 25, 2025 12:00a m Complies with drug therapy Amlodipine 10 mg tablet Active 10 MG PO Daily June 25, 2025 12:00a m Complies with drug therapy Omeprazole 20 mg capsule,del ayed release(DR/ EC) Active 20 MG PO Daily June 25, 2025 12:00a m Complies with drug therapy Aspirin 81 mg tablet Active 81 MG PO Daily June 25, 2025 12:00a m Complies with drug therapy Albuterol Sulfate 90 mcg/actuati on HFA aerosol inhaler Active 1 INH INHALA TION Every 6 hours June 25, 2025 12:00a m Complies with drug therapy Paroxetine Hcl 40 mg tablet Active 40 MG PO Once June 25, 2025 12:00a m Complies with drug therapy Semaglutide (Ozempic) 1 mg/dose (4 mg/3 mL) pen injector Discont inued 1 MG SUBCUT every week June 25, 2025 12:00a m [facility] 2024 10:01 am Cpap (Continuous Positive Airway Pressure) unit Active 0 .Route 1 June 25, 2025 12:00a m New mask and supplies x 1 year, Dx ZENON Patient would like the ramp turned off Metformin 850 mg tablet Active 850 MG PO Twice daily 2024 12:00a m Complies with drug therapy Spironolact one 25 mg tablet Active 12.5 MG PO Daily 2024 12:00a m Complies with drug therapy Vital Signs Vital Reading Result Reference Range Collection Date/Time Height 72 [in_i] June 25, 2025 1:32pm Weight 143.33 kg June 25, 2025 1:32pm Heart Rate 77 /min 60-100 June 25, 2025 1:32pm Oxygen saturation by Pulse oximetry 91 % 95-100 June 25, 2025 1:32 pm BP Systolic 128 mm[Hg] 100-140 June 25, 2025 1:32pm BP Diastolic 88 mm[Hg] 60-100 June 25, 2025 1:32pm BMI (Body Mass Index) 42.8 kg/m2 May 292024 1:32pm Height 72 [in_i] August 13, 2025 9:45am Weight 146.11 kg August 13, 2025 9:45am Body Temperature 96.5 [degF] 97.6-99.0 July 282024 9:45am Heart Rate 83 /min 60-100 August 13, 2025 9:45am Respiratory rate 24 /min 12-24 July 282024 9:45am Oxygen saturation by Pulse oximetry 94 % 95-100 August 13, 2025 9:45am BP Systolic 148 mm[Hg] 100-140 August 13, 2025 9:45am BP Diastolic 86 mm[Hg] 60-100 August 13, 2025 9:45am BMI (Body Mass Index) 43.7 kg/m2 2024 9:45am Advance Directives Advance Directive Response Recorded Date/ Time Advance Directives No June 25 1:16pm Insurance Providers Guarantor Jayson Paul Address [address] [place] [address] Contact Info. Home Phone: Payer Policy Id Subscriber's Name Subscriber Id Effectiv e Date Expiration Date [employer] [facility] [id number] Jayson Paul [id number] Encounters Encounter Location(s) Arrival/Admit Date Discharge/Depart Date Provider(s) Departed Physician/Prov ider Office Visit -[facility] Neurology [place] June 25, 2025 1:16pm June 25, 2025 1:58pm Perri Og , Departed Physician/Prov ider Office Visit -[facility] Family Medicine [place] August 13, 2025 9:29am August 13, 2025 10:15am JULEE Sanders Recent Diagnosis Onset Date Admit Date Hypersomnia Unknown June 25, 2025 1:16pm Obesity Unknown June 25, 2025 1:16pm ZENON (obstructive sleep apnea) Unknown Ju ly 2024 1:16pm Snoring Unknown June 25, 2025 1:16pm CAD in [place] artery Unknown July 282024 9:29am Chronic lower back pain Unknown e r 2024 9:29am Essential hypertension Unknown August 13, 2025 9:29am GERD without esophagitis Unknown er 2024 9:29am Morbid obesity due to excess calories Unknown August 13, 2025 9:29am ZENON (obstructive sleep apnea) Unknown Se ptember 2024 9:29am Type 2 diabetes mellitus wit hout complication, without long-term current us Unknown August 13, 2025 9:29 am Assessments Diagnosis Onset Date Resolution Status Admit Date Hypersomnia deleted June 25 1:16pm Obesity deleted June 25 1:16pm ZENON (obstructive sleep apnea) delete d June 25, 2025 1:16pm Snoring deleted June 25 1:16pm CAD in [place] artery acute Jul 9:29am Chronic lower back pain acute S eptemb2024 9:29am Essential hypertension acute Se ptember 2024 9:29am GERD without esophagitis acute August 13, 2025 9:29am Morbid obesity due to excess calories acute August 13, 2025 9:29am ZENON (obstructive sleep apnea) acute August 13, 2025 9:29am Type 2 diabetes mellitus without complication, without long-term current us acute July 282024 9:29am Plan of Treatment Author Perri Og [facility] Authored June 25, 2025 3:02 pm 69-year-old male with a gomez re obstructive sleep apnea leading to daytime hypersomnolence and snoring. This is well-controlled with the use of the CPAP machine and he is compliant with that. He is using 100% time greater than 4 hours with an average nightly usage of 11 hours and 37 minutes and residual AHI of 8.3. The patient's ramp was turned down at the last visit however he would like it turned off and see if that works better for him as he feels it takes too long to ramp up still. He is to call us if he wants it turned back on. Patient does have underlying obesity and spending way too much time in bed. I do not suspect he is sleeping this full-time but he has machine on. He needs to only spend about 9 hours in bed at the most and get up and be active the rest of the day. This is likely also contributing to his back pain and obesity. He was previously on Ozempic but it got too expensive so he did not continue it. They could certainly look into the generic semaglutide. Likely stems somewhat from his large pannus. Patient is getting great benefit from the machine and seeing good response. undefined Plan Compliance data was reviewed as above and he is compliant We will send an order for new supplies for the next year and for his ramp to be turned off he would then need to call us if for some reason he wants to turn back on We just discussed getting up and out of bed he has been he way too much time in bed He needs to be much more aggressive with diet exercise weight loss the weight loss would likely help with that much of his back pain he is not on a diet program we did talk about weight watchers and counting protein macros and trying to get 13 g of protein in it every meal. We talked about chair exercises including chair kickboxing. The patient was counseled on proper sleep hygiene and adequate hours of sleep. The patient was counseled on the risks of stroke, PA, and sudden with ZENON, along with the need for compliance with the CPAP/BiPAP treatment. The diagnosis was all discussed with the patient. All questions were answered and they agreed with the treatment plan. Patient will call if there are any new issues or questions. Author Lela Solorzano [facility] Authored August 13, 2025 10:14am Check blood sugars daily, no tify the office if <70 or > 200. Take medications (pills or insulin) as directed. Monitor for s/s of low blood sugar (sweaty, dizziness, nausea, vomiting, or shakiness). Watch for increase thirst, urination, and appetite as these can be signs of high blood sugar. Inspect your feet frequently monitor for open wounds, wear proper fitting shoes as well. Pt should attempt to remain as physical active as chronic conditions allow, as well as trying to follow a diet lower in carbohydrates, and simple sugars. current meds: asa, demarco, metformin a1c: 6.9% 08/13/25, 7.7% 05/13/25 Please check blood pressure daily and record DASH diet Limit caffeine Take medication as directed Contact office if chest pain, pressures, dizziness, shortness of breath, swelling in the legs Recommend slow position changes if you develop dizziness with position changes current meds: imdur, amlodipine, demarco/HCTZ, b denice, aldactone Recommendations: freq small meals, nothing to eat or drink at least 2 hours prior to bed, limit caffeine, alcohol, as well as spicy foods. Meds to limit or avoid if possible: NSAIDS Elevate the HOB if possible current meds:omeprazole current meds: asa, imdur, b denice, statin aggressive risk factor control Discussed with patient their BMI (actual vs recommended). We have discussed lifestyle modifications: attempts to perform phsyical activity as chronic conditions allow, monitor dietary intake: increasing protein/fruits/veggies and lowering carb intake (unless contraindicated). Limit sodas, juices, sugary drinks, as well as alcohol consumption. .You have a diagnosis of ZENON it is recommended that you wear your PAP device anytime while in bed sleeping. Not using the PAP device can increase your risk of elevated or uncontrolled blood pressure, atrial fibrillation, heart attack, stroke, and sudden . Compliance with PAP:yes How many hours of use per night:10 Do you feel refreshed in the morning: Company that supplies your machine, tubing/filters etc:[employer] Doctor that manages your ZENON:april order xray and PT fu in 6 weeks Future Tests Future scheduled test information is unavailable Pending Tests Test Name Ordered Date Scheduled Date XR lumbar spine 2-3V* August 13, 2025 10:12 am Future Visits Future appointment information is unavailable Referrals to Other Providers Reason for Referral Referral Start Date Provider Provider Contact Information Provider Address M54.50 - Low back pain, unspecified,G89 .29 - Other chronic pain August 13, 2025 [facility] Work Phone: [phone] [facility] [address] Future Procedures Future procedure information is unavailable Future Medications Future medication information is unavailable Patient Instructions Instruction Admit Date Low back pain in adults August 13, 2025 9:29am Hospital Discharge Instructions Ambulatory Orders* Referral to PT (Nima Flores) Time Frame: 08/13/25, Location: None Selected
--- OUTSIDE RECORDS SUMMARY | 2025-08-25 10:19 | XMS_ITS | Encounter Summary ---
Author Organization [employer] Address [id number] [address] [place] [address] Care Team Providers Care Cash Accountant Name Role Phone Rachid Henning MD Primary Care Provider [phone] Encounter Details Date Type Department Care Team (Late st Contact Info) Description 04/04/2022 Orders Only [facility] [address] [place] [address] Emeli Cardenas CMA Essential hypertension [...] - 11 SUNQUEST 01/12/2022 us Reginaldo Keene EXCHANGE TELLER-CRM MARKETING MANAGER LAB BLOOD ORDERABLES F inal Result SUNQUEST [...] documented as of this encounter Care Teams Cash Accountant Relationship Specialty Start Date End Date Rachid Henning MD PCP - General Family Medicine 04/03/23 documented as of this encounter
--- OUTSIDE RECORDS SUMMARY | 2025-08-25 10:19 | XMS_ITS | Encounter Summary ---
Author Organization [employer] Address [id number] [address] [place] [address] Care Team Providers Care Deburr Technician Name Role Phone Rachid Henning MD Primary Care Provider [phone] Encounter Details Date Type Department Care Team (Late st Contact Info) Description 12/31/2020 Telephone [facility] [address] [place] [address] Reginaldo Keene, [place] TECHNICIAN-EVENT PRODUCER [address] [place] [address] Social History Tobacco Use Types [...] on filedocumented in this encounter Care Teams Deburr Technician Relationship Specialty Start Date End Date Rachid Henning MD PCP - General Family Medicine 04/03/23 documented as of this encounter
--- OUTSIDE RECORDS SUMMARY | 2025-08-25 10:19 | XMS_ITS | Encounter Summary ---
Author Organization [employer] Address [id number] [address] [place] [address] Care Team Providers Care Toy Assembler Wood Name Role Phone Rachid Henning MD Primary Care Provider [phone] Encounter Details Date Type Department Care Team (Late st Contact Info) Description 04/13/2021 [facility] [address] [place] [address] Ref Prov, [place] [address] Social History Tobacco Use Types Packs/Day Years [...] inal Result [facility] EXTERNAL NON-INTERFACED REF LAB [address] [place] [address] documented in this encounter Visit Diagnoses Not on filedocumented in this encounter Additional Health Concerns Assessment Noted Time PHQ-9 Depression Total Score: 0 01/11/20 21 8:00 AM EST documented as of this encounter Care Teams Toy Assembler Wood Relationship Specialty Start Date End Date Rachid Henning MD PCP - General Family Medicine 04/03/23 documented as of this encounter
--- OUTSIDE RECORDS SUMMARY | 2025-08-25 10:19 | XMS_ITS | Encounter Summary ---
Author Organization [facility] Address [address] [place] [address] Care Team Providers Care Chief Controller Center Name Role Phone Shaikh МАРИНА Acevedo Primary Care Provider [phone] Tammy Hardy PROJECT CONTROLS SPECIALIST Unavailable [phone] Rachid Henning MD Primary Care Provider [phone] Shaikh МАРИНА Acevedo Unavailable [phone] Encounter Details Date Type Department Care Team (Late st Contact Info) Description 03/06/2024 Clinisync Result Encounter [facility] External Department Unsolicited Shaikh Acevedo MD [address] [place] [address] Social History Tobacco Use Types Packs/Day Years [...] EDT Narrative 03/06/2024 9:51 [place] [address] CT Scan Report Signed Patient: JAYSON PAUL MR#: [id number] : 1955 Acct:[id number] Age/Sex: 68 / M ADM Date: 03/06/24 Loc: CT Attending Dr: Shaikh Kristina Diane Ordering Physician: Shaikh Roxi Acevedo Date of Service: 03/06/24 Procedure(s): CT chest wo con Accession Number(s): [id number] cc: Shaikh Roxi Acevedo The [place] [address] Patient Name: JAYSON PAUL MRN: [id number] date: 1955 Sex: M Assigned Patient Location: CT Current Patient Location: CT Accession/Order Number: [id number] Exam Date: 03/06/2024 08:46 Report Date: 03/06/2024 [...] M.D. Signed By: 03/06/24950 DD/ 7 TD/TT: Activities Coordinator: Procedure Note Radiology, Radiologist, MD - 03/06/2024 [place] [address] CT Scan Report Signed Patient: JAYSON PAULMR#: [id number] : 1955cct:[id number] Age/Sex: 68 / MADM Date: 03/06/24 Loc: CT Attending Dr: Shaikh Kristina Diane Ordering Physician: Shaikh Roxi Acevedo Date of Service: 03/06/24 Procedure(s): CT chest wo con Accession Number(s): [id number] cc: Shaikh Roxi Acevedo [place] [address] Patient Name: JAYSON PAUL MRN: [id number] date: 1955 Sex: M Assigned Patient Location: CT Current Patient Location: CT Accession/Order Number: [id number] Exam Date: 03/06/2024 08:46 Report Date: 03/06/2024 [...] Leach M.D. Signed By:03/06/24950 DD/ 7 TD/TT: Activities Coordinator: us Shaikh Kristina [facility] Final Result documented in this encounter Visit Diagnoses Not on filedocumented in this encounter Care Teams Chief Controller Center Relationship Specialty Start Date End Date Shaikh Acevedo MD [address] [place] [address] PCP - General Internal Medicine 01/25/24 06/30/24 Rachid Henning MD [address] [place] [address] PCP - General Family Medicine 07/23/24 Shaikh Acevedo MD [address] [place] [address] PCP - [employer] 10/27/23 Tammy Hardy NP [address] [place] [address] Nurse Practitioner Family Medicine 07/01/24 documented as of this encounter
--- OUTSIDE RECORDS SUMMARY | 2025-08-25 10:19 | XMS_ITS | Clinical Summary ---
Author Organization [facility] Address [address] [place] [address] Care Team Providers Care Compound Machine Operator Name Role Phone Tammy Hardy NP Unavailable [phone] Rachid Henning MD Primary Care Provider [phone] Shaikh МАРИНА Acevedo Unavailable Allergies Active Allergy Reactions Criticality Noted Date Comments Oxycodone Hives Medium 11/16/2023 Medications albuterol HFA (Ventolin HFA) 90 mcg/act inhalerIndication s:Suspected chronic obstructive pulmonary disease based on initial evaluation Inhale 2 puffs every 4 (four) hours [...] obstructive pulmonary disease based on initial evaluation Take 1 tablet (180 mg) by mouth [...] mouth at bedtime 90 tablet 1 5 Active Active Problems Problem Noted Date Diagnosed Date Type 2 diabetes mellitus with other specified co mplication 05/13/2025 Assessment & Plan (05/13/2025 6:16 AM EDT): HTN, CAD, ED Encounter for subsequent [facility] wellness visit (AWV) in Medicare patient 05/13/2025 [...] that supplies your machine and tubing/filters etc: [facility] Doctor that manages your ZENON: Dr Og [...] and was referred to additional specialisat @ [facility] Neurology- Appointment on 07/30/2024; MRI completed on [...] statin, imdur, demarco/hydrochlorothiazide, b denice, asa Cardiology: [facility] Assessment & Plan (02/10/2025 1:44 PM EDT): Current meds: statin, imdur, demarco/hydrochlorothiazide, b denice, asa Cardiology: [facility] Assessment & Plan (05/23/2024 10:57 AM EDT): Non obs CAD on [facility] in 2014. On ASA, stain, imdur and Toprol Follows [facility] cardiology. Denies CP, SOB, palpitations. Assessment & Plan (01/25/2024 11:02 AM EST): Non obs CAD on [facility] in 2014. On ASA, stain, imdur and Toprol Follows [facility] cardiology. Denies CP, SOB, palpitations. [...] slow position changes Current meds: amlodipine, imdur, demaroc/hydrochlorothiazide, b denice Assessment & Plan (07/23/2024 12:15 [...] sleep study. Will refer to Sleep Clinic. Immunizations Immunization Administration Dates Next Due Influenza, [...] 07/16/2024 How often do you attend chur ch or adventism services? Never 07/16/2024 Do you belong to any clubs o r organizations such as advent groups, unions, fraternal or athletic groups, or [...] Recorded Patient Health Questionnaire-2 Score 0 05/13/2025 [facility] - Occupational [facility] [...] any time in the past 12 m [facility], were you homeless or living in a retirement (including now)? No 07/16/2024 Sex and Gender [...] 05/27/2026 05/27/2024, 07/25/2023, 05/29/2023 Colonoscopy 05/29/2034 05/29/2024, 01/2024, 04/08/2014 Colorectal Cancer Screening 05/29/2034 Goals [...] 05/13/2025 10:22 AM EDT us Lela Solorzano NP POINT OF CARE TEST ENTER/EDIT O RDERABLES [...] 2023 Insurance [employer] MEDICARE ADVANTAGE Care Teams Compound Machine Operator Relationship Specialty Start Date End Date Rachid Henning MD PCP - General Family Medicine 07/23/24 Shaikh Acevedo MD [address] [place] [address] PCP - [employer] 10/27/23 Tammy Hardy NP Nurse Practitioner Family Medicine 07/01/24
--- OUTSIDE RECORDS SUMMARY | 2025-08-25 10:19 | XMS_ITS | Encounter Summary ---
Author Organization [facility] Address [address] [place] [address] Care Team Providers Care Porcelain Finisher Name Role Phone Shaikh МАРИНА Acevedo Primary Care Provider [phone] Tammy Hardy FORENSIC DNA ANALYST Unavailable [phone] Rachid Henning MD Primary Care Provider [phone] Shaikh МАРИНА Acevedo Unavailable [phone] Encounter Details Date Type Department Care Team (Late st Contact Info) Description 05/27/2024 Orders Only [facility] [address] [place] [address] Shaikh Acevedo MD [address] [place] [address] Social History Tobacco Use Types Packs/Day Years [...] documented as of this encounter Care Teams Porcelain Finisher Relationship Specialty Start Date End Date Shaikh Acevedo MD [address] [place] [address] PCP - General Internal Medicine 01/25/24 06/30/24 Rachid Henning MD [address] [place] [address] PCP - General Family Medicine 07/23/24 Shaikh Acevedo MD [address] [place] [address] PCP - [employer] 10/27/23 Tammy Hardy NP [address] [place] [address] Nurse Practitioner Family Medicine 07/01/24 documented as of this encounter
--- OUTSIDE RECORDS SUMMARY | 2025-08-25 10:19 | XMS_ITS | Patient Health Record ---
Author Organization [facility] [place] Address [address] [place] [address] Care Team Providers Care E Commerce Manager Name Role Phone Lela Solorzano CNP Primary Care Provider Unavail able Fracisco Morrison Unavailable [phone] Allergies Allergen (clinical drug ingredient) Drug/Non Drug Allergy documented on EMR Reaction Allergy Type Onset Date Status oxycodone Oxycodone hives Drug Allergy Active Results Component Value Reference Range Notes CT Chest w/o contrast Reviewed date:04/02/2025 10:07:53 AM Interpretation: Performing Lab: Notes/Report: CT chest wo con Reviewed date:04/02/2025 10:44:20 AM Interpretation: Performing Lab: Notes/Report: Source Facility: [place] [address] CT Scan Report Signed Patient: JAYSON PAUL MR#: [id number] : 1955 Acct:[id number] Age/Sex: 69 / M ADM Date: 04/02/25 Loc: CT Attending Dr: Fracisco Morrison D.O. Ordering Physician: Fracisco Morrison D.O. Date of Service: 04/02/25 Procedure(s): CT chest wo con Accession Number(s): [id number] cc: Lela Solorzano NP [place] [address] Patient Name: JAYSON PAUL MRN: [id number] date: 1955 Sex: M Assigned Patient Location: CT Current Patient Location: CT Accession/Order Number: [id number] Exam Date: 04/02/2025 09:52 Report Date: 04/02/2025 [...] Dan Jr.OHumera 04/02/2025 9:55 AM Dictation Location: [place] [address] Electronically authenticated by: [id number] Y Date: 04/02/2025 09:55 Dictated By: John Sneed M.D. Signed By: 04/02/25 0957 DD/ TD/TT: Optical Goods Worker: Reason For Referral No Information Medications Medication SIG (Take, Route, Frequency, Duration) Notes Start Date End Date Status Lisinopril-hydroCHLOROthi azide 20-12.5 MG Oral; Duration: 90 Days Active metFORMIN HCl 850 MG TAKE 1 TABLET BY [facility] DAILY Oral; Duration: 90 Days Active Metoprolol Succinate ER 100 MG Oral; Duration: 90 Days Acti ve Omeprazole 20 MG Oral; Duration: 90 Days Active PARoxetine HCl 40 MG TAKE 1 TABLET BY [facility] DAILY Oral; Duration: 90 Days Active Albuterol [...] Comme nts Flu, Fluzone High-Dose (2022 -2023) (38057) 65 yrs+ Unknown 09/28/2023 Administered SARS-COV-2 (COVID [...] Status Risk Notes Problem Solitary pulmonary nodule (649618028) Solitary pulmonary nodule (R91.1) Active confirmed Problem Morbid obesity (321623908) Morbid obesity (E66.01) Active confirmed Problem Obstructive sleep apnea syndrome (37749470) ZENON (obstructive sleep apnea) (G47.33) Active confirmed Problem Diabetes mellitus type 2 (disorder) (77544088) DM2 (diabetes mellitus, type 2) (E11.9) Active confirmed Problem Ex-tobacco user (finding) (230425349) History of tobacco abuse (Z87.891) Active confirmed Problem Calcified granuloma of lung (116250254543151 00) Calcified granuloma of lung (J84.10) Active confirmed Problem Calcified lymph nodes (205665421) Calcified lymph nodes (I89.8) Active confirmed Vital Signs Heart Rate 77 /min 03/26/2025 Temperature 96.9 degrees Fahrenheit 03/26/2025 Respiratory Rate 18 /min 03/26/2025 Blood pressure diastolic 83 mm Hg 03/26/2025 Oximetry 95 % 03/26/2025 Height 72 in 03/26/2025 Blood pressure systolic 158 mm Hg 03/26/2025 Weight 318.8 lbs 03/26/2025 BMI 43.23 kg/m2 03/26/2025 Encounters Encounter Location Date Provider Diagnosis [facility] [place] [address] [place] [address] 04/02/2025 [facility] [place] [address] [place] [address] 03/26/2025 [facility] Solitary pulmonary nodule R91.1 ; Shortness of breath R06.02 ; Calcified granuloma of lung J84.10 ; Calcified lymph nodes I89.8 ; ZENON (obstructive sleep apnea) G47.33 ; DM2 (diabetes mellitus, type 2) E11.9 ; History of tobacco abuse Z87.891 and Morbid obesity E66.01 Assessments Encounter Date Diagnosis (ICD Code) Assessment [...] Date Coverage End Date [employer] MEDICARE [address] [place] [address] [id number] Jayson Paul Self - patient is the insured Medical (General) History Medical History History ICD Code Solitary pulmonary nodule R91.1 Calcified granuloma of lung J84.10 Calcified lymph nodes I89.8 ZENON (obstructive sleep apnea) G47.33 History of tobacco abuse Z87.891 Dyslipidemia E78.5 DM2 (diabetes mellitus, type 2) E11.9 HTN (hypertension) I10 Morbid obesity E66.01 Surgical History Surgery Date(Month/Year) umbilical hernia repair cardiac catheterization tonsillectomy and adenoidectomy lithotripsy
--- OUTSIDE RECORDS SUMMARY | 2025-08-25 10:19 | XMS_ITS | Encounter Summary ---
Author Organization [facility] Address [address] [place] [address] Care Team Providers Care Renewable Energy Technician Name Role Phone Tammy Hardy NP Unavailable [phone] Rachid Henning MD Primary Care Provider [phone] Shaikh МАРИНА Acevedo Unavailable [phone] Encounter Details Date Type Department Care Team (Late st Contact Info) Description 07/15/2024 Clinisync Result Encounter [facility] External Department Unsolicited Adam Lucero DO [address] [place] [address] Social History Tobacco Use Types Packs/Day [...] How often do you attend chur or bahai services? Never 07/16/2024 Do you belong to any clubs o r organizations such as hinduism groups, unions, fraternal or athletic groups, or [...] Recorded Patient Health Questionnaire-2 Score 0 05/23/2024 [facility] - [facility]ational Stress Questionnaire Answer Date [...] any time in the past 12 m [facility], were you homeless or living in a group home (including now)? No 07/16/2024 Sex and Gender [...] EDT Narrative 07/15/2024 6:37 PM EDT The [address] [address] Magnetic Resonance Report Signed Patient: JAYSON PAUL MR#: [id number] : 1955 Acct:[id number] Age/Sex: 68 / M ADM Date: 07/15/24 Loc: LAB Attending Dr: Adam Lucero D.O. Ordering Physician: Adam Lucero D.O. Date of Service: 07/15/24 Procedure(s): MR head/brain wo/w con Accession Number(s): [id number] cc: Shaikh Roxi Acevedo; Adam Lucero D.O. The [place] [address] Patient Name: JAYSON PAUL MRN: [facility]:[id number] date: 1955 Sex: M Assigned Patient Location: LAB Current Patient Location: LAB Accession/Order Number: [id number] Exam Date: 07/15/2024 09:01 Report Date: 07/15/2024 [...] M.D. Signed By: 07/15/241836 DD/ 34 TD/TT: Parts Back Counter Man: Procedure Note Radiology, Radiologist, - 07/15/2024 [place] [address] Magnetic Resonance Report Signed Patient: JAYSON PAULMR#: [id number] : 1955cct:[id number] Age/Sex: 68 / MADM Date: 07/15/24 Loc: LAB Attending Dr: Adam Lucero D.O. Ordering Physician: Adam Lucero D.O. Date of Service: 07/15/24 Procedure(s): MR head/brain wo/w con Accession Number(s): [id number] cc: Shaikh Roxi Acevedo; Adam Lucero D.O. [place] [address] Patient Name: JAYSON PAUL MRN: [id number] date: 1955 Sex: M Assigned Patient Location: LAB Current Patient Location: LAB Accession/Order Number: [id number] Exam Date: 07/15/2024 09:01 Report Date: 07/15/2024 [...] VASQUEZ M.D. Signed By:07/15/241836 DD/ 34 TD/TT: Parts Back Counter Man: Adam Lucero DO IMG XR PROCEDURES Final R esult documented in this encounter Visit Diagnoses Not on filedocumented in this encounter Additional Health Concerns Assessment Noted Time PHQ-9 Depression Total Score: 3 05/23/20 10:29 AM EDT documented as of this encounter Care Teams Renewable Energy Technician Relationship Specialty Start Date End Date Rachid Henning MD PCP - General Family Medicine 07/23/24 Shaikh Acevedo MD [address] [place] [address] PCP - [employer] 10/27/23 Tammy Hardy NP Nurse Practitioner Family Medicine 07/01/24 documented as of this encounter
--- OUTSIDE RECORDS SUMMARY | 2025-08-25 10:19 | XMS_ITS | Encounter Summary ---
Author Organization [facility] Address [address] [place] [address] Care Team Providers Care Candle Wrapping Machine Operator Name Role Phone Shaikh МАРИНА Acevedo Primary Care Provider [phone] Tammy Hardy NP Unavailable [phone] Rachid Henning MD Primary Care Provider [phone] Shaikh МАРИНА Acevedo Unavailable [phone] Reason for Visit * Reason Comments Med Change Request Encounter Details Date Type Department Care Team (Late st Contact Info) Description 05/23/2024 [facility] [address] [place] [address] Shaikh Acevedo MD [address] [place] [place] [address] Type 2 diabetes mellitus without complication, without [...] documented as of this encounter Care Teams Candle Wrapping Machine Operator Relationship Specialty Start Date End Date Shaikh Acevedo MD [address] [place] [address] PCP - General Internal Medicine 01/25/24 06/30/24 Rachid Henning MD [address] [place] [address] PCP - General Family Medicine 07/23/24 Shaikh Acevedo MD [address] [place] [address] PCP - [employer] 10/27/23 Tammy Hardy NP [address] [place] [address] Nurse Practitioner Family Medicine 07/01/24 documented as of this encounter
--- OUTSIDE RECORDS SUMMARY | 2025-08-25 10:19 | XMS_ITS | Clinical Summary ---
Author Organization [employer] [facility] Address [id number] [address] [place] [address] Care Team Providers Care Air Traffic Control Equipment Repairer Name Role Phone Rachid Henning MD Primary Care Provider [phone] Allergies Active Allergy Reactions Criticality Noted Date [...] complication, without long-term current use of insulin ([facility]) Take 1 tablet (850 mg total) by [...] exists Medical Devices Not on file Insurance [id number] PLAN Care Teams Air Traffic Control Equipment Repairer Relationship Specialty Start Date End Date Rachid Henning MD PCP - General Family Medicine 04/03/23
--- OUTSIDE RECORDS SUMMARY | 2025-08-25 10:19 | XMS_ITS | Encounter Summary ---
Author Organization [facility] Address [address] [place] [address] Care Team Providers Care Beverage Server Name Role Phone Rachid Henning MD Primary Care Provider [phone] Rachid Henning MD Primary Care Provider [phone] Shaikh МАРИНА Acevedo Primary Care Provider [phone] Tammy Hardy MEDICAL LANGUAGE SPECIALIST Unavailable [phone] Rachid Henning MD Primary Care Provider [phone] Shaikh МАРИНА Acevedo Unavailable [phone] Encounter Details Date Type Department Care Team (Late st Contact Info) Description 11/18/2023 Clinisync Result Encounter [facility] External Department Unsolicited Shaikh Acevedo MD [address] [place] [address] Social History Tobacco Use Types Packs/Day Years [...] AM EST Narrative 11/18/2023 1:59 AM EST [address] [address] XRay Report Signed Patient: JAYSON PAUL MR#: [id number] : 1955 Acct:[id number] Age/Sex: 67 / M ADM Date: 11/16/23 Loc: LAB Attending Dr: Shaikh Kristina Diane Ordering Physician: Shaikh Roxi Acevedo Date of Service: 11/16/23 Procedure(s): XR chest 2V Accession Number(s): [id number] cc: Shaikh Roxi Acevedo; Rachid Henning M.D. [address] [address] Patient Name: JAYSON PAUL MRN: [id number] date: 1955 Sex: M Assigned Patient Location: LAB Current Patient Location: LAB Accession/Order Number: [id number] Exam Date: 11/16/2023 10:21 Report Date: 11/18/2023 [...] Signed By: 11/18/23 0159 DD/ 0156 TD/TT: Digital X Ray Service Engineer: Procedure Note Radiology, Radiologist, - 11/18/2023 The [place] [id number] XRay Report Signed Patient: JAYSON PAULMR#: [id number] : 1955cct:[id number] Age/Sex: 67 / MADM Date: 11/16/23 Loc: LAB Attending Dr: Shaikh Kristina Diane Ordering Physician: Shaikh Roxi Acevedo Date of Service: 11/16/23 Procedure(s): XR chest 2V Accession Number(s): [id number] cc: Shaikh Roxi Acevedo; Rachid Henning M.D. The [place] [id number] Patient Name: JAYSON PAUL MRN: [id number] date: 1955 Sex: M Assigned Patient Location: LAB Current Patient Location: LAB Accession/Order Number: [id number] Exam Date: 11/16/2023 10:21 Report Date: 11/18/2023 [...] M.D. Signed By:11/18/23 0159 DD/ 0156 TD/TT: Digital X Ray Service Engineer: Shaikh Kristina [facility] Final Result documented in this encounter Visit Diagnoses Not on filedocumented in this encounter Care Teams Beverage Server Relationship Specialty Start Date End Date Rachid Henning MD PCP - General Family Medicine 06/08/23 01/11/24 Rachid Henning MD PCP - General Family Medicine 01/12/24 01/24/24 Shaikh Acevedo MD [address] [place] [address] PCP - General Internal Medicine 01/25/24 06/30/24 Rachid Henning MD PCP - General Family Medicine 07/23/24 Shaikh Acevedo MD [address] [place] [phone] PCP - [employer] 10/27/23 Tammy Hrady NP [address] [place] [address] Nurse Practitioner Family Medicine 07/01/24 documented as of this encounter
--- OUTSIDE RECORDS SUMMARY | 2025-08-25 10:19 | XMS_ITS | Encounter Summary ---
Author Organization [facility] Address [address] [place] [address] Care Team Providers Care Pet House Sitter Name Role Phone Shaikh МАРИНА Acevedo Primary Care Provider [phone] Tammy Hardy LENS EXAMINER Unavailable [phone] Rachid Henning MD Primary Care Provider [phone] Shaikh МАРИНА Acevedo Unavailable [phone] Encounter Details Date Type Department Care Team (Late st Contact Info) Description 04/17/2024 Abstract [facility] [address] [place] [address] Shaikh Acevedo MD [address] [place] [address] Social History Tobacco Use Types Packs/Day Years [...] on filedocumented in this encounter Care Teams Pet House Sitter Relationship Specialty Start Date End Date Shaikh Acevedo MD [address] [place] [address] PCP - General Internal Medicine 01/25/24 06/30/24 Rachid Henning MD [address] [place] [address] PCP - General Family Medicine 07/23/24 Shaikh Acevedo MD [address] [place] [address] PCP - [employer] 10/27/23 Tammy Hardy NP [address] [place] [address] Nurse Practitioner Family Medicine 07/01/24 documented as of this encounter
--- NOTE | 2025-08-25 10:20 | XR_ITS ---
The [address] [address] Patient Name: FUNMI JULIO MRN: [id number] date: 1955 Sex: M Assigned Patient Location: LAB Current Patient Location: LAB Accession/Order Number: [id number] Exam Date: 08/25/2025 10:30 Report Date: 08/25/2025 10:58 At the request of: PAWEL SORIA NP Procedure: XR hip BI w PEL 1V ADULT PELVIS WITH BILATERAL HIPS - 5 views CLINICAL HISTORY: Chronic low back and hip pain. No reported injury. COMPARISON: None AP view of the pelvis as well as AP and frog-lateral views of both hips were obtained. No fracture, dislocation or bony destruction is seen. The hip joint spaces are symmetric. There is minimal marginal spurring. The soft tissues are unremarkable. XR/XR hip BI w PEL 1V IMPRESSION: NO ACUTE PLAIN FILM FINDINGS. Impression dictated by: Michelle Dutta M.D. 08/25/2025 10:58 AM Dictation Location: [place] [address] Electronically authenticated by: [id number] Y Date: 08/25/2025 10:58
--- OUTSIDE RECORDS SUMMARY | 2025-08-25 10:20 | XMS_ITS | Encounter Summary ---
Author Organization [facility] Address [address] [place] [address] Care Team Providers Care Trailer Chief Name Role Phone Shaikh МАРИНА Acevedo Primary Care Provider [phone] Tammy Hardy PANEL BUILDER Unavailable [phone] Rachid Henning MD Primary Care Provider [phone] Shaikh МАРИНА Acevedo Unavailable [phone] Encounter Details Date Type Department Care Team (Late st Contact Info) Description 02/21/2024 [facility] [address] [place] [address] Shaikh Acevedo MD [address] [place] [address] Social History Tobacco Use Types Packs/Day Years [...] on filedocumented in this encounter Care Teams Trailer Chief Relationship Specialty Start Date End Date Shaikh Acevedo MD [address] [place] [phone] PCP - General Internal Medicine 01/25/24 06/30/24 Rachid Henning MD [address] [place] [address] PCP - General Family Medicine 07/23/24 Shaikh Acevedo MD [address] [place] [address] PCP - [employer] 10/27/23 Tammy Hardy NP [address] [place] [address] Nurse Practitioner Family Medicine 07/01/24 documented as of this encounter
--- OUTSIDE RECORDS SUMMARY | 2025-08-25 10:20 | XMS_ITS | Encounter Summary ---
Author Organization [facility] Address [address] [place] [place] [address] Care Team Providers Care Promotions Executive Producer Name Role Phone Rachid Henning MD Primary Care Provider [phone] Rachid Henning MD Primary Care Provider [phone] Shaikh МАРИНА Acevedo Primary Care Provider [phone] Tammy Hardy OIL WINTERIZER Unavailable [phone] Rachid Henning MD Primary Care Provider [phone] Shaikh МАРИНА Acevedo Unavailable [phone] Encounter Details Date Type Department Care Team (Late st Contact Info) Description 01/11/2024 Clinisync Result Encounter [facility] External Department Unsolicited Shaikh Acevedo MD [address] [place] [address] Social History Tobacco Use Types Packs/Day Years [...] AM EST Narrative 01/11/2024 11:56 AM EST [address] [address] XRay Report Signed Patient: JAYSON PAUL MR#: [id number] : 1955 Acct:[id number] Age/Sex: 68 / M ADM Date: 01/11/24 Loc: RAD Attending Dr: Shaikh Kristina Diane Ordering Physician: Shaikh Roxi Acevedo Date of Service: 01/11/24 Procedure(s): XR chest 2V Accession Number(s): [id number] cc: Shaikh Roxi Acevedo; Rachid Henning M.D. [place] [address] Patient Name: JAYSON PAUL MRN: [id number] date: 1955 Sex: M Assigned Patient Location: [facility] Current Patient Location: [facility] Accession/Order Number: [id number] Exam Date: 01/11/2024 11:38 Report Date: 01/11/2024 [...] Signed By: 01/11/24 1156 DD/ 1153 TD/TT: Park Worker Supervisor: Procedure Note Radiology, Radiologist, - 01/31/2024 The [place] [id number] XRay Report Signed Patient: JAYSON PAULMR#: [id number] : 1955cct:[id number] Age/Sex: 68 / MADM Date: 01/11/24 Loc: RAD Attending Dr: Shaikh Kristina Diane Ordering Physician: Shaikh Roxi Acevedo Date of Service: 01/11/24 Procedure(s): XR chest 2V Accession Number(s): [id number] cc: Shaikh Roxi Acevedo; Rachid Henning M.D. The [address] [address] Patient Name: JAYSON PAUL MRN: [id number] date: 1955 Sex: M Assigned Patient Location: [facility] Current Patient Location: [facility] Accession/Order Number: [id number] Exam Date: 01/11/2024 11:38 Report Date: 01/11/2024 [...] M.D. Signed By:01/11/24 1156 DD/ 52 TD/TT: Park Worker Supervisor: us Shaikh Kristina [facility] Final Result documented in this encounter Visit Diagnoses Not on filedocumented in this encounter Care Teams Promotions Executive Producer Relationship Specialty Start Date End Date Rachid Henning MD PCP - General Family Medicine 06/08/23 01/11/24 Rachid Henning MD PCP - General Family Medicine 01/12/24 01/24/24 Shaikh Acevedo MD [address] [place] [address] PCP - General Internal Medicine 01/25/24 06/30/24 Rachid Henning MD PCP - General Family Medicine 07/23/24 Shaikh Acevedo MD [address] [place] [address] PCP - [employer] 10/27/23 Tammy Hardy NP [address] [place] [address] Nurse Practitioner Family Medicine 07/01/24 documented as of this encounter
== END 2025-08-25 10:16 | disposition home or self-care (01) ==
LOC: LAB 10:16
PROVIDERS: PCP Nurse Practitioner; Visit Provider Nurse Practitioner
DX: M54.50 Low back pain, unspecified (principal); G89.29 Other chronic pain
CPT/HCPCS: 73523

== ENCOUNTER 2025-10-03 09:52 | Outpatient (OUT) | payer MEDICARE, SELFPAY ==
--- OUTSIDE RECORDS SUMMARY | 2025-09-25 04:41 | XMS_ITS | Continuity of Care Document ---
Author Organization [facility] Address [address] [place] [address] Phone Care Team Providers Care Tactical Intelligence Officer Name Role Phone Leal Solorzano JIG GRINDER-C Primary Care Provider [phone] Lela Solorzano JIG GRINDER-C Attending Provider Adam Lucero DO Attending Provider Care Teams Patient Care Team Team Status: Active Member Role/Relationship Status Dates Lela Solorzano JIG GRINDER-C Primary Care Provider Active Visit Care Team Team Status: Inactive Member Role/Relationship Status Dates Lela Solorzano JIG GRINDER-C Primary Care Provider Active Start: August 13, 2025 End: August 13, 2025Lela Solorzano NP-CAttending ProviderActiveStart: August 13, 2025 End: August 13, 2025 Visit Care Team Team Status: Inactive Member Role/Relationship Status Dates Adam Lucero DO Attending Provider Active Start: September 03, 2025 End: September 03, 2025Lela Solorzano NP-CPrimary Care ProviderActiveStart: September 03, 2025 End: September 03, 2025 Patient Care Team Team Status: Inactive Member Role/Relationship Status Dates Lela Solorzano JIG GRINDER-C Primary Care Provider Active Start: September 25, 2025 End: September 25, 2025Lela Solorzano JIG GRINDER-CAttending ProviderActiveStart: September 25, 2025 End: September 25, 2025 Chief Complaint and Reason for Visit Chief Complaint Admit Date Established Patient August 13, 2025 9:29am 1 year F.U *with ch* September 03, 2025 9 :13am 6W September 25, 2025 8 :56am Reason for Visit Admit Date CAD in algaaciq artery August 13 9:29am Chronic lower back pain August 13, 2025 9:29am Essential hypertension August 13, 2 025 9:29am GERD without esophagitis August 13, 2025 9:29am Morbid obesity due to excess calories Se ptember 2024 9:29am ZENON (obstructive sleep apnea) August 13, 2025 9:29am Type 2 diabetes mellitus wit hout complication, without long-term current us August 13, 2025 9:29am Cognitive impairment September 03, 2025 9 :13am CAD in algaaciq artery September 25, 2025 8:56am Chronic lower back pain September 25 8:56am Essential hypertension September 25 8:56am Morbid obesity due to excess calories Oc tober 2024 8:56am ZENON (obstructive sleep apnea) September 252024 8:56am Type 2 diabetes mellitus wit hout complication, without long-term current us September 25, 2025 8:56am Reason for Referral Type Reason(s) Provider Provider Contact Information P [facility] Address Start Date Chronic low back pain M54.50 - Low back pain, unspecified,G89.29 - Other chronic painM54.50 - Low back pain, unspecified,G89.29 - Other chronic painBellevue Hosp RehabilitationWork Phone: [phone] [facility] [address]Ifmnneqlp 2024 Allergies, Adverse Reactions, Alerts Allergen Type Severity Reaction Last Updated Verified Status oxycodone Allergy Unknown hives September 03, 2025 9:20am Yes Active Social History Smoking Status Unknown if ever smoked Observation Status Observation Response Date of Response Legal Sex Male (finding) Sex Assigned At BirthMaleJanuary 1955 Family History Relationship Condition Age at Onset Recorded Date/T annemarie father Unknown motherDeceasedUnknownDiabetes mellitusUnknownHeart diseaseUnknownHistory of strokeUnknown Problems Active Problems Problem Diagnosis/Recorded Date Onset Date Stat us Encounter for subsequent [facility] wellness visit (AWV) in Medicare patient August 10, 2025 7:45pm Unknown Active Major depression, recurrent August 10, 2025 7:45p m Unknown Active ZENON (obstructive sleep apnea) August 10, 2025 7:4 6pm Unknown Active Calcified granuloma of lung August 10, 2025 7:43p m Unknown Active Prostate cancer screening August 10, 2025 7:47pm Unknown Active CAD in algaaciq artery August 10, 2025 7:44pm Unkno wn Active Chronic lower back pain August 13, 2025 10:11am U nknown Active Pulmonary fibrosis, unspecified August 10, 2025 7 :47pm Unknown Active Erectile dysfunction August 10, 2025 7:44pm Unkno wn Active Acquired buried penis August 10, 2025 7:43pm Unkn own Active Former tobacco use August 10, 2025 7:45pm Unknown Active Umbilical hernia August 10, 2025 7:48pm Unknown Active Mixed hyperlipidemia August 10, 2025 7:45pm Unkno wn Active Mild cognitive impairment August 10, 2025 7:46pm Unknown Active Hypogonadism in male August 10, 2025 7:45pm Unkno wn Active Essential hypertension August 10, 2025 7:43pm Unk nown Active Morbid obesity due to excess calories August 10, 2025 7:46pm Unknown Active Type 2 diabetes mellitus wit hout complication, without long-term current use of insulin August 10, 2025 7:48pm Unknown Active GERD without esophagitis August 10, 2025 7:44pm U nknown Active History of tonsillectomy August 10, 2025 7:43pm U nknown Active Calcified lymph nodes August 10, 2025 7:44pm Unkn own Active COPD (chronic obstructive pu lmonary disease) August 10, 2025 7:47pm Unknown Active Cognitive impairment September 03, 2025 9:23am Unknown Active Medications Medication Status Dose Units Route Directions Qty Days Refills S tart Date Stop Date End Date Reason(s) Instructions Adherence Lisinopril-Hydrochlorothiazide 20-12.5 mg tablet Active 1 TAB PO Daily 90 1Sept2024 9:11pmPrimary hypertension Essential (primary) hypertensionUnknownMetformin 850 mg enygmoSpwibp425JKBIHwvjf cvaep8327Coryvxfqa 2024 9:11pmType 2 diabetes mellitus without complicationsUnknownAmlodipine 10 mg adhuajCbulio41WBVBGtcvl452Mylqfnnii 2024 9:12pmPrimary hypertension Essential (primary) hypertensionUnknownAtorvastatin 40 mg iwknvuGhniox99KRXQ DailyJuly 2024 12:00amUnknownAnastrozole 1 mg budyyiDyylsjvajmyq5ETIWLnpcz June 25, 2025 12:00amSept2024 10:00amLisinopril- Hydrochlorothiazide 20-12.5 mg rtbceaHpipvpwkrmzo0ERCCWXqfqlYigq 2024 12:00amSept2024 9:13pmMetoprolol Succinate 100 mg tablet extended release 24 hrActiveMGPOJuly 2024 12:00amUnknownMetformin 850 mg tablet Bbubwpfldhtv848LVWWIzwtaHjwl 2024 12:00amSept2024 7:48pm Fexofenadine 180 mg vhukiyHnacmm588CHDKKujgzNdvy 2024 12:00amUnknown Spironolactone 25 mg qbjrxfMwcjwbduuqel88KLNRTgbbhNmaw 30th, 2025 12:00am August 10, 2025 7:49pmIsosorbide Mononitrate 60 mg tablet extended release 24 hrActiveMGPOly 2024 12:00amUnknownAmlodipine 10 mg tabletDiscontinued 10MGPODailyJune 25, 2025 12:00amSept2024 9:13pmOmeprazole 20 mg capsule,delayed release(DR/EC)Tbvvdn09VDXFSgdnlCimc 30th, 2025 12:00amUnknown Aspirin 81 mg imlgobRsopjj64QCCMFkmolSbez 2024 12:00amUnknownAlbuterol Sulfate 90 mcg/actuation HFA aerosol chmewmcGyirrw9TTZBUOCKHIWKAOjcgh 6 hours June 25, 2025 12:00amUnknownParoxetine Hcl 40 mg dmsmmhWifvsl10AIZIFwnhCkuc 2024 12:00amUnknownSemaglutide (Ozempic) 1 mg/dose (4 mg/3 mL) pen hsceblwxCimjeeycqcnm2TALTWVEMlmrqt weekJune 25, 2025 12:00amSeptember 2024 10:01amCpap (Continuous Positive Airway Pressure) unitActive0.Nvdzu56Yxbi 2024 12:00amNew mask and supplies x 1 year, Dx ZENON Patient would like the ramp turned offMetformin 850 mg cyocozNyicbzjkmmdl945YDSTTbtbb dailySeptember 2024 12:00amSept2024 9:13pmSpironolactone 25 mg tabletActive 12.5MGPODailySeptember 2024 12:00amUnknown Relevant Diagnostic Tests and/or Laboratory Data Laboratory Results Test Collection Date/Time Result Date/Time Result Interpretation Reference Range Result Comment Performing Site Bedside Hemoglobin A1c August 13, 2025 6:12am Sep tember 2024 9:56am 6.9 % Vital Signs Vital Reading Result Reference Range Collection Date/Time Height 72 [in_i] August 13, 2025 9:07dqPyqyhg861.11 kgSept2024 9:45amBody Qwwahosiuug99.5 [degF]97.6-99.0Sept2024 9:45amHeart Rate83 /min 60-100pt2024 9:45amRespiratory rate24 /yvv12-01Uvcpscqmm 17th, 2025 9:45amOxygen saturation by Pulse azdvcibq41 %95-100pt2024 9:45amBP Wwnbloxg636 mm[Hg]100-140Sept2024 9:45amBP Xwtugosej54 mm[Hg]60-100Sept2024 9:45amBMI (Body Mass Index)43.7 kg/s2Kxbrjihct2024 9:07fcVltvuz968.77 kgOctober 2024 9:20amHeart Rate83 /zqz87-231 September 03, 2025 9:20amOxygen saturation by Pulse %95-100October 2024 9:20amBP Izuxtzwg841 mm[Hg]100-140October 2024 9:20amBP Diastolic 106 mm[Hg]60-100October 2024 9:43szAfnzmt22 [in_i]September 25, 2025 9:04am Oiebpg910.73 kgOctuofl [facility] 2024 9:04amBody Etokrvgqfxo27.8 [degF]97.6-99.0 September 25, 2025 9:04amHeart Rate94 /bnp78-661Aikuqmg 2024 9:04am Respiratory rate20 /xdq57-86Trsrkwj 2024 9:04amOxygen saturation by Pulse cksgewns62 %95-100Oct2024 9:04amBP Expvejvh833 mm[Hg]100-140Octuofl [facility] 2024 9:04amBP Jtjusozsd10 mm[Hg]60-100Octuofl [facility] 2024 9:04amBMI (Body Mass Index)43.9 kg/s9Nuimpql 2024 9:04am Advance Directives Advance Directive Response Recorded Date/ Time Advance Directives No June 25 1:16pm Insurance Providers Guarantor Jayson Burnett [facility] Address [address] [facility] [address]Jcxhdil Info.Home Phone: Coverage Status Update:2025 Payer Group Member ID Coverage Type Subscriber Relationship to Subscriber Effective Date Expiration Date [employer] [facility] PFFS [id number] A [facility] Id: [id number] [id number] [facility] [address] Home Phone: Self Encounters Encounter Location(s) Arrival/Admit Date Discharge/Departure Date Discharge/Departure Disposition Provider(s) Departed Physician/ Provider Office Visit -[facility] Family Medicine [place] August 13, 2025 9:29am August 13, 2025 10:15am Discharged to home care or self care (routine discharge) JULEE Sanders Departed Physician/ Provider Office Visit -[facility] Neurology [place] September 03, 2025 9:13am September 03, 2025 9:35am Discharged to home care or self care (routine discharge) Adonay Tidwell DO Departed Physician/ Provider Office Visit -[facility] Family Medicine [place] September 25, 2025 8:56am September 25, 2025 9:39am Discharged to home care or self care (routine discharge) Lela Solorzano NP-C Recent Diagnosis Onset Date Admit Date CAD in algaaciq artery Unknown July 282024 9:29am Chronic lower [...] us Unknown August 13, 2025 9:29 am Cognitive impairment Unknown August 9:13am CAD in algaaciq artery Unknown August 8:56am Chronic lower back pain Unknown September 25, 2025 8:56am Essential hypertension Unknown August 292024 8:56am Morbid obesity due to excess calories Unknown September 25, 2025 8:56am ZENON (obstructive sleep apnea) Unknown tober 2024 8:56am Type 2 diabetes mellitus wit hout complication, without long-term current us Unknown September 25, 2025 8:56am Assessments Diagnosis Onset Date Resolution Status Admit Date CAD in algaaciq artery acuteSeptember 2024 9:29amChronic lower back painacuteSeptember 2024 9:29amEssential hypertensionacuteSeptember 2024 9:29amGERD without esophagitisacuteSeptember 2024 9:29amMorbid obesity due to excess calories acuteSeptember 2024 9:29amOSA (obstructive sleep apnea)acuteSeptember 2024 9:29amType 2 diabetes mellitus without complication, without long- term current usacuteSeptember 2024 9:29amCognitive impairmentacuteOctober 2024 9:13amCAD in algaaciq arteryacuteOctober 2024 8:56amChronic lower back painacuteOctober 2024 8:56amEssential hypertensionacuteOctober 2024 8:56amMorbid obesity due to excess caloriesacuteOctober 2024 8:56am ZENON (obstructive sleep apnea)acuteOctober 2024 8:56amType 2 diabetes mellitus without complication, without long-term current usacuteOctober 2024 8:56am Plan of Treatment Author Adam Lucero [facility] Hospital[facility]oredOctober 2024 9:34amIt is my impression that the patient has subjective complaints of memory loss. A factor that may be influencing this is the patient's right more recent history of relatively lower oxygenation status. He has seen pulmonology for this. [place] cognitive assessment was in 2023. MRI of the brain does show some chronic microvascular ischemic disease but otherwise is unremarkable for acute pathology. B12 and thyroid stimulating hormone normal. Neuropsych testing demonstrates preserved cognition for patient's age. Patient does not appear to have any neurodegenerative process at this time. We did evaluate him a year later today and his examination looks good and symptoms appear to overall be stable. Plan: Monitor clinically Consider repeat neuropsych testing next year if the patient feels change ? Pt has been fully educated on their diagnosis, lab results, treatment options, follow up plan, and return instructions Author Lela Solorzano [facility] HospitalAuthoredSeptember 2024 10:14amCheck blood sugars daily, notify the office if <70 or > 200. [...] xray and PT fu in 6 weeks Author Lela Solorzano [facility] HospitalAuthoredOctober 2024 9[facility] daily, notify the office if <70 or > 200. [...] meds: imdur, amlodipine, demarco/HCTZ, b denice, aldactone current meds: asa, imdur, b denice, statin aggressive risk factor control .You have a diagnosis of ZENON it [...] tubing/filters etc:[facility] Doctor that manages your ZENON:april Discussed with patient their BMI (actual vs recommended). We have discussed lifestyle modifications: attempts to perform phsyical activity as chronic conditions allow, monitor dietary intake: increasing protein/fruits/veggies and lowering carb intake (unless contraindicated). Limit sodas, juices, sugary drinks, as well as alcohol consumption. 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
--- OUTSIDE RECORDS SUMMARY | 2025-10-03 09:56 | XMS_ITS | Encounter Summary ---
Author Organization [facility] Address [address] [place] [address] Care Team Providers Care Children'S Minister Name Role Phone Tammy Hardy NP Unavailable [phone] Rachid Henning MD Primary Care Provider [phone] Shaikh МАРИНА Acevedo Unavailable [phone] Encounter Details DateTypeDepartmentCare Team (Latest Contact Info)Pcmfchcnfax24/19/2024Clinisync Result Encounter [facility] Unsolicited Tania Lucero DO [address] [place], [place] [id number] Social History Tobacco UseTypesPacks/DayYears UsedDateSmoking Tobacco: FormerCigarettes0.52 Passive Smoke Exposure: PastSmokeless Tobacco: CurrentChewAlcohol UseStandard Drinks/WeekCommentsNever0 (1 standard drink = 0.6 oz pure alcohol)B1300 Health LiteracyAnswerDate RecordedHow often do you need to have someone help you when you read instructions, pamphlets, or other written material from your doctor or pharmacy?Never07/16/2024Social Connection and Isolation PanelAnswerDate Recorded In a typical week, how many times do you talk on the phone with family, friends, or neighbors?More than three times a week07/16/2024How often do you get together with friends or relatives?Twice a week07/16/2024How often do you attend methodist or roman catholic services?Never07/16/2024o you belong to any clubs or organizations such as methodist groups, unions, fraternal or athletic groups, or school groups?No 08/20/2024How often do you attend meetings of the clubs or organizations you belong to?Never07/16/2024re you , , , , never , or living with a partner?Xjeytgx1507/16/2024UDIT-CAnswerDate RecordedQ1: How often do you have a drink containing alcohol?4 or more times a week 07/16/2024Q2: How many drinks containing alcohol do you have on a typical day when you are drinking?3 or Q3: How often do you have six or more drinks on one occasion?Xzdfxo3707/16/2024Overall Financial Resource Strain (CARDIA)AnswerDate RecordedHow hard is it for you to pay for the very basics like food, housing, medical care, and heating?Not very hard07/16/2024HQ-2Answer Date RecordedPatient Health Questionnaire-2 Zugxv844Finbeaver valley hospital [facility] Occupational Health - Occupational Stress QuestionnaireAnswerDate RecordedDo you feel stress - tense, restless, nervous, or anxious, or unable to sleep at night because yourmind is troubled all the time - these days?Only a xshutg4507/16/2024 Exercise Vital SignAnswerDate RecordedOn average, how many days per week do you engage in moderate to strenuous exercise (like a brisk walk)?3 days07/16/2024On average, how many minutes do you engage in exercise at this level?20 min 07/16/2024Hunger Vital SignAnswerDate RecordedWithin the past 12 months, you worried that your food would run out before you got the money to buymore.Never true07/16/2024Within the past 12 months, the food you bought just didn't last and you didn't have money to get more.Never true07/16/2024RAPARE - TransportationAnswerDate RecordedIn the past 12 months, has lack of transportation kept you from medical appointments or from getting medications?No 07/16/2024In the past 12 months, has lack of transportation kept you from meetings, work, or from getting things needed for daily living?No07/16/2024 Housing Stability Vital SignAnswerDate RecordedIn the last 12 months, was there a time when you were not able to pay the mortgage or rent on time?No07/16/2024 Number of Times Moved in the Last YearNot on file07/16/2024t any time in the past 12 months, were you homeless or living in a fpc (including now)?No 07/16/2024Sex and Gender InformationValueDate RecordedSex Assigned at BirthNot on fileLegal LdmMzwy1702/08/2023 7:19 PM EDTGender IdentityNot on fileSexual OrientationNot on filedocumented as of this encounter Functional Status * AUDIT-C ScoreAnswerDate of DpkqzcssshVywvau191 5:31 PM EDSasha Generic * Q1: How often do you have a drink containing alcohol?AnswerDate of Assessment Author4 or more times a week07/16/2024 5:31 PM Kathryn Generic * Q2: How many drinks containing alcohol do you have on a typical day when you are drinking?AnswerDate of AssessmentAuthor3 or 408 5:31 PM EDT Kristina, Generic * Q3: How often do you have six or more drinks on one occasion?AnswerDate of KfaunxuycpIswmjeMmcfno46/20/2024 5:31 PM Kathryn Generic * Over the past 2 weeks, how often have you been bothered by any of the following problems?QuestionAnswerDate of AssessmentAuthorLittle interest or pleasure in doing thingsNot at all05/13/2025 10:00 AM Yesika Marroquin MAFeeling down, depressed, or hopelessNot at all05/13/2025 10:00 AM Yesika Flynn MAPatient Health Questionnaire-2 Vdrin076 10:00 AM Yesika Marroquin MA * QuestionAnswerDate of AssessmentAuthorTrouble falling or staying asleep, or sleeping too muchNot at all05/13/2025 10:00 AM Yesika Marroquin MA Feeling tired or having little energyNot at all05/13/2025 10:00 AM Yesika Flynn MAPoor appetite or overeatingSeveral days05/13/2025 10:00 AM Yesika Marroquin MAFeeling bad about yourself - or that you are a failure or have let yourself or your family downNot at all05/13/2025 10:00 AM Yesika Marroquin MATrouble concentrating on things, such as reading the newspaper or watching televisionNot at all05/13/2025 10:00 AM Yesika Marroquin, MAMoving or speaking so slowly that other people could have noticed? Or the opposite - being so fidgety or restless that you have been moving around a lot more than usual.Not at all05/13/2025 10:00 AM Yesika Marroquin MAThoughts that you would be better off or hurting yourself in some wayNot at all05/13/2025 10:00 AM Yesika Marroquin [facility]ENTERatient Health Questionnaire-9 Cqcje360 10:00 AM Yesika Marroquin MA documented as of this encounter Plan of Treatment Not on file documented as of this encounter Procedures Procedure NamePriorityDate/TimeAssociated DiagnosisCommentsMRI HEAD/BRAIN WO/W CONTR07/15/2024 6:35 PM EDT documented in this encounter Results * MRI HEAD/BRAIN WO/W CONTR (07/15/2024 6:35 PM EDT)Anatomical RegionLaterality ModalityRadiographic ImagingSpecimen (Source)Anatomical Location / Laterality Collection Method / VolumeCollection TimeReceived Time07/15/2024 6:35 PM EDT Narrative 07/15/2024 6:37 PM EDT [facility] ?[address] ? [place] [address] ? Magnetic Resonance Report ? Signed ? Patient: FUNMI PAUL ? MR#: [id number] ?? : 1955 ?Acct:[id number] ?? Age/Sex: 68 / M ?ADM Date: 07/15/24 ?? Loc: LAB ? Attending Dr: Tania Lucero D.O. ? Ordering Physician: Tania Lucero D.O. ?? Date of Service: 07/15/24 ?? Procedure(s): MR head/brain wo/w con ?? Accession Number(s): [id number] ? cc: Shaikh Roxi Acevedo; Tania Lucero D.O. ? [facility] ? [address] ? [place] [address] ? Patient Name: ?? FUNMI ??NORI ? MRN: [facility]:[id number] ? date: 1955 ?Sex: M ?? Assigned Patient Location: LAB ?? Current Patient Location: LAB ?? Accession/Order Number: [id number] ?? Exam Date: 07/15/2024 ??09:01 ?Report Date: 07/15/2024 ??18:35 ? At the request of: ?? TANIA ??JAZMINE ? Procedure: ??MR head/brain wo/w con ? EXAM: MR head/brain wo/w con ? HISTORY: Mild Cognitive Impairment ? COMPARISON: None. ? TECHNIQUE: Multisequence MRI brain was performed with and without intravenous ?? contrast. ? FINDINGS: ? There is no restricted diffusion to suggest acute infarct. There is no midline ? shift, mass effect, or abnormal extraaxial fluid collections. ? There are no abnormal parenchymal or leptomeningeal enhancement. The cortical ?? sulci and ventricular system are within normal limits. ? There are a few nonspecific scattered foci of T2/FLAIR signal abnormality in ?? the supratentorial white matter, likely reflect chronic microvascular ischemic ? changes. ? The major intracranial flow voids are visualized. The cerebellar tonsils are ?? normal in position. ? The orbits demonstrate no suspicious enhancement or any focal lesions. The ?? paranasal sinuses show no air-fluid level. The mastoid air cells are clear. ?? The ?? calvarium and extracranial soft tissues are unremarkable. ? MR/MR head/brain wo/w con ?? IMPRESSION: ? No acute intracranial abnormality or abnormal intracranial enhancement. ? Mild chronic microvascular ischemic changes. ? Electronically authenticated by: GERARDO ??UNLU ?? Date: 07/15/2024 ??18:35 ? Dictated By: ?UNLU,GERARDO M.D. ? Signed By: ?07/15/24 1837 ? DD/ 1835 ? TD/TT: ? Frame Pulley Mortising Machine Operator: Procedure Note Radiology, Radiologist, MD - 07/15/2024 [place] [address] Magnetic Resonance Report Signed Patient: FUNMI PAULMR#: [id number] : 1955cct:[id number] Age/Sex: 68 / MADM Date: 07/15/24 Loc: LAB Attending Dr: Tania Lucero D.O. Ordering Physician: Tania Lucero D.O. Date of Service: 07/15/24 Procedure(s): MR head/brain wo/w con Accession Number(s): [id number] cc: Shaikh Roxi Acevedo; Tania Lucero D.O. The [place] [id number] Patient Name: FUNMI PAUL MRN: [id number] date: 1955 Sex: M Assigned Patient Location: LAB Current Patient Location: LAB Accession/Order Number: [id number] Exam Date: 07/15/2024 09:01 Report Date: 07/15/2024 18:35 At the request of: TAINA LUCERO Procedure: MR head/brain wo/w con EXAM: [...] VASQUEZ M.D. Signed By:07/15/241836 DD/ 34 TD/TT: Frame Pulley Mortising Machine Operator: Authorizing ProviderResult TypeResult StatusChristopher Jazmine DOIMG XR PROCEDURESFinal Result documented in this encounter Visit Diagnoses Not on filedocumented in this encounter Additional Health Concerns AssessmentNoted TimePHQ-9 Depression Total Score: 306 10:29 AM EDT documented as of this encounter Care Teams Team MemberRelationshipSpecialtyStart DateEnd Date Rachid Henning MD PCP - GeneralFamily Medicine07/23/24 Shaikh Acevedo MD [address] [place] [address] PCP - [employer]10/27/23 Tammy Hardy NP Nurse PractitionerFamily Medicine07/01/24documented as of this encounter
--- OUTSIDE RECORDS SUMMARY | 2025-10-03 09:56 | XMS_ITS | Clinical Summary ---
Author Organization [facility] Address [address] [place] [address] Care Team Providers Care Re Etcher Name Role Phone Rachid Henning MD Primary Care Provider [phone] Allergies Active AllergyReactionsCriticalityNoted BehwSevgqtgnRupxptmyn78/24/2022 Medications MedicationSigDispense QuantityRefillsLast FilledStart DateEnd DateStatus amLODIPine (Norvasc) 10 mg tablet Take 1 tablet by mouth in the morning.Active aspirin 81 mg chewable tablet Chew 81 mg in the morning.Active atorvastatin (Lipitor) 40 mg tablet Take 40 mg by mouth in the morning.Active lisinopriL-hydrochlorothiazide 20-12.5 mg tablet Take 1 tablet by mouth in the morning and at bedtime.Active metFORMIN (Glucophage) 850 mg tablet Take 1 tablet by mouth with breakfast and with evening meal.Active omeprazole (PriLOSEC) [address] capsule Take 1 capsule by mouth in the morning.Active PARoxetine (Paxil) 40 mg tablet Take 1 tablet by mouth in the morning.Active fexofenadine (Lamar) 180 mg tablet Take 1 tablet by mouth in the morning.Active isosorbide mononitrate ER (Imdur) 60 mg 24 hr tablet Indications:Coronary artery disease involving [place] coronary artery of [place] heart without angina pectorisTake 1 tablet (60 mg) by mouth in the morning. 90 tablet ctive albuterol 90 mcg/actuation inhaler Inhale 2 puffs every 4 (four) hours if needed.11/07/2024ctive anastrozole (Arimidex) 1 mg chemo tablet Take 1 mg by mouth 1 (one) time per weekActive Ozempic 1 mg/dose (4 mg/3 mL) pen injector Inject 1 mg under the skin in the morning.11/07/2024ctive testosterone undecanoate (Jatenzo) 237 mg capsule Take 237 mg by mouth.12/18/2024tive spironolactone (Aldactone) 25 mg tablet Indications:Primary hypertension,Edema of lower extremityTake 0.5 tablets (12.5 mg) by mouth in the morning. 45 tablet /6Active metoprolol succinate XL (Toprol-XL) 100 mg 24 hr tablet Indications:Benign hypertension without congestive heart failureTake 1 tablet (100 mg) by mouth in the morning. Do not crush or chew. 90 tablet ctive Active Problems ProblemNoted DateDiagnosed DateChest pain03/11/2025Low pylupw7503/11/2025Umbilical utiwjb1303/11/2025alcified lymph nodes02/10/2025ED (erectile dysfunction) 02/10/2025Episode of recurrent major depressive /17/2025Former tobacco use02/10/2025Hypogonadism male02/10/2025Morbid (severe) obesity due to excess vcmalbfp54/17/2025Prostate cancer utjbhbwal23/17/2025quired buried penis 4Cerumen debris on tympanic membrane of both ears07/23/2024Mild cognitive cmuoafncub39/27/2024Suspected chronic obstructive pulmonary disease based on initial zxepiptmvc87/29/2024cute /24/4856Omrgta32/24/2022 Benign essential rzsvyoqzpced29/24/2022oronary dejkasfrsyqcirdp04/24/2022Cough 2Depressive vbihjacb20/24/9426Sflmpswfqpbcim94/24/2022Hypertensive mshwoehc92/24/2022Impaired fasting zvxqyti8407/20/2022Neck vgfxwh5907/20/2022ain in joint involving ankle and foot07/20/2022recordial pain07/20/2022olitary pulmonary qkvasj5707/20/2022besity (BMI 30-39.9)/hronic GERD yslipidemiaType 2 diabetes mellitus without complication, without long-term current use of fujfeob3311/13/2020 08/31/20239122Pivqbcxyahne68Rectal tnxvuckl34 Sleep apnea Encounters DateTypeDepartmentCare RupoQrhazqnoogt36/15/2025Ref[facility] [address] [place] [address] Patricia Brennan MA Benign hypertension without congestive heart failurefrom Last 3 Months Family History Medical HistoryRelationNameCommentsHypertensionBrotherDiabetesMotherHeart attack OtherRelationNameStatusCommentsBrotherDeceasedFatherDeceasedMotherDeceasedOther SisterAlive Social History Tobacco UseTypesPacks/DayYears UsedDateSmoking Tobacco: FormerCigarettes Smokeless Tobacco: CurrentChew Tobacco Cessation:Ready to Q uit: Not Asked; Counseling Given: Not Answered Alcohol UseStandard Drinks/WeekCommentsYes0 (1 standard drink = 0.6 oz pure alcohol)MODERATEUT Safety & EnvironmentAnswerDate RecordedFear of Current or Ex-PartnerNot on file01/18/2024Emotionally AbusedNot on file01/18/2024hysically AbusedNot on file01/18/2024Sexually AbusedNot on file01/18/2024hysically or Sexually AbusedNot on file01/18/2024Sex and Gender InformationValueDate Recorded Sex Assigned at BirthNot on fileLegal PlzYkji9205/25/2022 11:37 PM EDTGender IdentityNot on fileSexual OrientationNot on file Last Filed Vital Signs Vital SignReadingTime TakenCommentsBlood Zuzvivuf838/8604 9:17 AM EDT Rwhpc3128 9:17 AM EDTTemperature--Respiratory Jrkn490403/22/2024 12:50 PM EDTOxygen Ascwobjztc04%03/14/2025 9:17 AM EDTInhaled Oxygen Concentration-- Zktxoz512 kg (314 lb)03/14/2025 9:17 AM KAJHffrpx664.9 cm (6')03/14/2025 9:17 AM EDTBody Mass Index42.59003/14/2025 9:17 AM EDT Plan of Treatment Health MaintenanceDue DateLast DoneCommentsCT Mzoyvuprxocr57/03/1958Diabetes: Hemoglobin A1C1957FIT-DNA1957FIT1957FOBT1957Medicare Annual Wellness (AWV)1955 7421Ninkmlmlngiem53/03/1958Diabetes: Retinopathy Kksusabaq73/03/1968Depression Djsbqbbdk17/03/1970Pneumococcal Vaccine: 50+ Years (1 of 2 - PCV)1976Adult Pkkowwv5411/29/1979Fall Risk Qgjxitrlr38/03/2023 Diabetes: Urine Protein Gzlkuwsxy81/OVID-19 Vaccine ( season), 03/06/2021, 02/06/2021Influenza Vaccine (#1) /12/2022, 09/12/2021, 08/27/2020, Additional history exists Roqghppajpq07/03/203407/01/2024, 04/08/2014Colorectal Cancer Akmgyhurq89/03/2034 Zoster SizfrptqOwfqklzxh11/01/2019, 11/27/2018, 09/11/2018, Additional history existsHIB VaccinesAged OutNo longer eligible based on patient's age to complete this topicHPV VaccinesAged OutNo longer eligible based on patient's age to complete this topicIPV VaccinesAged OutNo longer eligible based on patient's age to complete this topicMeningococcal B VaccineAged OutNo longer eligible based on patient's age to complete this topicMeningococcal VaccineAged OutNo longer eligible based on patient's age to complete this topicRotavirus VaccinesAged Out No longer eligible based on patient's age to complete this topic Insurance Care Teams Team MemberRelationshipSpecialtyStart DateEnd Date Rachid Henning MD [address] [place] [address] [facility] - Kqpohpc76/5/23
--- OUTSIDE RECORDS SUMMARY | 2025-10-03 09:56 | XMS_ITS | Clinical Summary ---
Author Organization [facility] Healthcare Address [address] [place] [address] Care Team Providers Care Automated Equipment Engineer Technician Name Role Phone Tammy Hardy NP Unavailable [phone] Rachid Henning MD Primary Care Provider [phone] Shaikh МАРИНА Acevedo Unavailable [phone] Allergies Active AllergyReactionsCriticalityNoted DateCommentsOxycodoneHivesMedium 11/16/2023 Medications MedicationSigDispense QuantityRefillsLast FilledStart DateEnd DateStatus albuterol HFA (Ventolin HFA) 90 mcg/act inhaler Indications:Suspected chronic obstructive pulmonary disease based on initial evaluationInhale 2 puffs every 4 (four) hours if needed for wheezing 18 g 11/07/2024ctive amLODIPine (Norvasc) 10 MG tablet Indications:Primary hypertensionTake 1 tablet (10 mg) by mouth Daily 90 tablet ctive ASPIRIN 81 MG chewable tablet Indications:Primary hypertensionChew 1 tablet (81 mg) Daily 90 tablet ctive fexofenadine (Lamar Allergy) 180 MG tablet Indications:Suspected chronic obstructive pulmonary disease based on initial evaluationTake 1 tablet (180 mg) by mouth Daily 90 tablet 11/07/2024ctive isosorbide mononitrate ER (Imdur) 60 MG 24 hr tablet Indications:Primary hypertensionTake 1 tablet (60 mg) by mouth Daily 90 tablet 11/07/2024ctive lisinopril-hydroCHLOROthiazide 20-12.5 MG tablet Indications:Essential (primary) hypertensionTake 1 tablet by mouth Daily 90 tablet ctive metoprolol succinate XL (Toprol-XL) 100 MG 24 hr tablet Indications:Primary hypertensionTake 1 tablet (100 mg) by mouth in the morning. 30 tablet 14101/08/010205/6Active omeprazole (PriLOSEC) [address] capsule Indications:Chronic GERDTake 1 capsule (20 mg) by mouth at bedtime 90 capsule 5Active PARoxetine (Paxil) 40 MG tablet Indications:Persistent depressive disorderTake 1 tablet (40 mg) by mouth Daily 90 tablet 5Active metFORMIN (Glucophage) 850 MG tablet Indications:Type 2 diabetes mellitus without complication, without long-term current use of insulin (HCC)Take 1 tablet (850 mg) by mouth in the morning and 1 tablet (850 mg) in the evening. Take with meals. 180 tablet 5Active anastrozole (Arimidex) 1 MG chemo tablet Take 1 mg by mouth 1 (one) time per week.Active spironolactone (Aldactone) 25 MG tablet Take 12.5 mg by mouth in the morning.504/6Active semaglutide (Ozempic, 1 MG/DOSE,) 4 MG/3ML solution pen-injector Inject 1 mg under the skin 1 (one) time per week4Active atorvastatin (Lipitor) 40 MG tablet Indications:Hyperlipidemia, unspecifiedTake 1 tablet (40 mg) by mouth at bedtime 90 tablet 5Active Active Problems ProblemNoted DateDiagnosed DateType 2 diabetes mellitus with other specified ruzzexjjkibb94/17/2025 Assessment & Plan (05/13/2025 6:16 AM EDT): HTN, CAD, ED Encounter for subsequent annual wellness visit (AWV) in Medicare patient 05/13/2025 Assessment & Plan (05/13/2025 6:17 AM EDT): Reviewed Ht/Wt/BMI Recommend eye exam yearly Recommend dental exams twice a year Balance work/leisure activities Exercises is recommended most days of the week (appropriate as chronic conditions allow) Follow up yearly and prn Chest pain03/11/2025Umbilical qqzlbr0903/11/2025Pulmonary fibrosis, unspecified 02/10/2025 Assessment & Plan (02/10/2025 6:57 AM EDT): Follows with dr rust Current meds: albuterol prn Morbid (severe) obesity due to excess hxfxiihx99/17/2025 Assessment & Plan (05/13/2025 6:16 AM EDT): [...] juices, and sugary drinks. Calcified granuloma of lung02/10/2025alcified lymph nodes02/10/2025ED (erectile dysfunction)02/10/2025Former tobacco use02/10/2025Hypogonadism male02/10/2025 Obstructive sleep apnea lnaxzxbn13/17/2025 Assessment & Plan (05/13/2025 6:15 AM EDT): [...] that supplies your machine and tubing/filters etc: [facility] Doctor that manages your ZEN[facility]: Dr Og [...] Dr Og Episode of recurrent major depressive mkiwwwbv08/17/2025 Assessment & Plan (02/10/2025 1:45 PM EDT): Current med: paxil ( has been on this 15-20 years) PHQ 9=2 VINICIO 7= 0 Prostate cancer gjbivbfbr25/17/2025 Overview (03/14/2025): 03/13/25: 1.70 Cerumen debris on tympanic membrane of both ears07/23/2024cquired buried penis 07/23/2024 Assessment & Plan (07/23/2024 12:16 PM EDT): Reports dysuria Has difficulty with urinary flow Report penis is withdrawn internally. Has hard time initiating and controlling flow Was taking viagra once per month to help, has never seen urology. Body mass index (BMI) 40.0-44.9, adult05/23/2024 Assessment & Plan (11/07/2024 9:48 AM EST): [...] Follow up in one month Mild cognitive lvaalzsnkq39/27/2024 Assessment & Plan (02/10/2025 7:03 AM EDT): Under the care of neurology Has also had MRI brain and neuropsych testing as well Assessment & Plan (07/23/2024 12:18 PM EDT): Following with Neurology- Sees Dr. Lucero and was referred to additional specialisat @ [facility] Neurology- Appointment on 07/30/2024; MRI completed on 07/15/2024. Assessment & Plan (05/23/2024 10:59 AM EDT): Mild Cognitive impairment on initial screening. Increasingly forgetful, has to write down everything to remember. Will refer to Neurology. Discussed his alcohol use, drinks about 4-5 cans of beers daily - need to cut down. Suspected chronic obstructive pulmonary disease based on initial evaluation 01/25/2024 [...] underlying reactive airway disease Order PFTs. Coronary gesiujscgxrqudgy16/24/2022 Assessment & Plan (05/13/2025 6:15 AM EDT): Current meds: statin, imdur, demarco/hydrochlorothiazide, b denice, asa Cardiology: [facility] Assessment & Plan (02/10/2025 1:44 PM EDT): Current meds: statin, imdur, demarco/hydrochlorothiazide, b denice, asa Cardiology: [facility] Assessment & Plan (05/23/2024 10:57 AM EDT): Non obs CAD on [facility] in 2014. On ASA, stain, imdur and Toprol Follows [facility] cardiology. Denies CP, SOB, palpitations. Assessment & Plan (01/25/2024 11:02 AM EST): Non obs CAD on [facility] in 2014. On ASA, stain, imdur and Toprol Follows [facility] cardiology. Denies CP, SOB, palpitations. Vowzjfdbxomake94/24/2022 Assessment & Plan (02/10/2025 7:01 AM EDT): [...] On lipitor, check lipid panel. Solitary pulmonary lwxtyb0007/20/2022 Overview (04/02/2025): Fu CT done 04/02/25 by [...] pulm nodule left lower lobe Benign essential euzhzstxaffn78/18/2020 Assessment & Plan (05/13/2025 6:15 AM EDT): Please check blood pressure daily and record DASH diet Limit caffeine Take medication as directed Contact office if chest pain, pressure, dizziness, shortness of breath, swelling legs Recommend slow position changes Current meds: amlodipine, imdur, demarco/hydrochlorothiazide, b deniec Assessment & Plan (02/10/2025 6:58 AM EDT): [...] EST): Decrease lisinopril-hydrochlorothiazide to once daily. Chronic GERD11/13/2020 Assessment & Plan (02/10/2025 6:59 AM EDT): [...] off on it. Type 2 diabetes mellitus without complication, without long-term current use of cclsrml8211/13/2020 Assessment & Plan (05/13/2025 10:22 AM EDT): [...] once blood work is back. Resolved Problems ProblemNoted DateDiagnosed DateResolved DateType 2 diabetes mellitus without ndxlujqbaqxqw35/17/202506/Skin mole/ Assessment & Plan (01/25/2024 1:12 PM EST): Mole noted over his back. Irregular margin, raised, with color variation. No growth. Suspect melanoma - refer to derm Non-recurrent acute suppurative otitis media of both ears without spontaneous rupture of tympanic yobuhamme39/ Assessment & Plan (11/16/2023 10:44 AM EST): [...] persistent fever, confusion develops. Acute bronchitis with gbdbqfay13yslipidemia11/13/2020 02/10/2025Persistent depressive opjkvovu20 Assessment & Plan (01/25/2024 11:04 AM EST): On Paroxetine 40 mg. Has been using it for over 20 years now. Patient reports intermittent depression but overall symptoms well controlled. HTN (hypertension) Assessment & Plan (11/07/2024 9:47 AM EST): [...] check his BP daily but he reports BPfluctuates. Uses all of his medications in the morning. He is using Lisinopril- hydrochlorothiazide twice a day Asked patient to use it once a day. Asked patient to use Lisinopril- hydrochlorothiazide at night only and take rest of his meds during day time. Patient asked to check his BP at home and maintain BP log and bring it to us next appointment so that we can adjust his medications. Sleep apnea Assessment & Plan (02/21/2024 10:01 AM EDT): Repeat Sleep Study performed 02/17 - will get a new CPAP and mask. Following Sleep Clinic now. Assessment & Plan (01/25/2024 11:05 AM EST): Using CPAP. Patient had Sleep Study in 2004. Has not had a repeat sleep study. Will refer to Sleep Clinic. Immunizations ImmunizationAdministration DatesNext DueInfluenza, High-dose Seasonal, Quadrivalent, Preservative Free09/28/2023Influenza, Xmgoffwbcua90/02/2023, 09/12/2021,08/27/2020,08/26/2020,11/18/2019,08/14/2018,09/15/2017,10/16/2015, 08/05/2013,08/09/2012,08/12/2011,07/28/2011Influenza, injectable, quadrivalent 11/18/2019Influenza, injectable, quadrivalent, preservative free09/12/2021, 08/26/2020Influenza, seasonal, sntswwixsp64/18/2018,09/15/2017,10/16/2015 Influenza, seasonal, injectable, preservative free08/05/2013,08/09/2012, 08/12/2011Zoster, Vluxbbuyhgw25/01/2019,11/27/2018,09/11/2018,03/10/2018 Family History Medical HistoryRelationNameCommentsCancerBrotherHeart attackBrotherHeart disease BrotherHypertensionBrotherDiabetesMotherCancerSisterHypertensionSisterRelation NameStatusCommentsBrotherDeceasedMotherSister Social History Tobacco UseTypesPacks/DayYears UsedDateSmoking Tobacco: FormerCigarettes0.52 Passive Smoke Exposure: PastSmokeless Tobacco: CurrentChew Tobacco Cessation:Ready to Q uit: Not Asked; Counseling Given: Not Answered Alcohol UseStandard Drinks/WeekCommentsNever0 (1 standard drink = 0.6 oz pure alcohol)B1300 Health LiteracyAnswerDate RecordedHow often do you need to have someone help you when you read instructions, pamphlets, or other written material from your doctor or pharmacy?Never07/16/2024Social Connection and Isolation PanelAnswerDate RecordedIn a typical week, how many times do you talk on the phone with family, friends, or neighbors?More than three times a week 07/16/2024How often do you get together with friends or relatives?Twice a week 07/16/2024How often do you attend jewish or gnosticist services?Never07/16/2024o you belong to any clubs or organizations such as jewish groups, unions, fraternal or athletic groups, or school groups?No07/16/2024How often do you attend meetings of the clubs or organizations you belong to?Never07/16/2024re you , , , , never , or living with a partner?Skaylry2907/16/2024UDIT-CAnswerDate RecordedQ1: How often do you have a drink containing alcohol?4 or more times a week07/16/2024Q2: How many drinks containing alcohol do you have on a typical day when you are drinking?3 or 4 07/16/2024Q3: How often do you have six or more drinks on one occasion?Weekly 07/16/2024Overall Financial Resource Strain (CARDIA)AnswerDate RecordedHow hard is it for you to pay for the very basics like food, housing, medical care, and heating?Not very hard07/16/2024HQ-2AnswerDate RecordedPatient Health Questionnaire-2 Loinj216Finbeaver valley hospital [facility] Occup[facility] - Occupational Stress QuestionnaireAnswerDate RecordedDo you feel stress - tense, restless, nervous, or anxious, or unable to sleep at night because yourmind is troubled all the time - these days?Only a lfvgsy5107/16/2024Exercise Vital Sign AnswerDate RecordedOn average, how many days per week do you engage in moderate to strenuous exercise (like a brisk walk)?3 days07/16/2024On average, how many minutes do you engage in exercise at this level?20 min07/16/2024Hunger Vital SignAnswerDate RecordedWithin the past 12 months, you worried that your food would run out before you got the money to buymore.Never true07/16/2024Within the past 12 months, the food you bought just didn't last and you didn't have money to get more.Never true07/16/2024RAPARE - TransportationAnswerDate RecordedIn the past 12 months, has lack of transportation kept you from medical appointments or from getting medications?No07/16/2024In the past 12 months, has lack of transportation kept you from meetings, work, or from getting things needed for daily living?No07/16/2024Housing Stability Vital SignAnswerDate RecordedIn the last 12 months, was there a time when you were not able to pay the mortgage or rent on time?No07/16/2024Number of Times Moved in the Last Year Not on file07/16/2024t any time in the past 12 months, were you homeless or living in a mcfp (including now)?No07/16/2024Sex and Gender InformationValue Date RecordedSex Assigned at BirthNot on fileLegal SakFsrs2402/08/2023 7:19 PM EDT Gender IdentityNot on fileSexual OrientationNot on file Last Filed Vital Signs Vital SignReadingTime TakenCommentsBlood Qbvjnxad045/8205/13/2025 9:59 AM EDT Rzsir552905/13/2025 9:59 AM KZXHnnswghblue00.9 ??C (96.7 ??F)05/13/2025 9:59 AM EDTRespiratory Gwgm045005/13/2025 9:59 AM EDTOxygen Cszhnawifo53%05/13/2025 9:59 AM EDTInhaled Oxygen Concentration--Ygqjoc032 kg (319 lb 3.2 oz)05/13/2025 9:59 AM UUMKtgemn576.9 cm (6')11/07/2024 9:29 AM ESTBody Mass Index43.29101/08/2024 9:29 AM EST Plan of Treatment Health MaintenanceDue DateLast DoneCommentsCT Pjyzdrcjfpgy21/03/1958FIT-DNA 1957FIT1957FOBT1957 9183Tobxtvetnfojr16/03/1958COVID-19 Vaccine ( season)/, 03/06/2021, 02/06/2021Influenza Vaccine (#1)09/01/, 09/28/2023, 09/12/2021, Additional history exists Diabetes: Hemoglobin A1C, 02/10/2025, 02/01/2024, Additional history existsPneumococcal Vaccine: 65+ Years (1 of 2 - PCV)02/10/2026Postponed from 1976 (Patient Refused)Diabetes: Urine Protein Kpolevuqa72/16/2026 03/12/2025, 02/01/2024, 07/12/2022, Additional history existsMedicare Annual Wellness (AWV)6005/13/2025, 05/23/2024, 05/23/2024iabetes: Retinopathy Posywauug50, 07/25/2023, 05/29/20233078Hwzjiuwpvib81/03/2034 05/29/2024, 05/29/2024, 04/08/2014Colorectal Cancer Lumzquzcx22/03/2034 Goals GoalPatient Goal TypeAssociated ProblemsRecent ProgressPatient-Stated?Author Help patient manage antidepressant medication Care PlanPatient on antidepressant monitoring Tammy Licea NP Procedures Procedure NamePriorityDate/TimeAssociated DiagnosisCommentsPOCT GLYCOSYLATED HEMOGLOBIN (HGB A1C)Ireigdc1205/13/2025 10:22 AM EDT Type 2 diabetes mellitus without complication, without long-term current use of insulin (HCC) DIABETIC RETINOPATHY SCREENING - OU - BOTH OMABVtwgggt86/01/2024 12:41 PM EDT from Last 3 Months or Most Recently Relevant to Health Maintenance Results * (ABNORMAL) POCT glycosylated hemoglobin (Hb A1C) docked device (05/13/2025 10:22 AM EDT)ComponentValueRef RangeTest MethodAnalysis TimePerformed At Pathologist SignatureHemoglobin A1C7.7Specimen (Source)Anatomical Location / LateralityCollection Method / VolumeCollection TimeReceived TimeBloodVenous blood specimen / Fhtccyk6305/13/2025 10:22 AM EDT Narrative Authorizing ProviderResult TypeResult StatusLisa Solorzano NPPOINT OF CARE TEST ENTER/EDIT ORDERABLESFinal Result * Diabetic Retinopathy Screening - OU - Both Eyes (05/27/2024 12:41 PM EDT) Anatomical RegionLateralityModalityHeadOther Narrative Authorizing ProviderResult TypeResult StatusShaikh Kristina PARISHOPHTH PHOTOGRAPHY Final Result from Last 3 Months or Most Recently Relevant to Health Maintenance Additional Health Concerns Active ProblemsNoted DateDiagnosed DatePatient on antidepressant monitoring plan 11/07/2024 Insurance Care Teams Team MemberRelationshipSpecialtyStart DateEnd Date Rachid Henning MD PCP - GeneralFamily Medicine07/23/24 Shaikh Acevedo MD [address] [place] [address] PCP - [employer]10/27/23 Tammy Hardy NP Nurse PractitionerFamily Medicine07/01/24
--- OUTSIDE RECORDS SUMMARY | 2025-10-03 09:56 | XMS_ITS | Clinical Summary ---
Author Organization [facility] Address [address], [address] [place] [address] Care Team Providers Care Software Tools Developer Name Role Phone Marbella Ortiz MD Primary Care Provider Unavailable Allergies Active AllergyReactionsCriticalityNoted DateCommentsOxycodoneHives,Itching 05/13/2013 Medications MedicationSigDispense QuantityRefillsLast FilledStart DateEnd DateStatus pravastatin (PRAVACHOL) 80 MG tablet Take 80 mg by mouth nightlyActive paroxetine (PAXIL) 40 MG tablet Take 40 mg by mouth every morning.Active fexofenadine (CHERELLE ALLERGY) 180 MG tablet Take 180 mg by mouth daily.Active omeprazole (PRILOSEC) 20 MG capsule Take 20 mg by mouth nightlyActive atorvastatin (LIPITOR) 40 MG tablet Take 40 mg by mouth nightlyActive aspirin 81 MG tablet Take 81 mg by mouth dailyActive metFORMIN (GLUCOPHAGE) 500 MG tablet Take 500 mg by mouth daily (with breakfast)Active lisinopril-hydrochlorothiazide (PRINZIDE;ZESTORETIC) 20-25 MG per tablet Take 1 tablet by mouth dailyActive Coenzyme Q10 (CO Q-10) 200 MG CAPS Take 1 capsule by mouth dailyActive acetaminophen (TYLENOL) 500 MG tablet Take 500 mg by mouth daily Takes 2 tablets in AM.Active Active Problems ProblemNoted DateDiagnosed DateRectal nekrwtms26/22/6950Vhwtbh80/22/2014 Zojexpwacfvn16/22/2014HTN (hypertension)05/13/2013Sleep apnea04/16/2012Lung nodule, Rt04/16/2012 Immunizations ImmunizationAdministration DatesNext DueInfluenza Virus Oxxcwro6507/28/2011 Family History Medical HistoryRelationNameCommentsDiabetesMotherHeart AttackMotherRelationName StatusCommentsFatherDeceasedMotherDeceased Social History Tobacco UseTypesPacks/DayYears UsedDateSmoking Tobacco: FormerCigarettes1.54 05/13/1978 - 05/13/1982Smokeless Tobacco: CurrentSnuffAlcohol UseStandard Drinks/WeekCommentsYes2 (1 standard drink = 0.6 oz pure alcohol)Sex and Gender InformationValueDate RecordedSex Assigned at BirthNot on fileLegal SexMale 01/06/2013 9:22 AM ESTGender IdentityNot on fileSexual OrientationNot on file Last Filed Vital Signs Vital SignReadingTime TakenCommentsBlood Kszxrulz164/68006/20/2017 1:08 PM EDT Krcbn837106/20/2017 1:08 PM KHVTrqbxcbqudg17.2 ??C (97.1 ??F)06/20/2017 1:08 PM EDTRespiratory Ypbq822406/20/2017 1:08 PM EDTOxygen Wrxcfijysq79%06/20/2017 1:08 PM EDTInhaled Oxygen Concentration--Vjhlou802.3 kg (263 lb)06/20/2017 1:08 PM SOXAjuksq188.9 cm (6')06/20/2017 1:08 PM EDTBody Mass Index35.67006/20/2017 1:08 PM EDT Plan of Treatment Not on file Medical Devices ImplantedTypeAreaManufacturerDevice IdentifierShelf Expiration DateModel / Serial / LotPatch Juve Ventralex St W/Strap Cir Med 6.4cm Implanted:Qty: 1 on 05/17/2017 [facility]: UmbilicalCR [employer]-[id number] / / [id number] Insurance Care Teams Team MemberRelationshipSpecialtyStart DateEnd Date Marbella Ortiz MD [facility]04/12/12
--- OUTSIDE RECORDS SUMMARY | 2025-10-03 09:56 | XMS_ITS | Encounter Summary ---
Author Organization [facility] Address [address] [place] [address] Care Team Providers Care Cash Register Servicer Name Role Phone Rachid Henning MD Primary Care Provider [phone] Rachid Henning MD Primary Care Provider [phone] Shaikh МАРИНА Acevedo Primary Care Provider [phone] Tammy Hardy NP Unavailable [phone] Rachid Henning MD Primary Care Provider [phone] Shaikh МАРИНА Acevedo Unavailable [phone] Encounter Details DateTypeDepartmentCare Team (Latest Contact Info)Rnbyjjulivy16/15/2024Clinisync Result Encounter [facility] Department Unsolicited Shaikh Acevedo MD [address] [place] [address] Social History Tobacco UseTypesPacks/DayYears UsedDateSmoking Tobacco: NeverSmokeless Tobacco: CurrentChewAlcohol UseStandard Drinks/WeekCommentsNever0 (1 standard drink [...] a week 07/16/2024How often do you attend caodaism or voodoo services?Never07/16/2024o you belong to any clubs or organizations such as caodaism groups, unions, fraternal or athletic groups, or school groups?No07/16/2024How often do you attend meetings of the clubs or organizations you belong to?Never07/16/2024re you , , , , never , or living with a partner?Klthzvj5407/16/2024UDIT-CAnswerDate RecordedQ1: How often do you have a [...] and heating?Not very hard07/16/2024HQ-2AnswerDate RecordedPatient Health Questionnaire-2 Ywsvs375Finen[facility] [place] [facility] - Occupational Stress QuestionnaireAnswerDate RecordedDo you feel stress - tense, restless, nervous, or anxious, or unable to sleep at night because yourmind is troubled all the time - these days?Only a inpolp2007/16/2024Exercise Vital Sign AnswerDate RecordedOn average, how many [...] or from getting things needed for daily living?07/16/2024Housing Stability Vital SignAnswerDate RecordedIn the last 12 months, was there a time when you were not able to pay the mortgage or rent on time?No07/16/2024Number of Times Moved in the Last Year Not on file07/16/2024t any time in the past 12 months, were you homeless or living in a alf (including now)?No07/16/2024Sex and Gender InformationValue Date RecordedSex Assigned at BirthNot on fileLegal WpiQvps2802/08/2023 7:19 PM EDT Gender IdentityNot on fileSexual OrientationNot on filedocumented as of this encounter Functional Status * AUDIT-C ScoreAnswerDate of DqkpdcmgttQmpxrb981 5:31 PM Kathryn Generic * Q1: How often do you have a drink containing alcohol?AnswerDate of Assessment Author4 or more times a week07/16/2024 5:31 PM Kathryn Generic * Q2: How many drinks containing alcohol do you have on a typical day when you are drinking?AnswerDate of AssessmentAuthor3 or 408 5:31 PM EDT Kristina Generic * Q3: How often do you have six or more drinks on one occasion?AnswerDate of LtnhmcdlhzVloueeMyaepz92/20/2024 5:31 PM Kathryn Generic * Over the past 2 weeks, how often have you been bothered by any of the following problems?QuestionAnswerDate of AssessmentAuthorLittle interest or pleasure in doing thingsNot at all05/13/2025 10:00 AM Yesika Marroquin MAFeeling down, depressed, or hopelessNot at all05/13/2025 10:00 AM EDT Yesika Monahan MAPatient Health Questionnaire-2 Iubpv698 10:00 AM Yesika Marroquin MA * QuestionAnswerDate [...] wayNot at all05/13/2025 10:00 AM Yesika Marroquin MAPatient Health Questionnaire-9 Gohko115 10:00 AM Yesika Marroquin MA * How difficult have these problems made it for you to do your work, take care of things at home, or get along with other people?AnswerDate of Assessment AuthorNot difficult at all05/23/2024 10:29 AM Shaikh Iqbal MD documented as of this encounter Plan of Treatment Not on file documented as of this encounter Procedures Procedure NamePriorityDate/TimeAssociated DiagnosisCommentsXR CHEST 2V01/11/2024 11:53 AM EST documented in this encounter Results * XR CHEST 2V (01/11/2024 11:53 AM EST)Anatomical RegionLateralityModalityOther Specimen (Source)Anatomical Location / LateralityCollection Method / Volume Collection TimeReceived Time01/11/2024 11:53 AM EST Narrative 01/11/2024 11:56 AM EST [facility] ?[address] ? [place] [address] ?XRay Report ? Signed ? Patient: NORI,FUNMI ? MR#: [id number] ?? : 1955 ?Acct:[id number] ?? Age/Sex: 68 / M ?ADM Date: 02/15/24 ?? Loc: RAD ? Attending Dr: Shaikh Kristina Diane ? Ordering Physician: Shaikh Roxi Acevedo ?? Date of Service: 01/11/24 ?? Procedure(s): XR chest 2V ?? Accession Number(s): [id number] ? cc: Shaikh Roxi cAevedo; Rachid Henning M.D. ? [facility] ? [address] ? [place] [address] ? Patient Name: ?? FUNMI ??NORI ? MRN: [facility]:[id number] ? date: 1955 ?Sex: M ?? Assigned Patient Location: RAD ?? Current Patient Location: RAD ?? Accession/Order Number: [id number] ?? Exam Date: 01/11/2024 ??11:38 ?Report Date: 01/11/2024 ??11:53 ? At the request of: ?KRISTINA ? Procedure: ??XR chest 2V ? EXAM: XR chest 2V ? HISTORY: Abnormal Chest Xray R93.89 ? COMPARISON: 11/16/2023 ? TECHNIQUE: PA and lateral views of the chest. ? FINDINGS: ?? The cardiomediastinal silhouette is normal. ? Improved mild atelectasis or infiltrate of the right mid lung field since ?? prior ?? exam. ?? There is no pneumothorax. ?? No pleural effusion is noted. ? The osseous structures are intact. ? XR/XR chest 2V ?? IMPRESSION: ?? Improved mild atelectasis or infiltrate of the right mid lung field since ?? prior ?? exam. ? 7 mm pulmonary nodule of the left lower lobe is unchanged. ? Electronically authenticated by: ORLANDO ??LE ?? Date: 01/11/2024 ??11:53 ? Dictated By: ?Lula,Orlando M.D. ? Signed By: ?01/11/241155 ? DD/ 52 ? TD/TT: ? Nursing Secretary: Procedure Note Radiology, Radiologist, MD - 01/31/[address] [address] XRay Report Signed Patient: FUNMI PAULMR#: [id number] : 1955cct:[id number] Age/Sex: 68 / MADM Date: 01/11/24 Loc: RAD Attending Dr: Shaikh Kristina Diane Ordering Physician: Shaikh Roxi Acevedo Date of Service: 01/11/24 Procedure(s): XR chest 2V Accession Number(s): [id number] cc: Shaikh Roxi Acevedo; Rachdi Henning M.D. The [address] [address] Patient Name: FUNMI PAUL MRN: [id number] date: 1955 Sex: M Assigned Patient Location: [facility] Current Patient Location: [facility] Accession/Order Number: [id number] Exam Date: 01/11/2024 11:38 Report Date: 01/11/2024 11:53 At the request of: SHAIKH KRISITNA Procedure: XR chest 2V EXAM: XR chest [...] lobe is unchanged. Electronically authenticated by: ORLANDO COTTON Date: 01/11/2024 11:53 Dictated By: Orlando Cotton M.D. Signed By:01/11/24 1156 DD/ 1153 TD/TT: Nursing Secretary: Authorizing ProviderResult TypeResult StatusShdevante Acevedo MDCLINISYNC IMAGING Final Result documented in this encounter Visit Diagnoses Not on filedocumented in this encounter Care Teams Team MemberRelationshipSpecialtyStart DateEnd Date Rachid Henning MD PCP - GeneralFamily Medicine Rachid Henning MD PCP - GeneralFamily Medicine Shaikh Acevedo MD PCP - GeneralInternal Medicine Rachid Henning MD PCP - GeneralFamily Medicine07/23/24 Shaikh Acevedo MD [address] [place] [address] PCP - [employer]10/27/23 Tammy Hardy NP Nurse PractitionerFaialy Medicine07/01/24documented as of this encounter
--- OUTSIDE RECORDS SUMMARY | 2025-10-03 09:56 | XMS_ITS | Patient Health Record ---
Author Organization [facility] Address [address] [place] [address] Care Team Providers Care Orthotic Practitioner Name Role Phone Lela Solorzano CNP Primary Care Provider Unavail able Fracisco Marcelino Unavailable [phone] Allergies Allergen (clinical drug ingredient) Drug/Non Drug Allergy documented on EMR Reaction Allergy Type Onset Date Status oxycodone Oxycodone hives Drug Allergy Active Results Component Value Reference Range Notes CT chest wo con Reviewed date:04/02/2025 10:44:20 AM Interpretation: Performing Lab: Notes/Report: Source Facility: [place] [address] CT Scan Report Signed Patient: JAYSON PAUL MR#: [id number] : 1955 Acct:[id number] Age/Sex: 69 / M ADM Date: 04/02/25 Loc: CT Attending Dr: Fracisco Marcelino D.O. Ordering Physician: Fracisco Marcelino D.O. Date of Service: 04/02/25 Procedure(s): CT chest wo con Accession Number(s): [id number] cc: Lela Solorzano NP [place] [id number] Patient Name: JAYSON PAUL MRN: [id number] date: 1955 Sex: M Assigned Patient Location: CT Current Patient Location: CT Accession/Order Number: [id number] Exam Date: 04/02/2025 09:52 Report Date: 04/02/2025 09:55 At the request of: FRACISCO TAMIKO ALVARADO Procedure: CT chest wo con CT CHEST [...] Jr., D.O. 04/02/2025 9:55 AM Dictation Location: [place] [address] Electronically authenticated by: [id number] Y Date: 04/02/2025 09:55 Dictated By: John Sneed M.D. Signed By: 04/02/25 0957 DD/ 0955 TD/TT: Lithopress Operator: CT Chest w/o contrast Reviewed date:04/02/2025 10:07:53 AM Interpretation: Performing Lab: Notes/Report: Reason For Referral No Information Medications Medication SIG (Take, Route, Frequency, Duration) Notes Start Date End Date Status Lisinopril-hydroCHLOROthiazide 20-12.5 MG Oral; Duration: 90 Days ActivemetFORMIN HCl 850 MGTAKE 1 TABLET BY MOUTH DAILY Oral; Duration: 90 Days ActiveMetoprolol Succinate ER 100 MGOral; Duration: 90 DaysActiveOmeprazole 20 MGOral; Duration: 90 DaysActivePARoxetine HCl 40 MGTAKE 1 TABLET BY MOUTH DAILY Oral; Duration: 90 DaysActiveAlbuterol Sulfate HFA 108 (90 Base) MCG/ACT Inhalation; Duration: 17 DaysActivetraMADol HCl 50 MG1 tablet as needed Orally Once a day4ActiveamLODIPine Besylate 10 MGTAKE 1 TABLET BY MOUTH DAILY Oral; Duration: 90 DaysActiveOzempic (0.25 or 0.5 MG/DOSE) 2 MG/3MLSubcutaneous; Duration: 42 DaysNot-TakingAspirin 81 MG1 tablet Orally Once a dayActive Atorvastatin Calcium 40 MGTAKE 1 TABLET BY MOUTH AT BEDTIME Oral; Duration: 90 DaysActiveFexofenadine HCl 180 MG1 tablet Swallow whole with water; do not take with fruit juices. Orally Once a dayActiveIsosorbide Mononitrate ER 60 MGOral; Duration: 90 DaysActive Immunizations Vaccine Route Administration Date Status Comme nts Flu, Fluzone High-Dose (2022 -2023) (97507) 65 yrs+ Unknown 09/28/2023 Administered SARS-COV-2 (COVID 19 Moderna - Booster 0.25mL)Bmjnvfh7510/23/2021dministered ZOSTER (SHINGLES) VACCINE (HZV)Awzawuz0309/11/2018Administered Social History Tobacco Use: Social History Observation Description Date Details (start date - stop date) Former Smoker NA - NA Tobacco use other than smoking: Question Answer Notes Are you an other tobacco user? Yes C hew Tobacco Control (Standard) Question Answer Notes Tobacco use: Former smoker How long has it been since you last smoked?Greater than 10 yearsAdditional Findings: Tobacco userChews tobaccoAdditional Findings: Tobacco rdu-knzpGy-jrfyv cigarette smoker (20-30/day) Problems Problem Type SNOMED Code ICD Code Onset Dates Problem Status W/U Status Risk Notes Problem Solitary pulmonary nodule (428257552) Sonia itary pulmonary nodule (R91.1) ActiveconfirmedProblemMorbid obesity (489360778)Morbid obesity (E66.01)Active confirmedProblemObstructive sleep apnea syndrome (71817967)ZENON (obstructive sleep apnea) (G47.33)ActiveconfirmedProblemDiabetes mellitus type 2 (disorder) (22743849)DM2 (diabetes mellitus, type 2) (E11.9)ActiveconfirmedProblemEx- tobacco user (finding) (632170242)History of tobacco abuse (Z87.891)Active confirmedProblemCalcified granuloma of lung (44947327056351435)Calcified granuloma of lung (J84.10)ActiveconfirmedProblemCalcified lymph nodes (240650747)Calcified lymph nodes (I89.8)Activeconfirmed Vital Signs Heart Rate 77 /min 03/26/2025 Xranmdwigsc59.9 degrees Gtqadkadxr38/30/2025Respiratory Rate18 /min03/26/2025 Fxyoddtj85 %03/26/2025lood pressure dnqrcaaag42 mm Hg03/26/20251276Rifgil39 in 03/26/2025lood pressure oqdopyzh739 mm Hg03/26/20258930Rdzmlg865.8 lbs03/26/2025MI 43.23 kg/m203/26/2025 Encounters Encounter Location Date Provider Diagnosis Pulmonary [facility] [address] [place] [address] 04/02/2025 [facility] Pulmonary Medicine [address] [place] [address]/30/2025 Fracisco [facility] pulmonary nodule R91.1 ; Shortness of breath R06.02 ; Calcified granuloma of lung J84.10 ;Calcified lymph nodes I89.8 ; ZENON (obstructive sleep apnea) G47.33 ; DM2 (diabetes mellitus, type 2) E11.9 ; History of tobacco abuse Z87.891 and Morbid obesity E66.01 Assessments Encounter Date Diagnosis (ICD Code) Assessment Notes Treatment Notes Treatment Clinical Notes Section Notes 03/26/2025 Solitary pulmonary nodule (ICD-1 0 - R91.1) History from prior visit: 10mm RLL pulmonary nodule. This appears to be present as far back as 2011. The difficulty assessingthis nodule is that imaging studies were performed at 3 different institutions and there are 3 different measurments: -10mm 03/06/2024 - [facility] -8mm 07/12/2022 - [facility] -5mm 03/21/2012 - [facility] (presumptive same location as above) The variation between the two most recent studies could be positional, but unclear if it could explain a 5mm difference. This would represent either scar/granuloma vs. an extremely slow growing iwknvdxzzaowip-ag-icrd. My suspicion is for the former. Options [...] of care dependent on CT chest results. 03/26/2025Shortness of breath (ICD-10 - R06.02) Still has LEMON, but patient states it is not often and he uses albuterol ~1x/month. Concerned patient may be downplaying his symptoms, but he replied that he feels okay and does not want to start a maintenance inhaler. Offered PFT, but he declined at this time. 5Calcified granuloma of lung (ICD-10 - J84.10) Present as far back as 03/21/2012. Consistent with old granulomatous disease. 5Calcified lymph nodes (ICD-10 - I89.8) Present as far back as 03/21/2012. Consistent with old granulomatous disease. 03/26/2025OSA (obstructive sleep apnea) (ICD-10 - G47.33) I am not managing this. 03/26/2025DM2 (diabetes mellitus, type 2) (ICD-10 - E11.9)03/26/2025History of tobacco abuse (ICD-10 - Z87.891) Very brief smoking history - 1ppd x 2 years, quit decades ago. Does not meet LDCT criteria. 03/26/2025Morbid obesity (ICD-10 - E66.01) Patient's weight is inducing a restrictive pulmonary physiology. Weight loss indicated: Decrease calories, increase activity. Plan Of Treatment No Information Insurance Providers Payer Name Payer Address Payer Phone Subscriber Number Group Number Insured Name Patient Relationship to Insured Coverage Start Date Coverage End Date [employer] [address] [place] [address] [id number], MichaelSelf - patient is the insured Medical (General) History Medical History History ICD Code Solitary pulmonary nodule R91.1 Calcified granuloma of lung J84.10 Calcified lymph nodes I89.8 ZENON (obstructive sleep apnea) G47.33 History of tobacco abuse Z87.891 Dyslipidemia E78.5 DM2 (diabetes mellitus, type 2) E11.9 HTN (hypertension) I10 Morbid obesity E66.01 Surgical History Surgery Date(Month/Year) umbilical hernia repair cardiac catheterizationtonsillectomy and adenoidectomylithotripsy
--- OUTSIDE RECORDS SUMMARY | 2025-10-03 09:56 | XMS_ITS | Clinical Summary ---
Author Organization Where Was it Filmed tem Address [id number] [place] [address] Care Team Providers Care Head Boys Golf Coach Name Role Phone Rachid Henning MD Primary Care Provider [phone] Allergies Active AllergyReactionsCriticalityNoted DateCommentsOxycodoneHives,ItchingLow 05/13/2013 Medications MedicationSigDispense QuantityRefillsLast FilledStart DateEnd DateStatus aspirin 81 mg Take 81 mg by mouth daily.Active lisinopril-hydroCHLOROthiazide (PRINZIDE,ZESTORETIC) 20-12.5 mg per tablet Indications:Essential hypertensionTake 1 tablet by mouth in the morning and 1 tablet before bedtime. 180 tablet ctive metFORMIN (GLUCOPHAGE) 850 mg tablet Indications:Type 2 diabetes mellitus without complication, without long-term current use of insulin ([facility])Take 1 tablet (850 mg total) by mouth in the morning. 90 tablet ctive atorvastatin (LIPITOR) 40 mg tablet Indications:DyslipidemiaTake 1 tablet (40 mg total) by mouth in the morning. 90 tablet ctive amLODIPine (NORVASC) 10 mg tablet Indications:Essential hypertensionTake 1 tablet (10 mg total) by mouth in the morning. 90 tablet ctive metoprolol succinate XL (TOPROL XL) 50 mg 24 hr tablet Indications:Essential hypertensionTake 1 tablet (50 mg total) by mouth in the morning. 90 tablet ctive PARoxetine (PAXIL) 40 mg tablet Indications:Persistent depressive disorderTake 1 tablet (40 mg total) by mouth in the morning. 90 tablet ctive omeprazole (PriLOSEC) 20 mg capsule Indications:Chronic GERDTake 1 capsule (20 mg total) by mouth in the morning. 90 capsule ctive isosorbide mononitrate (IMDUR) 60 mg 24 hr tablet Take 1 tablet (60 mg total) by mouth daily.08/18/2022ctive Active Problems ProblemNoted DateDiagnosed DateObesity (BMI 30-39.9)1Essential vasrhnooasun67/18/5384Cekntvavapir57/18/2020Type 2 diabetes mellitus without complication, without long-term current use of zrtedsu7511/13/2020Persistent depressive ilsmycae59/18/2020Chronic GERD11/13/2020Right lower lobe pulmonary wxaxaz3511/13/2020 Overview (07/09/2021): 2013: 5 mm 2020: 8 mm Immunizations ImmunizationAdministration DatesNext DueCOVID-19, mRNA, LNP-S, PF, 100mcg/0.5mL Dose03/06/2021,02/06/2021Influenza (IM) Preservative Free08/05/2013,08/09/2012, 08/12/2011Influenza, Im Trivalent Werxlanzsceq49/18/2018,09/15/2017,10/16/2015 Influenza, Injectable, Uwxeaugajsda36/23/2019Influenza, Injectable, quadrivalent (PF)09/12/2021,08/26/2020Influenza, Imyqgwfrqaq82/01/2020,07/28/2011Zoster Vaccine Zktjzxoytpi27/01/2019,11/27/2018,09/11/2018,03/10/2018 Family History Medical HistoryRelationNameCommentsHeart diseaseBrother 1Heart diseaseBrother 2 No Known ProblemsFatherNo Known ProblemsMaternal GrandfatherNo Known Problems Maternal GrandmotherDiabetesMotherHeart diseaseMotherNo Known ProblemsPaternal GrandfatherNo Known ProblemsPaternal GrandmotherThyroid cancerSisterRelationName StatusCommentsBrother 1DeceasedBrother 2DeceasedFatherDeceasedMaternal GrandfatherDeceasedMaternal GrandmotherDeceasedMotherDeceasedPaternal GrandfatherDeceasedPaternal GrandmotherDeceasedSisterAlive Social History Tobacco UseTypesPacks/DayYears UsedDateSmoking Tobacco: UqqjgtLpglwwfrmp173988 - 1990Smokeless Tobacco: CurrentChew Tobacco Cessation:Ready to Q uit: Not Asked; Counseling Given: Not Answered Alcohol UseStandard Drinks/WeekCommentsYes0 (1 standard drink = 0.6 oz pure alcohol)PHQ-2AnswerDate RecordedTotal Ezafz5941ChildcareAnswerDate HgkinjeoKozcuxyjiQrdtooi15/15/2020EmploymentAnswerDate RecordedEmploymentUnknown 11/10/2020Purpose - LifeAnswerDate RecordedPurpose and direction in lifeUnknown 12/30/2020ex and Gender InformationValueDate RecordedSex Assigned at BirthNot on fileLegal AkqGmlr7307/02/2015 11:26 AM EDTGender IdentityNot on fileSexual OrientationNot on file Last Filed Vital Signs Vital SignReadingTime TakenCommentsBlood Sidllnnx575/8410/03/2022 9:05 AM EST Fxrek473010/03/2022 8:29 AM QIYSshvlkxkrlx65.9 ??C (98.5 ??F)07/13/2021 8:18 AM EDTRespiratory Efnz752812/03/2021 8:29 AM ESTOxygen Wlwgvkmhwe85%10/03/2022 8:29 AM ESTInhaled Oxygen Concentration--Pgetov288.3 kg (285 lb)10/03/2022 8:29 AM NDKSipbfm157.9 cm (6')10/03/2022 8:29 AM ESTBody Mass Index38.6510/03/2022 8:29 AM EST Plan of Treatment Health MaintenanceDue DateLast DoneCommentsDiabetic Ophthalmology Exam1957 Depression Njmwdvjwy49/03/1970Tobacco Wexvpbtuw94/03/1970Diabetic Foot Exam 1975DTaP,Tdap and Td Vaccines (1 - Tdap)1976Fall Risk Screening 2022dult BMI Luydacvsz59olonoscopy COVID-19 Vaccine (4 - 2025- season)511/, 03/06/2021, 02/06/2021Influenza Hxhcxjf31/12/2022, 09/12/2021, 08/27/2020, Additional history existsStatin Use: Sakzfckr56/24/296824/RSV ( or age 60+ yrs) (1 - 1-dose 75+ series)2032Zoster (Shingles) Vaccine Egiqgmsbs89/01/2019, 11/27/2018, 09/11/2018, Additional history exists Medical Devices Not on file Insurance Care Teams Team MemberRelationshipSpecialtyStart DateEnd Date Rachid Henning MD [facility] - [facility]
--- OUTSIDE RECORDS SUMMARY | 2025-10-03 09:56 | XMS_ITS | Encounter Summary ---
Author Organization [facility] Address [address] [place] [address] Care Team Providers Care Burlapper Name Role Phone Rachid Henning MD Primary Care Provider [phone] Rachid Henning MD Primary Care Provider [phone] Shaikh МАРИНА Acevedo Primary Care Provider [phone] Tammy Hardy NP Unavailable [phone] Rachid Henning MD Primary Care Provider [phone] Shaikh МАРИНА Acevedo Unavailable [phone] Encounter Details DateTypeDepartmentCare Team (Latest Contact Info)Vkilewvekxg37/23/2023Clinisync Result Encounter [facility] External Department Unsolicited Shaikh Acevedo MD [address] [place] [address] Social History Tobacco UseTypesPacks/DayYears UsedDateSmoking Tobacco: NeverSmokeless [...] a week 07/16/2024How often do you attend anabaptist or pentecostal services?Never07/16/2024o you belong to any clubs or organizations such as anabaptist groups, unions, fraternal or athletic groups, or school groups?No07/16/2024How often do you attend meetings of the clubs or organizations you belong to?Never07/16/2024re you , , , , never , or living with a partner?Bucacru3707/16/2024UDIT-CAnswerDate RecordedQ1: How often do you have a [...] and heating?Not very hard07/16/2024HQ-2AnswerDate RecordedPatient Health Questionnaire-2 Ufjyj461Finjordan [facility] [place] of Occupational Health - Occupational Stress QuestionnaireAnswerDate RecordedDo you feel stress - tense, restless, nervous, or anxious, or unable to sleep at night because yourmind is troubled all the time - these days?Only a hslvip9007/16/2024Exercise Vital Sign AnswerDate RecordedOn average, how many [...] Date RecordedSex Assigned at BirthNot on fileLegal DueKkjn9702/08/2023 7:19 PM EDT Gender IdentityNot on fileSexual OrientationNot on filedocumented as of this encounter Functional Status * AUDIT-C ScoreAnswerDate of RuqjrcgblkRaadhe847 5:31 PM Kathryn Generic * Q1: How [...] or more drinks on one occasion?AnswerDate of CsnikfkcqiAqcaooOvfgyi98/20/2024 5:31 PM Kathryn Generic * Over the past 2 weeks, how often have you been bothered by any of the following problems?QuestionAnswerDate of AssessmentAuthorLittle interest or pleasure in doing thingsNot at all05/13/2025 10:00 AM Yesika Marroquin MAFeeling down, depressed, or hopelessNot at all05/13/2025 10:00 AM EDT Yesika Monahan MAPatient Health Questionnaire-2 Tyewx364 10:00 AM Yesika Marroquin MA * QuestionAnswerDate [...] 10:00 AM Yesika Marroquin MAPatient Health Questionnaire-9 Oytsh949 10:00 AM Yesika Marroquin MA * How difficult have these problems made it for you to do your work, take care of things at home, or get along with other people?AnswerDate of Assessment AuthorNot difficult at all05/23/2024 10:29 AM Shaikh Iqbal MD documented as of this encounter Plan of Treatment Not on file documented as of this encounter Procedures Procedure NamePriorityDate/TimeAssociated DiagnosisCommentsXR CHEST 2V101/19/2023 1:56 AM EST documented in this encounter Results * XR CHEST 2V (11/18/2023 1:56 AM EST)Anatomical RegionLateralityModalityOther Specimen (Source)Anatomical Location / LateralityCollection Method / Volume Collection TimeReceived Time11/18/2023 1:56 AM EST Narrative 11/18/2023 1:59 AM EST The [facility] ?[address] ? [place] [address] ?XRay Report ? Signed ? Patient: NORI,FUNMI ? MR#: [id number] ?? : 1955 ?Acct:[id number] ?? Age/Sex: 67 / M ?ADM Date: 12/21/23 ?? Loc: LAB ? Attending Dr: Shaikh Kristina Diane ? Ordering Physician: Shaikh Roxi Acevedo ?? Date of Service: 11/16/23 ?? Procedure(s): XR chest 2V ?? Accession Number(s): [id number] ? cc: Shaikh Roxi Acevedo; Rachid Henning M.D. ? The [facility] ? [address] ? [place] [address] ? Patient Name: ?? FUNMI ??NORI ? MRN: [facility]:[id number] ? date: 1955 ?Sex: M ?? Assigned Patient Location: LAB ?? Current Patient Location: LAB ?? Accession/Order Number: [id number] ?? Exam Date: 11/16/2023 ??10:21 ?Report Date: 11/18/2023 ??01:56 ? At the request of: ?KRISTINA ? Procedure: ??XR chest 2V ? EXAMINATION: XR chest 2V ? HISTORY: acute bronchitis with wheezing J20.9 , cough, congestion ? COMPARISON: No relevant comparison available. ? FINDINGS: ?? LUNGS: Mild haziness and stranding within left midlung and a few small ?? opacities. ?? VASCULATURE: No increased pulmonary vasculature. ?? PLEURA: No pneumothorax, effusion, or pleural thickening. ?? CARDIAC: No cardiomegaly or cardiac silhouette abnormality. ?? MEDIASTINUM: No visible mass or adenopathy. ?? BONES: No fracture or visible bone lesion. ?? OTHER: Negative. ? XR/XR chest 2V ?? IMPRESSION: ? 1. Mild atelectasis or infiltrates within left midlung. Consider follow-up to ?? document clearing. ? Electronically authenticated by: DRE ??PATTI ?? Date: 11/18/2023 ??01:56 ? Dictated By: ?Dre Irvin M.D. ? Signed By: ?11/18/23 0159 ? DD/ ? TD/TT: ? 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 The [address] [address] Patient Name: FUNMI PAUL MRN: [id number] date: 1955 Sex: M Assigned Patient Location: LAB Current Patient Location: LAB Accession/Order Number: [id number] Exam Date: 11/16/2023 10:21 Report Date: 11/18/2023 [...] 01:56 Dictated By: Dre Irvin M.D. 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: Authorizing ProviderResult TypeResult StatusShaikh Janethwwad MDCLINISYNC IMAGING Final Result documented in this encounter Visit Diagnoses Not on filedocumented in this encounter Care Teams Team MemberRelationshipSpecialtyStart DateEnd Date Rachid Henning MD PCP - [facility]Reg[facility] Rachid Henning MD [facility] - [facility] Shaikh Acevedo MD [facility] Rachid Henning MD [facility]CP - [facility] Medicine07/23/24 Shaikh Acevedo MD [address] [place] [address] PCP - [employer]10/27/23 Tammy Hardy NP Nurse PractitionerBarnstable County Hospital Medicine07/01/24documented as of this encounter
--- OUTSIDE RECORDS SUMMARY | 2025-10-03 09:56 | XMS_ITS | Encounter Summary ---
Author Organization [facility] Address [address] [place] [address] Care Team Providers Care Urban Renewal Manager Name Role Phone Shaikh МАРИНА Acevedo Primary Care Provider [phone] Tammy Hardy NP Unavailable [phone] Rachid Henning MD Primary Care Provider [phone] Shaikh МАРИНА Acevedo Unavailable [phone] Encounter Details DateTypeDepartmentCare Team (Latest Contact Info)Oqaqzpvqsdf24/10/2024linisync Result Encounter [facility] External Department Unsolicited Shaikh Acevedo MD [address] [place] [address] Social History Tobacco UseTypesPacks/DayYears UsedDateSmoking Tobacco: FormerCigarettes0.52 [...] relatives?Twice a week07/16/2024How often do you attend religion or christianity services?Never07/16/2024o you belong to any clubs or organizations such as religion groups, unions, fraternal or athletic groups, or school groups?No 07/16/2024How often do you attend meetings of the clubs or organizations you belong to?Never07/16/2024re you , , , , never , or living with a partner?Wmwkzit1007/16/2024UDIT-CAnswerDate RecordedQ1: How often do you have a drink containing alcohol?4 or more times a week 07/16/2024Q2: How many drinks containing alcohol do you have on a typical day when you are drinking?3 or Q3: How often do you have six or more drinks on one occasion?Ubdyfh0707/16/2024Overall Financial Resource Strain (CARDIA)AnswerDate RecordedHow hard is it for you to pay for the very basics like food, housing, medical care, and heating?Not very hard07/16/2024HQ-2Answer Date RecordedPatient Health Questionnaire-2 Tknwb856Fingarfield [facility] of Occupational Health - Occupational Stress QuestionnaireAnswerDate RecordedDo you feel stress - tense, restless, nervous, or anxious, or unable to sleep at night because yourmind is troubled all the time - these days?Only a vxcjos9507/16/2024 Exercise Vital SignAnswerDate RecordedOn average, how many [...] were you homeless or living in a intermediate (including now)?No 07/16/2024Sex and Gender InformationValueDate RecordedSex Assigned at BirthNot on fileLegal JjdMkvf5402/08/2023 7:19 PM EDTGender IdentityNot on fileSexual OrientationNot on filedocumented as of this encounter Functional Status * AUDIT-C ScoreAnswerDate of HpmeigbfdeCmeaqu460 5:31 PM EDSasha Generic * Q1: How [...] or more drinks on one occasion?AnswerDate of LtpileznorLwmdnxAzhhkj12/20/2024 5:31 PM Kathryn Generic * Over the past 2 weeks, how often have you been bothered by any of the following problems?QuestionAnswerDate of AssessmentAuthorLittle interest or pleasure in doing thingsNot at all05/13/2025 10:00 AM Yesika Marroquin MAFeeling down, depressed, or hopelessNot at all05/13/2025 10:00 AM Yesika Flynn MAPatient Health Questionnaire-2 Bbzav677 10:00 AM Yesika Marroquin MA * QuestionAnswerDate of AssessmentAuthorTrouble falling or staying asleep, or sleeping too muchNot at all05/13/2025 10:00 AM Yesika Marroquin MA Feeling tired or having little energyNot at all05/13/2025 10:00 AM EDT Yesika Monahan MAPoor appetite or overeatingSeveral days05/13/2025 10:00 AM [...] 10:00 AM Yesika Marroquin MAPatient Health Questionnaire-9 Xzukt733 10:00 AM Yesika Marroquin MA * How difficult have these problems made it for you to do your work, take care of things at home, or get along with other people?AnswerDate of Assessment AuthorNot difficult at all05/23/2024 10:29 AM Shaikh Iqbal MD documented as of this encounter Plan of Treatment Not on file documented as of this encounter Procedures Procedure NamePriorityDate/TimeAssociated DiagnosisCommentsCT CHEST WO CON 03/06/2024 9:48 AM EDT documented in this encounter Results * CT CHEST WO CON (03/06/2024 9:48 AM EDT)Anatomical RegionLateralityModality OtherSpecimen (Source)Anatomical Location / LateralityCollection Method / VolumeCollection TimeReceived Time03/06/2024 9:48 AM EDT Narrative 03/06/2024 9:51 AM EDT [facility] ?[address] ? [place] [address] ? CT Scan Report ? Signed ? Patient: NORI,FUNMI ? MR#: [id number] ?? : 1955 ?Acct:[id number] ?? Age/Sex: 68 / M ?ADM Date: 04/10/24 ?? Loc: CT ? Attending Dr: Shaikh Kristina [place] ? Ordering Physician: Shaikh Roxi Acevedo ?? Date of Service: 03/06/24 ?? Procedure(s): CT chest wo con ?? Accession Number(s): [id number] ? cc: Shaikh Roxi Acevedo ? [facility] ? [address] ? [place] [address] ? Patient Name: ?? FUNMI ??NORI ? MRN: [facility]:[id number] ? date: 1955 ?Sex: M ?? Assigned Patient Location: CT ?? Current Patient Location: CT ?? Accession/Order Number: [id number] ?? Exam Date: 03/06/2024 ??08:46 ?Report Date: 03/06/2024 ??09:48 ? At the request of: ?KRISTINA ? Procedure: ??CT chest wo con ? EXAMINATION: CT chest wo con ? HISTORY: Solitary Pulmonary Nodule R91.1 ? COMPARISON: 01/11/2024 ? TECHNIQUE: Multi-planar CT images were created with IV contrast. Axial, ?? Coronal, and Sagittal images. Dose reduction techniques were achieved by using ? automated exposure control and/or adjustment of mA and/or kV according to ?? patient size and/or use of iterative reconstruction technique. ? FINDINGS: ?? LUNGS: Scattered subcentimeter calcified and noncalcified pulmonary nodules ?? with the largest noncalcified nodule irregular margins measuring 1.0 x 0.6 cm ?? axial image 62 just above the right hemidiaphragm. Additional calcified ?? nodules,the largest in the superior segment of the left lower lobe measures ?? 6.7 ?? mm and corresponds to the abnormality on plain x-ray likely atelectasis ?? PLEURA: No mass, effusion, or pneumothorax. ?? VASCULATURE: No abnormality. ?? LUIS: No mass or adenopathy. ?? MEDIASTINUM: No mass or adenopathy. ?? CARDIAC: No enlargement, pericardial thickening, or significant calcification. ?? AORTA: No aneurysm or dissection. ?? CHEST WALL: No mass or axillary adenopathy. ?? BONES: No bone lesion or fracture. ?? LIMITED ABDOMEN: No suspicious findings. Limited images of the upper abdomen. ?? OTHER: Negative. ? CT/CT chest wo con ?? IMPRESSION: ? 1 cm noncalcified right lower lobe pulmonary nodule. Consider PET/CT to ?? evaluate metabolic status ? 6.7 mm calcified left lung nodule corresponding to the plain film findings ? Electronically authenticated by: ELDON ??HAYLEE ?? Date: 03/06/2024 ??09:48 ? Dictated By: ?Eldon Leach M.D. ? Signed By: ?03/06/24950 ? DD/ 0948 ? TD/TT: ? Food Safety Coordinator: Procedure Note Radiology, Radiologist, MD - 03/06/2024 [place] [address] CT Scan Report Signed Patient: FUNMI PAULMR#: [id number] : 1955cct:[id number] Age/Sex: 68 / MADM Date: 03/06/24 Loc: CT Attending Dr: Shaikh Kristina Diane Ordering Physician: Shaikh Roxi Acevedo Date of Service: 03/06/24 Procedure(s): CT chest wo con Accession Number(s): [id number] cc: Shaikh Roxi Acevedo The [address] [address] Patient Name: FUNMI PAUL MRN: [id number] date: 1955 Sex: M Assigned Patient Location: CT Current Patient Location: CT Accession/Order Number: [id number] Exam Date: 03/06/2024 08:46 Report Date: 03/06/2024 [...] Leach M.D. Signed By:03/06/24950 DD/ 7 TD/TT: Food Safety Coordinator: Authorizing ProviderResult TypeResult StatusShaiantoinette Acevedo MDCLINISYNC IMAGING Final Result documented in this encounter Visit Diagnoses Not on filedocumented in this encounter Care Teams Team MemberRelationshipSpecialtyStart DateEnd Date Shaikh Acevedo MD PCP - GeneralInternal Medicine Rachid Henning MD PCP - GeneralFamily Medicine07/23/24 Shaikh Acevedo MD [address] [place] [address] PCP - [employer]10/27/23 Tammy Hardy NP Nurse PractitionerFamiPhoebe Putney Memorial Hospital07/01/24documented as of this encounter
--- NOTE | 2025-10-03 10:04 | MR_ITS ---
The [address] [address] Patient Name: FUNMI UJLIO MRN: [id number] date: 1955 Sex: M Assigned Patient Location: MRI Current Patient Location: MRI Accession/Order Number: [id number] Exam Date: 10/03/2025 10:20 Report Date: 10/03/2025 14:43 At the request of: PAWEL SORIA NP Procedure: MR lumbar spine wo con MRI lumbar spine performed without contrast INDICATION: Chronic low back pain getting worse COMPARISON: X-rays lumbar spine 08/03/2025 FINDINGS: Lumbar vertebral heights and disc space heights and alignment maintained. Minimal anterolisthesis L3 on L4 2 mm likely caused by facet arthropathy. Conus medullaris terminates normally at L1-L2. Paraspinal soft tissues are unremarkable. T12-L1: Mild facet arthropathy. No significant disease is canal neural from narrowing. L1-2: Mild to moderate facet arthropathy identified. No significant disease is canal neural from narrowing. L2-3: Desiccation with minimal endplate osteophytosis extending both foramina regions. Evidence of moderate severe facet arthropathy. Canal is patent. Mild neural foraminal narrowing. L3-4: 2 mm anterolisthesis likely caused by the severe facet arthropathy. There is a broad-based disc bulge noted. There is moderate canal and moderate bilateral neural from narrowing. L4-5: Disc desiccation with minimal endplate spurring extending both foramina zones. Moderate facet arthropathy. Minimal canal minimal foraminal narrowing. L5-S1: Moderate severe facet arthropathy. Minimal right foraminal zone bulge and disc osteophyte complex noted. There is moderate severe right moderate left facet arthropathy. Mild right neural foraminal narrowing. MR/MR lumbar spine wo con IMPRESSION: Multilevel predominantly posterior element degenerative changes greatest L3-L4 and less so L2-S1. There is associated with minimal 2 mm anterolisthesis of L3 and L4 causing moderate central canal and moderate neural foraminal narrowing at this level level. Impression dictated by: Memo Mitchell M.D. 10/03/2025 2:43 PM Dictation Location: [place] [address] Electronically authenticated by: [id number] Y Date: 10/03/2025 14:43
== END 2025-10-03 09:53 | disposition home or self-care (01) ==
LOC: MRI 09:52
PROVIDERS: PCP Nurse Practitioner; Visit Provider Nurse Practitioner
DX: M54.50 Low back pain, unspecified (principal); G89.29 Other chronic pain; M51.369 Other intervertebral disc degeneration, lumbar region without mention of lumbar back pain or lower extremity pain
CPT/HCPCS: 72148

== ENCOUNTER 2025-11-03 13:24 | Outpatient (OUT) | payer MEDICARE, SELFPAY ==
--- OUTSIDE RECORDS SUMMARY | 2025-10-29 06:27 | XMS_ITS | Continuity of Care Document ---
Author Organization [facility] Address [address] [place] [address] Phone Care Team Providers Care Laboratory Courier Name Role Phone Lela Solorzano [employer] Primary Care Provider Lela Solorzano [employer] Attending Provider Adam Lucero DO Attending Provider [phone] Care Teams Patient Care Team Team Status: Active Member Role/Relationship Status Dates Lela Solorzano [employer] Primary Care Provider Active Visit Care Team Team Status: Inactive Member Role/Relationship Status Dates Lela Solorzano , [employer] Primary Care Provider Active Start: August 13, 2025 End: August 13, 2025Lela Solorzano [employer]-CAttending ProviderActiveStart: August 13, 2025 End: August 13, 2025 Visit Care Team Team Status: Inactive Member Role/Relationship Status Dates Adam Lucero DO Attending Provider Active Start: September 03, 2025 End: September 03, 2025Lela Solorzano [employer]-CPrimary Care ProviderActiveStart: September 03, 2025 End: September 03, 2025 Visit Care Team Team Status: Inactive Member Role/Relationship Status Dates Lela Jesu Solorzano , [employer] Primary Care Provider Active Start: September 25, 2025 End: September 25, 2025Lela Solorzano [employer]-CAttending ProviderActiveStart: September 25, 2025 End: September 25, 2025 Patient Care Team Team Status: Inactive Member Role/Relationship Status Dates Lela Solorzano , [employer] Primary Care Provider Active Start: October 29, 2025 End: October 29, 2025Lela Solorzano NP-CAttending ProviderActiveStart: October 29, 2025 End: October 29, 2025 Chief Complaint and Reason for Visit Chief Complaint Admit Date Established Patient August 13, 2025 9:29am 1 year F.U *with ch* September 03, 2025 9 :13am 6W September 25, 2025 8 :56am 1M October 29, 2025 9 :53am Reason for Visit Admit Date CAD in [place] artery August 13 9:29am Chronic lower back pain August 13, 2025 9:29am Essential hypertension August 13, 2 025 9:29am GERD without esophagitis August 13, 2025 9:29am Morbid obesity due to excess calories Se ptember 2024 9:29am ZENON (obstructive sleep apnea) August 13, 2025 9:29am Type 2 diabetes mellitus wit hout complication, without long-term current August 13, 2025 9:29am Cognitive impairment September 03, 2025 9 :13am CAD in [place] artery September 25, 2025 8:56am Chronic lower back pain September 25 8:56am Essential hypertension September 25 8:56am Morbid obesity due to excess calories Oc tober 2024 8:56am ZENON (obstructive sleep apnea) September 252024 8:56am Type 2 diabetes mellitus wit hout complication, without long-term current us September 25, 2025 8:56am CAD in [place] artery October 29, 2025 9:53am Essential hypertension October 29 9:53am Facet arthropathy, lumbar October 29, 2025 9:53am Foraminal stenosis of lumbar region Dece 2024 9:53am Morbid obesity due to excess calories De cem2024 9:53am ZENON (obstructive sleep apnea) October 292024 9:53am Type 2 diabetes mellitus wit hout complication, without long-term current us October 29, 2025 9:53am Reason for Referral Type Reason(s) Provider Provider Contact Information P rovider Address Start Date Arthropathy of lumbar facet joint Foraminal stenosis of lumbar region Chronic low back painChronic low back pain M54.50 - Low back pain, unspecified,G89.29 - Other chronic painM47.816 - Spondylosis without myelopathy or radiculopathy, lumbar region,M48.061 - Spinal stenosis, lumbar region without neurogenic claudication,M54.50 - Low back pain, unspecified,G89.29 - Other chronic painBellevue Pain ManagementWork Phone: [phone] [facility] [address] [facility] [address]Mcsxwtfz 2024M54.50 - Low back pain, unspecified,G89.29 - Other chronic painBellevue Hosp RehabilitationWork Phone: [phone] [facility] [address] [address] Allergies, Adverse Reactions, Alerts Allergen Type Severity Reaction Last Updated Verified Status oxycodone Allergy Unknown hives September 03, 2025 8:20am Yes Active Social History Smoking Status Unknown if ever smoked Observation Status Observation Response Date of Response Legal Sex Male (finding) Sex Assigned At [facility] 1955 Family History Relationship Condition Age at Onset Recorded Date/T annemarie father Unknown motherDeceasedUnknownDiabetes mellitusUnknownHeart diseaseUnknownHistory of strokeUnknown Problems Active Problems Problem Diagnosis/Recorded Date Onset Date Stat us Foraminal stenosis of lumbar region October 29, 2025 6:33am Unknown Active Encounter for subsequent [facility] (AWV) in Medicare patient August 10, 2025 6:45pm Unknown Active Major depression, recurrent August 10, 2025 6:45p m Unknown Active ZENON (obstructive sleep apnea) August 10, 2025 6:4 6pm Unknown Active Calcified granuloma of lung August 10, 2025 6:43p m Unknown Active Prostate cancer screening August 10, 2025 6:47pm Unknown Active CAD in [place] artery August 10, 2025 6:44pm Unkno wn Active Chronic lower back pain August 13, 2025 9:11am Un known Active Pulmonary fibrosis, unspecified August 10, 2025 6 :47pm Unknown Active Erectile dysfunction August 10, 2025 6:44pm Unkno wn Active Acquired buried penis August 10, 2025 6:43pm Unkn own Active Former tobacco use August 10, 2025 6:45pm Unknown Active Umbilical hernia August 10, 2025 6:48pm Unknown Active Mixed hyperlipidemia August 10, 2025 6:45pm Unkno wn Active Mild cognitive impairment August 10, 2025 6:46pm Unknown Active Hypogonadism in male August 10, 2025 6:45pm Unkno wn Active Essential hypertension August 10, 2025 6:43pm Unk nown Active Morbid obesity due to excess calories August 10, 2025 6:46pm Unknown Active Type 2 diabetes mellitus wit hout complication, without long-term current use of insulin August 10, 2025 6:48pm Unknown Active GERD without esophagitis August 10, 2025 6:44pm U nknown Active Calcified lymph nodes August 10, 2025 6:44pm Unkn own Active Facet arthropathy, lumbar October 29, 2025 6:33am Un known Active COPD (chronic obstructive pu lmonary disease) August 10, 2025 6:47pm Unknown Active Cognitive impairment September 03, 2025 8:23am Unknown Active Inactive/Resolved Problems Problem Diagnosis/Recorded Date Onset Date Stat us History of tonsillectomy August 10, 2025 6:43pm U nknown Resolved Medications Medication Status Dose Units Route Directions Qty Days Refills S tart Date Stop Date End Date Reason(s) Instructions Adherence Lisinopril-Hydrochlorothiazide 20-12.5 mg tablet Active 1 TAB PO Daily 90 1Sept2024 8:11pmPrimary hypertension Essential (primary) hypertensionUnknownMetformin 850 mg kuwzczQtyqvt324ASUXDbjjh fgozv2249Kqwhfwxzb 18th, 2025 8:11pmType 2 diabetes mellitus without complicationsUnknownAmlodipine 10 mg mfvmrpMpxmhs33WGPEBstcj492Oetorryhy 18th, 2025 8:12pmPrimary hypertension Essential (primary) hypertensionUnknownAtorvastatin 40 mg jalxbgLdxrjf79XQEV DailyJuly 2024 11:00pmUnknownAnastrozole 1 mg ittplyPxuatcbefqmd8AJHWNfpuc June 24, 2025 11:00pmSeptember 2024 9:00amLisinopril-Hydrochlorothiazide 20-12.5 mg htngmjVlsekvabeecz7AQSIMJvclaFugr 2024 11:00pmSeptember 18th, 2025 8:13pmMetoprolol Succinate 100 mg tablet extended release 24 hrActiveMGPO June 24, 2025 11:00pmUnknownMetformin 850 mg btfftmPborgdajluam855UUUJSrgtg June 24, 2025 11:00pmSeptember 2024 6:48pmFexofenadine 180 mg tablet Vivcfr876MLRNYzrmgMfdy 29th, 2025 11:00pmUnknownSpironolactone 25 mg tablet Fnaoclzbtocr44UPZUQxiuxPedh 29th, 2025 11:00pmSeptember 2024 6:49pm Isosorbide Mononitrate 60 mg tablet extended release 24 hrActiveMGPOJune 24, 2025 11:00pmUnknownAmlodipine 10 mg ukibopEusdwjfwauer32AHGTHhusqGqxg 29th, 2025 11:00pmSept2024 8:13pmOmeprazole 20 mg capsule,delayed release(DR/EC)Qdwkca66MXLPOtbeeBofs 29th, 2025 11:00pmUnknownAspirin 81 mg isqmkkPahdqc23ZFXNGmttpTijk 29th, 2025 11:00pmUnknownAlbuterol Sulfate 90 mcg/actuation HFA aerosol mqxnivpUjmtfg1LWVMXVRSPVGDMPvzoj 6 hoursJu2024 11:00pmUnknownParoxetine Hcl 40 mg upcsomLdhcee84PPBUAmecPozz 29th, 2025 11:00pmUnknownSemaglutide (Ozempic) 1 mg/dose (4 mg/3 mL) pen injector Tngrcsyjcwkt7QZDJFUPDczfgg weekJuly 2024 11:00pmSept2024 9:01amCpap (Continuous Positive Airway Pressure) unitActive0.Jlskx13Kthz 2024 11:00pmNew mask and supplies x 1 year, Dx ZENON Patient would like the ramp turned offMetformin 850 mg wccqcbXibhncnpfcyf140NZOJCfzuv dailypt2024 11:00pmSept2024 8:13pmSpironolactone 25 mg ukaohqVxjudg46.5MGPO Dailypt2024 11:00pmUnknown Relevant Diagnostic Tests and/or Laboratory Data Laboratory Results Test Collection Date/Time Result Date/Time Result Interpretation Reference Range Result Comment Performing Site Bedside Hemoglobin A1c August 13, 2025 5:12am Sep tember 2024 8:56am 6.9 % Vital Signs Vital Reading Result Reference Range Collection Date/Time Height 72 [in_i] August 13, 2025 8:54daLhhsjy596.11 kgSept2024 8:45amBody Qqacnzykwxt12.5 [degF]97.6-99.0Sept2024 8:45amHeart Rate83 /min 60-100Sept2024 8:45amRespiratory rate24 /txa56-02Fjzlrczqy 17th, 2025 8:45amOxygen saturation by Pulse galvfvis93 %95-100Sept2024 8:45amBP Wnuxsfdu237 mm[Hg]100-140Sept2024 8:45amBP Wgdkplvpe24 mm[Hg]60-100Sept2024 8:45amBMI (Body Mass Index)43.7 kg/e8Gzifcxyrh2024 8:68mfYittkm104.77 kgOctober 2024 8:20amHeart Rate83 /lru53-953 September 03, 2025 8:20amOxygen saturation by Pulse vahohdzm58 %95-100October 2024 8:20amBP Drsmssib526 mm[Hg]100-140October 2024 8:20amBP Diastolic 106 mm[Hg]60-100October 2024 8:65khOpaled29 [in_i]September 25, 2025 8:04am Radmje565.73 kgOctober 2024 8:04amBody Chfuplrrqxq38.8 [degF]97.6-99.0 September 25, 2025 8:04amHeart Rate94 /tpb22-084Zbfvnts 2024 8:04am Respiratory rate20 /kee81-05Ihnfpma 30th, 2025 8:04amOxygen saturation by Pulse dsdjgqvy07 %95-100October 2024 8:04amBP Fgttlibn368 mm[Hg]100-140October 2024 8:04amBP Ffdfgoied70 mm[Hg]60-100October 2024 8:04amBMI (Body Mass Index)43.9 kg/w5Noenmww 2024 8:53qsUqxoov21 [in_i]October 29, 2025 10:26icHzacle994.38 kgDeceer 2024 10:26amBody Uvfvohdumtd91.8 [degF] 97.6-99.0[facility]ce[facility] 2024 10:26amHeart Rate74 /cur31-310Jpkdoerp 3rd, 2025 10:26amRespiratory rate20 /lmg36-60Onwhcrft 3rd, 2025 10:26amOxygen saturation by Pulse kiscmsrx21 %95-100[facility] 20[facility] 10:26amBP Pbakznya131 mm[Hg] 100-140[facility] 2024 11:08amBP Efzxswkrz58 mm[Hg]60-100December 2024 11:08amBMI (Body Mass Index)44.4 kg/j5Ghvioffg 2024 10:26am Advance Directives Advance Directive Response Recorded Date/ Time Advance Directives No June 25 12:16pm Insurance Providers Guarantor Jayson Burnett [facility] Address [address] [address] Info.Home Phone: Coverage Status Update:2025 Payer Group Member ID Coverage Type Subscriber Relationship to Subscriber Effective Date Expiration Date Aena [facility] PF [id number] A [facility] Id: [id number] [address] [address] Home Phone: Self Encounters Encounter Location(s) Arrival/Admit Date Discharge/Departure Date Discharge/Departure Disposition Provider(s) Departed Physician/ Provider Office Visit -[facility] Family Medicine [place] August 13, 2025 9:29am August 13, 2025 10:15am Discharged to home care or self care (routine discharge) JUELE Sanders Departed Physician/ Provider Office Visit -[facility] Neurology [place] September 03, 2025 9:13am September 03, 2025 9:35am Discharged to home care or self care (routine discharge) Adonay Tidwell DO Departed Physician/ Provider Office Visit -[facility] Family Medicine [place] September 25, 2025 8:56am September 25, 2025 9:39am Discharged to home care or self care (routine discharge) JULEE Sanders Departed Physician/ Provider Office Visit -[facility] October 29, 2025 9:53am October 29, 2025 11:09am Discharged to home care or self care (routine discharge) JULEE Sanders Recent Diagnosis Onset Date Admit Date CAD in cata[place] artery Unknown July 282024 9:29am Chronic lower back pain Unknown e r 2024 9:29am Essential hypertension Unknown August 13, 2025 9:29am GERD without esophagitis Unknown Julemb er 2024 9:29am Morbid obesity due to excess calories Unknown August 13, 2025 9:29am ZENON (obstructive sleep apnea) Unknown Se ptember 2024 9:29am Type 2 diabetes mellitus wit hout complication, without long-term current us Unknown August 13, 2025 9:29 am Cognitive impairment Unknown August 9:13am CAD in [place] artery Unknown August 8:56am Chronic lower back pain Unknown September 25, 2025 8:56am Essential hypertension Unknown August 292024 8:56am Morbid obesity due to excess calories Unknown September 25, 2025 8:56am EZNON (obstructive sleep apnea) Unknown Oc tober 2024 8:56am Type 2 diabetes mellitus wit hout complication, without long-term current us Unknown September 25, 2025 8:56am CAD in c[place] artery Unknown October 9:53am Essential hypertension Unknown October 29, 2025 9:53am Facet arthropathy, lumbar Unknown Decemb er 2024 9:53am Foraminal stenosis of lumbar region Unknown October 29, 2025 9:53am Morbid obesity due to excess calories Unknown October 29, 2025 9:53am ZENON (obstructive sleep apnea) Unknown De cember 2024 9:53am Type 2 diabetes mellitus wit hout complication, without long-term current us Unknown October 29, 2025 9:53am Assessments Diagnosis Onset Date Resolution Status Admit Date CAD in cata[place]ba artery acuteSeptember 2024 9:29amChronic lower back painacuteSeptember 2024 9:29amEssential hypertensionacuteSeptember 2024 9:29amGERD without esophagitisacuteSeptember 2024 9:29amMorbid obesity due to excess calories acuteSeptember 2024 9:29amOSA (obstructive sleep apnea)acuteSeptember 2024 9:29amType 2 diabetes mellitus without complication, without long- term current usacuteSeptember 2024 9:29amCognitive impairmentacuteOctober 2024 9:13amCAD in cata[place] arteryacuteOctober 2024 8:56amChronic lower back painacuteOctober 2024 8:56amEssential hypertensionacuteOctober 2024 8:56amMorbid obesity due to excess caloriesacuteOctober 2024 8:56am ZENON (obstructive sleep apnea)acuteOctober 2024 8:56amType 2 diabetes mellitus without complication, without long-term current usacuteOctober 2024 8:56amCAD in [place] arteryacuteDecember 2024 9:53amEssential hypertensionacuteDecember 2024 9:53amFacet arthropathy, lumbaracuteDecember 2024 9:53amForaminal stenosis of lumbar regionacuteDecember 2024 9:53amMorbid obesity due to excess caloriesacuteDecember 2024 9:53amOSA (obstructive sleep apnea)acuteDecember 2024 9:53amType 2 diabetes mellitus without complication, without long-term current usacuteDformerly [facility] 2024 9:53am Plan of Treatment Author Lela Solorzano [facility] 2024 6:34amCheck blood sugars daily, notify the office if [...] sugary drinks, as well as alcohol consumption. see MRI report recommend pain mgmt see MRI report recommend pain mgmt Author Adam Lucero [facility] 8:34amIt is my impression that the patient has subjective complaints of memory loss. A factor that may be influencing this is the patient's right more recent history of relatively lower oxygenation status. He has seen pulmonology for this. Rony cognitive assessment was 26/30 in 2023. MRI of the brain does [...] plan, and return instructions Author Lela Solorzano [facility] HospitalAuthoredSeptember 2024 9:14amCheck blood sugars daily, notify the office if [...] morning: Company that supplies your machine, tubing/filters etc:[facility] Doctor that manages your ZENON:april order xray and PT fu in 6 weeks Author Lela Kellysongrafael [facility]AuthoredOctober 2024 8[facility] daily, notify the office if [...] low back xrays, these were completed at [facility], I did not receive any results, we will call to get them will order MRI lumbar spine: no metal, no claustrophobia, no recent on back, +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, no NSAIDS d/t cardiac issues Future Tests Future scheduled test information is unavailable Pending Tests Test Name Ordered Date Scheduled Date XR lumbar spine 2-3V* August 13, 2025 9:12a m XR orbitsOctober 2024 8:33amMR lumbar spine wo conOctober 2024 8:33am Future Visits Future appointment information is unavailable Future Procedures Future procedure information is unavailable Future Medications Future medication information is unavailable Patient Instructions Instruction Admit Date Low back pain in adults August 13, 2025 9:29am Low back pain in adults October 29 9:53am Hospital Discharge Instructions Ambulatory Orders* Referral to Pain Management Time Frame: 10/29/25, Location: None Selected
--- OUTSIDE RECORDS SUMMARY | 2025-11-03 13:31 | XMS_ITS | CCD ---
Author Organization [facility] Team Providers Care Ruching Machine Operator Name Role Phone SADIA, MARIANELA Admitting Unavailable [...] ANTONY, MS. CHIOMA BADILLO Primary Care P hysician Rachid Barillas MD Unavailable Antony COMPUTER CONSOLE OPERATOR, Chioma Unavailable Rachid Barillas MD Primary Care Provider Antony COMPUTER CONSOLE OPERATOR, Chioma Unavailable [phone] Shaikh Acevedo MD Unavailable ANTONY CHIOMA Primary Care UnavailTania Lawrence Admitting Unavailable Tania Mariscal Attending Unavailable Tania Mariscal Admitting Unavailable Tania Mariscal Attending Unavailable ANTONY [facility] Care UnavailFunmi Soler Attending Unavailable RACHID BARILLAS Referring Unavailable Funmi RESEDNIZ Attending Unavailable Tania Mariscal Attending [facility] UnavailTania Lawrence Attending Unavailable HARDY, [facility] Primary Care Unavailabl e Tania Mariscal Attending Unavailable HARDY, [facility] Care Unavailabl e Tania Mariscal Attending Unavailable HARDY, [facility] Primary Care Unavailabl e HARDY, CHIOMA Referring Unavailabl e ERWIN TIPTON Attending Unavailable RONDA GAO Attending Unavailable LELA SOLORZANO Attending Unavailable LELA SOLORZANO Attending Unavailable SHAIKH ACEVEDO Attending Unavailable TANIA LUCERO Attending Unavailable CHIOMA HARDY Attending Unavailabl e DESHAWN TERRELL Attending Unavailable TANIA LUCERO Referring Unavailable TANIA LUCERO Attending Unavailable ANTONY, CHIOMA Attending Unavailabl e NON STAFF Primary Care Provider Unavailabl e Perri Og DO Attending Provider Jeanine COMPUTER CONSOLE OPERATOR-CLela Primary Care Provider Jeanine COMPUTER CONSOLE OPERATOR-CLela Attending Provider Tania Lucero DO Attending Provider Rachid Barillas MD Primary Care Provider Juvencio PARISH, Rachid Primary Care Provider Shaikh Acevedo MD Primary Care Provider [phone] Rachid Barillas MD Primary Care Provider Shaikh Acevedo MD Unavailable ANTONY, [facility] Unavailabl e Tania Mariscal Admitting Unavailable Tania Mariscal Attending Unavailable Tania Mariscal Attending Un[facility] UnavailTania Lawrence Admitting Unavailable Tania Mariscal Attending Unavailable [facility] Unavailabl e Allergies Allergy ClassificationReported Allergen(s)Allergy TypeDate of OnsetReaction(s) Facility (1 source)oxyCODONEDrug Fxasncy08-90-2653Bbd [facility] Rep[facility] (20 sources)oxyCODONE; Translations: [oxycodone]Drug Zfsifsn89-49-0293Kbwpwis (finding), Weal (disorder), [facility] Medications Current Medications MedicationDrug Class(es)DatesSig (Normalized)Sig (Original)0.25 MG, 0.5 MG Dose 3 ML semaglutide 0.68 MG/ML Pen Injector [Ozempic] (4 sources)Start: 04-03-5041olfyzr 0.5 mg by subcutaneous injection every week Ozempic 2 mg/3 mL (0.25 mg or 0.5 mg dose) subcutaneous solution 0.5 mg, SubCutaneous, qWeek Start Date: 08/28/24 Status: Ordered Medication Dispense Status: Completed Total Allowed Fills: 1 Fills Dispensed: 0Start: 08-28-2024 inject 0.5 mg by subcutaneous injection every weekOzempic 2 mg/3 mL (0.25 mg or 0.5 mg dose) subcutaneous solution 0.5 mg, SubCutaneous, qWeek Start Date: 08/28/24 Status: Ordered Repeat number: 1Start: 94-89-4292hncxaz 0.5 mg by subcutaneous injection every weekOzempic 2 mg/3 mL (0.25 mg or 0.5 mg dose) subcutaneous solution 0.5 mg, SubCutaneous, qWeek Start Date: 08/28/24 Status: [id number] 200 actuat albuterol 0.09 mg/actuat metered dose inhaler (20 sources)beta2-Adrenergic AgonistStart: 82-01-8651Ranmh: 11-16-2023 End: 33-32-6204eaoh 2 puff(s) by inhalation every four hours for wheezing albuterol HFA (Ventolin HFA) 90 mcg/act inhaler Indications: Suspected chronic obstructive pulmonary disease based on initial evaluation ([facility]) Inhale 2 puffs every 4 (four) hours if needed for wheezing 18 g 11/07/2024 ActiveAlbuterol (Eqv-Ventolin HFA) 90 mcg/inh inhalation aerosol (4 sources)Start: 49-66-0690wibi 2 puff(s) by inhalation every four hours Albuterol (Eqv-Ventolin HFA) 90 mcg/inh inhalation aerosol 2 puff(s), Inhalation, q4hr Start Date: 08/28/24 Status: Ordered Medication Dispense Status: Completed Total Allowed Fills: 1 Fills Dispensed: 0Start: 31-24-3002dnzy 2 puff(s) by inhalation every four hoursAlbuterol (Eqv-Ventolin HFA) 90 mcg/inh inhalation aerosol 2 puff(s), Inhalation, q4hr Start Date: 08/28/24 Status: Ordered Repeat number: 1Start: 02-78-9267iyhv 2 puff(s) by inhalation every four hoursAlbuterol (Eqv-Ventolin HFA) 90 mcg/inh inhalation aerosol 2 puff(s), Inhalation, q4hr Start Date: 08/28/24 Status: Orderedaspirin 81 mg oral tablet (20 sources)Platelet Aggregation Inhibitor, Nonsteroidal Anti-inflammatory Drug Start: 89-56-4054irhj 1 tablet by mouth once dailyStart: 03-20-2024 End: 55-68-9953aknwuuj 81 mg Chew Tab 81 mg = 1 tab(s), Chewed, Daily, Refills(s) 0 Start Date: 03/20/24 Status: Ordered Medication Dispense Status: Completed Total Allowed Fills: 1 Fills Dispensed: 0atorvastatin 40 mg oral tablet (20 sources)HMG-CoA Reductase InhibitorStart: 05-20-2024 End: 19-75-7217dseu 1 tablet by mouth once dailycarbamide peroxide 65 mg/ml otic solution (2 sources)Start: 07-23-2024 End: 44-87-4842hzttbgyyg peroxide (Debrox) 6.5 % otic solution Indications: Cerumen debris on tympanic membrane ofboth ears Administer 3-5 drops into affected ear(s) in the morning and 3-5 drops before bedtime. Doall this for 4 days. 15 mL 07/23/2024 07/27/2024 ActiveCpap (Continuous Positive Airway Pressure) unit (3 sources)Start: 88-32-7133Nzmn (Continuous Positive Airway Pressure) unit Active 0 .Route 1 0 June 25, 2025 12:00am New mask and supplies x 1 year, Dx ZENON Patient would like the ramp turned offStart: 09-76-9732Nwit (Continuous Positive Airway Pressure) unit Active 0 .Route 1 June 25, 2025 12:00am New mask and supplies x 1 year, Dx ZENON Patient would like the ramp turned off fexofenadine hydrochloride 180 mg oral tablet (20 sources)Histamine-1 Receptor AntagonistStart: 22-60-7037nbet 1 tablet by mouth once dailyStart: 08-28-2024 End: 98-86-2794ysni 1 tablet by mouth once dailyFexofenadine 180 mg tablet Active 180 MG PO Daily June 25, 2025 12:00am Complies with drug therapytake 1 tablet by mouth in the morningfexofenadine ([facility]) 180 MG tablet Take 1 tablet by mouth in the morning. ActivehydroCHLOROthiazide 12.5 mg / lisinopril 20 mg oral tablet (20 sources)Thiazide Diuretic, Angiotensin Converting Enzyme InhibitorStart: 06-25-2025 End: 35-74-9224jmbf 1 tablet by mouth once dailyStart: 03-20-2024 End: 63-30-6973bohd 1 tablet by mouth once dailylisinopril-hydroCHLOROthiazide 20-12.5 MG tablet Indications: Essential (primary) hypertension Take1 tablet by mouth Daily 90 tablet 1 11/07/2024 ActiveStart: 11-60-2046dzlv 1 tablet by mouth twice dailyhydrochlorothiazide-lisinopril 12.5 mg-20 mg Tab 1 tab(s), Oral, BID, Refill(s) 0 Start Date: 03/20/24 Status: Ordered Repeat number: 124 hr isosorbide mononitrate 60 mg extended release oral tablet (20 sources)Nitrate VasodilatorStart: 53-86-7588wasx 1 tablet by mouth every twenty-four hoursStart: 03-20-2024 End: 69-45-5563lcyr 1 tablet by mouth once daily in the morningisosorbide mononitrate 60 mg ER Tab 60 mg = 1 tab(s), Oral, qAM, Refills(s) 0 Start Date: 03/20/24 Status: Ordered Medication Dispense Status: Completed Total Allowed Fills: 1 Fills Dispensed: 024 hr metoprolol succinate 100 mg extended release oral tablet (20 sources)beta-Adrenergic BlockerStart: 07-22-6231kozq 1 tablet by mouth once dailymetoprolol 100 mg ER Tab 100 mg = 1 tab(s), Oral, Daily, Refills(s) 0 Start Date: 03/20/24 Status: Ordered Medication Dispense Status: Completed Total Allowed Fills: 1 Fills Dispensed: 0Start: 08-31-2023 End: 27-35-5945raeg 1 tablet by mouth every twenty-four hoursomeprazole 20 mg delayed release oral capsule (20 sources)Proton Pump InhibitorStart: 03-20-2024 End: 79-10-2013vbhp 1 capsule by mouth once dailyOzempic, 1 MG/DOSE, 4 MG/3ML solution pen-injector (1 source)Start: 37-87-0392gjybaj 1 mg by subcutaneous injection every week Ozempic, 1 MG/DOSE, 4 MG/3ML solution pen-injector Indications: Type 2 diabetes mellitus without complication, without long-term current use of insulin (CMS/HCC) INJECT 1mg SUBCUTANEOUSLY (UNDER THE SKIN) EVERY WEEK 3 mL 12 11/07/2024 ActivePARoxetine hydrochloride 40 mg oral tablet (20 sources)Serotonin Reuptake InhibitorStart: 03-20-2024 End: 80-40-6330iuef 1 tablet by mouth oncesemaglutide (Ozempic, 1 MG/DOSE,) 4 MG/3ML solution pen-injector (4 sources)Start: 62-67-0347diibzj 1 mg by subcutaneous injection every week semaglutide (Ozempic, 1 MG/DOSE,) 4 MG/3ML solution pen-injector Inject 1 mg under the skin 1 (one)time per week 11/07/2024 ActiveSemaglutide,0.25 or 0.5MG/DOS, (Ozempic, 0.25 or 0.5 MG/DOSE,) 2 MG/3ML solution pen-injector (10 sources)Start: 08-22-2024 End: 29-47-0511Rkfmdjctnkr,0.25 or 0.5MG/DOS, (Ozempic, 0.25 or 0.5 MG/DOSE,) 2 MG/3ML solution pen-injector Indications: Type 2 diabetes mellitus without complication, without long-term current use of insulin (CMS/HCC) Inject 0.5 mg under the skin 1 (one) time per week 3 mL 2 08/22/2024 11/07/2024 Discontinued (Dose adjustment)Start: 31-52-6713Msfhbmowwgi,0.25 or 0.5MG/DOS, (Ozempic, 0.25 or 0.5 MG/DOSE,) 2 MG/3ML solution pen-injector Indications: Type 2 diabetes mellitus without complication, without long-term current use of insulin (CMS/ HCC) Inject 0.5 mg under the skin 1 (one) time per week 3 mL 2 08/22/2024 Active Start: 08-22-2024 End: 82-89-1744Qtmlagvwrny,0.25 or 0.5MG/DOS, (Ozempic, 0.25 or 0.5 MG/DOSE,) 2 MG/3ML solution pen-injector Indications: Type 2 diabetes mellitus without complication, without long-term current use of insulin (CMS/HCC) Inject 0.5 mg under the skin 1 (one) time per week 3 mL 2 08/22/2024 09/21/2024 Active testosterone undecanoate 237 mg oral capsule (8 sources)AndrogenStart: 12-18-2024 End: 48-68-5586Tjsyczpeljfu Undecanoate (Jatenzo) 237 MG capsule Take 237 mg by mouth 12/18/2024 05/13/2025 Discontinued (Therapy completed) Completed/Discontinued Medications MedicationDrug Class(es)DatesSig (Normalized)Sig (Original)amLODIPine 10 mg oral tablet (20 sources)Dihydropyridine Calcium Channel BlockerStart: 03-20-2024 End: 76-40-6391olqs 1 tablet by mouth once dailyAmlodipine 10 mg tablet Discontinued 10 MG PO Daily June 25, 2025 12:00am August 14, 2025 9:13pm anastrozole 1 mg oral tablet (10 sources)Aromatase InhibitorStart: 06-25-2025 End: 48-45-6978qpbz 1 tablet by mouth once dailyAnastrozole 1 mg tablet Discontinued 1 MG PO Daily June 25, 2025 12:00am August 13, 2025 10:00am Start: 12-18-2024 End: 69-09-1629dgtx 1 tablet by mouth every weekanastrozole 1 mg Tab 1 mg = 1 tab(s), Oral, qWeek, X 90 day(s), # 13 tab(s), Refills(s) 1, Pharmacy: [id number], 182, cm, 12/18/24 11:48:00 EST, Height/Length Dosing, 139, kg, 12/18/24 11:48:00 EST, Weight Dosing Start Date: 12/18/24 Stop Date: 06/16/25 Status: Ordered Quantity: 13.0 Unit: tab(s) Repeat number: 2metFORMIN hydrochloride 850 mg oral tablet (20 sources)BiguanideStart: 06-25-2025 End: 15-50-9073ptev 1 tablet by mouth once dailyMetformin 850 mg tablet Discontinued 850 MG PO Daily June 25, 2025 12:00am August 10, 2025 7:48pm Start: 03-20-2024 End: 26-73-2957sfit 1 tablet by mouth twice dailyMetformin 850 mg tablet Discontinued 850 MG PO Twice daily August 10, 2025 12:00am August 14, 2025 9:13pmStart: 03-20-2024 End: 39-60-2079vsdb 1 tablet by mouth in the morningmetFORMIN (Glucophage) 850 MG tablet Indications: Type 2 diabetes mellitus without complication, without long-term current use of insulin ([facility]) Take 1 tablet (850 mg) by mouth in the morning and 1 tablet (850 mg) in the evening. Take with meals. 180 tablet 02/10/2025 ActiveOzempic, 0.25 or 0.5 MG/DOSE, 2 MG/3ML solution pen-injector (9 sources)Start: 05-23-2024 End: 39-02-4179Anirxss, 0.25 or 0.5 MG/DOSE, 2 MG/3ML solution pen-injector Indications: Type 2 diabetes mellitus without complication, without long-term current use of insulin (CMS/HCC) INJECT 0.25mg SUBCUTANEOUSLY EVERY WEEK for FOUR weeks; then INJECT 0.5mc SUBCUTANEOUSLY EVERY WEEK 3 mL 05/23/2024 08/21/2024 Discontinued (Reorder)Start: 55-81-4026Ouxxtlk, 0.25 or 0.5 MG/DOSE, 2 MG/3ML solution pen-injector Indications: Type 2 diabetes mellitus without complication, without long-term current use of insulin (CMS/HCC) INJECT 0.25mg SUBCUTANEOUSLY EVERY WEEK for FOUR weeks; then INJECT 0.5mc SUBCUTANEOUSLY EVERY WEEK 3 mL 05/23/2024 Active1 mg dose 1.5 ml semaglutide 1.34 mg/ml pen injector (3 sources)Start: 11-07-2024 End: 78-68-6557tcmkmm 1 mg by subcutaneous injection every weeksemaglutide (Ozempic) 2 MG/1.5ML solution pen-injector Indications: Type 2 diabetes mellitus without complication, without long-term current use of insulin (CMS/HCC) Inject 1 mg under the skin 1 (one) time per week 2 each 11/07/2024 11/07/2024 DiscontinuedStart: 53-54-1510adhkcs 1 mg by subcutaneous injection every week semaglutide (Ozempic) 2 MG/1.5ML solution pen-injector Indications: Type 2 diabetes mellitus without complication, without long-term current use of insulin (CMS/HCC) Inject 1 mg under the skin 1 (one) time per week 2 each 11/07/2024 ActiveSemaglutide (4 sources)Start: 06-25-2025 End: 55-51-7039owrouc 1 mg by subcutaneous injection every weekSemaglutide (Ozempic) 1 mg/dose (4 mg/3 mL) pen injector Discontinued 1 MG SUBCUT every week June 25, 2025 12:00am August 13, 2025 10:01amStart: 84-78-1509gaqdmz 1 mg by subcutaneous injection every weekSemaglutide (Ozempic) 1 mg/dose (4 mg/3 mL) pen injector Active 1 MG SUBCUT every week June 25, 2025 12:00am Complies with drug therapyspironolactone 25 mg oral tablet (11 sources)Aldosterone AntagonistStart: 06-25-2025 End: 91-83-3182qbew 1 tablet by mouth once dailySpironolactone 25 mg tablet Discontinued 25 MG PO Daily June 25, 2025 12:00am August 10, 2025 7:49pm Start: 03-14-2025 End: 03-14-2026 Problems Active Problems Problem ClassificationProblemDateDocumented DateEpisodic/ChronicAlcohol-related disorders (4 sources)History of alcohol abuse; Translations: [Alcohol abuse, in remission] 81-37-2534UibvpfrVenyjrl obstructive pulmonary disease and bronchiectasis (20 sources)Suspected respiratory disease; Translations: [Chronic obstructive pulmonary disease, unspecified]Onset: 832599-71-4131CodxuwrLpfrbltz atherosclerosis and other heart disease (20 sources)Atherosclerotic heart disease of [place] coronary artery without angina pectoris; Translations: [Coronary arteriosclerosis]Onset: 01-12-2022 ChronicDeficiency and other anemia (6 sources)Yixktz07-27-8731VuabjdseSlpqhfuz mellitus with complications (10 sources)Type 2 diabetes mellitus; Translations: [Type 2 diabetes mellitus with other specified complication]Onset: 131621-17-1091DaunytcZbbpkalu mellitus without complication (20 sources)Diabetes mellitus; Translations: [Type 2 diabetes mellitus]Onset: 11-13-2020 Resolved: 767282-90-6154BflkbggYpauzkyws of lipid metabolism (20 sources)Dyslipidemia; Translations: [Hyperlipidemia]Onset: 11-13-2020 Resolved: 606319-61-5209DgiclaxCgdxqtkzqq disorders (20 sources)Gastroesophageal reflux disease; Translations: [Gastro-esophageal reflux disease without esophagitis]Onset: 162754-82-8623ElkyyfyEgnnjjubj hypertension (20 sources)Benign essential hypertension; Translations: [Hypertensive disorder] Onset: 05-13-2013 Resolved: 101714-41-9508QuzyzbfYvwh disorders (20 sources)Depressive disorder; Translations: [Dysthymic disorder]Onset: 11-13-2020 Resolved: 809016-93-3757KwbjvsvHcojf diseases of veins and lymphatics (15 sources)Calcified lymph nodes; Translations: [Other specified noninfective disorders of lymphatic vessels and lymph nodes]Onset: ChronicOther endocrine disorders (1 source)Testicular hypofunction; Translations: [Testicular hypofunction]Onset: 18-30-0636IsptnhvXuylp endocrine disorders (18 sources)Male hypogonadism; Translations: [Testicular hypofunction]Onset: 002635-28-3476ExjsyfpLopcf endocrine disorders (1 source)Testicular hypofunctionOnset: 12-77-8807ZpzkcjlKdsgf hereditary and degenerative nervous system conditions (20 sources)Impaired cognition; Translations: [Mild cognitive impairment, so stated]Onset: 815677-58-6460JpydalxLwlin lower respiratory disease (15 sources)Fibrosis of lung; Translations: [Pulmonary fibrosis, unspecified] Onset: 914315-72-8358HjcbkpbEqzbb lower respiratory disease (2 sources)Shortness of breath; Translations: [Shortness of breath]Onset: 37-90-0132EaestroxWkilw lower respiratory disease (2 sources)Snoring; Translations: [Snoring]89-91-9123PaviwnzcAbbhw male genital disorders (20 sources)Male erectile dysfunction, unspecified; Translations: [Erectile dysfunction]Onset: 79-02-0933EanppknHiuyc male genital disorders (20 sources)Acquired buried penis; 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]Onset: 91-44-0149EbfbmwnMgxbb male genital disorders (1 source)Acquired buried penisOnset: 77-13-8765CtxkohjDqdwe nervous system disorders (6 sources)Impaired cognition; Translations: [Other symptoms and signs involving cognitive functions and awareness]05-22-9074RjqtwuedZmlec nutritional; endocrine; and metabolic disorders (8 sources)Morbid obesity; Translations: [Morbid (severe) obesity due to excess calories]Onset: 04-91-4599RwjydhtPmwph nutritional; endocrine; and metabolic disorders (20 sources)Body mass index 40+ - severely obese; Translations: [Body mass index (BMI) 40.0-44.9, adult]Onset: 802422-99-3743TkgbvqlEgblr nutritional; endocrine; and metabolic disorders (6 sources)Obese class NBY96-49-6796HoogtlnEalbp nutritional; endocrine; and metabolic disorders (14 sources)Obesity caused by energy imbalance; Translations: [Morbid (severe) obesity due to excess calories]Onset: 385065-08-8371JqbcshnOvqik nutritional; endocrine; and metabolic disorders (2 sources)Obesity; Translations: [Obesity, unspecified]63-40-0942Wqxtwhy Residual codes; unclassified (20 sources)Obstructive sleep apnea syndrome; Translations: [Obstructive sleep apnea (adult) (pediatric)]Onset: 654595-34-0722QrvuojoUaqkgghg codes; unclassified (2 sources)Hypersomnia; Translations: [Hypersomnia, unspecified]06-25-2025 ChronicResidual codes; unclassified (5 sources)Reduced libido; Translations: [Decreased libido]Onset: 08-28-2024 EpisodicResidual codes; unclassified (2 sources)Localized edema; Translations: [Localized edema]Onset: 03-14-2025 EpisodicSpondylosis; intervertebral disc disorders; other back problems (10 sources)Chronic low back pain; Translations: [Chronic low back pain]Episodic Unclassified (7 sources)Patient encounter hgjtet50-65-1202Djdndhnizamn (4 sources)Calcified granuloma of avgm53-57-2176Ohmgyzvdoyxy (11 sources)Patient on antidepressant monitoring planOnset: 429737-27-9713 Unclassified (4 sources)M54.50 - Low back pain, unspecified,G89.29 - Other chronic pain Past or Other Problems Problem ClassificationProblemDateDocumented DateEpisodic/ChronicAbdominal hernia (15 sources)Umbilical hernia; Translations: [Umbilical hernia without obstruction or gangrene]Onset: 430002-01-9548DuaotxtpIgcdm bronchitis (20 sources)Acute bronchitis co-occurrent with wheeze; Translations: [Acute bronchitis, unspecified]Onset: 11-16-2023 Resolved: 395693-21-5756JoyxokxtUgwffwip mellitus without complication (5 sources)Prediabetes; Translations: [Impaired fasting glycemia]Onset: 730752-41-1393HnykctwuFxwc disorders (20 sources)Mood disordersOnset: 05-23-2024 Resolved: 104037-61-6327Gpsbycvkclc chest pain (8 sources)Chest pain; Translations: [Chest pain, unspecified]Onset: 03-11-2025 37-19-3311JkwikzwiPxzvv and unspecified benign neoplasm (20 sources)Pigmented skin lesion ; Translations: [Melanocytic nevi, unspecified]Onset: 01-25-2024 Resolved: 485143-38-3753MxcwpwuqNdozv circulatory disease (4 sources)Suspected respiratory disease; Translations: [Other specified symptoms and signs involving the circulatory and respiratory systems]Onset: 402781-28-7716VzbirfpfCccms ear and sense organ disorders (20 sources)Excessive cerumen in ear canal ; Translations: [Impacted cerumen, bilateral]Onset: 477950-91-6556KngerihoAkhhn lower respiratory disease (5 sources)Other forms of dyspnea; Translations: [OTHER FORMS OF DYSPNEA]Onset: 80-33-5558XzraaqelWgusd lower respiratory disease (20 sources)Solitary nodule of lung; Translations: [Solitary pulmonary nodule] Onset: 445809-55-0173TvqggsqaIberm lower respiratory disease (15 sources)Calcified granuloma of lung; Translations: [Other disorders of lung] Onset: 426479-07-6955ChfufpqhXsvbv screening for suspected conditions (not mental disorders or infectious disease) (17 sources)Screening for malignant neoplasm of colon done; Translations: [Encounter for screening for malignant neoplasm of colon]Onset: 04-16-2024 EpisodicOtitis media and related conditions (20 sources)Acute suppurative otitis media without spontaneous rupture of ear drum; Translations: [Acute suppurative otitis media without spontaneous rupture of ear drum, bilateral]Onset: 11-16-2023 Resolved: 614739-73-4547TxwsaxstAaljifrn codes; unclassified (20 sources)Sleep apnea; Translations: [Sleep apnea, unspecified]Onset: 04-16-2012 Resolved: 151791-46-2032GmxubiiVsgnkdun codes; unclassified (4 sources)Amnesia; Translations: [Other amnesia]71-53-7437DioriipxQjuirwynp and history of mental health and substance abuse codes (15 sources)Ex-tobacco user; Translations: [Personal history of nicotine dependence]Onset: 720653-48-9097Ltxbeexo Results Test NameValueInterpretationReference RangeFacilityTestost Totalon 09-26-2025 Testoster Lju688 ng/oQTfk955-923NcevcvKettering Health SpringfieldComment on above: Result Comment: Adult male reference interval is based on a population of healthy nonobese males (BMI <30) between 19 and 39 years old. chelsie [place].al. JCEM 2017,102;9467-0948. PMID: [id number]. Performed at: [facility] [id number] [place], [place] [id number] PhD Isabel Learyformed By: #### [id number] #### Jorge [facility] [address] [place], [place] [address]Govlghszpk Visit Summaryon 96-43-8484Dshtbfmlve Visit Summary Ambulatory Visit Summary FUNMI JULIO :1955 Visit Date:09/24/2025 Ambulatory Visit Instructions Your Diagnosis Hypogonadism male ED (erectile dysfunction) Acquired buried penis Your Care Team Attending Physician - Davey PARISH, Tania Angel Primary Care Physician - ANTONY, MS. CHIOMA BADILLO This Is Your Medications List albuterol (Albuterol (Eqv-Ventolin HFA) 90 mcg/inh inhalation [...] of umbilical hernia, Tonsillectomy and adenoidectomy. Medications What How Much When Instructions Unchanged albuterol (Albuterol (Eqv-Ventolin HFA) 90 mcg/ inh inhalation aerosol) 2 Puffs Inhalation Every 4 hours Unchanged amlodipine (amLODIPine 10 mg Tab) 1 Tablets By Mouth Every day Unchanged aspirin (aspirin 81 mg Chew Tab) 1 Tablets Chewed Every day Unchanged atorvastatin (atorvastatin 40 mg Tab) 1 Tablets By Mouth Every day Unchanged fexofenadine (fexofenadine 180 mg Tab) 0 Refill(s) Unchanged hydrochlorothiazide-lisinopril (hydrochlorothiazide-lisinopril 12.5 mg-20 mg Tab) 1 Tablets By Mouth Every day Unchanged isosorbide mononitrate (isosorbide mononitrate 60 mg ER Tab) 1 Tablets By Mouth Once a day (in the morning) Unchanged metformin (metformin 850 mg Tab) 1 Tablets By Mouth 2 times a day Unchanged metoprolol (metoprolol 100 mg ER Tab) 1 Tablets By Mouth Every day Unchanged omeprazole (omeprazole 20 mg Cap-DR) 1 Capsules By Mouth Every day Unchanged paroxetine (Paxil 40 mg Tab) 1 Tablets By Mouth Every day Unchanged semaglutide (Ozempic 2 mg/ 3 mL (0.25 mg or 0.5 mg dose) subcutaneous solution) 0.5 Milligram Subcutaneous Every week Allergies oxyCODONE (SOB - Shortness of breath, [...] you for choosing us for your care. Patient Portal You may access all of your results and other medical record information on our secure patient portal. If you are not signed up for this yet, please contact [employer] at [phone] to get signed up today. Language Information Language assistance services are available as needed. NormalKettering Health SpringfieldHematocriton 09-24-2025 Hematocrit (Bld) [Volume fraction]42.4 %Jroyct31.7-49.0Kettering Health SpringfieldComment on above:Performed By: #### [id number] #### Jorge [facility] [address] [place] [address]IsU2x HPLC (Bld) [Mass fraction]Ordered By: Lela Solorzano on 89-54-4736PbZ0z (Bld) [Mass fraction]6.9 %[facility] HospitalHbA1c (Bld) [Mass fraction]on 58-93-7912Rmzpiegtikybmq and review of laboratory resultsAbMackinac Straits Hospital HealthcareLaboratory - Hematology and Cell countson 49-26-3373TgC2l (Bld) [Mass fraction]7.7 %[facility]36on 34-12-403255Ejtpbhihs echo result from 04/04/2025: and labs from 04/02/2025: MD Karine Funes MA His echocardiogram and blood testing were okay. Continue same medications. Follow-up as planned unless there is need to see me before that. Patient informed. He verbalized understanding.Memorial Health SystemCA ECHO DOPPLER COMPLETEon 56-87-6727[place] [address] Cardiology Report Signed Patient: FUNMI JULIO MR#: [id number] : 1955 Acct:[id number] Age/Sex: 69 / M ADM Date: 04/04/25 Loc: CARD Attending Dr: RONDA GAO Ordering Physician: RONDA GAO Date of Service: 04/04/25 Procedure(s): CA echo doppler complete Accession Number(s): [id number] cc: Lela Solorzano COMPUTER CONSOLE OPERATOR; RONDA GAO Patient Name Site Name FUNMI JULIO [facility] Account No Medical Record Number Age Sex Date Time [id number] TBH:[id number] 69 M 04/04/2025 09:02 At the Request [...] Area (VTI): 4.92 cm2, 4.92 cm2 Deceleration [place]: Pressure Half-Time: Peak Velocity(Antegrade Flow): 1.51 m/s [...] ml, 67.75 ml Di (more content not included)...TBHRadiology, Radiologist, MD - 04/04/2025 [place] [address] Cardiology Report Signed Patient: FUNMI JULIO MR#: [id number] : 1955 Acct:[id number] Age/Sex: 69 / M ADM Date: 04/04/25 Loc: CARD Attending Dr: RONDA GAO Ordering Physician: RONDA GAO Date of Service: 04/04/25 Procedure(s): CA echo doppler complete Accession Number(s): [id number] cc: Lela Solorzano COMPUTER CONSOLE OPERATOR; RONDA GAO Patient Name Site Name FUNMI JULIO [facility] Account No Medical Record Number Age Sex Date Time [id number] [facility]:[id number] 69 M 04/04/2025 09:02 At the Request [...] Area (VTI): 4.92 cm2, 4.92 cm2 Deceleration [place]: Pressure Half-Time: Peak Velocity(Antegrade Flow): 1.51 m/s [...] M.D. Signed By: 04/04/251813 DD/ 11 TD/TT: Laborer Wharf: [facility] HospitalRadiology Study observation (narrative)[facility]cy HospitalCA ECHO DOPPLER COMPLETEOrdered By: Radiologist Radiology on 10-49-0917HZTYChildren's Mercy Hospital Work Phone: aLL BASIC METABOLIC PANELon 52-79-0173Vcskp gap [Moles/Vol]12 mmol/LNOMS HealthcareCalcium [Mass/Vol]9.1 mg/dL8.5 - 10.1 mg/dL NOM HealthcareChloride [Moles/Vol]98 mmol/L98 - 107 mmol/LNOMS HealthcareCO2 [Moles/Vol]30 mmol/L21.0 - 32.0 mmol/LNOMS HealthcareCreatinine [Mass/Vol]0.97 mg/dL0.70 - 1.30 mg/dLNOME HealthcareGFR/1.73 sq M.predicted CKD-EPI (S/P/Bld) [Vol rate/Area]>60>=60 mL/min/1.73m 2NOMS HealthcareGlucose [Mass/Vol]145 mg/dL High74 - 106 mg/dLNOME HealthcareInterpretation and review of laboratory results AbnormalNOME HealthcarePotassium [Moles/Vol]4 mmol/L3.5 - 5.1 mmol/LNOMS HealthcareSodium [Moles/Vol]136 mmol/L136 - 145 mmol/LNOMS HealthcareTBH EGFR- NON AF CITIZEN OF [place]>60>=60 mL/min/1.73m 2NOMS HealthcareUrea nitrogen [Mass/Vol]8 mg/dL7.0 - 18.0 mg/dLNOME HealthcareUrea nitrogen/Creatinine [Mass ratio]8.2 mg/mgNOME HealthcareALL PRO BNPon 99-61-3651MC PRO B TYPE NATRIURETIC PEPT24 pg/mLNINF - 900.0 pg/mLNOMS HealthcareCT CHEST WO CONon 74-60-88[address] [address] [address] Scan Report Signed Patient: FUNMI JULIO MR#: [id number] : 1955 Acct:[id number] Age/Sex: 69 / M ADM Date: 04/02/25 Loc: CT Attending Dr: Fracisco Morrison D.O. Ordering Physician: Fracisco Morrison D.O. Date of Service: 04/02/25 Procedure(s): CT chest wo con Accession Number(s): [id number] cc: Lela Solorzano NP [address] [address] Patient Name: FUNMI JULIO MRN: [facility]:[id number] date: 1955 Sex: M Assigned Patient Location: CT Current Patient Location: CT Accession/Order Number: [id number] Exam Date: 04/02/2025 09:52 Report Date: 04/02/2025 [...] Jr., D.O. 04/02/2025 9:55 AM Dictation Location: [place] [address] Electronically authenticated by: [id number] Y Date: 04/02/2025 09:55 Dictated By: John Sneed M.D. Signed By: 04/02/2557 DD/ 4 TD/TT: Laborer Wharf:TBHRadiology, Radiologist, - 04/02/2025 [place] [address] CT Scan Report Signed Patient: FUNMI JULIO MR#: [id number] : 1955 Acct:[id number] Age/Sex: 69 / M ADM Date: 04/02/25 Loc: CT Attending Dr: Fracisco Morrison D.O. Ordering Physician: Fracisco Morrison D.O. Date of Service: 04/02/25 Procedure(s): CT chest wo con Accession Number(s): [id number] cc: Lela Solorzano NP [place] [address] Patient Name: FUNMI JULIO MRN: [facility]:[id number] date: 1955 Sex: M Assigned Patient Location: CT Current Patient Location: CT Accession/Order Number: [id number] Exam Date: 04/02/2025 09:52 Report Date: 04/02/2025 [...] scarring. Impression dictated by: John Sneed Jr., D.OHumera 04/02/2025 9:55 AM Dictation Location: [place] [address] Electronically authenticated by: [id number] Y Date: 04/02/2025 09:55 Dictated By: John Sneed M.D. Signed By: 04/02/25 0957 DD/ 0955 TD/TT: Laborer Wharf: [facility] HOSPITALTeresa HealthcareRadiology Study observation (narrative)[facility] HealthcareCT CHEST WO CONOrdered By: Radiologist Radiology on 68-56-0307NLYP Healthcare Work Phone: no Panel Informationon 71-47-7274VKJGBZTATYWZM HealthcareAmbulatory Visit Summaryon 28-49-7579Guknajbzwg Visit Summary Ambulatory Visit Summary FUNMI JULIO [...] 8:30 AM EDT Where: [facility] [address] You Need to Schedule the Following Appointments [...] 1 Tablets Chewed Every day Contact prescribing physicianif questions or concerns Unchanged atorvastatin (atorvastatin 40 [...] us for your ca (more content not included)...[facility] HospitalUrology Office/Clinic Noteon 35-98-9796Cissmcc Office/Clinic NoteUrology Office/Clinic Note Chief Complaint 3 month with [...] 1. Hypogonadism male (E29.1: Testicular hypofunction) Testosterone (200-329) 09/03/24 - 242 09/10/24 - 220 03/12/25 - 348 Other labs 09/10/24 - Estrogen 98, LH 10.2, Prolactin 10.9 03/12/25 - hgb 14.5, hct 43.6 Prescribed Jatenzo 237mg bid and Anastrozole 1mg 1x/wk at prior OV. Pt states that Jatenzo was >$1000. Pt never started. Pt states he purchased Nugenix which was around $80. Testosterone level didincrease mildly. As he is tolerating this well, [...] PDE5i. Advised pt that his only options wouldbe ICI or NAVI. Pt states he did not look into these treatment options since last visit. Has noticedslight improvement with ED since starting Nugenix. Declines [...] Nov 2022. Pt states he just keeps ga ining weight. -DM control, cont following w/ PCP -Heart healthy diet, weight loss -Would need referral to tertiary center for buried penis repair 4. Screening PSA (prostate specific antigen) (Z12.5: Encounter for screening for malignant neoplasmof prostate) PSA 03/12/25 - 1.5 UA today negative for blood or infection. IPSS 2 (3) Not taking any BPH meds. No bothersome urinarycomplaints. -Can cont prostate cancer screening through primary [...] with BMI of 40.0-44.9, adult Obstructive sleep manager medical (more content not included)...NormalKettering Health SpringfieldComment on above:Result Comment: Electronically Signed By: Tania Mariscal MD\.br\Date and Time Signed: 03/19/25 10:57EDT\.br\Electronically Co-Signed By: Aditi Mora\.br\Date and Time Co-Signed: 03/19/25 10:49 EDT\.br\Electronically Co-Signed By: Aditi Mora\.br\Date and Time Co- Signed: 03/19/25 10:55 EDTOffice Visiton 23-67-1830Puufdx-up [id number] Funmi Julio 1955 M Date Provider Department Center 03/14/2025 RONDA MÉNDEZ EVIE Borrego [facility] Family History Problem Relation Age of Onset Diabetes Mother Hypertension Brother Heart attack Other Family Status - Relation Status Age at Mother Father Sister Alive Brother Other Level of Service:[address] [place] OFFICE/OUTPATIENT ESTABLISHED MOD MDM [address] [facility] [facility] HospitalTestost Totalon 37-63-8490Mpyhmtrnjlel [Mass/Vol]348 ng/dLInvalid Interpretation Qcqs977-180PdymjfKettering Health Springfield Comment on above:Result Comment: Adult male reference interval is based on a population of healthy nonobese males (BMI <30) between 19 and 39 years old. Veronica et.al. JCEM 2017,102;0419-2265. PMID: 50102441. Performed at: [facility] [address] [place], [place] [id number] PhD Isabel GodwinPerformed By: #### [id number] #### Jorge [facility] [address] [place] [address] [place] [address]ZVA CBC WITH AUTO DIFFon 55-85-3908LAHLBRXMG ABSOLUTE AUTO0.1 NOM HealthcareBasophils/100 WBC (Bld)0.6 %0.2 - 2.0 %[facility] Eosinophils/100 WBC (Bld)2.5 %0.9 - 7.0 %[facility] HealthcareErythrocyte distribution width (RBC) [Ratio]14.1 %11.0 - 15.0 %NOM HealthcareHematocrit (Bld) [Volume fraction]43.6 %42.0 - 54.0 %[facility] HospitalHemoglobin (Bld) [Mass/Vol]14.5 g/dL 14.0 - 18.0 g/dLChildren's Mercy HospitalIMMATURE GRANULOCYTES ABS AUTO0.05HighNOAudrain Medical CenterImmature granulocytes/100 WBC (Bld)0.5 %0.0 - 0.5 %[facility] Interpretation and review of laboratory resultsAbnormalNOAudrain Medical Center LYMPHOCYTES ABSOLUTE AUTO3.6NOAudrain Medical CenterLymphocytes/100 WBC (Bld)34.5 %20.5 - 60.0 %[facility] Health CenterH (RBC) [Entitic mass]29.1 pg25.9 - 34.0 pgNOSt. Louis Behavioral Medicine InstituteHC (RBC) [Mass/Vol]33.3 g/dL29.9 - 35.2 g/dLChildren's Mercy HospitalMCV (RBC) [Entitic vol]87.4 fL80.0 - 94.0 fLMOAB REGIONAL HOSPITAL HealthcareMONOCYTES ABSOLUTE AUTO0.7NOMS HealthcareMonocytes/100 WBC (Bld)6.6 %1.7 - 12.0 %[facility] HospitalNEUTROPHILS ABSOLUTE AUTO5.8NOMS HealthcareNeutrophils/100 WBC (Bld)55.3 %43.0 - 75.0 %[facility] Mercy HospitalPlatelet mean volume (Bld) [Entitic vol]8.7 fLLow9.5 - 13.5 fLNOMS [facility]tering Health SpringfieldTBH EO #0.3NOMS [facility] SpringfieldTB JIW311GLFM [facility] SpringfieldTB RBC4.99NOMS [facility] SpringfieldTB WBC10.4NOMS HealthcareCLINISYNCNOMS HealthcareCHEMISTRYOrdered By: SYSTEM SYSTEM on 60-27-0549Kaihlvrz specific Ag [Mass/Vol]1.5 ng/mLNormal0.1 - 3.5 ng/mLRemisol ChemComment on above:Interpretive Data: The concentration of PSA determined by different manufacturers can vary due to differences in assay methods and reagent specificity. Values obtained from different assay methods cannot be used interchangeably. The methodology used for this result was chemiluminescence using [employer]'s Access Hybritech PSA reagent.PSA Total on 51-82-3272Sbgfgomr specific Ag [Mass/Vol]1.5 ng/mLNormal0.1-3.5Fisher [facility] HospitalComment on above:Result Comment: The concentration of PSA determined by different manufacturers can vary due to differences in assay methods and reagent specificity. Values obtained from different assay methods cannot be used interchangeably. The methodology used for this result was chemiluminescence using [place] [employer]'s Access Hybritech PSA reagent.Performed By: #### [id number] #### Jorge [facility] [address] [place], [place] [address]Cgnhekpnmy Visit Summaryon 48-30-9828Drtartfsqu Visit Summary Ambulatory Visit Summary FUNMI JULIO [...] AM EDT With: Where: [facility] [address] [place] [address]- Monday 10:00 AM EDT With: Davey PARISH, Tania Angel Where: [facility] [address] [place] [address]- You Need to Schedule the Following Appointments [...] Duration: 90 Days Refills: 1 Pickup at [facility] New testosterone (Jatenzo 237 mg oral capsule) 1 Capsules By Mouth 2 times a day Refills: 11 Pickupat [facility] Unchanged albuterol (Albuterol (Eqv-Ventolin HFA) 90 mcg/ inh inhalation aerosol) 2 Puffs Inhalation Every 4 hours Contact prescribing physician if questions or concerns Unchanged amlodipine (amLODIPine 10 mg Tab) 1 Tablets By Mouth Every day Contact prescribing physician if questions or concerns Unchanged aspirin (aspirin 81 mg Chew Tab) 1 Tablets Chewed Every day Contact prescribing physicianif questions or concerns Unchanged atorvastatin (atorvastatin 40 [...] physician if questions or concerns Pharmacy Information [facility]: [address] [place], [place] [id number] [phone] Allergies oxyCODONE (SOB - Shortness of breath, Hives) Problems Ongoing - Any problem that you are currently receiving treatment for. Acquired buried penis A (more content not included)...[facility] HospitalUrology Office/Clinic Noteon 64-09-3114Hgtjcen Office/Clinic NoteUrology Office/Clinic Note Chief Complaint testosterone levels HPI [...] Estrogen 98, LH 10.2, Prolactin 10.9 Testosterone (264-836) 09/03/24 - 242 09/10/24 - 220 Discussed [...] Diabetes Dyslipidemia ED (erectile (more content not included)...[facility] Comment on above:Result Comment: Electronically Signed By: Tania Mariscal MD\.br\Date and Time Signed: 12/18/24 12:10EST\.br\Electronically Co-Signed By: Eileen Moody\.br\Date and Time Co-Signed: 12/18/24 12:05 ESTALL LUTEINIZING HORMONEon 98-64-2803ZTJNGBUNDOI HORMONE(LH)10.2AbnormalNOMS HealthcareALL TESTOSTERONEon 37-53-8079Vhsenptgwarf [Mass/Vol]220 ng/dLAbnormal 264 - 916 ng/dLNOMS HealthcareComment on above:Adult male reference interval is based on a population of healthy nonobese males (BMI <30) between 19 and 39 years old. Veronica, et.al. JCEM 2017,102;2404-3425. PMID: 36154727. No Panel Informationon 84-10-8410Eytcdaiehwcvyb and review of laboratory results AbnormalNOMS HealthcareCLINISYNCNOMS HealthcareTBH ESTROGENon 09-15-2024 ESTROGENS, TOTAL98 pg/mL56 - 213 pg/mLNOMS HealthcareComment on above: Prepubertal <40 Performed at: - [address] [id number] Chocolate Finisher: Wilber Reina MD, Phone: [phone] TBH PROLACTINon 95-37-0396VDFQZCNKD86.9 ng/mL3.6 - 25.2 ng/mLNOMS Healthcare Comment on above:Performed at: - [address] [id number] Chocolate Finisher: Tato Hall PhD, Phone: [phone] ALL TESTOSTERONEon 33-75-0270Hmtxnqsgesccgu and review of laboratory results AbnormalNOMS HealthcareTestosterone [Mass/Vol]242 ng/sTSjmaasmx328 - 916 ng/dL NOMS HealthcareComment on above:Adult male reference interval is based on a population of healthy nonobese males (BMI <30) between 19 and 39 years old. Veronica et.al. JCEM 2017,102;0204-4412. PMID: 23843479. Performed at: - [facility] [id number] Chocolate Finisher: Tato Hall PhD, Phone: [phone] [facility] HealthcareAmbulatory Visit Summaryon 05-07-7883Kwbjnqvjko Visit SummaryAmbulatory Visit Summary FUNMI JULIO :1955 Visit Date:08/28/2024 [...] PARISH, Tania Angel Where: [facility] [address] [place] [address]- You Need to Schedule the Following Appointments Follow Up with Davey PARISH, Tania Angel, URL, URO When: Where: [address] [place] [phone] Medications What How Much When Instructions Unchanged albuterol (Albuterol (Eqv-Ventolin HFA) 90 mcg/ inh inhalation aerosol) 2 Puffs Inhalation Every 4 hours Contact prescribing physician if questions or concerns Unchanged amlodipine (amLODIPine 10 mg Tab) 1 Tablets By Mouth Every day Contact prescribing physician if questions or concerns Unchanged aspirin (aspirin 81 mg Chew Tab) 1 Tablets Chewed Every day Contact prescribing physicianif questions or concerns Unchanged atorvastatin (atorvastatin 40 [...] What are the cau (more content not included)...[facility] Urology Office/Clinic Noteon 74-53-7065Flleyir Office/Clinic NoteUrology Office/Clinic Note Chief Complaint New patient acquired [...] testosterone (7-11 AM). Plans to go to [facility]. -If low, will confirm with repeat T, LH, prolactin, estradiol -If prolactin is elevated, will obtain repeat and if still elevated, obtain brain and pituitary MRIto check for prolactinoma and refer to endocrinology [...] antigen) (Z12.5: Encounter for screening for malignant neoplasmof prostate) PSA 12/30/20 - 1.21 07/12/22 - 1.20 PCP checks PSA which is low. Risks of elevat (more content not included)... [facility] HospitalComment on above:Result Comment: Electronically Signed By: Davey PARISH, Tania Angel\.silvio\Date and Time Signed: 08/28/24 11:36EDTMRI HEAD/BRAIN WO/W CONTRon 82-30-2044[address] [address] Magnetic Resonance Report Signed Patient: FUNMI JULIO MR#: [id number] : 1955 Acct:[id number] Age/Sex: 68 / M ADM Date: 07/15/24 Loc: LAB Attending Dr: Tania Lucero D.O. Ordering Physician: Tania Lucero D.O. Date of Service: 07/15/24 Procedure(s): MR head/brain wo/w con Accession Number(s): [id number] cc: Shaikh Roxi Acevedo; Tania Lucero D.O. [place] [address] Patient Name: FUNMI JULIO MRN: [facility]:[id number] date: 1955 Sex: M Assigned Patient Location: LAB Current Patient Location: LAB Accession/Order Number: [id number] Exam Date: 07/15/2024 09:01 Report Date: 07/15/2024 [...] M.D. Signed By: 07/15/241836 DD/ 34 TD/TT: Laborer Wharf:MAREKadiology, Radiologist, - 07/15/2024 [place] [address] Magnetic Resonance Report Signed Patient: FUNMI JULIO MR#: [id number] : 1955 Acct:[id number] Age/Sex: 68 / M ADM Date: 07/15/24 Loc: LAB Attending Dr: Tania Lucero D.O. Ordering Physician: Tania Lucero D.O. Date of Service: 07/15/24 Procedure(s): MR head/brain wo/w con Accession Number(s): [id number] cc: Shaikh Roxi Acevedo; Tania Lucero D.O. [place] [address] Patient Name: FUNMI JULIO MRN: [id number] date: 1955 Sex: M Assigned Patient Location: LAB Current Patient Location: LAB Accession/Order Number: [id number] Exam Date: 07/15/2024 09:01 Report Date: 07/15/2024 18:35 At the request of: TANIA LUCERO Procedure: MR head/brain wo/w con EXAM: [...] M.D. Signed By: 07/15/241836 DD/ 34 TD/TT: Laborer Wharf: ADRIAN HealthcareRadiology Study observation (narrative)[facility] Psychiatric CenterI HEAD/BRAIN WO/W CONTROrdered By: Radiologist Radiology on 50-99-1603FKLA FanKave Work Phone: [facility] 84-50-8656YsyspygtzOiejlufzb From: Tracy Walls LPN To: N - Clinical; Sent: 05/31/2024 09:11:26 EDT Show up: 04/29/2034 07:00:00 EDT Subject: colonoscopy recall Due Date/Time: 05/29/2034 07:00:00 EDT Reminder/Recall Patient due for screening colonoscopy 05/29/2034.[facility] HospitalInsurance Correspondenceon 01-51-8190Zkzizypcc Correspondence [id number]#1.00TIFCherrington HospitalConsent for Procedure/Surgeryon 56-33-1189Qgiaaqb for Procedure/Surgery [id number]#1.00TIFCherrington HospitalFacesheeton 42-46-3446Vvnkbafcc [id number]#1.00TIFCherrington HospitalAmbulatory Visit Summaryon 78-43-6383Gypqkrhqko Visit Summary FUNMI JULIO :1955 Visit Date:04/16/2024 Ambulatory Visit Instructions Your Diagnosis Screening for malignant neoplasm of colon Class 3 obesity Your Care Team Attending Physician - MARTÍN PARISH, Funmi Santos Primary Care Physician - KRISTINA PARISH, Referring Physician - RACHID BARILLAS MD This Is Your Medications List Contact prescribing physician if questions or concerns amlodipine (amLODIPine 10 mg Tab) aspirin (aspirin 81 mg Chew Tab) hydrochlorothiazide-lisinopril (hydrochlorothiazide-lisinopril 12.5 mg-20 mg Tab) [...] 1 Tablets Chewed Every day Contact prescribing physicianif questions or concerns Unchanged hydrochlorothiazide-lisinopril (hydrochlorothiazide-lisinopril 12.5 [...] you for choosing us for your care. [facility] HospitalCT CHEST WO CONon 33-81-1412Tli [address] [address] [address] Scan Report Signed Patient: FUNMI JULIO MR#: [id number] : 1955 Acct:[id number] Age/Sex: 68 / M ADM Date: 03/06/24 Loc: CT Attending Dr: Shaikh Kristina Diane Ordering Physician: Shaikh Roxi Acevedo Date of Service: 03/06/24 Procedure(s): CT chest wo con Accession Number(s): [id number] cc: Shaikh Roxi Acevedo [address] [address] Patient Name: FUNMI JULIO MRN: [id number] date: 1955 Sex: M Assigned Patient Location: CT Current Patient Location: CT Accession/Order Number: [id number] Exam Date: 03/06/2024 08:46 Report Date: 03/06/2024 [...] plain film findings Electronically authenticated by: ELDON GARCÍA Date: 03/06/2024 09:48 Dictated By: lEdon García M.D. Signed By: 03/06/24950 DD/ 7 TD/TT: Laborer Wharf:TBHRadiology, Radiologist, - 03/06/2024 [place] [address] CT Scan Report Signed Patient: FUNMI JULIO MR#: [id number] : 1955 Acct:[id number] Age/Sex: 68 / M ADM Date: 03/06/24 Loc: CT Attending Dr: Shaikh Kristina Diane Ordering Physician: Shaikh Roxi Acevedo Date of Service: 03/06/24 Procedure(s): CT chest wo con Accession Number(s): [id number] cc: Shaikh Roxi Acevedo [facility] [place] [address] Patient Name: FUNMI JULIO MRN: [facility]:[id number] date: 1955 Sex: M Assigned Patient Location: CT Current Patient Location: CT Accession/Order Number: [id number] Exam Date: 03/06/2024 08:46 Report Date: 03/06/2024 [...] mass, effusion, or pneumothorax. VASCULATURE: No abnormality. LIUS: No mass or adenopathy. MEDIASTINUM: No mass [...] plain film findings Electronically authenticated by: ELDON GARCÍA Date: 03/06/2024 09:48 Dictated By: Eldon García M.D. Signed By: 03/06/24950 DD/ 7 TD/TT: Laborer Wharf: [facility] HealthcareRadiology Study observation (narrative)[facility] HospitalCT CHEST WO CONOrdered By: Radiologist Radiology on 11-81-8780HQGG Healthcare Work Phone: XR CHEST 2Von 92-04-2453[place] [address] XRay Report Signed Patient: FUNMI JULIO MR#: [id number] : 1955 Acct:[id number] Age/Sex: 68 / M ADM Date: 01/11/24 Loc: RAD Attending Dr: Shaikh Kristina Diane Ordering Physician: Shaikh Roxi Acevedo Date of Service: 01/11/24 Procedure(s): XR chest 2V Accession Number(s): [id number] cc: Shaikh Roxi Acevedo; Rachid Barillas M.D. [facility] [place] [address] Patient Name: FUNMI JULIO MRN: [id number] date: 1955 Sex: M Assigned Patient Location: RAD Current Patient Location: RAD Accession/Order Number: [id number] Exam Date: 01/11/2024 11:38 Report Date: 01/11/2024 [...] Signed By: 01/11/24 1156 DD/ 1153 TD/TT: Laborer Wharf:TBHRadiology, Radiologist, MD - 01/31/2024 [place] [address] XRay Report Signed Patient: FUNMI JULIO MR#: [id number] : 1955 Acct:[id number] Age/Sex: 68 / M ADM Date: 01/11/24 Loc: RAD Attending Dr: Shaikh Kristina Diane Ordering Physician: Shaikh Roxi Acevedo Date of Service: 01/11/24 Procedure(s): XR chest 2V Accession Number(s): [id number] cc: Shaikh Roxi Acevedo; Rachid Barillas M.D. The [address] [address] Patient Name: FUNMI JULIO MRN: [facility]:[id number] date: 1955 Sex: M Assigned Patient Location: RAD Current Patient Location: RAD Accession/Order Number: [id number] Exam Date: 01/11/2024 11:38 Report Date: 01/11/2024 [...] lower lobe is unchanged. Electronically authenticated by: OLRANDO RIVERS Date: 01/11/2024 11:53 Dictated By: Orlando Rivers M.D. Signed By: 01/11/24 1156 DD/ 1153 TD/TT: Laborer Wharf: NOM HealthcareRadiology Study observation (narrative)[facility] Mercy HospitalXR CHEST 2V Ordered By: Radiologist Radiology on 51-57-1228YCQU FanKave Work Phone: XR CHEST 2Von 58-08-3734[place] [address] XRay Report Signed Patient: FUNMI JULIO MR#: [id number] : 1955 Acct:[id number] Age/Sex: 67 / M ADM Date: 11/16/23 Loc: LAB Attending Dr: Shaikh Kristina Diane Ordering Physician: Shaikh Roxi Acevedo Date of Service: 11/16/23 Procedure(s): XR chest 2V Accession Number(s): [id number] cc: Shaikh Roxi Acevedo; Rachid Barillas M.D. The [address] [id number] Patient Name: FUNMI JULIO MRN: [id number] date: 1955 Sex: M Assigned Patient Location: LAB Current Patient Location: LAB Accession/Order Number: [id number] Exam Date: 11/16/2023 10:21 Report Date: 11/18/2023 [...] follow-up to document clearing. Electronically authenticated by: SHAZIA ARMSTRONG Date: 11/18/2023 01:56 Dictated By: Shazia Armstrong M.D. Signed By: 11/18/23158 DD/ 5 TD/TT: Laborer Wharf:TBHRadiology, Radiologist, MD - 11/18/2023 [place] [address] XRay Report Signed Patient: FUNMI JULIO MR#: [id number] : 1955 Acct:[id number] Age/Sex: 67 / M ADM Date: 11/16/23 Loc: LAB Attending Dr: Shaikh Kristina Diane Ordering Physician: Shaikh Roxi Acevedo Date of Service: 11/16/23 Procedure(s): XR chest 2V Accession Number(s): [id number] cc: Shaikh Roxi Acevedo; Rachid Barillas M.D. The [address] [address] Patient Name: FUNMI JULIO MRN: [id number] date: 1955 Sex: M Assigned Patient Location: LAB Current Patient Location: LAB Accession/Order Number: [id number] Exam Date: 11/16/2023 10:21 Report Date: 11/18/2023 [...] follow-up to document clearing. Electronically authenticated by: SHAZIA ARMSTRONG Date: 11/18/2023 01:56 Dictated By: Shazia Armstrong M.D. Signed By: 11/18/23158 DD/ 5 TD/TT: Laborer [place]: [facility] HealthcareRadiology Study observation (narrative)[facility] HospitalXR [facility] 2V Ordered By: Radiologist Radiology on 63-40-5990FEPZ [employer] Work Phone: cARDIAC STRESS TESTon 40-58-4286ANTJVTD STRESS TEST CARDIAC STRESS TEST LEXISCAN CARDIOLITE [...] interpreted and reported in a separate dictation. [facility] Signed and Approved by: DR PADDY STANFORD 02/01/2022 09:17:00[facility] STRESS/REST MULTIon 01-25-2022 [place] STRESS/REST MULTIPatient: FUNMI JULIO Exam Date: 01/25/2022 : 1955 Gender:M Ordering : MARIANELA MCCULLOUGH Admission #: [id number] Family : Order #: [id number] CLICK HERE TO VIEW EXAM RADIOLOGY REPORT [...] motion and ejection fraction. Dictated by: Shazia Armstrong M.D. on 01/26/2022 at 11:46 Approved by: Shazia Armstrong M.D. on 01/26/2022 at 11:49NormalThTriHealthBNPon 45-92-3247QE PRO BNP<11.1Normal<=900.0The [facility] SystemComment on above:Performed By: #### BNP, CMP, LIPID, CRP #### [facility] [address] [place] [address] Dr. Ramesh LassiterC AUTO DIFFon [id number] #0.1 103/ulNormal0.0-0.1The [facility] SystemComment on above:Performed By: #### CBC #### [facility] [address] [place] [address] Dr. Ramesh MinBasophils/100 WBC (Bld)0.5 %Normal0.2-2.0The [facility] Comment on above:Performed By: #### CBC #### [facility] [address] [place] [address] Dr. Ramesh Ryan #0.2 103/ulNormal0.0-0.7The [facility] SystemComment on above: Performed By: #### CBC #### [facility] [address] [place] [address] Dr. Ramesh Villanuevaosinophils/100 WBC (Bld)2.0 %Normal0.9-7.0The [facility] Comment on above:Performed By: #### CBC #### [facility] [address] [place] [address] Dr. Ramesh Villanuevarythrocyte distribution width (RBC) [Ratio]13.1 %Krynjt46.0-15.0 The [facility] SystemComment on above:Performed By: #### CBC #### [facility] [address] [place] [address] Dr. Ramesh MinHematocrit (Bld) [Volume fraction]44.2 %Nqpdts22.0-54.0The [facility] SystemComment on above:Performed By: #### CBC #### [facility] [address] [place] [address] Dr. Ramesh MinHemoglobin (Bld) [Mass/Vol]14.8 g/lEGjfvbs88.0-18.0The [facility] SystemComment on above:Performed By: #### CBC #### [facility] [address] [address] [address] Ramesh Claudio #0.05 10e3/ulCritically high0.00-0.03The [facility] Comment on above:Performed By: #### CBC #### [facility] [address] [address] [address] Ramesh Claudio %0.5 %Normal0.0-0.5The [facility] SystemComment on above: Performed By: #### CBC #### [facility] [address] [place] [address] Dr. Ramesh Burns #2.4 103/ulNormal1.2-3.8The [facility] SystemComment on above:Performed By: #### CBC #### [facility] [address] [place] [address] Dr. Ramesh Montgomeryhocytes/100 WBC (Bld)25.0 %Jqffsl10.5-60.0[facility] HospitalComment on above:Performed By: #### CBC #### [facility] [address] [address] [address] Ramesh EspinozaUAL DIFF REQNONormalThe [facility] Health SystemComment on above: Performed By: #### CBC #### [facility] [address] [address] [address] Ramesh Bello (RBC) [Entitic mass]30.5 iwQdptds83.9-34.0The [facility] SystemComment on above:Performed By: #### CBC #### [facility] [address] [place] [address] Dr. Ramesh Bello (RBC) [Mass/Vol]33.5 g/hJZrqzam71.9-35.2The [facility] SystemComment on above:Performed By: #### CBC #### [facility] [address] [place] [address] Dr. Ramesh Bello (RBC) [Entitic vol]91.1 fLUvxsys41.0-94.0[facility] HospitalComment on above:Performed By: #### CBC #### [facility] [address] [address] [address] Ramesh Mock #0.8 103/ulNormal0.3-0.8The [facility] SystemComment on above:Performed By: #### CBC #### [facility] [address] [address] [address] Ramesh Godinezocytes/100 WBC (Bld)8.8 %Normal1.7-12.0The [facility] Comment on above:Performed By: #### CBC #### [facility] [address] [place] [address] Dr. Ramesh Atkins #6.1 103/ulNormal1.4-6.5The [facility] SystemComment on above:Performed By: #### CBC #### [facility] [address] [place] [address] Dr. Ramesh Lopezutrophils/100 WBC (Bld)63.2 %Thlpfp07.0-75.0The [facility] SystemComment on above:Performed By: #### CBC #### [facility] [address] [place] [address] Dr. Ramesh Salazar mean volume (Bld) [Entitic vol]8.7 fLCritically low 9.5-13.5The [facility] SystemComment on above:Performed By: #### CBC #### [facility] [address] [place] [address] Dr. Ramesh MinPLT330 103/wpVqsmzo554-423Rvm [facility] SystemComment on above: Performed By: #### CBC #### [facility] [address] [place] [address] Dr. Ramesh MinRBC4.85 106/ulNormal4.70-6.10The [facility] SystemComment on above:Performed By: #### CBC #### [facility] [address] [place] [address] Dr. Ramesh MinWBC9.6 103/ulNormal4.0-11.0The Amina HospitalComment on above: Performed By: #### CBC #### [facility] [address] [place], [place] [address] Dr. Ramesh Wilson 60-25-6979GMM9.7 mg/dLNormal<=1.0[facility] Comment on above:Performed By: #### BNP, CMP, LIPID, CRP #### [facility] [address] [address] [address] Chandler ChangECHOCARDIO M/2D COMPLETEon 89-32-4850AASXVGHIMO M/2D COMPLETE Patient: FUNMI JULIO Exam Date: 01/12/2022 : 1955 Gender:M Ordering : MARIANELA MCCULLOUGH Admission #: [id number] Family : Order #: [id number] CLICK HERE TO VIEW EXAM ECHOCARDIOGRAM REPORT [...] (Antegrade Flow): 1.34 m/s AoV Area (Peak Owo): 2.72 cm2, 2.72 cm2 Peak Velocity(Antegrade Flow): 1.34 m/s Peak Gradient(Antegrade Flow): 7.16 mm[Hg] Tricuspid Valve Peak Velocity: 0.36 m/s, 0.37 m/s Pulmonic Valve PV Max Woo (0.6 - 0.9 m per sec): 1.24 m/s PV Max Gradient: 6.18 mm[Hg] Right Atrium Dictated by: Ronda Gao M.D. on 01/13/2022 at 08:49 Approved by: Ronda Gao M.D. on 01/13/2022 at 08:51[facility] Children's HospitalGLYCOHEMOGLOBIN A1Con 51-66-3492ULN RECOMMENDATIONADA THERAPEUTIC TARGET 6.0 - 7.0 ACTION SUGGESTED > 7.0[facility] Children's HospitalComment on above: Performed By: #### A1C #### [facility] [address] [place] [address] Dr. Ramesh MinGlucose [Mass/Vol]137 mg/dLNationwide Children's HospitalComment on above:Performed By: #### A1C #### [facility] [address] [place] [address] Dr. Ramesh MinHbA1c (Bld) [Mass fraction]6.4 %Critically high<=6.0The [facility] SystemComment on above:Performed By: #### A1C #### [facility] [address] [place] [address] Dr. Ramesh MinLIPID PROFILEon [id number]-HDL RATIO NORMSEE Wilson Street HospitalComment on above:Result Comment: 3.3 - 4.4 LOW RISK 4.4 - 7.1 AVERAGE RISK 7.1 - 11.0 MODERATE RISK >11.0 HIGH RISKPerformed By: #### BNP, CMP, LIPID, CRP #### [facility] [address] [place] [address] Dr. Ramesh MinCholesterol [Mass/Vol]125 mg/dLNormal<=200[facility] Comment on above:Performed By: #### BNP, CMP, LIPID, CRP #### [facility] [address] [address] [address] Ramesh Mosleyesterol in HDL [Mass/Vol]39 mg/dLNationwide Children's Hospital Comment on above:Performed By: #### BNP, CMP, LIPID, CRP #### [facility] [address] [address] [address] Ramesh MinCholesterol in LDL [Mass/Vol]69.2 mg/dLNationwide Children's HospitalComment on above:Performed By: #### BNP, CMP, LIPID, CRP #### [facility] [address] [place] [address] Dr. Ramesh Saldivar.total/Cholesterol in HDL [Mass ratio]3.2 {ratio} NormalThe [facility] Health SystemComment on above:Performed By: #### BNP, CMP, LIPID, CRP #### [facility] [address] [address] [address] Ramesh Malhotra NORMAL> or = 60 mg/dl - LOW CARDIOVASCULAR RISK <40 mg/dl - HIGH CARDIOVASCULAR RISKNationwide Children's HospitalComment on above:Performed By: #### BNP, CMP, LIPID, CRP #### [facility] [address] [address] [address] Ramesh MinLDL CALC NORMALSEE BELOWNationwide Children's HospitalComment on above:Result Comment: <100 mg/dl OPTIMAL 100 - 129 mg/dl NEAR OR ABOVE OPTIMAL 130 - 159 mg/dl BORDERLINE HIGH 160 - 189 mg/dl HIGH >190 mg/dl VERY HIGH Performed By: #### BNP, CMP, LIPID, CRP #### [facility] [address] [address] [address] Ramesh MinTriglyceride [Mass/Vol]84 mg/dLNormal<=150[facility] Comment on above:Performed By: #### BNP, CMP, LIPID, CRP #### [facility] [address] [address] [address] Ramesh OlivaresLDL CALC16.8 mg/dLNormalThe [facility] SystemComment on above: Performed By: #### BNP, CMP, LIPID, CRP #### [facility] [address] [address] [address] Ramesh Harper 14(COMP METB)on 79-51-3948Tuzmkga [Mass/Vol]3.7 g/dLNormal 3.5-5.0The [facility] SystemComment on above:Performed By: #### BNP, CMP, LIPID, CRP #### [facility] [address] [address] [address] Ramesh MinAlbumin/Globulin [Mass ratio]0.9 {ratio}NormalThe [facility] SystemComment on above:Performed By: #### BNP, CMP, LIPID, CRP #### [facility] [address] [address] [address] Ramesh Murphy [Catalytic activity/Vol]75 U/RCswnaq55-639Snd [facility] SystemComment on above:Performed By: #### BNP, CMP, LIPID, CRP #### [facility] [address] [address] [address] Ramesh Nicholas [Catalytic activity/Vol]33 U/WVcdgyt89-37Ifl [facility] SystemComment on above:Performed By: #### BNP, CMP, LIPID, CRP #### [facility] [address] [address] [address] Ramesh Calero gap [Moles/Vol]10.8 mmol/LNormalThe [facility] Comment on above:Performed By: #### BNP, CMP, LIPID, CRP #### [facility] [address] [address] [address] Ramesh MinAST [Catalytic activity/Vol]15 U/LCritically dks23-08Iag [facility] SystemComment on above:Performed By: #### BNP, CMP, LIPID, CRP #### [facility] [address] [address] [address] Ramesh MinBilirubin [Mass/Vol]0.3 mg/dLNormal0.2-1.3The [facility] Comment on above:Performed By: #### BNP, CMP, LIPID, CRP #### [facility] [address] [place] [address] Dr. Ramesh MinCalcium [Mass/Vol]9.5 mg/dLNormal8.4-10.2[facility] Comment on above:Performed By: #### BNP, CMP, LIPID, CRP #### [facility] [address] [place] [address] Dr. Ramesh MinChloride [Moles/Vol]103 mmol/JRupzrc51-071ZorWooster Community Hospital Comment on above:Performed By: #### BNP, CMP, LIPID, CRP #### [facility] [address] [place] [address] Dr. Ramesh MinCO2 [Moles/Vol]28.4 mmol/GAccdop79.0-30.0[facility] Comment on above:Performed By: #### BNP, CMP, LIPID, CRP #### [facility] [address] [place] [address] Dr. Ramesh MinCreatinine [Mass/Vol]0.92 mg/dLNormal0.66-1.25ThTriHealthComment on above:Performed By: #### BNP, CMP, LIPID, CRP #### [facility] [address] [place] [address] Dr. Ramesh VillanuevaGFR-AF CITIZEN OF [place]>60Normal>=60The [facility] SystemComment on above:Performed By: #### BNP, CMP, LIPID, CRP #### [facility] [address] [place] [address] Dr. Ramesh VillanuevaGFR-NON AF CITIZEN OF [place]>60Normal>=60The [facility] SystemComment on above:Performed By: #### BNP, CMP, LIPID, CRP #### [facility] [address] [place] [address] Dr. Ramesh MinGlobulin (S) [Mass/Vol]4.1 g/dLNormalThe [facility] SystemComment on above:Performed By: #### BNP, CMP, LIPID, CRP #### [facility] [address] [address] [address] Ramesh MinGlucose [Mass/Vol]104 mg/wWTpiwqo55-278Kkc [facility] Comment on above:Performed By: #### BNP, CMP, LIPID, CRP #### [facility] [address] [address] [address] Ramesh MinPotassium [Moles/Vol]4.2 mmol/LNormal3.4-5.0The [facility] Comment on above:Performed By: #### BNP, CMP, LIPID, CRP #### [facility] [address] [address] [address] Ramesh MinProtein [Mass/Vol]7.8 g/dLNormal6.1-8.2The [facility] Comment on above:Performed By: #### BNP, CMP, LIPID, CRP #### [facility] [address] [address] [address] Ramesh MinSodium [Moles/Vol]138 mmol/STuswhd689-197Npb [facility] Comment on above:Performed By: #### BNP, CMP, LIPID, CRP #### [facility] [address] [address] [address] Ramesh MinUrea nitrogen [Mass/Vol]18.0 mg/dLNormal9.0-20.0The [facility] SystemComment on above:Performed By: #### BNP, CMP, LIPID, CRP #### [facility] [address] [address] [address] Ramesh Saleh nitrogen/Creatinine [Mass ratio]19.6 mg/mgNormalThe [facility] SystemComment on above:Performed By: #### BNP, CMP, LIPID, CRP #### [facility] [address] [address] [address] Ramesh Ponce RATE WESTERGRENon 74-11-0478QED RATE20 mm/hrNormal<=20The [facility] SystemComment on above:Performed By: #### SEDR #### [facility] [address] [address] [address] Ramesh Min Vital Signs Date TimeVital SignValuePerforming MazfvgkfiWtdrpbvu64-15-0545 09:04-0400Body untker906.88 Helen Leticiahholz COMPUTER CONSOLE OPERATOR-C Work Phone: [phone]10-30-2025 09:04-0400 Body mass index (BMI) [Ratio]43.9 kg/m2Lisa Leticiahholz COMPUTER CONSOLE OPERATOR-C Work Phone: [phone]10-30-2025 09:04-0400 Body wrekukwaxjk05.8 [degF]Lela Leticiahholz COMPUTER CONSOLE OPERATOR-C Work Phone: [phone]10-30-2025 09:04-0400 Body .73 kgLisa Leticiahholz COMPUTER CONSOLE OPERATOR-C Work Phone: [phone]10-30-2025 09:04-0400 Diastolic blood bepdrosm51 mm[Hg]Lela Kellyhholz COMPUTER CONSOLE OPERATOR-C Work Phone: [phone]10-30-2025 09:04-0400 Heart rate94 /minLisa Aichholz COMPUTER CONSOLE OPERATOR-C Work Phone: [phone]10-30-2025 09:04-0400 Respiratory rate20 /minLisa Aichholz COMPUTER CONSOLE OPERATOR-C Work Phone: [phone] [place], [place] 6788010-30-2025 09:04-0400 SaO2% (BldA) [Mass fraction]92 %Lela Aichholz COMPUTER CONSOLE OPERATOR-C Work Phone: [phone] [place], [place] 6788010-30-2025 09:04-0400 Systolic blood traeeath202 mm[Hg]Lela Leticiahholz COMPUTER CONSOLE OPERATOR-C Work Phone: [phone] [place], [place] 6788010-08-2025 09:20-0400 Body lmyshm620.77 [facility] 09:20-0400 Diastolic blood akcuiluk183 mm[Hg][facility]10-08-2025 09:20-0400Heart rate83 /[facility]10-08-2025 09:20-8957ItX3% (BldA) [Mass fraction]92 %[facility] 09-03-2025 09:20-0400Systolic blood ihmsmrgs714 mm[Hg][facility]09-17-2025 09:45-0400Body imkcjb482.88 cmDel[facility] Hospital09-17-2025 09:45-0400Body mass index (BMI) [Ratio]43.7 kg/p6WddieimuwDelaware County Hospital09-17-2025 09:45-0400Body bwmmsmnaykw79.5 [degF][facility]09-17-2025 09:45-0400Body nzwgge287.11 kgDel[facility]09-17-2025 09:45-0400Diastolic blood tfxnjnnu25 mm[Hg] [facility]09-17-2025 09:45-0400Heart rate83 /[facility]09-17-2025 09:45-0400Respiratory rate24 /[facility]09-17-2025 09:45-1462HsR1% (BldA) [Mass fraction]94 % [facility]09-17-2025 09:45-0400Systolic blood dbvutzon639 mm[Hg][facility]07-30-2025 13:32-0400Body dtchow611.88 cm [facility]07-30-2025 13:32-0400Body mass index (BMI) [Ratio]42.8 kg/k0CuecomudbDelaware County Hospital07-30-2025 13:32-0400Body .33 kgDel[facility] Hospital07-30-2025 13:32-0400Diastolic blood orsdyaqp68 mm[Hg][facility]07-30-2025 13:32-0400 Heart rate77 /[facility]07-30-2025 13:32-7274AvN2% (BldA) [Mass fraction]91 %[facility]07-30-2025 13:32-0400 Systolic blood aplzremd465 mm[Hg][facility]06-17-2025 09:59-0400Body mass index (BMI) [Ratio]43.29 kg/m2Lela Solorzano COMPUTER CONSOLE OPERATOR Work Phone: [facility] HospitalOffjwmxmxe41-46-5238 09:59-0400Body temperature 96.69 [degF]Lela Solorzano COMPUTER CONSOLE OPERATOR Work Phone: [facility] HospitalSqvmsrhjzq77-83-8541 09:59-0400Body jlyvdn266.79 kgLela Solorzano COMPUTER CONSOLE OPERATOR Work Phone: [phone] [place], [place] [address]Qqsqsorxou23-26-2339 09:59-0400Diastolic blood niztlfui34 mm[Hg]Lela Solorzano COMPUTER CONSOLE OPERATOR Work Phone: [phone] [place], [place] [address]Aluazhfkmu54-67-3126 09:59-0400Heart rate51 /min Lela Solorzano COMPUTER CONSOLE OPERATOR Work Phone: [phone])[facility]-[address] [place], [place] [address]Fgcgfjhbtc65-80-8835 09:59-0400Respiratory rate20 /minLela Solorzano COMPUTER CONSOLE OPERATOR Work Phone: [phone])[facility] [place], [place] [address]Xydfelbfyg36-07-9974 09:59-2663BqF1% (BldA) [Mass fraction]94 %Lela Solorzano COMPUTER CONSOLE OPERATOR Work Phone: [facility] HospitalMzmgiooccd29-16-9922 09:59-0400Systolic blood skfjitvt276 mm[Hg]Lela Solorzano COMPUTER CONSOLE OPERATOR Work Phone: [phone] [place], [place] [address]Emetcfpeqm18-59-2261 11:36-0500Blood Pressure LocationKathy Lue [facility]01-22-2025 11:36-0500Body vdelnjkkvpe80.6 [degF]Tania Lue [facility]01-22-2025 11:36-0500Diastolic blood nqtosnwd56 mm[Hg]Tania Lue [facility]01-22-2025 11:36-0500Heart rate80 /minKathy Lue [facility]01-22-2025 11:36-0500Systolic blood lfravcjz815 mm[Hg]Tania Mariscal [facility]12-12-2024 09:29-0500Body .9 cmChioma Pradopatrick COMPUTER CONSOLE OPERATOR Work Phone: [facility] HospitalZvhkzdupsg75-30-7311 09:29-0500Body mass index (BMI) [Ratio]42.59 kg/k8Wrxsaelz Hardy COMPUTER CONSOLE OPERATOR Work Phone: [facility] HospitalXdsabgyubi35-11-9292 09:29-0500Body temperature 96.21 [degF]Chioma Servinzpatrick COMPUTER CONSOLE OPERATOR Work Phone: [facility] HospitalEvzskcdxjr40-10-4071 09:29-0500Body swedpc411.43 kgBrsukumar Pardopatrick COMPUTER CONSOLE OPERATOR Work Phone: [facility] HospitalFttiflmwlz91-87-1647 09:29-0500Diastolic blood arjyrwox26 mm[Hg]Chioma Hardy COMPUTER CONSOLE OPERATOR Work Phone: [facility] HospitalNbkhwojmou78-24-5935 09:29-0500Heart rate65 /min Chioma Hardy COMPUTER CONSOLE OPERATOR Work Phone: [facility] HospitalGgshmcgsot91-77-1760 09:29-0500Respiratory rate16 /minBrsukumar ServinHardy COMPUTER CONSOLE OPERATOR Work Phone: [facility] HospitalYvhdzztzkp11-21-6690 09:29-6338MhO1% (BldA) [Mass fraction]93 %Chioma Hardy COMPUTER CONSOLE OPERATOR Work Phone: [facility] HospitalEkfyayswrj28-20-1149 09:29-0500Systolic blood kfvakjyy805 mm[Hg]Chioma Hardy COMPUTER CONSOLE OPERATOR Work Phone: [facility] HospitalJsjqpmaxhj19-28-1329 15:15-0400Body mass index (BMI) [Ratio]41.45 kg/b4Xmvdkdclcyg Jazmine DO Work Phone: [facility] HospitalJjmxraojpj98-85-5453 15:15-0400Body vmyeqd887.62 kgChristopher Jazmine DO Work Phone: [facility] HospitalXogdwhsjvt79-54-9151 15:15-0400Diastolic blood vukdncyn29 mm[Hg]Christopher Jazmine DO Work Phone: [facility] HospitalAqtaefrlnj59-07-7295 15:15-0400Heart rate78 /min Christopher Jazmine DO Work Phone: [facility] HospitalAchclfdnbj57-25-9605 15:15-7664ZoE0% (BldA) [Mass fraction]94 %Christopher Jazmine DO Work Phone: [facility] HospitalNhaurfsqyl75-16-4046 15:15-0400Systolic blood izfocoaf935 mm[Hg]Christopher Jazmine DO Work Phone: [facility] HospitalXuopyfrqug72-92-6060 10:40-0400Diastolic blood meigepse64 mm[Hg]Tania Lue [facility]10-02-2024 10:40-0400Heart rate83 /minKathy Lue [facility]10-02-2024 10:40-0400Respiratory rate16 /minKathy Lue [facility]10-02-2024 10:40-0400Systolic blood ccicuaxz408 mm[Hg]Tania Lue [facility]08-27-2024 10:31-0400Body rjmuob775.9 cmChioma Hardy COMPUTER CONSOLE OPERATOR Work Phone: [facility] HospitalLmyzyqslww95-01-0399 10:31-0400Body mass index (BMI) [Ratio]42.18 kg/u9RmjblifmChioma Hardy COMPUTER CONSOLE OPERATOR Work Phone: NOAudrain Medical CenterVpfuocqiws09-81-8418 10:31-0400Body temperature 97.81 [degF]Chioma Mcginnisk COMPUTER CONSOLE OPERATOR Work Phone: [facility] HospitalVwniqlwieb66-13-1495 10:31-0400Body .07 kgChioma Hardy COMPUTER CONSOLE OPERATOR Work Phone: [facility] HospitalTinowbvhqk60-77-7246 10:31-0400Diastolic blood qpdendvc37 mm[Hg]Chioma Mcginnisk COMPUTER CONSOLE OPERATOR Work Phone: [facility] HospitalDjcvgxynlo04-20-4600 10:31-0400Heart rate85 /min Chioma Mcginnisk COMPUTER CONSOLE OPERATOR Work Phone: noME HealthcareComment on above:96% O025-12-5817 10:31-0400Systolic blood utfwviwa040 mm[Hg]Chioma Mcginnisk COMPUTER CONSOLE OPERATOR Work Phone: [facility] HospitalTewusscusd09-64-9259 15:18-0400Blood Pressure LocationMichael NILL [phone]-Koaej General Surgery Tnkuaoek39-46-0611 15:18-0400Diastolic blood mm[Hg]Funmi NILL [phone]-Ciatp General Surgery Hmsvedia29-55-9676 15:18-0400Heart rate76 /minMichael NILL [phone]-Rsxld General Surgery Aqdctech08-38-4897 15:18-0400Respiratory rate16 /minMichael NILL 937-0421Ppfmqb-Dwohm General Surgery Osvecnil70-28-5557 15:18-0400Systolic blood kbwqowoa409 mm[Hg]Funmi NILL [phone]-NbaukPar[facility] Encounters Encounter DateEncounter [facility] ProviderFacilityStart: 09-25-2025 End: 79-83-4340usrtgezvmwKijh J Aichholz COMPUTER CONSOLE OPERATOR-C Work Phone: -[facility] ClydeStart: 09-25-2025 End: 46-98-2986Wbofnit encounter procedureLisa Jesu Solorzano COMPUTER CONSOLE OPERATOR-C-[facility] Johnny Work Phone: Start: 09-24-2025 End: 05-88-8387gmxlnhqivpYGLEXKAK FITZPATRICKFacility:FTMCStart: 09-24-2025 End: 82-52-2754Wcikvka encounter procedureTania Mariscal [facility] start: 09-03-2025 End: 53-13-4704ixnikrelimLRXEast [facility] Work Phone: Start: 09-03-2025 End: 24-46-4276Xigvimx encounter procedureChrislaura Urias DO-[facility] Work Phone: Start: 08-13-2025 End: 59-50-5708oxnujtbyjlMNP [facility] Work Phone: Start: 08-13-2025 End: 05-83-4737Unubcdm encounter procedureLisa Jesu Solorzano COMPUTER CONSOLE OPERATOR-C-[facility] Medicine Johnny Work Phone: Start: 92-19-8589Annfpif encounter procedurePeoples Hospitaltart: 06-25-2025 End: 22-60-6660vcklwkelewQCJEast [facility] Regional Hospital Work Phone: Start: 06-25-2025 End: 97-33-9989Lpslkst encounter procedurePerri Og DO-[facility] Amina Work Phone: Start: 05-19-2025 End: 59-57-1862BxspqiTkws Aichholz COMPUTER CONSOLE OPERATOR Work Phone: NONZ CWM FMComment on above:Hyperlipidemia, unspecifiedStart: 05-13-2025 End: 49-28-2340Yebaqo flowsheetLela Solorzano COMPUTER CONSOLE OPERATOR Work Phone: noms CWM FMStart: 05-13-2025 End: 18-06-6516Odhfae flowsheetLela Solorzano COMPUTER CONSOLE OPERATOR Work Phone: noms CWM FMStart: 05-13-2025 End: 79-14-4959Ocjttkq encounter procedureLela Solorzano COMPUTER CONSOLE OPERATOR Work Phone: noms HealthcareComment on above:Encounter for subsequent annual wellness visit (AWV) in Medicare patient (Primary Dx); Type 2 diabetes mellitus with other specified complication (HCC); Obstructive sleep apnea syndrome; Benign essential hypertension ; Coronary arteriosclerosis ; Morbid (severe) obesity due to excess calories ([facility]-HCC); Type 2 diabetes mellitus without complication, without long-term current use of insulin (HCC); Primary hypertension ; Hyperlipidemia, unspecified ; Suspected chronic obstructive pulmonary disease based on initial evaluation (HCC)Start: 05-13-2025 End: 48-25-7684laccmupqxxIZIZ LETICIAStewartLOVEZNot AvailableStart: 04-04-2025 End: 10-78-8799Txymmamfz Result EncounterGeneric External Data ProviderNOMS External Department UnsolicitedStart: 04-04-2025 End: 58-87-8321Dynkckoof Result EncounterGeneric External Data ProviderNOMS External Department UnsolicitedStart: 04-02-2025 End: 01-26-0165Fruczierp Result EncounterGeneric External Data ProviderNOMS External Department UnsolicitedStart: 04-02-2025 End: 14-40-1704Hyvyqdtia Result EncounterGeneric External Data ProviderNOMS External Department UnsolicitedStart: 03-19-2025 End: 62-79-1692hcgtbamvjjMtwve M. LueFacility:RACHEL DeeueStart: 03-14-2025 End: 63-00-9646vxouebguwuOJSIYA MOOhioHealth [facility] Start: 03-12-2025 End: 00-25-2847Wzxqbcdhn Result EncounterLela Pagealex COMPUTER CONSOLE OPERATOR Work Phone: noms External Department UnsolicitedStart: 03-12-2025 End: 94-34-8679Xvwjlisyf Result EncounterLisa Malirafael COMPUTER CONSOLE OPERATOR Work Phone: noms External Department UnsolicitedStart: 03-12-2025 End: 00-00-5113Hbv Drop offDaybraden UriasHumera Jeanrocío [facility] Start: 03-12-2025 End: 10-36-7283mmfpvuykwpRCWUZRGS FITZPATRICKFacility:FTMCStart: 02-10-2025 End: 98-53-3966rngqlqwqgjRRZY Reymundo AvailableStart: 12-18-2024 End: 46-30-0765fkcoakgabfPctle M. LueFacility:EU BellevueStart: 12-18-2024 End: 28-49-3220Ewinwhk encounter procedureTania Mariscal [facility] start: 11-07-2024 End: 61-43-0252Eecsmz flowsheetBrittany Hardy COMPUTER CONSOLE OPERATOR Work Phone: noms CWM FMStart: 11-07-2024 End: 33-30-1519Qqncnr flowsheetBrittany Hardy COMPUTER CONSOLE OPERATOR Work Phone: noms CWM FMStart: 11-07-2024 End: 01-22-9156HchgykSuxvxivn Hardy COMPUTER CONSOLE OPERATOR Work Phone: noms CWM FMComment on above:Type 2 diabetes mellitus without complication, without long-term current use of insulin ([facility])Start: 11-07-2024 End: 21-10-3390Kuwlde outpatient visit 15 minutesBrsukumar Pardopatrick COMPUTER CONSOLE OPERATOR Work Phone: noms CWM FMComment on above:Type 2 diabetes mellitus without complication, without long-term current use of insulin ([facility]/HCC) (P rimary Dx); Mixed hyperlipidemia ([facility]/HCC); Primary hypertension ([facility]/HCC); BMI 40.0-44.9, adult ([facility]); Acute bronchitis with wheezing; Hyperlipidemia, unspecified ([facility]/HCC); Essential (primary) hypertension ([facility]/HCC); Major depressive disorder, recurrent, mild (HCC) ([facility]); Chronic GERD; Persistent depressive disorder ([facility]/HCC); Suspected chronic obstructive pulmonary disease based on initial evaluation ([facility])Start: 11-07-2024 End: 60-60-4728nyelehfpfoRQSKOHYCShubham Jacobs AvailableStart: 10-31-2024 End: 24-89-5350TgwvwkYvjriqb LykinsNOMS [facility] FMComment on above:Essential (primary) hypertension ([facility])Start: 09-10-2024 End: 80-86-9504Gorsxabhl Result EncounterGeneric External Data ProviderNOMS External Department UnsolicitedStart: 09-10-2024 End: 35-84-4659Jhnzemdmo Result EncounterGeneric External Data ProviderNOMS External Department UnsolicitedStart: 09-04-2024 End: 03-40-3745Qceqqr outpatient visit 25 minutesChristopher Jazmine DO Work Phone: noms [facility] [facility] R[facility]TEComment on above:Cognitive impairment (Primary Dx)Start: 09-04-2024 End: 86-09-6981wuugrxagyzIDVAQVRLITH HASSETTNot AvailableStart: 09-04-2024 End: 50-00-5078Rfhbct flowsheetChristopher Jazmine DO Work Phone: noms [place] [facility] R[address]TEStart: 09-04-2024 End: 72-57-5057Nbjedv flowsheetChristopher Jazmine DO Work Phone: noms [facility] [facility] ROUTEStart: 09-03-2024 End: 20-28-7622Bfpggimug Result EncounterGeneric External Data ProviderNOMS External Department UnsolicitedStart: 09-03-2024 End: 66-74-7559Lmuaxmomb Result EncounterGeneric External Data ProviderNOMS External Department UnsolicitedStart: 08-28-2024 End: 28-45-8106dywohhaphxBrexf M. LueFacility:EU ConetoeevueStart: 08-28-2024 End: 15-26-8043Ugwoutu encounter Isi Mariscal [facility] start: 08-27-2024 End: 87-26-8806nbkjzyosbtCOAQCUMD E PERRYFacility:EU evueStart: 08-27-2024 End: 68-07-9024Gnvdyoh encounter procedureJENNIFER E DANUTA [facility] start: 08-21-2024 End: 37-83-5308OlcxuxEbwvbtfkLeann Hardy COMPUTER CONSOLE OPERATOR Work Phone: noms [facility] FMComment on above:Type 2 diabetes mellitus without complication, without long-term current use of insulin (CMS/HCC)Start: 08-15-2024 End: 24-01-6662Aurfwxl encounter Ben Terrell PhD Work Phone: noMS ST NEUROLOGYComment on above:Memory loss (Primary Dx); ZENON on CPAP; Depression, unspecified depression type (CMS/HCC); History of alcohol abuseStart: 08-15-2024 End: 99-93-7180gjqyqzhhvlLBFU LETICIALOVEZNot AvailableStart: 07-30-2024 End: 48-17-2226Zrjdtm Amador Terrell PhD Work Phone: NOMS ST NEUROLOGYStart: 07-30-2024 End: 94-79-3639Fnvxrg Amador Terrell PhD Work Phone: noms ST NEUROLOGYStart: 07-30-2024 End: 83-52-5378Htixyne encounter Ben Terrell PhD Work Phone: noms ST NEUROLOGYComment on above:Mild cognitive impairment (Primary Dx); Memory loss; ZENON on CPAP; Depression, unspecified depression type (CMS/HCC); History of alcohol abuseStart: 07-30-2024 End: 23-49-5084mkgjatcprxTZWWYQKX DENBESTENNot AvailableStart: 07-24-2024 ambulatoryKathy LueFacility:EU [place]uskyStart: 07-23-2024 End: 61-23-3962Xckctt flowsheetChioma Mcginnisk COMPUTER CONSOLE OPERATOR Work Phone: NOMS CWM FMStart: 07-23-2024 End: 46-51-4555Bxirkx flowsheetBrsukumar Doshitrick COMPUTER CONSOLE OPERATOR Work Phone: NOMS CWM FMStart: 07-23-2024 End: 10-62-5216Ayuujo outpatient visit 25 minutesBrsukumar Doshitrick COMPUTER CONSOLE OPERATOR Work Phone: noms CWM FMComment on above:Type 2 diabetes mellitus without complication, without long-term current use of insulin (CMS/HCC) (P rimary Dx); Benign essential hypertension (CMS/HCC); Chronic GERD; Suspected chronic obstructive pulmonary disease based on initial evaluation (CMS/HCC); Mild cognitive impairment; Acute bronchitis with wheezing; Mixed hyperlipidemia (CMS/HCC); Cerumen debris on tympanic membrane of both ears; Solitary pulmonary nodule; Acquired buried penisStart: 07-23-2024 End: 77-66-9370npyacpxsrtDLYKXSHT FITZNILESTRICKNot AvailableStart: 07-15-2024 End: 85-71-2933Xldhmwzex Result EncounterChristopher Jazmine DO Work Phone: NOMS External Department UnsolicitedStart: 07-15-2024 End: 59-80-3714Foejzvahx Result EncounterChristopher Jazmine DO Work Phone: NOMS External Department UnsolicitedStart: 07-08-2024 End: 69-29-6334ksvwubrlzlEJOVYQPHIDU HASSETTNot AvailableStart: 05-29-2024 End: 10-40-2800mrmdggkeqjCkhrpzp Danielle VICTORLFacility:CD:[id number]: 05-23-2024 End: 98-59-9946swqxxmvksfEBACSK FAWWADNot AvailableStart: 04-16-2024 End: 75-00-2271acplafisptWbubtmt R NILLFacility:SELENA BellevueStart: 04-16-2024 End: 22-95-1947Aecvwdg encounter procedureMichael R NILL [phone]-Udtfo [facility] Start: 03-06-2024 End: 30-44-0664Wavpgatsf Result EncounterSevan Acevedo MD Work Phone: noms External Department UnsolicitedStart: 03-06-2024 End: 52-62-4817Zooyyoeke Result EncounterSevan Acevedo MD Work Phone: noms External Department UnsolicitedStart: 01-11-2024 End: 72-77-7898Ahrgvvujq Result EncounterSevan Acevedo MD Work Phone: noms External Department UnsolicitedStart: 01-11-2024 End: 42-24-7191Ccgngwutt Result EncounterSevan Acevedo MD Work Phone: noms External Department UnsolicitedStart: 11-18-2023 End: 01-45-0799Yyjsdandr Result EncounterSevan Acevedo MD Work Phone: noms External Department UnsolicitedStart: 11-18-2023 End: 26-93-2769Sjiuiejfq Result EncounterSevan Acevedo MD Work Phone: noms External Department UnsolicitedStart: 07-03-2022 ambulatoryMELISSA BOESFacility:O5Yzvgf: 71-21-0494tzeekvtxkyRRSZKNP SADIA Facility:F4Nkkol: 01-25-2022 End: 52-33-9644fzucpppuldTOOPFCC BOESFacility:L8Ogevb: 01-12-2022 End: 55-76-8158fphrhrgqzrHIBITZY BOESFacility:H1 Procedures DateProcedureProcedure DetailPerforming ClinicianStart: 49-29-4562Cqwboumlrr glycosylated h9rRijmsa Solorzano COMPUTER CONSOLE OPERATOR Work Phone: Start: 37-63-1987YD ECHO DOPPLER COMPLETEGeneric External Data ProviderStart: 93-92-8669BH CHEST WO CONGeneric External Data ProviderStart: 59-82-5653NLT BASIC METABOLIC PANELGeneric External Data Provider Start: 57-58-6408FTQ PRO BNPGeneric External Data ProviderStart: 22-24-4362PLD CBC WITH AUTO DIFFLisa Leticiastewartrafael COMPUTER CONSOLE OPERATOR Work Phone: Start: 56-12-2786GIG LUTEINIZING HORMONEGeneric External Data ProviderStart: 11-80-1921FYV TESTOSTERONEGeneric External Data ProviderStart: 48-06-8692GXP ESTROGENGeneric External Data ProviderStart: 97-43-1784RKN PROLACTINGeneric External Data ProviderStart: 27-42-8150DBU TESTOSTERONEGeneric External Data ProviderStart: 74-18-4501EDL HEAD/BRAIN WO/W CONTRChristopher Jazmine DO Work Phone: Start: 84-13-5364NxytlbmusqwRxsnkjob Hardy COMPUTER CONSOLE OPERATOR Work Phone: Start: 49-16-1088OcuxcspffqwNQXJWNOO DANUTA Start: 71-28-2695VS CHEST WO CONSevan Acevedo MD Work Phone: Start: 55-54-0247HM CHEST 2Roselia Acevedo MD Work Phone: Start: 14-07-4024QJ CHEST 2Roselia Acevedo MD Work Phone: Start: 59-14-2089VveskkesxcqYosgijl NILL Cardiac catheterizationMichael NILL History of tonsillectomyHistory of tonsillectomyRepair of umbilical herniaMichael NILL Tonsillectomy and adenoidectomyMichael NILL Plan of Treatment DateCare ActivityDetailAuthorStart: 22-29-7871Zadntmsmb for malignant neoplasm of colonNOME HealthcareStart: 29-50-6809Bpubxfzc screeningDiabetes: Retinopathy ScreeningNOMS HealthcareStart: 05-19-2026 End: 58-08-6819Fqwwenm encounter feneciuvr21/23/2026 11:00 AM EDT Office Visit [facility] [address] [place] [phone] Lela Solorzano NP [address] [place] [address] [facility] FMStart: 06-17-2026Medicare Annual Wellness (AWV) Medicare Annual Wellness (AWV)NOM HealthcareStart: 60-18-9965Bcrrs screening for proteinDiabetes: Urine Protein ScreeningNOME HealthcareStart: 02-10-2026 Pneumococcal Vaccine: 65+ Years (1 of 2 - PCV)Pneumococcal Vaccine: 65+ Years (1 of 2 - PCV)[facility] HealthcareComment on above:Postponed from 1976 (Patient Refused)Start: 59-16-5383Sfbbolyhxa A1c measurementDiabetes: Hemoglobin M5TLIZO HealthcareStart: 09-03-2025 End: 03-78-1229Xjntuuf encounter procedureNOBARNEY CHILDR[facility] ROUTEStart: 23-07-1659Lvvctgwzit A1c measurementDiabetes: Hemoglobin V0PRLLO Healthcare Start: 05-99-9838Qznfsyu referralOur Lady Of Mercy Hospital Work Phone: Start: 08-13-2025 End: 39-33-0468Fvsdrep encounter zcutqleer41/17/2025 9:40 AM EDT Office Visit [facility] [address] [place] [phone] Lela Solorzano NP [address] [place] [address] [facility] FMStart: 89-45-2996DSRRY-19 Vaccine ( season)COVID-19 Vaccine ()NOM HealthcareStart: 07-28-2025 Influenza vaccinationNOME HealthcareStart: 06-27-2025Medicare Annual Wellness (AWV)Medicare Annual Wellness (AWV)NOM HealthcareStart: 05-13-2025 End: 77-35-2962Fzflkst encounter procedureNOHILLCREST HOSPITAL SOUTH FMComment on above:Encounter for subsequent annual wellness visit (AWV) in Medicare patient (Primary Dx); Type 2 diabetes mellitus with other specified complication (HCC); Obstructive sleep apnea syndrome; Benign essential hypertension ; Coronary arteriosclerosis ; Morbid (severe) obesity due to excess calories ([facility]-HCC); Type 2 diabetes mellitus without complication, without long-term current use of insulin ([facility])Start: 02-10-2025 End: 82-96-7143Segpxvi encounter mlcnyacwh58/17/2025 9:30 AM EDT Office Visit [facility] FM [address] [place] [phone] Chioma Hardy NP [address] [place] [address] [facility] FMStart: 77-70-2896Hkokj screening for protein Diabetes: Urine Protein ScreeningNOME HealthcareStart: 25-90-4911Maplqznsg vaccinationInfluenza Vaccine (#1)[facility] HealthcareComment on above:Postponed from 07/28/2024 (Patient Refused)Start: 11-07-2024 End: 17-31-7480Nobtqle encounter procedureNOHILLCREST HOSPITAL SOUTH FMComment on above:Arrived Start: 10-23-2024 End: 67-89-2653Uqgzjis encounter liwirdhvn81/27/2024 9:30 AM EST Office Visit [facility] [address] [place] [phone] Chioma Hardy, COMPUTER CONSOLE OPERATOR [address] [place] [address] NOMS CW FMStart: 09-04-2024 End: 36-96-8994Bjmatkq encounter procedureNOME [facility] STATE ROUTEComment on above:ArrivedStart: 08-15-2024 End: 06-63-2163Gxhvxsb encounter dtrtnlopz04/19/2024 9:00 AM EDT Office Visit [facility] [address] [address] [facility]UROLOGYStart: 92-89-5585Dasevewqdl A1c measurementDiabetes: Hemoglobin A1C [facility] HealthcareStart: 07-30-2024 End: 62-93-9476Zngovht encounter procedureNOCENTRAL AL[facility]AMA [facility] NEUROLOGYComment on above:Mild cognitive impairmentStart: 44-08-2330Ccojbpujz vaccinationInfluenza Vaccine (#1)[facility] HealthcareStart: 07-23-2024 End: 90-83-7118Vccucun encounter brovsnxhj97/27/2024 10:30 AM EDT Office Visit [facility] FM [address] [place] [place] [phone] Chioma Hardy, DEX [address] [place] [place] [address] ArrivedNOHILLCREST HOSPITAL SOUTH FMComment on above:ArrivedStart: 1962 DTaP/Tdap/Td Vaccines (1 - Tdap)DTaP/Tdap/Td Vaccines (1 - Tdap)[facility] Healthcare Start: 13-97-8638Ljwfpbwnwqrz Vaccine: 65+ Years (1 of 2 - PCV)Pneumococcal Vaccine: 65+ Years (1 of 2 - PCV)[facility] HealthcareStart: 04-09-5791MZX Vaccines (1 of 1 - Standard series)MMR Vaccines (1 of 1 - Standard series)[facility] Healthcare Start: 05-22-7134Iajtvrpuq for malignant neoplasm of colonNOMS HealthcareMR Lumbar spine WO contrastDelaware County HospitalPatient EducationLow back pain in adultsOur Lady Of Mercy Hospital Work Phone: Patient [facility] Work Phone: XR Lumbar spine 2 or 3 [place] - bilateral [place] Immunizations Immunization DateImmunizationNotesCare EdivcmrrLnwdcxon00-53-1300mnonseutp virus vaccine, unspecified formulationMichael NILL [phone]-LgmmvParma [facility]11-02-2023 Influenza, High-dose Seasonal, Quadrivalent, Preservative FreeBrittany Hardy COMPUTER CONSOLE OPERATOR Work Phone: [facility] HospitalHlbdottstk22-85-3998SXFR-BgQ-5 (COVID-19) mRNA- 1273 vaccineMichael NILL [phone]-ZcfoeParma Community General Hospital10-17-2021 influenza virus vaccine, unspecified formulationKathy Lue [facility]10-17-2021influenza, injectable, quadrivalent, preservative freeBrittany Hardy COMPUTER CONSOLE OPERATOR Work Phone: [facility] HospitalKejflfhnvi23-23-1509TKQN-YqW-8 (COVID-19) mRNA- 1273 vaccineMichael NILL [phone]-ZxsfuParma Community General Hospital03-13-2021 SARS-CoV-2 (COVID-19) mRNA-1273 vaccineMichael NILL [phone]-JjnqhParma Community General Hospital10-01-2020 influenza virus vaccine, unspecified formulationBrittany Hardy COMPUTER CONSOLE OPERATOR Work Phone: [facility] HospitalConiiuiksj45-14-7815egmjeczqv virus vaccine, unspecified formulationKathy Lue [facility]09-30-2020influenza, injectable, quadrivalent, preservative freeBrittany Hardy COMPUTER CONSOLE OPERATOR Work Phone: [phone] [place], [place] [address]Gybpgfspqm61-16-2410qygzczwau virus vaccine, unspecified formulationKathy Lue [facility]12-23-2019influenza, injectable, quadrivalent, contains preservative Chioma Hardy COMPUTER CONSOLE OPERATOR Work Phone: [facility] HospitalZtrwfxmlce82-75-7310meueil vaccine recombinant Chioma Hardy COMPUTER CONSOLE OPERATOR Work Phone: [facility] HospitalEevwjlytxl82-86-5597uuyvji vaccine recombinant Chioma Hardy COMPUTER CONSOLE OPERATOR Work Phone: [facility] HospitalUlrcxityfj34-50-8873ruttaz vaccine recombinant Chioma Hardy COMPUTER CONSOLE OPERATOR Work Phone: [facility]09-18-2018influenza virus vaccine, unspecified formulationKathy Lue [facility]09-18-2018influenza, seasonal, injectableBrittany Hardy COMPUTER CONSOLE OPERATOR Work Phone: [facility] HospitalHrojtffrqu31-93-2780bbjotw vaccine recombinant Chioma Hardy COMPUTER CONSOLE OPERATOR Work Phone: [facility]10-20-2017influenza virus vaccine, unspecified formulationKathy Lue [facility]10-20-2017influenza, seasonal, injectableBrittany Hardy COMPUTER CONSOLE OPERATOR Work Phone: [facility] HospitalAeqichkgvg59-64-9547kqyqxnypk virus vaccine, unspecified formulationKathy Lue [facility]11-20-2015influenza, seasonal, injectableBrittany Hardy COMPUTER CONSOLE OPERATOR Work Phone: [facility] HospitalYaeglpnnac84-10-1072yfuqinozn virus vaccine, unspecified formulationKathy Lue [facility]09-09-2013influenza, seasonal, injectable, preservative freeBrittany Hardy COMPUTER CONSOLE OPERATOR Work Phone: [facility] HospitalCjteshsbnd76-37-1112mpgednfpl virus vaccine, unspecified formulationKathy Lue [facility]09-13-2012influenza, seasonal, injectable, preservative freeBrittany Hardy COMPUTER CONSOLE OPERATOR Work Phone: [facility] HospitalTegfscdvcl65-94-9713wmkisgpzk virus vaccine, unspecified formulationKathy Lue Exonjzzho [facility]09-16-2011influenza, seasonal, injectable, preservative freeBrittany Hardy COMPUTER CONSOLE OPERATOR Work Phone: [facility] HospitalLxhztkjcnk07-58-0586hrgalmtdg virus vaccine, unspecified formulationBrittany Hardy COMPUTER CONSOLE OPERATOR Work Phone: [facility] Payers DatePayer CategoryPayerPolicy [id number] Health Insurance [id number] MEDICARE ADVANTAGE [id number] 2023MedicareAETNA MEDICARE ADVANTAGE AETNA MEDICARE REPLACEMENT [id number] 2022-Present [address] [place] [id number] Health [id number] Health [id number] 40-88-7259Zdfvwsr Health SyspauvybTJM552241664-82-5085Xhay-huj07-89-8203Pmlzzmy [id number] 2.16.840.1.339977.3.57[id number] 2.840.1.633864.3.57[id number] 2.840.1.952455.3.57[id number] 2.840.1.039227.3.57[id number] 2.840.1.279430.3.579.[id number] 2.840.1.827743.3.57[id number] 2.840.1.953470.3.57[id number] 2.840.1.786854.3.57[id number] 2.16840.1.537576.3.579.2.14898-84-3619Eybhgzb40629039 2.16840.1.795524.3.57[id number] 2.16840.1.694784.3.57[id number] 2.16.840.1.477912.3.57[id number] 2.16.840.1.288308.3.579.2.[id number] 2.16.840.1.651035.3.579.2.469157-60-7752Xpidwgv7967991 2.16.840.1.487243.3.57[id number] 2.16.840.1.902901.3.579.2.529832-97-6867Vidvazt1662680 2.16.840.1.300871.3.57[id number] 2..840.1.951799.3.579.[id number] 2.16.840.1.336781.3.57[id number] 2.16.840.1.759635.3.579.[id number] 2.16.840.1.292040.3.57[id number] 2..840.1.692291.3.57[id number] 2..840.1.759570.3.579.2.727 Social History DateTypeDetailFacilityStart: 04-16-2024 End: 75-01-8440Waaqkim smoking statusEx-smoker (finding)[facility] BellevueStart: 40-29-2254Maeexxr smoking statusSmokeless tobacco user within last 30 daysMarion Hospital Surgery BellevueStart: 07-16-2024 End: 90-36-1710Lif Assigned At BirthMalOur Lady of Mercy HospitalHistory of tobacco useCurrent smokerNOMS HealthcareHistory of tobacco useCigarette Smoker N[facility]S HealthcareStart: 07-08-2024 End: 92-65-7925Arqkosegbn smoked current (pack per day) - Reported0.5NOMS HealthcareHistory of tobacco usePassive smokerNOMS HealthcareStart: 11-16-2023 End: 18-42-6955Fspeokd use and exposureUser of smokeless tobaccoNOMS Healthcare History of tobacco useChews TobaccoNOMS HealthcareStart: 07-08-2024 End: 43-95-4062Senblngeq beverage intakeLifetime non-drinker (finding)[facility] HealthcareDo you belong to any clubs or organizations such as alevism groups, unions, fraternal or athletic groups, or school groups?NoNOMS HealthcareAre you now , , , , never or living with a partner?MarriedNOMS HealthcareHow often to you have a drink containing alcohol?4 or more times a weekNOMS HealthcareHow many standard drinks containing alcohol do you have on a typical day?3 or 4NOMS HealthcareHow often do you have 6 or more drinks on 1 occasion?WeeklyNOMS HealthcareHow hard is it for you to pay for the very basics like food, housing, medical care, and heatingNot very hardNOMS HealthcareDo you feel stress - tense, restless, nervous, or anxious, or unable to sleep at night because yourmind is troubled all the time - these days [OSQ] Only a littleNOMS Healthcare(I/We) worried whether (my/our) food would run out before (I/we) got money to buy more.Never trueNOMS HealthcareStart: 1957 Sex assigned at birthNot on fileNOMS HealthcareHow often do you need to have someone help you when you read instructions, pamphlets, or other written material from your doctor or pharmacy [SILS]NeverNOMS HealthcareSexual OrientationSelect Medical Specialty Hospital - [place] Start: [phone] (finding)[facility] YoungstownTobacco smoking status NHISUnknown if ever smokedOur Lady Of Mercy Hospital Work Phone: Start: [phone] Assigned At [facility]tart: [phone] smoking status NHISNever smoked tobaccoMOAB [facility] Healthcare Goals DatePatient GoalDesired Activity/StatePersonal health goal Functional Status Sxmu[id number] Health Questionnaire 2 item (PHQ- 2) [Reported][facility] HospitalLqbtjtouzk16-11-9037Rdhtmfuxuv StatusN/AExec[facility]10-02-2024Functional StatusN/AExec[facility]08-27-2024Patient Health Questionnaire 2 item (PHQ-2) [Reported][facility] HospitalUisibhydyw62-22-0961Zkpmc score [AUDIT-C]8 07/16/2024 5:31 PM EDT Mychart, GenericChildren's Mercy HospitalJnzeuxrnfd53-54-5481Dwx often do you have a drink containing alcohol?4 or more times a week 07/16/2024 5:31 PM EDT Mychart, Generic 4 or more times a weekChildren's Mercy HospitalKjnycmwsro54-39-5151Eep many standard drinks containing alcohol do you have on a typical day?3 or 4 07/16/2024 5:31 PM EDT Mychart, Generic 3 or 4Children's Mercy HospitalDrmegtulxp88-57-4640Aie often do you have 6 or more drinks on 1 occasion?Weekly 07/16/2024 5:31 PM EDT Mychart, Generic WeeklyChildren's Mercy HospitalTrupqcvyut22-28-8186Yps difficult have these problems made it for you to do your work, take care of things at home, or get along with other people?Not difficult at all 05/23/2024 10:29 AM WILLT Shaikh Acevedo MD Not difficult at allChildren's Mercy HospitalDzjukclnaa88-75-5521Vqlqbiq Health Questionnaire 2 item (PHQ-2) [Reported][facility] HospitalFgzouqluad52-21-6581Xnkngtcuzq StatusN/AFFirelands Regional Medical Center General Surgery Bddkgzsq81-42-1232Qqhffmx Health Questionnaire 2 item (PHQ-2) [Reported][facility] Clinical Notes 04-16-2024 to 08-13-2025 Note Date & KpdwOwdzPimrxidf63-21-3146 Evaluation note* Diagnosis Onset Date Resolution Status Admit Date CAD in [place] artery acuteSeptember 2024 9:29amChronic lower back painacuteSeptember 2024 9:29amEssential hypertensionacuteSeptember 2024 9:29amGERD without esophagitisacuteSeptember 2024 9:29amMorbid obesity due to excess calories acuteSeptember 2024 9:29amOSA (obstructive sleep apnea)acuteSeptember 2024 9:29amType 2 diabetes mellitus without complication, without long- term current usacuteSeptember 2024 9:29amCognitive impairmentacuteOctober 2024 9:13amCAD in [place] arteryacuteOctober 2024 8:56amChronic lower back painacuteOctober 2024 8:56amEssential hypertensionacuteOctober 2024 8:56amMorbid obesity due to excess caloriesacuteOctober 2024 8:56am ZENON (obstructive sleep apnea)acuteOctober 2024 8:56amType 2 diabetes mellitus without complication, without long-term current usacuteOctober 2024 8:56am [facility] Work Phone: 1(100) 394-562107-30-2025 Evaluation note* Diagnosis Onset Date Resolution Status Admit Date Hypersomnia deletedJuly 2024 1:16pmObesitydeletedJuly 2024 1:16pmOSA (obstructive sleep apnea)deletedJuly 2024 1:16pmSnoringdeletedJuly 2024 1:16pmCAD in [place] arteryacuteSeptember 2024 9:29amChronic lower back painacuteSeptember 2024 9:29amEssential hypertensionacuteSeptember 2024 9:29amGERD without esophagitisacuteSeptember 2024 9:29amMorbid obesity due to excess caloriesacuteSeptember 2024 9:29amOSA (obstructive sleep apnea)acuteSeptember 2024 9:29amType 2 diabetes mellitus without complication, without long-term current usacuteSeptember 2024 9:29am [facility] Work Phone: 1(736) 390-770007-30-2025 Evaluation note* Diagnosis Onset Date Resolution Status Admit Date Hypersomnia deletedJuly 2024 1:16pmObesitydeletedJuly 2024 1:16pmOSA (obstructive sleep apnea)deletedJuly 2024 1:16pmSnoringdeletedJuly 2024 1:16pmCAD in [place] arteryacuteSeptember 2024 9:29amChronic lower back painacuteSeptember 2024 9:29amEssential hypertensionacuteSeptember 2024 9:29amGERD without esophagitisacuteSeptember 2024 9:29amMorbid obesity due to excess caloriesacuteSeptember 2024 9:29amOSA (obstructive sleep apnea)acuteSeptember 2024 9:29amType 2 diabetes mellitus without complication, without long-term current usacuteSeptember 2024 9:29am Cognitive impairmentacuteOctober 2024 9:13am [facility] Work Phone: 1(170) 709-219106-17-2025 History of Present illness Narrative* JEREMIAH ABRAMS [...] Hospitalizations in the last year: no Specialist: [employer]ite [employer], Urologist, Neurologist for ZENON HCPOA/Living Will: no [...] arteriosclerosis Current meds: statin, imdur, demarco/hydrochlorothiazide, b dneice, asa Cardiology: [facility] Type 2 diabetes mellitus without complication, without [...] Morbid (severe) obesity due to excess calories ([facility]) Discussed with patient their BMI (actual, verses [...] that supplies your machine and tubing/filters etc: [facility] Doctor that manages your ZENON: Dr Og [...] Morbid (severe) obesity due to excess calories ([facility]) Discussed with patient their BMI (actual, verses recommended). We have also discussed lifestyle modifications: attempts to perform physical activity as chronic conditions allow, also to monitor dietary intake: increasing protein/fruits/veggies and lowering carb intake (unless contraindicated). Limit sodas, juices, and sugary drinks. * eLla Solorzano NP - 05/13/2025 6:15 AM EDTAssociated Problem(s): Coronary arteriosclerosis Current meds: statin, imdur, demarco/hydrochlorothiazide, b denice, asa Cardiology: [facility] * Lela Solorzano NP - 05/13/2025 [...] your ZENON: Dr Og documented in this encounterChildren's Mercy HospitalMwpbshflej58-62-0052 Instructions* Patient Instructions* Lela Solorzano NP - 05/13/2025 10:[address] Og's office for an appointment: [phone] documented in this encounterChildren's Mercy HospitalIzqjpviwwy63-08-6224 NotePatient Education Urology Hypogonadism, Male Male hypogonadism [...] Follow these instructions at home: ??? Take funq-bgy-ewgiemu and prescription medicines only as told by [...] sure you discuss any (more content not included)...[facility]04-18-2025 NoteUT Cardiology - [facility] Subjective Funmi Julio is a 69 y.o. year old male patient being seen for 1 year follow up. Patinet denies chest pain, or leg swelling . Patient complains of SOB, dyspnea with exertion, lower back pain. Patient had recent labs at [facility] on 03/12/2025 Patient Active Problem List Diagnosis Acute sinusitis Anemia Benign essential hypertension Coronary arteriosclerosis Cough Depressive disorder Hyperlipidemia Hypertensive disorder Impaired fasting glucose Neck sprain Pain in joint involving ankle and foot Precordial pain Solitary pulmonary nodule Chronic GERD Constipation Dyslipidemia Obesity (BMI 30-39.9) Rectal bleeding Sleep apnea Type 2 diabetes mellitus without complication, without long-term current use of insulin ([facility]/HCC) Acquired buried penis Calcified lymph nodes [...] followed by his primary care physician and telephone quotation clerk. Today he reports that he has [...] in the morning., Di (more content not included)...[facility]01-22-2025 Hospital Discharge instructions Patient Education 12/18/2024 12:03:33 [...] therapy. Follow these instructions at home: Take frip-fzr-bzezmkg and prescription medicines only as told by [...] provider. Document Revised: 07/15/2021 Document Reviewed: 07/15/2021 [employer] Patient Education 2023 [employer]olar. Follow Up Care 08/28/2024 11:12:51 With:Davey PARISH, ODALYS Arrieta, URO Address: When:Within 3 Month(s) Comments:[facility] 01-22-2025 NotePatient Education Urology Hypogonadism, Male Male [...] Follow these instructions at home: ??? Take rceo-adl-hqopywn and prescription medicines only as told by [...] sure you discuss any (more content not included)...[facility]12-12-2024 History of Present illness Narrative* Chioma Hardy NP - 11/07/2024 9:48 AM ESTAssociated Problem(s): BMI 40.0-44.9, adult ([facility]) Discussed with patient their BMI (actual, [...] 11/07/2024 9:47 AM ESTAssociated Problem(s): HTN (hypertension) ([facility]) Currently taking amlodipine 10mg Isosorbide Lisinopril-hydrochlorothiazide Metoprolol Does not check BP at home; Denies orthostatic changes, dizziness, cough, shortness of breath, swelling in extremities. Continue current regimen. Given BP log, advised pt to record BP and bring log back with them to next visit. * Chioma Hardy NP - 11/07/2024 9:47 AM ESTAssociated Problem(s): Hyperlipidemia ([facility]/HCC) Currently taking Atorvastatin 40mg Denies any myalgias. Continue current regimen. * Chioma Hardy NP - 11/07/2024 9:47 AM ESTAssociated Problem(s): Type 2 diabetes mellitus without complication, without long-term current useof insulin (CMS/[facility]) Currently taking Metformin Semaglutide Has been [...] Dr. Lucero Pulmonology- Dr. Morrison Cardiology- Dr. Moukarbel HTN: Currently taking amlodipine 10mg Isosorbide Lisinopril-hydrochlorothiazide [...] R ALBUMIN GLOBULIN RATIO 0.8 Resulting Agency [facility] DMII: Currently taking Metformin Semaglutide Has [...] omeprazole (PriLOSEC) [address] capsule Hyperlipidemia ([facility]) Currently taking Atorvastatin 40mg Denies any myalgias. Continue current regimen. Persistent depressive disorder ([facility]) (Chronic) Relevant Medications PARoxetine (Paxil) 40 MG tablet Type 2 diabetes mellitus without complication, without long-term current use of insulin ([facility]) -Primary (Chronic) Currently taking Metformin Semaglutide Has [...] metFORMIN (Glucophage) 850 MG tablet HTN (hypertension) ([facility]) Currently taking amlodipine 10mg Isosorbide Lisinopril-hydrochlorothiazide [...] obstructive pulmonary disease based on initial evaluation ([facility]) Relevant Medications albuterol HFA (Ventolin HFA) 90 mcg/act inhaler fexofenadine (Lamar Allergy) 180 MG tablet BMI 40.0-44.9, adult ([facility]) Discussed with patient their BMI (actual, [...] Diagnoses Acute bronchitis with wheezing Hyperlipidemia, unspecified (CMS/HCC) Relevant Medications atorvastatin (Lipitor) 40 MG tablet Essential (primary) hypertension (CMS/HCC) Relevant Medications lisinopril-hydroCHLOROthiazide 20-12.5 MG tablet Major depressive disorder, recurrent, mild (HCC) (CMS/HCC) documented in this [facility]12-05-2024 Telephone encounter Note* Telephone Encounter - Krystal Dickson - 10/31/2024 11:28 AM EST Patient states he did not know that you lowered his meds to 1 time a day instead of 2 and he's running out of lisinopril now [facility] HospitalJhidjobvwt80-10-4372 Miscellaneous Notes* Telephone Encounter - Krystal Dickson - 10/31/2024 11:28 AM EST Patient states he did not know that you lowered his meds to 1 time a day instead of 2 and he's running out of lisinopril now documented in this [facility]10-09-2024 History of Present illness Narrative* [...] reflexes are 2+ and symmetric throughout. Coordination: Nvdxrl-ek-luev testing and rapid alternating movements are normal [...] plan, and return instructions documented in this encounterChildren's Mercy HospitalQrnarbnhkm00-11-4450 Hospital Discharge instructions Patient Education 08/28/2024 11:12:34 [...] Follow these instructions at home: Medicines Take ceds-yla-zhhbzhg and prescription medicines only as told by [...] provider. Document Revised: 02/09/2022 Document Reviewed: 02/09/2022 [employer] Patient Education 2023 [employer]Ksolar. Follow Up Care 08/27/2024 13:33:54 With:Davey PRAISH, Tania Angel, URL, URO Address: [address] [place] [address] [phone] When: Unknown Comments:6 mos (possible T level) [facility] 10-02-2024 NotePatient Education Urology Erectile Dysfunction Erectile [...] these instructions at home: Medicines ? Take ujeb-uhn-zdoqyxh and prescription medicines only as told by [...] nicotine or tobacco. These (more content not included)...[facility]09-19-2024 History of Present illness Narrative* Deshawn Terrell, [...] has helped curb his cravings. Reformed smoker. [place] language [place]. Completed an associate's degree in automotive work. 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 Also has long history of chemical exposure [...] design >16th %ile. Motor/Speed of Processing: Right-handed. Aluminum Welder strength 16th %ile with right- hand, 21st [...] Immediate recall for a variety of geometric pvwyoha50pt %ile, delayed 82nd %ile. Recognition 51-75th %ile. [...] of this individual. Please contact me with [employer] at [phone]. documented in this encounterChildren's Mercy HospitalKbmysijgnk64-36-9784 History of Present illness Narrative* Deshawn Terrell, [...] ice falling from 75 feet onto pat ient's head resulting in LOC but no residual [...] has helped curb his cravings. Reformed smoker. [place] language [place]. Completed an Associates degree in automotive work. 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 Please contact me with [employer] at [phone]. documented in this encounterChildren's Mercy HospitalFrxzvigvba12-75-0915 History of Present illness Narrative* Chioma Hardy NP - 07/23/2024 12:19 PM EDTAssociated Problem(s): Chronic GERD Taking Omeprazole 20mg Has been taking for 20 years. Feels symptoms are well controlled at this time. Declines EGD at this time- will revisit at next OV. Continue with Prilosec. * Chioma Hardy NP - 07/23/2024 12:18 PM EDTAssociated Problem(s): Mild cognitive impairment Following with Neurology- Sees Dr. Lucero and was referred to additional specialisat @ [facility] Neurology- Appointment on 07/30/2024; MRI completed on 07/15/2024. * Chioma Hardy NP - 07/23/2024 12:17 PM EDTAssociated Problem(s): Suspected chronic obstructive pulmonary disease based on initial evaluation ( CMS/[facility]) Follows Dr. Morrison with Pulmonology Feels symptoms [...] without complication, without long-term current useof insulin ([facility]) Most recent labs: hemoglobin A1C 6.3% Down [...] R ALBUMIN GLOBULIN RATIO 0.8 Resulting Agency [facility] TB TB TB DMII: Most recent labs: hemoglobin A1C 6.3% Down from 6.5%. 0 Result Notes Component Ref Range & Units 8 d ago 5 mo ago GLYCOHEMOGLOBIN A1C 4.5 - 6.2 % 6.3 High 6.5 High CM Comment: ADA RECOMMENDED LIMIT 4.0 - 6.0 ADA THERAPEUTIC TARGET < 7.0 ACTION SUGGESTED > 7.0 ESTIMATED AVERAGE GLUCOSE mg/dL 134 140 Resulting Agency [facility] Average FSBS range from patient does [...] essential hypertension (CMS/HCC) (Chronic) Follows Cardiology- Dr. Gao Isosorbide 60mg Lisinopril- hydrochlorothiazide 20-12.5mg Amlodipine 10mg Denies orthostatic changes Admits: Edema to BLE 2-3 times per week Continue current regimen Chronic GERD (Chronic) Taking Omeprazole 20mg Has been taking for 20 years. Feels symptoms are well controlled at this time. Declines EGD at this time- will revisit at next OV. Continue with Prilosec. Hyperlipidemia ([facility]) Atorvastatin 40mg Denies myalgias Continue Lipitor Solitary pulmonary nodule Follows Pulmonology- Dr. Morrison Type 2 diabetes mellitus without complication, without long-term current use of insulin ([facility]) -Primary (Chronic) Most recent labs: hemoglobin A1C [...] obstructive pulmonary disease based on initial evaluation ([facility]) Follows Dr. Morrison with Pulmonology Feels symptoms are well managed currently. Continue current regimen. Mild cognitive impairment Following with Neurology- Sees Dr. Lucero and was referred to additional specialisat @ [facility]- Appointment on 07/30/2024; MRI completed on [...] HFA) 90 mcg/act inhaler documented in this encounterChildren's Mercy HospitalFzaozzcruh93-03-2832 Instructions* Patient Instructions* Chioma Hardy NP - [...] carbohydrates, and simple sugars. documented in this encounterChildren's Mercy HospitalNlbjbpsnpr32-03-6955 NoteChief Complaint consultation for colonoscopy HPI Staff [...] and Brother. Primary oscar (more content not included)...[facility]:Result Comment: Electronically Signed By: MARTÍN PARISH, Funmi Suazo\Date and Time Signed: 04/16/24 16:19 EDTEvaluation + Plan note No data available for this section [facility] General Surgery [place] Evaluation + Plan note Future Appointments Appointment Date:08/28/2024 10:15:00 AM Scheduled Provider:Tania Mariscal MD Location:[facility] Appointment Type:URO New Patient [facility] evaluation + Plan note Future Appointments Appointment Date:03/05/2025 09:45:00 AM Scheduled Provider:Tania Mariscal MD Location:[facility] Appointment Type:URO Office Visit Diagnostic Tests Pending * Testosterone Level Total 08/28/24 [facility] evaluation + Plan note Future Appointments Appointment Date:03/12/2025 08:30:00 AM Scheduled Provider: Location:[facility] Appointment Type:URO Nurse Visit Appointment Date:03/19/2025 10:00:00 AM Scheduled Provider:Tania Mariscal MD Location:[facility] Appointment Type:URO Office Visit Future Scheduled Tests Laboratory* PSA Total 03/18/25 * Hematocrit 03/18/25 * Testosterone Level Total 03/18/25 [facility] evaluation + Plan note Future Appointments Appointment Date:03/19/2025 10:00:00 AM Scheduled Provider:Tania Mariscal MD Location:[facility] Appointment Type:URO Office Visit Diagnostic Tests Pending * Testosterone Level Total 03/12/25 Future Scheduled Tests Laboratory* Hematocrit 03/18/25 [facility] Evaluation note* Diagnosis Cognitive impairment- Primary Unspecified persistent mental disorders due to conditions classified elsewhere documented in this encounter [facility] HealthcareEvaluation note* Diagnosis Solitary pulmonary nodule- Primary Benign essential hypertension ([facility]) Essential hypertension, benign Chronic GERD Type 2 diabetes mellitus without complication, without long-term current use of insulin ([facility]) Persistent depressive disorder ([facility]) Hyperlipidemia, unspecified hyperlipidemia type ([facility]) Morbid (severe) obesity due to excess calories (E66.01) Primary hypertension ([facility]) Unspecified essential hypertension Coronary arteriosclerosis ([facility]) Coronary atherosclerosis of unspecified type of vessel, [place] or graft Obstructive sleep apnea syndrome Obstructive sleep apnea (adult) (pediatric) Suspected chronic obstructive pulmonary disease based on initial evaluation ([facility]) Skin mole Solitary pulmonary nodule- Primary Obstructive sleep apnea syndrome Obstructive sleep apnea (adult) (pediatric) Primary hypertension ([facility]) Unspecified essential hypertension Type 2 diabetes mellitus without complication, without long-term current use of insulin ([facility]) Hyperlipidemia, unspecified hyperlipidemia type ([facility]) Type 2 diabetes mellitus without complication, without long-term current use of insulin ([facility])- Primary Mild cognitive impairment Mild cognitive impairment, so stated Primary hypertension ([facility]) Unspecified essential hypertension Solitary pulmonary nodule Dyslipidemia (CMS/HCC) Other and unspecified hyperlipidemia Coronary arteriosclerosis (CMS/HCC) Coronary atherosclerosis of unspecified type of vessel, [place] or graft BMI 40.0-44.9, adult ([facility]) Type 2 diabetes mellitus without complication, without long-term current use of insulin (CMS/[facility])- Primary Benign essential hypertension (CMS/HCC) Essential hypertension, benign Chronic GERD Suspected chronic obstructive pulmonary disease based on initial evaluation ([facility]) Mild cognitive impairment Mild cognitive impairment, so stated Acute bronchitis with wheezing Mixed hyperlipidemia (CMS/[facility]) Mixed hyperlipidemia Cerumen debris on tympanic membrane of both ears Solitary pulmonary nodule Acquired buried penis Essential (primary) hypertension (CMS/[facility]) Unspecified essential hypertension documented in this encounter [facility] HealthcareEvaluation note* Diagnosis Solitary pulmonary nodule- Primary Benign essential hypertension (CMS/HCC) Essential hypertension, benign Chronic GERD Type 2 diabetes mellitus without complication, without long-term current use of insulin (CMS/[facility]) Persistent depressive disorder (CMS/[facility]) Hyperlipidemia, unspecified hyperlipidemia type (CMS/[facility]) Morbid (severe) obesity due to excess calories (E66.01) Primary hypertension (CMS/HCC) Unspecified essential hypertension Coronary arteriosclerosis (CMS/[facility]) Coronary atherosclerosis of unspecified type of vessel, [place] or graft Obstructive sleep apnea syndrome Obstructive sleep apnea (adult) (pediatric) Suspected chronic obstructive pulmonary disease based on initial evaluation ([facility]) Skin mole Solitary pulmonary nodule- Primary Obstructive sleep apnea syndrome Obstructive sleep apnea (adult) (pediatric) Primary hypertension (CMS/HCC) Unspecified essential hypertension Type 2 diabetes mellitus without complication, without long-term current use of insulin (CMS/[facility]) Hyperlipidemia, unspecified hyperlipidemia type (CMS/[facility]) Type 2 diabetes mellitus without complication, without long-term current use of insulin (CMS/[facility])- Primary Mild cognitive impairment Mild cognitive impairment, so stated Primary hypertension (CMS/[facility]) Unspecified essential hypertension Solitary pulmonary nodule Dyslipidemia (CMS/HCC) Other and unspecified hyperlipidemia Coronary arteriosclerosis (CMS/HCC) Coronary atherosclerosis of unspecified type of vessel, [place] or graft BMI 40.0-44.9, adult ([facility]) Type 2 diabetes mellitus without complication, without long-term current use of insulin ([facility])- Primary Benign essential hypertension (CMS/HCC) Essential hypertension, benign Chronic GERD Suspected chronic obstructive pulmonary disease based on initial evaluation ([facility]/HCC) Mild cognitive impairment Mild cognitive impairment, so stated Acute bronchitis with wheezing Mixed hyperlipidemia (CMS/HCC) Mixed hyperlipidemia Cerumen debris on tympanic membrane of both ears Solitary pulmonary nodule Acquired buried penis Type 2 diabetes mellitus without complication, without long-term current use of insulin (CMS/[facility])- Primary Mixed hyperlipidemia (CMS/HCC) Mixed hyperlipidemia Primary hypertension (CMS/HCC) Unspecified essential hypertension BMI 40.0-44.9, adult (CMS/[facility]) Acute bronchitis with wheezing Hyperlipidemia, unspecified (CMS/HCC) Essential (primary) hypertension (CMS/HCC) Unspecified essential hypertension Major depressive disorder, recurrent, mild (HCC) (CMS/[facility]) Major depressive disorder, recurrent episode, mild Chronic GERD Persistent depressive disorder (CMS/[facility]) Suspected chronic obstructive pulmonary disease based on initial evaluation ([facility]) documented in this encounter [facility] HealthcareEvaluation note* Diagnosis Solitary pulmonary nodule- Primary Benign essential hypertension (CMS/HCC) Essential hypertension, benign Chronic GERD Type 2 diabetes mellitus without complication, without long-term current use of insulin (CMS/[facility]) Persistent depressive disorder (CMS/[facility]) Hyperlipidemia, unspecified hyperlipidemia type (CMS/[facility]) Morbid (severe) obesity due to excess calories (E66.01) Primary hypertension (CMS/HCC) Unspecified essential hypertension Coronary arteriosclerosis (CMS/HCC) Coronary atherosclerosis of unspecified type of vessel, [place] or graft Obstructive sleep apnea syndrome Obstructive sleep apnea (adult) (pediatric) Suspected chronic obstructive pulmonary disease based on initial evaluation ([facility]) Skin mole Solitary pulmonary nodule- Primary Obstructive sleep apnea syndrome Obstructive sleep apnea (adult) (pediatric) Primary hypertension (CMS/HCC) Unspecified essential hypertension Type 2 diabetes mellitus without complication, without long-term current use of insulin (CMS/[facility]) Hyperlipidemia, unspecified hyperlipidemia type (CMS/HCC) Type 2 diabetes mellitus without complication, without long-term current use of insulin (CMS/HCC)- Primary Mild cognitive impairment Mild cognitive impairment, so stated Primary hypertension (CMS/HCC) Unspecified essential hypertension Solitary pulmonary nodule Dyslipidemia (CMS/HCC) Other and unspecified hyperlipidemia Coronary arteriosclerosis (CMS/HCC) Coronary atherosclerosis of unspecified type of vessel, [place] or graft BMI 40.0-44.9, adult ([facility]) Type 2 diabetes mellitus without complication, without long-term current use of insulin (CMS/[facility])- Primary Benign essential hypertension (CMS/HCC) Essential hypertension, benign Chronic GERD Suspected chronic obstructive pulmonary disease based on initial evaluation ([facility]) Mild cognitive impairment Mild cognitive impairment, so stated Acute bronchitis with wheezing Mixed hyperlipidemia ([facility]) Mixed hyperlipidemia Cerumen debris on tympanic membrane of both ears Solitary pulmonary nodule Acquired buried penis Type 2 diabetes mellitus without complication, without long-term current use of insulin ([facility])- Primary Mixed hyperlipidemia ([facility]) Mixed hyperlipidemia Primary hypertension ([facility]) Unspecified essential hypertension BMI 40.0-44.9, adult ([facility]) Acute bronchitis with wheezing Hyperlipidemia, unspecified ([facility]) Essential (primary) hypertension ([facility]) Unspecified essential hypertension Major depressive disorder, recurrent, mild (HCC) ([facility]) Major depressive disorder, recurrent episode, mild Chronic GERD Persistent depressive disorder ([facility]) Suspected chronic obstructive pulmonary disease based on initial evaluation ([facility]) Type 2 diabetes mellitus without complication, without long-term current use of insulin ([facility]) documented in this encounter [facility]* Diagnosis Type 2 diabetes mellitus without complication, without long-term current use of insulin ([facility])- Primary Benign essential hypertension ([facility]) Essential hypertension, benign Chronic GERD Suspected chronic obstructive pulmonary disease based on initial evaluation ([facility]) Mild cognitive impairment Mild cognitive impairment, so stated Acute bronchitis with wheezing Mixed hyperlipidemia ([facility]) Mixed hyperlipidemia Cerumen debris on tympanic membrane of both ears Solitary pulmonary nodule Acquired buried penis documented in this encounter [facility]* Diagnosis Mild cognitive impairment- Primary Mild cognitive impairment, so stated Memory loss ZENON on CPAP Depression, unspecified depression type ([facility]) History of alcohol abuse Nondependent alcohol abuse, in remission documented in this encounter [facility]* Diagnosis Memory loss- Primary ZENON on CPAP Depression, unspecified depression type ([facility]) History of alcohol abuse Nondependent alcohol abuse, in remission documented in this encounter [facility]* Diagnosis Type 2 diabetes mellitus without complication, without long-term current use of insulin ([facility]) documented in this encounter [facility]* Diagnosis Solitary pulmonary nodule- Primary Benign essential hypertension Essential hypertension, benign Chronic GERD Type 2 diabetes mellitus without complication, without long-term current use of insulin ([facility]) Persistent depressive disorder Hyperlipidemia, unspecified hyperlipidemia type Morbid (severe) obesity due to excess calories (E66.01) Primary hypertension Unspecified essential hypertension Coronary arteriosclerosis Coronary atherosclerosis of unspecified type of vessel, [place] or graft Obstructive sleep apnea syndrome Obstructive sleep apnea (adult) (pediatric) Suspected chronic obstructive pulmonary disease based on initial evaluation ([facility]) Skin mole Solitary pulmonary nodule- Primary Obstructive sleep apnea syndrome Obstructive sleep apnea (adult) (pediatric) Primary hypertension Unspecified essential hypertension Type 2 diabetes mellitus without complication, without long-term current use of insulin ([facility]) Hyperlipidemia, unspecified hyperlipidemia type Type 2 diabetes mellitus without complication, without long-term current use of insulin ([facility])- Primary Mild cognitive impairment Mild cognitive impairment, so stated Primary hypertension Unspecified essential hypertension Solitary pulmonary nodule Dyslipidemia Other and unspecified hyperlipidemia Coronary arteriosclerosis Coronary atherosclerosis of unspecified type of vessel, [place] or graft BMI 40.0-44.9, adult ([facility]) Type 2 diabetes mellitus without complication, without long-term current use of insulin ([facility])- Primary Benign essential hypertension Essential hypertension, benign Chronic GERD Suspected chronic obstructive pulmonary disease based on initial evaluation ([facility]) Mild cognitive impairment Mild cognitive impairment, so stated Acute bronchitis with wheezing Mixed hyperlipidemia Mixed hyperlipidemia Cerumen debris on tympanic membrane of both ears Solitary pulmonary nodule Acquired buried penis Type 2 diabetes mellitus without complication, without long-term current use of insulin ([facility])- Primary Mixed hyperlipidemia Mixed hyperlipidemia Primary hypertension Unspecified essential hypertension BMI 40.0-44.9, adult ([facility]) Acute bronchitis with wheezing Hyperlipidemia, unspecified Essential (primary) hypertension Unspecified essential hypertension Major depressive disorder, recurrent, mild Major depressive disorder, recurrent episode, mild Chronic GERD Persistent depressive disorder Suspected chronic obstructive pulmonary disease based on initial evaluation ([facility]) Benign essential hypertension- Primary Essential hypertension, benign Pulmonary fibrosis, unspecified ([facility]) Morbid (severe) obesity due to excess calories ([facility]) Body mass index (BMI) 40.0-44.9, adult ([facility]) Obstructive sleep apnea syndrome Obstructive sleep apnea (adult) (pediatric) Coronary arteriosclerosis Coronary atherosclerosis of unspecified type of vessel, [place] or graft Chronic GERD Type 2 diabetes mellitus without complication, without long-term current use of insulin ([facility]) Mixed hyperlipidemia Mixed hyperlipidemia Episode of recurrent [...] Coronary atherosclerosis of unspecified type of vessel, [place] or graft Morbid (severe) obesity due to excess calories ([facility]) Type 2 diabetes mellitus without complication, without long-term current use of insulin ([facility]) Primary hypertension Unspecified essential hypertension Hyperlipidemia, unspecified Suspected chronic obstructive pulmonary disease based on initial evaluation ([facility]) documented in this encounter [facility] HealthcareEvaluation note* Diagnosis Solitary pulmonary nodule- Primary Benign essential hypertension Essential hypertension, benign Chronic GERD Type 2 diabetes mellitus without complication, without long-term current use of insulin ([facility]) Persistent depressive disorder Hyperlipidemia, unspecified hyperlipidemia type Morbid (severe) obesity due to excess calories (E66.01) Primary hypertension Unspecified essential hypertension Coronary arteriosclerosis Coronary atherosclerosis of unspecified type of vessel, [place] or graft Obstructive sleep apnea syndrome Obstructive sleep apnea (adult) (pediatric) Suspected chronic obstructive pulmonary disease based on initial evaluation ([facility]) Skin mole Solitary pulmonary nodule- Primary Obstructive sleep apnea syndrome Obstructive sleep apnea (adult) (pediatric) Primary hypertension Unspecified essential hypertension Type 2 diabetes mellitus without complication, without long-term current use of insulin ([facility]) Hyperlipidemia, unspecified hyperlipidemia type Type 2 diabetes mellitus without complication, without long-term current use of insulin ([facility])- Primary Mild cognitive impairment Mild cognitive impairment, so stated Primary hypertension Unspecified essential hypertension Solitary pulmonary nodule Dyslipidemia Other and unspecified hyperlipidemia Coronary arteriosclerosis Coronary atherosclerosis of unspecified type of vessel, [place] or graft BMI 40.0-44.9, adult ([facility]) Type 2 diabetes mellitus without complication, without long-term current use of insulin ([facility])- Primary Benign essential hypertension Essential hypertension, benign Chronic GERD Suspected chronic obstructive pulmonary disease based on initial evaluation ([facility]) Mild cognitive impairment Mild cognitive impairment, so stated Acute bronchitis with wheezing Mixed hyperlipidemia Mixed hyperlipidemia Cerumen debris on tympanic membrane of both ears Solitary pulmonary nodule Acquired buried penis Type 2 diabetes mellitus without complication, without long-term current use of insulin ([facility])- Primary Mixed hyperlipidemia Mixed hyperlipidemia Primary hypertension Unspecified essential hypertension BMI 40.0-44.9, adult ([facility]) Acute bronchitis with wheezing Hyperlipidemia, unspecified Essential (primary) hypertension Unspecified essential hypertension Major depressive disorder, recurrent, mild Major depressive disorder, recurrent episode, mild Chronic GERD Persistent depressive disorder Suspected chronic obstructive pulmonary disease based on initial evaluation ([facility]) Benign essential hypertension- Primary Essential hypertension, benign Pulmonary fibrosis, unspecified (HCC) Morbid (severe) obesity due to excess calories ([facility]) Body mass index (BMI) 40.0-44.9, adult ([facility]-HCC) Obstructive sleep apnea syndrome Obstructive sleep apnea (adult) (pediatric) Coronary arteriosclerosis Coronary atherosclerosis of unspecified type of vessel, [place] or graft Chronic GERD Type 2 diabetes [...] Coronary atherosclerosis of unspecified type of vessel, [place] or graft Morbid (severe) obesity due to excess calories ([facility]) Type 2 diabetes mellitus without complication, without long-term current use of insulin (HCC) Primary hypertension Unspecified essential hypertension Hyperlipidemia, unspecified Suspected chronic obstructive pulmonary disease based on initial evaluation ([facility]) Hyperlipidemia, unspecified documented in this encounter [facility]Evaluation noteNo assessment information availableOur [facility] Of Mer[facility] Work Phone: Hospital Discharge instructions No data available for this section [facility] Hospital Discharge instructionsAmbulatory Orders* Referral to PT (Nima Flores) Time Frame: 08/13/25, Location: [facility] Work Phone: Progress note No data available for this section [facility] Reason for referral (narrative)* Consultation (Routine) - Pending ReviewSpecialtyDiagnoses / ProceduresReferred By ContactReferred To ContactUrology Diagnoses Acquired buried penis Procedures [place] OFFICE/OUTPATIENT NEW HIGH MDM 60 MINUTES Chioma Hardy NP [address] [place] [phone] Maximilian Mata MD [address] [place] [address] Referral IDStatusReasonStart DateExpiration DateVisits RequestedVisits [id number] Specialty Services Required / Scheduling Instructions Please include OV note from 07/23 [facility] HealthcareReason for referral (narrative)No reason for referral information availableOur Lady Of Mercy Hospital Work Phone: Reason for visit Narrative* Consultation (Routine) - ClosedSpecialtyDiagnoses / ProceduresReferred By ContactReferred To Contact Psychology / Neurology Diagnoses Mild cognitive impairment Procedures [place] OFFICE/OUTPATIENT NEW HIGH MDM 60 MINUTES Tania Lucero DO [address] [place] [address] Deshawn Terrell, PhD [address] [place] [phone] Referral IDStatusReasonStart DateExpiration DateVisits RequestedVisits [id number] Specialty Services Required / [facility] Healthcare Summary Purpose Family History No Family History Records Found Relationship Condition Age at Onset Recorded Date/T annemarie father Unknown motherDeceasedUnknownDiabetes mellitusUnknownHeart diseaseUnknownHistory of strokeUnknown Advance Directives No Advanced Directives Records Found Advance Directive Response Recorded Date/ Time Advance Directives No June 25 1:16pm Reason for Referral SpecialtyDiagnoses / ProceduresReferred By ContactReferred To Contact Diagnoses Type 2 diabetes mellitus without complication, without long-term current use of insulin ([facility]) Chioma Hardy NP [address] [place] [phone] Referral IDStatusReasonStart DateExpiration DateVisits RequestedVisits [id number] Chief Complaint and Reason for Visit Chief [...] June 25, 2025 1:16 pm CAD in [place] artery August 13 9:29am Chronic lower back pain August 13, 2025 9:29am Essential hypertension August 13, 2 025 9:29am GERD without esophagitis August 13, 2025 9:29am Morbid obesity due to excess calories Se ptember 2024 9:29am ZENON (obstructive sleep apnea) August 13, 2025 9:29am Type 2 diabetes mellitus wit hout complication, without long-term current August 13, 2025 9:29am Chief Complaint Admit Date Sleep F/u June 25, 2025 1:16 pm Established Patient August 13, 2025 9:29am 1 year F.U *with ch* September 03, 2025 9 :13am Reason for Visit Admit Date Hypersomnia June 25, 2025 1:16 pm Obesity June 25, 2025 1:16 pm ZENON (obstructive sleep apnea) June 25, 2025 1:16pm Snoring June 25, 2025 1:16 pm CAD in [place] artery August 13 9:29am Chronic lower back [...] Cognitive impairment September 03, 2025 9 :13am Chief Complaint Admit Date Established Patient August 13, 2025 9:29am 1 year F.U *with ch* September 03, 2025 9 :13am 6W September 25, 2025 8 :56am Reason for Visit Admit Date CAD in [place] artery August 13 9:29am Chronic lower back [...] September 03, 2025 9 :13am CAD in [place] artery September 25, 2025 8:56am Chronic lower back pain September 25 8:56am Essential hypertension September 25 8:56am Morbid obesity due to excess calories Oc tober 2024 8:56am ZENON (obstructive sleep apnea) September 252024 8:56am Type 2 diabetes mellitus wit hout complication, without long-term current us September 25, 2025 8:56am Additional Source Comments (unrecognized sect ion and content) No Status Records FoundNo Status Records FoundNo Status Records FoundNo Status Records FoundNo Status Records FoundNo Status Records FoundNo Status Records FoundNo Status Records Found INFORMATION SOURCE (unrecogn ized section and content) DATE CREATED AUTHOR 07/03/2022 [facility] DATE CREATED AUTHOR AUTHOR'S ORGANIZ ATION 03/15/2025 [facility] DATE CREATED AUTHOR AUTHOR'S ORGANIZ ATION 03/21/2025 [facility] DATE CREATED AUTHOR AUTHOR'S ORGANIZ ATION 04/07/2025 [facility] DATE CREATED AUTHOR AUTHOR'S ORGANIZ ATION 05/15/2025 [facility] DATE CREATED AUTHOR AUTHOR'S ORGANIZ ATION 09/26/2025 [facility] DATE CREATED AUTHOR AUTHOR'S ORGANIZ ATION 10/03/2025 [facility] Patient Care team informatio n (unrecognized section and content) Team MemberRelationshipSpecialtyStart DateEnd Date Rachid Barillas MD [address] [place] [address] PCP - [employer]10/27/23 Rachid Barillas MD [address] [place] [address] PCP - [facility] Medicine07/23/24 Chioma Hardy, DEX [address] [place] [address] [facility]07/01/24Team MemberRelationshipSpecialtyStart DateEnd Date Rachid Barillas MD [address] [place] [address] PCP - [employer]/27/23 Rachid Barillas MD [address] [place] [address] PCP - [facility]07/23/24 Chioma Hardy, COMPUTER CONSOLE OPERATOR [address] [place] [address] [facility]07/01/24Team MemberRelationshipSpecialtyStart DateEnd Date Rachid Barillas MD [address] [place] [address] PCP - [employer]/27/23 Rachid Barillas MD [address] [place] [address] PCP - [facility]07/23/24 Chioma Hardy, DEX [address] [place] [address] [facility]07/01/24Team MemberRelationshipSpecialtyStart DateEnd Date Rachid Barillas MD [address] [place] [address] PCP - [employer]10/27/23 Rachid Barillas MD [address] [place] [address] PCP - [facility]07/23/24 Chioma Hardy NP [address] [place] [address] [facility]07/01/24Team MemberRelationshipSpecialtyStart DateEnd Date Rachid Barillas MD [address] [place] [address] PCP - [employer]10/27/23 Rachid Barillas MD [address] [place] [address] PCP - [facility]07/23/24 Chioma Hardy NP [address] [place] [address] [facility]07/01/24Team MemberRelationshipSpecialtyStart DateEnd Date Rachid Barillas MD [address] [place] [address] PCP - [employer]10/27/23 Rachid Barillas MD [address] [place] [address] PCP - [facility]07/23/24 Chioma Hardy, DEX [address] [place] [address] [facility]07/01/24Team MemberRelationshipSpecialtyStart DateEnd Date Rachid Barillas MD [address] [place] [address] [facility] Rachid Barillas MD [address] [place] [address] PCP - [facility]07/23/24 Chioma Hardy, COMPUTER CONSOLE OPERATOR [address] [place] [address] [facility]07/01/24Team MemberRelationshipSpecialtyStart DateEnd Date Rachid Barillas MD [address] [place] [address] PCP - [employer]10/27/23 Rachid Barillas MD [address] [place] [address] [facility]07/23/24 Chioma Hardy NP [address] [place] [address] [facility]07/01/24Team MemberRelationshipSpecialtyStart DateEnd Date Rachid Barillas MD [address] [place] [address] PCP - [employer]10/27/23 Rachid Barillas MD [address] [place] [address] PCP - [facility]07/23/24 Chioma Hardy NP [address] [place] [address] [facility]07/01/24Team MemberRelationshipSpecialtyStart DateEnd Date Rachid Barillas MD [address] [place] [address] [facility]/23 Rachid Barillas MD [address] [place] [address] PCP - [facility]07/23/24 Chioma Hardy NP [address] [place] [address] [facility]07/01/24Team MemberRelationshipSpecialtyStart DateEnd Date Rachid Barillas MD [address] [place] [address] PCP - [employer]10/27/23 Rachid Barillas MD [address] [place] [address] [facility] - [facility]07/23/24 Chioma Hardy NP [address] [place] [address] [facility]07/01/24Team MemberRelationshipSpecialtyStart DateEnd Date Rachid Barillas MD [address] [place] [address] PCP - [employer]10/27/23 Rachid Barillas MD [address] [place] [address] [facility] - [facility]07/[facility]/24 Cihoma Hardy, COMPUTER CONSOLE OPERATOR [address] [place] [address] [facility]07/01/24Team MemberRelationshipSpecialtyStart DateEnd Date Rachid Barillas MD [address] [place] [address] PCP - [employer]10/27/23 Rachid Barillas MD [address] [place] [address] [facility]/24 Chioma Hardy, DEX [address] [place] [address] [facility]07/01/24Team MemberRelationshipSpecialtyStart DateEnd Date Rachid Barillas MD [address] [place] [address] PCP - [facility]07/23/24 Shaikh Acevedo MD [address] [place] [address] PCP - [facility]10/27/23 Chioma Hardy NP [facility]07/01/24Team MemberRelationshipSpecialtyStart DateEnd Date Rachid Barillas MD [address] [place] [address] PCP - [facility]07/23/24 Shaikh Acevedo MD [address] [place] [address] PCP - [employer]10/27/23 Chioma Hardy NP [facility]07/01/24Team MemberRelationshipSpecialtyStart DateEnd Date Rachid Barillas MD [address] [place] [address] PCP - [facility]07/23/24 Shaikh Acevedo MD [address] [place] [address] PCP - [facility]10/27/23 Chioma Hardy COMPUTER CONSOLE OPERATOR [facility]07/01/24Team MemberRelationshipSpecialtyStart DateEnd Date Rachid Barillas MD [address] [place] [address] PCP - [facility]07/23/24 Shaikh Acevedo MD [address] [place] [address] [facility] Chioma Hardy NP [facility]07/01/24Team MemberRelationshipSpecialtyStart DateEnd Date Rachid Barillas MD [address] [place] [address] PCP - [facility]07/23/24 Shaikh Acevedo MD [address] [place] [address] PCP - [facility]10/27/23 Chioma Hardy NP [facility]07/01/24Team MemberRelationshipSpecialtyStart DateEnd Date Rachid Barillas MD [address] [place] [address] PCP - [facility]07/23/24 Shaikh Acevedo MD [address] [place] [address] PCP - [facility]10/27/23 Chioma Hardy [facility]07/01/24 Team Status: Active Member Role Status Dates NON STAFF Primary Care Provider Active Team Status: Inactive Member Role Status Dates NON STAFF Primary Care Provider Active Start: June 25, 2025 End: June 25, 2025Brian Youngending ProviderActiveStart: June 25, 2025 End: June 25, 2025 Team Status: Active Member Role Status Dates Lela Solorzano COMPUTER CONSOLE OPERATOR-C Primary Care Provider Active Team Status: Inactive Member Role Status Dates Lela Solorzano COMPUTER CONSOLE OPERATOR-C Primary Care Provider Active Start: August 13, 2025 End: August 13, 2025Lela Solorzano COMPUTER CONSOLE OPERATOR-CAttending ProviderActiveStart: August 13, 2025 End: August 13, 2025 Team Status: Inactive Member Role Status Dates Tania Lucero DO Attending Provider Active Start: September 03, 2025 End: September 03, 2025Lela Solorzano COMPUTER CONSOLE OPERATOR-CPrimary Care ProviderActiveStart: September 03, 2025 End: September 03, 2025 Team Status: Active Member Role/Relationship Status Dates Llea Solorzano COMPUTER CONSOLE OPERATOR-C Primary Care Provider Active Team Status: Inactive Member Role/Relationship Status Dates Lela Solorzano COMPUTER CONSOLE OPERATOR-C Primary Care Provider Active Start: August 13, 2025 End: August 13, 2025Lela Solorzano COMPUTER CONSOLE OPERATOR-CAttending ProviderActiveStart: August 13, 2025 End: August 13, 2025 Team Status: Inactive Member Role/Relationship Status Dates Tania Lucero DO Attending Provider Active Start: September 03, 2025 End: September 03, 2025Lela Solorzano NP-CPrnorthern regional hospitalry Care ProviderActiveStart: September 03, 2025 End: September 03, 2025 Team Status: Inactive Member Role/Relationship Status Dates Lela Solorzano NP-C Primary Care Provider Active Start: September 25, 2025 End: September 25, 2025Lela Solorzano NP-CAttending ProviderActiveStart: September 25, 2025 End: September 25, 2025Team MemberRelationshipSpecialtyStart DateEnd Date Rachid Barillas MD PCP - GeneralFamily Medicine Rachid Barillas MD PCP - GeneralFamily Medicine Shaikh Acevedo MD PCP - GeneralInternal Medicine Rachid Barillas MD PCP - GeneralFamily Medicine07/23/24 Shaikh Acevedo MD [address] [place] [address] PCP - [employer]10/27/23 Chioma Hardy NP Nurse Practitionermily Medicine07/01/24Team MemberRelationshipSpecialtyStart DateEnd Date Shaikh Acevedo MD [facility] Rachid Barillas MD PCP - [facility]07/23/24 Shaikh Acevedo MD [address] [place] [address] [facility]23 [facility]oma Hardy [facility]07/01/24Team MemberRelationshipSpecialtyStart DateEnd Date Rachid Barillas MD PCP - [facility]07/23/24 Shaikh Acevedo MD [address] [place] [address] PCP [facility]10/27/23 Chioma Hardy NP [facility]07/01/24 Reason for Visit (unrecogniz ed section and content) ReasonCommentsFollow-upReasonCommentsMed Change RequestReasonCommentsFollow-up ReasonOnset DateCommentsMed [id number] Annual Wellness Visit InitialReasonOnset DateCommentsMed Wxhvme7705/19/2025 Goals (unrecognized section and content) Goals may [...] BE BASED ON THE PRIMARY CLINICAL RECORDS. [facility] [employer] on original products [facility]. provides no warranty or guarantee of the accuracy or completeness of information in this document.
--- NOTE | 2025-11-03 14:45 | PM.CN ---
Consult Note: HPI Data of Consult Patient: known to practice within the last 3 years Consult date: 11/03/25 Requesting Physician: Jennifer Aldrich MD Primary Care Provider: Lela Solorzano NP Consult Narrative Reason for consult: low back pain Narrative: 69yom who presents for evaluation. longstanding low back pain history, worsened with standing and ambulation. imaging reviewed, significant for moderate to severe facet arthropathy through lumbar spine. has engaged in >6 weeks of provider directed home exercise program, without relief. uses otc meds as needed. cc:: CC: Jennifer Aldrich MD Review of Systems ROS Status of ROS 10 or more systems reviewed and unremarkable except as noted in history and below [facility] Medical History Umbilical hernia ?K42.9 - Umbilical hernia without obstruction or gangrene (ICD-10) Gastric reflux ?K21.9 - Gastro-esophageal reflux disease without esophagitis (ICD-10) Dyslipidemia ?E78.5 - Hyperlipidemia, unspecified (ICD-10) Diabetes ?E11.9 - Type 2 diabetes mellitus without complications (ICD-10) Depressive disorder ?F32.A - Depression, unspecified (ICD-10) Coronary arteriosclerosis ?I25.10 - Atherosclerotic heart disease of [place] coronary artery without angina pectoris (ICD-10) Anemia ?D64.9 - Anemia, unspecified (ICD-10) Surgical History H/O umbilical hernia repair ?Z98.890 - Other specified postprocedural states (ICD-10) ?Z87.19 - Personal history of other diseases of the digestive system (ICD-10) History of tonsillectomy and adenoidectomy ?Z90.89 - Acquired absence of other organs (ICD-10) History of cardiac cath ?Z98.890 - Other specified postprocedural states (ICD-10) H/O colonoscopy ?Z98.890 - Other specified postprocedural states (ICD-10) Family History Other Family history of CHF (congestive heart failure) Family history of cancer Family history of diabetes mellitus Family history of hypertension Family history of myocardial infarction Social History Within the past year, how often did you have a drink containing alcohol: 4 or more times a week Within the past year, how many standard drinks containing alcohol did you have on a typical day: 3 or 4 Within the past year, how often did you have six or more drinks on one occasion: weekly Total score: 5 Score interpretation: A score of 4 or more indicates drinking is likely to affect patient's safety. Do you use any of these nicotine containing products: smokeless tobacco Second hand tobacco smoke exposure: No Previous occupational history: Retired- [employer] Highest level of school completed/degree received: Associate degree: occupational, technical, vocational program Meds Home Medications and Allergies Home Medications ?Medication ?Instructions ?Recorded ?Confirmed ?Type amlodipine 10 mg tablet 10 mg PO DAILY 10/30/23 05/29/24 History atorvastatin 40 mg tablet 40 mg PO DAILY 10/30/23 05/29/24 History isosorbide mononitrate 60 mg 60 mg PO DAILY 10/30/23 05/29/24 History tablet,extended release 24 hr lisinopril 20 1 tab PO BID 10/30/23 05/29/24 History mg-hydrochlorothiazide 12.5 mg tablet metformin 850 mg tablet 850 mg PO DAILY 10/30/23 05/29/24 History metoprolol succinate 100 mg 100 mg PO DAILY 10/30/23 05/29/24 History tablet,extended release 24 hr omeprazole 20 mg capsule,delayed 20 mg PO DAILY 10/30/23 05/29/24 History release paroxetine HCl 40 mg tablet 40 mg PO DAILY 10/30/23 05/29/24 History Allergies Allergy/AdvReac Type Severity Reaction Status Date / Time oxycodone (From OxyContin) Allergy Hives Verified 10/30/23 12:25 Exam Narrative Exam Narrative: Psych-alert and oriented x 3. Attentive and appropriate, constitutionally normal, displays normal mood and affect per situation.? There are no obvious deficits in memory, reasoning, or intellect.? Skin-no obvious rashes, bruising, erythema noted to the patient's area of pain. Extremities- extremities are warm with minimal edema and palpable pulses. Lumbar-no significant tenderness to palpation noted in the lumbar spine and paraspinal musculature.? Pain is elicited with extension, and lateral rotation of the lumbar spine. Range of motion is slightly diminished with these motions due to pain. Facet loading maneuvers are positive bilaterally and do appear to be concordant with the patient's normal complaints of pain.? Coordination remains intact.? Gait remains non-antalgic. Assessment and Plan Assessment and Plan (1) Lumbar spondylosis: Plan 69yom who presents for evaluation. failed conservative measures, as noted. imaging reviewed, as noted. given symptoms and imaging, prudent to attempt diagnostic bilateral l3-4, l5-s1 medial branch block under fluoroscopic guidance with intention of proceeding to radiofrequency ablation. he is in agreement. meds reviewed, no changes. follow up after procedure.
== END 2025-11-03 13:25 | disposition home or self-care (01) ==
LOC: PM 13:25
PROVIDERS: PCP Nurse Practitioner; Visit Provider Anesthesiology
DX: M47.816 Spondylosis without myelopathy or radiculopathy, lumbar region (principal)
CPT/HCPCS: G0463

== ENCOUNTER 2025-11-24 06:33 | Day surgery (SDC) | payer MEDICARE, SELFPAY ==
--- OUTSIDE RECORDS SUMMARY | 2025-11-24 06:35 | XMS_ITS | Clinical Summary ---
Author Organization [facility] Address [address] [place] [address] Care Team Providers Care Plant Technician/Control Room Operator Name Role Phone Tammy Hardy NP Unavailable [phone] Rachid Henning MD Primary Care Provider [phone] Shaikh МАРИНА Acevedo Unavailable [phone] Allergies Active AllergyReactionsCriticalityNoted DateCommentsOxycodoneHivesMedium 11/16/2023 Medications [...] by mouth in the morning. 30 tablet 1412//030059/6Active omeprazole (PriLOSEC) [address] capsule Indications:Chronic GERDTake 1 capsule (20 mg) by mouth at bedtime 90 capsule ctive PARoxetine (Paxil) 40 MG tablet Indications:Persistent depressive disorderTake 1 tablet (40 mg) by mouth Daily 90 tablet ctive metFORMIN (Glucophage) 850 MG tablet Indications:Type 2 [...] Take 12.5 mg by mouth in the morning.6Active semaglutide (Ozempic, 1 MG/DOSE,) 4 MG/3ML solution pen-injector Inject 1 mg under the skin 1 (one) time per week11/07/2024ctive atorvastatin (Lipitor) 40 MG tablet Indications:Hyperlipidemia, unspecifiedTake 1 tablet (40 mg) by mouth at bedtime 90 tablet 5Active Active Problems ProblemNoted DateDiagnosed DateType 2 diabetes mellitus with other specified sbaajracpvwh33/17/2025 Assessment & Plan (05/13/2025 6:16 AM EDT): HTN, CAD, ED Encounter for subsequent annual wellness visit (AWV) in Medicare patient 05/13/2025 Assessment & Plan (05/13/2025 6:17 AM EDT): Reviewed Ht/Wt/BMI Recommend eye exam yearly Recommend dental exams twice a year Balance work/leisure activities Exercises is recommended most days of the week (appropriate as chronic conditions allow) Follow up yearly and prn Chest pain03/11/2025Umbilical dwvnlg9503/11/2025Pulmonary fibrosis, unspecified 02/10/2025 Assessment & Plan (02/10/2025 6:57 AM EDT): Follows with dr rust Current meds: albuterol prn Morbid (severe) obesity due to excess ceexavhq65/17/2025 Assessment & Plan (05/13/2025 6:16 AM EDT): [...] dysfunction)02/10/2025Former tobacco use02/10/2025Hypogonadism male02/10/2025 Obstructive sleep apnea wlasvkhg48/17/2025 Assessment & Plan (05/13/2025 6:15 AM EDT): [...] that supplies your machine and tubing/filters etc: [facility] Doctor that manages your ZENON: Dr Og [...] that supplies your machine and tubing/filters etc: [facility] Doctor that manages your ZENON: Dr Og Episode of recurrent major depressive blyybptc47/17/2025 Assessment & Plan (02/10/2025 1:45 PM EDT): Current med: paxil ( has been on this 15-20 years) PHQ 9=2 VINICIO 7= 0 Prostate cancer yqkeoaawx35/17/2025 Overview (03/14/2025): 03/13/25: 1.70 Cerumen debris on [...] Follow up in one month Mild cognitive opclkcihgj31/27/2024 Assessment & Plan (02/10/2025 7:03 AM EDT): Under the care of neurology Has also had MRI brain and neuropsych testing as well Assessment & Plan (07/23/2024 12:18 PM EDT): Following with Neurology- Sees Dr. Lucero and was referred to additional specialisat @ [facility] Neurology- Appointment on 07/30/2024; MRI completed [...] underlying reactive airway disease Order PFTs. Coronary kyhuixgxgogngflg36/24/2022 Assessment & Plan (05/13/2025 6:15 AM EDT): Current meds: statin, imdur, demarco/hydrochlorothiazide, b denice, asa Cardiology: [facility] Assessment & Plan (02/10/2025 1:44 PM EDT): Current meds: statin, imdur, demarco/hydrochlorothiazide, b denice, asa Cardiology: [facility] Assessment & Plan (05/23/2024 10:57 AM EDT): Non obs CAD on [facility] in 2014. On ASA, stain, imdur and Toprol Follows [facility] cardiology. Denies CP, SOB, palpitations. Assessment & Plan (01/25/2024 11:02 AM EST): Non obs CAD on [facility] in 2014. On ASA, stain, imdur and Toprol Follows [facility] cardiology. Denies CP, SOB, palpitations. Abyjguqdcxvefd87/24/2022 Assessment & Plan (02/10/2025 7:01 AM EDT): [...] On lipitor, check lipid panel. Solitary pulmonary bpxfrv8607/20/2022 Overview (04/02/2025): Fu CT done 04/02/25 by [...] pulm nodule left lower lobe Benign essential /18/2020 Assessment & Plan (05/13/2025 6:15 AM EDT): [...] without complication, without long-term current use of uiotlku9611/13/2020 Assessment & Plan (05/13/2025 10:22 AM EDT): [...] DateDiagnosed DateResolved DateType 2 diabetes mellitus without dodbgbelkjvju94/17/202506/Skin mole/ Assessment & Plan (01/25/2024 1:12 PM EST): Mole noted over his back. Irregular margin, raised, with color variation. No growth. Suspect melanoma - refer to derm Non-recurrent acute suppurative otitis media of both ears without spontaneous rupture of tympanic jsrpcbhry96/ Assessment & Plan (11/16/2023 10:44 AM EST): [...] persistent fever, confusion develops. Acute bronchitis with fysricxz73/5328Rqqqycoxoxaa47/18/2020 02/10/2025Persistent depressive gbniafqe24 Assessment & Plan (01/25/2024 11:04 AM EST): [...] DatesNext DueInfluenza, High-dose Seasonal, Quadrivalent, Preservative Free09/28/2023Influenza, Yvljclpnntb78/02/2023, 09/12/2021,08/27/2020,08/26/2020,11/18/2019,08/14/2018,09/15/2017,10/16/2015, 08/05/2013,08/09/2012,08/12/2011,07/28/2011Influenza, injectable, quadrivalent 11/18/2019Influenza, injectable, quadrivalent, preservative free09/12/2021, 08/26/2020Influenza, seasonal, akvkkbajkp37/18/2018,09/15/2017,10/16/2015 Influenza, seasonal, injectable, preservative free08/05/2013,08/09/2012, 08/12/2011Zoster, Aarrbjwacsi74/01/2019,11/27/2018,09/11/2018,03/10/2018 Family History Medical HistoryRelationNameCommentsCancerBrotherHeart attackBrotherHeart disease BrotherHypertensionBrotherDiabetesMotherCancerSisterHypertensionSisterRelation [...] a week 07/16/2024How often do you attend catholic or zoroastrian services?Never07/16/2024o you belong to any clubs or organizations such as catholic groups, unions, fraternal or athletic groups, or school groups?No07/16/2024How often do you attend meetings of the clubs or organizations you belong to?Never07/16/2024re you , , , , never , or living with a partner?Gukukrv7707/16/2024UDIT-CAnswerDate RecordedQ1: How often do you have a [...] and heating?Not very hard07/16/2024HQ-2AnswerDate RecordedPatient Health Questionnaire-2 Unwgc561Finva hospital [place] [facility] - Occupational Stress QuestionnaireAnswerDate RecordedDo you feel stress - tense, restless, nervous, or anxious, or unable to sleep at night because yourmind is troubled all the time - these days?Only a kgadrp2607/16/2024Exercise Vital Sign AnswerDate RecordedOn average, how many [...] Date RecordedSex Assigned at BirthNot on fileLegal VlzZuwo7502/08/2023 7:19 PM EDT Gender IdentityNot on fileSexual OrientationNot on file Last Filed Vital Signs Vital SignReadingTime TakenCommentsBlood Lnblipti730/8205/13/2025 9:59 AM EDT Kphfh927805/13/2025 9:59 AM OCLHfpstmxgcft80.9 ??C (96.7 ??F)05/13/2025 9:59 AM EDTRespiratory Duct515605/13/2025 9:59 AM EDTOxygen Amavnudpta46%05/13/2025 9:59 AM EDTInhaled Oxygen Concentration--Dprofr762 kg (319 lb 3.2 oz)05/13/2025 9:59 AM SBRIyidlb913.9 cm (6')11/07/2024 9:29 AM ESTBody Mass Index43.29101/08/2024 9:29 AM EST Plan of Treatment Health MaintenanceDue DateLast DoneCommentsCT Qschobdtijsr79/03/1958FIT-DNA 1957FIT1957FOBT1957 2308Fqkzikcxwlfnt38/03/1958Influenza Vaccine (#1)/12/2022, 09/28/2023, 09/12/2021, Additional history exists Diabetes: Hemoglobin A1C/, 02/10/2025, 02/01/2024, Additional history existsPneumococcal Vaccine: 65+ Years (1 of 2 - PCV)02/10/2026Postponed from 1976 (Patient Refused)Diabetes: Urine Protein Knyeqkpzm78/16/2026 03/12/2025, 02/01/2024, 07/12/2022, Additional history existsMedicare Annual Wellness (AWV)6005/13/2025, 05/23/2024, 4Diabetes: Retinopathy Wwyxdxucg82/11/2023, 07/25/2023, 05/29/20230332Hqnaejvhqgc26/03/2034 05/29/2024, 05/29/2024, 04/08/2014Colorectal Cancer Zjnoyixbs77/03/2034 Goals GoalPatient Goal TypeAssociated ProblemsRecent ProgressPatient-Stated?Author Help patient manage antidepressant medication Care PlanPatient on antidepressant monitoring Tammy Licea NP Procedures Procedure NamePriorityDate/TimeAssociated DiagnosisCommentsPOCT GLYCOSYLATED HEMOGLOBIN (HGB A1C)Xmcfoef2205/13/2025 10:22 AM EDT Type 2 diabetes mellitus without complication, without long-term current use of insulin (HCC) DIABETIC RETINOPATHY SCREENING - OU - BOTH YZMWYmozbpa54/01/2024 12:41 PM EDT from Last 3 Months or Most Recently Relevant to Health Maintenance Results * (ABNORMAL) POCT glycosylated hemoglobin (Hb A1C) docked device (05/13/2025 10:22 AM EDT)ComponentValueRef RangeTest MethodAnalysis TimePerformed At Pathologist SignatureHemoglobin A1C7.7Specimen (Source)Anatomical Location / LateralityCollection Method / VolumeCollection TimeReceived TimeBloodVenous blood specimen / Hkmcmve6405/13/2025 10:22 AM EDT Narrative Authorizing ProviderResult TypeResult Abdiel Solorzano NPPOINT OF CARE TEST ENTER/EDIT ORDERABLESFinal [...] Medicine07/23/24 Shaikh Acevedo MD [address] [place] [address] PCP - [employer]10/27/23 Tammy Hardy NP Nurse PractitionerFamily Medicine07/01/24
--- OUTSIDE RECORDS SUMMARY | 2025-11-24 06:35 | XMS_ITS | Clinical Summary ---
Author Organization [facility] Address [address] [place] [address] Care Team Providers Care Market Basket Maker Name Role Phone Rachid Henning MD Primary Care Provider Allergies Active AllergyReactionsCriticalityNoted OoqmFzwlhennXxdrqdaqm61/24/2022 Medications MedicationSigDispense QuantityRefillsLast FilledStart DateEnd DateStatus amLODIPine [...] 1 tablet by mouth in the morning.Active albuterol 90 mcg/actuation inhaler Inhale 2 puffs every 4 (four) hours if needed.11/07/2024ctive anastrozole (Arimidex) 1 mg chemo tablet Take 1 mg by mouth 1 (one) time per weekActive Ozempic 1 mg/dose (4 mg/3 mL) pen injector Inject 1 mg under the skin in the morning.11/07/2024ctive testosterone undecanoate (Jatenzo) 237 mg capsule Take 237 mg by mouth.5Active spironolactone (Aldactone) 25 mg tablet Indications:Primary hypertension,Edema of lower extremityTake 0.5 tablets (12.5 mg) by mouth in the morning. 45 tablet 6Active metoprolol succinate XL (Toprol-XL) 100 mg 24 hr tablet Indications:Benign hypertension without congestive heart failureTake 1 tablet (100 mg) by mouth in the morning. Do not crush or chew. 90 tablet ctive isosorbide mononitrate ER (Imdur) 60 mg 24 hr tablet Indications:Coronary artery disease involving [place] coronary artery of [place] heart without angina pectorisTake 1 tablet (60 mg) by mouth in the morning. 90 tablet ctive isosorbide mononitrate ER (Imdur) 60 mg 24 hr tablet Indications:Coronary artery disease involving [place] coronary artery of [place] heart without angina pectorisTake 1 tablet (60 mg) by mouth in the morning. 90 tablet Discontinued(Reorder) Active Problems ProblemNoted DateDiagnosed DateChest pain03/11/2025Low pjzexq1003/11/2025Umbilical qvqjdw1703/11/2025alcified lymph nodes02/10/2025ED (erectile dysfunction) 02/10/2025Episode of recurrent major depressive oxkwhubx77/17/2025Former tobacco use02/10/2025Hypogonadism male02/10/2025Morbid (severe) obesity due to excess cesiaovs11/17/2025Prostate cancer ypfnqrndg04/17/2025Acquired buried penis 4Cerumen debris on tympanic membrane of both ears07/23/2024Mild cognitive grbeqgkfft94/27/2024Suspected chronic obstructive pulmonary disease based on initial cmwvjqjyzf94/29/2024cute /24/9493Hktnjf17/24/2022 Benign essential cywcbcnazzpa20/24/2022oronary ybmvrtuhnsqnumta72/24/2022ough 07/20/2022epressive mesiirfu71/24/4003Duhyvnadrwxkrl25/24/2022Hypertensive yhcjbwia08/24/2022Impaired fasting etotlvi1707/20/2022Neck uhswsp2107/20/2022ain in joint involving ankle and foot07/20/2022recordial pain07/20/2022olitary pulmonary mfqzpe4507/20/2022besity (BMI 30-39.9)/hronic GERD yslipidemiaType 2 diabetes mellitus without complication, without long-term current use of gkttaev7011/13/2020 08/31/20234734Kgtoulmlyfti82Rectal zcokpjhp09 Sleep apnea Encounters DateTypeDepartmentCare WykgJzpkarlntem45/15/2025RefD[place] [address] [place] [facility] [place] [address] Arline Ambriz MA Coronary artery disease involving [place] coronary artery of [place] heart without angina wshppudn66/15/2025RefEating [facility] [address] [place] [facility] [place] [address] Arline Ambriz MA from Last 3 Months Family History Medical HistoryRelationNameCommentsHypertensionBrotherDiabetesMotherHeart [...] Recorded Sex Assigned at BirthNot on fileLegal QzbMwpy7905/25/2022 11:37 PM EDTGender IdentityNot on fileSexual OrientationNot on file Last Filed Vital Signs Vital SignReadingTime TakenCommentsBlood Fzvwikxl420/8604 9:17 AM EDT Egpuo428903/14/2025 9:17 AM EDTTemperature--Respiratory Cmtn350803/22/2024 12:50 PM EDTOxygen Rnkpummaza56%03/14/2025 9:17 AM EDTInhaled Oxygen Concentration-- Bagarp014 kg (314 lb)03/14/2025 9:17 AM ILRCczfjn932.9 cm (6')03/14/2025 9:17 AM EDTBody Mass Index42.59003/14/2025 9:17 AM EDT Plan of Treatment Health MaintenanceDue DateLast DoneCommentsCT Gulgtjuhkukg41/03/1958Diabetes: Hemoglobin A1C1957FIT-DNA1957FIT1957FOBT1957Medicare Annual Wellness (AWV)1957 4626Yibbaocyehrzm87/03/1958Diabetes: Retinopathy Jcmyowqdi01/03/1968Depression Ytscdfsjv18/03/1970Pneumococcal Vaccine: 50+ Years (1 of 2 - PCV)1976Adult [place]1811/29/1979Fall Risk Alkowvymt02/03/2023 Diabetes: Urine Protein Oewfnxrza68/OVID-19 Vaccine ( season)/, 03/06/2021, 02/06/2021Influenza Vaccine (#1) /12/2022, 09/12/2021, 08/27/2020, Additional history exists Mgpotxxbbqd12/03/203407/01/2024, 04/08/2014Colorectal Cancer Qkjlqifkr02/03/2034 Zoster YgmqcsjwErlnvjhjb60/01/2019, 11/27/2018, 09/11/2018, Additional history existsHIB VaccinesAged OutNo [...] Date Rachid Henning MD [address] [place], [place] [address] PCP - Hwfpotw13/5/23
--- OUTSIDE RECORDS SUMMARY | 2025-11-24 06:36 | XMS_ITS | Patient Health Record ---
Author Organization [facility] in [place] Address [address] [place] [address] Care Team Providers Care Ec Teacher Name Role Phone Lela Solorzano CNP Primary Care Provider Unavail able Fracisco Morrison Unavailable [phone] Allergies Allergen (clinical drug ingredient) Drug/Non Drug Allergy documented on EMR Reaction Allergy Type Onset Date Status oxycodone Oxycodone hives Drug Allergy Active Results Component Value Reference Range Notes CT Chest w/o contrast Reviewed date:04/02/2025 10:07:53 AM Interpretation: Performing Lab: Notes/Report: CT chest wo con Reviewed date:04/02/2025 10:44:20 AM Interpretation: Performing Lab: Notes/Report: Source Facility: [place] [address] CT Scan Report Signed Patient: JAYSON PAUL MR#: [id number] : 1955 Acct:[id number] Age/Sex: 69 / M ADM Date: 04/02/25 Loc: CT Attending Dr: Fracisco Morrison D.O. Ordering Physician: Fracisco Morrison D.O. Date of Service: 04/02/25 Procedure(s): CT chest wo con Accession Number(s): [id number] cc: Lela Solorzano NP [place] [address] Patient Name: JAYSON PAUL MRN: [id number] date: 1955 Sex: M Assigned Patient Location: CT Current Patient Location: CT Accession/Order Number: [id number] Exam Date: 04/02/2025 09:52 Report Date: 04/02/2025 [...] Dan Jr.OHumera 04/02/2025 9:55 AM Dictation Location: [place] [address] Electronically authenticated by: [id number] Y Date: 04/02/2025 09:55 Dictated By: John Sneed M.D. Signed By: 04/02/25 0957 DD/ 4 TD/TT: [employer] Manager: Reason For Referral No Information Medications Medication [...] Comme nts Flu, Fluzone High-Dose (2022 -2023) (52005) 65 yrs+ Unknown 09/28/2023 Administered SARS-COV-2 (COVID 19 Moderna - Booster 0.25mL)Pyeqtzm1010/23/2021dministered ZOSTER (SHINGLES) VACCINE (HZV)Gymjjsa0309/11/2018Administered Social History Tobacco Use: Social History Observation [...] yearsAdditional Findings: Tobacco userChews tobaccoAdditional Findings: Tobacco atc-artdCn-qnwky cigarette smoker (20-30/day) Problems Problem Type SNOMED Code ICD Code Onset Dates Problem Status W/U Status Risk Notes Problem Solitary pulmonary nodule (597795409) Sonia itary pulmonary nodule (R91.1) ActiveconfirmedProblemMorbid obesity (968516098)Morbid obesity (E66.01)Active confirmedProblemObstructive sleep apnea syndrome (77667191)ZENON (obstructive sleep apnea) (G47.33)ActiveconfirmedProblemDiabetes mellitus type 2 (disorder) (90355118)DM2 (diabetes mellitus, type 2) (E11.9)ActiveconfirmedProblemEx- tobacco user (finding) (941528603)History of tobacco abuse (Z87.891)Active confirmedProblemCalcified granuloma of lung (42096036564625906)Calcified granuloma of lung (J84.10)ActiveconfirmedProblemCalcified lymph nodes (533766624)Calcified lymph nodes (I89.8)Activeconfirmed Vital Signs Heart Rate 77 /min 03/26/2025 Dvxrkprgxkq86.9 degrees Lmiouytqlq24/30/2025Respiratory Rate18 /min03/26/2025 Uqgitftv09 %03/26/2025lood pressure mm Hg03/26/20255589Zjlind26 in 03/26/2025lood pressure mm Hg03/26/20259668Nzelab520.8 lbs03/26/2025MI 43.23 kg/m203/26/2025 Encounters Encounter Location Date Provider Diagnosis [facility] [place] [address] [place] [address] 03/26/2025 [facility] Solitary pulmonary nodule R91.1 ; Shortness of breath R06.02 ; Calcified granuloma of lung J84.10 ; Calcified lymph nodes I89.8 ; ZENON (obstructive sleep apnea) G47.33 ; DM2 (diabetes mellitus, type 2) E11.9 ; History of tobacco abuse Z87.891 and Morbid obesity E66.01 [facility] [place] [address] [place] [address] 04/02/2025 [facility] Assessments Encounter Date Diagnosis (ICD [...] 03/06/2024 - [facility] -8mm 07/12/2022 - [facility] -5mm 03/21/2012 - [facility] (presumptive same location as above) The variation between the two most recent studies could be positional, but unclear if it could explain a 5mm difference. This would represent either scar/granuloma vs. an extremely slow growing kbdxnqguxhdfji-gb-tkif. My suspicion is for the former. Options [...] as 03/21/2012. Consistent with old granulomatous disease. 03/26/2025alcified lymph nodes (ICD-10 - I89.8) Present as [...] Date Coverage End Date [employer] [address] [place] [address] [id number], MichaelSelf - patient is the insured Medical [...]
--- OUTSIDE RECORDS SUMMARY | 2025-11-24 06:36 | XMS_ITS | Encounter Summary ---
Author Organization [facility] Address [address] [place] [address] Care Team Providers Care Pattern Puncher Name Role Phone Rachid Henning MD Primary Care Provider [phone] Reason for Visit * ReasonOnset DateCommentsMed Hetsco8111/10/2025 Encounter Details DateTypeDepartmentCare Team (Latest Contact Info)Nasprcsvvod80/15/2025Refill [address] [address] Arline Ambriz MA Social History Tobacco UseTypesPacks/DayYears UsedDateSmoking Tobacco: FormerCigarettes Smokeless Tobacco: CurrentChewAlcohol UseStandard Drinks/WeekCommentsYes0 (1 standard drink = 0.6 oz pure alcohol)MODERATEUT Safety & EnvironmentAnswerDate RecordedFear of Current or Ex-PartnerNot on file01/18/2024Emotionally AbusedNot on file01/18/2024hysically AbusedNot on file01/18/2024Sexually AbusedNot on file01/18/2024hysically or Sexually AbusedNot on file01/18/2024Sex and Gender InformationValueDate RecordedSex Assigned at BirthNot on fileLegal SexMale 05/25/2022 11:37 PM EDTGender IdentityNot on fileSexual OrientationNot on file documented as of this encounter Plan of Treatment Not on file documented as of this encounter Visit Diagnoses Not on filedocumented in this encounter Care Teams Team MemberRelationshipSpecialtyStart DateEnd Date Rachid Henning MD [address] [place] [address] [facility] - Mfekbqd76/5/23documented as of this encounter
--- OUTSIDE RECORDS SUMMARY | 2025-11-24 06:36 | XMS_ITS | Encounter Summary ---
Author Organization [facility] Address [address] [place] [address] Care Team Providers Care Wound Nurse Name Role Phone Rachid Henning MD Primary Care Provider [phone] Reason for Visit * ReasonOnset DateCommentsMed Veaazc4311/10/2025 Encounter Details DateTypeDepartmentCare Team (Latest Contact Info)Bnhoxwfyivu06/15/2025Refill [facility] Heart at [address] [address] Arline Ambriz MA Coronary artery disease involving [place] coronary artery of [place] heart without angina pectoris Social History Tobacco UseTypesPacks/DayYears UsedDateSmoking Tobacco: FormerCigarettes [...] as of this encounter Visit Diagnoses Diagnosis Coronary artery disease involving [place] coronary artery of [place] heart without angina pectoris documented in this encounter Care Teams Team MemberRelationshipSpecialtyStart DateEnd Date Rachid Henning MD [address] [place] [address] PCP - Khrndlf16/5/23documented as of this encounter
--- OUTSIDE RECORDS SUMMARY | 2025-11-24 06:36 | XMS_ITS | Clinical Summary ---
Author Organization [facility] Address [id number] [place] [address] Care Team Providers Care Radio Station Engineer Name Role Phone Rachid Henning MD Primary Care Provider [phone] Allergies Active AllergyReactionsCriticalityNoted DateCommentsOxycodoneHives,ItchingLow 05/13/2013 Medications MedicationSigDispense QuantityRefillsLast FilledStart DateEnd DateStatus aspirin 81 mg Take 81 mg by mouth daily.Active lisinopril-hydroCHLOROthiazide (PRINZIDE,ZESTORETIC) 20-12.5 mg per tablet Indications:Essential hypertensionTake 1 tablet by mouth in the morning and 1 tablet before bedtime. 180 tablet ctive metFORMIN (GLUCOPHAGE) 850 mg tablet Indications:Type 2 diabetes mellitus without complication, without long-term current use of insulin ([facility])Take 1 tablet (850 mg total) [...] Active Problems ProblemNoted DateDiagnosed DateObesity (BMI 30-39.9)1Essential hshqvebtoigr65/18/3881Vilcaomcbabv14/18/2020Type 2 diabetes mellitus without complication, without long-term current use of xjeujmv9211/13/2020Persistent depressive erelwspc40/18/2020Chronic GERD11/13/2020Right lower lobe pulmonary ofiade9911/13/2020 Overview (07/09/2021): 2013: 5 mm 2020: 8 mm Immunizations ImmunizationAdministration DatesNext DueCOVID-19, mRNA, LNP-S, PF, 100mcg/0.5mL Dose03/06/2021,02/06/2021Influenza (IM) Preservative Free08/05/2013,08/09/2012, 08/12/2011Influenza, Im Trivalent Fheifcbssboc72/18/2018,09/15/2017,10/16/2015 Influenza, Injectable, Xhggcmpxxduy83/23/2019Influenza, Injectable, quadrivalent (PF)09/12/2021,08/26/2020Influenza, Nmzcfpnevfj27/01/2020,07/28/2011Zoster Vaccine Gvguvzygxje72/01/2019,11/27/2018,09/11/2018,03/10/2018 Family History Medical HistoryRelationNameCommentsHeart diseaseBrother 1Heart diseaseBrother 2 No Known ProblemsFatherNo Known ProblemsMaternal GrandfatherNo Known Problems Maternal GrandmotherDiabetesMotherHeart diseaseMotherNo Known ProblemsPaternal GrandfatherNo Known ProblemsPaternal GrandmotherThyroid cancerSisterRelationName StatusCommentsBrother 1DeceasedBrother 2DeceasedFatherDeceasedMaternal GrandfatherDeceasedMaternal GrandmotherDeceasedMotherDeceasedPaternal GrandfatherDeceasedPaternal GrandmotherDeceasedSisterAlive Social History Tobacco UseTypesPacks/DayYears UsedDateSmoking Tobacco: LsudlbHxjbjhfpjy403035 - 1990Smokeless Tobacco: CurrentChew Tobacco Cessation:Ready to Q uit: Not Asked; Counseling Given: Not Answered Alcohol UseStandard Drinks/WeekCommentsYes0 (1 standard drink = 0.6 oz pure alcohol)PHQ-2AnswerDate RecordedTotal Rvsjm6011ChildcareAnswerDate HqduzcgqEdhtyjplqQoeiowt33/15/2020EmploymentAnswerDate RecordedEmploymentUnknown 11/10/2020Purpose - LifeAnswerDate RecordedPurpose and direction in lifeUnknown 12/30/2020ex and Gender InformationValueDate RecordedSex Assigned at BirthNot on fileLegal LcuCpix7107/02/2015 11:26 AM EDTGender IdentityNot on fileSexual OrientationNot on file Last Filed Vital Signs Vital SignReadingTime TakenCommentsBlood Qnpksczj709/8411 9:05 AM EST Pgfam357610/03/2022 8:29 AM KIOLmegvajdici74.9 ??C (98.5 ??F)07/13/2021 8:18 AM EDTRespiratory Lxao727712/03/2021 8:29 AM ESTOxygen Seubxfhtzm13%10/03/2022 8:29 AM ESTInhaled Oxygen Concentration--Fyyqjc593.3 kg (285 lb)10/03/2022 8:29 AM HCMRerxbz699.9 cm (6')10/03/2022 8:29 AM ESTBody Mass Index38.6510/03/2022 8:29 AM EST Plan of Treatment Health MaintenanceDue DateLast DoneCommentsDiabetic Ophthalmology Exam1955 Depression Iqkdjbnbu89/03/1970Tobacco Pgeumpdqe78/03/1970Adult BMI Screening 1975Diabetic Foot Exam1975DTaP,Tdap and Td Vaccines (1 - Tdap) 1976Fall Risk Rtxunuyus17/03/0911Irfjwdaodxp93/13/COVID-19 Vaccine ( season)511/, 03/06/2021, 02/06/2021 Influenza Cbjakoh88/12/2022, 09/12/2021, 08/27/2020, Additional history existsStatin Use: Umvleulv75/24/832175/RSV ( or age 60+ yrs) (1 - 1-dose 75+ series)2032Zoster (Shingles) VaccineCompleted 04/27/2019, 11/27/2018, 09/11/2018, Additional history exists Medical Devices Not on file Insurance Care Teams Team MemberRelationshipSpecialtyStart DateEnd Date Rachid Henning MD PCP - GeneralFamily Medicine04/03/23
[2025-11-24 06:37] VITALS: BP 177/100; PULSE 74; TEMP 36.6; O2SAT 95
--- OUTSIDE RECORDS SUMMARY | 2025-11-24 06:39 | XMS_ITS | CCD ---
Author Organization [facility] Care Team Providers Care Thimble Press Operator Name Role Phone SADIA, MARIANELA Admitting [...] Care Unavailable SHAIKH ACEVEDO Primary Care Physician [phone] ANTONY, [place]. CHIOMA BADILLO Primary Care P hysician Rachid Barillas MD Unavailable Antony RACE ENGINE BUILDER, Chioma Unavailable [phone] Rachid Barillas MD Primary Care Provider Antony RACE ENGINE BUILDER, Chioma Unavailable [phone] Shaikh Acevedo MD Unavailable ANTONY CHIOMA Primary Care UnavailTania Lawrence Admitting Unavailable Tania Mariscal Attending Unavailable Tania Mariscal Admitting Unavailable Tania Mariscal Attending Unavailable ANTONY [facility] Care UnavailFunmi Soler Attending Unavailable RACHID BARILLAS Referring Unavailable Funmi RESENDIZ Attending Unavailable Tania Mariscal Attending [facility] UnavailTania Lawrence Attending Unavailable HARDY, [facility] Primary Care Unavailabl e Tania Mariscal Attending Unavailable HARDY, [facility] Care Unavailabl e Tania Mariscal Attending Unavailable HARDY, [facility] Primary Care Unavailabl e HARDY, CHIOMA Referring [...] e Perri Og DO Attending Provider Jeanine RACE ENGINE BUILDER-CLela Primary Care Provider Jeanine RACE ENGINE BUILDER-CLela Attending Provider Tania Lucero DO Attending Provider Rachid Barillas MD Primary Care Provider Juvencio PARISH, Rachid Primary Care Provider Shaikh Acevedo MD Primary Care Provider [phone] Rachid Barillas MD Primary Care Provider [phone] Shaikh Acevedo MD Unavailable ANTONY, [facility] Unavailabl e Tania Mariscal Admitting Unavailable Tania Mariscal Attending Unavailable Tania Mariscal Attending [facility] Unavail[facility] Admitting Unavailable Tania Mariscal [facility]ending [facility] Unavail[facility] e Allergies Allergy ClassificationReported Allergen(s)Allergy TypeDate of OnsetReaction(s) Facility (1 source)oxyCODONEDrug Vymsqzi17-09-2822Kqr [facility] Repository (20 sources)oxyCODONE; Translations: [oxycodone]Drug Xowkewb48-30-8085Unrsoux (finding), Weal (disorder), HivesFisher-Petersburg [facility] Amina Medications Current Medications MedicationDrug Class(es)DatesSig (Normalized)Sig (Original)0.25 MG, 0.5 MG Dose 3 ML semaglutide 0.68 MG/ML Pen Injector [Ozempic] (4 sources)Start: 24-53-4469zkdnfw 0.5 mg by subcutaneous injection every week [...] Date: 08/28/24 Status: Ordered Repeat number: 1Start: 74-02-4430duttap 0.5 mg by subcutaneous injection every weekOzempic 2 mg/3 mL (0.25 mg or 0.5 mg dose) subcutaneous solution 0.5 mg, SubCutaneous, qWeek Start Date: 08/28/24 Status: [id number] 200 actuat albuterol 0.09 mg/actuat metered dose inhaler (20 sources)beta2-Adrenergic AgonistStart: 82-10-1388Pqnod: 11-16-2023 End: 31-30-6000ilma 2 puff(s) by inhalation every four hours for wheezing albuterol HFA (Ventolin HFA) 90 mcg/act inhaler Indications: Suspected chronic obstructive pulmonary disease based on initial evaluation ([facility]) Inhale 2 puffs every 4 (four) hours if needed for wheezing 18 g 11/07/2024 ActiveAlbuterol (Eqv-Ventolin HFA) 90 mcg/inh inhalation aerosol (4 sources)Start: 21-65-9766dmdi 2 puff(s) by inhalation every four hours Albuterol (Eqv-Ventolin HFA) 90 mcg/inh inhalation aerosol 2 puff(s), Inhalation, q4hr Start Date: 08/28/24 Status: Ordered Medication Dispense Status: Completed Total Allowed Fills: 1 Fills Dispensed: 0Start: 89-30-2487pfhv 2 puff(s) by inhalation every four hoursAlbuterol (Eqv-Ventolin HFA) 90 mcg/inh inhalation aerosol 2 puff(s), Inhalation, q4hr Start Date: 08/28/24 Status: Ordered Repeat number: 1Start: 43-27-9440uwue 2 puff(s) by inhalation every four hoursAlbuterol (Eqv-Ventolin HFA) 90 mcg/inh inhalation aerosol 2 puff(s), Inhalation, q4hr Start Date: 08/28/24 Status: Orderedaspirin 81 mg oral tablet (20 sources)Platelet Aggregation Inhibitor, Nonsteroidal Anti-inflammatory Drug Start: 33-17-4257lmsr 1 tablet by mouth once dailyStart: 03-20-2024 End: 93-79-2263auwoadd 81 mg Chew Tab 81 mg = 1 tab(s), Chewed, Daily, Refills(s) 0 Start Date: 03/20/24 Status: Ordered Medication Dispense Status: Completed Total Allowed Fills: 1 Fills Dispensed: 0atorvastatin 40 mg oral tablet (20 sources)HMG-CoA Reductase InhibitorStart: 05-20-2024 End: 37-04-3858coat 1 tablet by mouth once dailycarbamide peroxide 65 mg/ml otic solution (2 sources)Start: 07-23-2024 End: 72-62-1928xzpjulmrc peroxide (Debrox) 6.5 % otic solution Indications: Cerumen debris on tympanic membrane ofboth ears Administer 3-5 drops into affected ear(s) in the morning and 3-5 drops before bedtime. Doall this for 4 days. 15 mL 07/23/2024 07/27/2024 ActiveCpap (Continuous Positive Airway Pressure) unit (3 sources)Start: 06-50-4283Oqks (Continuous Positive Airway Pressure) unit Active 0 .Route 1 0 June 25, 2025 12:00am New mask and supplies x 1 year, Dx ZENON Patient would like the ramp turned offStart: 47-99-1536Zllg (Continuous Positive Airway Pressure) unit Active 0 .Route 1 June 25, 2025 12:00am New mask and supplies x 1 year, Dx ZENON Patient would like the ramp turned off fexofenadine hydrochloride 180 mg oral tablet (20 sources)Histamine-1 Receptor AntagonistStart: 32-22-1082yjhc 1 tablet by mouth once dailyStart: 08-28-2024 End: 92-92-1507gslc 1 tablet by mouth once dailyFexofenadine 180 mg tablet Active 180 MG PO Daily June 25, 2025 12:00am Complies with drug therapytake 1 tablet by mouth in the morningfexofenadine ([facility]) 180 MG tablet Take 1 tablet by mouth in the morning. ActivehydroCHLOROthiazide 12.5 mg / lisinopril 20 mg oral tablet (20 sources)Thiazide Diuretic, Angiotensin Converting Enzyme InhibitorStart: 06-25-2025 End: 51-57-9194sbpd 1 tablet by mouth once dailyStart: 03-20-2024 End: 70-48-0655wwkp 1 tablet by mouth once dailylisinopril-hydroCHLOROthiazide 20-12.5 MG tablet Indications: Essential (primary) hypertension Take1 tablet by mouth Daily 90 tablet 1 11/07/2024 ActiveStart: 17-13-6253pdox 1 tablet by mouth twice dailyhydrochlorothiazide-lisinopril 12.5 mg-20 mg Tab 1 tab(s), Oral, BID, Refill(s) 0 Start Date: 03/20/24 Status: Ordered Repeat number: 124 hr isosorbide mononitrate 60 mg extended release oral tablet (20 sources)Nitrate VasodilatorStart: 16-47-3609xscg 1 tablet by mouth every twenty-four hoursStart: 03-20-2024 End: 47-83-5075paqp 1 tablet by mouth once daily in the morningisosorbide mononitrate 60 mg ER Tab 60 mg = 1 tab(s), Oral, qAM, Refills(s) 0 Start Date: 03/20/24 Status: Ordered Medication Dispense Status: Completed Total Allowed Fills: 1 Fills Dispensed: 024 hr metoprolol succinate 100 mg extended release oral tablet (20 sources)beta-Adrenergic BlockerStart: 82-18-7929holt 1 tablet by mouth once dailymetoprolol 100 mg ER Tab 100 mg = 1 tab(s), Oral, Daily, Refills(s) 0 Start Date: 03/20/24 Status: Ordered Medication Dispense Status: Completed Total Allowed Fills: 1 Fills Dispensed: 0Start: 08-31-2023 End: 36-42-0866zyvl 1 tablet by mouth every twenty-four hoursomeprazole 20 mg delayed release oral capsule (20 sources)Proton Pump InhibitorStart: 03-20-2024 End: 12-38-1928byaa 1 capsule by mouth once dailyOzempic, 1 MG/DOSE, 4 MG/3ML solution pen-injector (1 source)Start: 61-89-2504nstxcc 1 mg by subcutaneous injection every week Ozempic, 1 MG/DOSE, 4 MG/3ML solution pen-injector Indications: Type 2 diabetes mellitus without complication, without long-term current use of insulin (CMS/HCC) INJECT 1mg SUBCUTANEOUSLY (UNDER THE SKIN) EVERY WEEK 3 mL 12 11/07/2024 ActivePARoxetine hydrochloride 40 mg oral tablet (20 sources)Serotonin Reuptake InhibitorStart: 03-20-2024 End: 18-52-9592jrsh 1 tablet by mouth oncesemaglutide (Ozempic, 1 MG/DOSE,) 4 MG/3ML solution pen-injector (4 sources)Start: 04-76-6948okhtbq 1 mg by subcutaneous injection every week semaglutide (Ozempic, 1 MG/DOSE,) 4 MG/3ML solution pen-injector Inject 1 mg under the skin 1 (one)time per week 11/07/2024 ActiveSemaglutide,0.25 or 0.5MG/DOS, (Ozempic, 0.25 or 0.5 MG/DOSE,) 2 MG/3ML solution pen-injector (10 sources)Start: 08-22-2024 End: 16-11-5601Czxswyljugo,0.25 or 0.5MG/DOS, (Ozempic, 0.25 or 0.5 MG/DOSE,) 2 MG/3ML solution pen-injector Indications: Type 2 diabetes mellitus without complication, without long-term current use of insulin (CMS/HCC) Inject 0.5 mg under the skin 1 (one) time per week 3 mL 2 08/22/2024 11/07/2024 Discontinued (Dose adjustment)Start: 74-82-7275Xbwciqwdtwu,0.25 or 0.5MG/DOS, (Ozempic, 0.25 or 0.5 MG/DOSE,) 2 MG/3ML solution pen-injector Indications: Type 2 diabetes mellitus without complication, without long-term current use of insulin (CMS/ HCC) Inject 0.5 mg under the skin 1 (one) time per week 3 mL 2 08/22/2024 Active Start: 08-22-2024 End: 46-78-4798Clbrhhjhnkz,0.25 or 0.5MG/DOS, (Ozempic, 0.25 or 0.5 MG/DOSE,) 2 MG/3ML solution pen-injector Indications: Type 2 diabetes mellitus without complication, without long-term current use of insulin (CMS/HCC) Inject 0.5 mg under the skin 1 (one) time per week 3 mL 2 08/22/2024 09/21/2024 Active testosterone undecanoate 237 mg oral capsule (8 sources)AndrogenStart: 12-18-2024 End: 96-73-0409Zydyrgtnuxzx Undecanoate (Jatenzo) 237 MG capsule Take 237 mg by mouth 12/18/2024 05/13/2025 Discontinued (Therapy completed) Completed/Discontinued Medications MedicationDrug Class(es)DatesSig (Normalized)Sig (Original)amLODIPine 10 mg oral tablet (20 sources)Dihydropyridine Calcium Channel BlockerStart: 03-20-2024 End: 42-35-1345kbsv 1 tablet by mouth once dailyAmlodipine 10 mg tablet Discontinued 10 MG PO Daily June 25, 2025 12:00am August 14, 2025 9:13pm anastrozole 1 mg oral tablet (10 sources)Aromatase InhibitorStart: 06-25-2025 End: 95-35-9609kyct 1 tablet by mouth once dailyAnastrozole 1 mg tablet Discontinued 1 MG PO Daily June 25, 2025 12:00am August 13, 2025 10:00am Start: 12-18-2024 End: 16-93-3572ilej 1 tablet by mouth every weekanastrozole 1 mg Tab 1 mg = 1 tab(s), Oral, qWeek, X 90 day(s), # 13 tab(s), Refills(s) 1, Pharmacy: [id number], 182, cm, 12/18/24 11:48:00 EST, Height/Length Dosing, 139, kg, 12/18/24 11:48:00 EST, Weight Dosing Start Date: 12/18/24 Stop Date: 06/16/25 Status: Ordered Quantity: 13.0 Unit: tab(s) Repeat number: 2metFORMIN hydrochloride 850 mg oral tablet (20 sources)BiguanideStart: 06-25-2025 End: 50-34-6668ykvf 1 tablet by mouth once dailyMetformin 850 mg tablet Discontinued 850 MG PO Daily June 25, 2025 12:00am August 10, 2025 7:48pm Start: 03-20-2024 End: 59-16-0469wpma 1 tablet by mouth twice dailyMetformin 850 mg tablet Discontinued 850 MG PO Twice daily August 10, 2025 12:00am August 14, 2025 9:13pmStart: 03-20-2024 End: 49-36-7100ockm 1 tablet by mouth in the morningmetFORMIN (Glucophage) 850 MG tablet Indications: Type 2 diabetes mellitus without complication, without long-term current use of insulin ([facility]) Take 1 tablet (850 mg) by mouth in the morning and 1 tablet (850 mg) in the evening. Take with meals. 180 tablet 02/10/2025 ActiveOzempic, 0.25 or 0.5 MG/DOSE, 2 MG/3ML solution pen-injector (9 sources)Start: 05-23-2024 End: 37-22-8444Vzdpaoa, 0.25 or 0.5 MG/DOSE, 2 MG/3ML solution pen-injector Indications: Type 2 diabetes mellitus without complication, without long-term current use of insulin (CMS/HCC) INJECT 0.25mg SUBCUTANEOUSLY EVERY WEEK for FOUR weeks; then INJECT 0.5mc SUBCUTANEOUSLY EVERY WEEK 3 mL 05/23/2024 08/21/2024 Discontinued (Reorder)Start: 54-98-6821Wpdcmbp, 0.25 or 0.5 MG/DOSE, 2 MG/3ML solution pen-injector Indications: Type 2 diabetes mellitus without complication, without long-term current use of insulin (CMS/HCC) INJECT 0.25mg SUBCUTANEOUSLY EVERY WEEK for FOUR weeks; then INJECT 0.5mc SUBCUTANEOUSLY EVERY WEEK 3 mL 05/23/2024 Active1 mg dose 1.5 ml semaglutide 1.34 mg/ml pen injector (3 sources)Start: 11-07-2024 End: 59-54-0553dhernn 1 mg by subcutaneous injection every weeksemaglutide (Ozempic) 2 MG/1.5ML solution pen-injector Indications: Type 2 diabetes mellitus without complication, without long-term current use of insulin (CMS/HCC) Inject 1 mg under the skin 1 (one) time per week 2 each 11/07/2024 11/07/2024 DiscontinuedStart: 26-00-7395osohvn 1 mg by subcutaneous injection every week semaglutide (Ozempic) 2 MG/1.5ML solution pen-injector Indications: Type 2 diabetes mellitus without complication, without long-term current use of insulin (CMS/HCC) Inject 1 mg under the skin 1 (one) time per week 2 each 11/07/2024 ActiveSemaglutide (4 sources)Start: 06-25-2025 End: 46-33-0501pqmfpc 1 mg by subcutaneous injection every weekSemaglutide (Ozempic) 1 mg/dose (4 mg/3 mL) pen injector Discontinued 1 MG SUBCUT every week June 25, 2025 12:00am August 13, 2025 10:01amStart: 54-81-4186hwponu 1 mg by subcutaneous injection every weekSemaglutide (Ozempic) 1 mg/dose (4 mg/3 mL) pen injector Active 1 MG SUBCUT every week June 25, 2025 12:00am Complies with drug therapyspironolactone 25 mg oral tablet (11 sources)Aldosterone AntagonistStart: 06-25-2025 End: 18-27-0640mjax 1 tablet by mouth once dailySpironolactone 25 mg tablet Discontinued 25 MG PO Daily June 25, 2025 12:00am August 10, 2025 7:49pm Start: 03-14-2025 End: 03-14-2026 Problems Active Problems Problem ClassificationProblemDateDocumented DateEpisodic/ChronicAlcohol-related disorders (4 sources)History of alcohol abuse; Translations: [Alcohol abuse, in remission] 64-51-5196DyfklpzCmppvtv obstructive pulmonary disease and bronchiectasis (20 sources)Suspected respiratory disease; Translations: [Chronic obstructive pulmonary disease, unspecified]Onset: 910978-57-4476FawtoneXllrvoyu atherosclerosis and other heart disease (20 sources)Atherosclerotic heart disease of [place] coronary artery without angina pectoris; Translations: [Coronary arteriosclerosis]Onset: 01-12-2022 ChronicDeficiency and other anemia (6 sources)Hzaxvo30-43-5587CvyjixezQbpoltqz mellitus with complications (10 sources)Type 2 diabetes mellitus; Translations: [Type 2 diabetes mellitus with other specified complication]Onset: 228912-41-6503OydslduTyttrkwz mellitus without complication (20 sources)Diabetes mellitus; Translations: [Type 2 diabetes mellitus]Onset: 11-13-2020 Resolved: 600216-19-0888LyivoqkHniokepfa of lipid metabolism (20 sources)Dyslipidemia; Translations: [Hyperlipidemia]Onset: 11-13-2020 Resolved: 524975-96-6546FzbofbaFozpsfhwvh disorders (20 sources)Gastroesophageal reflux disease; Translations: [Gastro-esophageal reflux disease without esophagitis]Onset: 667237-35-7918NppshcfUoiamgqln hypertension (20 sources)Benign essential hypertension; Translations: [Hypertensive disorder] Onset: 05-13-2013 Resolved: 140827-41-9066IcthvoaNybg disorders (20 sources)Depressive disorder; Translations: [Dysthymic disorder]Onset: 11-13-2020 Resolved: 582630-02-1582TxouoflEzbtp diseases of veins and lymphatics (15 sources)Calcified lymph nodes; Translations: [Other specified noninfective disorders of lymphatic vessels and lymph nodes]Onset: ChronicOther endocrine disorders (1 source)Testicular hypofunction; Translations: [Testicular hypofunction]Onset: 01-46-6838UherheyVefbv endocrine disorders (18 sources)Male hypogonadism; Translations: [Testicular hypofunction]Onset: 038438-59-0587QjvcnmhYyopf endocrine disorders (1 source)Testicular hypofunctionOnset: 93-07-0519SajlxhsMhftk hereditary and degenerative nervous system conditions (20 sources)Impaired cognition; Translations: [Mild cognitive impairment, so stated]Onset: 986103-99-6740UzrhpagHrobt lower respiratory disease (15 sources)Fibrosis of lung; Translations: [Pulmonary fibrosis, unspecified] Onset: 348285-57-2896EkatkmiOimdw lower respiratory disease (2 sources)Shortness of breath; Translations: [Shortness of breath]Onset: 95-78-7846MyqwqmzyLuchh lower respiratory disease (2 sources)Snoring; Translations: [Snoring]45-61-5089UqomvgzxEhhhx male genital disorders (20 sources)Male erectile dysfunction, unspecified; Translations: [Erectile dysfunction]Onset: 49-33-1560RysomxyDtfcp male genital disorders (20 sources)Acquired buried penis; 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]Onset: 10-08-7610NertzxwImuyk male genital disorders (1 source)Acquired buried penisOnset: 86-16-4849LwdrrmsSwfkm nervous system disorders (6 sources)Impaired cognition; Translations: [Other symptoms and signs involving cognitive functions and awareness]71-85-7277DswiiymqPljza nutritional; endocrine; and metabolic disorders (8 sources)Morbid obesity; Translations: [Morbid (severe) obesity due to excess calories]Onset: 31-70-2895EnltdslUszdj nutritional; endocrine; and metabolic disorders (20 sources)Body mass index 40+ - severely obese; Translations: [Body mass index (BMI) 40.0-44.9, adult]Onset: 685648-52-0722LpztmenKxtqp nutritional; endocrine; and metabolic disorders (6 sources)Obese class QPB14-19-9140TawipmvGmdrz nutritional; endocrine; and metabolic disorders (14 sources)Obesity caused by energy imbalance; Translations: [Morbid (severe) obesity due to excess calories]Onset: 966707-57-5186CzstogfTtyod nutritional; endocrine; and metabolic disorders (2 sources)Obesity; Translations: [Obesity, unspecified]13-95-3939Ndfqelu Residual codes; unclassified (20 sources)Obstructive sleep apnea syndrome; Translations: [Obstructive sleep apnea (adult) (pediatric)]Onset: 930339-81-4060SfmebovKejuvftv codes; unclassified (2 sources)Hypersomnia; Translations: [Hypersomnia, unspecified]06-25-2025 ChronicResidual codes; unclassified (5 sources)Reduced libido; Translations: [Decreased libido]Onset: 08-28-2024 EpisodicResidual codes; unclassified (2 sources)Localized edema; Translations: [Localized edema]Onset: 03-14-2025 EpisodicSpondylosis; intervertebral disc disorders; other back problems (10 sources)Chronic low back pain; Translations: [Chronic low back pain]Episodic Unclassified (7 sources)Patient encounter -39-2297Dfupdwuuklpc (4 sources)Calcified granuloma of tqbv54-10-5127Smyawvrfoyvv (11 sources)Patient on antidepressant monitoring planOnset: 412819-00-6487 Unclassified (4 sources)M54.50 - Low back pain, unspecified,G89.29 - Other chronic pain Past or Other Problems Problem ClassificationProblemDateDocumented DateEpisodic/ChronicAbdominal hernia (15 sources)Umbilical hernia; Translations: [Umbilical hernia without obstruction or gangrene]Onset: 119873-33-0212NytpfaxtAlymk bronchitis (20 sources)Acute bronchitis co-occurrent with wheeze; Translations: [Acute bronchitis, unspecified]Onset: 11-16-2023 Resolved: 697283-32-7755NouxtbgwQgfaypyb mellitus without complication (5 sources)Prediabetes; Translations: [Impaired fasting glycemia]Onset: 037040-34-0332WglkxyxeHvjg disorders (20 sources)Mood disordersOnset: 05-23-2024 Resolved: 856970-57-9060Upvsbnpymol chest pain (8 sources)Chest pain; Translations: [Chest pain, unspecified]Onset: 03-11-2025 87-00-4127IccfrtbhXeast and unspecified benign neoplasm (20 sources)Pigmented skin lesion ; Translations: [Melanocytic nevi, unspecified]Onset: 01-25-2024 Resolved: 101328-80-3996GqdedtilYswxp circulatory disease (4 sources)Suspected respiratory disease; Translations: [Other specified symptoms and signs involving the circulatory and respiratory systems]Onset: 730709-84-8456YweacxytVotft ear and sense organ disorders (20 sources)Excessive cerumen in ear canal ; Translations: [Impacted cerumen, bilateral]Onset: 489794-20-3535KhrllwlmEyxlx lower respiratory disease (5 sources)Other forms of dyspnea; Translations: [OTHER FORMS OF DYSPNEA]Onset: 80-28-5545HnquernvFvvmp lower respiratory disease (20 sources)Solitary nodule of lung; Translations: [Solitary pulmonary nodule] Onset: 472363-77-7193IphobdidArrtf lower respiratory disease (15 sources)Calcified granuloma of lung; Translations: [Other disorders of lung] Onset: 599763-61-2809GnxtgwoqBjmwq screening for suspected conditions (not mental disorders or infectious disease) (17 sources)Screening for malignant neoplasm of colon done; Translations: [Encounter for screening for malignant neoplasm of colon]Onset: 04-16-2024 EpisodicOtitis media and related conditions (20 sources)Acute suppurative otitis media without spontaneous rupture of ear drum; Translations: [Acute suppurative otitis media without spontaneous rupture of ear drum, bilateral]Onset: 11-16-2023 Resolved: 461021-93-2183QkmkpyhwLsrltqcr codes; unclassified (20 sources)Sleep apnea; Translations: [Sleep apnea, unspecified]Onset: 04-16-2012 Resolved: 935227-46-8445ApuubdzRwzemyaf codes; unclassified (4 sources)Amnesia; Translations: [Other amnesia]87-08-6268WveujyxuUptdosfjb and history of mental health and substance abuse codes (15 sources)Ex-tobacco user; Translations: [Personal history of nicotine dependence]Onset: 606361-79-3756Tbmgjpre Results Test NameValueInterpretationReference RangeFacilityTestost Totalon 09-26-2025 Testoster Ofh241 ng/fTNst720-261SghijeBluffton HospitalComment on above: Result Comment: Adult male reference interval is based on a population of healthy nonobese males (BMI <30) between 19 and 39 years old. chelsie Martin.al. JCEM 2017,102;6927-5896. PMID: 25491709. Performed at: [facility] [id number] [place], [place] [id number] PhD Isabel Learyformed By: #### [id number] #### Jorge [facility] [address] [place], [place] [address]Rolywnkzrf Visit Summaryon 44-88-1613Aqlwyuaqtt Visit Summary Ambulatory Visit Summary FUNMI JULIO [...] signed up for this yet, please contact [employer] at [phone] to get signed up today. Language Information Language assistance services are available as needed. NormalBluffton HospitalHematocriton 09-24-2025 Hematocrit (Bld) [Volume fraction]42.4 %Pefutz02.7-49.0Bluffton HospitalComment on above:Performed By: #### [id number] #### Jorge [facility] [address] [place] [address] 78554NxU1v HPLC (Bld) [Mass fraction]Ordered By: Lela Solorzano on 10-98-2149CnD1d (Bld) [Mass fraction]6.9 %[facility] CenterHbA1c (Bld) [Mass fraction]on 48-25-7110Fqxdwqevjgmxcm and review of laboratory resultsAbBronson Methodist Hospital HealthcareLaboratory - Hematology and Cell countson 11-56-8813PoH2e (Bld) [Mass fraction]7.7 %[facility] 45-43-281702Qxbiogkvu echo result from 04/04/2025: and labs from 04/02/2025: MD Karine Funes MA His echocardiogram and blood testing were okay. Continue same medications. Follow-up as planned unless there is need to see me before that. Patient informed. He verbalized understanding.[facility] ECHO DOPPLER COMPLETEon [id number] [address] Cardiology Report Signed Patient: FUNMI JULIO MR#: [id number] : 1955 Acct:[id number] Age/Sex: 69 / M ADM Date: 04/04/25 Loc: CARD Attending Dr: RONDA GAO Ordering Physician: RONDA GAO Date of Service: 04/04/25 Procedure(s): CA echo doppler complete Accession Number(s): [id number] cc: Lela Solorzano RACE ENGINE BUILDER; RONDA GAO Patient Name Site Name FUNMI JULIO [facility] Account No Medical Record Number Age Sex Date Time [id number] TBH:[id number] 69 M 04/04/2025 09:02 At the Request [...] Area (VTI): 4.92 cm2, 4.92 cm2 Deceleration [place]: Pressure Half-Time: Peak Velocity(Antegrade Flow): 1.51 m/s [...] not included)...TBHRadiology, Radiologist, MD - 04/04/2025 [place] [address] Cardiology Report Signed Patient: FUNMI JULIO MR#: [id number] : 1955 Acct:[id number] Age/Sex: 69 / M ADM Date: 04/04/25 Loc: CARD Attending Dr: RONDA GAO Ordering Physician: RONDA GAO Date of Service: 04/04/25 Procedure(s): CA echo doppler complete Accession Number(s): [id number] cc: Lela Solorzano RACE ENGINE BUILDER; RONDA GAO Patient Name Site Name FUNMI JULIO [facility] Account No Medical Record Number Age Sex Date Time [id number] [facility]:[id number] 69 M 04/04/2025 09:02 At the Request [...] Area (VTI): 4.92 cm2, 4.92 cm2 Deceleration [place]: Pressure Half-Time: Peak Velocity(Antegrade Flow): 1.51 m/s [...] M.D. Signed By: 04/04/251813 DD/ 11 TD/TT: It Risk Analyst: [facility] SouthRadiology Study observation (narrative)Cox SouthCA ECHO DOPPLER COMPLETEOrdered By: Radiologist Radiology on 70-02-7662IJZJCox South Work Phone: aLL BASIC METABOLIC PANELon 09-42-4795Swvgx gap [Moles/Vol]12 mmol/LNOMS HealthcareCalcium [Mass/Vol]9.1 mg/dL8.5 - 10.1 mg/dL NOM HealthcareChloride [Moles/Vol]98 mmol/L98 - 107 mmol/LNOMS HealthcareCO2 [Moles/Vol]30 mmol/L21.0 - 32.0 mmol/LNOMS HealthcareCreatinine [Mass/Vol]0.97 mg/dL0.70 - 1.30 mg/dLNOGA HealthcareGFR/1.73 sq M.predicted CKD-EPI (S/P/Bld) [Vol rate/Area]>60>=60 mL/min/1.73m 2NOMS HealthcareGlucose [Mass/Vol]145 mg/dL High74 - 106 mg/dLNOGA HealthcareInterpretation and review of laboratory results AbnormalNOGA HealthcarePotassium [Moles/Vol]4 mmol/L3.5 - 5.1 mmol/LNOMS HealthcareSodium [Moles/Vol]136 mmol/L136 - 145 mmol/LNOMS HealthcareTBH EGFR- NON AF RUSSIAN>60>=60 mL/min/1.73m 2NOMS HealthcareUrea nitrogen [Mass/Vol]8 mg/dL7.0 - 18.0 mg/dLNOGA HealthcareUrea nitrogen/Creatinine [Mass ratio]8.2 mg/mgNOGA HealthcareALL PRO BNPon 57-86-6686TL PRO B TYPE NATRIURETIC PEPT24 pg/mLNINF - 900.0 pg/mLNOMS HealthcareCT CHEST WO CONon 52-69-0587[address] [address] [address] Scan Report Signed Patient: FUNMI JULIO MR#: [id number] : 1955 Acct:[id number] Age/Sex: 69 / M ADM Date: 04/02/25 Loc: CT Attending Dr: Fracisco Morrison D.O. Ordering Physician: Fracisco Morrison D.O. Date of Service: 04/02/25 Procedure(s): CT chest wo con Accession Number(s): [id number] cc: Lela Solorzano NP [address] [address] Patient Name: FUNMI JULIO MRN: [id number]:[id number] date: 1955 Sex: M Assigned Patient Location: CT Current Patient Location: CT Accession/Order Number: [id number] Exam Date: 04/02/2025 09:52 Report Date: 04/02/2025 [...] Jr., D.O. 04/02/2025 9:55 AM Dictation Location: [place] [address] Electronically authenticated by: [id number] Y Date: 04/02/2025 09:55 Dictated By: John Sneed M.D. Signed By: 04/02/2557 DD/ 4 TD/TT: It Risk Analyst:TBHRadiology, Radiologist, - 04/02/2025 [place] [address] CT Scan Report Signed Patient: FUNMI JULIO MR#: [id number] : 1955 Acct:[id number] Age/Sex: 69 / M ADM Date: 04/02/25 Loc: CT Attending Dr: Fracisco Morrison D.O. Ordering Physician: Fracisco Morrison D.O. Date of Service: 04/02/25 Procedure(s): CT chest wo con Accession Number(s): [id number] cc: Lela Solorzano NP [address] [place] [address] Patient Name: FUNMI JULIO MRN: [facility]:[id number] date: 1955 Sex: M Assigned Patient Location: CT Current Patient Location: CT Accession/Order Number: [id number] Exam Date: 04/02/2025 09:52 Report Date: 04/02/2025 [...] Jr., D.OHumera 04/02/2025 9:55 AM Dictation Location: [place] [address] Electronically authenticated by: [id number] Y Date: 04/02/2025 09:55 Dictated By: John Sneed M.D. Signed By: 04/02/25 0957 DD/ 0955 TD/TT: It Risk Analyst: [facility] HOSPITALTeresa HealthcareRadiology Study observation (narrative)[facility] HealthcareCT CHEST WO CONOrdered By: Radiologist Radiology on 85-41-7116WRKU Healthcare Work Phone: no Panel Informationon 19-67-6564CZQYKIDYYQBXR HealthcareAmbulatory Visit Summaryon 77-23-5590Yjhtaouepj Visit Summary Ambulatory Visit Summary FUNMI JULIO [...] 8:30 AM EDT Where: [facility] [address] You Need to Schedule the Following [...] us for your ca (more content not included)...[facility] HospitalUrology Office/Clinic Noteon 29-92-2605Ihbtrob Office/Clinic NoteUrology Office/Clinic Note Chief Complaint 3 [...] 1. 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)...NormalBluffton HospitalComment on above:Result Comment: Electronically Signed By: Tania Mariscal MD\.br\Date and Time Signed: 03/19/25 10:57EDT\.br\Electronically Co-Signed By: Aditi Mora\.br\Date and Time Co-Signed: 03/19/25 10:49 EDT\.br\Electronically Co-Signed By: Aditi Mora\.br\Date and Time Co- Signed: 03/19/25 10:55 EDTOffice Visiton 01-98-7761Ajdlgg-up [id number] Funmi Julio 1955 M Date Provider Department Center 03/14/2025 RONDA MÉNDEZ EVIE Borrego [facility] Family History Problem Relation Age of Onset Diabetes Mother Hypertension Brother Heart attack Other Family Status - Relation Status Age at Mother Father Sister Alive Brother Other Level of Service:[address] [place] OFFICE/OUTPATIENT ESTABLISHED MOD MDM 30 [facility] HospitalTestost Totalon 34-73-2442Xkwufdqhsskl [Mass/Vol]348 ng/dLInvalid Interpretation Dsam209-405JvlblmBluffton Hospital Comment on above:Result Comment: Adult male reference interval is based on a population of healthy nonobese males (BMI <30) between 19 and 39 years old. Veronica et.al. JCEM 2017,102;7101-2630. PMID: 75058636. Performed at: [facility] [address] [place], [place] [id number] PhD Isabel GodwinPerformed By: #### [id number] #### Jorge [facility] [address] [place] [address] [place] [address]ASS CBC WITH AUTO DIFFon 50-90-5882OMBJAHGUS ABSOLUTE AUTO0.1 NOM HealthcareBasophils/100 WBC (Bld)0.6 %0.2 - 2.0 %NOM [facility] Eosinophils/100 WBC (Bld)2.5 %0.9 - 7.0 %[facility] HealthcareErythrocyte distribution width (RBC) [Ratio]14.1 %11.0 - 15.0 %NOM HealthcareHematocrit (Bld) [Volume fraction]43.6 %42.0 - 54.0 %Cox SouthHemoglobin (Bld) [Mass/Vol]14.5 g/dL 14.0 - 18.0 g/dLCox SouthIMMATURE GRANULOCYTES ABS AUTO0.05HighNOFulton Medical Center- FultonImmature granulocytes/100 WBC (Bld)0.5 %0.0 - 0.5 %[facility] Interpretation and review of laboratory resultsAbnormalNOFulton Medical Center- Fulton LYMPHOCYTES ABSOLUTE AUTO3.6NOFulton Medical Center- FultonLymphocytes/100 WBC (Bld)34.5 %20.5 - 60.0 %[facility] HospitalH (RBC) [Entitic mass]29.1 pg25.9 - 34.0 pgNOSainte Genevieve County Memorial HospitalHC (RBC) [Mass/Vol]33.3 g/dL29.9 - 35.2 g/dLCox SouthMCV (RBC) [Entitic vol]87.4 fL80.0 - 94.0 fLOREM COMMUNITY [facility]PITAL HealthcareMONOCYTES ABSOLUTE AUTO0.7NOMS HealthcareMonocytes/100 WBC (Bld)6.6 %1.7 - 12.0 %Cox SouthNEUTROPHILS ABSOLUTE AUTO5.8NOMS HealthcareNeutrophils/100 WBC (Bld)55.3 %43.0 - 75.0 %Cox SouthPlatelet mean volume (Bld) [Entitic vol]8.7 fLLow9.5 - 13.5 fLNOMS Henry County HospitalTBH EO #0.3NOMS [facility] HospitalTB FTO538YNSA [facility] HospitalTB RBC4.99NOMS [facility] HospitalTB WBC10.4NOMS HealthcareCLINISYNCNOMS HealthcareCHEMISTRYOrdered By: SYSTEM SYSTEM on 28-33-3308Isvwyftn specific Ag [Mass/Vol]1.5 ng/mLNormal0.1 - 3.5 ng/mLRemisol ChemComment on above:Interpretive Data: The concentration of PSA determined by different manufacturers can vary due to differences in assay methods and reagent specificity. Values obtained from different assay methods cannot be used interchangeably. The methodology used for this result was chemiluminescence using [employer]'s Access Hybritech PSA reagent.PSA Total on 83-84-2422Vefslzla specific Ag [Mass/Vol]1.5 ng/mLNormal0.1-3.5Fisher [facility] Pratt HospitalComment on above:Result Comment: The concentration of PSA determined by different manufacturers can vary due to differences in assay methods and reagent specificity. Values obtained from different assay methods cannot be used interchangeably. The methodology used for this result was chemiluminescence using [employer]'s Access Hybritech PSA reagent.Performed By: #### [id number] #### Jorge [facility] [address], [place] [address]Txiilullsr Visit Summaryon 57-37-2086Altfieqqfu Visit Summary Ambulatory Visit Summary FUNMI JULIO [...] AM EDT With: Where: [facility] [address] [place] [address]- Monday 10:00 AM EDT With: Davey PARISH, Tania Angel Where: [facility] [address] [place] [address]- You Need to Schedule the Following Appointments [...] Duration: 90 Days Refills: 1 Pickup at [facility] New testosterone (Jatenzo 237 mg oral capsule) 1 Capsules By Mouth 2 times a day Refills: 11 Pickupat [facility] Unchanged albuterol (Albuterol (Eqv-Ventolin HFA) [...] physician if questions or concerns Pharmacy Information [facility]: [address] [place], [place] [id number] [phone] Allergies oxyCODONE (SOB - Shortness of breath, Hives) Problems Ongoing - Any problem that you are currently receiving treatment for. Acquired buried penis A (more content not included)...[facility] HospitalUrology Office/Clinic Noteon 16-43-5728Ussbeep Office/Clinic NoteUrology Office/Clinic Note Chief Complaint testosterone [...] Estrogen 98, LH 10.2, Prolactin 10.9 Testosterone (264-536) 09/03/24 - 242 09/10/24 - 220 Discussed [...] Diabetes Dyslipidemia ED (erectile (more content not included)...[facility] Comment on above:Result Comment: Electronically Signed By: Tania Mariscal MD\.br\Date and Time Signed: 12/18/24 12:10EST\.br\Electronically Co-Signed By: Eileen Moody\.br\Date and Time Co-Signed: 12/18/24 12:05 ESTALL LUTEINIZING HORMONEon 45-69-9041OKRVKZWNFLO HORMONE(LH)10.2AbnormalNOMS HealthcareALL TESTOSTERONEon 57-38-5075Cobhbmtkrznn [Mass/Vol]220 ng/dLAbnormal 264 - 916 ng/dLNOMS HealthcareComment on above:Adult male reference interval is based on a population of healthy nonobese males (BMI <30) between 19 and 39 years old. Veronica, et.al. JCEM 2017,102;7265-4078. PMID: 87810495. No Panel Informationon 06-09-1398Svmgmgfcsdrdjj and review of laboratory results AbnormalNOMS HealthcareCLINISYNCNOMS HealthcareTBH ESTROGENon 09-15-2024 ESTROGENS, TOTAL98 pg/mL56 - 213 pg/mLNOMS HealthcareComment on above: Prepubertal <40 Performed at: - [address] [id number] Command Center Analyst: Wilber Reina MD, Phone: [phone] [facility] PROLACTINon 89-45-0798UJXJPMLPS72.9 ng/mL3.6 - 25.2 ng/mLNOMS Healthcare Comment on above:Performed at: - [address] [id number] Command Center Analyst: Tato Hall PhD, Phone: [phone] ALL TESTOSTERONEon 07-23-2519Anwxcuxtrxhgml and review of laboratory results AbnormalNOMS HealthcareTestosterone [Mass/Vol]242 ng/jLBhxequhh441 - 916 ng/dL NOMS HealthcareComment on above:Adult male reference interval is based on a population of healthy nonobese males (BMI <30) between 19 and 39 years old. Veronica et.al. JCEM 2017,102;5408-9104. PMID: 88505837. Performed at: - Labco[address] [id number] Command Center Analyst: Tato Hall PhD, Phone: [phone] [facility] HealthcareAmbulatory Visit Summaryon 34-82-3533Emmctxacha Visit SummaryAmbulatory Visit Summary FUNMI JULIO :1955 [...] PARISH, Tania Angel Where: [facility] [address] [place] [address]- You Need to Schedule the Following Appointments Follow Up with Davey PARISH, Tania Angel, URL, URO When: Where: [address] [place] [address] [phone] Medications What How Much When Instructions Unchanged [...] What are the cau (more content not included)...[facility] Office/Clinic Noteon 19-18-9823Pilftzh Office/Clinic NoteUrology Office/Clinic Note Chief Complaint New [...] testosterone (7-11 AM). Plans to go to [facility]. -If low, will confirm with repeat [...] Risks of elevat (more content not included)... [facility] HospitalComment on above:Result Comment: Electronically Signed By: Davey PARISH, Tania Angel\.silvio\Date and Time Signed: 08/28/24 11:36EDTMRI HEAD/BRAIN WO/W CONTRon 82-08-7195Nnb[address] [address] Magnetic Resonance Report Signed Patient: FUNMI JULIO MR#: [id number] : 1955 Acct:[id number] Age/Sex: 68 / M ADM Date: 07/15/24 Loc: LAB Attending Dr: Tania Lucero D.O. Ordering Physician: Tania Lucero D.O. Date of Service: 07/15/24 Procedure(s): MR head/brain wo/w con Accession Number(s): [id number] cc: Shaikh Roxi Acevedo; Tania Lucero D.O. [place] [address] Patient Name: FUNMI JULIO MRN: [facility]:[id number] date: 1955 Sex: M Assigned Patient Location: LAB Current Patient Location: LAB Accession/Order Number: [id number] Exam Date: 07/15/2024 09:01 Report Date: 07/15/2024 [...] M.D. Signed By: 07/15/241836 DD/ 34 TD/TT: It Risk Analyst:MAREKadiology, Radiologist, - 07/15/2024 [place] [address] Magnetic Resonance Report Signed Patient: FUNMI JULIO MR#: [id number] : 1955 Acct:[id number] Age/Sex: 68 / M ADM Date: 07/15/24 Loc: LAB Attending Dr: Tania Lucero D.O. Ordering Physician: Tania Lucero D.O. Date of Service: 07/15/24 Procedure(s): MR head/brain wo/w con Accession Number(s): [id number] cc: Shaikh Roxi Acevedo; Tania Lucero D.O. [place] [address] Patient Name: FUNMI JULIO MRN: [id number] date: 1955 Sex: M Assigned Patient Location: LAB Current Patient Location: LAB Accession/Order Number: [id number] Exam Date: 07/15/2024 09:01 Report Date: 07/15/2024 [...] M.D. Signed By: 07/15/241836 DD/ 34 TD/TT: It Risk Analyst: ADRIAN HealthcareRadiology Study observation (narrative)[facility]ty HospitalI HEAD/BRAIN WO/W CONTROrdered By: Radiologist Radiology on 91-20-0879GBLI [employer] Work Phone: [facility]ph[facility] 40-70-8710YvcwzbnytZjodovatv From: Tracy Walls LPN To: N - Clinical; Sent: 05/31/2024 09:11:26 EDT Show up: 04/29/2034 07:00:00 EDT Subject: colonoscopy recall Due Date/Time: 05/29/2034 07:00:00 EDT Reminder/Recall Patient due for screening colonoscopy 05/29/2034.[facility] HospitalInsurance Correspondenceon 60-56-5466Vvktcwpvp Correspondence [id number]#1.00TIFProvidence HospitalConsent for Procedure/Surgeryon 78-68-7327Elsdtgx for Procedure/Surgery [id number]#1.00TIFProvidence HospitalFacesheeton 52-60-3018Zrgjwklja [id number]#1.00TIFProvidence HospitalAmbulatory Visit Summaryon 73-18-4107Opftdgqgra Visit Summary FUNMI JULIO :1955 Visit Date:04/16/2024 [...] you for choosing us for your care. [facility] HospitalCT CHEST WO CONon 06-96-9625Htg [address] [address] [address] Scan Report Signed Patient: FUNMI JULIO MR#: [id number] : 1955 Acct:[id number] Age/Sex: 68 / M ADM Date: 03/06/24 Loc: CT Attending Dr: Shaikh Kristina Diane Ordering Physician: Shaikh Roxi Acevedo Date of Service: 03/06/24 Procedure(s): CT chest wo con Accession Number(s): [id number] cc: Shaikh Roxi Acevedo [address] [address] Patient Name: FUNMI JULIO MRN: [id number] date: 1955 Sex: M Assigned Patient Location: CT Current Patient Location: CT Accession/Order Number: [id number] Exam Date: 03/06/2024 08:46 Report Date: 03/06/2024 [...] M.D. Signed By: 03/06/24950 DD/ 7 TD/TT: It Risk Analyst:TBHRadiology, Radiologist, - 03/06/2024 [place] [address] CT Scan Report Signed Patient: FUNMI JULIO MR#: [id number] : 1955 Acct:[id number] Age/Sex: 68 / M ADM Date: 03/06/24 Loc: CT Attending Dr: Shaikh Kristina Diane Ordering Physician: Shaikh Roxi Acevedo Date of Service: 03/06/24 Procedure(s): CT chest wo con Accession Number(s): [id number] cc: Shaikh Roxi Acevedo [place] [id number] Patient Name: FUNMI JULIO MRN: [facility]:[id number] date: 1955 Sex: M Assigned Patient Location: CT Current Patient Location: CT Accession/Order Number: [id number] Exam Date: 03/06/2024 08:46 Report Date: 03/06/2024 [...] M.D. Signed By: 03/06/24950 DD/ 7 TD/TT: It Risk Analyst: [facility] HealthcareRadiology Study observation (narrative)Cox SouthCT CHEST WO CONOrdered By: Radiologist Radiology on 24-52-0034AQDV Healthcare Work Phone: XR CHEST 2Von 99-87-4127[place]hs[place] [address] XRay Report Signed Patient: FUNMI JULIO MR#: [id number] : 1955 Acct:[id number] Age/Sex: 68 / M ADM Date: 01/11/24 Loc: RAD Attending Dr: Shaikh Kristina Diane Ordering Physician: Shaikh Roxi Acevedo Date of Service: 01/11/24 Procedure(s): XR chest 2V Accession Number(s): [id number] cc: Shaikh Roxi Acevedo; Rachid Barillas M.D. [address] [place] [address] Patient Name: FUNMI JULIO MRN: [id number] date: 1955 Sex: M Assigned Patient Location: RAD Current Patient Location: RAD Accession/Order Number: [id number] Exam Date: 01/11/2024 11:38 Report Date: 01/11/2024 [...] Signed By: 01/11/24 1156 DD/ 1153 TD/TT: It Risk Analyst:TBHRadiology, Radiologist, MD - 01/31/2024 [place] [address] XRay Report Signed Patient: FUNMI JULIO MR#: [id number] : 1955 Acct:[id number] Age/Sex: 68 / M ADM Date: 01/11/24 Loc: RAD Attending Dr: Shaikh Kristina Diane Ordering Physician: Shaikh Roxi Acevedo Date of Service: 01/11/24 Procedure(s): XR chest 2V Accession Number(s): [id number] cc: Shaikh Roix Acevedo; Rachid Barillas M.D. The [address] [address] Patient Name: FUNMI JULIO MRN: [facility]:[id number] date: 1955 Sex: M Assigned Patient Location: RAD Current Patient Location: RAD Accession/Order Number: [id number] Exam Date: 01/11/2024 11:38 Report Date: 01/11/2024 [...] Signed By: 01/11/24 1156 DD/ 1153 TD/TT: It Risk Analyst: NOM HealthcareRadiology Study observation (narrative)Cox SouthXR CHEST 2V Ordered By: Radiologist Radiology on 45-13-8018PDVO [employer] Work Phone: XR CHEST 2Von 45-06-3896[place] [address] XRay Report Signed Patient: FUNMI JULIO MR#: [id number] : 1955 Acct:[id number] Age/Sex: 67 / M ADM Date: 11/16/23 Loc: LAB Attending Dr: Shaikh Kristina Diane Ordering Physician: Shaikh Roxi Acevedo Date of Service: 11/16/23 Procedure(s): XR chest 2V Accession Number(s): [id number] cc: Shaikh Roxi Acevedo; Rachid Barillas M.D. The [address] [address] Patient Name: FUNMI JULIO MRN: [id number] date: 1955 Sex: M Assigned Patient Location: LAB Current Patient Location: LAB Accession/Order Number: [id number] Exam Date: 11/16/2023 10:21 Report Date: 11/18/2023 [...] M.D. Signed By: 11/18/23158 DD/ 5 TD/TT: It Risk Analyst:TBHRadiology, Radiologist, MD - 11/18/2023 [place] [address] XRay Report Signed Patient: FUNMI JULIO MR#: [id number] : 1955 Acct:[id number] Age/Sex: 67 / M ADM Date: 11/16/23 Loc: LAB Attending Dr: Shaikh Kristina Diane Ordering Physician: Shaikh Roxi Acevedo Date of Service: 11/16/23 Procedure(s): XR chest 2V Accession Number(s): [id number] cc: Shaikh Roxi Acevedo; Rachid Barillas M.D. The [address] [address] Patient Name: FUNMI JULIO MRN: [id number] date: 1955 Sex: M Assigned Patient Location: LAB Current Patient Location: LAB Accession/Order Number: [id number] Exam Date: 11/16/2023 10:21 Report Date: 11/18/2023 [...] M.D. Signed By: 11/18/23158 DD/ 5 TD/TT: It Risk Analyst: [facility] HealthcareRadiology Study observation (narrative)Cox SouthXR CHEST 2V Ordered By: Radiologist Radiology on 22-56-0081UIDR [employer] Work Phone: cARDIAC STRESS TESTon 59-69-8235IMFEJGT STRESS TEST CARDIAC STRESS TEST [place] CARDIOLITE [...] interpreted and reported in a separate dictation. [facility] Signed and Approved by: DR PADDY STANFORD 02/01/2022 09:17:00[facility] STRESS/REST MULTIon 01-25-2022 NM STRESS/REST MULTIPatient: FUNMI JULIO Exam Date: 01/25/2022 : 1955 Gender:M Ordering : MARIANELA MCCULLOUGH Admission #: [id number] Family : Order #: [id number] CLICK HERE TO VIEW EXAM RADIOLOGY REPORT [...] by: Shazia Armstrong M.D. on 01/26/2022 at 11:49NormalThSelect Medical OhioHealth Rehabilitation Hospital - DublinBNPon 62-86-5028FT PRO BNP<11.1Normal<=900.0The [facility] Butler HospitalComment on above:Performed By: #### BNP, CMP, LIPID, CRP #### [facility] [address] [place] [address] Dr. Ramesh LassiterC AUTO DIFFon 98-92-0867XNOC #0.1 103/ulNormal0.0-0.1The [facility] Butler HospitalComment on above:Performed By: #### CBC #### [facility] [address] [place] [address] Dr. Ramesh MinBasophils/100 WBC (Bld)0.5 %Normal0.2-2.0The [facility] Comment on above:Performed By: #### CBC #### [facility] [address] [place] [address] Dr. Ramesh Ryan #0.2 103/ulNormal0.0-0.7The [facility] Butler HospitalComment on above: Performed By: #### CBC #### [facility] [address] [place] [address] Dr. Ramesh Villanuevaosinophils/100 WBC (Bld)2.0 %Normal0.9-7.0The [facility] Comment on above:Performed By: #### CBC #### [facility] [address] [place] [address] Dr. Ramesh Villanuevarythrocyte distribution width (RBC) [Ratio]13.1 %Woumuc74.0-15.0 The [facility] Butler HospitalComment on above:Performed By: #### CBC #### [facility] [address] [place] [address] Dr. Ramesh MinHematocrit (Bld) [Volume fraction]44.2 %Rmsvsp26.0-54.0The [facility] HospitalComment on above:Performed By: #### CBC #### [facility] [address] [place] [address] Dr. Ramesh MinHemoglobin (Bld) [Mass/Vol]14.8 g/tEIkoyyq96.0-18.0The [facility] HospitalComment on above:Performed By: #### CBC #### [facility] [address] [place] [address] [address] Ramesh Claudio #0.05 10e3/ulCritically high0.00-0.03The [facility] Comment on above:Performed By: #### CBC #### [facility] [address] [place] [address] [address] Ramesh Claudio %0.5 %Normal0.0-0.5The [facility] Butler HospitalComment on above: Performed By: #### CBC #### [facility] [address] [place] [address] Dr. Ramesh Burns #2.4 103/ulNormal1.2-3.8The [facility] HospitalComment on above:Performed By: #### CBC #### [facility] [address] [place] [address] Dr. Ramesh Montgomeryhocytes/100 WBC (Bld)25.0 %Pppnpn03.5-60.0[facility] Medical CenterComment on above:Performed By: #### CBC #### [facility] [address] [place] [address] [address] Ramesh EspinozaUAL DIFF REQNONormalThe [facility] Butler HospitalComment on above: Performed By: #### CBC #### [facility] [address] [place] [address] [address] Ramesh Bello (RBC) [Entitic mass]30.5 whOwqjds40.9-34.0The [facility] HospitalComment on above:Performed By: #### CBC #### [facility] [address] [place] [address] Dr. Ramesh Bello (RBC) [Mass/Vol]33.5 g/mQJderpz69.9-35.2The [facility] HospitalComment on above:Performed By: #### CBC #### [facility] [address] [place] [address] Dr. Ramesh Bello (RBC) [Entitic vol]91.1 bVAzopnd71.0-94.0[facility] Medical CenterComment on above:Performed By: #### CBC #### [facility] [address] [address] [address] Ramesh Mock #0.8 103/ulNormal0.3-0.8The [facility] Butler HospitalComment on above:Performed By: #### CBC #### [facility] [address] [place] [address] [address] Ramesh Godinezocytes/100 WBC (Bld)8.8 %Normal1.7-12.0The [facility] Comment on above:Performed By: #### CBC #### [facility] [address] [place] [address] Dr. Ramesh Atkins #6.1 103/ulNormal1.4-6.5The [facility] HospitalComment on above:Performed By: #### CBC #### [facility] [address] [place] [address] Dr. Ramesh Lopezutrophils/100 WBC (Bld)63.2 %Cjkjxs64.0-75.0The [facility] HospitalComment on above:Performed By: #### CBC #### [facility] [address] [place] [address] Dr. Ramesh Salazar mean volume (Bld) [Entitic vol]8.7 fLCritically low 9.5-13.5The [facility] HospitalComment on above:Performed By: #### CBC #### [facility] [address] [place] [address] Dr. Ramesh MinPLT330 103/lhIgifuz813-872Rox [facility] HospitalComment on above: Performed By: #### CBC #### [facility] [address] [place] [address] Dr. Ramesh MinRBC4.85 106/ulNormal4.70-6.10The [facility] Butler HospitalComment on above:Performed By: #### CBC #### [facility] [address] [place] [address] Dr. Ramesh MinWBC9.6 103/ulNormal4.0-11.0The Liberty HospitalComment on above: Performed By: #### CBC #### [facility] [address] [place], [place] [address] Dr. Ramesh Wilson 20-75-4240RPP4.7 mg/dLNormal<=1.0[facility] Comment on above:Performed By: #### BNP, CMP, LIPID, CRP #### [facility] [address] [place] [address] [address] Chandler ChangECHOCARDIO M/2D COMPLETEon 90-63-7162BTGKPEKGGG M/2D COMPLETE Patient: FUNMI JULIO Exam Date: 01/12/2022 : 1955 Gender:M Ordering : MARIANELA MCCULLOUGH Admission #: [id number] Family : Order #: [id number] CLICK HERE TO VIEW EXAM ECHOCARDIOGRAM REPORT [...] by: Ronda Gao M.D. on 01/13/2022 at 08:51[facility] CenterGLYCOHEMOGLOBIN A1Con 68-87-6847FRF RECOMMENDATIONADA THERAPEUTIC TARGET 6.0 - 7.0 ACTION SUGGESTED > 7.0[facility] CenterComment on above: Performed By: #### A1C #### [facility] [address] [place] [address] Dr. Ramesh MinGlucose [Mass/Vol]137 mg/dLFulton County Health CenterComment on above:Performed By: #### A1C #### [facility] [address] [place] [address] Dr. Ramesh MinHbA1c (Bld) [Mass fraction]6.4 %Critically high<=6.0The [facility] HospitalComment on above:Performed By: #### A1C #### [facility] [address] [place] [address] Dr. Ramesh MinLIPID PROFILEon 76-49-0128EMTX-HDL RATIO NORMSEE [facility] Crille HospitalComment on above:Result Comment: 3.3 - 4.4 LOW RISK 4.4 - 7.1 AVERAGE RISK 7.1 - 11.0 MODERATE RISK >11.0 HIGH RISKPerformed By: #### BNP, CMP, LIPID, CRP #### [facility] [address] [place] [address] Dr. Ramesh MinCholesterol [Mass/Vol]125 mg/dLNormal<=200[facility] Comment on above:Performed By: #### BNP, CMP, LIPID, CRP #### [facility] [address] [address] [address] Ramesh Mosleyesterol in HDL [Mass/Vol]39 mg/dLFulton County Health Center Comment on above:Performed By: #### BNP, CMP, LIPID, CRP #### [facility] [address] [address] [address] Ramesh MinCholesterol in LDL [Mass/Vol]69.2 mg/dLFulton County Health CenterComment on above:Performed By: #### BNP, CMP, LIPID, CRP #### [facility] [address] [place] [address] Dr. Ramesh Saldivar.total/Cholesterol in HDL [Mass ratio]3.2 {ratio} NormalThe [facility] HospitalComment on above:Performed By: #### BNP, CMP, LIPID, CRP #### [facility] [address] [address] [address] Ramesh Malhotra NORMAL> or = 60 mg/dl - LOW CARDIOVASCULAR RISK <40 mg/dl - HIGH CARDIOVASCULAR RISKFulton County Health CenterComment on above:Performed By: #### BNP, CMP, LIPID, CRP #### [facility] [address] [address] [address] Ramesh MinLDL CALC NORMALSEE BELOWFulton County Health CenterComment on above:Result Comment: <100 mg/dl OPTIMAL 100 - 129 mg/dl NEAR OR ABOVE OPTIMAL 130 - 159 mg/dl BORDERLINE HIGH 160 - 189 mg/dl HIGH >190 mg/dl VERY HIGH Performed By: #### BNP, CMP, LIPID, CRP #### [facility] [address] [address] [address] Ramesh MinTriglyceride [Mass/Vol]84 mg/dLNormal<=150[facility] Comment on above:Performed By: #### BNP, CMP, LIPID, CRP #### [facility] [address] [address] [address] Ramesh OlivaresLDL CALC16.8 mg/dLNormalThe [facility] HospitalComment on above: Performed By: #### BNP, CMP, LIPID, CRP #### [facility] [address] [address] [address] Ramesh Harper 14(COMP METB)on 75-55-1183Jyevlvf [Mass/Vol]3.7 g/dLNormal 3.5-5.0The [facility] HospitalComment on above:Performed By: #### BNP, CMP, LIPID, CRP #### [facility] [address] [address] [address] Ramesh MinAlbumin/Globulin [Mass ratio]0.9 {ratio}NormalThe [facility] HospitalComment on above:Performed By: #### BNP, CMP, LIPID, CRP #### [facility] [address] [address] [address] Rmaesh Murphy [Catalytic activity/Vol]75 U/ZAurwzy37-400Wbn [facility] HospitalComment on above:Performed By: #### BNP, CMP, LIPID, CRP #### [facility] [address] [address] [address] Ramesh Nicholas [Catalytic activity/Vol]33 U/NGeswhv71-30Oyx [facility] HospitalComment on above:Performed By: #### BNP, CMP, LIPID, CRP #### [facility] [address] [address] [address] Ramesh Calero gap [Moles/Vol]10.8 mmol/LNormalThe [facility] Comment on above:Performed By: #### BNP, CMP, LIPID, CRP #### [facility] [address] [address] [address] Ramesh MinAST [Catalytic activity/Vol]15 U/LCritically wxg93-74Btf [facility] HospitalComment on above:Performed By: #### BNP, CMP, LIPID, CRP #### [facility] [address] [address] [address] Ramesh MinBilirubin [Mass/Vol]0.3 mg/dLNormal0.2-1.3[facility] Comment on above:Performed By: #### BNP, CMP, LIPID, CRP #### [facility] [address] [place] [address] Dr. Ramesh MinCalcium [Mass/Vol]9.5 mg/dLNormal8.4-10.2[facility] Comment on above:Performed By: #### BNP, CMP, LIPID, CRP #### [facility] [address] [place] [address] Dr. Ramesh MinChloride [Moles/Vol]103 mmol/JFaznon78-186JzmCincinnati Children'S Hospital [facility] Center Comment on above:Performed By: #### BNP, CMP, LIPID, CRP #### [facility] [address] [place] [address] Dr. Ramesh MinCO2 [Moles/Vol]28.4 mmol/AJzaekt35.0-30.0[facility] Comment on above:Performed By: #### BNP, CMP, LIPID, CRP #### [facility] [address] [place] [address] Dr. Ramesh MinCreatinine [Mass/Vol]0.92 mg/dLNormal0.66-1.25ThSelect Medical [facility]Health Rehabilitation Hospital - DublinComment on above:Performed By: #### BNP, CMP, LIPID, CRP #### [facility] [address] [place] [address] Dr. Ramesh VillanuevaGFR-AF RUSSIAN>60Normal>=60The [facility] HospitalComment on above:Performed By: #### BNP, CMP, LIPID, CRP #### [facility] [address] [place] [address] Dr. Ramesh VillanuevaGFR-NON AF RUSSIAN>60Normal>=60The [facility] HospitalComment on above:Performed By: #### BNP, CMP, LIPID, CRP #### [facility] [address] [place] [address] Dr. Ramesh MinGlobulin (S) [Mass/Vol]4.1 g/dLNormalThe [facility] HospitalComment on above:Performed By: #### BNP, CMP, LIPID, CRP #### [facility] [address] [address] [address] Ramesh MinGlucose [Mass/Vol]104 mg/gSQkysrb33-325Gvm [facility] Comment on above:Performed By: #### BNP, CMP, LIPID, CRP #### [facility] [address] [address] [address] Ramesh MinPotassium [Moles/Vol]4.2 mmol/LNormal3.4-5.0The [facility] Comment on above:Performed By: #### BNP, CMP, LIPID, CRP #### [facility] [address] [address] [address] Ramesh MinProtein [Mass/Vol]7.8 g/dLNormal6.1-8.2The [facility] Comment on above:Performed By: #### BNP, CMP, LIPID, CRP #### [facility] [address] [address] [address] Ramesh MinSodium [Moles/Vol]138 mmol/NLvteup620-214Tpg [facility] Comment on above:Performed By: #### BNP, CMP, LIPID, CRP #### [facility] [address] [address] [address] Ramesh MinUrea nitrogen [Mass/Vol]18.0 mg/dLNormal9.0-20.0The [facility] HospitalComment on above:Performed By: #### BNP, CMP, LIPID, CRP #### [facility] [address] [address] [address] Ramesh Saleh nitrogen/Creatinine [Mass ratio]19.6 mg/mgNormalThe [facility] HospitalComment on above:Performed By: #### BNP, CMP, LIPID, CRP #### [facility] [address] [address] [address] Ramesh Ponce RATE WESTERGRENon 42-71-6307EAP RATE20 mm/hrNormal<=20The [facility] HospitalComment on above:Performed By: #### SEDR #### [facility] [address] [address] [address] Ramesh Min Vital Signs Date TimeVital SignValuePerforming PgrrrwkgbZdpjrwzj84-82-0268 09:04-0400Body fonjvf458.88 Helen Leticiahholz RACE ENGINE BUILDER-C Work Phone: [phone])[address]10-30-2025 09:04-0400 Body mass index (BMI) [Ratio]43.9 kg/m2Lisa Leticiahholz RACE ENGINE BUILDER-C Work Phone: [phone]10-30-2025 09:04-0400 Body jnskqkwadky69.8 [degF]Lela Leticiahholz RACE ENGINE BUILDER-C Work Phone: [phone]10-30-2025 09:04-0400 Body swzfow840.73 kgLisa Leticiahholz RACE ENGINE BUILDER-C Work Phone: [phone]10-30-2025 09:04-0400 Diastolic blood tbdhasdi55 mm[Hg]Lela Kellyhholz RACE ENGINE BUILDER-C Work Phone: [phone]10-30-2025 09:04-0400 Heart rate94 /minLisa Aichholz RACE ENGINE BUILDER-C Work Phone: [phone])[address]10-30-2025 09:04-0400 Respiratory rate20 /minLisa Aichholz RACE ENGINE BUILDER-C Work Phone: [phone] [place], [place] [address]10-30-2025 09:04-0400 SaO2% (BldA) [Mass fraction]92 %Lela Aichholz RACE ENGINE BUILDER-C Work Phone: [phone] [place], [place] [address]10-30-2025 09:04-0400 Systolic blood mm[Hg]Lela Leticiahholz RACE ENGINE BUILDER-C Work Phone: [phone] [place], [place] [address]10-08-2025 09:20-0400 Body uudtdr871.77 kgSam[facility]10-08-2025 09:20-0400 Diastolic blood zlfqynxn491 mm[Hg][facility]10-08-2025 09:20-0400Heart rate83 /[facility]10-08-2025 09:20-1804GoJ1% (BldA) [Mass fraction]92 %[facility] 09-03-2025 09:20-0400Systolic blood ysxgweto028 mm[Hg][facility]09-17-2025 09:45-0400Body rwkfuw798.88 cmSamaritan North Health Center09-17-2025 09:45-0400Body mass index (BMI) [Ratio]43.7 kg/h2NchtpycmhSamaritan North Health Center09-17-2025 09:45-0400Body ukzzwbkuoew64.5 [degF][facility]09-17-2025 09:45-0400Body nkufqp221.11 kgSamaritan North Health Center09-17-2025 09:45-0400Diastolic blood aglpzcuk98 mm[Hg] [facility]09-17-2025 09:45-0400Heart rate83 /[facility]09-17-2025 09:45-0400Respiratory rate24 /[facility]09-17-2025 09:45-7738WoY0% (BldA) [Mass fraction]94 % [facility]09-17-2025 09:45-0400Systolic blood arvsexsz259 mm[Hg][facility]07-30-2025 13:32-0400Body paxvdk237.88 cm [facility]07-30-2025 13:32-0400Body mass index (BMI) [Ratio]42.8 kg/h0WvoyppazvSamaritan North Health Center07-30-2025 13:32-0400Body xphhes756.33 kgSamaritan North Health Center07-30-2025 13:32-0400Diastolic blood cgayjqsm56 mm[Hg][facility]07-30-2025 13:32-0400 Heart rate77 /[facility]07-30-2025 13:32-1485PvS6% (BldA) [Mass fraction]91 %[facility]07-30-2025 13:32-0400 Systolic blood fubaadkr156 mm[Hg][facility]06-17-2025 09:59-0400Body mass index (BMI) [Ratio]43.29 kg/m2Lela Solorzano RACE ENGINE BUILDER Work Phone: [facility] SouthZjlhktuzkk68-07-3225 09:59-0400Body temperature 96.69 [degF]Lela Solorzano RACE ENGINE BUILDER Work Phone: [facility] SouthZutlzclvth31-02-2433 09:59-0400Body ineucz542.79 kgLela Solorzano RACE ENGINE BUILDER Work Phone: [phone] [place], [place] [address]Lqbnfcskbk91-61-4847 09:59-0400Diastolic blood viyrjqhz82 mm[Hg]Lela Solorzano RACE ENGINE BUILDER Work Phone: [phone] [place], [place] [address]Lxuytwldes34-87-3138 09:59-0400Heart rate51 /min Lela Solorzano RACE ENGINE BUILDER Work Phone: [phone]-[address] [place], [place] [address]Vqvpaddvkj17-52-6143 09:59-0400Respiratory rate20 /minLela Solorzano RACE ENGINE BUILDER Work Phone: [phone] [place], [place] [address]Xixvgcaeio98-52-5248 09:59-8419JhN9% (BldA) [Mass fraction]94 %Lela Solorzano RACE ENGINE BUILDER Work Phone: [facility] SouthYvoucawtcy70-82-6181 09:59-0400Systolic blood bsatpufi304 mm[Hg]Lela Solorzano RACE ENGINE BUILDER Work Phone: [phone] [place], [place] [address]Onjlifwfbk69-18-0483 11:36-0500Blood Pressure LocationKathy Lue [facility]01-22-2025 11:36-0500Body sdlaukbaqfo40.6 [degF]Tania Lue [facility]01-22-2025 11:36-0500Diastolic blood eyueckha99 mm[Hg]Tania Lue [facility]01-22-2025 11:36-0500Heart rate80 /minKathy Lue [facility]01-22-2025 11:36-0500Systolic blood lhmtibgg283 mm[Hg]Tania Mariscal [facility]12-12-2024 09:29-0500Body liruyc274.9 cmChioma Pardopatrick RACE ENGINE BUILDER Work Phone: [facility] SouthJgxuhvlwrd41-56-0384 09:29-0500Body mass index (BMI) [Ratio]42.59 kg/d9Hedinjbn Hardy RACE ENGINE BUILDER Work Phone: [facility] SouthXkajyrqjva22-31-3862 09:29-0500Body temperature 96.21 [degF]Chioma Servinzpatrick RACE ENGINE BUILDER Work Phone: [facility] SouthHtjrjrkttf12-29-9501 09:29-0500Body rpbfwa224.43 kgBrsukumar Pardopatrick RACE ENGINE BUILDER Work Phone: [facility] SouthTlvjdnnpbz51-87-8542 09:29-0500Diastolic blood aegjgafa32 mm[Hg]Chioma Hardy RACE ENGINE BUILDER Work Phone: [facility] SouthBjqyxpeifz93-64-9547 09:29-0500Heart rate65 /min Chioma Hardy RACE ENGINE BUILDER Work Phone: [facility] SouthFeesknhqcw64-71-7018 09:29-0500Respiratory rate16 /minBrsukumar ServinHardy RACE ENGINE BUILDER Work Phone: [facility] SouthWzmggwbqwv37-30-6472 09:29-3630XiJ0% (BldA) [Mass fraction]93 %Chioma Hardy RACE ENGINE BUILDER Work Phone: [facility] SouthLtjvqwxeju27-14-6185 09:29-0500Systolic blood wopamhtd559 mm[Hg]Chioma Hardy RACE ENGINE BUILDER Work Phone: [facility] SouthIdsgipfrhg47-72-2138 15:15-0400Body mass index (BMI) [Ratio]41.45 kg/b1Fhetzygqnxb Jazmine DO Work Phone: [facility] SouthAavacwnqny16-91-9917 15:15-0400Body jhavkh602.62 kgChristopher Jazmine DO Work Phone: [facility] SouthDlhkiwvtzz33-24-7747 15:15-0400Diastolic blood golqgpmm70 mm[Hg]Christopher Jazmine DO Work Phone: [facility] SouthIiykjzrrny01-92-9153 15:15-0400Heart rate78 /min Christopher Jazmine DO Work Phone: [facility] SouthQgcwgjaskn84-60-6709 15:15-0795TpT0% (BldA) [Mass fraction]94 %Christopher Jazmine DO Work Phone: [facility] SouthGmukktdoll06-81-6560 15:15-0400Systolic blood wuijnaod816 mm[Hg]Christopher Jazmine DO Work Phone: [facility] SouthIjlmkzqmci86-99-9946 10:40-0400Diastolic blood sqkpjeat04 mm[Hg]Tania Lue [facility]10-02-2024 10:40-0400Heart rate83 /minKathy Lue [facility]10-02-2024 10:40-0400Respiratory rate16 /minKathy Lue [facility]10-02-2024 10:40-0400Systolic blood kdfkyxdd378 mm[Hg]Tania Lue [facility]08-27-2024 10:31-0400Body wmuadb319.9 cmChioma Hardy RACE ENGINE BUILDER Work Phone: [facility] SouthPsklcgcxlv56-75-0910 10:31-0400Body mass index (BMI) [Ratio]42.18 kg/n5HujisqqlChioma Hardy RACE ENGINE BUILDER Work Phone: NOFulton [facility] Center- FultonBxqvrcirzb83-49-4570 10:31-0400Body temperature 97.81 [degF]Chioma Mcginnisk RACE ENGINE BUILDER Work Phone: [facility] SouthGjmgpdfmyj62-51-7188 10:31-0400Body lleyav805.07 kgChioma Hardy RACE ENGINE BUILDER Work Phone: [facility] SouthUmpiqsnvbr90-12-2381 10:31-0400Diastolic blood mm[Hg]Chioma Mcginnisk RACE ENGINE BUILDER Work Phone: [facility] SouthGkohicjqmq82-76-5832 10:31-0400Heart rate85 /min Chioma Mcginnisk RACE ENGINE BUILDER Work Phone: noGA HealthcareComment on above:96% P548-19-5982 10:31-0400Systolic blood mlhbsuld046 mm[Hg]Chioma Mcginnisk RACE ENGINE BUILDER Work Phone: [facility] SouthBfhfouaifp20-06-4912 15:18-0400Blood Pressure LocationMichael NILL [phone]-Loufr [facility] Surgery Cepcstbz30-34-7325 15:18-0400Diastolic blood mm[Hg]Funmi NILL 787-0637Wsxhdt-Ucupe General Surgery Nequwntw93-04-3656 15:18-0400Heart rate76 /minMichael NILL 691-2008Oxkeep-Zxxop General Surgery Ezgrtphv86-84-1833 15:18-0400Respiratory rate16 /minMichael NILL 012-8553Kwvhfh-Pfxti General Surgery Umrmtzsc65-71-8652 15:18-0400Systolic blood nuntrtcd744 mm[Hg]Funmi NILL 213-7509Ufuxkx-HpkmlW[facility] Encounters Encounter DateEncounter TypeCare ProviderFacilityStart: 09-25-2025 End: 48-21-0337eyhcwcfhkqBsgu J Aichholz RACE ENGINE BUILDER-C Work Phone: -[facility] ClydeStart: 09-25-2025 End: 92-07-5601Cjkwxrn encounter procedureLisa Jesu Solorzano RACE ENGINE BUILDER-C-[facility] Work Phone: Start: 09-24-2025 End: 85-05-8201ofyaokapfqGQQCKOWX FITZPATRICKFacility:FTMCStart: 09-24-2025 End: 23-62-5515Zbdgcas encounter procedureTania Mariscal [facility] start: 09-03-2025 End: 90-08-7472pnyllvzwoiMVPTrinity [facility] Work Phone: Start: 09-03-2025 End: 82-50-0410Fhkmrpo encounter procedureChrislaura Urias DO-[facility] Work Phone: Start: 08-13-2025 End: 88-67-4579izazjrzywwYYO [facility] Work Phone: Start: 08-13-2025 End: 44-89-2054Lqrxicp encounter procedureLisa Jesu Solorzano RACE ENGINE BUILDER-C-[facility] Work Phone: Start: 74-17-2511Dsxytjn encounter procedureBrecksville VA / Crille Hospitaltart: 06-25-2025 End: 60-98-1355vuaozlhkudGFSTrinity Health System [facility] Work Phone: Start: 06-25-2025 End: 59-75-5599Warukzk encounter procedurePerri Og DO-[facility] Work Phone: Start: 05-19-2025 End: 87-15-3862WkahamIbgd Aichholz RACE ENGINE BUILDER Work Phone: NOOR CWM FMComment on above:Hyperlipidemia, unspecifiedStart: 05-13-2025 End: 57-36-1133Jgiavr flowsheetLela Solorzano RACE ENGINE BUILDER Work Phone: noms CWM FMStart: 05-13-2025 End: 20-39-8115Fgytmm flowsheetLela Solorzano RACE ENGINE BUILDER Work Phone: noms CWM FMStart: 05-13-2025 End: 32-00-1613Belbijt encounter procedureLela Solorzano RACE ENGINE BUILDER Work Phone: noms HealthcareComment on above:Encounter for subsequent annual wellness visit (AWV) in Medicare patient (Primary Dx); Type 2 diabetes mellitus with other specified complication (HCC); Obstructive sleep apnea syndrome; Benign essential hypertension ; Coronary arteriosclerosis ; Morbid (severe) obesity due to excess calories ([facility]-HCC); Type 2 diabetes mellitus without complication, without long-term current use of insulin (HCC); Primary hypertension ; Hyperlipidemia, unspecified ; Suspected chronic obstructive pulmonary disease based on initial evaluation (HCC)Start: 05-13-2025 End: 72-97-1102oirltrxgpqXWWS LETICIAStewartLOVEZNot AvailableStart: 04-04-2025 End: 23-83-2123Zzcspwrwn Result EncounterGeneric External Data ProviderNOMS External Department UnsolicitedStart: 04-04-2025 End: 57-85-3655Fsgzqiiqn Result EncounterGeneric External Data ProviderNOMS External Department UnsolicitedStart: 04-02-2025 End: 18-99-7734Ongufolci Result EncounterGeneric External Data ProviderNOMS External Department UnsolicitedStart: 04-02-2025 End: 07-99-7143Lcfdguajq Result EncounterGeneric External Data ProviderNOMS External Department UnsolicitedStart: 03-19-2025 End: 01-82-3298cvlfnyvfjqMnhik M. LueFacility:RACHEL DeeueStart: 03-14-2025 End: 70-27-8011lryyeyfhaqBFPHAD MOBethesda North Hospital Start: 03-12-2025 End: 97-16-8143Eqzzbusng Result EncounterLela Pagealex RACE ENGINE BUILDER Work Phone: noms External Department UnsolicitedStart: 03-12-2025 End: 25-09-2100Ozbuhnmbi Result EncounterLisa Malirafael RACE ENGINE BUILDER Work Phone: noms External Department UnsolicitedStart: 03-12-2025 End: 43-87-2332Uny Drop offDaybraden UriasHumera Jeanrocío [facility] Start: 03-12-2025 End: 86-99-1733wanhxwvonfARYKSLIB FITZPATRICKFacility:FTMCStart: 02-10-2025 End: 88-34-0213ejucvfjgmhUSDL Reymundo AvailableStart: 12-18-2024 End: 10-77-5961uxwiuogpgqCqjob M. LueFacility:EU BellevueStart: 12-18-2024 End: 10-57-3734Zcxsfrk encounter procedureTania Mariscal [facility] start: 11-07-2024 End: 05-63-1346Bailbi flowsheetBrittany Hardy RACE ENGINE BUILDER Work Phone: noms CWM FMStart: 11-07-2024 End: 64-10-2114Wymowv flowsheetBrittany Hardy RACE ENGINE BUILDER Work Phone: noms CWM FMStart: 11-07-2024 End: 10-96-3777CefdsaRfabytxj Hardy RACE ENGINE BUILDER Work Phone: noms CWM FMComment on above:Type 2 diabetes mellitus without complication, without long-term current use of insulin ([facility])Start: 11-07-2024 End: 42-66-8765Zvbbty outpatient visit 15 minutesBrsukumar Pardopatrick RACE ENGINE BUILDER Work Phone: noms CWM FMComment on above:Type 2 diabetes mellitus without complication, without long-term current use of insulin ([facility]/HCC) (P rimary Dx); Mixed hyperlipidemia ([facility]/HCC); Primary hypertension ([facility]/HCC); BMI 40.0-44.9, adult ([facility]); Acute bronchitis with wheezing; Hyperlipidemia, unspecified ([facility]/HCC); Essential (primary) hypertension ([facility]/HCC); Major depressive disorder, recurrent, mild (HCC) ([facility]); Chronic GERD; Persistent depressive disorder ([facility]/HCC); Suspected chronic obstructive pulmonary disease based on initial evaluation ([facility])Start: 11-07-2024 End: 26-46-0967fpeqjsogboDTZXYFAZShubham Jacobs AvailableStart: 10-31-2024 End: 25-02-8253XnxenjGsvusxw LykinsNOMS [facility] FMComment on above:Essential (primary) hypertension ([facility])Start: 09-10-2024 End: 50-56-7509Amemannsc Result EncounterGeneric External Data ProviderNOMS External Department UnsolicitedStart: 09-10-2024 End: 79-26-3691Fzceiiese Result EncounterGeneric External Data ProviderNOMS External Department UnsolicitedStart: 09-04-2024 End: 53-35-8476Hheepu outpatient visit 25 minutesChristopher Jazmine DO Work Phone: noms [facility] STATE ROUTEComment on above:Cognitive impairment (Primary Dx)Start: 09-04-2024 End: 94-31-0002hmxceogefpIEUBMITGHRY HASSETTNot AvailableStart: 09-04-2024 End: 73-77-4146Iuodxy flowsheetChristopher Jazmine DO Work Phone: noms [facility] STATE R[facility]TEStart: 09-04-2024 End: 46-62-1507Siimwj flowsheetChristopher Jazmine DO Work Phone: noms [facility] STATE ROUTEStart: 09-03-2024 End: 13-02-4736Fmnywviku Result EncounterGeneric External Data ProviderNOMS External Department UnsolicitedStart: 09-03-2024 End: 41-54-1517Eaouryrft Result EncounterGeneric External Data ProviderNOMS External Department UnsolicitedStart: 08-28-2024 End: 89-91-9829danitqwrikMddoi M. LueFacility:EU WinfallevueStart: 08-28-2024 End: 87-41-5515Stkmzrz encounter Isi Mariscal [facility] start: 08-27-2024 End: 80-50-8976nfmklryhdiNLMYNXYF E PERRYFacility:EU evueStart: 08-27-2024 End: 96-09-3208Kknotur encounter procedureJENNIFER E DANUTA [facility] start: 08-21-2024 End: 07-19-1844KvgylzSfivnjpkLeann Hardy R[employer] ENGINE BU[employer]DER Work Phone: [facility] FMComment on above:Type 2 diabetes mellitus without complication, without long-term current use of insulin (CMS/HCC)Start: 08-15-2024 End: 20-91-3113Euqsnqy encounter Ben Terrell PhD Work Phone: noMS ST NEUROLOGYComment on above:Memory loss (Primary Dx); ZENON on CPAP; Depression, unspecified depression type (CMS/HCC); History of alcohol abuseStart: 08-15-2024 End: 66-35-9580kpokgmvpriERYO LETICIALOVEZNot AvailableStart: 07-30-2024 End: 09-79-8774Dfobpy Amador Terrell PhD Work Phone: [facility] ST NEUROLOGYStart: 07-30-2024 End: 47-35-4607Acmcba Amador Terrell PhD Work Phone: n[facility] ST NEUROLOGYStart: 07-30-2024 End: 74-83-9515Xboqcuf encounter Ben Terrell PhD Work Phone: noms ST NEUROLOGYComment on above:Mild cognitive impairment (Primary Dx); Memory loss; ZENON on CPAP; Depression, unspecified depression type (CMS/HCC); History of alcohol abuseStart: 07-30-2024 End: 44-10-1195fxafanvsqyZSSYIFWI DENBESTENNot AvailableStart: 07-24-2024 ambulatoryKathy LueFacility:EU SanduskyStart: 07-23-2024 End: 68-94-3465Widukx flowsheetChioma Mcginnisk RACE ENGINE BUILDER Work Phone: [facility] CWM FMStart: 07-23-2024 End: 47-26-7850Vikghg flowsheetBrsukumar Doshitrick RACE ENGINE BUILDER Work Phone: [facility] CWM FMStart: 07-23-2024 End: 35-54-3700Mafnlo outpatient visit 25 minutesBrsukumar Doshitrick RACE ENGINE BUILDER Work Phone: noms CWM FMComment on above:Type [...] pulmonary nodule; Acquired buried penisStart: 07-23-2024 End: 64-61-4538pynqzcjfimBGEPPCSY FITZNILESTRICKNot AvailableStart: 07-15-2024 End: 20-98-6974Aupykppgo Result EncounterChristopher Jazmine DO Work Phone: [facility]OMS External Department UnsolicitedStart: 07-15-2024 End: 93-65-3952Aslanpein Result EncounterChristopher Jazmine DO Work Phone: [facility]S External Department UnsolicitedStart: 07-08-2024 End: 87-91-2947tkqknhdjriTESBHVTJIFK HASSETTNot AvailableStart: 05-29-2024 End: 77-51-5932afvxcidfoyNnpdvfj Danielle VICTORLFacility:CD:[id number]: 05-23-2024 End: 08-88-2908icinauidgsOJQVPI FAWWADNot AvailableStart: 04-16-2024 End: 46-45-6061euimhqxhomKyblycq R NILLFacility:SELENA BellevueStart: 04-16-2024 End: 33-96-1475Arjlsfs encounter procedureMichael R NILL [phone]-Pmpzd General Surgery Amina Start: 03-06-2024 End: 83-80-6002Boozbgtbe Result EncounterSevan Acevedo MD Work Phone: noms External Department UnsolicitedStart: 03-06-2024 End: 76-35-1624Obwvvrcyo Result EncounterSevan Acevedo MD Work Phone: noms External Department UnsolicitedStart: 01-11-2024 End: 00-52-8916Fcoaalmjm Result EncounterSevan Acevedo MD Work Phone: noms External Department UnsolicitedStart: 01-11-2024 End: 91-91-6940Mhzrvjzwf Result EncounterSevan Acevedo MD Work Phone: noms External Department UnsolicitedStart: 11-18-2023 End: 40-95-8060Bzpkfvexj Result EncounterSevan Acevedo MD Work Phone: noms External Department UnsolicitedStart: 11-18-2023 End: 91-02-3676Nrcdqmfte Result EncounterSevan Acevedo MD Work Phone: noms External Department UnsolicitedStart: 07-03-2022 ambulatoryMELISSA BOESFacility:Y6Tpajs: 86-46-0366ghdfdrkntpCZXDWYT SADIA Facility:F9Gdagt: 01-25-2022 End: 87-52-0429pciaqclcsiLIPVPAD BOESFacility:U4Qvrto: 01-12-2022 End: 60-99-5016oxzpmeaxuwUHGIMIA BOESFacility:H1 Procedures DateProcedureProcedure DetailPerforming ClinicianStart: 80-94-4933Chupgldfou glycosylated p4bQyrssa Solorzano RACE ENGINE BUILDER Work Phone: Start: 05-25-9794TA ECHO DOPPLER COMPLETEGeneric External Data ProviderStart: 46-46-8318YE CHEST WO CONGeneric External Data ProviderStart: 93-78-0025VJN BASIC METABOLIC PANELGeneric External Data Provider Start: 25-59-3545MEU PRO BNPGeneric External Data ProviderStart: 19-53-9656KXN CBC WITH AUTO DIFFLisa Leticiastewartrafael RACE ENGINE BUILDER Work Phone: Start: 57-12-0036RMR LUTEINIZING HORMONEGeneric External Data ProviderStart: 29-25-2657BJF TESTOSTERONEGeneric External Data ProviderStart: 21-54-6890RRC ESTROGENGeneric External Data ProviderStart: 98-04-0092OKZ PROLACTINGeneric External Data ProviderStart: 85-46-8088KCY TESTOSTERONEGeneric External Data ProviderStart: 96-79-2568UKV HEAD/BRAIN WO/W CONTRChristopher Jazmnie DO Work Phone: Start: 80-19-8620RniucnuaxlvWeuryuep Hardy RACE ENGINE BUILDER Work Phone: Start: 38-37-4567OnzmktbonslUAZGJVVY DANUTA Start: 42-46-7979LX CHEST WO CONSevan Acevedo MD Work Phone: Start: 72-92-4527IJ CHEST 2Roselia Acevedo MD Work Phone: Start: 84-93-9585EH CHEST 2Roselia Acevedo MD Work Phone: Start: 64-61-2816PwlvfzpmjfoRpjdgeg NILL Cardiac catheterizationMichael NILL History of tonsillectomyHistory of tonsillectomyRepair of umbilical herniaMichael NILL Tonsillectomy and adenoidectomyMichael NILL Plan of Treatment DateCare ActivityDetailAuthorStart: 30-19-4381Kkwznsvet for malignant neoplasm of colonNOGA HealthcareStart: 57-37-6436Skwgtmbw screeningDiabetes: Retinopathy ScreeningNOMS HealthcareStart: 05-19-2026 End: 76-90-2407Eqpahir encounter evcoumksq90/23/2026 11:00 AM EDT Office Visit [facility] [address] [place] [address] Lela Solorzano NP [address] [place] [address] [facility] FMStart: 06-17-2026Medicare Annual Wellness (AWV) Medicare Annual Wellness (AWV)NOM HealthcareStart: 26-12-5307Mpltc screening for proteinDiabetes: Urine Protein ScreeningNOGA HealthcareStart: 02-10-2026 Pneumococcal Vaccine: 65+ Years (1 of 2 - PCV)Pneumococcal Vaccine: 65+ Years (1 of 2 - PCV)[facility] HealthcareComment on above:Postponed from 1976 (Patient Refused)Start: 44-55-9846Puukgbvnny A1c measurementDiabetes: Hemoglobin E6UTRYY HealthcareStart: 09-03-2025 End: 39-89-5123Dswyduw encounter procedureNOCHILDREN'S HOSPITAL FOR REHABILITATION ROUTEStart: 90-12-7287Bwxjoqveti A1c measurementDiabetes: Hemoglobin D9PXHMS Healthcare Start: 65-33-4487Epebkao referralAshtabula General Hospital Work Phone: Start: 08-13-2025 End: 25-17-3430Cgtsapz encounter nmbfryyjb38/17/2025 9:40 AM EDT Office Visit [facility] [address] [place] [address] Lela Solorzano NP [address] [place] [phone] [facility] FMStart: 99-48-7844TAPRN-19 Vaccine ( season)COVID-19 Vaccine ()NOM HealthcareStart: 07-28-2025 Influenza vaccinationNOGA HealthcareStart: 06-27-2025Medicare Annual Wellness (AWV)Medicare Annual Wellness (AWV)NOM HealthcareStart: 05-13-2025 End: 37-75-5719Xblidnu encounter procedureNOGRIFFIN [facility] FMComment on above:Encounter for subsequent annual wellness visit (AWV) in Medicare patient (Primary Dx); Type 2 diabetes mellitus with other specified complication (HCC); Obstructive sleep apnea syndrome; Benign essential hypertension ; Coronary arteriosclerosis ; Morbid (severe) obesity due to excess calories ([facility]); Type 2 diabetes mellitus without complication, without long-term current use of insulin ([facility])Start: 02-10-2025 End: 23-70-5306Ajjpwho encounter gwqdvgtto71/17/2025 9:30 AM EDT Office Visit [facility] [address] [place] [address] Chioma Hardy NP [address] [place] [address] [facility] FMStart: 02-46-1864Tycao screening for protein Diabetes: Urine Protein ScreeningNOGA HealthcareStart: 74-83-0492Xqowlwbyo vaccinationInfluenza Vaccine (#1)[facility] HealthcareComment on above:Postponed from 07/28/2024 (Patient Refused)Start: 11-07-2024 End: 66-98-3668Zusrhvn encounter procedureNOGRIFFIN MEMORIAL [facility] FMComment on above:Arrived Start: 10-23-2024 End: 96-27-5247Vcqtkqb encounter shkfscvia78/27/2024 9:30 AM EST Office Visit [facility] [address] [place] [phone] Chioma Hardy, RACE ENGINE BUILDER [address] [place] [address] [facility] CW FMStart: 09-04-2024 End: 32-56-3615Lqvawqs encounter procedureNOGA [facility] STATE ROUTEComment on above:ArrivedStart: 08-15-2024 End: 82-12-7438Prfvxmh encounter gwbxsmywm21/19/2024 9:00 AM EDT Office Visit [facility] [address] [address] [facility] NEUROLOGYStart: 84-63-6805Rycvnoxhsv A1c measurementDiabetes: Hemoglobin A1C [facility] HealthcareStart: 07-30-2024 End: 72-85-0111Ulhqxud encounter procedureNOGEORGIANA MEDICAL [facility]ENTER NEUROLOGYComment on above:Mild cognitive impairmentStart: 50-89-0519Yzpaebowt vaccinationInfluenza Vaccine (#1)[facility] HealthcareStart: 07-23-2024 End: 71-63-3447Twmvpto encounter cofagqrdm97/27/2024 10:30 AM EDT Office Visit [facility] FM [address] [place] [address] Chioma Hardy, DEX [address] [place] [address] ArrivedNOGRIFFIN MEMORIAL [facility] FMComment on above:ArrivedStart: 1962 DTaP/Tdap/Td Vaccines (1 - Tdap)DTaP/Tdap/Td Vaccines (1 - Tdap)[facility] Healthcare Start: 08-57-5471Gpeqtpzxpyri Vaccine: 65+ Years (1 of 2 - PCV)Pneumococcal Vaccine: 65+ Years (1 of 2 - PCV)[facility] HealthcareStart: 37-22-8007KUK Vaccines (1 of 1 - Standard series)MMR Vaccines (1 of 1 - Standard series)[facility] Healthcare Start: 10-09-9893Vjlctmedw for malignant neoplasm of colonNOMS HealthcareMR Lumbar spine WO contrastSamaritan North Health CenterPatient EducationLow back pain in adultsAshtabula General Hospital Work Phone: Patient [facility] Work Phone: XR Lumbar spine 2 or 3 [facility]XR [facility] - bilateral [facility] Immunizations Immunization DateImmunizationNotesCare BdzrexmaTakeidks83-54-5438zkrbpxxax virus vaccine, unspecified formulationMichael NILL [phone]-DxmaqWright-Patterson [facility]11-02-2023 Influenza, High-dose Seasonal, Quadrivalent, Preservative FreeBrittany Hardy RACE ENGINE BUILDER Work Phone: [facility] SouthJxefiigtno00-64-9351HRWY-JzD-3 (COVID-19) mRNA- 1273 vaccineMichael NILL [phone]-JcsuxWright-Patterson Medical Center10-17-2021 influenza virus vaccine, unspecified formulationKathy Lue [facility]10-17-2021influenza, injectable, quadrivalent, preservative freeBrittany Hardy RACE ENGINE BUILDER Work Phone: [facility] SouthPjguxihxdt05-11-4971ZYSY-TfH-2 (COVID-19) mRNA- 1273 vaccineMichael NILL [phone]-WiimmWright-Patterson Medical Center03-13-2021 SARS-CoV-2 (COVID-19) mRNA-1273 vaccineMichael NILL [phone]-UncuhWright-Patterson Medical Center10-01-2020 influenza virus vaccine, unspecified formulationBrittany Hardy RACE ENGINE BUILDER Work Phone: [facility] SouthPulwfzxttq36-74-8786kocjowwdl virus vaccine, unspecified formulationKathy Lue [facility]09-30-2020influenza, injectable, quadrivalent, preservative freeBrittany Hardy RACE ENGINE BUILDER Work Phone: [phone] [place], [place] [address]Eetxihdpso81-81-5822frltlygxr virus vaccine, unspecified formulationKathy Lue [facility]12-23-2019influenza, injectable, quadrivalent, contains preservative Chioma Hardy RACE ENGINE BUILDER Work Phone: [facility] SouthPfnqufdfpn77-06-7212kslvxb vaccine recombinant Chioma Hardy RACE ENGINE BUILDER Work Phone: [facility] SouthEmcfuddrkj21-61-5164fhqwpa vaccine recombinant Chioma Hardy RACE ENGINE BUILDER Work Phone: [facility] SouthJqofywvdxj43-23-1236plcfxc vaccine recombinant Chioma Hardy RACE ENGINE BUILDER Work Phone: [facility]09-18-2018influenza virus vaccine, unspecified formulationKathy Lue [facility]09-18-2018influenza, seasonal, injectableBrittany Hardy RACE ENGINE BUILDER Work Phone: [facility] SouthBvvphbmxyy57-72-2516kankzr vaccine recombinant Chioma Hardy RACE ENGINE BUILDER Work Phone: [facility]10-20-2017influenza virus vaccine, unspecified formulationKathy Lue [facility]10-20-2017influenza, seasonal, injectableBrittany Hardy RACE ENGINE BUILDER Work Phone: [facility] SouthYpldemernp37-19-4169louifatfx virus vaccine, unspecified formulationKathy Lue [facility]11-20-2015influenza, seasonal, injectableBrittany Hardy RACE ENGINE BUILDER Work Phone: [facility] SouthBhrrapvwin81-37-3470zhspzdstq virus vaccine, unspecified formulationKathy Lue [facility]09-09-2013influenza, seasonal, injectable, preservative freeBrittany Hardy RACE ENGINE BUILDER Work Phone: [facility] SouthSealruzufr48-40-9489hehjsugaj virus vaccine, unspecified formulationKathy Lue [facility]09-13-2012influenza, seasonal, injectable, preservative freeBrittany Hardy RACE ENGINE BUILDER Work Phone: [facility] SouthAqbditwvmz15-07-5740bxovpjmve virus vaccine, unspecified formulationKathy Lue [facility]cb[facility]tfz [facility]09-16-2011influenza, seasonal, injectable, preservative freeBrittany Hardy RACE ENGINE BUILDER Work Phone: [facility] SouthSoktmfmpak20-17-8519bemaebddp virus vaccine, unspecified formulationBrittany Hardy RACE ENGINE BUILDER Work Phone: [facility] Payers DatePayer CategoryPayerPolicy [id number] Health Insurance [id number] MEDICARE ADVANTAGE [id number] 2023MedicareAETNA MEDICARE ADVANTAGE AETNA MEDICARE REPLACEMENT [id number] 2022-Present [address] [place] [id number] Health [id number]sj Health [id number] 83-36-3761Mbxheyr Health SdhvpczuaYKZ467175750-39-6198Kyxm-vzc59-32-9044Qawgeju [id number] 2.16.840.1.371412.3.57[id number] 2.840.1.155147.3.579.[id number] 2.840.1.668983.3.579.2.15229-71-2113Ylieeea1980957 2.840.1.098325.3.579.2.56513-16-9167Xrjlewt69741889 2.840.1.486054.3.57[id number] 2.840.1.193251.3.579.2.75096-48-1432Lzlfmcc18902333 2.840.1.596110.3.579.2.33843-04-2718Uuwzeoy83045976 2.840.1.798591.3.579.[id number] 2.16840.1.664741.3.579.[id number] 2.16840.1.525532.3.579.2.77784-70-7032Ilwuqxe65607922 2.16840.1.852996.3.579.2.77255-71-4138Aefztty53797571 2.16.840.1.390246.3.579.2.35951-20-6709Tehgqiv63043501 2.16.840.1.342584.3.579.2.304190-95-7440Iginrog1525963 2.16.840.1.687906.3.579.2.460622-92-9081Eaxgfyc5916151 2.16.840.1.011586.3.579.2.084716-65-2086Xfqzxbu8619446 2.16.840.1.742667.3.579.2.593559-70-0175Vrjpzwu8592354 2.16.840.1.582749.3.579.2.495580-55-9203Sfhgkqy1622071 2..840.1.250703.3.579.2.497940-95-9108Gfofztq1977226 2.16.840.1.700300.3.579.2.534744-76-9183Rxtrfdz6866688 2.16.840.1.194201.3.579.2.581306-47-0246Hliezzv1744110 2.16.840.1.205945.3.579.2.710565-33-6718Wmirtst15559479 2..840.1.305696.3.579.2.36218-64-1605Thqudkb49866286 2..840.1.583147.3.579.2.727 Social History DateTypeDetailFacilityStart: 04-16-2024 End: 90-09-7467Jmfrauq smoking statusEx-smoker (finding)[facility]vueStart: 48-47-0840Odlzrmi smoking statusSmokeless tobacco user within last 30 daysAcmc Healthcare System [facility] BellevueStart: 07-16-2024 End: 95-12-8766Hvn Assigned At BirthMalFisher-Titus Medical CenterHistory of tobacco useCurrent smokerNOMS HealthcareHistory of tobacco useCigarette Smoker N[facility] HealthcareStart: 07-08-2024 End: 61-55-8609Cjhnqwrond smoked current (pack per day) - Reported0.5NOMS HealthcareHistory of tobacco usePassive smokerNOMS HealthcareStart: 11-16-2023 End: 93-37-7476Zdehgks use and exposureUser of smokeless tobaccoNOMS Healthcare History of tobacco useChews TobaccoNOMS HealthcareStart: 07-08-2024 End: 88-52-3851Cfdoipozs beverage intakeLifetime non-drinker (finding)NOMS HealthcareDo you belong to any clubs or organizations such as cheondoism groups, unions, fraternal or athletic groups, or [...] from your doctor or pharmacy [SILS]NeverNOMS HealthcareSexual OrientationDunlap Memorial Hospital Start: 38-23-5371CpyMwei (finding)[facility]lap Memorial HospitalTobacco smoking status NHISUnknown if ever smokedAshtabula General Hospital Work Phone: Start: 24-06-9024Juh Assigned At [facility] Hospitaltart: 94-39-1718Ezprujr smoking status NHISNever smoked tobaccoOREM COMMUNITY [facility]PITAL Healthcare Goals DatePatient GoalDesired Activity/StatePersonal health goal Functional Status PpriMhprzrnumlLaqjrkJhippple96-55-5351Wnoooaf Health Questionnaire 2 item (PHQ- 2) [Reported][facility] SouthZeljqgzqcg29-36-3253Vupyblqkex StatusN/AExec[facility]10-02-2024Functional StatusN/AExec[facility]08-27-2024Patient Health Questionnaire 2 item (PHQ-2) [Reported][facility] SouthBuufpxwyxb47-34-6164Mjbow score [AUDIT-C]8 07/16/2024 5:31 PM EDT Mychart, GenericCox SouthSnohntiyin29-82-7748Aie often do you have a drink containing alcohol?4 or more times a week 07/16/2024 5:31 PM EDT Mychart, Generic 4 or more times a weekCox SouthGgldipcwge42-09-9454Nnu many standard drinks containing alcohol do you have on a typical day?3 or 4 07/16/2024 5:31 PM EDT Mychart, Generic 3 or 4Cox SouthKbfdpngtge43-22-4611Nvn often do you have 6 or more drinks on 1 occasion?Weekly 07/16/2024 5:31 PM EDT Mychart, Generic WeeklyCox SouthOgvvckqmkx57-09-2411Zvt difficult have these problems made it for you to do your work, take care of things at home, or get along with other people?Not difficult at all 05/23/2024 10:29 AM WILLT Shaikh Acevedo MD Not difficult at allCox SouthBuuoyrjdnm92-64-1728Kidwtkz Health Questionnaire 2 item (PHQ-2) [Reported][facility] SouthKlkmwwkjzn69-38-2198Vnpvbcnxvn StatusN/AFKettering Health Washington Township [facility] Surgery Ttwaemgc20-91-7099Wdrbvuk Health Questionnaire 2 item (PHQ-2) [Reported][facility] Clinical Notes 04-16-2024 to 08-13-2025 Note Date & EwkxWgbcHdmzzbis81-78-7632 Evaluation note* Diagnosis Onset Date Resolution Status Admit Date CAD in [place] artery acuteSeptember 2024 9:29amChronic lower back painacuteSeptember 2024 9:29amEssential hypertensionacuteSeptember 2024 9:29amGERD without esophagitisacuteSeptember 2024 9:29amMorbid obesity due to excess calories acuteSeptember 2024 9:29amOSA (obstructive sleep apnea)acuteSeptember 2024 9:29amType 2 diabetes mellitus without complication, without long- term current usacuteSeptember 2024 9:29amCognitive impairmentacuteOctober 2024 9:13amCAD in [place] arteryacuteOctober 2024 8:56amChronic lower back painacuteOctober 2024 8:56amEssential hypertensionacuteOctober 2024 8:56amMorbid obesity due to excess caloriesacuteOctober 2024 8:56am ZENON (obstructive sleep apnea)acuteOctober 2024 8:56amType 2 diabetes mellitus without complication, without long-term current usacuteOctober 2024 8:56am [facility] Work Phone: 1(884) 441-451207-30-2025 Evaluation note* Diagnosis Onset Date Resolution Status Admit Date Hypersomnia deletedJuly 2024 1:16pmObesitydeletedJuly 2024 1:16pmOSA (obstructive sleep apnea)deletedJuly 2024 1:16pmSnoringdeletedJuly 2024 1:16pmCAD in [place] arteryacuteSeptember 2024 9:29amChronic lower back painacuteSeptember 2024 9:29amEssential hypertensionacuteSeptember 2024 9:29amGERD without esophagitisacuteSeptember 2024 9:29amMorbid obesity due to excess caloriesacuteSeptember 2024 9:29amOSA (obstructive sleep apnea)acuteSeptember 2024 9:29amType 2 diabetes mellitus without complication, without long-term current usacuteSeptember 2024 9:29am [facility] Work Phone: 1(290) 739-677607-30-2025 Evaluation note* Diagnosis Onset Date Resolution Status Admit Date Hypersomnia deletedJuly 2024 1:16pmObesitydeletedJuly 2024 1:16pmOSA (obstructive sleep apnea)deletedJuly 2024 1:16pmSnoringdeletedJuly 2024 1:16pmCAD in [place] arteryacuteSeptember 2024 9:29amChronic lower back painacuteSeptember 2024 9:29amEssential hypertensionacuteSeptember 2024 9:29amGERD without esophagitisacuteSeptember 2024 9:29amMorbid obesity due to excess caloriesacuteSeptember 2024 9:29amOSA (obstructive sleep apnea)acuteSeptember 2024 9:29amType 2 diabetes mellitus without complication, without long-term current usacuteSeptember 2024 9:29am Cognitive impairmentacuteOctober 2024 9:13am [facility] Work Phone: 1(904) 992-509506-17-2025 History of Present illness Narrative* JEREMIAH ABRAMS [...] Hospitalizations in the last year: no Specialist: Internal Medicine Veterinary Technician, Urologist, Neurologist for ZENON HCPOA/Living Will: no [...] statin, imdur, demarco/hydrochlorothiazide, b denice, asa Cardiology: [facility] Type 2 diabetes mellitus without complication, [...] Morbid (severe) obesity due to excess calories ([facility]) Discussed with patient their BMI (actual, [...] that supplies your machine and tubing/filters etc: [facility] Doctor that manages your ZENON: Dr Og [...] Morbid (severe) obesity due to excess calories ([facility]) Discussed with patient their BMI (actual, [...] statin, imdur, demarco/hydrochlorothiazide, b denice, asa Cardiology: [facility] * Lela Solorzano NP - 05/13/2025 [...] your ZENON: Dr Og documented in this encounterCox SouthQkymnyorjz79-78-1837 Instructions* Patient Instructions* Lela Solorzano NP - 05/13/2025 10:[address] Og's office for an appointment: [phone] documented in this encounterCox SouthXyyumowhmc66-68-9493 NotePatient Education Urology Hypogonadism, Male Male hypogonadism [...] Follow these instructions at home: ??? Take lymv-xzo-dekdcpn and prescription medicines only as told by [...] sure you discuss any (more content not included)...[facility]04-18-2025 NoteUT Cardiology - [facility] Subjective Funmi Julio is a 69 y.o. year old male patient being seen for 1 year follow up. Patinet denies chest pain, or leg swelling . Patient complains of SOB, dyspnea with exertion, lower back pain. Patient had recent labs at [facility] on 03/12/2025 Patient Active Problem List Diagnosis Acute sinusitis Anemia Benign essential hypertension Coronary arteriosclerosis Cough Depressive disorder Hyperlipidemia Hypertensive disorder Impaired fasting glucose Neck sprain Pain in joint involving ankle and foot Precordial pain Solitary pulmonary nodule Chronic GERD Constipation Dyslipidemia Obesity (BMI 30-39.9) Rectal bleeding Sleep apnea Type 2 diabetes mellitus without complication, without long-term current use of insulin ([facility]) Acquired buried penis Calcified lymph nodes [...] followed by his primary care physician and supplier engineer. Today he reports that he has been [...] in the morning., Di (more content not included)...[facility]01-22-2025 Hospital Discharge instructions Patient Education 12/18/2024 [...] therapy. Follow these instructions at home: Take mcqu-zwi-spprbul and prescription medicines only as told by [...] provider. Document Revised: 07/15/2021 Document Reviewed: 07/15/2021 [employer] Patient Education 2023 [employer]. Follow Up Care 08/28/2024 11:12:51 With:Davey PARISH, ODALYS Arrieta, URO Address: When:Within 3 Month(s) Comments:[facility] 01-22-2025 NotePatient Education Urology Hypogonadism, Male Male [...] Follow these instructions at home: ??? Take teye-vpt-exqkpmx and prescription medicines only as told by [...] sure you discuss any (more content not included)...[facility]12-12-2024 History of Present illness Narrative* Chioma Hardy NP - 11/07/2024 9:48 AM ESTAssociated Problem(s): BMI 40.0-44.9, adult ([facility]) Discussed with patient their BMI (actual, verses [...] 11/07/2024 9:47 AM ESTAssociated Problem(s): HTN (hypertension) ([facility]) Currently taking amlodipine 10mg Isosorbide Lisinopril-hydrochlorothiazide Metoprolol Does not check BP at home; Denies orthostatic changes, dizziness, cough, shortness of breath, swelling in extremities. Continue current regimen. Given BP log, advised pt to record BP and bring log back with them to next visit. * Chioma Hardy NP - 11/07/2024 9:47 AM ESTAssociated Problem(s): Hyperlipidemia ([facility]) Currently taking Atorvastatin 40mg Denies any myalgias. Continue current regimen. * Chioma Hardy NP - 11/07/2024 9:47 AM ESTAssociated Problem(s): Type 2 diabetes mellitus without complication, without long-term current useof insulin ([facility]) Currently taking Metformin Semaglutide Has been tolerating [...] R ALBUMIN GLOBULIN RATIO 0.8 Resulting Agency [facility] DMII: Currently taking Metformin Semaglutide Has [...] omeprazole (PriLOSEC) [address] capsule Hyperlipidemia ([facility] Currently taking Atorvastatin 40mg Denies any myalgias. Continue current regimen. Persistent depressive disorder ([facility]) (Chronic) Relevant Medications PARoxetine (Paxil) 40 MG tablet Type 2 diabetes mellitus without complication, without long-term current use of insulin ([facility]) -Primary (Chronic) Currently taking Metformin Semaglutide Has [...] metFORMIN (Glucophage) 850 MG tablet HTN (hypertension) ([facility]) Currently taking amlodipine 10mg Isosorbide Lisinopril-hydrochlorothiazide Metoprolol [...] obstructive pulmonary disease based on initial evaluation ([facility]) Relevant Medications albuterol HFA (Ventolin HFA) 90 mcg/act inhaler fexofenadine (Lamar Allergy) 180 MG tablet BMI 40.0-44.9, adult ([facility]) Discussed with patient their BMI (actual, verses [...] recurrent, mild (HCC) (CMS/HCC) documented in this [facility]12-05-2024 Telephone encounter Note* Telephone Encounter - Krystal Dickson - 10/31/2024 11:28 AM EST Patient states he did not know that you lowered his meds to 1 time a day instead of 2 and he's running out of lisinopril now [id number] Miscellaneous Notes* Telephone Encounter - Krystal Dickson - 10/31/2024 11:28 AM EST Patient states he did not know that you lowered his meds to 1 time a day instead of 2 and he's running out of lisinopril now documented in this [facility]10-09-2024 History of Present illness Narrative* Tania Lucero [...] reflexes are 2+ and symmetric throughout. Coordination: Pcrgtn-ax-pvgj testing and rapid alternating movements are normal [...] oxygenation status.He has seen pulmonology for this. [place] cognitive assessment was 26/30. MRI of the [...] plan, and return instructions documented in this encounterCox [id number] Hospital Discharge instructions Patient Education 08/28/2024 11:12:34 [...] Follow these instructions at home: Medicines Take tvjh-yjd-kbuoghn and prescription medicines only as told by [...] provider. Document Revised: 02/09/2022 Document Reviewed: 02/09/2022 [employer] Patient Education 2023 [employer]. Follow Up Care 08/27/2024 13:33:54 With:Davey PARISH, Tania Angel, URL, URO Address: [address] [place] [address]- [phone] When: Unknown Comments:6 mos (possible T level) [facility] 10-02-2024 NotePatient Education Urology Erectile Dysfunction Erectile [...] these instructions at home: Medicines ? Take dpqb-vop-qrgmivr and prescription medicines only as told by [...] nicotine or tobacco. These (more content not included)...[facility]09-19-2024 History of Present illness Narrative* Deshawn [...] has helped curb his cravings. Reformed smoker. Platinum language Faroese. Completed an associate's degree in automotive work. 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 Also has long history of chemical exposure [...] design >16th %ile. Motor/Speed of Processing: Right-handed. Recycling Manager strength 16th %ile with right- hand, 21st [...] Immediate recall for a variety of geometric chbyiau90gy %ile, delayed 82nd %ile. Recognition 51-75th %ile. [...] of this individual. Please contact me with [facility] at [phone]. documented in this encounterCox [id number] History of Present illness Narrative* Deshawn Terrell, [...] has helped curb his cravings. Reformed smoker. Platinum language Faroese. Completed an Associates degree in automotive work. 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 Please contact me with [facility] at [phone]. documented in this encounterCox [id number] History of Present illness Narrative* Chioma Hardy [...] and was referred to additional specialisat @ [facility] Neurology- Appointment on 07/30/2024; MRI completed on 07/15/2024. * Chioma Hardy NP - 07/23/2024 12:17 PM EDTAssociated Problem(s): Suspected chronic obstructive pulmonary disease based on initial evaluation ( [facility]) Follows Dr. Morrison with Pulmonology Feels symptoms [...] without complication, without long-term current useof insulin ([facility]) Most recent labs: hemoglobin A1C 6.3% Down [...] R ALBUMIN GLOBULIN RATIO 0.8 Resulting Agency [facility] TB TB TB DMII: Most recent labs: hemoglobin A1C 6.3% Down from 6.5%. 0 Result Notes Component Ref Range & Units 8 d ago 5 mo ago GLYCOHEMOGLOBIN A1C 4.5 - 6.2 % 6.3 High 6.5 High CM Comment: ADA RECOMMENDED LIMIT 4.0 - 6.0 ADA THERAPEUTIC TARGET < 7.0 ACTION SUGGESTED > 7.0 ESTIMATED AVERAGE GLUCOSE mg/dL 134 140 Resulting Agency [facility] Average FSBS range from patient does not [...] at next OV. Continue with Prilosec. Hyperlipidemia ([facility]) Atorvastatin 40mg Denies myalgias Continue Lipitor Solitary pulmonary nodule Follows Pulmonology- Dr. Morrison Type 2 diabetes mellitus without complication, without long-term current use of insulin ([facility]) -Primary (Chronic) Most recent labs: hemoglobin A1C [...] obstructive pulmonary disease based on initial evaluation ([facility]) Follows Dr. Morrison with Pulmonology Feels symptoms [...] HFA) 90 mcg/act inhaler documented in this encounterCox [id number] Instructions* Patient Instructions* Chioma Hardy NP - [...] carbohydrates, and simple sugars. documented in this encounterCox [id number] NoteChief Complaint consultation for colonoscopy HPI Staff [...] and Brother. Primary oscar (more content not included)...[facility]Result Comment: Electronically Signed By: MARTÍN PARISH, Funmi Suazo\Date and Time Signed: 04/16/24 16:19 EDTEvaluation + Plan note No data available for this section [facility] Evaluation + Plan note Future Appointments Appointment Date:08/28/2024 10:15:00 AM Scheduled Provider:Tania Mariscal MD Location:[facility] Appointment Type:URO New Patient [facility] evaluation + Plan note Future Appointments Appointment Date:03/05/2025 09:45:00 AM Scheduled Provider:Tania Mariscal MD Location:[facility] Appointment Type:URO Office Visit Diagnostic Tests Pending * Testosterone Level Total 08/28/24 [facility] evaluation + Plan note Future Appointments Appointment Date:03/12/2025 08:30:00 AM Scheduled Provider: Location:[facility] Appointment Type:URO Nurse Visit Appointment Date:03/19/2025 10:00:00 AM Scheduled Provider:Tania Mariscal MD Location:[facility] Appointment Type:URO Office Visit Future Scheduled Tests Laboratory* PSA Total 03/18/25 * Hematocrit 03/18/25 * Testosterone Level Total 03/18/25 [facility] evaluation + Plan note Future Appointments Appointment Date:03/19/2025 10:00:00 AM Scheduled Provider:Tania Mariscal MD Location:[facility] Appointment Type:URO Office Visit Diagnostic Tests Pending * Testosterone Level Total 03/12/25 Future Scheduled Tests Laboratory* Hematocrit 03/18/25 [facility] Evaluation note* Diagnosis Cognitive impairment- Primary Unspecified persistent mental disorders due to conditions classified elsewhere [facility] encounter [facility]* Diagnosis Solitary pulmonary nodule- Primary Benign essential hypertension ([facility]) Essential hypertension, benign Chronic GERD Type 2 diabetes mellitus without complication, without long-term current use of insulin ([facility]) Persistent depressive disorder ([facility]) Hyperlipidemia, unspecified hyperlipidemia type ([facility]) Morbid (severe) obesity due to excess calories (E66.01) Primary hypertension ([facility]) Unspecified essential hypertension Coronary arteriosclerosis ([facility]) Coronary atherosclerosis of unspecified type of vessel, kluti kaah or graft Obstructive sleep apnea syndrome Obstructive sleep apnea (adult) (pediatric) Suspected chronic obstructive pulmonary disease based on initial evaluation ([facility]) Skin mole Solitary pulmonary nodule- Primary Obstructive sleep apnea syndrome Obstructive sleep apnea (adult) (pediatric) Primary hypertension ([facility]) Unspecified essential hypertension Type 2 diabetes mellitus without complication, without long-term current use of insulin ([facility]) Hyperlipidemia, unspecified hyperlipidemia type ([facility]) Type 2 diabetes mellitus without complication, without long-term current use of insulin ([facility])- Primary Mild cognitive impairment Mild cognitive impairment, so stated Primary hypertension ([facility]) Unspecified essential hypertension Solitary pulmonary nodule Dyslipidemia (CMS/HCC) Other and unspecified hyperlipidemia Coronary arteriosclerosis (CMS/HCC) Coronary atherosclerosis of unspecified type of vessel, kluti kaah or graft BMI 40.0-44.9, adult ([facility]) Type 2 diabetes mellitus without complication, without long-term current use of insulin ([facility])- Primary Benign essential hypertension (CMS/HCC) Essential hypertension, benign Chronic GERD Suspected chronic obstructive pulmonary disease based on initial evaluation ([facility]) Mild cognitive impairment Mild cognitive impairment, so stated Acute bronchitis with wheezing Mixed hyperlipidemia ([facility]) Mixed hyperlipidemia Cerumen debris on tympanic membrane of both ears Solitary pulmonary nodule Acquired buried penis Essential (primary) hypertension ([facility]) Unspecified essential hypertension documented in this encounter [facility] HealthcareEvaluation note* Diagnosis Solitary pulmonary nodule- Primary Benign essential hypertension (CMS/HCC) Essential hypertension, benign Chronic GERD Type 2 diabetes mellitus without complication, without long-term current use of insulin ([facility]) Persistent depressive disorder ([facility]) Hyperlipidemia, unspecified hyperlipidemia type ([facility]) Morbid (severe) obesity due to excess calories (E66.01) Primary hypertension (CMS/HCC) Unspecified essential hypertension Coronary arteriosclerosis ([facility]) Coronary atherosclerosis of unspecified type of vessel, kluti kaah or graft Obstructive sleep apnea syndrome Obstructive sleep apnea (adult) (pediatric) Suspected chronic obstructive pulmonary disease based on initial evaluation ([facility]) Skin mole Solitary pulmonary nodule- Primary Obstructive sleep apnea syndrome Obstructive sleep apnea (adult) (pediatric) Primary hypertension (CMS/HCC) Unspecified essential hypertension Type 2 diabetes mellitus without complication, without long-term current use of insulin ([facility]) Hyperlipidemia, unspecified hyperlipidemia type ([facility]) Type 2 diabetes mellitus without complication, without long-term current use of insulin ([facility])- Primary Mild cognitive impairment Mild cognitive impairment, so stated Primary hypertension ([facility]) Unspecified essential hypertension Solitary pulmonary nodule Dyslipidemia (CMS/HCC) Other and unspecified hyperlipidemia Coronary arteriosclerosis (CMS/HCC) Coronary atherosclerosis of unspecified type of vessel, kluti kaah or graft BMI 40.0-44.9, adult ([facility]) Type 2 diabetes mellitus without complication, without long-term current use of insulin ([facility])- Primary Benign essential hypertension (CMS/HCC) Essential hypertension, benign Chronic GERD Suspected chronic obstructive pulmonary disease based on initial evaluation ([facility]/H[facility]) Mild cognitive impairment Mild cognitive impairment, so stated Acute bronchitis with wheezing Mixed hyperlipidemia (CMS/HCC) Mixed hyperlipidemia Cerumen debris on tympanic membrane of both ears Solitary pulmonary nodule Acquired buried penis Type 2 diabetes mellitus without complication, without long-term current use of insulin ([facility])- Primary Mixed hyperlipidemia (CMS/HCC) Mixed hyperlipidemia Primary hypertension (CMS/HCC) Unspecified essential hypertension BMI 40.0-44.9, adult ([facility]) Acute bronchitis with wheezing Hyperlipidemia, unspecified (CMS/HCC) Essential (primary) hypertension (CMS/HCC) Unspecified essential hypertension Major depressive disorder, recurrent, mild (HCC) ([facility]) Major depressive disorder, recurrent episode, mild Chronic GERD Persistent depressive disorder ([facility]) Suspected chronic obstructive pulmonary disease based on initial evaluation ([facility]) documented in this encounter [facility] HealthcareEvaluation note* Diagnosis Solitary pulmonary nodule- Primary Benign essential hypertension (CMS/HCC) Essential hypertension, benign Chronic GERD Type 2 diabetes mellitus without complication, without long-term current use of insulin ([facility]) Persistent depressive disorder ([facility]) Hyperlipidemia, unspecified hyperlipidemia type ([facility]) Morbid (severe) obesity due to excess calories (E66.01) Primary hypertension (CMS/HCC) Unspecified essential hypertension Coronary arteriosclerosis (CMS/HCC) Coronary atherosclerosis of unspecified type of vessel, kluti kaah or graft Obstructive sleep apnea syndrome Obstructive sleep apnea (adult) (pediatric) Suspected chronic obstructive pulmonary disease based on initial evaluation ([facility]) Skin mole Solitary pulmonary nodule- Primary Obstructive sleep apnea syndrome Obstructive sleep apnea (adult) (pediatric) Primary hypertension (CMS/HCC) Unspecified essential hypertension Type 2 diabetes mellitus without complication, without long-term current use of insulin ([facility]) Hyperlipidemia, unspecified hyperlipidemia type (CMS/HCC) Type 2 diabetes mellitus without complication, without long-term current use of insulin (CMS/HCC)- Primary Mild cognitive impairment Mild cognitive impairment, so stated Primary hypertension (CMS/HCC) Unspecified essential hypertension Solitary pulmonary nodule Dyslipidemia (CMS/HCC) Other and unspecified hyperlipidemia Coronary arteriosclerosis (CMS/HCC) Coronary atherosclerosis of unspecified type of vessel, kluti kaah or graft BMI 40.0-44.9, adult ([facility]) Type 2 diabetes mellitus without complication, without long-term current use of insulin ([facility])- Primary Benign essential hypertension (CMS/HCC) Essential hypertension, benign Chronic GERD Suspected chronic obstructive pulmonary disease based on initial evaluation ([facility]) Mild cognitive impairment Mild cognitive impairment, so stated Acute bronchitis with wheezing Mixed hyperlipidemia ([facility]) Mixed hyperlipidemia Cerumen debris on tympanic membrane of both ears Solitary pulmonary nodule Acquired buried penis Type 2 diabetes mellitus without complication, without long-term current use of insulin ([facility])- Primary Mixed hyperlipidemia ([facility]) Mixed hyperlipidemia Primary hypertension ([facility]) Unspecified essential hypertension BMI 40.0-44.9, adult ([facility]) Acute bronchitis with wheezing Hyperlipidemia, unspecified ([facility]) Essential (primary) hypertension ([facility]) Unspecified essential hypertension Major depressive disorder, recurrent, mild (HCC) ([facility]) Major depressive disorder, recurrent episode, mild Chronic GERD Persistent depressive disorder ([facility]) Suspected chronic obstructive pulmonary disease based on initial evaluation ([facility]) Type 2 diabetes mellitus without complication, without long-term current use of insulin ([facility]) [facility]* Diagnosis Type 2 diabetes mellitus without complication, without long-term current use of insulin ([facility])- Primary Benign essential hypertension ([facility]) Essential hypertension, benign Chronic GERD Suspected chronic obstructive pulmonary disease based on initial evaluation ([facility]) Mild cognitive impairment Mild cognitive impairment, so stated Acute bronchitis with wheezing Mixed hyperlipidemia ([facility]) Mixed hyperlipidemia Cerumen debris on tympanic membrane of both ears Solitary pulmonary nodule Acquired buried penis documented [facility]* Diagnosis Mild cognitive impairment- Primary Mild cognitive impairment, so stated Memory loss ZENON on CPAP Depression, unspecified depression type ([facility]) History of alcohol abuse Nondependent alcohol abuse, in remission documented in this encounter [facility]* Diagnosis Memory loss- Primary ZENON on CPAP Depression, unspecified depression type ([facility]) History of alcohol abuse Nondependent alcohol abuse, in remission documented in [facility]* Diagnosis Type 2 diabetes mellitus without complication, without long-term current use of insulin ([facility]) documented [facility]* Diagnosis Solitary pulmonary nodule- Primary Benign essential hypertension Essential hypertension, benign Chronic GERD Type 2 diabetes mellitus without complication, without long-term current use of insulin ([facility]) Persistent depressive disorder Hyperlipidemia, unspecified hyperlipidemia type Morbid (severe) obesity due to excess calories (E66.01) Primary hypertension Unspecified essential hypertension Coronary arteriosclerosis Coronary atherosclerosis of unspecified type of vessel, kluti kaah or graft Obstructive sleep apnea syndrome Obstructive sleep apnea (adult) (pediatric) Suspected chronic obstructive pulmonary disease based on initial evaluation ([facility]) Skin mole Solitary pulmonary nodule- Primary Obstructive sleep apnea syndrome Obstructive sleep apnea (adult) (pediatric) Primary hypertension Unspecified essential hypertension Type 2 diabetes mellitus without complication, without long-term current use of insulin ([facility]) Hyperlipidemia, unspecified hyperlipidemia type Type 2 diabetes mellitus without complication, without long-term current use of insulin ([facility])- Primary Mild cognitive impairment Mild cognitive impairment, so stated Primary hypertension Unspecified essential hypertension Solitary pulmonary nodule Dyslipidemia Other and unspecified hyperlipidemia Coronary arteriosclerosis Coronary atherosclerosis of unspecified type of vessel, kluti kaah or graft BMI 40.0-44.9, adult ([facility] Type 2 diabetes mellitus without complication, without long-term current use of insulin ([facility])- Primary Benign essential hypertension Essential hypertension, benign Chronic GERD Suspected chronic obstructive pulmonary disease based on initial evaluation ([facility]) Mild cognitive impairment Mild cognitive impairment, so stated Acute bronchitis with wheezing Mixed hyperlipidemia Mixed hyperlipidemia Cerumen debris on tympanic membrane of both ears Solitary pulmonary nodule Acquired buried penis Type 2 diabetes mellitus without complication, without long-term current use of insulin ([facility])- Primary Mixed hyperlipidemia Mixed hyperlipidemia Primary hypertension Unspecified essential hypertension BMI 40.0-44.9, adult ([facility] Acute bronchitis with wheezing Hyperlipidemia, unspecified Essential (primary) hypertension Unspecified essential hypertension Major depressive disorder, recurrent, mild Major depressive disorder, recurrent episode, mild Chronic GERD Persistent depressive disorder Suspected chronic obstructive pulmonary disease based on initial evaluation ([facility]) Benign essential hypertension- Primary Essential hypertension, benign Pulmonary fibrosis, unspecified ([facility]) Morbid (severe) obesity due to excess calories ([facility] Body mass index (BMI) 40.0-44.9, adult ([facility] Obstructive sleep apnea syndrome Obstructive sleep apnea (adult) (pediatric) Coronary arteriosclerosis Coronary atherosclerosis of unspecified type of vessel, [place] or graft Chronic GERD Type 2 diabetes mellitus without complication, without long-term current use of insulin ([facility]) Mixed hyperlipidemia Mixed hyperlipidemia Episode of recurrent [...] Coronary atherosclerosis of unspecified type of vessel, [place] or graft Morbid (severe) obesity due to excess calories ([facility] Type 2 diabetes mellitus without complication, without long-term current use of insulin ([facility]) Primary hypertension Unspecified essential hypertension Hyperlipidemia, unspecified Suspected chronic obstructive pulmonary disease based on initial evaluation ([facility]) documented in this encounter [facility] HealthcareEvaluation note* Diagnosis Solitary pulmonary nodule- Primary Benign essential hypertension Essential hypertension, benign Chronic GERD Type 2 diabetes mellitus without complication, without long-term current use of insulin ([facility]) Persistent depressive disorder Hyperlipidemia, unspecified hyperlipidemia type Morbid (severe) obesity due to excess calories (E66.01) Primary hypertension Unspecified essential hypertension Coronary arteriosclerosis Coronary atherosclerosis of unspecified type of vessel, [place] or graft Obstructive sleep apnea syndrome Obstructive sleep apnea (adult) (pediatric) Suspected chronic obstructive pulmonary disease based on initial evaluation ([facility]) Skin mole Solitary pulmonary nodule- Primary Obstructive sleep apnea syndrome Obstructive sleep apnea (adult) (pediatric) Primary hypertension Unspecified essential hypertension Type 2 diabetes mellitus without complication, without long-term current use of insulin ([facility]) Hyperlipidemia, unspecified hyperlipidemia type Type 2 diabetes mellitus without complication, without long-term current use of insulin ([facility])- Primary Mild cognitive impairment Mild cognitive impairment, so stated Primary hypertension Unspecified essential hypertension Solitary pulmonary nodule Dyslipidemia Other and unspecified hyperlipidemia Coronary arteriosclerosis Coronary atherosclerosis of unspecified type of vessel, [place] or graft BMI 40.0-44.9, adult ([facility] Type 2 diabetes mellitus without complication, without long-term current use of insulin ([facility] Primary Benign essential hypertension Essential hypertension, benign Chronic GERD Suspected chronic obstructive pulmonary disease based on initial evaluation ([facility]) Mild cognitive impairment Mild cognitive impairment, so stated Acute bronchitis with wheezing Mixed hyperlipidemia Mixed hyperlipidemia Cerumen debris on tympanic membrane of both ears Solitary pulmonary nodule Acquired buried penis Type 2 diabetes mellitus without complication, without long-term current use of insulin ([facility])- Primary Mixed hyperlipidemia Mixed hyperlipidemia Primary hypertension Unspecified essential hypertension BMI 40.0-44.9, adult ([facility]) Acute bronchitis with wheezing Hyperlipidemia, unspecified Essential (primary) hypertension Unspecified essential hypertension Major depressive disorder, recurrent, mild Major depressive disorder, recurrent episode, mild Chronic GERD Persistent depressive disorder Suspected chronic obstructive pulmonary disease based on initial evaluation ([facility]) Benign essential hypertension- Primary Essential hypertension, benign Pulmonary fibrosis, unspecified (HCC) Morbid (severe) obesity due to excess calories ([facility] Body mass index (BMI) 40.0-44.9, adult ([facility]) Obstructive sleep apnea syndrome Obstructive sleep apnea (adult) (pediatric) Coronary arteriosclerosis Coronary atherosclerosis of unspecified type of vessel, [place] or graft Chronic GERD Type 2 diabetes [...] Coronary atherosclerosis of unspecified type of vessel, [place] or graft Morbid (severe) obesity due to excess calories ([facility] Type 2 diabetes mellitus without complication, without long-term current use of insulin (HCC) Primary hypertension Unspecified essential hypertension Hyperlipidemia, unspecified Suspected chronic obstructive pulmonary disease based on initial evaluation ([facility]) Hyperlipidemia, unspecified documented in this encounter [facility]Evaluation noteNo assessment information availableAshtabula General Hospital Work Phone: Hospital Discharge instructions No data available for this section [facility] Hospital Discharge instructionsAmbulatory Orders* Referral to PT (Nima Flores) Time Frame: 08/13/25, Location: [facility] Work Phone: Progress note No data available for this section [facility] Reason for referral (narrative)* Consultation (Routine) - Pending ReviewSpecialtyDiagnoses / ProceduresReferred By ContactReferred To ContactUrology Diagnoses Acquired buried penis Procedures [place] OFFICE/OUTPATIENT NEW HIGH MDM 60 MINUTES Chioma Hardy NP [address] [place] [phone] Maximilian Mata MD [address] [place] [address] Referral IDStatusReasonStart DateExpiration DateVisits RequestedVisits [id number] Review Specialty Services Required / Scheduling Instructions Please include OV note from 07/23 [facility] HealthcareReason for referral (narrative)No reason for referral information availableAshtabula General Hospital Work Phone: Reason for visit Narrative* Consultation (Routine) - ClosedSpecialtyDiagnoses / ProceduresReferred By ContactReferred To Contact Psychology / Neurology Diagnoses Mild cognitive impairment Procedures [place] OFFICE/OUTPATIENT NEW HIGH MDM 60 MINUTES Tania Lucero DO [address] [place] [address] Deshawn Terrell, PhD [address] [place] [phone] Referral IDStatusReasonStart DateExpiration DateVisits RequestedVisits [id number] Specialty Services Required / [facility] Healthcare Summary Purpose Family History No [...] without long-term current use of insulin ([facility] Chioma Hardy NP [address] [place] [phone] Referral IDStatusReasonStart DateExpiration DateVisits RequestedVisits [id number] Chief Complaint and Reason for Visit Chief [...] June 25, 2025 1:16 pm CAD in [place] artery August 13 9:29am Chronic lower back [...] June 25, 2025 1:16 pm CAD in [place] artery August 13 9:29am Chronic lower back [...] Reason for Visit Admit Date CAD in [place] artery August 13 9:29am Chronic lower back [...] September 03, 2025 9 :13am CAD in [place] artery September 25, 2025 8:56am Chronic lower [...] section and content) DATE CREATED AUTHOR 07/03/2022 [facility] DATE CREATED AUTHOR AUTHOR'S ORGANIZ ATION 03/15/2025 [facility] DATE CREATED AUTHOR AUTHOR'S ORGANIZ ATION 03/21/2025 [facility] DATE CREATED AUTHOR AUTHOR'S ORGANIZ ATION 04/07/2025 [facility] DATE CREATED AUTHOR AUTHOR'S ORGANIZ ATION 05/15/2025 [facility] DATE CREATED AUTHOR AUTHOR'S ORGANIZ ATION 09/26/2025 [facility] DATE CREATED AUTHOR AUTHOR'S ORGANIZ ATION 10/03/2025 [facility] Patient Care team informatio n (unrecognized section and content) Team MemberRelationshipSpecialtyStart DateEnd Date Rachid Barillas MD [address] [place] [address] PCP - [employer]10/27/23 Rachid Barillas MD [address] [place] [address] PCP - [facility] Medicine07/23/24 Chioma Hardy, DEX [address] [place] [address] [facility]07/01/24Team MemberRelationshipSpecialtyStart DateEnd Date Rachid Barillas MD [address] [place] [address] PCP - [employer]10/27/23 Rachid Barillas MD [address] [place] [address] PCP - [facility]07/23/24 Chioma Hardy, RACE ENGINE BUILDER [address] [place] [address] Nurse PractitionerP[facility]07/01/24Team MemberRelationshipSpecialtyStart DateEnd Date Rachid Barillas MD [address] [place] [address] PCP - [employer]10/27/23 Rachid Barillas MD [address] [place] [address] PCP - [facility]07/23/24 Chioma Hardy, DEX [address] [place] [address] Nurse Pract[facility]07/01/24Team MemberRelationshipSpecialtyStart DateEnd Date Rachid Barillas MD [address] [place] [address] PCP - [employer]10/27/23 Rachid Barillas MD [address] [place] [address] PCP - [facility]07/23/24 Chioma Hardy NP [address] [place] [address] Nurse Pract[facility]07/01/24Team MemberRelationshipSpecialtyStart DateEnd Date Rachid Barillas MD [address] [place] [address] PCP - [employer]10/27/23 Rachid Barillas MD [address] [place] [address] PCP - [facility]07/23/24 Chioma Hardy NP [address] [place] [address] Nurse [facility]07/01/24Team MemberRelationshipSpecialtyStart DateEnd Date Rachid Barillas MD [address] [place] [address] PCP - [employer]10/27/23 Rachid Barillas MD [address] [place] [address] PCP - [facility]07/23/24 Chioma Hardy, DEX [address] [place] [address] Nurse [facility]07/01/24Team MemberRelationshipSpecialtyStart DateEnd Date Rachid Barillas MD [address] [place] [address] [facility] - [facility]10/27/23 Rachid aBrillas MD [address] [place] [address] PCP - [facility]07/23/24 Chioma Hardy, RACE ENGINE BUILDER [address] [place] [address] Nurse Pract[facility]07/01/24Team MemberRelationshipSpecialtyStart DateEnd Date Rachid Barillas MD [address] [place] [address] PCP - [employer]10/27/23 Rachid Barillas MD [address] [place] [address] PCP - [facility]07/23/24 Chioma Hardy NP [address] [place] [address] Nurse [facility]07/01/24Team MemberRelationshipSpecialtyStart DateEnd Date Rachid Barillas MD [address] [place] [address] PCP - [employer]10/27/23 Rachid Barillas MD [address] [place] [address] PCP - [facility]07/23/24 Chioma Hardy NP [address] [place] [address] Nurse Pract[facility]07/01/24Team MemberRelationshipSpecialtyStart DateEnd Date Rachid Barillas MD [address] [place] [address] [facility] - [facility]10/27/23 Rachid Barillas MD [address] [place] [address] PCP - [facility]07/23/24 Chioma Hardy NP [address] [place] [address] Nurse Pract[facility]07/01/24Team MemberRelationshipSpecialtyStart DateEnd Date Rachid Barillas MD [address] [place] [address] PCP - [employer]10/27/23 Rachid Barillas MD [address] [place] [address] PCP - [facility]07/23/24 Chioma Hardy NP [address] [place] [address] Nurse Pract[facility]07/01/24Team MemberRelationshipSpecialtyStart DateEnd Date Rachid Barillas MD [address] [place] [address] PCP - [employer]10/27/23 Rachid Barillas MD [address] [place] [address] PCP - [facility]07/23/24 Chioma Hardy, RACE ENGINE BUILDER [address] [place] [address] Nurse Pract[facility]07/01/24Team MemberRelationshipSpecialtyStart DateEnd Date Rachid Barillas MD [address] [place] [address] PCP - [employer]10/27/23 Rachid Barillas MD [address] [place] [address] [facility]07/23/24 Chioma Hardy, DEX [address] [place] [address] Nurse Pract[facility]07/01/24Team MemberRelationshipSpecialtyStart DateEnd Date Rachid Barillas MD [address] [place] [address] PCP - [facility]07/23/24 Shaikh Acevedo MD [address] [place] [address] PCP - [employer]10/27/23 Chioma Hardy NP Nurse Pract[facility]07/01/24Team MemberRelationshipSpecialtyStart DateEnd Date Rachid Barillas MD [address] [place] [address] PCP - [facility]07/23/24 Shaikh Acevedo MD [address] [place] [address] PCP - [employer]10/27/23 Chioma Hardy NP [facility]07/01/24Team MemberRelationshipSpecialtyStart DateEnd Date Rachid Barillas MD [address] [place] [address] PCP - [facility]07/23/24 Shaikh Acevedo MD [address] [place] [address] PCP - [employer]10/27/23 Chioma Hardy RACE ENGINE BUILDER Nurse Pract[facility]07/01/24Team MemberRelationshipSpecialtyStart DateEnd Date Rachid Barillas MD [address] [place] [address] PCP - [facility]07/23/24 Shaikh Acevedo MD [address] [place] [address] [facility] - [facility]10/27/23 Chioma Hardy NP Nurse Pract[facility]07/01/24Team MemberRelationshipSpecialtyStart DateEnd Date Rachid Barillas MD [address] [place] [address] PCP - [facility]07/23/24 Shaikh Acevedo MD [address] [place] [address] PCP - [employer]10/27/23 Chioma Hardy NP Nurse [facility]07/01/24Team MemberRelationshipSpecialtyStart DateEnd Date Rachid Barillas MD [address] [place] [address] PCP - [facility]07/23/24 Shaikh Acevedo MD [address] [place] [address] PCP - [employer]10/27/23 Chioma Hardy NP [facility]07/01/24 Team Status: Active Member Role Status Dates NON STAFF Primary Care Provider Active Team Status: Inactive Member Role Status Dates NON STAFF Primary Care Provider Active Start: June 25, 2025 End: June 25, 2025Brian Youngending ProviderActiveStart: June 25, 2025 End: June 25, 2025 Team Status: Active Member Role Status Dates Lela Solorzano RACE ENGINE BUILDER-C Primary Care Provider Active Team Status: Inactive Member Role Status Dates Lela Solorzano RACE ENGINE BUILDER-C Primary Care Provider Active Start: August 13, 2025 End: August 13, 2025Lela Solorzano RACE ENGINE BUILDER-CAttending ProviderActiveStart: August 13, 2025 End: August 13, 2025 Team Status: Inactive Member Role Status Dates Tania Lucero DO Attending Provider Active Start: September 03, 2025 End: September 03, 2025Lela Solorzano RACE ENGINE BUILDER-CPrimary Care ProviderActiveStart: September 03, 2025 End: September 03, 2025 Team Status: Active Member Role/Relationship Status Dates Lela Solorzano RACE ENGINE BUILDER-C Primary Care Provider Active Team Status: Inactive Member Role/Relationship Status Dates Lela Solorzano RACE ENGINE BUILDER-C Primary Care Provider Active Start: August 13, 2025 End: August 13, 2025Lela Solorzano RACE ENGINE BUILDER-CAttending ProviderActiveStart: August 13, 2025 End: August 13, 2025 Team Status: Inactive Member Role/Relationship Status Dates Tania Lucero DO Attending Provider Active Start: September 03, 2025 End: September 03, 2025Lela Solorzano NP-CPrwakemed north hospitalry Care ProviderActiveStart: September 03, 2025 End: [...] GeneralFamily Medicine07/23/24 Shaikh Acevedo MD [address] [place] [address] PCP - [employer]10/27/23 Chioma Hardy NP Nurse Practitionermily Medicine07/01/24Team MemberRelationshipSpecialtyStart DateEnd Date Shaikh Acevedo MD PCP - [facility] Medicine Rachid Barillas MD PCP - [facility]07/23/24 Shaikh Acevedo MD [address] [place] [address] PCP - [facility]10/27/23 Chioma Hardy NP Nurse Pract[facility]07/01/24Team MemberRelationshipSpecialtyStart DateEnd Date Rachid Barillas MD PCP - [facility]07/23/24 Shaikh Acevedo MD [address] [place] [address] PCP [facility]10/27/23 Chioma Hardy NP Nurse Pract[facility]07/01/24 Reason for Visit (unrecogniz ed section and content) ReasonCommentsFollow-upReasonCommentsMed Change RequestReasonCommentsFollow-up ReasonOnset DateCommentsMed [id number] Annual Wellness Visit InitialReasonOnset DateCommentsMed Zdjnbj5205/19/2025 Goals (unrecognized section and content) Goals may [...] BE BASED ON THE PRIMARY CLINICAL RECORDS. [facility] [employer] [facility]. provides no warranty or guarantee of the accuracy or completeness of information in this document.
[2025-11-24] MEDS: BUPIVACAINE HCL 0.25% PF 25 MG/10 ML VIAL 8 ML INJ (07:36)
[2025-11-24] MEDS: LIDOCAINE HCL 2% 400 MG/20 ML MDV INJ (07:36)
--- NOTE | 2025-11-24 07:38 | W.PM.PROCNOT ---
Date of procedure: 11/24/25 Pre-op diagnosis: Pain due to lumbar spondylosis without myelopathy Post-op diagnosis: same as pre-op Procedure: Procedure: Bilateral L3-4, L5-S1 medial branch block Medications: Bupivacaine 0.25% 8cc The patient was seen and examined in the preoperative holding area.? An informed consent was obtained and placed on the chart.? The patient was brought to the medical procedure unit and placed in the prone position.? A timeout was completed verifying correct patient, procedure site, positioning, plan, and special equipment.? Using aseptic technique, the needle was placed at left L3. Under direct fluoroscopic visualization a Quincke-tipped spinal needle was advanced to the junction of the superior articulating process with the transverse process at the designated medial branch segment.? Preceded by negative aspiration, the above-mentioned injectate was placed in 1 mL aliquots.? The procedure was repeated at left L4, L5, S1.? The needle was removed and insertion site was covered. The same procedure, at the same levels, was completed on the right side. The patient was taken to the postprocedural recovery area and monitored for an appropriate length of time before found suitable for discharge in the company of a responsible adult. Anesthesia: Local Surgeon: Jennifer Aldrich Pathology: none sent Condition: stable Disposition: no change
[2025-11-24 07:39] VITALS: BP 150/72; BP 151/72; PULSE 72; PULSE 74; O2SAT 93; O2SAT 94
== END 2025-11-24 07:42 | disposition home or self-care (01) ==
PROVIDERS: PCP Nurse Practitioner; Visit Provider Anesthesiology
DX: M47.816 Spondylosis without myelopathy or radiculopathy, lumbar region (principal); G89.29 Other chronic pain; E11.8 Type 2 diabetes mellitus with unspecified complications; Z79.84 Long term (current) use of oral hypoglycemic drugs
CPT/HCPCS: 36415; 64493; 64494; 82948; J0665

== ENCOUNTER 2025-11-26 13:21 | Outpatient (OUT) | payer MEDICARE, SELFPAY ==
--- OUTSIDE RECORDS SUMMARY | 2025-11-26 13:23 | XMS_ITS | Clinical Summary ---
Author Organization [facility] Address [id number] [place] [address] Care Team Providers Care Brazing Machine Operator Name Role Phone Rachid Henning MD Primary Care Provider [phone] Allergies Active AllergyReactionsCriticalityNoted DateCommentsOxycodoneHives,ItchingLow 05/13/2013 Medications MedicationSigDispense QuantityRefillsLast FilledStart DateEnd DateStatus aspirin 81 mg Take 81 mg by mouth daily.Active lisinopril-hydroCHLOROthiazide (PRINZIDE,ZESTORETIC) 20-12.5 mg per tablet Indications:Essential hypertensionTake 1 tablet by mouth in the morning and 1 tablet before bedtime. 180 tablet ctive metFORMIN (GLUCOPHAGE) 850 mg tablet Indications:Type 2 diabetes mellitus without complication, without long-term current use of insulin ([facility])Take 1 tablet (850 mg total) by mouth [...] Active Problems ProblemNoted DateDiagnosed DateObesity (BMI 30-39.9)1Essential weigsemvarez41/18/7265Bfxvgbejjfra73/18/2020Type 2 diabetes mellitus without complication, without long-term current use of jfagcmm6511/13/2020Persistent depressive gncsalnl01/18/2020Chronic GERD11/13/2020Right lower lobe pulmonary vqbbtx6011/13/2020 Overview (07/09/2021): 2013: 5 mm 2020: 8 mm Immunizations ImmunizationAdministration DatesNext DueCOVID-19, mRNA, LNP-S, PF, 100mcg/0.5mL Dose03/06/2021,02/06/2021Influenza (IM) Preservative Free08/05/2013,08/09/2012, 08/12/2011Influenza, Im Trivalent Htbqzqfsdffn02/18/2018,09/15/2017,10/16/2015 Influenza, Injectable, Yiyesqjdctez11/23/2019Influenza, Injectable, quadrivalent (PF)09/12/2021,08/26/2020Influenza, Fecjzxgevce12/01/2020,07/28/2011Zoster Vaccine Jdwilpbbvsl51/01/2019,11/27/2018,09/11/2018,03/10/2018 Family History Medical HistoryRelationNameCommentsHeart diseaseBrother 1Heart diseaseBrother 2 No Known ProblemsFatherNo Known ProblemsMaternal GrandfatherNo Known Problems Maternal GrandmotherDiabetesMotherHeart diseaseMotherNo Known ProblemsPaternal GrandfatherNo Known ProblemsPaternal GrandmotherThyroid cancerSisterRelationName StatusCommentsBrother 1DeceasedBrother 2DeceasedFatherDeceasedMaternal GrandfatherDeceasedMaternal GrandmotherDeceasedMotherDeceasedPaternal GrandfatherDeceasedPaternal GrandmotherDeceasedSisterAlive Social History Tobacco UseTypesPacks/DayYears UsedDateSmoking Tobacco: UkuiifYpgjudvvdu137549 - 1990Smokeless Tobacco: CurrentChew Tobacco Cessation:Ready to Q uit: Not Asked; Counseling Given: Not Answered Alcohol UseStandard Drinks/WeekCommentsYes0 (1 standard drink = 0.6 oz pure alcohol)PHQ-2AnswerDate RecordedTotal Qjfrd8361ChildcareAnswerDate DwundwklLwlewruhvEzhibue66/15/2020EmploymentAnswerDate RecordedEmploymentUnknown 11/10/2020Purpose - LifeAnswerDate RecordedPurpose and direction in lifeUnknown 12/30/2020ex and Gender InformationValueDate RecordedSex Assigned at BirthNot on fileLegal CuaZpew5707/02/2015 11:26 AM EDTGender IdentityNot on fileSexual OrientationNot on file Last Filed Vital Signs Vital SignReadingTime TakenCommentsBlood Rjxgxqgp860/8411 9:05 AM EST Hkdnj006810/03/2022 8:29 AM WESCpuqffgwrfc26.9 ??C (98.5 ??F)07/13/2021 8:18 AM EDTRespiratory Lxex403112/03/2021 8:29 AM ESTOxygen Uviageqbap63%10/03/2022 8:29 AM ESTInhaled Oxygen Concentration--Dflpzd760.3 kg (285 lb)10/03/2022 8:29 AM LNLYhvlpo166.9 cm (6')10/03/2022 8:29 AM ESTBody Mass Index38.6510/03/2022 8:29 AM EST Plan of Treatment Health MaintenanceDue DateLast DoneCommentsDiabetic Ophthalmology Exam1957 Depression Kwniobgap98/03/1970Tobacco Iyyljmmjl65/03/1970Adult BMI Screening 1975Diabetic Foot Exam1975DTaP,Tdap and Td Vaccines (1 - Tdap) 1976Fall Risk Yueguyuhk31/03/8681Amxjoscdevz45/13/COVID-19 Vaccine ( season)511/, 03/06/2021, 02/06/2021 Influenza Fzroqoy34/12/2022, 09/12/2021, 08/27/2020, Additional history existsStatin Use: Xpafkrrs94/24/488326/RSV ( or age 60+ yrs) (1 - 1-dose 75+ series)2032Zoster (Shingles) VaccineCompleted 04/27/2019, 11/27/2018, 09/11/2018, Additional history exists Medical Devices Not on file Insurance Care Teams Team MemberRelationshipSpecialtyStart DateEnd Date Rachid Henning MD PCP - GeneralFamily Medicine04/03/23
--- OUTSIDE RECORDS SUMMARY | 2025-11-26 13:23 | XMS_ITS | Clinical Summary ---
Author Organization [facility] Address [address] [place] [address] Care Team Providers Care Coyote Hunter Name Role Phone Rachid Henning MD Primary Care Provider [phone] Allergies Active AllergyReactionsCriticalityNoted QwpsPmwiqlnzGrbirbyjk92/24/2022 Medications MedicationSigDispense QuantityRefillsLast FilledStart DateEnd DateStatus amLODIPine [...] 24 hr tablet Indications:Coronary artery disease involving [place] coronary artery of [place] heart without angina pectorisTake 1 tablet (60 mg) by mouth in the morning. 90 tablet ctive isosorbide mononitrate ER (Imdur) 60 mg 24 hr tablet Indications:Coronary artery disease involving [place] coronary artery of [place] heart without angina pectorisTake 1 tablet (60 mg) by mouth in the morning. 90 tablet Discontinued(Reorder) Active Problems ProblemNoted DateDiagnosed DateChest pain03/11/2025Low adlltn1103/11/2025Umbilical nbduiz6603/11/2025alcified lymph nodes02/10/2025ED (erectile dysfunction) 02/10/2025Episode of recurrent major depressive rnyxoxlv88/17/2025Former tobacco use02/10/2025Hypogonadism male02/10/2025Morbid (severe) obesity due to excess cwilrojz66/17/2025Prostate cancer lrnaayrkg52/17/2025Acquired buried penis 4Cerumen debris on tympanic membrane of both ears07/23/2024Mild cognitive kdmijcxvfj09/27/2024Suspected chronic obstructive pulmonary disease based on initial ekuxvjcbvc61/29/2024cute ayjrblkay77/24/3819Uoawig92/24/2022 Benign essential grfeciehbgpl67/24/2022oronary xmidizpbfusvttzc64/24/2022ough 07/20/2022epressive bvexgdng60/24/2126Rjswxccfqcedna19/24/2022Hypertensive dvbijcuy84/24/2022Impaired fasting aeotgqr7307/20/2022Neck hgonmw6307/20/2022ain in joint involving ankle and foot07/20/2022recordial pain07/20/2022olitary pulmonary wkkmjd9007/20/2022besity (BMI 30-39.9)/hronic GERD yslipidemiaType 2 diabetes mellitus without complication, without long-term current use of ovbguhw8611/13/2020 08/31/20230696Zknxmskebwiw06Rectal isjsittf54 Sleep apnea Encounters DateTypeDepartmentCare EdwjSmabuldkssp01/15/2025[facility] [address] [place] [address] Arline Ambriz MA Coronary artery disease involving [place] coronary artery of [place] heart without angina zkjpyddh81/15/2025[facility] [address] [place] [phone] Arline Ambriz MA from Last 3 Months [...] Recorded Sex Assigned at BirthNot on fileLegal TusBzrj3405/25/2022 11:37 PM EDTGender IdentityNot on fileSexual OrientationNot on file Last Filed Vital Signs Vital SignReadingTime TakenCommentsBlood Mbhfztlb165/8604 9:17 AM EDT Ioafx3842 9:17 AM EDTTemperature--Respiratory Xbwr706703/22/2024 12:50 PM EDTOxygen Fpcsrhiifs00%03/14/2025 9:17 AM EDTInhaled Oxygen Concentration-- Tgrixb688 kg (314 lb)03/14/2025 9:17 AM RRJMouywh179.9 cm (6')03/14/2025 9:17 AM EDTBody Mass Index42.59003/14/2025 9:17 AM EDT Plan of Treatment Health MaintenanceDue DateLast DoneCommentsCT Lmnzprhmtftv67/03/1958Diabetes: Hemoglobin A1C1957FIT-DNA1957FIT1957FOBT1957Medicare Annual Wellness (AWV)1955 9789Xdvsepfeirpxd92/03/1958Diabetes: Retinopathy Bxvtysaya55/03/1968Depression Ebaswdzta42/03/1970Pneumococcal Vaccine: 50+ Years (1 of 2 - PCV)1976Adult Uxgydcr4811/29/1979Fall Risk Mmhnzjitp28/03/2023 Diabetes: Urine Protein Isudkakoe82/OVID-19 Vaccine ( season), 03/06/2021, 02/06/2021Influenza Vaccine (#1) /12/2022, 09/12/2021, 08/27/2020, Additional history exists Wqfnmwubdqp11/03/203407/01/2024, 04/08/2014Colorectal Cancer Kkhynqkfy14/03/2034 Zoster WcgcggazTrnbqffqw45/01/2019, 11/27/2018, 09/11/2018, Additional history existsHIB VaccinesAged OutNo [...] Date Rachid Henning MD [address] [place], [place] [id number] [facility] - Xwunzfr38/5/23
--- OUTSIDE RECORDS SUMMARY | 2025-11-26 13:23 | XMS_ITS | Clinical Summary ---
Author Organization [facility] Address [address], [address] [place] [address] Care Team Providers Care Trichologist Name Role Phone Marbella Ortiz MD Primary [...] in AM.Active Active Problems ProblemNoted DateDiagnosed DateRectal gugnrcvo52/22/4231Suackh98/22/2014 Rrotfwzxfzvf89/22/2014HTN (hypertension)05/13/2013Sleep apnea04/16/2012Lung nodule, Rt04/16/2012 Immunizations ImmunizationAdministration DatesNext DueInfluenza Virus Cxmjlck0407/28/2011 Family History Medical HistoryRelationNameCommentsDiabetesMotherHeart AttackMotherRelationName StatusCommentsFatherDeceasedMotherDeceased Social History Tobacco UseTypesPacks/DayYears UsedDateSmoking Tobacco: FormerCigarettes1.54 05/13/1978 - 05/13/1982Smokeless Tobacco: CurrentSnuffAlcohol UseStandard Drinks/WeekCommentsYes2 (1 standard drink = 0.6 oz pure alcohol)Sex and Gender InformationValueDate RecordedSex Assigned at BirthNot on fileLegal SexMale 01/06/2013 9:22 AM ESTGender IdentityNot on fileSexual OrientationNot on file Last Filed Vital Signs Vital SignReadingTime TakenCommentsBlood Gkwnurwn298/68006/20/2017 1:08 PM EDT Segow649506/20/2017 1:08 PM PXXAorjczpsgqq11.2 ??C (97.1 ??F)06/20/2017 1:08 PM EDTRespiratory Cgdh538206/20/2017 1:08 PM EDTOxygen Txdqyzqiiw48%06/20/2017 1:08 PM EDTInhaled Oxygen Concentration--Teotoo929.3 kg (263 lb)06/20/2017 1:08 PM FQTFqgkrn782.9 cm (6')06/20/2017 1:08 PM EDTBody Mass Index35.67006/20/2017 1:08 PM EDT Plan of Treatment Not on file Medical Devices ImplantedTypeAreaManufacturerDevice IdentifierShelf Expiration DateModel / Serial / LotPatch Juve Ventralex St W/Strap Cir Med 6.4cm Implanted:Qty: 1 on 05/17/2017 by [facility] [place]: UmbilicalCR [employer]-PMM03/24/[id number] / / [id number] Insurance Care Teams Team MemberRelationshipSpecialtyStart DateEnd Date Marbella Ortiz MD [facility]04/12/12
--- OUTSIDE RECORDS SUMMARY | 2025-11-26 13:23 | XMS_ITS | Patient Health Record ---
Author Organization [facility] [place] Address [address] [place] [address] Care Team Providers Care [place] Boatman Name Role Phone Lela Solorzano CNP Primary Care Provider Unavail able Fracisco Morrison Unavailable [phone] Allergies Allergen (clinical drug ingredient) Drug/Non Drug Allergy documented on EMR Reaction Allergy Type Onset Date Status oxycodone Oxycodone hives Drug Allergy Active Results Component Value Reference Range Notes CT Chest w/o contrast Reviewed date:04/02/2025 10:07:53 AM Interpretation: Performing Lab: Notes/Report: CT chest wo con Reviewed date:04/02/2025 10:44:20 AM Interpretation: Performing Lab: Notes/Report: Source Facility: [place] [address] CT Scan Report Signed Patient: JAYSON PAUL MR#: [id number] : 1955 Acct:[id number] Age/Sex: 69 / M ADM Date: 04/02/25 Loc: CT Attending Dr: Fracisco Morrison D.O. Ordering Physician: Fracisco Morrison D.O. Date of Service: 04/02/25 Procedure(s): CT chest wo con Accession Number(s): [id number] cc: Lela Solorzano NP [place] [address] Patient Name: JAYSON PAUL MRN: [id number] date: 1955 Sex: M Assigned Patient Location: CT Current Patient Location: CT Accession/Order Number: [id number] Exam Date: 04/02/2025 09:52 Report Date: 04/02/2025 [...] [facility] 04/02/2025 9:55 AM Dictation Location: [place] [address] Electronically authenticated by: [id number] Y Date: 04/02/2025 09:55 Dictated By: John Sneed M.D. Signed By: 04/02/25 0957 DD/ 4 TD/TT: Wire Stitcher Operator: Reason For Referral No Information Medications [...] Comme nts Flu, Fluzone High-Dose (2022 -2023) (90160) 65 yrs+ Unknown 09/28/2023 Administered SARS-COV-2 (COVID 19 Moderna - Booster 0.25mL)Pktnomo4510/23/2021dministered ZOSTER (SHINGLES) VACCINE (HZV)Bgrkckh1709/11/2018Administered Social History Tobacco Use: Social History Observation [...] yearsAdditional Findings: Tobacco userChews tobaccoAdditional Findings: Tobacco rgp-yydeSd-orobz cigarette smoker (20-30/day) Problems Problem Type SNOMED Code ICD Code Onset Dates Problem Status W/U Status Risk Notes Problem Solitary pulmonary nodule (953491124) Sonia itary pulmonary nodule (R91.1) ActiveconfirmedProblemMorbid obesity (904087205)Morbid obesity (E66.01)Active confirmedProblemObstructive sleep apnea syndrome (10388151)ZENON (obstructive sleep apnea) (G47.33)ActiveconfirmedProblemDiabetes mellitus type 2 (disorder) (37883382)DM2 (diabetes mellitus, type 2) (E11.9)ActiveconfirmedProblemEx- tobacco user (finding) (380759334)History of tobacco abuse (Z87.891)Active confirmedProblemCalcified granuloma of lung (95942730609603478)Calcified granuloma of lung (J84.10)ActiveconfirmedProblemCalcified lymph nodes (356741351)Calcified lymph nodes (I89.8)Activeconfirmed Vital Signs Heart Rate 77 /min 03/26/2025 Nyznlvrtxrw04.9 degrees Wduvaqhemq21/30/2025Respiratory Rate18 /min03/26/2025 Lyaiyeox24 %03/26/2025lood pressure wfxduufqx36 mm Hg03/26/20252886Lotlni49 in 03/26/2025lood pressure mm Hg03/26/20252119Iniuix039.8 lbs03/26/2025MI 43.23 kg/m203/26/2025 Encounters Encounter Location Date Provider Diagnosis [facility] [address] [place] [address] 03/26/2025 [facility] Solitary pulmonary nodule R91.1 ; Shortness of breath R06.02 ; Calcified granuloma of lung J84.10 ; Calcified lymph nodes I89.8 ; ZENON (obstructive sleep apnea) G47.33 ; DM2 (diabetes mellitus, type 2) E11.9 ; History of tobacco abuse Z87.891 and Morbid obesity E66.01 [facility] [address] [place] [address] 04/02/2025 [facility] Assessments Encounter Date Diagnosis (ICD [...] 03/06/2024 - [facility] -8mm 07/12/2022 - [facility] -5mm 03/21/2012 - [facility] (presumptive same location as above) The variation between the two most recent studies could be positional, but unclear if it could explain a 5mm difference. This would represent either scar/granuloma vs. an extremely slow growing obnwhwhqpqdlyk-mo-nudw. My suspicion is for the former. Options [...] Date Coverage End Date [employer] [address] [place] [address] [id number]-SLCvxol, MichaelSelf - patient is the insured Medical [...]
--- OUTSIDE RECORDS SUMMARY | 2025-11-26 13:23 | XMS_ITS | Clinical Summary ---
Author Organization [facility] Address [address] [place] [address] Care Team Providers Care Sausage Linker Name Role Phone Tammy Hardy NP Unavailable Rachid Henning MD Primary Care Provider [phone] Shaikh МАРИНА Acevedo Unavailable [phone] Allergies Active AllergyReactionsCriticalityNoted DateCommentsOxycodoneHivesMedium 11/16/2023 Medications [...] by mouth in the morning. 30 tablet 1412//780196/6Active omeprazole (PriLOSEC) [address] capsule Indications:Chronic [...] DateType 2 diabetes mellitus with other specified uocrycndggwe08/17/2025 Assessment & Plan (05/13/2025 6:16 AM EDT): HTN, CAD, ED Encounter for subsequent annual wellness visit (AWV) in Medicare patient 05/13/2025 Assessment & Plan (05/13/2025 6:17 AM EDT): Reviewed Ht/Wt/BMI Recommend eye exam yearly Recommend dental exams twice a year Balance work/leisure activities Exercises is recommended most days of the week (appropriate as chronic conditions allow) Follow up yearly and prn Chest pain03/11/2025Umbilical bawdef0703/11/2025Pulmonary fibrosis, unspecified 02/10/2025 Assessment & Plan (02/10/2025 6:57 AM EDT): Follows with dr rust Current meds: albuterol prn Morbid (severe) obesity due to excess rtvugjzl18/17/2025 Assessment & Plan (05/13/2025 6:16 AM EDT): [...] dysfunction)02/10/2025Former tobacco use02/10/2025Hypogonadism male02/10/2025 Obstructive sleep apnea mwatoahi13/17/2025 Assessment & Plan (05/13/2025 6:15 AM EDT): [...] that supplies your machine and tubing/filters etc: [facility] Doctor that manages your ZENON: [...] that supplies your machine and tubing/filters etc: [facility] Doctor that manages your ZENON: Dr Og Episode of recurrent major depressive briffcqf32/17/2025 Assessment & Plan (02/10/2025 1:45 PM EDT): Current med: paxil ( has been on this 15-20 years) PHQ 9=2 VINICIO 7= 0 Prostate cancer tcsadoruj51/17/2025 Overview (03/14/2025): 03/13/25: 1.70 Cerumen debris on [...] Follow up in one month Mild cognitive jmhpdtpdix41/27/2024 Assessment & Plan (02/10/2025 7:03 AM EDT): Under the care of neurology Has also had MRI brain and neuropsych testing as well Assessment & Plan (07/23/2024 12:18 PM EDT): Following with Neurology- Sees Dr. Lucero and was referred to additional specialisat @ [facility] Neurology- Appointment on 07/30/2024; MRI completed [...] underlying reactive airway disease Order PFTs. Coronary oopjgdqxdacpoqiq38/24/2022 Assessment & Plan (05/13/2025 6:15 AM EDT): Current meds: statin, imdur, demarco/hydrochlorothiazide, b denice, asa Cardiology: [facility] Assessment & Plan (02/10/2025 1:44 PM EDT): Current meds: statin, imdur, demarco/hydrochlorothiazide, b denice, asa Cardiology: [facility] Assessment & Plan (05/23/2024 10:57 AM EDT): Non obs CAD on [facility] in 2014. On ASA, stain, imdur and Toprol Follows [facility] cardiology. Denies CP, SOB, palpitations. Assessment & Plan (01/25/2024 11:02 AM EST): Non obs CAD on [facility] in 2014. On ASA, stain, imdur and Toprol Follows [facility] cardiology. Denies CP, SOB, palpitations. Tsxfrugpndkkjf62/24/2022 Assessment & Plan (02/10/2025 7:01 AM EDT): [...] On lipitor, check lipid panel. Solitary pulmonary iyxofw9307/20/2022 Overview (04/02/2025): Fu CT done 04/02/25 by [...] pulm nodule left lower lobe Benign essential yswzutstvzcb03/18/2020 Assessment & Plan (05/13/2025 6:15 AM EDT): [...] without complication, without long-term current use of ihgikuj7511/13/2020 Assessment & Plan (05/13/2025 10:22 AM EDT): [...] DateDiagnosed DateResolved DateType 2 diabetes mellitus without lvpnvyeybjvfs13/17/202506/Skin mole/ Assessment & Plan (01/25/2024 1:12 PM EST): Mole noted over his back. Irregular margin, raised, with color variation. No growth. Suspect melanoma - refer to derm Non-recurrent acute suppurative otitis media of both ears without spontaneous rupture of tympanic upeavghwz88/ Assessment & Plan (11/16/2023 10:44 AM EST): [...] persistent fever, confusion develops. Acute bronchitis with /3318Dgjckktyjqck91/18/2020 02/10/2025Persistent depressive otqifuzx29 Assessment & Plan (01/25/2024 11:04 AM EST): [...] DatesNext DueInfluenza, High-dose Seasonal, Quadrivalent, Preservative Free09/28/2023Influenza, Tuwaoeyzvmt48/02/2023, 09/12/2021,08/27/2020,08/26/2020,11/18/2019,08/14/2018,09/15/2017,10/16/2015, 08/05/2013,08/09/2012,08/12/2011,07/28/2011Influenza, injectable, quadrivalent 11/18/2019Influenza, injectable, quadrivalent, preservative free09/12/2021, 08/26/2020Influenza, seasonal, jixtosxabd89/18/2018,09/15/2017,10/16/2015 Influenza, seasonal, injectable, preservative free08/05/2013,08/09/2012, 08/12/2011Zoster, Bzesxbsxurr81/01/2019,11/27/2018,09/11/2018,03/10/2018 Family History Medical HistoryRelationNameCommentsCancerBrotherHeart attackBrotherHeart disease BrotherHypertensionBrotherDiabetesMotherCancerSisterHypertensionSisterRelation [...] a week 07/16/2024How often do you attend temple or adventist services?Never07/16/2024o you belong to any clubs or organizations such as temple groups, unions, fraternal or athletic groups, or school groups?No07/16/2024How often do you attend meetings of the clubs or organizations you belong to?Never07/16/2024re you , , , , never , or living with a partner?Pvfuxfq5107/16/2024UDIT-CAnswerDate RecordedQ1: How often do you have a [...] and heating?Not very hard07/16/2024HQ-2AnswerDate RecordedPatient Health Questionnaire-2 Wfkzd709Finlifepoint hospitals [place] of Occupational Health - Occupational Stress QuestionnaireAnswerDate RecordedDo you feel stress - tense, restless, nervous, or anxious, or unable to sleep at night because yourmind is troubled all the time - these days?Only a mthkeq2707/16/2024Exercise Vital Sign AnswerDate RecordedOn average, how many [...] were you homeless or living in a fci (including now)?No07/16/2024Sex and Gender InformationValue Date RecordedSex Assigned at BirthNot on fileLegal GepXcvw9302/08/2023 7:19 PM EDT Gender IdentityNot on fileSexual OrientationNot on file Last Filed Vital Signs Vital SignReadingTime TakenCommentsBlood Knvjsyqs303/8205/13/2025 9:59 AM EDT Ttuqm833805/13/2025 9:59 AM RCECsffcgcewos17.9 ??C (96.7 ??F)05/13/2025 9:59 AM EDTRespiratory Fnhk886005/13/2025 9:59 AM EDTOxygen Lepwsayuhc25%05/13/2025 9:59 AM EDTInhaled Oxygen Concentration--Egnbud662 kg (319 lb 3.2 oz)05/13/2025 9:59 AM QFTHlaowr362.9 cm (6')11/07/2024 9:29 AM ESTBody Mass Index43.29101/08/2024 9:29 AM EST Plan of Treatment Health MaintenanceDue DateLast DoneCommentsCT Cjheodivsilr43/03/1958FIT-DNA 1955FIT1955FOBT1955 1570Vcftziqyvqcov92/03/1958Influenza Vaccine (#1)/12/2022, 09/28/2023, 09/12/2021, Additional history exists Diabetes: Hemoglobin A1C/, 02/10/2025, 02/01/2024, Additional history existsPneumococcal Vaccine: 65+ Years (1 of 2 - PCV)02/10/2026Postponed from 1976 (Patient Refused)Diabetes: Urine Protein Ajhovmodi58/16/2026 03/12/2025, 02/01/2024, 07/12/2022, Additional history existsMedicare Annual Wellness (AWV)6005/13/2025, 05/23/2024, 4Diabetes: Retinopathy Jfoyahnqu28/11/2023, 07/25/2023, 05/29/20233799Zflkrdkfnwx12/03/2034 05/29/2024, 05/29/2024, 04/08/2014Colorectal Cancer Dddfqibbe02/03/2034 Goals GoalPatient Goal TypeAssociated ProblemsRecent ProgressPatient-Stated?Author Help patient manage antidepressant medication Care PlanPatient on antidepressant monitoring Tammy Licea NP Procedures Procedure NamePriorityDate/TimeAssociated DiagnosisCommentsPOCT GLYCOSYLATED HEMOGLOBIN (HGB A1C)Tylrrqw1805/13/2025 10:22 AM EDT Type 2 diabetes mellitus without complication, without long-term current use of insulin (HCC) DIABETIC RETINOPATHY SCREENING - OU - BOTH VTTHZsadjhj33/01/2024 12:41 PM EDT from Last 3 Months or Most Recently Relevant to Health Maintenance Results * (ABNORMAL) POCT glycosylated hemoglobin (Hb A1C) docked device (05/13/2025 10:22 AM EDT)ComponentValueRef RangeTest MethodAnalysis TimePerformed At Pathologist SignatureHemoglobin A1C7.7Specimen (Source)Anatomical Location / LateralityCollection Method / VolumeCollection TimeReceived TimeBloodVenous blood specimen / Cjyyayo0305/13/2025 10:22 AM EDT Narrative Authorizing ProviderResult TypeResult [...] Medicine07/23/24 Shaikh Acevedo MD [address] [place] [address] PCP - [employer]10/27/23 Tammy Hardy NP Nurse PractitionerFamily Medicine07/01/24
--- NOTE | 2025-11-26 13:45 | PM.CN ---
Consult Note: HPI Data of Consult Patient: known to practice within the last 3 years Requesting Physician: Clover Pardo NP Primary Care Provider: Lela Solorzano NP Consult Narrative Reason for consult: low back pain Narrative: Jayson Paul a pleasant 69 year old male with chronic low back pain > 2 years presents for evaluation. pt has failed to benefit from > 6 weeks of PT/HEP, heat, ice, NSAIDs. recently underwent bilateral L3,4,5,S1 MBB #1 with >80% improvement while anesthetized, preop pain up to 9/10 post op pain 0-1/10 with standing, walking, activity > 3 hours. utilizing aleve otc prn with benefit without side effects. cc:: CC: Clover Pardo NP Review of Systems ROS Musculoskeletal Reports: back pain; Denies: extremity pain or joint pain PFSH PFS Medical History Umbilical hernia ?K42.9 - Umbilical hernia without obstruction or gangrene (ICD-10) Gastric reflux ?K21.9 - Gastro-esophageal reflux disease without esophagitis (ICD-10) Dyslipidemia ?E78.5 - Hyperlipidemia, unspecified (ICD-10) Diabetes ?E11.9 - Type 2 diabetes mellitus without complications (ICD-10) Depressive disorder ?F32.A - Depression, unspecified (ICD-10) Coronary arteriosclerosis ?I25.10 - Atherosclerotic heart disease of [place] coronary artery without angina pectoris (ICD-10) Anemia ?D64.9 - Anemia, unspecified (ICD-10) Surgical History H/O umbilical hernia repair ?Z98.890 - Other specified postprocedural states (ICD-10) ?Z87.19 - Personal history of other diseases of the digestive system (ICD-10) History of tonsillectomy and adenoidectomy ?Z90.89 - Acquired absence of other organs (ICD-10) History of cardiac cath ?Z98.890 - Other specified postprocedural states (ICD-10) H/O colonoscopy ?Z98.890 - Other specified postprocedural states (ICD-10) Family History Other Family history of CHF (congestive heart failure) Family history of cancer Family history of diabetes mellitus Family history of hypertension Family history of myocardial infarction Social History Within the past year, how often did you have a drink containing alcohol: 4 or more times a week Within the past year, how many standard drinks containing alcohol did you have on a typical day: 3 or 4 Within the past year, how often did you have six or more drinks on one occasion: weekly Total score: 5 Score interpretation: A score of 4 or more indicates drinking is likely to affect patient's safety. Do you use any of these nicotine containing products: smokeless tobacco Second hand tobacco smoke exposure: No Previous occupational history: Retired- [employer] Highest level of school completed/degree received: Associate degree: occupational, technical, vocational program Meds Home Medications and Allergies Home Medications ?Medication ?Instructions ?Recorded ?Confirmed ?Type amlodipine 10 mg tablet 10 mg PO DAILY 10/30/23 11/24/25 History atorvastatin 40 mg tablet 40 mg PO DAILY 10/30/23 11/24/25 History isosorbide mononitrate 60 mg 60 mg PO DAILY 10/30/23 11/24/25 History tablet,extended release 24 hr lisinopril 20 1 tab PO BID 10/30/23 11/24/25 History mg-hydrochlorothiazide 12.5 mg tablet metformin 850 mg tablet 850 mg PO DAILY 10/30/23 11/24/25 History omeprazole 20 mg capsule,delayed 20 mg PO DAILY 10/30/23 11/24/25 History release paroxetine HCl 40 mg tablet 40 mg PO DAILY 10/30/23 11/24/25 History aspirin 81 mg tablet 81 mg PO DAILY 11/03/25 11/24/25 History fexofenadine 180 mg tablet 180 mg PO DAILY 11/03/25 11/24/25 History ([facility]) Allergies Allergy/AdvReac Type Severity Reaction Status Date / Time oxycodone (From OxyContin) Allergy Hives Verified 11/24/25 06:44 Exam Constitutional Documenting provider has reviewed patient's vital signs: yes Common normals: no apparent distress, oriented x3 and alert General appearance: cooperative HENMT Common normals: normocephalic, hearing grossly normal bilaterally and moist oral mucous membranes Head and scalp: normocephalic Eye Common normals: PERRL Pupil: PERRL Neck & C-Spine Common normals: full ROM General: normal visual inspection Chest Common normals: inspection of chest normal Respiratory Common normals: normal respiratory effort, no retractions and no use of accessory muscles Back & Pelvis Lumbar spine/lower back: ROM limited, pain with ROM, lumbar spinal tenderness and straight leg raise negative bilaterally Sacroiliac joints: SI joints normal Other: positive facet loading bilaterally strength 5/5 in BLE sensation intact BLE Neuro Common normals: oriented x3 Sensorium/orientation: alert Psych Common normals: mental status grossly normal, thought process normal, cooperative, affect normal, speech normal and activity/motor behavior normal Speech: normal speech Thought process: normal thought process Results Additional Findings Additional findings: If on a controlled substance or opioids, I have checked an [place] report on this patient and there are no aberrancies noted in the prescribing history.??If on a controlled substance or opioid a drug screen was completed and reviewed within the last year, and if there has not been a drug screen completed we ordered one today to monitor higher risk, state monitored pain medication use. As part of providing excellent, safe, comprehensive care, the following was completed at our patient's visit: 1. A medication reconciliation and review to ensure accurate knowledge of current/active medications, including asking our patients to inform us about any [id number] medications or herbal remedies/nutritional supplements/alternative remedies. 2. A review to specifically ensure our patients have had annual screening for screening for depression, screening for tobacco use, and screening for unhealthy alcohol use. For concerning screenings had a discussion with the patient, provided patient education, and recommended follow-up with primary care provider when appropriate. If patient noted with a risk of falling, they received education on strength, gait, and balance training to prevent future risk of falling. Portions of this note may have been carried over from the previous visit and updated as appropriate. Please note this office utilizes paper charting in addition to the electronic medical record. A list of current medications, vitals, and PMH is available there as the clinical staff outside of myself do not have access to [employer] charting during the clinic day operations. As part of providing quality comprehensive care the current medications, vitals, and PMH were reviewed in the paper chart. Assessment and Plan Assessment and Plan (1) Lumbar spondylosis: Plan The patient has had over 3 months of moderate to severe low back pain with functional impairment and inadequate response to conservative care including NSAIDS (unless there are contraindication such as concurrent blood thinners), multiple oral or topical pain medications, and home exercise program/physical therapy.? Patient has completed >6 weeks of guided home exercise program and/or formal physical therapy program without relief of their symptoms.? The Oswestry Disability Index was completed, and the patient scored a 34%.? proceed with bilateral L3,4,5,S1 MBB #2 in consideration of RFA for facet mediated pain continue otc nsaids prn, can utilize otc tylenol PRN. encouraged to start with 500mg BID-TID PRN pain continue HEP as tolerated f/u after each injection
== END 2025-11-26 13:22 | disposition home or self-care (01) ==
LOC: PM 13:21
PROVIDERS: PCP Nurse Practitioner; Visit Provider Nurse Practitioner
DX: M47.816 Spondylosis without myelopathy or radiculopathy, lumbar region (principal)
CPT/HCPCS: G0463